=== PATIENT | female | born 1970 | race Caucasian/White ===

== ENCOUNTER 2022-10-09 23:36 | Emergency (ER) | payer MEDICAID, SELFPAY ==
[2022-10-09 23:41] VITALS: BP 144/91; PULSE 77; RESP 20; TEMP 36.8; O2SAT 98; BMI 47.9
--- NOTE | 2022-10-10 00:38 | ED_ITS ---
HPI - Back Pain/Injury General Chief Complaint: Back Pain/Injury Stated Complaint: FLANK PAIN- RIGHT SIDE, COLD Time Seen by Provider: 10/10/22 00:21 Source: patient Source comment: patient Mode of arrival: Wheelchair Limitations: no limitations History of Present Illness HPI Narrative: patient with chronic back pain - sees Dr Cox in [place]. She presents with pain in the mid right back - spasms that have been present for over a week. She had an injection procedure with Dr Cox on 10/03/22 and has been taking Tylenol and Gabapentin for the pain. She said it is not any better. No urinary symptoms, fever or vomiting. Pain localized to the right mid and lower back. no bowel or bladder dysfunction. No weakness, paralysis or sensory changes in the Lower Extremities. Related Data Allergies Allergy/AdvReac Type Severity Reaction Status Date / Time aspirin Allergy Uncoded 10/09/22 23:45 [facility] Social History Smoking status: Never smoker Exam Narrative Exam Narrative: General: Alert, no acute distress, patient resting comfortably Skin: warm, intact, no pallor noted Head: Normocephalic, atraumatic Eye: Normal conjunctiva Respiratory: No acute distress Back: inspection of the back shows no obvious deformity, no swelling, no ecchymosis, contusion, abrasion, swelling, erythema, fluctuance or induration. Tenderness noted to right paralumbar soft tissue. Straight leg raise on left is positive. Straight leg raise on right is positive. No CVA tenderness noted bilaterally. Musculoskeletal: No deformity noted to bilateral lower extremities. no cyanosis or mottling noted. normal pulses at DP and PT 2+ bilaterally and symmetrically. Normal 5/5 strength at ankles with dorsiflexion and plantar flexion. Patient is able to ambulate. Normal sensation noted to both lower extremities. Neurological: AAOx4, normal sensory and motor observed. L5-S1 reflexes intact symmetrically. DTR 2+ at patellar bilaterally. Psychiatric: Cooperative and interactive. Constitutional Vital Signs - 24 hr 10/09/22 23:41 Temperature 98.3 F Pulse Rate [Monitor] 77 Respiratory Rate 20 Blood Pressure [Right Arm] 144/91 H Pulse Oximetry 98 Oxygen Delivery Method Room Air Course Vital Signs Vital signs: Vital Signs Temperature 98.3 F 10/09/22 23:41 Pulse Rate 77 10/09/22 23:41 Respiratory Rate 20 10/09/22 23:41 Blood Pressure 144/91 H 10/09/22 23:41 Pulse Oximetry 98 10/09/22 23:41 Oxygen Delivery Method Room Air 10/09/22 23:41 Temperature 98.3 F 10/09/22 23:41 Pulse Rate 77 10/09/22 23:41 Respiratory Rate 20 10/09/22 23:41 Blood Pressure 144/91 H 10/09/22 23:41 Pulse Oximetry 98 10/09/22 23:41 Oxygen Delivery Method Room Air 10/09/22 23:41 MDM - Back Pain/Injury MDM Narrative Medical decision making narrative: no trauma, new neurological symptoms or exam findings consistent with acute cauda equina syndrome, spinal abscess or other acute neurosurgical emergency that requires radiographic testing or emergent intervention. 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 Discharge Plan Discharge Chief Complaint: Back Pain/Injury Clinical Impression: Acute exacerbation of chronic low back pain Patient Disposition: Home, Self-Care Time of Disposition Decision: 00:37 Instructions: Back Pain (ED) Stand Alone Forms: Portal Instructions Referrals: ARIANNE COX [Physician] - 1 week Follow Up [place]
[2022-10-10] MEDS: METHYLPREDNISOLONE SOD SUCC PF 125 MG/2 ML VIAL IM (01:02)
[2022-10-10] MEDS: KETOROLAC TROMETHAMINE 60 MG/2 ML VIAL IM (01:02)
== END 2022-10-10 01:10 | disposition home or self-care (01) ==
PROVIDERS: Emergency Provider Emergency Medicine
DX: M54.50 Low back pain, unspecified (principal); G89.29 Other chronic pain
CPT/HCPCS: 96372; 99284; J2930

== ENCOUNTER 2023-01-01 09:07 | Outpatient (OUT) | payer MEDICAID, SELFPAY ==
[2023-01-01 09:26] LABS: Basophils Percent Auto 0.5 % (0.2-2.0); Eosinophils Absolute Auto 0.1 10^3/uL (0.0-0.7); Eosinophils Percent Auto 2.3 % (0.9-7.0); Hematocrit 44.3 % (36.0-48.0); Immature Granulocytes Abs Auto 0.01 10^3/uL (0.00-0.03); Immature Granulocytes Pct Auto 0.2 % (0.0-0.5); Lymphocytes Absolute Auto 1.4 10^3/uL (1.2-3.8); Lymphocytes Percent Auto 24.1 % (20.5-60.0); Mean Corpuscular HGB Conc 33.9 g/dL (29.9-35.2); Mean Corpuscular Volume 88.6 fL (81.0-99.0); Mean Platelet Volume 10.1 fL (9.5-13.5); Monocytes Absolute Auto 0.4 10^3/uL (0.3-0.8); Monocytes Percent Auto 6.9 % (1.7-12.0); Neutrophils Absolute Auto 3.7 10^3/uL (1.4-6.5); Platelet Count 277 10^3/uL (150-450); Red Cell Distribution Width 13.2 % (11.0-15.0); White Blood Count 5.7 10^3/uL (4.0-11.0)
[2023-01-01 10:48] LABS: Alanine Aminotransferase 39 U/L (14-59); Albumin Globulin Ratio 0.7; Albumin Level 3.4 g/dL (3.4-5.0); Alkaline Phosphatase 102 U/L (46-116); Anion Gap 13.4; Aspartate Amino Transferase 23 U/L (15-37); BUN Creatinine Ratio 14.8; Bilirubin Total 0.6 mg/dL (0.2-1.0); Calcium 9.6 mg/dL (8.5-10.1); Carbon Dioxide 25.4 mmol/L (21.0-32.0); Chloride 102 mmol/L (98-107); Chol HDL Ratio 3.5; Cholesterol 151 mg/dL (<=200); Estimated GFR (African America >60 (>=60); Estimated GFR (Non-African Ame >60 (>=60); Free T3 3.11 pg/mL (2.18-3.98); Globulin 4.9 g/dL; Glucose 111 mg/dL (74-106); HDL Cholesterol 43 mg/dL (40-60); LDL Cholesterol Calculated 81.4 mg/dL; Potassium 3.8 mmol/L (3.5-5.1); Sodium 137 mmol/L (136-145); Total Protein 8.3 g/dL (6.4-8.2); Triglycerides 133 mg/dL (<=150); VLDL CHOLESTEROL 26.6 mg/dL
[2023-01-01 11:16] LABS: Estimated Average Glucose 123 mg/dL; Glycohemoglobin A1C 5.9 % (4.5-6.2)
[2023-01-02 10:11] LABS: Insulin 34.9 uIU/mL (2.6-24.9)
== END 2023-01-01 09:08 | disposition home or self-care (01) ==
LOC: LAB 09:09
PROVIDERS: PCP Nurse Practitioner Family; Visit Provider Nurse Practitioner Family
DX: Z02.89 Encounter for other administrative examinations (principal); E78.70 Disorder of bile acid and cholesterol metabolism, unspecified; R53.83 Other fatigue; E16.1 Other hypoglycemia; E55.9 Vitamin D deficiency, unspecified
CPT/HCPCS: 36415; 80053; 80061; 82306; 83036; 83525; 83540; 84436; 84443; 84481; 85025

== ENCOUNTER 2023-03-31 16:17 | Outpatient (OUT) | payer MEDICAID, SELFPAY | END 2023-03-31 16:18 | disposition home or self-care (01) | LOC: SLEEP 16:17 | DX: G47.33 Obstructive sleep apnea (adult) (pediatric) (principal) | CPT/HCPCS: 95806 ==

== ENCOUNTER 2023-05-15 16:04 | Outpatient (OUT) | payer MEDICAID, SELFPAY ==
--- NOTE | 2023-05-15 16:09 | MR_ITS ---
The [address] [address] Patient Name: DOUG CARO MRN: [facility]:[id number] date: 1970 Sex: F Assigned Patient Location: MRI Current Patient Location: MRI Accession/Order Number: [id number] Exam Date: 05/15/2023 16:50 Report Date: 05/16/2023 11:17 At the request of: RATNA LOPEZ Procedure: MR head/brain wo/w con EXAM: MR head/brain wo/w con HISTORY: chronic migraine without aura G43.709 COMPARISON: MR brain 03/26/2021. TECHNIQUE: Multiplanar multisequence MR imaging of the brain was performed with and without intravenous contrast. FINDINGS: Calvarium/skull base: No focal marrow replacing lesion suggestive of neoplasm. Orbits: Grossly unremarkable. Paranasal sinuses: Diffuse mild to moderate mucosal thickening of the paranasal sinuses. No air-fluid level. Brain: No restricted diffusion. Similar mild T2 FLAIR signal hyperintensities are present involving supratentorial white matter. Parenchymal volume is grossly appropriate. No mass effect, hemorrhage, or hydrocephalus. Grossly normal flow-related signal in the major intracranial arteries and dural sinuses. Additional comments: Subtotal right mastoid effusion. MR/MR head/brain wo/w con IMPRESSION: 1. No acute intracranial process. 2. Scattered nonenhancing T2 hyperintense white matter lesions which are nonspecific, typically attributed to prior trauma/inflammation/demyelination, or chronic ischemia associated with migraine/atherosclerosis. 3. The nasal sinus disease. No air-fluid level. Electronically authenticated by: LAY MAXWELL Date: 05/16/2023 11:17
--- OUTSIDE RECORDS SUMMARY | 2023-05-15 16:09 | XMS_ITS | CCD ---
Author Name Unknown Address [address] [place] [address] Organization [facility] Care Team Providers Care Payroll Supervisor Name Role Phone ELTAHAWY, EHAB A Admitting Unavailable ELTAKAREEM, EHAB A Attending Unavailable ALYSSA ARREOLA Primary Care Unavailable ALYSSA ARREOLA Referring Unavailable ALYSSA ARREOLA Primary Care Physician [phone] Asif Cox Unavailable Destini Kilgore Unavailable Mellissa Strange Unavailable MATTHIAS Arreola Primary Care Provider MD Asif Cox Attending Provider [phone] ADONAY Arreola-Jess Shah Lesly Primary Care Provider MD Asif Cox Attending Provider ADONAY Arreola-Jess Grace Primary Care Provider MD Asif Cox Attending Provider ALYSSA ARREOLA Primary Care Unavailable ALYSSA ARREOLA Admitting Unavailable ALYSSA ARREOLA Attending Unavailable SOLITARIO ., DR KIDD Attending Unavailable SOLITARIO ., DR KIDD Consulting Unavailable ALYSSA ARREOLA Primary Care Unavailable SOLITARIO ., DR KIDD Admitting Unavailable SOLITARIO ., DR KIDD Attending Unavailable SOLITARIO ., DR KIDD Consulting Unavailable MAXWELL ALYSSA Primary Care Unavailable SOLITARIO ., DR KIDD Admitting Unavailable ZIEBER, DR AGUSTIN Yu Consulting Unavailable MAXWELL, ALYSSA Admitting Unavailable MAXWELL, ALYSSA Attending Unavailable ALYSSA ARREOLA Consulting Unavailable MAXWELL, ALYSSA Primary Care Unavailable MAXWELL, ALYSSA Admitting Unavailable MAXWELL, ALYSSA Attending Unavailable MAXWELL, ALYSSA Consulting Unavailable MAXWELL, ALYSSA Primary Care Unavailable DIAB ., FRANNIE Admitting Unavailable MELLISSA PRIEST Consulting Unavailable MAXWELL, ALYSSA Primary Care Unavailable DIAB ., FRANNIE Attending Unavailable DIAB ., FRANNIE Consulting Unavailable HAY ., DR DELACRUZ Admitting Unavailable HAY ., DR DELACRUZ Attending Unavailable HAY ., DR DELACRUZ Consulting Unavailable MAXWELL, ALYSSA Primary Care Unavailable CHELY KEITH Consulting Unavailable MAXWELL, ALYSSA Primary Care Unavailable BROOKE, ASIF Attending Unavailable BROOKE, ASIF Admitting Unavailable BROOKE, ASIF Admitting Unavailable MAXWELL, ALYSSA Primary Care Unavailable BROOKE, ASIF Attending Unavailable SOLITARIO ., DR KIDD Consulting Unavailable SOLITARIO ., DR KIDD Admitting Unavailable SOLITARIO ., DR KIDD Attending Unavailable MAXWELL, ALYSSA Primary Care Unavailable ZIEBER, DR AGUSTIN Yu Consulting Unavailable MAXWELL, ALYSSA Primary Care Unavailable MAXWELL, ALYSSA Admitting Unavailable MAXWELL, ALYSSA Attending Unavailable MAXWELL, ALYSSA Consulting Unavailable SUSIE ESTRADA Admitting Unavailable SEAN, SUSIE Attending Unavailable SPROUSUSIE Lal Consulting Unavailable MAXWELL, ALYSSA Primary Care Unavailable SOLITARIO ., DR KIDD Admitting Unavailable SOLITARIO ., DR KIDD Attending Unavailable SOLITARIO ., DR KIDD Consulting Unavailable MAXWELL, ALYSSA Primary Care Unavailable SOLITARIO ., DR KIDD Admitting Unavailable MAXWELL, ALYSSA Primary Care Unavailable SOLITARIO ., DR KIDD Attending Unavailable Maxwell, SANDWICH ARTIST[facility] Primary [facility] Provider Jame, ADONAY Destini Attending Provider WATSON CARDENAS Attending Unavailable Dioni Flores Attending Unavailable Brooke, Asif S Admitting Unavailable Brooke, Asif S Attending Unavailable Maxwell, Alysas Lesly Primary Care Unavailable Kilgore, Destini Admitting Unavailable Kilgore, Destini Attending Unavailable Maxwell, Alyssa Lesly Primary Care Unavailable Glynn, Alexey Admitting Unavailab le Glynn, Alexey Attending Unavailab le Maxwell, Alyssa Lesly Primary Care Unavailable Brooke, Asif S Admitting Unavailable Brooke, Asif S Attending Unavailable Maxwell, Alyssa Lesly Primary Care Unavailable Brooke, Asif S Admitting Unavailable Brooke, Asif S Attending Unavailable Maxwell, Alyssa Lesly Primary Care Unavailable Allergies Allergy Classification Reported Allergen(s) Allergy Type Date of Onset Reaction(s) Facility (20 sources) Aspirin; Translations: [aspirin] Drug Allergy 2 Tremor (finding) [place] Other (7 sources) Desonide; Translations: [desonide topical] Drug Allergy 3 Unknown [facility] (4 sources) Tape 1 Drug allergy Eruption of skin (disorder) [facility] Comment on above: adhesive (6 sources) Adhesive Tape; Translations: [adhesive tape] Allergy to substance 2 Rash [facility] (2 sources) Aspirin Drug Allergy 3 [facility] (1 source) Adhesive Tape; Translations: [Tape] Propensity to adverse reactions (disorder) [facility] Repository (1 source) Aspirin Drug Allergy 3 [facility] Repository Medications Current Medications Medication Drug Class(es) Dates Sig (Normalized) Sig (Original) Aimovig SureClick 70 mg/mL subcutaneous solution (2 sources) Start: 08-09-2021 Aimovig SureClick 70 mg/mL subcutaneous solution 70 mg Start Date: 08/09/21 Status: Ordered atorvastatin (20 sources) HMG-CoA Reductase Inhibitor Start: 04-23-2019 atorvastatin Oral, Daily, Refills(s) 0 Start Date: 04/23/19 Status: Ordered take 1 tablet by elyssa th every twenty-four hours Lipitor 40 MG 1 tablet Orally Once a day Not-Taking/PRN benztropine mesylate 0.5 mg oral tablet (20 sources) Anticholinergic, Antihistamine Start: 03-06-2021 take 0.5 mg by mouth twice daily Benztropine Active 0.5 MG PO Twice daily March 06, 2021 12:00am Start: 04-23-2019 benztropine Re fills(s) 0 Start Date: 04/23/19 Status: Ordered take 1 tablet by elyssa th every twenty-four hours Benztropine Mesylate 0.5 MG 1 tablet at bedtime Orally Once a day Active brexpiprazole 4 mg oral tablet (20 sources) Atypical Antipsychotic Start: 03-06-2021 take 1 tablet by mouth once daily in the evening Brexpiprazole (Rexulti) 4 mg tablet Active 4 MG PO Every evening March 06, 2021 12:00am cephalexin 500 mg oral capsule (2 sources) Cephalosporin Antibacterial Start: 10-09-2021 End: 10-16-2021 take 1 capsule by mouth every twelve hours Keflex 500 mg Cap 500 mg = 1 cap(s), Oral, q12hr, X 7 day(s), # 14 cap(s), Refills(s) 0, Pharmacy: [facility]/pharmacy #[id number], 173, cm, 08/09/21 11:09:00 EDT, Height/Length Dosing, 142, kg, 08/09/21 11:09:00 EDT, Weight Dosing Start Date: 10/09/21 Stop Date: 10/16/21 Status: Ordered cyclobenzaprine hydrochloride 5 mg oral tablet (19 sources) Muscle Relaxant Start: 08-29-2021 take 5 mg by mouth once daily at bedtime Cyclobenzaprine Active 5 MG PO Daily at bedtime August 28, 2021 11:00pm Daily Mohan (20 sources) take 1 tablet by mouth twice daily Daily Mohan 1 tablet Orally Twice a day Active Daily Mohan - (10 sources) take 1 tablet by mouth once daily Daily Mohan - 1 tablet Orally Once a day Active diclofenac sodium 75 mg delayed release oral tablet (15 sources) Nonsteroidal Anti-inflammatory Drug Start: take 1 tablet by mouth every twelve hours Diclofenac Sodium 75 MG 1 tablet as needed Orally Twice a day for 7 days Oct, Active Start: 04-23-2019 diclofenac Ora l, Refills(s) 0 Start Date: 04/23/19 Status: Ordered duloxetine (4 sources) Serotonin and Norepinephrine Reuptake Inhibitor Start: 04-23-2019 duloxetine Oral, Refills(s) 0 Start Date: 04/23/19 Status: Ordered 1 ml erenumab-aooe 70 mg/ml auto-injector (2 sources) Start: 08-09-2021 Aimovig SureCl ick 70 mg/mL subcutaneous solution 70 mg Start Date: 08/09/21 Status: Ordered famotidine 40 mg oral tablet (5 sources) Histamine-2 Receptor Antagonist Start: 03-06-2021 take 40 mg by mouth twice daily Famotidine Active 40 MG PO Twice daily March 06, 2021 12:00am fluticasone propionate 0.05 mg/actuat metered dose nasal spray (7 sources) Corticosteroid Start: 03-06-2021 Fluticasone Propionate Active 50 MCG INTRANASAL Daily March 06, 2021 12:00am Start: 05-03-2019 fluticasone 0. 05 mg/inh Nasal Ackley Nasal, Daily, Refill(s) 0 Start Date: 05/03/19 Status: Ordered fluticasone 0.05 mg/inh Nasal Ackley (2 sources) Start: 05-03-2019 fluticasone 0. 05 mg/inh Nasal Ackley Nasal, Daily, Refill(s) 0 Start Date: 05/03/19 Status: Ordered furosemide 40 mg oral tablet (5 sources) Loop Diuretic Start: 03-06-2021 take 40 mg by mouth twice daily Furosemide Active 40 MG PO Twice daily March 06, 2021 12:00am gabapentin 300 mg oral capsule (20 sources) Anti-epileptic Agent Start: 08-29-2021 take 300 mg by mouth three times daily Gabapentin Active 300 MG PO Three times daily August 28, 2021 11:00pm Start: 08-02-2021 Gabapentin 300 MG 1 capsule Orally once daily for 3-4 days gradually increasing by 1 cap until taking 1 capsule three times daily for 30 day(s) G89.29 Chronic pain Jul, Active Start: 04-23-2019 gabapentin Ora l, Refills(s) 0 Start Date: 04/23/19 Status: Ordered Gabapentin 400 M G 1 capsule Orally two to three times daily for 30 days G89.29 Chronic pain Active Gabapentin 500 m g Orally Twice a day Active lamoTRIgine 200 mg oral tablet (20 sources) Mood Stabilizer, Anti-epileptic Agent Start: 03-06-2021 take 100 mg by mouth once daily Lamotrigine Active 100 MG PO Daily March 06, 2021 12:00am Start: 03-06-2021 take 200 mg by mouth once colby y Lamotrigine Active 200 MG PO Daily March 06, 2021 12:00am take 1 tablet by elyssa every twenty-four hours lamoTRIgine 200 MG 1 tablet on the tongue and allow to dissolve Orally Once a day Active linaclotide 0.145 mg oral capsule (1 source) Guanylate Cyclase-C Agonist Start: 07-04-2021 take 1 capsule by mouth every twenty-four hours Linzess 145 MCG 1 CAPSULE Orally Once a day for 30 day(s) Jun, Active Meclizine (4 sources) Antiemetic Start: 04-23-2019 meclizine TID, Refills(s) 0 Start Date: 04/23/19 Status: Ordered meloxicam (4 sources) Nonsteroidal Anti-inflammatory Drug Start: 04-23-2019 meloxicam Oral, Daily, Refills(s) 0 Start Date: 04/23/19 Status: Ordered methocarbamol 750 mg oral tablet (9 sources) Muscle Relaxant take 1 tablet by mouth every four hours Methocarbamol 750 MG 1 tablet Orally every 4 hrs Active methylPREDNISolone 4 mg oral tablet (2 sources) Corticosteroid Start: 04-09-2023 Medrol (Sebastian) 4 MG as directed Orally for daily dose take half with breakfast half with dinner for 6 days Mar, Active naratriptan 2.5 mg oral tablet (10 sources) Serotonin-1b and Serotonin-1d Receptor Agonist take 1 tablet by mouth every twenty-four hours Naratriptan HCl 2.5 MG 1 tablet Orally Once a day Active omeprazole 40 mg delayed release oral capsule (10 sources) Proton Pump Inhibitor take 1 capsule by mouth once daily Omeprazole 40 MG 1 capsule 30 minutes before morning meal Orally Once a day Active oxyCODONE hydrochloride 5 mg oral capsule (4 sources) Opioid Agonist Start: 02-28-2020 take 1 mg by mouth every six hours oxyCODONE 5 mg Cap mg cap(s), Oral, q6hr, Refills(s) 0 Start Date: 02/28/20 Status: Ordered pantoprazole 40 mg delayed release oral tablet (9 sources) Proton Pump Inhibitor Start: 03-06-2021 take 40 mg by mouth twice daily Pantoprazole Active 40 MG PO Twice daily March 06, 2021 12:00am Start: 04-23-2019 pantoprazole D aily, Refills(s) 0 Start Date: 04/23/19 Status: Ordered rizatriptan 10 mg disintegrating oral tablet (20 sources) Serotonin-1b and Serotonin-1d Receptor Agonist Start: 08-29-2021 Rizatriptan Active 10 MG PO As Directed August 28, 2021 11:00pm take 1 tablet by elyssa th every twenty-four hours Maxalt 10 MG 1 tablet Orally Once a day Not-Taking/PRN simvastatin 40 mg oral tablet (10 sources) HMG-CoA Reductase Inhibitor take 1 tablet by mouth every twenty-four hours Simvastatin 40 MG 1 tablet in the evening Orally Once a day Active spironolactone 50 mg oral tablet (20 sources) Aldosterone Antagonist Start: 2020 take 50 mg by mouth once daily Spironolactone Active 50 MG PO Daily March 06, 2021 12:00am sucralfate 1000 mg oral tablet (5 sources) Aluminum Complex Start: 2020 take 1 g by mouth four times daily Sucralfate Active 1 GM PO Four times daily March 06, 2021 12:00am sulfamethoxazole 800 mg / trimethoprim 160 mg oral tablet (2 sources) Dihydrofolate Reductase Inhibitor Antibacterial, Sulfonamide Antimicrobial Start: 2021 End: 2021 Bactrim DS 800 mg-160 mg Tab 1 tab(s), Oral, BID for 7 day(s), 14 tab(s), Refill(s) 0, [facility]/pharmacy #[id number], 173, cm, 08/09/21 11:09:00 EDT, Height/Length Dosing, 142, kg, 08/09/21 11:09:00 EDT, Weight Dosing Start Date: 08/09/21 Stop Date: 08/16/21 Status: Ordered SZSTANDARD1-Topical Cream Baclofen 2%, Cyclobenzaprine HCL 2%, Diclofenac Na 3%, Gabapentin 6%, Lidocaine HCL 2% Cream (15 sources) Start: 2021 SZSTANDARD1-Topical Cream Baclofen 2%, Cyclobenzaprine HCL 2%, Diclofenac Na 3%, Gabapentin 6%, Lidocaine HCL 2% Cream 1-2 grams TOPICALLY APPLY 1-2 GRAMS FOR 2-3 MINUTES EVERY 6-8 HOURS for 30 days G89.29 Chronic pain Sep, Active TENS Unit (20 sources) Start: 2022 TENS Unit Use as directed. Apr, Active Start: 01-18-2022 TENS Unit Use as directed. Dec, Active tiZANidine 4 mg oral tablet (1 source) Central alpha-2 Adrenergic Agonist Start: 10-15-2021 tiZANidine HCl 4 MG 1/2 to 1 tablet as needed Orally once to twice daily as needed for 30 days G89.29 Chronic pain Sep, Active 24 hr tolterodine tartrate 4 mg extended release oral capsule (10 sources) Cholinergic Muscarinic Antagonist Start: 03-06-2021 take 4 mg by mouth once daily Tolterodine Active 4 MG PO Daily March 06, 2021 12:00am Start: 03-06-2021 End: 08-29-2021 Tolterodine Discontinued 2 M G PO As Directed March 06, 2021 12:00am August 29, 2021 9:31am 24 hr venlafaxine 75 mg extended release oral capsule (20 sources) Serotonin and Norepinephrine Reuptake Inhibitor Start: 03-06-2021 take 225 mg by mouth once daily Venlafaxine Active 225 MG PO Daily March 06, 2021 12:00am take 2 capsules by m outh every twenty-four hours Venlafaxine HCl ER 150 MG 2 capsule with food Orally Once a day Active take 1 capsule by mo uth every twenty-four hours Effexor XR 75 MG 1 capsule with food Orally Once a day Not-Taking take 1 capsule by mo uth every twenty-four hours Venlafaxine HCl ER 150 MG 1 capsule with food Orally Once a day Active take 1 tablet by elyssa th every twenty-four hours Venlafaxine HCl 75 MG 1 tablet with food Orally Once a day Active zonisamide 100 mg oral capsu le (17 sources) Anti-epileptic Agent take 1 capsule by m outh every twenty-four hours Completed/Discontinued Medications Medication Drug Class(es) Dates Sig (Normalized) Sig (Original) acetaminophen 325 mg / butalbital 50 mg oral tablet (20 sources) Barbiturate take 1 tablet by elyssa th every four hours Butalbital-Acetamin ophen 50-325 MG 1 tablet as needed Orally every 4 hrs Not-Taking/PRN take 1 tablet by mouth every fou r hours acetaminophen 325 mg / butalbital 50 mg / caffeine 40 mg oral tablet (5 sources) Barbiturate, Central Nervous System Stimulant, Methylxanthine Start: 03-06-2021 End: 05-04-2022 [id number]-Qkw f Discontinued 1 TAB PO As Directed March 06, 2021 12:00am August 29, 2021 9:35am amitriptyline hydrochloride 150 mg oral tablet (20 sources) Tricyclic Antidepressant take 1 tablet by mouth every twenty-fo ur hours Amitriptyline HCl 150 MG 1 tablet at bedtime Orally Once a day Not-Taking/PRN azithromycin 250 mg oral tablet (5 sources) Macrolide Antimicrobial Start: 03-06-2021 End: 08-15-2021 Azithromycin Discontinued MG TABLET March 06, 2021 12:00am August 15, 2021 8:58am docusate sodium 50 mg / sennosides, shelter 8.6 mg oral tablet (20 sources) Start: 07-09-2021 take 8.6-50 mg by mouth once daily at bedtime Senokot S 8.6-50 MG 2 tab(s) Orally qhs for 30 day(s) Jun, Not-Taking/PRN Emgality (15 sources) Emgality Not-Maicol ing/PRN Emgality Not-Maicol ing Emgality Active nitrofurantoin, macrocrystals 25 mg / nitrofurantoin, monohydrate 75 mg oral capsule (9 sources) Nitrofuran Antibacterial take 1 capsule by mouth every twenty-four hours Macrobid 100 MG 1 capsule with food Orally Once a day Not-Taking PARoxetine hydrochloride 20 mg oral tablet (20 sources) Serotonin Reuptake Inhibitor Start: End: Paroxetine Hcl Discontinued 20 MG PO As Directed March 06, 2021 12:00am August 29, 2021 9:35am Start: 04-23-2019 paroxetine Ora l, Refills(s) 0 Start Date: 04/23/19 Status: Ordered take 2 tablets by mo [facility] every twenty-four hours Paxil 30 MG 2 tablets Orally Once a day Not-Taking take 2 tablets by mo ut every twenty-four hours microencapsulated potassium chloride 20 meq extended release oral tablet (5 sources) Start: 03-06-2021 End: 08-29-2021 Potassium Chloride (Klor-Con M20) 20 mEq tablet,ER particles/crystals Discontinued 20 MEQ PO As Directed March 06, 2021 12:00am August 29, 2021 9:35am solifenacin succinate 5 mg oral tablet (9 sources) Cholinergic Muscarinic Antagonist take 1 tablet by mouth every twenty-fou r hours VESIcare 5 MG 1 tablet Orally Once a day Not-Taking SUMAtriptan 100 mg oral tablet (20 sources) Serotonin-1b and Serotonin-1d Receptor Agonist take 1 tablet by mouth every two hours as needed, then take 1 tablet by mouth twice daily as needed Imitrex 100 MG 1 tablet at least 2 hours between doses as needed Orally Twice a day Not-Taking/PRN topiramate 100 mg oral tablet (18 sources) Start: 03-06-2021 End: 08-29-2021 Topiramate Discontinued 100 MG PO As Directed March 06, 2021 12:00am August 29, 2021 9:35am Start: 04-23-2019 topiramate Ora l, Refills(s) 0 Start Date: 04/23/19 Status: Ordered triamcinolone acetonide 40 mg/ml injectable suspension (20 sources) Corticosteroid Start: 10-03-2022 Kenalog-40 Dec, 60 mg Start: 02-07-2022 Kenalog-40 Jan, 40 mg Start: 11-20-2020 Kenalog -40 mg Oct, 40 mg Problems Active Problems Problem Classification Problem Date Documented Da te Episodic/Chronic Abdominal pain (5 sources) Lower abdominal pain; Translations: [Lower abdominal pain, unspecified] 07-18-2021 Episodic Anxiety disorders (1 source) Anxiety disorder, unspecified; Translations: [ANXIETY DISORDER UNSPECIFIED] Onset: 2 Chronic Disorders of lipid metabolism (20 sources) Hyperlipidemia; Translations: [Dyslipidemia] Onset: 2 04-23-2019 Chronic Epilepsy; convulsions (4 sources) Seizure 04-23-2019 Episodic Esophageal disorders (20 sources) Gastroesophageal reflux disease; Translations: [Gastro-esophageal reflux disease without esophagitis] Onset: 2 Resolved: 2 04-23-2019 Chronic Essential hypertension (1 source) Essential (primary) hypertension; Translations: [ESSENTIAL PRIMARY HYPERTENSION] Onset: 2 Chronic Genitourinary symptoms and ill-defined conditions (20 sources) Urge incontinence; Translations: [Urge incontinence of urine] Onset: 2 Chronic Genitourinary symptoms and ill-defined conditions (20 sources) Retention of urine; Translations: [Retention of urine, unspecified] Onset: 2 Episodic Headache; including migraine (20 sources) Migraine; Translations: [Migraine, unspecified, not intractable, without status migrainosus] 04-23-2019 Chronic Immunizations and screening for infectious disease (1 source) Encounter for screening for human papillomavirus (HPV); Translations: [ENC SCREENING HUMAN PAPILLOMAVIRUS] Onset: 3 Episodic Mood disorders (20 sources) Depressive disorder; Translations: [Major depressive disorder, single episode, unspecified] Onset: 2 04-23-2019 Chronic Mood disorders (1 source) Mood disorders; Translations: [DEPRESSION UNSPECIFIED] Onset: 3 Osteoarthritis (20 sources) Arthritis; Translations: [Osteoarthritis of knee] Onset: 3 04-23-2019 Chronic Other aftercare (1 source) Other positive printer operator (current) drug therapy; Translations: [OTH TANK ERECTOR CURRENT DRUG THERAPY] Onset: 3 Episodic Other connective tissue disease (20 sources) Fibromyalgia; Translations: [Fibromyalgia] 04-23-2019 Episodic Other connective tissue disease (5 sources) Myalgia, other site Episodic Other connective tissue disease (4 sources) Fibromyalgia; Translations: [FIBROMYALGIA] Onset: 3 Episodic Other female genital disorders (1 source) Polyp of corpus uteri; Translations: [POLYP OF CORPUS UTERI] Onset: 3 Episodic Other gastrointestinal disorders (20 sources) Irritable bowel syndrome; Translations: [Irritable bowel syndrome without diarrhea] Chronic Other gastrointestinal disorders (20 sources) Irritable bowel syndrome characterized by constipation; Translations: [Irritable bowel syndrome with constipation] Chronic Other gastrointestinal disorders (1 source) Irritable bowel syndrome with constipation Onset: 2 Resolved: 2 Chronic Other gastrointestinal disorders (20 sources) Constipation; Translations: [Constipation, unspecified] 07-18-2021 Episodic Other nervous system disorders (4 sources) Neuropathy 04-23-2019 Chronic Other nervous system disorders (20 sources) Chronic pain; Translations: [Other chronic pain] Chronic Other nervous system disorders (20 sources) Other chronic pain Onset: 1 Resolved: 2 Chronic Other nervous system disorders (1 source) Other disorders of peripheral nervous system; Translations: [OTH DISORDERS PERIPHERAL NERV SYS] Onset: 3 Chronic Other nervous system disorders (1 source) Other chronic pain; Translations: [Other chronic pain] Onset: 3 Chronic Other non-traumatic joint disorders (4 sources) Shoulder joint pain; Translations: [Pain in right shoulder] Episodic Other non-traumatic joint disorders (8 sources) Pain in right shoulder; Translations: [Right shoulder pain] Episodic Other non-traumatic joint disorders (2 sources) Pain in right knee Episodic Other non-traumatic joint disorders (1 source) Pain in left hip Episodic Other nutritional; endocrine; and metabolic disorders (4 sources) Body mass index 40+ - severely obese 05-03-2019 Chronic Other nutritional; endocrine; and metabolic disorders (20 sources) Morbid obesity; Translations: [Morbid (severe) obesity due to excess calories] Chronic Other nutritional; endocrine; and metabolic disorders (1 source) Morbid (severe) obesity due to excess calories Onset: 2 Resolved: 2 Chronic Other nutritional; endocrine; and metabolic disorders (5 sources) 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, unspecified; Translations: [DISORDER BILE ACID CHOL METAB UNS] Onset: 2 Chronic Other screening for suspected conditions (not mental disorders or infectious disease) (13 sources) Encounter for screening for malignant neoplasm of cervix; Translations: [Encounter for screening mammogram for malignant neoplasm of breast] Onset: 2 Episodic Other upper respiratory infections (1 source) Acute laryngitis; Translations: [ACUTE LARYNGITIS] Onset: 3 Episodic Residual codes; unclassified (20 sources) Obstructive sleep apnea syndrome; Translations: [Obstructive sleep apnea (adult) (pediatric)] Chronic Residual codes; unclassified (1 source) Obstructive sleep apnea (adult) (pediatric); Translations: [OBSTRUCTIVE SLEEP APNEA] Onset: 3 Chronic Residual codes; unclassified (4 sources) Asymptomatic menopausal state; Translations: [ASYMPTOMATIC MENOPAUSAL STATE] Onset: 3 Episodic Screening and history of mental health and substance abuse codes (1 source) Personal history of nicotine dependence; Translations: [PERSONAL HISTORY OF NICOTINE DEPEND] Onset: 3 Episodic Spondylosis; intervertebral disc disorders; other back problems (20 sources) Lumbosacral spondylosis without myelopathy; Translations: [Spondylosis without myelopathy or radiculopathy, lumbosacral region] Onset: 1 Resolved: 2 Chronic Unclassified (2 sources) COUGH, UNSPECIFIED; Translations: [COUGH, UNSPECIFIED] Onset: 3 Unclassified (1 source) CONTACT W/AND (SUSP) EXPOS COVID-19; Translations: [CONTACT W/AND (SUSP) EXPOS COVID-19] Onset: 3 Unclassified (1 source) Pain in left hip; Translations: [Pain in left hip] Onset: 3 Unclassified (1 source) Pain in right shoulder; Translations: [Pain in right shoulder] Onset: 3 Urinary tract infections (5 sources) Urinary tract infectious disease; Translations: [Urinary tract infection, site not specified] Onset: 2 07-03-2020 Episodic Viral infection (1 source) Viral infection, unspecified; Translations: [VIRAL INFECTION UNSPECIFIED] Onset: 3 Episodic Past or Other Problems Problem Classification Problem Date Documented Da te Episodic/Chronic Conditions associated with dizziness or vertigo (1 source) Dizziness and giddiness; Translations: [DIZZINESS AND GIDDINESS] Onset: 10-24-2021 Episodic Deficiency and other anemia (1 source) Anemia, unspecified; Translations: [ANEMIA UNSPECIFIED] Onset: 09-06-2021 Episodic Diabetes mellitus without complication (1 source) Other abnormal glucose; Translations: [OTHER ABNORMAL GLUCOSE] Onset: 09-06-2021 Episodic Nonspecific chest pain (4 sources) Chest pain, unspecified; Translations: [Other chest pain] Onset: 10-23-2021 Episodic Other endocrine disorders (4 sources) Endocrine disorder, unspecified; Translations: [ENDOCRINE DISORDER UNSPECIFIED] Onset: 05-20-2022 Episodic Other inflammatory condition of skin (1 source) Other pruritus; Translations: [OTHER PRURITUS] Onset: 05-22-2022 Episodic Other non-traumatic joint disorders (2 sources) Pain in left knee Onset: 06-07-2021 Resolved: 07-09-2021 Episodic Spondylosis; intervertebral disc disorders; other back problems (20 sources) Cervicalgia; Translations: [Dorsalgia, unspecified] Onset: 02-26-2021 Resolved: 10-15-2021 Episodic Unclassified (1 source) COUGH, UNSPECIFIED; Translations: [COUGH, UNSPECIFIED] Onset: 07-14-2022 Results Test Name Value Interpretation Reference Range Facility XR hip LT min 2V(w/wo pelvis )*on 04-09-2023 XR hip LT min 2V(w/wo pelvis)* [address] [address] XRay Report Signed Patient: Shailesh Blake MR#: [id number] : 1970 Acct:[id number] Age/Sex: 52 / F ADM Date: 04/09/23 Loc: XD Room: Type: [facility] Attending Dr: Destini Kilgore SANDWICH ARTIST Copies to: Destini Kilgore NP Ordering Provider: Destini Kilgore NP Date of Service: 04/09/23 XR/XR hip LT min 2V(w/wo pelvis)*: Left hip pain Left hip 2 views. Reason for exam: Left hip pain radiates into the joint and down into the knee for 3 days. COMPARISON: None. FINDINGS: Mild degenerative changes of the left hip without acute bony process. XR/XR hip LT min 2V(w/wo pelvis)* IMPRESSION: Mild degenerative changes of the left hip without acute bony process. Impression dictated by: Memo Blanchard Jr., D.O.04/09/2023 3:57 PM Dictation Location: [place] [address] Transcribed By: [facility] 04/09/23 1557 Dictated By: Memo Blanchard Jr, DO 04/09/23 1557 Signed By: 04/09/23 1557 Normal [facility] XR hip LT min 2V(w/wo pelvis)* [facility] [employer] Other XR hip LT min 2V(w/wo pelvis)* [facility] [employer] Other XR hip LT min 2V(w/wo pelvis)* [address] [place] [address] [employer] Other XR hip LT min 2V(w/wo pelvis)* [place] [address] [facility] Other XR hip LT min 2V(w/wo pelvis)* XRay Report [facility] Other XR hip LT min 2V(w/wo pelvis)* Signed [facility] Other XR hip LT min 2V(w/wo pelvis)* Patient: Shailesh Blake MR#: [id number] [facility] Other XR hip LT min 2V(w/wo pelvis)* : 1970 Acct:[id number] [facility] Other XR hip LT min 2V(w/wo pelvis)* Age/Sex: 52 / F ADM Date: 04/09/23 [facility] Other XR hip LT min 2V(w/wo pelvis)* Loc: XD Room: Type: REG CLI [facility] Other XR hip LT min 2V(w/wo pelvis)* Attending Dr: Destini Kilgore NP [facility] Other XR hip LT min 2V(w/wo pelvis)* Copies to: Destini Kilgore NP [facility] Other XR hip LT min 2V(w/wo pelvis)* Ordering Provider: Destini Kilgore NP [facility] Other XR hip LT min 2V(w/wo pelvis)* Date of Service: 04/09/23 [facility] Other XR hip LT min 2V(w/wo pelvis)* XR/XR hip LT min 2V(w/wo pelvis)*: Left hip pain [facility] Other XR hip LT min 2V(w/wo pelvis)* Left hip 2 views. [facility] Other XR hip LT min 2V(w/wo pelvis)* Reason for exam: Left hip pain radiates into the joint and down into the knee for 3 days. [facility] Other XR hip LT min 2V(w/wo pelvis)* COMPARISON: None. [facility] Other XR hip LT min 2V(w/wo pelvis)* FINDINGS: Mild degenerative changes of the left hip without acute bony process. [facility] Other XR hip LT min 2V(w/wo pelvis)* XR/XR hip LT min 2V(w/wo pelvis)* [facility] Other XR hip LT min 2V(w/wo pelvis)* IMPRESSION: Mild degenerative changes of the left hip without acute bony process. [facility] Other XR hip LT min 2V(w/wo pelvis)* Impression dictated by: Memo Blanchard Jr., DPromiseOPromise04/09/2023 3:57 PM [facility] Other XR hip LT min 2V(w/wo pelvis)* Dictation Location: [place] [address] [facility] Other XR hip LT min 2V(w/wo pelvis)* Transcribed By: [facility] 04/09/23 [facility] Other XR hip LT min 2V(w/wo pelvis)* Dictated By: Memo Blanchard Jr, DO 04/09/23 [facility] Other XR hip LT min 2V(w/wo pelvis)* Signed By: [facility] Other XR hip LT min 2V(w/wo pelvis)* 04/09/23 [facility] Other XR thoracic spine 3V*on XR thoracic spine 3V* [facility] Main [place] [address] [place] [id number] XRay Report Signed Patient: Shailesh Blake MR#: [id number] : 1970 Acct:[id number] Age/Sex: 51 / F ADM Date: 10/31/22 Loc: XD Room: Type: [facility] Attending Dr: Asif Cox MD Copies to: Asif Cox MD Ordering Provider: Asif Cox MD Date of Service: 10/31/22 XR/XR thoracic spine 3V*: Mid back pain THORACIC SPINE - - 3 views CLINICAL HISTORY: Fall 3 days ago. Mid back pain. COMPARISON: Thoracic spine 10/15/2021 FINDINGS: Vertebral body heights appear maintained. Endplate degenerative changes. Pedicles appear intact. XR/XR thoracic spine 3V* IMPRESSION: DEGENERATIVE CHANGES WITHOUT ACUTE BONY PROCESS. Impression dictated by: Memo Blanchard Jr., D.O.10/31/2022 7:23 PM Dictation Location: [place] [address] Transcribed By: [facility] 10/31/221922 Dictated By: Memo Blanchard Jr, DO 10/31/221922 Signed By: 10/31/221922 Normal [facility] US PELVIS AND TRANSVAGon US PELVIS AND TRANSVAG EXAMINATION: US PELVIS AND TRANSVAG HISTORY: Polyp of corpus uteri ; uterine polyp COMPARISON: No relevant comparison available. TECHNIQUE: Transabdominal and transvaginal sonographic examination. FINDINGS: UTERUS: Within anterior uterine wall is a 1.5 x 1.4 x 1.3 cm hypoechoic slightly heterogeneous area suspected represent a leiomyoma. Uterus size: 8.0 x 3.8 x 4.3 cm ENDOMETRIUM: Normal homogeneous appearance. Endometrial thickness: 4 mm RIGHT OVARY: Normal size and appearance. Duplex Doppler demonstrates normal waveform and flow; resistive index 0.4. Ovary size: 2.8 x 2.0 x 2.8 cm LEFT OVARY: Not seen. No suspicious adnexal findings. CUL-DE-SAC: Unremarkable. No significant free fluid. BLADDER: Unremarkable. OTHER: None. IMPRESSION: 1. Anterior uterine wall myometrial leiomyoma. No prior studies for comparison. 2. No appreciable polyp within the endometrial cavity. Electronically authenticated by: AGUSTIN CANO Date: 2022-08-27 07:34 Normal [facility] XR DEXA BONE DENSITYon 08-26 XR DEXA BONE DENSITY EXAMINATION: XR DEXA BONE DENSITY, 08/26/2022 3:43 PM EDT HISTORY: Menopause present COMPARISON: DEXA bone densitometry 01/21/2020 TECHNIQUE: Dual-energy X-ray absorptiometry (DEXA) bone density study performed for the axial skeleton. FINDINGS: SPINE ANALYSIS: Average bone mineral density is 1.450 g/cm2. T-score (standard deviation relative to young adult mean): 2.1 . -3.0% change since prior study. HIP ANALYSIS: Lowest bone mineral density is within the right femoral neck, 1.110 g/cm2. T-score (standard deviation relative to young adult mean): 0.5 . -3.8% change since prior study. IMPRESSION: [employer] Classification: Normal - Low Fracture Risk Electronically authenticated by: AGUSTIN CANO Date: 2022-08-26 16:16 Normal [facility] PAP ACOG PANEL 2: 30 to 65on 08-10-2022 . . Normal [facility] Comment on above: Result Comment: Perf ormed at: WB Performed By: #### 4 [id number] #### [facility] [address] [place] [address] Dr. Beth Alanis Age Gdln ACOG Testing 30-65 Normal [facility] Comment on above: Performed By: #### 4 [id number] #### [facility] [address] [place] [address] [address] Beth Alanis DIAGNOSIS: Comment Normal [facility] Comment on above: Result Comment: NEGA TIVE FOR INTRAEPITHELIAL LESION OR MALIGNANCY. Performed at: WB Performed By: #### 4 [id number] #### [facility] [address] [place] [address] [address] Beth Alanis HPV Aptima Negative Normal Negative [facility] Comment on above: Result Comment: This nucleic acid amplification test detects fourteen high-risk HPV types (16,18,31,33,35,39,45,51,52,56,58,59,66,68) without differentiation. Performed at: =G Performed By: #### 4 [id number] #### [facility] [address] [place] [address] [address] Beth Alanis HPV Genotype Reflex Comment Normal [facility] Comment on above: Result Comment: Crit eria not met, HPV Genotype not performed. Performed at: WB Performed By: #### 4 [id number] #### [facility] [address] [place] [address] Dr. Beth Alanis Methodology: Comment Normal [facility] Comment on above: Result Comment: This liquid based ThinPrep(R) pap test was screened with the use of an image guided system. Performed at: WB Performed By: #### 4 [id number] #### [facility] [address] [place] [address] [address] Beth Alanis Note: Comment Normal [facility] Comment on above: Result Comment: The Pap smear is a screening test designed to aid in the detection of premalignant and malignant conditions of the uterine cervix. It is not a diagnostic procedure and should not be used as the sole means of detecting cervical cancer. Both false-positive and false-negative reports do occur. . Performed at: WB Performed By: #### 4 [id number] #### [facility] [address] [place] [address] Dr. Beth Alanis Performed by: Comment Normal [facility] Comment on above: Result Comment: Evelyn Ayala, Civil Designer (ASCP) Performed at: WB Performed By: #### 4 [id number] #### [facility] [address] [place] [address] Dr. Beth Alanis Specimen adequacy: Comment Normal [facility] Comment on above: Result Comment: Sati sfactory for evaluation. Endocervical and/or squamous metaplastic cells (endocervical component) are present. Performed at: WB Performed By: #### 4 [id number] #### [facility] [address] [place] [address] [address] Beth Alanis Covid-19 PCR ([facility])on 06-26 SARS-CoV-2 (COVID-19) RNA ANITA+probe Ql (Unsp spec) Not detected Normal NOT DETECTED [facility] Comment on above: Result Comment: This test is not yet approved or cleared by the [place] FDA. When there are no FDA-approved or cleared tests available, and other criteria are met, FDA can make tests available under an emergency access mechanism called an Emergency Use Authorization (EUA). The EUA for this test is supported by the Bankruptcy Judge of Health and Human Service's (HHS's) declaration that circumstances exist to justify the emergency use of in vitro diagnostics for the detection and/or diagnosis of the virus that causes COVID-19. This EUA will remain in effect (meaning this test can be used) for the duration of the COVID-19 declaration justifying emergency of IVDs, unless it is terminated or revoked by FDA (after which the test may no longer be used). When diagnostic testing is negative, the possibility of a false negative should be considered in the context of a patient's recent exposures and the presence of clinical signs and symptoms consistent with SARS-CoV-2. Performed By: #### B SANDWICH ARTIST, BMP, HSTROPN #### [facility] [address] [place] [address] Dr. Beth Alanis INFLUENZA A AND B AGon 07-14 [facility] SEE BELOW Normal [facility] Comment on above: Result Comment: Nega tive for Flu A protein angiten. Infection due to Flu A cannot be ruled out. Flu A angiten in the sample may be below the detection limit of the test. Performed By: #### I NFLUAB #### [facility] [address] [place] [address] Dr. [facility] Normal [facility] Comment on above: Result Comment: Nega tive for Flu B protein antigen. Infection due to Flu B cannot be ruled out. Flu B antigen in the sample may be below the detection limit of the test. Performed By: #### I NFLUAB #### [facility] [address] [place] [address] Dr. Beth Alanis INFLUENZA A AG Negative Normal NEGATIVE SEE COMMENT [facility] Comment on above: Performed By: #### I NFLUAB #### [facility] [address] [place] [address] Dr. Beth Alanis INFLUENZA B AG Negative Normal NEGATIVE SEE COMMENT [facility] Comment on above: Performed By: #### I NFLUAB #### [facility] [address] [place] [address] Dr. Beth Alanis SYMPTOMATIC COVID-19 ANTIGEN on 07-14-2022 EUA Statement SEE BELOW Normal [facility] Comment on above: Result Comment: This test has not been FDA cleared or approved, but has been authorized by the FDA under an Emergency Use Authorization (EUA) for use by authorized laboratories certified under CLIA that meet the requirements to perform moderate or high complexity testing. This test has been authorized only for the detection of proteins from SARS-CoV-2, not for any other viruses or pathogens. The emergency use of this test is authorized for the duration of the declaration that circumstances exist justifying the authorization of emergency use of in vitro diagnostic tests for detection and/or diagnosis of Covid-19 under section 564(b)(1) of the Act, 21 U.S.C. 360bbb-3(b)(1), unless the declaration is terminated or authorization is revoked sooner. Performed By: #### B SANDWICH ARTISTCHARI, HSTROPN #### [facility] [address] [place] [address] Dr. Beth Alanis SARS-CoV-2 (COVID-19) RNA AINTA+probe Ql (Unsp spec) Negative Normal NEGATIVE [facility] Comment on above: Performed By: #### B CHARI URIAS, HSTROPN #### [facility] [address] [place] [address] Dr. Beth Alanis XR CHEST 1 Von 07-14-2022 XR CHEST 1 V EXAM: Chest x-ray HISTORY: . COUGH . COMPARISON: 10/23/2021 TECHNIQUE: Single view of the chest. FINDINGS: Heart and vascularity are unremarkable. Lungs are free of focal infiltrates. Grossly no bony abnormality is appreciated. Impression: No acute heart or lung disease identified. Electronically authenticated by: MELLISSA PRIEST Date: 2022-07-14 11:13 Normal [facility] XR shoulder RT min 2V*on XR shoulder RT min 2V* [facility] Main [place] [id number] XRay Report Signed Patient: Shailesh Blake MR#: [id number] : 1970 Acct:[id number] Age/Sex: 51 / F ADM Date: 07/08/22 Loc: XD Room: Type: [facility] Attending Dr: Asif Cox MD Copies to: Asif Cox MD Ordering Provider: Asif Cox MD Date of Service: 07/08/22 XR/XR shoulder RT min 2V*: Right shoulder pain 3 views rightshoulder HISTORY:Right shoulder pain COMPARISON:None ACUTE FINDINGS:None DEGENERATIVE CHANGE:Minor degenerative changes. SOFT TISSUE FINDINGS:Unremarkable JOINT EFFUSION:None POSTOP CHANGES:None BONY MINERALIZATION:[place] te XR/XR shoulder RT min 2V* IMPRESSION:Minor degeneration. Impression dictated by: Benito Blake M.D.07/08/2022 1:10 PM Dictation Location: [place] [address] Transcribed By: [facility] 07/08/22 1310 Dictated By: Benito Blake DO 07/08/22 1307 Signed By: 07/08/22 1310 Normal [facility] VAGINITIS/VAGINOSIS DNA PROB Pablo 05-22-2022 Rosie species Negative Normal Negative [facility] Comment on above: Performed By: #### V AGINT #### [facility] [address] [place] [address] Dr. Beth Alanis Gardnerella vaginalis Negative Normal Negative [facility] Comment on above: Performed By: #### V AGINT #### [facility] [address] [place] [address] [address] Beth Alanis Trichomonas vaginalis Negative Normal Negative [facility] Comment on above: Performed By: #### V AGINT #### [facility] [address] [place] [address] [address] Beth Alanis LIPID PROFILEon 03-18-2022 CHOL-HDL RATIO NORM SEE BELOW Normal [facility] Comment on above: Result Comment: 3.3 - 4.4 LOW RISK 4.4 - 7.1 AVERAGE RISK 7.1 - 11.0 MODERATE RISK >11.0 HIGH RISK Performed By: #### 4 [id number] #### [facility] [address] [place] [address] [address] Beth Alanis Cholesterol [Mass/Vol] 183 mg/dL Normal <=200 [facility] Comment on above: Performed By: #### 4 [id number] #### [facility] [address] [place] [address] [address] Beth Alanis Cholesterol in HDL [Mass/Vol] 56 mg/dL Normal 40-60 [facility] Comment on above: Performed By: #### 4 [id number] #### [facility] [address] [place] [address] [address] Beth Alanis Cholesterol in LDL [Mass/Vol] 106.8 mg/dL Normal [facility] Comment on above: Performed By: #### 4 [id number] #### [facility] [address] [place] [address] [address] Beth Alanis Cholesterol.total/C holesterol in HDL [Mass ratio] 3.3 {ratio} Normal [facility] Comment on above: Performed By: #### 4 [id number] #### [facility] [address] [place] [address] [address] Beth Alanis HDL NORMAL > or = 60 mg/dl - LO W CARDIOVASCULAR RISK <40 mg/dl - HIGH CARDIOVASCULAR RISK Normal [facility] Comment on above: Performed By: #### 4 [id number] #### [facility] [address] [place] [address] [address] Beth Alanis LDL CALC NORMAL SEE BELOW Normal [facility] Comment on above: Result Comment: <100 mg/dl OPTIMAL 100 - 129 mg/dl NEAR OR ABOVE OPTIMAL 130 - 159 mg/dl BORDERLINE HIGH 160 - 189 mg/dl HIGH >190 mg/dl VERY HIGH Performed By: #### 4 [id number] #### [facility] [address] [place] [address] Dr. Beth Alanis Triglyceride [Mass/Vol] 101 mg/dL Normal <=150 [facility] Comment on above: Performed By: #### 4 [id number] #### [facility] [address] [place] [address] Dr. Beth Alanis VLDL CALC 20.2 mg/dL Normal [facility] Comment on above: Performed By: #### 4 [id number] #### [facility] [address] [place] [address] Dr. Beth Alanis PROF 14(COMP METB)on 022 Albumin [Mass/Vol] 3.8 g/dL Normal 3.4-5.0 [facility] Comment on above: Performed By: #### 4 [id number] #### [facility] [address] [place] [address] Dr. Beth Alanis Albumin/Globulin [Mass ratio] 0.8 {ratio} Normal [facility] Comment on above: Performed By: #### 4 [id number] #### [facility] [address] [place] [address] Dr. Beth Alanis ALP [Catalytic activity/Vol] 108 U/L Normal 46-116 [facility] Comment on above: Performed By: #### 4 [id number] #### [facility] [address] [place] [address] Dr. Beth Alanis ALT [Catalytic activity/Vol] 28 U/L Normal 14-59 [facility] Comment on above: Performed By: #### 4 [id number] #### [facility] [address] [place] [address] Dr. Beth Alanis Anion gap [Moles/Vol] 10.3 mmol/L Normal [facility] Comment on above: Performed By: #### 4 [id number] #### [facility] [address] [place] [address] Dr. Beth Alanis AST [Catalytic activity/Vol] 18 U/L Normal 15-37 [facility] Comment on above: Performed By: #### 4 [id number] #### [facility] [address] [place] [address] Dr. Beth Alanis Bilirubin [Mass/Vol] 0.7 mg/dL Normal 0.2-1.0 [facility] Comment on above: Performed By: #### 4 [id number] #### [facility] [address] [place] [address] Dr. Beth Alanis Calcium [Mass/Vol] 9.5 mg/dL Normal 8.5-10.1 [facility] Comment on above: Performed By: #### 4 [id number] #### [facility] [address] [place] [address] [address] Beth Alanis Chloride [Moles/Vol] 102 mmol/L Normal 98-107 [facility] Comment on above: Performed By: #### 4 [id number] #### [facility] [address] [place] [address] [address] Beth Alanis CO2 [Moles/Vol] 27.6 mmol/L Normal 21.0-32.0 [facility] Comment on above: Performed By: #### 4 [id number] #### [facility] [address] [place] [address] [address] Beth Alanis Creatinine [Mass/Vol] 0.93 mg/dL Normal 0.55-1.02 [facility] Comment on above: Performed By: #### 4 [id number] #### [facility] [address] [place] [address] Dr. Beth Alanis EGFR-AF BHUTANESE >60 Normal >=60 [facility] Comment on above: Performed By: #### 4 [id number] #### [facility] [address] [place] [address] [address] Beth Alanis EGFR-NON AF BHUTANESE >60 Normal >=60 [facility] Comment on above: Performed By: #### 4 [id number] #### [facility] [address] [place] [address] Dr. Beth Alanis Globulin (S) [Mass/Vol] 5.0 g/dL Normal [facility] Comment on above: Performed By: #### 4 [id number] #### [facility] [address] [place] [address] [address] Beth Alanis Glucose [Mass/Vol] 108 mg/dL Critically high 74-106 [facility] Comment on above: Performed By: #### 4 [id number] #### [facility] [address] [place] [address] [address] Beth Alanis Potassium [Moles/Vol] 3.9 mmol/L Normal 3.5-5.1 [facility] Comment on above: Performed By: #### 4 [id number] #### [facility] [address] [place] [address] [address] Beth Alanis Protein [Mass/Vol] 8.8 g/dL Critically high 6.4-8.2 [facility] Comment on above: Performed By: #### 4 [id number] #### [facility] [address] [place] [address] [address] Beth Alanis Sodium [Moles/Vol] 136 mmol/L Normal 136-145 [facility] Comment on above: Performed By: #### 4 [id number] #### [facility] [address] [place] [address] [address] Beth Alanis Urea nitrogen [Mass/Vol] 17.0 mg/dL Normal 7.0-18.0 [facility] Comment on above: Performed By: #### 4 [id number] #### [facility] [address] [place] [address] [address] Beth Alanis Urea nitrogen/Creatinine [Mass ratio] 18.3 mg/mg Normal [facility] Comment on above: Performed By: #### 4 [id number] #### [facility] [address] [address] [address] Beth Alanis MG MAMM SCREEN 3D LUCINDA CADon 11-22-2021 MG MAMM SCREEN 3D LUCINDA CAD Patient: HSAILESH BLAKE Exam Date: 11/22/2021 : 1970 Gender:F Ordering : DR MARTI JEREZ . Admission #: [id number] Family : Order #: [id number] CLICK HERE TO VIEW EXAM RADIOLOGY REPORT PROCEDURE: MAMMOGRAM SCREENING 3D BILATERAL CAD COMPARISON: MG MAMM SCREEN LUCINDA W CAD, 11/17/2019. MG MAMM LUCINDA SCRN W CAD DIG, 11/16/2012. INDICATIONS: Screening for malignant neoplasm of breast Calculator Name NCI Breast Cancer Risk Assessment Tool 5 Year Breast Cancer Risk 1.00% Lifetime Breast Cancer Risk 8.70% Personal Breast Cancer No Personal Ovarian Cancer No Treatments None Family Cancers None LOCATION: [facility] BREAST COMPOSITION: Heterogeneously dense,which may obscure small masses. FINDINGS: DIAGNOSTIC CATEGORY 1--NEGATIVE. RIGHT BREAST: No significant suspicious finding. No significant change has occurred. LEFT BREAST: No significant suspicious finding. No significant change has occurred. RECOMMENDATIONS: ROUTINE MAMMOGRAM AND CLINICAL EVALUATION IN 12 MONTHS. PLEASE NOTE: A NORMAL MAMMOGRAM DOES NOT EXCLUDE THE POSSIBILITY OF BREAST CANCER. A CLINICALLY SUSPICIOUS PALPABLE LUMP SHOULD BE BIOPSIED. Dictated by: Agustin Cano M.D. on 11/22/2021 at 15:45 Approved by: Agustin Cano M.D. on 11/22/2021 at 15:52 Normal [facility] GLUCOSE BLOODon 11-21-2021 Glucose [Mass/Vol] 110 mg/dL Critically high 74-106 [facility] Comment on above: Performed By: #### 4 [id number] #### [facility] [address] [place] [address] Dr. Beth Alanis LIPID PROFILEon 11-21-2021 CHOL-HDL RATIO NORM SEE BELOW Normal [facility] Comment on above: Result Comment: 3.3 - 4.4 LOW RISK 4.4 - 7.1 AVERAGE RISK 7.1 - 11.0 MODERATE RISK >11.0 HIGH RISK Performed By: #### 4 [id number] #### [facility] [address] [place] [address] Dr. Beth Alanis Cholesterol [Mass/Vol] 258 mg/dL Critically high <=200 [facility] Comment on above: Performed By: #### 4 [id number] #### [facility] [address] [place] [address] Dr. Beth Alanis Cholesterol in HDL [Mass/Vol] 34 mg/dL Critically low 40-60 [facility] Comment on above: Performed By: #### 4 [id number] #### [facility] [address] [address] [address] Beth Alanis Cholesterol in LDL [Mass/Vol] 161.4 mg/dL Normal [facility] Comment on above: Performed By: #### 4 [id number] #### [facility] [address] [address] [address] Beth Alanis Cholesterol.total/C holesterol in HDL [Mass ratio] 7.6 {ratio} Normal [facility] Comment on above: Performed By: #### 4 [id number] #### [facility] [address] [place] [address] Dr. Beth Alanis HDL NORMAL > or = 60 mg/dl - LO W CARDIOVASCULAR RISK <40 mg/dl - HIGH CARDIOVASCULAR RISK Normal [facility] Comment on above: Performed By: #### [id number] #### [facility] [address] [place] [address] Dr. Beth Alanis LDL CALC NORMAL SEE BELOW Normal [facility] Comment on above: Result Comment: <100 mg/dl OPTIMAL 100 - 129 mg/dl NEAR OR ABOVE OPTIMAL 130 - 159 mg/dl BORDERLINE HIGH 160 - 189 mg/dl HIGH >190 mg/dl VERY HIGH Performed By: #### [id number] #### [facility] [address] [place] [address] Dr. Beth Alanis Triglyceride [Mass/Vol] 313 mg/dL Critically high <=150 [facility] Comment on above: Performed By: #### [id number] #### [facility] [address] [place] [address] Dr. Beth Alanis VLDL CALC 62.6 mg/dL Normal [facility] Comment on above: Performed By: #### 4 [id number] #### [facility] [address] [place] [address] Dr. Beth Alanis BNPon 10-23-2021 Natriuretic peptide B (Bld) [Mass/Vol] 15.0 pg/mL Normal <=900.0 [facility] Comment on above: Performed By: #### B SANDWICH ARTIST, BMP, HSTROPN #### [facility] [address] [place] [address] Dr. Beth Alanis CBC AUTO DIFFon 10-23-2021 BASO # 0.1 103/ul Normal 0.0-0.1 [facility] Comment on above: Performed By: #### B SANDWICH ARTIST, BMP, HSTROPN #### [facility] [address] [place] [address] Dr. Beth Alanis Basophils/100 WBC (Bld) 0.6 % Normal 0.2-2.0 [facility] Comment on above: Performed By: #### B SANDWICH ARTIST, BMP, HSTROPN #### [facility] [address] [place] [address] Dr. Beth Alanis EO # 0.1 103/ul Normal 0.0-0.7 [facility] Comment on above: Performed By: #### B SANDWICH ARTIST, BMP, HSTROPN #### [facility] [address] [place] [address] Dr. Beth Alanis Eosinophils/100 WBC (Bld) 1.8 % Normal 0.9-7.0 [facility] Comment on above: Performed By: #### B SANDWICH ARTIST, BMP, HSTROPN #### [facility] [address] [place] [address] Dr. Beth Alanis Erythrocyte distribution width (RBC) [Ratio] 13.6 % Normal 11.0-15.0 [facility] Comment on above: Performed By: #### B SANDWICH ARTIST, BMP, HSTROPN #### [facility] [address] [place] [address] Dr. Beth Alanis Hematocrit (Bld) [Volume fraction] 46.6 % Normal 36.0-48.0 [facility] Comment on above: Performed By: #### B SANDWICH ARTIST, BMP, HSTROPN #### [facility] [address] [place] [address] Dr. Beth Alanis Hemoglobin (Bld) [Mass/Vol] 15.1 g/dL Normal 12.0-16.0 [facility] Comment on above: Performed By: #### B SANDWICH ARTIST, BMP, HSTROPN #### [facility] [address] [place] [address] Dr. Beth Alanis IG # 0.02 10e3/ul Normal 0.00-0.03 [facility] Comment on above: Performed By: #### B SANDWICH ARTIST, BMP, HSTROPN #### [facility] [address] [place] [address] Dr. Beth Alanis IG % 0.3 % Normal 0.0-0.5 [facility] Comment on above: Performed By: #### B SANDWICH ARTIST, BMP, HSTROPN #### [facility] [address] [place] [address] Dr. Beth Alanis LYMPH # 1.9 103/ul Normal 1.2-3.8 [facility] Comment on above: Performed By: #### B SANDWICH ARTIST, BMP, HSTROPN #### [facility] [address] [place] [address] Dr. Beth Alanis Lymphocytes/100 WBC (Bld) 23.9 % Normal 20.5-60.0 [facility] Comment on above: Performed By: #### B SANDWICH ARTIST, BMP, HSTROPN #### [facility] [address] [place] [address] Dr. Beth Alanis MANUAL DIFF REQ NO Normal [facility] Comment on above: Performed By: #### B SANDWICH ARTIST, BMP, HSTROPN #### [facility] [address] [place] [address] Dr. Beth Alanis MCH (RBC) [Entitic mass] 29.8 pg Normal 26.7-34.0 [facility] Comment on above: Performed By: #### B SANDWICH ARTIST, BMP, HSTROPN #### [facility] [address] [place] [address] Dr. Beth Alanis MCHC (RBC) [Mass/Vol] 32.4 g/dL Normal 29.9-35.2 [facility] Comment on above: Performed By: #### B SANDWICH ARTIST, BMP, HSTROPN #### [facility] [address] [place] [address] Dr. Beth Alanis MCV (RBC) [Entitic vol] 91.9 fL Normal 81.0-99.0 [facility] Comment on above: Performed By: #### B SANDWICH ARTIST, BMP, HSTROPN #### [facility] [address] [place] [address] Dr. Beth Alanis MONO # 0.6 103/ul Normal 0.3-0.8 [facility] Comment on above: Performed By: #### B SANDWICH ARTIST, BMP, HSTROPN #### [facility] [address] [place] [address] Dr. Beth Alanis Monocytes/100 WBC (Bld) 7.7 % Normal 1.7-12.0 [facility] Comment on above: Performed By: #### B SANDWICH ARTIST, BMP, HSTROPN #### [facility] [address] [place] [address] Dr. Beth Alanis NEUT # 5.1 103/ul Normal 1.4-6.5 [facility] Comment on above: Performed By: #### B SANDWICH ARTIST, BMP, HSTROPN #### [facility] [address] [place] [address] Dr. Beth Alanis Neutrophils/100 WBC (Bld) 65.7 % Normal 43.0-75.0 [facility] Comment on above: Performed By: #### B SANDWICH ARTIST, BMP, HSTROPN #### [facility] [address] [place] [address] Dr. Beth Alanis Platelet mean volume (Bld) [Entitic vol] 9.6 fL Normal 9.5-13.5 [facility] Comment on above: Performed By: #### B SANDWICH ARTIST, BMP, HSTROPN #### [facility] [address] [place] [address] Dr. Beth Alanis PLT 324 103/ul Normal 150-450 [facility] Comment on above: Performed By: #### B SANDWICH ARTIST, BMP, HSTROPN #### [facility] [address] [place] [address] Dr. Beth Alanis RBC 5.07 106/ul Normal 4.20-5.40 [facility] Comment on above: Performed By: #### B SANDWICH ARTIST, BMP, HSTROPN #### [facility] [address] [place] [address] Dr. Beth Alanis WBC 7.8 103/ul Normal 4.0-11.0 [facility] Comment on above: Performed By: #### B SANDWICH ARTIST, BMP, HSTROPN #### [facility] [address] [place] [address] Dr. Beth Alanis PROF CHEM 8 (BAS METB)on Anion gap [Moles/Vol] 6.7 mmol/L Normal [facility] Comment on above: Performed By: #### B SANDWICH ARTIST, BMP, HSTROPN #### [facility] [address] [address] [address] Beth Alanis Calcium [Mass/Vol] 9.3 mg/dL Normal 8.5-10.1 [facility] Comment on above: Performed By: #### B SANDWICH ARTIST, BMP, HSTROPN #### [facility] [address] [address] [address] Beth Alanis Chloride [Moles/Vol] 104 mmol/L Normal 98-107 [facility] Comment on above: Performed By: #### B SANDWICH ARTIST, BMP, HSTROPN #### [facility] [address] [address] [address] Beth Alanis CO2 [Moles/Vol] 31.3 mmol/L Normal 21.0-32.0 [facility] Comment on above: Performed By: #### B SANDWICH ARTIST, BMP, HSTROPN #### [facility] [address] [place] [address] Dr. Beth Alanis Creatinine [Mass/Vol] 0.98 mg/dL Normal 0.55-1.02 [facility] Comment on above: Performed By: #### B SANDWICH ARTIST, BMP, HSTROPN #### [facility] [address] [address] [address] Beth Alanis EGFR-AF BHUTANESE >60 Normal >=60 [facility] Comment on above: Performed By: #### B SANDWICH ARTIST, BMP, HSTROPN #### [facility] [address] [place] [address] Dr. Beth Alanis EGFR-NON AF BHUTANESE =60 Normal >=60 [facility] Comment on above: Performed By: #### B SANDWICH ARTIST, BMP, HSTROPN #### [facility] [address] [address] [address] Beth Alanis Glucose [Mass/Vol] 104 mg/dL Normal 74-106 [facility] Comment on above: Performed By: #### B SANDWICH ARTIST, BMP, HSTROPN #### [facility] [address] [address] [address] Beth Alanis Potassium [Moles/Vol] 4.0 mmol/L Normal 3.5-5.1 [facility] Comment on above: Performed By: #### B SANDWICH ARTIST, BMP, HSTROPN #### [facility] [address] [address] [address] Beth Alanis Sodium [Moles/Vol] 138 mmol/L Normal 136-145 [facility] Comment on above: Performed By: #### B SANDWICH ARTIST, BMP, HSTROPN #### [facility] [address] [address] [address] Beth Alanis Urea nitrogen [Mass/Vol] 12.0 mg/dL Normal 7.0-18.0 [facility] Comment on above: Performed By: #### B SANDWICH ARTIST, BMP, HSTROPN #### [facility] [address] [place] [address] Dr. Beth Alanis Urea nitrogen/Creatinine [Mass ratio] 12.2 mg/mg Normal [facility] Comment on above: Performed By: #### B SANDWICH ARTIST, BMP, HSTROPN #### [facility] [address] [place] [address] Dr. Beth Alanis TROPONIN, HIGH SENSITIVITYon 10-23-2021 HSTROP 5.6 pg/mL Normal 4.0-51.3 [facility] Comment on above: Result Comment: CUT- OFF POINTS HAVE BEEN ESTABLISHED BASED ON THE FOURTH UNIVERSAL DEFINITIONS OF MYOCARDIAL INFARCTION. THE UPPER REFERENCE LIMIT (URL) OF TROPONIN, DEFINED THE 99TH PERCENTILE OF cTnI DISTRIBUTION IN A REFERENCE POPULATION, HAS BEEN CONFIRMED THE DECISION THRESHOLD FOR SD DIAGNOSIS. Performed By: #### B SANDWICH ARTIST, BMP, HSTROPN #### [facility] [address] [place] [address] Dr. Beth Alanis XR CHEST 1 Von 10-23-2021 XR CHEST 1 V EXAMINATION:XR CHEST 1 V INDICATION:CHEST PAIN, UNSPECIFIED COMPARISON:07/02/2019 TECHNIQUE:A single frontal view of the chest is submitted. FINDINGS: The cardiomediastinal silhouette is not enlarged. The pulmonary vascularity is within normal limits. The lungs are clear based on chest radiography. There is no costophrenic angle blunting. IMPRESSION: Unremarkable plain film examination of the chest. Electronically authenticated by: CHELY KEITH Date: 2021-10-23 16:45 Normal [facility] INSULINon 09-05-2021 Insulin 26.0 uIU/mL Critically high 2.6-24.9 [facility] Comment on above: Performed By: #### 4 [id number] #### [facility] [address] [place] [address] Dr. Beth Alanis OCC BLD IMMUNO SCREENon 08-26 OCCULT BLOOD Negative Normal NEGATIVE [facility] Comment on above: Performed By: #### O BSCRN #### [facility] [address] [place] [address] Dr. Beth Alanis CBC AUTO DIFFon 09-04-2021 BASO # 0.0 103/ul Normal 0.0-0.1 [facility] Comment on above: Performed By: #### C BC #### [facility] [address] [place] [address] Dr. Beth Alanis Basophils/100 WBC (Bld) 0.4 % Normal 0.2-2.0 [facility] Comment on above: Performed By: #### C BC #### [facility] [address] [place] [address] Dr. Beth Alanis EO # 0.1 103/ul Normal 0.0-0.7 [facility] Comment on above: Performed By: #### C BC #### [facility] [address] [place] [address] Dr. Beth Alanis Eosinophils/100 WBC (Bld) 1.2 % Normal 0.9-7.0 [facility] Comment on above: Performed By: #### C BC #### [facility] [address] [place] [address] Dr. Beth Alanis Erythrocyte distribution width (RBC) [Ratio] 14.1 % Normal 11.0-15.0 [facility] Comment on above: Performed By: #### C BC #### [facility] [address] [place] [address] Dr. Beth Alanis Hematocrit (Bld) [Volume fraction] 44.1 % Normal 36.0-48.0 [facility] Comment on above: Performed By: #### C BC #### [facility] [address] [place] [address] Dr. Beth Alanis Hemoglobin (Bld) [Mass/Vol] 14.6 g/dL Normal 12.0-16.0 [facility] Comment on above: Performed By: #### C BC #### [facility] [address] [place] [address] Dr. Beth Alanis IG # 0.03 10e3/ul Normal 0.00-0.03 [facility] Comment on above: Performed By: #### C BC #### [facility] [address] [place] [address] Dr. Beth Alanis IG % 0.3 % Normal 0.0-0.5 [facility] Comment on above: Performed By: #### C BC #### [facility] [address] [place] [address] Dr. Beth Alanis LYMPH # 1.9 103/ul Normal 1.2-3.8 [facility] Comment on above: Performed By: #### C BC #### [facility] [address] [place] [address] Dr. Beth Alanis Lymphocytes/100 WBC (Bld) 17.8 % Critically low 20.5-60.0 [facility] Comment on above: Performed By: #### C BC #### [facility] [address] [place] [address] Dr. Beth Alanis MANUAL DIFF REQ NO Normal [facility] Comment on above: Performed By: #### C BC #### [facility] [address] [place] [address] Dr. Beth Alanis MCH (RBC) [Entitic mass] 30.3 pg Normal 26.7-34.0 [facility] Comment on above: Performed By: #### C BC #### [facility] [address] [place] [address] Dr. Beth Alanis MCHC (RBC) [Mass/Vol] 33.1 g/dL Normal 29.9-35.2 [facility] Comment on above: Performed By: #### C BC #### [facility] [address] [id number] [address] Beth Alanis MCV (RBC) [Entitic vol] 91.5 fL Normal 81.0-99.0 [facility] Comment on above: Performed By: #### C BC #### [facility] [address] [address] [address] Beth Alanis MONO # 0.9 103/ul Critically high 0.3-0.8 [facility] Comment on above: Performed By: #### C BC #### [facility] [address] [address] [address] Beth Alanis Monocytes/100 WBC (Bld) 8.9 % Normal 1.7-12.0 [facility] Comment on above: Performed By: #### C BC #### [facility] [address] [place] [address] Dr. Beth Alanis NEUT # 7.6 103/ul Critically high 1.4-6.5 [facility] Comment on above: Performed By: #### C BC #### [facility] [address] [place] [address] Dr. Beth Alanis Neutrophils/100 WBC (Bld) 71.4 % Normal 43.0-75.0 [facility] Comment on above: Performed By: #### C BC #### [facility] [address] [place] [address] Dr. Beth Alanis Platelet mean volume (Bld) [Entitic vol] 9.7 fL Normal 9.5-13.5 [facility] Comment on above: Performed By: #### C BC #### [facility] [address] [place] [address] Dr. Beth Alanis PLT 377 103/ul Normal 150-450 [facility] Comment on above: Performed By: #### C BC #### [facility] [address] [place] [address] Dr. Beth Alanis RBC 4.82 106/ul Normal 4.20-5.40 [facility] Comment on above: Performed By: #### C BC #### [facility] [address] [place] [address] Dr. Beth Alanis WBC 10.6 103/ul Normal 4.0-11.0 [facility] Comment on above: Performed By: #### C BC #### [facility] [address] [address] [address] Beth Alanis FREE THYROXINE INDEX T7on FTI 3.20 Normal 1.30-4.50 [facility] Comment on above: Performed By: #### C MP, T7, LIPID, TSH #### [facility] [address] [place] [address] Dr. Beth Alanis T3U 33.0 % Normal 30.0-39.0 [facility] Comment on above: Performed By: #### C MP, T7, LIPID, TSH #### [facility] [address] [place] [address] Dr. Beth Alanis T4 [Mass/Vol] 9.70 ug/dL Normal 4.80-13.90 [facility] Comment on above: Performed By: #### C MP, T7, LIPID, TSH #### [facility] [address] [place] [address] Dr. Beth Alanis GLYCOHEMOGLOBIN A1Con 2021 ADA RECOMMENDATION SEE BELOW Normal [facility] Comment on above: Result Comment: ADA RECOMMENDED LIMIT 4.0 - 6.0 ADA THERAPEUTIC TARGET < 7.0 ACTION SUGGESTED > 7.0 Performed By: #### [id number] #### [facility] [address] [place] [address] Dr. Beth Alanis Glucose [Mass/Vol] 114 mg/dL Normal [facility] Comment on above: Performed By: #### 4 [id number] #### [facility] [address] [place] [address] Dr. Beth Alanis HbA1c (Bld) [Mass fraction] 5.6 % Normal 4.5-6.2 [facility] Comment on above: Performed By: #### 4 [id number] #### [facility] [address] [place] [address] Dr. Beth Alanis IRONon 09-04-2021 Iron [Mass/Vol] 73.0 ug/dL Normal 50.0-170.0 [facility] Comment on above: Performed By: #### 4 [id number] #### [facility] [address] [address] [address] Beth Alanis LIPID PROFILEon 09-04-2021 CHOL-HDL RATIO NORM SEE BELOW Normal [facility] Comment on above: Result Comment: 3.3 - 4.4 LOW RISK 4.4 - 7.1 AVERAGE RISK 7.1 - 11.0 MODERATE RISK >11.0 HIGH RISK Performed By: #### 4 [id number] #### [facility] [address] [address] [address] Beth Alanis Cholesterol [Mass/Vol] 229 mg/dL Critically high <=200 [facility] Comment on above: Performed By: #### 4 [id number] #### [facility] [address] [address] [address] Beth Alanis Cholesterol in HDL [Mass/Vol] 49 mg/dL Normal 40-60 [facility] Comment on above: Performed By: #### 4 [id number] #### [facility] [address] [address] [address] Beth Alanis Cholesterol in LDL [Mass/Vol] 160.2 mg/dL Normal [facility] Comment on above: Performed By: #### 4 [id number] #### [facility] [address] [address] [address] Beth Alanis Cholesterol.total/C holesterol in HDL [Mass ratio] 4.7 {ratio} Normal [facility] Comment on above: Performed By: #### 4 [id number] #### [facility] [address] [address] [address] Beth Alanis HDL NORMAL > or = 60 mg/dl - LO W CARDIOVASCULAR RISK <40 mg/dl - HIGH CARDIOVASCULAR RISK Normal [facility] Comment on above: Performed By: #### 4 [id number] #### [facility] [address] [address] [address] Beth Alanis LDL CALC NORMAL SEE BELOW Normal [facility] Comment on above: Result Comment: <100 mg/dl OPTIMAL 100 - 129 mg/dl NEAR OR ABOVE OPTIMAL 130 - 159 mg/dl BORDERLINE HIGH 160 - 189 mg/dl HIGH >190 mg/dl VERY HIGH Performed By: #### 4 [id number] #### [facility] [address] [place] [address] Dr. Beth Alanis Triglyceride [Mass/Vol] 99 mg/dL Normal <=150 [facility] Comment on above: Performed By: #### 4 [id number] #### [facility] [address] [place] [address] Dr. Beth Alanis VLDL CALC 19.8 mg/dL Normal [facility] Comment on above: Performed By: #### 4 [id number] #### [facility] [address] [place] [address] Dr. Beth Alanis PROF 14(COMP METB)on 022 Albumin [Mass/Vol] 3.6 g/dL Normal 3.4-5.0 [facility] Comment on above: Performed By: #### 4 [id number] #### [facility] [address] [place] [address] Dr. Beth Alanis Albumin/Globulin [Mass ratio] 0.8 {ratio} Normal [facility] Comment on above: Performed By: #### 4 [id number] #### [facility] [address] [place] [address] Dr. Beth Alanis ALP [Catalytic activity/Vol] 107 U/L Normal 46-116 [facility] Comment on above: Performed By: #### 4 [id number] #### [facility] [address] [place] [address] Dr. Beth Alanis ALT [Catalytic activity/Vol] 31 U/L Normal 14-59 [facility] Comment on above: Performed By: #### 4 [id number] #### [facility] [address] [place] [address] Dr. Beth Alanis Anion gap [Moles/Vol] 14.4 mmol/L Normal [facility] Comment on above: Performed By: #### 4 [id number] #### [facility] [address] [place] [address] Dr. Beth Alanis AST [Catalytic activity/Vol] 11 U/L Critically low 15-37 [facility] Comment on above: Performed By: #### 4 [id number] #### [facility] [address] [place] [address] Dr. Beth Alanis Bilirubin [Mass/Vol] 0.4 mg/dL Normal 0.2-1.0 [facility] Comment on above: Performed By: #### 4 [id number] #### [facility] [address] [place] [address] Dr. Beth Alanis Calcium [Mass/Vol] 9.0 mg/dL Normal 8.5-10.1 [facility] Comment on above: Performed By: #### 4 [id number] #### [facility] [address] [place] [address] Dr. Beth Alanis Chloride [Moles/Vol] 103 mmol/L Normal 98-107 [facility] Comment on above: Performed By: #### 4 [id number] #### [facility] [address] [place] [address] Dr. Beth Alanis CO2 [Moles/Vol] 24.7 mmol/L Normal 21.0-32.0 [facility] Comment on above: Performed By: #### 4 [id number] #### [facility] [address] [place] [address] Dr. Beth Alanis Creatinine [Mass/Vol] 0.92 mg/dL Normal 0.55-1.02 [facility] Comment on above: Performed By: #### 4 [id number] #### [facility] [address] [place] [address] Dr. Beth Alanis EGFR-AF BHUTANESE >60 Normal >=60 [facility] Comment on above: Performed By: #### 4 [id number] #### [facility] [address] [place] [address] Dr. Beth Alanis EGFR-NON AF BHUTANESE >60 Normal >=60 [facility] Comment on above: Performed By: #### 4 [id number] #### [facility] [address] [place] [address] Dr. Beth Alanis Globulin (S) [Mass/Vol] 4.5 g/dL Normal [facility] Comment on above: Performed By: #### 4 [id number] #### [facility] [address] [place] [address] Dr. Beth Alanis Glucose [Mass/Vol] 100 mg/dL Normal 74-106 [facility] Comment on above: Performed By: #### 4 [id number] #### [facility] [address] [place] [address] Dr. Beth Alanis Potassium [Moles/Vol] 4.1 mmol/L Normal 3.5-5.1 [facility] Comment on above: Performed By: #### 4 [id number] #### [facility] [address] [place] [address] Dr. Beth Alanis Protein [Mass/Vol] 8.1 g/dL Normal 6.4-8.2 [facility] Comment on above: Performed By: #### 4 [id number] #### [facility] [address] [place] [address] Dr. Beth Alanis Sodium [Moles/Vol] 138 mmol/L Normal 136-145 [facility] Comment on above: Performed By: #### 4 [id number] #### [facility] [address] [place] [address] Dr. Beth Alanis Urea nitrogen [Mass/Vol] 27.0 mg/dL Critically high 7.0-18.0 [facility] Comment on above: Performed By: #### 4 [id number] #### [facility] [address] [place] [address] Dr. Beth Alanis Urea nitrogen/Creatinine [Mass ratio] 29.3 mg/mg Normal [facility] Comment on above: Performed By: #### 4 [id number] #### [facility] [address] [place] [address] Dr. Beth Alanis TSHon 09-04-2021 TSH 3.758 uIU/mL Critically high 0.358-3.740 [facility] Comment on above: Performed By: #### C MP, T7, LIPID, TSH #### [facility] [address] [place] [address] Dr. Beth Alanis TSH RANGE SEE BELOW Normal [facility] Comment on above: Result Comment: <0.3 4 UIU/ml HYPERTHYROID 0.34-5.60 UIU/ml EUTHYROID >5.60 UIU/ml HYPOTHYROID Performed By: #### C MP, T7, LIPID, TSH #### [facility] [address] [address] [address] Beth Alanis CTA HEART-CORONARY/ ARTERY B YPASS GRAFT WITH 3DPPon 04-26-2021 CTA HEART-CORONARY/ ARTERY BYPASS GRAFT WITH 3DPP [facility] Department of Radiology [address] [place] [address] Patient Name: SHAILESH BLAKE : 1970 Sex: F Age: Race: White Pt. Location: [facility] Patient Status: D Ordered Date: 03/19/2021 8:55:00 AM Completed Date: 04/26/2021 11:45 AM Requesting Provider: MELANIA ABARCA Attending Provider: MELANIA ABARCA Report Copy To: Signs & Symptoms: R94.39 Abnormal result of other cardiovascular function study History: Order in [facility] [phone] Is patient on meds for HTN or DM? no npo 4 hrs prior no caffeine 6 hrs prior Comments: Exam: CTA HEART-CORONARY/ ARTERY BYPASS GRAFT WITH 3DPP CTA HEART-CORONARY/ ARTERY BYPASS GRAFT WITH 3DPP 04/26/2021 11:45 AM SIGN AND SYMPTOMS: R94.39 Abnormal result of other cardiovascular function study TECHNOLOGIST COMMENTS: pt c/o shortness of breath and failed stress test QUESTIONS PER RADIOLOGIST: PROTOCOL: Axial CT angiography images were obtained with IV contrast. CONTRAST: Contrast: OMNIPAQUE 350 (LOCM), 100 milliliter, Intravenous TECHNIQUE: Multidetector CT angiogram was obtained using prospective ECG gating. Imaging was performed from the level of the clavicles to the level of the hemidiaphragms. In order to provide better evaluation of the anatomy and disease process, advanced off-line 3-D post-processing techniques, including ejection fraction calculation and curvilinear analysis of the coronary arteries were performed. Medication administered in preparation for the examination located in nursing documentation. COMPARISON: None. CORONARY ARTERY ANGIOGRAM FINDINGS: Stenoses are reported as maximum percentage diameter stenosis. Stenosis grading is reported using the following scheme: Normal: no stenosis Mild: 1-49% stenosis Moderate: 50-70% stenosis Severe: >70% stenosis Occluded Dominance of the coronary artery system: right with normal origins and course. Left Main: The left main is a normal caliber vessel which gives rise to the LAD and circumflex arteries The left main with no significant plaque. No evidence of stenosis Left Anterior Descending Artery: The proximal left anterior descending artery and first diagonal branch with no significant plaque. The mid-distal LAD, D2 and D3 branches with no significant plaque. There is no evidence of myocardial bridge. No significant stenosis. Left Circumflex Artery: The left circumflex artery and its obtuse marginal branches with no significant plaque. Right Coronary Artery: The right coronary artery and acute marginal branches with no significant plaque. No significant stenosis Cardiac Morphology: The right atrium is normal. The right ventricle is normal. The left atrium is normal. The left ventricle is normal. The pericardium is normal and there is no pericardial effusion. Cardiac Function: {reported only if retrospective ECG gating has been used} The calculated left ventricular ejection fraction is 62%, the left ventricular end-diastolic volume is 117 ml, and the left ventricular end-systolic volume is 44 ml. Stroke volume is 73 mL There is normal motion of the left ventricle. Cardiac Devices and Indwelling Central Venous Lines: No devices or lines are seen EXTRACARDIAC FINDINGS: Other lung findings: No focal consolidation or parenchymal abnormalities. Airway: Normal. Pleura: No pleural effusion, thickening, or pneumothorax. Thoracic aorta and great vessels: Normal in diameter. Pulmonary arteries: Normal. Heart and pericardium: Normal. Lymph nodes: No enlarged thoracic lymph nodes. Thoracic spine: Bony spurring suggesting mild thoracic spondylosis Chest wall: Normal. Visualized upper abdomen: Normal. IMPRESSION: 1. Normal coronary CTA without evidence for coronary artery stenosis.. 2. Normal global and regional wall motion and function of the LV. Normal ejection fraction of 62% 3. Mild thoracic spondylosis All CT scans at this facility use dose modulation, iterative reconstruction, and/or weight based dosing when appropriate to reduce radiation dose to as low as reasonably achievable Electronically signed: Corazon Carter. Transcribed by: [id number], User Resident: Electronically Signed by: CORAZON CARTER @ 04/30/2021 09:22 AM Normal [facility] Vital Signs Date Time Vital Sign Value Performing Clinician Facility 04-09-2023 10:30-0500 Body height 168.91 cm Destini Kilgore Other [facility] Other 04-09-2023 10:30-0500 Body mass index (BMI) [Ratio] 54.3 kg/m2 Destini Kilgore Other [facility] Other 04-09-2023 10:30-0500 Body weight 154.95 kg Destini Kilgore Other [facility] Other 04-09-2023 10:30-0500 Diastolic blood pressure 87 mm[Hg] Destini Kilgore Other [facility] Other 04-09-2023 10:30-0500 SaO2% (BldA) [Mass fraction] 97 % Destini Kilgore Other [facility] Other 04-09-2023 10:30-0500 Systolic blood pressure 123 mm[Hg] Destini Kilgore Other [facility] Other 01-23-2023 16:00-0400 Body height 168.91 cm Asif Cox Other [facility] Other 01-23-2023 16:00-0400 Body mass index (BMI) [Ratio] 53.25 kg/m2 Asif Cox Other [facility] Other 01-23-2023 16:00-0400 Body weight 151.96 kg Asif Cox Other [facility] Other 01-23-2023 16:00-0400 Diastolic blood pressure 90 mm[Hg] Asif Cox Other [facility] Other 01-23-2023 16:00-0400 SaO2% (BldA) [Mass fraction] 97 % Asif Cox Other [facility] Other 01-23-2023 16:00-0400 Systolic blood pressure 140 mm[Hg] Asif Cox Other [facility] Other 01-09-2023 10:30-0400 Body height 168.91 cm Destini Kilgore Other [facility] Other 01-09-2023 10:30-0400 Body mass index (BMI) [Ratio] 53.25 kg/m2 Destini Kilgore Other [facility] Other 01-09-2023 10:30-0400 Body weight 151.96 kg Destini Kilgore Other [facility] Other 01-09-2023 10:30-0400 Diastolic blood pressure 86 mm[Hg] Destini Kilgore Other [facility] Other 01-09-2023 10:30-0400 Systolic blood pressure 124 mm[Hg] Destini Kilgore Other [facility] Other 11-07-2022 13:15-0400 Body height 168.91 cm Asif Cox Other [facility] Other 11-07-2022 13:15-0400 Body mass index (BMI) [Ratio] 55.32 kg/m2 Asif Cox Other [facility] Other 11-07-2022 13:15-0400 Body weight 157.85 kg Asif Cox Other [facility] Other 11-07-2022 13:15-0400 SaO2% (BldA) [Mass fraction] 95 % Asif Cox Other [facility] Other 10-31-2022 16:00-0400 Body height 168.91 cm Asif Cox Other [facility] Other 10-31-2022 16:00-0400 Body mass index (BMI) [Ratio] 54.62 kg/m2 Asif Cox Other [facility] Other 10-31-2022 16:00-0400 Body weight 155.86 kg Asif Cox Other [facility] Other 10-31-2022 16:00-0400 Diastolic blood pressure 84 mm[Hg] Asif Cox Other [facility] Other 10-31-2022 16:00-0400 SaO2% (BldA) [Mass fraction] 97 % Asif Cox Other [facility] Other 10-31-2022 16:00-0400 Systolic blood pressure 126 mm[Hg] Asif Cox Other [facility] Other 08-07-2022 17:30-0400 Body height 168.91 cm Asif Cox Other [facility] Other 08-07-2022 17:30-0400 Body mass index (BMI) [Ratio] 54.53 kg/m2 Asif Cox Other [facility] Other 08-07-2022 17:30-0400 Body weight 155.58 kg Asif Cxo Other [facility] Other 08-07-2022 17:30-0400 Diastolic blood pressure 96 mm[Hg] Asif Cox Other [facility] Other 08-07-2022 17:30-0400 SaO2% (BldA) [Mass fraction] 99 % Asif Cox Other [facility] Other 08-07-2022 17:30-0400 Systolic blood pressure 142 mm[Hg] Asif Cox Other [facility] Other 07-24-2022 10:04-0400 Diastolic blood pressure 76 mm[Hg] SANDWICH ARTIST-C Alyssa Maxwell Work Phone: [facility] 07-24-2022 10:04-0400 Heart rate 74 /min SANDWICH ARTIST-C Alyssa Maxwell Work Phone: [facility] 07-24-2022 10:04-0400 Respiratory rate 18 /min SANDWICH ARTIST-C Alyssa Maxwell Work Phone: [facility] 07-24-2022 10:04-0400 SaO2% (BldA) [Mass fraction] 96 % SANDWICH ARTIST-C Alyssa Arreola Work Phone: [facility] 07-24-2022 10:04-0400 Systolic blood pressure 117 mm[Hg] SANDWICH ARTIST-C Alyssa Arreola Work Phone: [facility] 07-24-2022 09:23-0400 Inhaled oxygen flow rate 3 L/min SANDWICH ARTIST-C Alyssa Arreola Work Phone: [facility] 07-24-2022 08:46-0400 Body height 172.72 cm SANDWICH ARTIST-C Alyssa Arreola Work Phone: [facility] 07-24-2022 08:46-0400 Body weight 136.07 kg SANDWICH ARTIST-C Alyssa Arreola Work Phone: [facility] 07-08-2022 15:45-0400 Body height 168.91 cm Asif Cox Other [facility] Other 07-08-2022 15:45-0400 Body mass index (BMI) [Ratio] 56.59 kg/m2 Asif Cox Other [facility] Other 07-08-2022 15:45-0400 Body weight 161.48 kg Asif Cox Other [facility] Other 07-08-2022 15:45-0400 Diastolic blood pressure 80 mm[Hg] Asif Cox Other [facility] Other 07-08-2022 15:45-0400 SaO2% (BldA) [Mass fraction] 97 % Asif Cox Other [facility] Other 07-08-2022 15:45-0400 Systolic blood pressure 120 mm[Hg] Asif Cox Other [facility] Other 05-17-2022 10:15-0500 Body height 168.91 cm Asif Cox Other [facility] Other 05-17-2022 10:15-0500 Body mass index (BMI) [Ratio] 55.93 kg/m2 Asif Cox Other [facility] Other 05-17-2022 10:15-0500 Body weight 159.58 kg Asif Cox Other [facility] Other 05-17-2022 10:15-0500 Diastolic blood pressure 86 mm[Hg] Asif Cox Other [facility] Other 05-17-2022 10:15-0500 SaO2% (BldA) [Mass fraction] 96 % Asif Cox Other [facility] Other 05-17-2022 10:15-0500 Systolic blood pressure 132 mm[Hg] Asif Cox Other [facility] Other 04-05-2022 13:15-0500 Body height 168.91 cm Asif Cox Other [facility] Other 04-05-2022 13:15-0500 Body mass index (BMI) [Ratio] 55.64 kg/m2 Asif Cox Other [facility] Other 04-05-2022 13:15-0500 Body weight 158.76 kg Asif Cox Other [facility] Other 04-05-2022 13:15-0500 Diastolic blood pressure 80 mm[Hg] Asif Cox Other [facility] Other 04-05-2022 13:15-0500 SaO2% (BldA) [Mass fraction] 98 % Asif Cox Other [facility] Other 04-05-2022 13:15-0500 Systolic blood pressure 124 mm[Hg] Asif Brooke Other [facility] Other 02-07-2022 14:45-0400 Body height 168.91 cm Asif Cox Other [facility] Other 02-07-2022 14:45-0400 Body mass index (BMI) [Ratio] 55.48 kg/m2 Asif Cox Other [facility] Other 02-07-2022 14:45-0400 Body weight 158.31 kg Asif Cox Other [facility] Other 02-07-2022 14:45-0400 Diastolic blood pressure 80 mm[Hg] Asif Brooke Other [facility] Other 02-07-2022 14:45-0400 SaO2% (BldA) [Mass fraction] 94 % Asif Cox Other [facility] Other 02-07-2022 14:45-0400 Systolic blood pressure 126 mm[Hg] Asif Brooke Other [facility] Other 01-18-2022 13:15-0400 Body height 168.91 cm Asif Cox Other [facility] Other 01-18-2022 13:15-0400 Body mass index (BMI) [Ratio] 54.84 kg/m2 Asif Brooke Other [facility] Other 01-18-2022 13:15-0400 Body weight 156.49 kg Asif Cox Other [facility] Other 01-18-2022 13:15-0400 Diastolic blood pressure 98 mm[Hg] Asif Cox Other [facility] Other 01-18-2022 13:15-0400 SaO2% (BldA) [Mass fraction] 97 % Asif Cox Other [facility] Other 01-18-2022 13:15-0400 Systolic blood pressure 132 mm[Hg] Asif Cox Other [facility] Other 12-17-2021 11:45-0400 Body height 168.91 cm Asif Cox Other [facility] Other 12-17-2021 11:45-0400 Body mass index (BMI) [Ratio] 54.84 kg/m2 Asif Cox Other [facility] Other 12-17-2021 11:45-0400 Body weight 156.49 kg Asif Cox Other [facility] Other 12-17-2021 11:45-0400 Diastolic blood pressure 80 mm[Hg] Asif Cox Other [facility] Other 12-17-2021 11:45-0400 SaO2% (BldA) [Mass fraction] 97 % Asif Cox Other [facility] Other 12-17-2021 11:45-0400 Systolic blood pressure 110 mm[Hg] Asif Cox Other [facility] Other 10-15-2021 10:30-0400 Body height 168.91 cm Asif Cox Other [facility] Other 10-15-2021 10:30-0400 Body mass index (BMI) [Ratio] 54.3 kg/m2 Asif Cox Other [facility] Other 10-15-2021 10:30-0400 Body weight 154.95 kg Asif Cox Other [facility] Other 10-15-2021 10:30-0400 Diastolic blood pressure 70 mm[Hg] Asif Cox Other [facility] Other 10-15-2021 10:30-0400 SaO2% (BldA) [Mass fraction] 98 % Asif Cox Other [facility] Other 10-15-2021 10:30-0400 Systolic blood pressure 110 mm[Hg] Asif Cox Other [facility] Other 09-13-2021 10:45-0400 Body height 168.91 cm Destini Kilgore Other [facility] Other 09-13-2021 10:45-0400 Body mass index (BMI) [Ratio] 54.21 kg/m2 Destini Kilgore Other [facility] Other 09-13-2021 10:45-0400 Body weight 154.68 kg Destini Kilgore Other [facility] Other 09-13-2021 10:45-0400 Diastolic blood pressure 74 mm[Hg] Destini Kilgore Other [facility] Other 09-13-2021 10:45-0400 Systolic blood pressure 124 mm[Hg] Destini Kilgore Other [facility] Other 08-02-2021 15:30-0400 Body height 168.91 cm Asif Cox Other [facility] Other 08-02-2021 15:30-0400 Body mass index (BMI) [Ratio] 52.71 kg/m2 Asif Garciaky Other [facility] Other 08-02-2021 15:30-0400 Body weight 150.41 kg Asif Brooke Other [facility] Other 08-02-2021 15:30-0400 Diastolic blood pressure 82 mm[Hg] Asif Brooke Other [facility] Other 08-02-2021 15:30-0400 SaO2% (BldA) [Mass fraction] 97 % Asif Garciaky Other [facility] Other 08-02-2021 15:30-0400 Systolic blood pressure 134 mm[Hg] Asif Brooke Other [facility] Other 07-09-2021 16:00-0400 Body height 168.91 cm Asifjohn Cox Other [facility] Other 07-09-2021 16:00-0400 Diastolic blood pressure 80 mm[Hg] Asifjohn Cox Other [facility] Other 07-09-2021 16:00-0400 SaO2% (BldA) [Mass fraction] 99 % Asif Cox Other [facility] Other 07-09-2021 16:00-0400 Systolic blood pressure 130 mm[Hg] Asif Cox Other [facility] Other 07-04-2021 15:30-0500 Body height 168.91 cm Mellissa Strange Other [facility] Other 07-04-2021 15:30-0500 Body mass index (BMI) [Ratio] 52.78 kg/m2 Mellissa Strange Other [facility] Other 07-04-2021 15:30-0500 Body weight 150.6 kg Mellissa Strange Other [facility] Other 07-04-2021 15:30-0500 Diastolic blood pressure 96 mm[Hg] Mellissa Strange Other [facility] Other 07-04-2021 15:30-0500 Systolic blood pressure 137 mm[Hg] Mellissa Strange Other [facility] Other 06-07-2021 11:15-0500 Body height 168.91 cm Destini Kilgore Other [facility] Other 06-07-2021 11:15-0500 Body mass index (BMI) [Ratio] 52.48 kg/m2 Destini Kilgore Other [facility] Other 06-07-2021 11:15-0500 Body weight 149.73 kg Destini Kilgore Other [facility] Other 06-07-2021 11:15-0500 Respiratory rate 18 /min Destini Kilgore Other [facility] Other 04-30-2021 15:00-0500 Body height 168.91 cm Asif Cox Other [facility] Other 04-30-2021 15:00-0500 Body mass index (BMI) [Ratio] 51.98 kg/m2 Asif Brooke Other [facility] Other 04-30-2021 15:00-0500 Body weight 148.33 kg Asif Cox Other [facility] Other 04-30-2021 15:00-0500 Diastolic blood pressure 74 mm[Hg] Asif Brooke Other [facility] Other 04-30-2021 15:00-0500 Systolic blood pressure 116 mm[Hg] Asif Brooke Other [facility] Other 04-05-2021 17:00-0500 Body height 168.91 cm Asif Cox Other [facility] Other 04-05-2021 17:00-0500 Body mass index (BMI) [Ratio] 50.93 kg/m2 Asif Brooke Other [facility] Other 04-05-2021 17:00-0500 Body weight 145.33 kg Asif Brooke Other [facility] Other 03-19-2021 12:15-0500 Body height 168.91 cm Asif Cox Other [facility] Other 03-19-2021 12:15-0500 Body mass index (BMI) [Ratio] 49.92 kg/m2 Asif Cox Other [facility] Other 03-19-2021 12:15-0500 Body weight 142.43 kg Asif Cox Other [facility] Other 03-19-2021 12:15-0500 Diastolic blood pressure 80 mm[Hg] Asif Cox Other [facility] Other 03-19-2021 12:15-0500 Systolic blood pressure 120 mm[Hg] Asif Cox Other [facility] Other 02-26-2021 14:30-0400 Body height 168.91 cm Asif Cox Other [facility] Other 02-26-2021 14:30-0400 Body mass index (BMI) [Ratio] 50.84 kg/m2 Asif Cox Other [facility] Other 02-26-2021 14:30-0400 Body weight 145.06 kg Asif Cox Other [facility] Other 02-26-2021 14:30-0400 Diastolic blood pressure 70 mm[Hg] Asif Cox Other [facility] Other 02-26-2021 14:30-0400 SaO2% (BldA) [Mass fraction] 98 % Asif Cox Other [facility] Other 02-26-2021 14:30-0400 Systolic blood pressure 118 mm[Hg] Asif Cox Other [facility] Other Encounters Encounter Date Encounter Type Care Provider Facility Start: 05-28-2023 ambulatory WATSON Wilson ty:[facility] Start: 04-16-2023 End: 04-16-2023 ambulatory Asif Cox Other [facility] Other Start: 04-16-2023 Telephone encounter Asif Brooke [facility] Start: 04-09-2023 Office outpatient visit 25 minutes Destini Kilgore [facility] Start: 04-09-2023 End: 04-09-2023 ambulatory SANDWICH ARTIST-C Alyssa Arreola Work Phone: [facility] Work Phone: Start: 04-09-2023 End: 04-09-2023 Patient encounter procedure SANDWICH ARTIST-C Alyssa Arreola Work Phone: [facility] Work Phone: Start: 02-25-2023 ambulatory Alexey Butts acility:[facility] Start: 01-23-2023 End: 01-23-2023 ambulatory Asif Cox Other [facility] Other Start: 01-23-2023 Patient encounter procedure Asif Brooke [facility] Start: 01-09-2023 End: 01-09-2023 ambulatory Destini Kilgore Other [facility] Other Start: 01-09-2023 Office outpatient visit 25 minutes Destini Kilgore [facility] Start: 12-17-2022 End: 12-18-2022 ambulatory Dioni Flores Facility:[facility] [place] [facility] Start: 11-07-2022 End: 11-07-2022 ambulatory Asif Cox Other [facility] Other Start: 11-07-2022 Office outpatient visit 25 minutes Asif Brooke [facility] Start: 10-31-2022 End: 10-31-2022 ambulatory Asif Cox [facility] Other Start: 10-31-2022 Office outpatient visit 25 minutes Asif Cox [facility] Start: 10-08-2022 ambulatory WATSON CARDENAS Facility :[facility] Rahul Start: 08-26-2022 End: 08-27-[address] MARTI JEREZ . Facility:[facility] Start: 08-07-2022 End: 08-07-2022 ambulatory Asif Cox Other [facility] [employer] Other Start: 08-07-2022 Office outpatient visit 15 minutes Asif Cox [facility] Start: 08-05-2022 End: 08-05-[address] MARTI JEREZ . Facility:[facility] Start: 07-24-2022 (PROC) PROCEDURE Asif Cox [facility] Start: 07-24-2022 End: 07-24-2022 Admission to same day surgery center SANDWICH ARTIST-C Alyssa Arreola Work Phone: [facility] Work Phone: Start: 07-24-2022 End: 07-24-2022 ambulatory SANDWICH ARTIST-C Alyssa Arreola Work Phone: [facility] Work Phone: Start: 07-14-2022 End: 07-14-2022 ambulatory FRANNIE DIAB . Facility:[facility] Start: 07-08-2022 Office outpatient visit 25 minutes Asif Cox [facility] Start: 07-08-2022 End: 07-08-2022 ambulatory Asif Cox Facility:[facility] Start: 07-08-2022 End: 07-08-2022 ambulatory SANDWICH ARTIST-C Alyssa Lesly Maxwell Work Phone: [facility] Work Phone: Start: 07-08-2022 End: 07-08-2022 Patient encounter procedure SANDWICH ARTIST-C Alyssa Arreola Work Phone: [facility] Work Phone: Start: 05-20-2022 End: 05-20-[address] MARTI JEREZ . Facility:[facility] Start: 05-17-2022 End: 05-17-2022 ambulatory Asif Cox Other [facility] Other Start: 05-17-2022 Office outpatient visit 25 minutes Asif Brooke [facility] Start: 05-01-2022 End: 05-25-2022 ambulatory ASIF COX Facility:[facility] Start: 04-05-2022 Office outpatient visit 25 minutes Asif Brooke [facility] Start: 04-05-2022 End: 04-05-2022 ambulatory SANDWICH ARTIST-C Alyssa Arreola Work Phone: [facility] Other Start: 04-05-2022 End: 04-05-2022 Patient encounter procedure SANDWICH ARTIST-C Alyssa Arreola Work Phone: [facility] Start: 03-18-2022 End: 03-19-2022 ambulatory ALYSSA ARREOLA Facility:[facility] Start: 02-07-2022 End: 02-07-2022 ambulatory Asifjohn Cox Other [facility] Other Start: 02-07-2022 Patient encounter procedure Asifjohn Cox [facility] Start: 01-18-2022 End: 01-18-2022 ambulatory Asifjohn Cox Other [facility] Other Start: 01-18-2022 Office outpatient visit 25 minutes Asif Brooke [facility] [place] Start: 12-24-2021 End: 12-24-2021 Patient encounter procedure SANDWICH ARTIST-C Alyssa Arreola Work Phone: [facility] Start: 12-17-2021 End: 12-17-2021 ambulatory Asifjohn Cox Other [facility] Other Start: 12-17-2021 Office outpatient visit 25 minutes Asif Brooke [facility] Start: 11-26-2021 ambulatory ALYSSA ARREOLA Facility: [facility] Start: 11-22-2021 End: 11-23-[address] MARTI JEREZ . Facility:[facility] Start: 11-21-2021 End: 11-22-2021 ambulatory SUSIE ESTRADA Facility:[facility] Start: 10-23-2021 End: 10-23-[address] NUBIA WHYTE . Facility:[facility] Start: 10-16-2021 End: 11-23-2021 ambulatory ALYSSA ARREOLA Facility:[facility] Start: 10-15-2021 End: 10-15-2021 ambulatory Asif Brooke Other [facility] Other Start: 10-15-2021 Office outpatient visit 25 minutes Asif Garciaky [facility] Start: 10-15-2021 End: 10-15-2021 Patient encounter procedure SANDWICH ARTIST-C Alyssa Arreola Work Phone: [facility] Start: 10-12-[address] MARTI JEREZ . Facili ty:[facility] Start: 10-09-2021 End: 10-09-2021 Lab Drop off Virgilio Rhoades [facility] Start: 10-09-2021 End: 10-09-2021 Patient encounter procedure Cipriano Romero Jr. [facility] Rahul Start: 09-19-2021 End: 09-19-2021 ambulatory Destini Kilgore Other [facility] Other Start: 09-19-2021 Telephone encounter Destini Kilgore [facility] Start: 09-13-2021 End: 09-13-2021 ambulatory Destini Kilgore Other [facility] Other Start: 09-13-2021 Office outpatient visit 15 minutes Destini Kilgore [facility] Start: 09-06-2021 End: 09-06-2021 ambulatory ALYSSA ARREOLA Facility:[facility] Start: 09-04-2021 End: 09-05-2021 ambulatory ALYSSA ARREOLA Facility:[facility] Start: 08-15-2021 (Procedure) Short Asif Cox [facility] Start: 08-15-2021 End: 08-15-2021 ambulatory Asif Cox Other [facility] Other Start: 08-09-2021 End: 08-09-2021 Lab Drop off WATSON CARDENAS [facility] Start: 08-09-2021 End: 08-09-2021 Patient encounter procedure WATSON E THERESA [facility] Sue Start: 08-02-2021 End: 08-02-2021 ambulatory Asif Cox Other [facility] Other Start: 08-02-2021 Office outpatient visit 25 minutes Asif Cox [facility] Start: 07-09-2021 End: 07-09-2021 ambulatory Mellissa Strange Other [facility] Other Start: 07-09-2021 Office outpatient visit 25 minutes Asif Cox [facility] Start: 07-09-2021 Telephone encounter Mellissa Strange [facility] Start: 07-04-2021 End: 07-04-2021 ambulatory Mellissa Hykes Other [facility] Other Start: 07-04-2021 Office outpatient new 30 minutes Mellissa Hykes [facility] Start: 06-07-2021 End: 06-07-2021 ambulatory Destini Kilgore Other [facility] Other Start: 06-07-2021 Office outpatient visit 25 minutes Destini Kilgore [facility] Start: 05-08-2021 (Procedure) Short Asif Cox [facility] Start: 05-08-2021 End: 05-08-2021 ambulatory Asifjohn Cox Other [facility] Other Start: 04-30-2021 End: 04-30-2021 ambulatory Asifjohn Cox Other [facility] Other Start: 04-30-2021 Office outpatient visit 25 minutes Asif Brooke [facility] Start: 04-26-2021 End: 04-27-2021 ambulatory [facility] Facility:[facility] Start: 04-19-2021 (Procedure) Enzo Cox [facility] Start: 04-19-2021 End: 04-19-2021 ambulatory Asif Cox Other [facility] Other Start: 04-05-2021 End: 04-05-2021 ambulatory Asif Brooke Other [facility] Other Start: 04-05-2021 Office outpatient visit 25 minutes Asif Brooke [facility] Start: 03-29-2021 (Procedure) Short Asif Cox [facility] Start: 03-29-2021 End: 03-29-2021 ambulatory Asif Cox Other [facility] Other Start: 03-19-2021 End: 03-19-2021 ambulatory Asif Brooke Other [facility] Other Start: 03-19-2021 Office outpatient visit 25 minutes Asif Brooke [facility] Start: 03-07-2021 (Procedure) Short Asif Cox [facility] Start: 03-07-2021 End: 03-07-2021 ambulatory Asif Brooke Other [facility] Other Start: 02-26-2021 End: 02-26-2021 ambulatory Asif Cox Other [facility] Other Start: 02-26-2021 Office outpatient visit 25 minutes Asif Cox [facility] Procedures Date Procedure Procedure Detail Performing Clinician Start: 04-09-2023 Plain X-ray of left hip SANDWICH ARTIST-C Alyssapollo Arreola Work Phone: Start: 07-24-2022 DH Nerve Radio Frequ ency (Bilateral) SANDWICH ARTIST-C Alyssapollo Mortensenmer Work Phone: Start: 07-08-2022 Plain X-ray of right shoulder SANDWICH ARTIST-C Alyssapollo Arreola Work Phone: Start: 04-05-2022 X-ray of cervical spine SANDWICH ARTIST-C Alyssa Arreola Work Phone: Start: 12-24-2021 MR thoracic spine wo con SANDWICH ARTIST-C Alyssa Arreola Work Phone: Start: 10-15-2021 Radiography of thora cic spine SANDWICH ARTIST-C Alyssapollo Mortensenmer Work Phone: Start: 02-20-2021 Cystoscopy WATSON Mims AILYN Start: 01-04-2020 Cystoscopy WATSON Mims ERRY Start: 06-02-2018 cysto/ botox WATSON Mims ERRY Start: 01-28-2017 cystoscopy WATSON Mims ERRY back surgery WATSON CARDENAS carpel tunnel release SAGE CARDENAS cesearian section WATSON Mims ERRY Cholecystectomy WATSON CALDERON D&C WATSON CARDENAS H/O: tubal ligation WATSON CARDENAS Plan of Treatment Date Care Activity Detail Author Start: 07-24-2022 [facility] Patient Education Brooke Non Diagnostic Blo ck [facility] Work Phone: Patient referral [facility] Work Phone: Immunizations Immunization Date Immunization Notes Care Provider Fa cility 2020 SARS-CoV-2 (COVID-19 ) mRNA BNT-162b2 vax WATSON CARDENAS [facility] 12-02-2020 SARS-CoV-2 (COVID-19 ) mRNA BNT-162b2 vax WATSON CARDENAS [facility] NEGATED: Highlighted row has not occurred!07-31-2020 influenza virus vaccine, unspecified formulation WATSON CARDENAS [facility] Hospital Payers Date Payer Category Payer Self-pay [id number] 2022 Medicaid [id number] [id number] 2022 Self-pay [id number] 1969 Unknown [id number] 2.16.8 40.1.517037.3.579.2.647 1969 Unknown [id number] 2.16.84 0.1.044667.3.579.2.593 1969 Unknown [id number] 2.16.84 0.1.503803.3.579.2.593 1969 Unknown [id number] 2.16.84 0.1.550159.3.579.2.593 1969 Unknown [id number] 2.16.84 0.1.280494.3.579.2.593 1969 Unknown [id number] 2.16.84 0.1.386802.3.579.2.593 1969 Unknown [id number] 2.16.84 0.1.086556.3.579.2.593 1969 Unknown [id number] 2.16.84 0.1.557111.3.579.2.593 1969 Unknown [id number] 2.16.84 0.1.280922.3.579.2.593 1969 Unknown [id number] 2.16.84 0.1.572872.3.579.2.593 1969 Unknown [id number] 2.16.84 0.1.474578.3.579.2.593 1969 Unknown [id number] 2.16.84 0.1.561530.3.579.2.593 1969 Unknown [id number] 2.16.84 0.1.559152.3.579.2.593 1969 Unknown [id number] 2.16.84 0.1.622368.3.579.2.593 1969 Unknown [id number] 2.16.84 0.1.212666.3.579.2.593 1969 Unknown [id number] 2.16.8 40.1.967892.3.579.2.727 1969 Unknown [id number] 2.16.8 40.1.914793.3.579.2.727 1959 Unknown [id number] Unknown [id number] 2.1 6.840.1.524220.19 Unknown [id number] 2.16.8 40.1.269009.3.579.2.531 Unknown [id number] 2.16.8 40.1.510581.3.579.2.531 Unknown [id number] 2.16.8 40.1.319508.3.579.2.531 Unknown [id number] 2.16.8 40.1.967869.3.579.2.531 Unknown [id number] 2.16.8 40.1.162700.3.579.2.531 Social History Date Type Detail Facility Start: 12-29-2020 Tobacco smoking status Never s moked tobacco (finding) [facility] [employer] Other Sex Assigned At Female [facility] [employer] Other Start: 08-29-2021 End: 07-24-2022 Tobacco smoking status MEIS Ex-smoker (finding) [facility] Start: 1970 Sex Assigned At Female F [facility] Goals Date Patient Goal Desired Activity /State Clinical Notes 03-19-2021 to 04-09-2023 Note Date & Type Note Facility 04-09-2023 Evaluation note Encounter Date Diagnosis Assessment Notes Mar, Myofascial muscle pain (ICD-10 - M79.18) Stable. Mar, Left hip pain (ICD-10 - M25.552) 52 year old female here for follow up and medication refill for chronic pain. She voices continued complaints of left hip pain with radiation to the groin and down the anterior aspect of the thigh to the knee. She notes losing her balance often but denies falls. She presents today with a cane. She is requesting a refill of Gabapentin. Different treatment options were discussed in detail with patient in regards to patients condition. We will prescribe a medrol sebastian to help with the acute exaccerbation of symptoms she is experiencing after deep cleaning her daughter's home x 3 days ago. I encouraged the patient to continue taking medications as prescribed and I will refill her Gabapentin as she feels this continues to provide an element of relief. I will also order a hip XR for further evaluation of her left hip pain. Mar, Fibromyalgia (ICD-10 - M79.7) Continue taking medications as prescribed. She notes some days when pain is more tolerable, she forgets to take 1-2 doses of her Gabapentin. She is encouraged to take this as prescribed. 13 Dec, 2023 Chronic pain (ICD-10 - G89.29) Patient has continued need for Gabapentin. [place] report processed and reviewed and shows no violations. Gabapentin was refilled today, pill count was done. Patient is compliant with opioid medication. The patient denies any medication related side effects. UDS performed through [email or web address] today, will await confirmatory results. [facility] Other 09-28-2023 Evaluation note* Encounter Date Diagnosis Assessment Notes Treatment Notes Treatment Clinical Notes Dec, Mid back pain (ICD-10 - M54.9) 52 year old female here for follow up to discuss chronic pain. She voices complaints of mid to low back pain. She also complains of bilateral knee pain. Different treatment options were discussed in detail with the patient, and I recommend we proceed with a trigger point injection to the bilateral lower thoracic paraspinal muscles under ultrasound guidance today in the office as scheduled. Risks and benefits of procedure explained to patient; patient verbalizes understanding. Dec, Myofascial muscle pain (ICD-10 - M79.18) Trigger injection to the bilateral lower thoracic muscles done today Dec, Fibromyalgia (ICD-10 - M79.7) Continue with medication management Dec, Chronic pain (ICD-10 - G89.29) Continue taking medications [facility] Other 09-14-2023 Evaluation note* Encounter Date Diagnosis Assessment Notes Treatment Notes Treatment Clinical Notes Dec, Mid back pain (ICD-10 - M54.9) 52 year old female here for follow up and medication refill for chronic pain. She voices complaints of mid to low back and right knee pain. She continues taking Gabapentin, however she feels this is not providing significant relief. I discussed different treatment options in detail with the patient. She feels medication is managing her pain and does not wish to proceed with injections at this time. She is encouraged to continue taking Gabapentin to help with pain. I will increase her Gabapentin to 400 mg 2-3 times daily. Dec, Myofascial muscle pain (ICD-10 - M79.18) We can consider trigger point injections to the thoracic paraspinal muscles under ultrasound guidance. Dec, Right knee pain (ICD-10 - M25.561) Continue Meloxicam as prescribed Dec, Chronic pain (ICD-10 - G89.29) Continue taking medications Dec, Fibromyalgia (ICD-10 - M79.7) Continue taking Gabapentin as prescribed. Gabapentin increased today to 400 mg, two to three times daily [facility] Other 07-13-2023 Evaluation note* Encounter Date Diagnosis Assessment Notes Treatment Notes Treatment Clinical Notes Oct, Mid back pain (ICD-10 - M54.9) 51 year old female here for follow up to discuss chronic pain. She voices continued complaints of mid back pain today. She also voices complaints of right knee pain. I independently reviewed recent imaging of the thoracic spine which shows no acute bony process. She is encouraged to continue using the TENS unit and Meloxicam and Gabapentin to help with pain. Oct, Myofascial muscle pain (ICD-10 - M79.18) If her pain persists, we can consider trigger point injections to the thoracic paraspinal muscles under ultrasound guidance. Oct, Right knee pain (ICD-10 - M25.561) Continue Meloxicam as prescribed Oct, Chronic pain (ICD-10 - G89.29) Patient is encouraged to call the office when she is close to needing a refill of Gabapentin [facility] Other 07-06-2023 Evaluation note* Encounter Date Diagnosis Assessment Notes Treatment Notes Treatment Clinical Notes Oct, Chronic pain (ICD-10 - G89.29) Stable, follow up in 1 week. Oct, Mid back pain (ICD-10 - M54.9) 51 year old female here for follow up to discuss chronic pain. She voices complaints of mid to low back pain with intermittent radiation down the anterior aspect of the right thigh to the knee. She also voices complaints of right knee pain secondary to a recent fall on Friday. She denies seeking medical attention after the fall. I will order updated imaging of the thoracic spine to rule out any acute injury. In the meantime I will refill her topical compound cream as needed. She is encouraged to use the TENS unit. I will add a short term supply of Diclofenac Sodium as needed. She is encouraged to follow up next week. Oct, Lumbosacral spondylosis without myelopathy (ICD-10 - M47.817) Stable. Oct, Sacroiliitis (ICD-10 - M46.1) Stable. [facility] Other 04-12-2023 Evaluation note* Encounter Date Diagnosis Assessment Notes Treatment Notes Treatment Clinical Notes Jul, Lumbosacral spondylosis without myelopathy (ICD-10 - M47.817) 51 year old female here for follow up status post lumbar facet medial branch radiofrequency ablation bilaterally at L2, L3, L4 as well as L5 for denervation of L3-4, L4-5, L5-S1 facet joints under fluoroscopic guidance. Patient reports 70-80% pain relief as well as improved walking, standing and daily functions following procedure. She voices complaints of residual mid to low back pain. I recommend she give the radiofrequency ablation more time to take its full effect. In the meantime she can continue her activities as tolerated. She is encouraged to follow up in 4 weeks. Jul, Chronic pain (ICD-10 - G89.29) Stable. Jul, Sacroiliitis (ICD-10 - M46.1) Follow up in 4 weeks [facility] Encounter Date Diagnosis Assessment Notes Treatment Notes Treatment Clinical Notes Jun, Cervical spondylosis (ICD-10 - M47.812) Pertinent imaging of the cervical spine was reviewed and discussed in detail with the patient which showed mild degenerative changes. She is encouraged to continue physical therapy exercises Jun, Lumbosacral spondylosis without myelopathy (ICD-10 - M47.817) 51 y/o female here for follow up. She voices complaints of neck and right shoulder pain. She states she completed all but 3 sessions of physical therapy and discontinued it because her neck was felling better. She also complains of low back pain. Anatomy of spine as well as different treatment options were discussed in detail with patient in regards to patients condition. I recommend we repeat the lumbar facet Jun, Chronic pain (ICD-10 - G89.29) Patient is encouraged to continue taking Gabapentin as prescribed. She states she has an extra bottle of Gabapentin at home, and is unsure of how much she has left at this time, she will check her medication bottles and call back to schedule her next appointment to refill this. Jun, Right shoulder pain (ICD-10 - M25.511) Proceed with updated imaging of the shoulder. [facility] Other 01-20-2023 Evaluation note* Encounter Date Diagnosis Assessment Notes Treatment Notes Treatment Clinical Notes Apr, Thoracic spondylosis (ICD-10 - M47.814) Stable. Apr, Cervical spondylosis (ICD-10 - M47.812) 51 year old female here for follow up to discuss chronic pain. She voices complaints of mid back and right shoulder pain today. She also complains of tightness of the neck. I independently reviewed her recent neck x-ray which shows facet arthropathy. I recommend she continue with physical therapy, if she fails to improve after physical therapy we can consider interventional treatment options. In the meantime I will order a right shoulder x-ray. She can continue using the topical compound cream as needed. She can also continue Gabapentin TID. I will add a TENS unit as needed to painful areas. Apr, Chronic pain (ICD-10 - G89.29) Patient is encouraged to continue taking Gabapentin as prescribed. She states she has an extra bottle of Gabapentin at home, and is unsure of how much she has left at this time, she will check her medication bottles and call back to schedule her next appointment to refill this. Apr, Right shoulder pain (ICD-10 - M25.511) Proceed with updated imaging of the shoulder. [facility] Other 12-09-2022 Evaluation note* Encounter Date Diagnosis Assessment Notes Treatment Notes Treatment Clinical Notes Mar, Thoracic spondylosis (ICD-10 - M47.814) 51 y/o female here for follow up. She voices complaints of mid to low back pain and right knee pain. She states her right knee is giving out. She also complains of increased migraine headaches. She feels pain can negatively impact her daily activities and sleeping pattern. She continues taking Gabapentin with relief and is requesting a refill of this today. In the future if the pain persists, we can consider thoracic facet MBB followed by RFA. She is encouraged to continue taking medications as prescribed and continue with conservative treatment options. I will refill her Gabapentin today as she feels this provides an element of relief. Mar, Cervical spondylosis (ICD-10 - M47.812) Proceed with updated imaging. In the future if the pain persists, we can consider cervical facet MBB followed by RFA, if applicable. Mar, Neck pain (ICD-10 - M54.2) I will order updated imaging of the cervical spine to further evaluate her pain. In the meantime, she is encouraged to start physical therapy for exercises and stretches to achieve the maximum ability to perform daily activities and movements while managing her pain. Mar, Chronic pain (ICD-10 - G89.29) Patient is encouraged to continue taking Gabapentin as prescribed. She states she has an extra bottle of Gabapentin at home, and is unsure of how much she has left at this time, she will check her medication bottles and call back to schedule her next appointment to refill this. [facility] Other 10-13-2022 Evaluation note* Encounter Date Diagnosis Assessment Notes Treatment Notes Treatment Clinical Notes Jan, Myofascial pain (ICD-10 - M79.18) 51 year old female here for follow up to discuss chronic pain. She continues to complain of mid back pain. She feels pain can negatively impact her daily activities. Different treatment options were discussed in detail with the patient. We will proceed with steroid injections to bilateral lower thoracic paraspinal muscles under ultrasound guidance in the office today as discussed. Risks and benefits of procedure explained to patient; patient verbalizes understanding. Jan, Mid back pain (ICD-10 - M54.9) Proceed with trigger point injection to bilateral thoracic paraspinal muscles, as previously discussed Jan, Chronic pain (ICD-10 - G89.29) Patient is encouraged to continue taking Gabapentin as prescribed. She states she has an extra bottle of Gabapentin at home, and is unsure of how much she has left at this time, she will check her medication bottles and call back to schedule her next appointment to refill this. Jan, Lumbosacral spondylosis without myelopathy (ICD-10 - M47.817) Stable. Continue with current treatment plan. [facility] Other 09-23-2022 Evaluation note* Encounter Date Diagnosis Assessment Notes Treatment Notes Treatment Clinical Notes Dec, Thoracic spondylosis (ICD-10 - M47.814) 51 year old female here for follow up and medication refill for chronic pain. She voices continued complaints of mid back pain. She also voices complaints of daily headaches. I independently reviewed her recent thoracic spine MRI which shows evidence of some facet arthropathy. Discussed with patient different treatment options, I recommend starting with a trigger point injection to the thoracic area. In the meantime I will order a TENS unit as needed to painful areas. Dec, Lumbosacral spondylosis without myelopathy (ICD-10 - M47.817) Stable. Continue with current treatment plan. Dec, Chronic pain (ICD-10 - G89.29) Continue taking Gabapentin as prescribed. [facility] Other 08-22-2022 Evaluation note* Encounter Date Diagnosis Assessment Notes Treatment Notes Treatment Clinical Notes Nov, Thoracic spondylosis (ICD-10 - M47.814) 50 year old female here for follow up for chronic pain. She voices complaints of mid back pain. She states she has completed physical therapy and reports minimal relief. She feels pain can negatively impact her daily activities and sleeping pattern. I independently reviewed x-ray of the thoracic spine and agree with radiology interpretation. Anatomy of spine as well as different treatment options were discussed in detail with patient in regards to patients condition. I recommend she proceed with an MRI of the thoracic spine for further evaluation of her pain. In the meantime, she can continue taking Gabapentin as prescribed. Nov, Lumbosacral spondylosis without myelopathy (ICD-10 - M47.817) Stable. Continue with current treatment plan. Nov, Chronic pain (ICD-10 - G89.29) Continue taking Gabapentin as prescribed. [facility] Other 06-20-2022 Evaluation note* Encounter Date Diagnosis Assessment Notes Treatment Notes Treatment Clinical Notes Sep, Arthritis of sacroiliac joint (ICD-10 - M47.818) 50 year old female here for follow up status post bilateral sacral lateral branch radiofrequency ablation at S1, S2, S3 using bipolar radiofrequency ablation under fluroroscopic guidance. Patient reports 80-90% pain relief in the area treated, as well as improved walking, standing and daily functions following procedure. She voices complaints of residual low back pain. She feels her pain is worse at night. She continues taking Gabapentin with relief and is requesting a refill of this today. Patient's low back pain appears to have significantly improved. She is encouraged to continue daily activities as tolerated. She is also encouraged to continue taking medications as prescribed and I will refill her Gabapentin as she feels this provides some element of relief. I will also prescribe a muscle relaxer to take for pain relief. Sep, Lumbosacral spondylosis without myelopathy (ICD-10 - M47.817) Stable. She feels lumbar pain is tolerable at this time. Sep, Chronic pain (ICD-10 - G89.29) Continue taking medications as prescribed. Sep, Mid back pain (ICD-10 - M54.9) Regarding her complaints of mid back pain, I encouraged the patient to start physical therapy for muscle strengthening and ROM exercises. In the meantime, I will order updated imaging of the thoracic spine. I will also order a topical compound cream to use as tolerated for pain relief. [facility] Other 06-14-2022 Evaluation + Plan note Diagnostic Tests Pending * Urine Culture 10/09/21 [facility]05-19-2022 Evaluation note* Encounter Date Diagnosis Assessment Notes Treatment Notes Treatment Clinical Notes August, Arthritis of sacroiliac joint (ICD-10 - M47.818) 50 year old female here for follow up status post right sacral lateral branch radiofrequency ablation at S1, S2, S3 using bipolar radiofrequency ablation under fluroroscopic guidance. Patient reports 50% pain relief as well as improved walking, standing and daily functions following procedure. She voices complaints of residual low back pain today. She continues taking Gabapentin with relief and is requesting a refill of this today. I discussed different treatment options with the patient and I recommend that she give the procedure more time as it can take up to 6 weeks for maximum relief. In the meantime, she is encouraged to use ice/heat or topical creams as tolerated for pain. I will also refill her Gabapentin as she feels this provides an element of relief. August, Sacroiliitis (ICD-10 - M46.1) Proceed with current treatment plan August, Lumbosacral spondylosis without myelopathy (ICD-10 - M47.817) Stable. She feels lumbar pain is tolerable at this time. August, Chronic pain (ICD-10 - G89.29) [facility] Other [id number] Evaluation + Plan note Diagnostic Tests Pending * Urine Culture 08/09/21 [facility]04-14-2022 Hospital Discharge instructions Patient Education 08/09/2021 11:27:41 Overactive Bladder, Adult Overactive Bladder, Adult Overactive bladder refers to a condition in which a person has a sudden need to pass urine. The person may leak urine if he or she cannot get to the bathroom fast enough (urinary incontinence). A person with this condition may also wake up several times in the night to go to the bathroom. Overactive bladder is associated with poor nerve signals between your bladder and your brain. Your bladder may get the signal to empty before it is full. You may also have very sensitive muscles thatmake your bladder squeeze too soon. These symptoms might interfere with daily work or social activities. What are the causes? This condition may be associated with or caused by: Urinary tract infection. Infection of nearby tissues, such as the prostate. Prostate enlargement. Surgery on the uterus or urethra. Bladder stones, inflammation, or tumors. Drinking too much caffeine or alcohol. Certain medicines, especially medicines that get rid of extra fluid in the body (diuretics). Muscle or nerve weakness, especially from: ?A spinal cord injury. ?Stroke. ?Multiple sclerosis. ?Parkinson's disease. Diabetes. Constipation. What increases the risk? You may be at greater risk for overactive bladder if you: Are an older adult. Smoke. Are going through menopause. Have prostate problems. Have a neurological disease, such as stroke, dementia, Parkinson's disease, or multiple sclerosis (MS). Eat or drink things that irritate the bladder. These include alcohol, spicy food, and caffeine. Are overweight or obese. What are the signs or symptoms? Symptoms of this condition include: Sudden, strong urge to urinate. Leaking urine. Urinating 8 or more times a day. Waking up to urinate 2 or more times a night. How is this diagnosed? Your health care provider may suspect overactive bladder based on your symptoms. He or she will diagnose this condition by: A physical exam and medical history. Blood or urine tests. You might need bladder or urine tests to help determine what is causing your overactive bladder. You might also need to see a health care provider who specializes in urinary tract problems (urologist). How is this treated? Treatment for overactive bladder depends on the cause of your condition and whether it is mild or severe. You can also make lifestyle changes at home. Options include: Bladder training. This may include: ?Learning to control the urge to urinate by following a schedule that directs you to urinate at regular intervals (timed voiding). ?Doing Kegel exercises to strengthen your pelvic floor muscles, which support your bladder. Toning these muscles can help you control urination, even if your bladder muscles are overactive. Special devices. This may include: ?Biofeedback, which uses sensors to help you become aware of your body's signals. ?Electrical stimulation, which uses electrodes placed inside the body (implanted) or outside the body. These electrodes send gentle pulses of electricity to strengthen the nerves or muscles that control the bladder. ?Women may use a plastic device that fits into the vagina and supports the bladder (pessary). Medicines. ?Antibiotics to treat bladder infection. ?Antispasmodics to stop the bladder from releasing urine at the wrong time. ?Tricyclic antidepressants to relax bladder muscles. ?Injections of botulinum toxin type A directly into the bladder tissue to relax bladder muscles. Lifestyle changes. This may include: ?Weight loss. Talk to your health care provider about weight loss methods that would work best for you. ?Diet changes. This may include reducing how much alcohol and caffeine you consume, or drinking fluids at different times of the day. ?Not smoking. Do not use any products that contain nicotine or tobacco, such as cigarettes and e-cigarettes. If you need help quitting, ask your health care provider. Surgery. ?A device may be implanted to help manage the nerve signals that control urination. ?An electrode may be implanted to stimulate electrical signals in the bladder. ?A procedure may be done to change the shape of the bladder. This is done only in very severe cases. Follow these instructions at home: Lifestyle Make any diet or lifestyle changes that are recommended by your health care provider. These may include: ?Drinking less fluid or drinking fluids at different times of the day. ?Cutting down on caffeine or alcohol. ?Doing Kegel exercises. ?Losing weight if needed. ?Eating a healthy and balanced diet to prevent constipation. This may include: ?Eating foods that are high in fiber, such as fresh fruits and vegetables, whole grains, and beans. ?Limiting foods that are high in fat and processed sugars, such as fried and sweet foods. General instructions Take [id number] and prescription medicines only as told by your health care provider. If you were prescribed an antibiotic medicine, take it as told by your health care provider. Do notstop taking the antibiotic even if you start to feel better. Use any implants or pessary as told by your health care provider. If needed, wear pads to absorb urine leakage. Keep a journal or log to track how much and when you drink and when you feel the need to urinate. This will help your health care provider monitor your condition. Keep all follow-up visits as told by your health care provider. This is important. Contact a health care provider if: You have a fever. Your symptoms do not get better with treatment. Your pain and discomfort get worse. You have more frequent urges to urinate. Get help right away if: You are not able to control your bladder. Summary Overactive bladder refers to a condition in which a person has a sudden need to pass urine. Several conditions may lead to an overactive bladder. Treatment for overactive bladder depends on the cause and severity of your condition. Follow your health care provider's instructions about lifestyle changes, doing Kegel exercises, keeping a journal, and taking medicines. This information is not intended to replace advice given to you by your health care provider. Make sure you discuss any questions you have with your health care provider. Document Released: 02/08/2010 Document Revised: 08/05/2019 Document Reviewed: 04/30/2018 [employer] Patient Education 2020 [employer] Follow Up Care 07/11/2021 12:59:04 With:WATSON CARDENAS PA-C, URL Address: [address] [place] [address] [phone] When: Unknown [facility] 04-07-2022 Evaluation note* Encounter Date Diagnosis Assessment Notes Treatment Notes Treatment Clinical Notes Jul, Arthritis of sacroiliac joint (ICD-10 - M47.818) 50 year old female here for follow up status post bilateral sacral lateral branch nerve block at S1, S2 and S3 as well as L5 dorsal ramus under fluoroscopic guidance. Patient reports 80% pain relief as well as improved walking, standing and daily functions for 6 hours following procedure. She voices continued complaints of low back pain with radiation down the outer aspect of bilateral thighs to the knee. She also voices complaints of mid back and neck pain. Anatomy of spine discussed in detail with patient in regards to patients condition. Patient is a candidate for a right followed by left sacral lateral RFA under fluoroscopic guidance. Risks and benefits of procedure explained to patient; patient verbalizes understanding. In the meantime, I will prescribe Gabapentin 300mg TID to help with the pain Jul, Sacroiliitis (ICD-10 - M46.1) Proceed with current treatment plan Jul, Lumbosacral spondylosis without myelopathy (ICD-10 - M47.817) Stable. Patient reports 70% pain relief following procedure. She feels lumbar pain is tolerable at this time. Jul, Chronic pain (ICD-10 - G89.29) [facility] Other 03-14-2022 Evaluation note* Encounter Date Diagnosis Assessment Notes Treatment Notes Treatment Clinical Notes Jun, Left knee pain (ICD-10 - M25.562) 50 year old female here for follow up for chronic pain. She voices continued complaints of left knee pain. She also complains of low back pain. She feels pain is negatively impacting her daily activities and sleeping pattern. Different treatment options were discussed with the patient in detail. I recommend that we proceed with a left knee steroid injection under ultrasound guidance in the office today, as previously discussed. Jun, Arthritis of sacroiliac joint (ICD-10 - M47.818) In regards to her complaints of low back pain, I recommend we proceed with a bilateral sacral lateral branch nerve block under fluoroscopic guidance. Risks and benefits of procedure explained to patient; patient verbalizes understanding. Jun, Sacroiliitis (ICD-10 - M46.1) Proceed with sacral lateral branch nerve block. Jun, Lumbosacral spondylosis without myelopathy (ICD-10 - M47.817) Continue with current treatment plan. Jun, Chronic pain (ICD-10 - G89.29) Continue medications as prescribed [facility] Other 03-09-2022 Evaluation note* Encounter Date Diagnosis Assessment Notes Treatment Notes Treatment Clinical Notes Jun, GERD (gastroesophageal reflux disease) (ICD-10 - K21.9) Jun, Irritable bowel syndrome with constipation (ICD-10 - K58.1) Jun, Morbid obesity (ICD-10 - E66.01) [facility] Other 02-10-2022 Evaluation note* Encounter Date Diagnosis Assessment Notes Treatment Notes Treatment Clinical Notes May, Lumbosacral spondylosis without myelopathy (ICD-10 - M47.817) 50 year old female here for follow up status post lumbar facet medial branch radiofrequecncy ablation bilaterally at L2, L3, L4 as well as L5 dorsal ramus for denervation of L3-4, L4-5, L5-S1 facet joints under fluoroscopic guidance. Patient reports 50% pain relief and improved walking, standing and daily functions following procedure. She voices complaints of residual low back pain, denying radicular symptoms. She feels she over does it at times taking care of her mother. She denies any procedure related complications. She also voices complaints of left knee pain. She is fearful of taking OTC NSAIDS as Aspirin causes tremors. She notes some relief of her pain while sitting down. I discussed different treatment options with the patient and I recommend that she give the procedure more time as it can take up to 6 weeks for maximum relief. In the meantime, she is encouraged to use ice/heat or topical creams as tolerated for pain. May, Left knee pain (ICD-10 - M25.562) If her pain persists or worsens, we can consider repeating the left knee steroid injection in the future, as she feels this provided her with 70% pain relief in the past. In the meantime, she is encouraged to use RICE therapy and OTC Voltaren topical gel for pain relief as needed. Patient has used Diclofenac topical with good relief in the past and no AEs. May, Sacroiliitis (ICD-10 - M46.1) Stable. Continue with current treatment plan. May, Chronic pain (ICD-10 - G89.29) Continue medications as prescribed [facility] Other 12-09-2021 Evaluation note* Encounter Date Diagnosis Assessment Notes Treatment Notes Treatment Clinical Notes Mar, Lumbosacral spondylosis without myelopathy (ICD-10 - M47.817) 50 year old female here for follow up status post lumbar facet medial branch nerve block bilaterally at the L2, L3 and L4 levels, as well as the L5 dorsal ramus under fluoroscopic guidance. Patient reports 70-80% pain relief and increased function for 5-6 hours following procedure. She voices contined complaints of low back pain, denying radicular symptoms. Anatomy of spine discussed in detail with patient in regards to patients condition. Patient is a candidate to proceed with a second bilateral lumbar facet medial branch nerve block under fluoroscopic guidance. Risks and benefits of procedure explained to patient; patient verbalizes understanding. Mar, Sacroiliitis (ICD-10 - M46.1) Stable. Continue with current treatment plan. Mar, Chronic pain (ICD-10 - G89.29) Continue medications as prescribed [facility] Other 11-22-2021 Evaluation note* Encounter Date Diagnosis Assessment Notes Treatment Notes Treatment Clinical Notes Feb, Lumbosacral spondylosis without myelopathy (ICD-10 - M47.817) 50 year old female here for follow up status post bilateral sacroiliac joint injection under fluoroscopic guidance. Patient reports 50% pain relief and increased function following procedure. She voices continued complaints of low back pain, slightly higher than previous injection site. Anatomy of spine discussed in detail with patient in regards to patients condition. Patient is a candidate for a bilateral lumbar facet medial branch nerve block under fluoroscopic guidance. Risks and benefits of procedure explained to patient; patient verbalizes understanding. Feb, Sacroiliitis (ICD-10 - M46.1) Stable. Patient reports 50% pain relief and increased function following procedure Feb, Neck pain (ICD-10 - M54.2) Patient is encouraged to continue physical therapy as scheduled. She is also encouraged to proceed with Xray of the cervical spine as previously ordered Feb, Chronic pain (ICD-10 - G89.29) Continue medications as prescribed [facility] Other Evaluation + Plan note No data available for this section [facility] [place] Evaluation noteNort [place] Other Evaluation noteNo InformationNort [place]n Other Evaluation noteNort [place] Other Evaluation noteNo assessment information available [facility] Work Phone: [facility] Narrative - [facility] Other [facility] general Narrative - Reported* Type Description Date Medical History MORBID OBESITY Medical History MIGRAINE HEADACHES Medical History DEPRESSION Medical History OBSTRUCTIVE SLEEP APNEA Medical History 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 Medical History STRESS INCONTINENCE Medical History DYSLIPIDEMIA Medical History FIBROMYALGIA Surgical History CHOLECYSTECTOMY Surgical History RIGHT SHOULDER ARTHROSCOPY Surgical History RIGHT CARPAL TUNNEL RELEASE Surgical History X2 Surgical History D&C OF UTERUS Surgical History ENDOMETRIAL ABLATION Surgical History WISDOM TEETH [facility] Other [facility] general Narrative - [email or web address] Other Hiswtke general Narrative - [email or web address] Other [facility] general Narrative - Reported* Type Description Date Medical History MORBID OBESITY Medical History MIGRAINE HEADACHES Medical History DEPRESSION Medical History OBSTRUCTIVE SLEEP APNEA Medical History 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 Medical History STRESS INCONTINENCE Medical History DYSLIPIDEMIA Medical History FIBROMYALGIA Surgical History CHOLECYSTECTOMY Surgical History RIGHT SHOULDER ARTHROSCOPY Surgical History RIGHT CARPAL TUNNEL RELEASE Surgical History X2 Surgical History D&C OF UTERUS Surgical History ENDOMETRIAL ABLATION Surgical History WISDOM TEETH Hospitalization History see above [facility] Other Hospital Discharge instructions No data available for this section [facility] No data available for this section [facility] Summary Purpose Family History No Family History Records Found Relationship Condition Age at Onset Recorded Date/T susan father Malignant neoplasm of prostate Unknown brother Schizophrenia Unknown Not Specified Dementia Unknown Advance Directives No Advanced Directives Records Found Advance Directive Response Recorded Date/ Time Advance Directives No November 06 2:31pm Advance Directive Response Recorded Date/ Time Advance Directives No November 06 1:31pm Chief Complaint and Reason for Visit Chief Complaint M54.9 M47.814 Chief Complaint M54.2 Chief Complaint m25.511 Chief Complaint m25.511 Back Pain Chief Complaint m25.552 Additional Source Comments INFORMATION SOURCE (unrecogn ized section and content) DATE CREATED AUTHOR 05/03/2021 [facility] DATE CREATED AUTHOR AUTHOR'S ORGANIZ ATION 08/30/2022 [facility] DATE CREATED AUTHOR AUTHOR'S ORGANIZ ATION 04/24/2023 [facility] DATE CREATED AUTHOR AUTHOR'S ORGANIZ ATION 05/07/2023 [facility] Care Team (unrecognized sect ion and content) Team Status: Active Member Role Status Dates Alyssa Arreola NP-C Primary Care Provider Active Team Status: Inactive Member Role Status Dates Alyssa Arreola NP-Jess Primary Care Provider Active Asif Cox MD Attending Provider Active Team Status: Inactive Member Role Status Dates Alyssa Arreola NP-Jess Primary Care Provider Active Destini Kilgore NP Attending Provider Active REASON FOR VISIT (unrecogniz ed section and content) BILATERAL SACROILIAC JOIN T INJECTIONF/U AFTER LUCINDA SILUCINDA LUMBAR FACET MEDIAL BRANCH NERVE BLOCK L2-3, L3-4, L4-5/ELFOLLOW UP AFTER LUCINDA LUMBAR MBBRIGHT L2- 3, L3-4, L4-5 LUMBAR FACET RFA2 WEEK F/U AFTER LUCINDA LUMBAR FACET RFAmedicationPATIENT HERE AT THE REQUEST OF ALYSSA ARREOLA FOR ABDOMINAL PAINSTEROID INJECTION L KNEE /MED REFILL FOR PAIN CONTROLFOLLOW UP AFTER BILAT SACRAL LATERAL MBBRIGHT SACRAL LATERAL RFA/ELFOLLOW UP AFTER SACRAL LATERAL RFANo Information6 week follow upF/U AFTER PT, REVIEW IMAGINGF/U TO REVIEW MRI, REFILL MEDICATIONTRIGGER POINT INJ TO LUCINDA THORACIC AREAmed refill for chronic painf/u to review imagingreview shoulder x- ray and PT for neckBILATERAL L2-3, L3-4, L4-5 LUMBAR FACET RFA2 WEEK F/U AFTER LUCINDA LUMBAR RFAINCREASE SPASMSreview thoracic x-raymed refillTRIGGER POINT INJSMED REFILL FOR PAIN CONTROLNo Information Goals (unrecognized section and content) Goals may be documented in a n alternate section FOR RECORDS PERTAINING TO PATIENTS WHO ARE OR HAVE BEEN ENROLLED IN A CHEMICAL DEPENDENCY/SUBSTANCEABUSE PROGRAM, SOME INFORMATION MAY BE OMITTED. This clinical summary was aggregated from multiple sources. Caution should be exercised in using it in the provision of clinical care. This summary normalizes information from multiple sources, and as a consequence, information in this document may materially change the coding, format and clinical context of patient data. In addition, data may be omitted in some cases. CLINICAL DECISIONS SHOULD BE BASED ON THE PRIMARY CLINICAL RECORDS. [employer] provides no warranty or guarantee of the accuracy or completeness of information in this document.
== END 2023-05-15 16:05 | disposition home or self-care (01) ==
LOC: MRI 16:04
PROVIDERS: PCP Nurse Practitioner Family; Visit Provider Nurse Practitioner Family
DX: G43.709 Chronic migraine without aura, not intractable, without status migrainosus (principal); G47.33 Obstructive sleep apnea (adult) (pediatric)
CPT/HCPCS: 70553; A9575

== ENCOUNTER 2023-05-20 15:25 | Outpatient (OUT) | payer MEDICAID, SELFPAY ==
--- NOTE | 2023-05-20 15:27 | MM_ITS ---
Patient Name: DOUG CARO MR#: [id number] : 1970 Exam Date: 05/20/2023 Ordering Doctor: KIRK ARREOLA CNP RADIOLOGY REPORT PROCEDURE: MM TOMOSYNTHESIS SCREENING BI COMPARISON: MG MAMM SCREEN LUCINDA W CAD, 11/17/2019. MG MAMM SCREEN 3D LUCINDA CAD, 11/22/2021. INDICATIONS: screening Calculator Name NCI Breast Cancer Risk Assessment Tool 5 Year Breast Cancer Risk 1.10% Lifetime Breast Cancer Risk 8.40% Personal Breast Cancer No Personal Ovarian Cancer No Treatments None Family Cancers None LOCATION: [facility] BREAST COMPOSITION: Heterogeneously dense,which may obscure small masses. FINDINGS: DIAGNOSTIC CATEGORY 1--NEGATIVE. NO CHANGE FROM COMPARISON ASSESSMENT. Suboptimal visualization of the axillary tail secondary to difficulty positioning the patient. Scattered benign-appearing nodules are present. Scattered benign-appearing calcifications are present. RIGHT BREAST: No significant suspicious finding. LEFT BREAST: No significant suspicious finding. RECOMMENDATIONS: ROUTINE MAMMOGRAM AND CLINICAL EVALUATION IN 12 MONTHS. PLEASE NOTE: A NORMAL MAMMOGRAM DOES NOT EXCLUDE THE POSSIBILITY OF BREAST CANCER. A CLINICALLY SUSPICIOUS PALPABLE LUMP SHOULD BE BIOPSIED. Dictated by: Shahbaz Munoz MD on 05/21/2023 at 08:24 Approved by: Shahbaz Munoz MD on 05/21/2023 at 08:26
--- OUTSIDE RECORDS SUMMARY | 2023-05-20 15:38 | XMS_ITS | CCD ---
Author Name Unknown Address [address] [facility] [address] [place] [address] Organization [facility] Care Team Providers Care Human Geography Faculty Member Name Role Phone ELTAHAWY, EHAB A Admitting Unavailable ELTAKAREEM, EHAB A Attending Unavailable ALYSSA ARREOLA Primary Care Unavailable ALYSSA ARREOLA Referring Unavailable ALYSSA ARREOLA Primary Care Physician Asif Cox Unavailable Destini Kilgore Unavailable Mellissa Strange Unavailable MATTHIAS Arreola Primary Care Provider [phone] MD Asif Cox Attending Provider [phone] ADONAY Arreola-Jess Shah Lesly Primary Care Provider [...] Consulting Unavailable MAXWELL, ALYSSA Primary Care Unavailable STRAWCHELY GAINES Consulting Unavailable MAXWELL, ALYSSA Primary Care Unavailable [...] SOLITARIO ., DR KIDD Attending Unavailable Maxwell, EXCHANGE ADMINISTRATOR-C Alyssa Lesly Primary Care Provider [phone] Jame, EXCHANGE ADMINISTRATOR Destini Attending Provider [phone] WATSON CARDENAS Attending Unavailable Dioni Flores Attending Unavailable Maxwell, EXCHANGE ADMINISTRATOR-C Alyssa Lesly Primary Care Provider MD Alexey Maki Attending Provider MD Asif Cox Attending Provider Alexey Maki Admitting Unavailab Alexey Bay Attending Unavailab le Maxwell, Alyssa Lesly Primary Care Unavailable Brooke, Asif S Attending Unavailable Maxwell, Alyssa Lesly Primary Care Unavailable Brooke, Asif S Admitting Unavailable Kilgore, Destini Admitting Unavailable Kilgore, Destini Attending Unavailable Maxwell, Alyssa Lesly Primary Care Unavailable Brooke, Asif S Admitting Unavailable Brooke, Asif S Attending Unavailable Alyssa Arreola Primary Care Unavailable Brooke, Asif S Attending Unavailable Alyssa Arreola Lesly Primary Care Unavailable Brooke, Asif S Admitting Unavailable Brooke, Asif S Attending Unavailable Brooke, Asif S Admitting Unavailable Alyssa Arreola Lesly Primary Care Unavailable Allergies Allergy Classification Reported Allergen(s) Allergy Type Date of Onset Reaction(s) Facility (20 sources) Aspirin; Translations: [aspirin] Drug Allergy 2 Tremor (finding) Nor1 Other (7 sources) Desonide; Translations: [desonide topical] Drug Allergy 3 Unknown [facility] (4 sources) Tape 1 Drug allergy Eruption of skin (disorder) [facility] Comment on above: adhesive (7 sources) Adhesive Tape; Translations: [adhesive tape] Allergy to substance 2 Rash [facility] (2 sources) Aspirin Drug Allergy 3 [facility] Repository (1 source) Adhesive Tape; Translations: [Tape] Propensity to adverse reactions (disorder) [facility] Repository (1 source) Aspirin Drug Allergy 3 [facility] Repository Medications Current Medications Medication Drug Class(es) [...] day(s), # 14 cap(s), Refills(s) 0, Pharmacy: [facility]/pharmacy #[id number], 173, cm, 08/09/21 11:09:00 EDT, Height/Length Dosing, 142, kg, 08/09/21 11:09:00 EDT, Weight Dosing Start Date: 10/09/21 Stop Date: 10/16/21 Status: Ordered cyclobenzaprine hydrochloride 5 mg oral tablet (20 sources) Muscle Relaxant Start: 08-29-2021 take 5 mg by mouth once daily at bedtime Cyclobenzaprine Active 5 MG PO Daily at bedtime August 28, 2021 11:00pm Daily Mohan (20 sources) take 1 tablet by mouth twice daily Daily Mohan 1 tablet Orally Twice a day Active Daily Mohan - (11 sources) take 1 tablet by mouth once daily Daily Mohan - 1 tablet Orally Once a day Active diclofenac sodium 75 mg delayed release oral tablet (17 sources) Nonsteroidal Anti-inflammatory Drug Start: take 1 [...] 70 mg/ml auto-injector (2 sources) Start: 08-09-2021 Aimbrenda SureCl ick 70 mg/mL subcutaneous solution 70 mg Start Date: 08/09/21 Status: Ordered famotidine 40 mg oral tablet (6 sources) Histamine-2 Receptor Antagonist Start: 03-06-2021 take 40 mg by mouth twice daily Famotidine Active 40 MG PO Twice daily March 06, 2021 12:00am fluticasone propionate 0.05 mg/actuat metered dose nasal spray (8 sources) Corticosteroid Start: 03-06-2021 Fluticasone Propionate Active 50 MCG INTRANASAL Daily March 06, 2021 12:00am Start: 05-03-2019 fluticasone 0. 05 mg/inh Nasal [place] Nasal, Daily, Refill(s) 0 Start Date: 05/03/19 Status: Ordered fluticasone 0.05 mg/inh Nasal [place] (2 sources) Start: 05-03-2019 fluticasone 0. 05 mg/inh Nasal [place] Nasal, Daily, Refill(s) 0 Start Date: 05/03/19 Status: Ordered furosemide 40 mg oral tablet (6 sources) Loop Diuretic Start: 03-06-2021 take 40 [...] 2021 12:00am take 1 tablet by elyssa th every twenty-four hours lamoTRIgine 200 MG 1 [...] hrs Active methylPREDNISolone 4 mg oral tablet (3 sources) Corticosteroid Start: 04-09-2023 Medrol (Sebastian) 4 MG as directed Orally for daily dose take half with breakfast half with dinner for 6 days Mar, Active naratriptan 2.5 mg oral tablet (11 sources) Serotonin-1b and Serotonin-1d Receptor Agonist take 1 tablet by mouth every twenty-four hours Naratriptan HCl 2.5 MG 1 tablet Orally Once a day Active omeprazole 40 mg delayed release oral capsule (11 sources) Proton Pump Inhibitor take 1 capsule [...] pantoprazole 40 mg delayed release oral tablet (10 sources) Proton Pump Inhibitor Start: 03-06-2021 take [...] tablet by elyssa th every twenty-four hours Rizatriptan Benzoate 10 MG 1 tablet Oral ly Once a day Not-Taking/PRN simvastatin 40 mg oral tablet (11 sources) HMG-CoA Reductase Inhibitor take 1 tablet by mouth every twenty-four hours Simvastatin 40 MG 1 tablet in the evening Orally Once a day Active spironolactone 50 mg oral tablet (20 sources) Aldosterone Antagonist Start: 2020 take 50 mg by mouth once daily Spironolactone Active 50 MG PO Daily March 06, 2021 12:00am sucralfate 1000 mg oral tablet (6 sources) Aluminum Complex Start: 2020 take 1 g by mouth four times daily Sucralfate Active 1 GM PO Four times daily March 06, 2021 12:00am sulfamethoxazole 800 mg / trimethoprim 160 mg oral tablet (2 sources) Dihydrofolate Reductase Inhibitor Antibacterial, Sulfonamide Antimicrobial Start: 2021 End: 2021 Bactrim DS 800 mg-160 mg Tab 1 tab(s), Oral, BID for 7 day(s), 14 tab(s), Refill(s) 0, [facility]/pharmacy #[id number], 173, cm, 08/09/21 11:09:00 EDT, Height/Length Dosing, 142, kg, 08/09/21 11:09:00 EDT, Weight Dosing Start Date: 08/09/21 Stop Date: 08/16/21 Status: Ordered SZSTANDARD1-Topical Cream Baclofen 2%, Cyclobenzaprine HCL 2%, Diclofenac Na 3%, Gabapentin 6%, Lidocaine HCL 2% Cream (16 sources) Start: 2021 SZSTANDARD1-Topical Cream Baclofen 2%, [...] tartrate 4 mg extended release oral capsule (12 sources) Cholinergic Muscarinic Antagonist Start: 03-06-2021 take [...] mg / caffeine 40 mg oral tablet (6 sources) Barbiturate, Central Nervous System Stimulant, Methylxanthine Start: 03-06-2021 End: 08-29-2021 Esluchcfnq-Hcuphfjlfwpvk-Sqv f Discontinued 1 TAB PO As Directed March 06, 2021 12:00am August 29, 2021 9:35am amitriptyline hydrochloride 150 mg oral tablet (20 sources) Tricyclic Antidepressant take 1 tablet by mouth every twenty-fo ur hours Amitriptyline HCl 150 MG 1 tablet at bedtime Orally Once a day Not-Taking/PRN azithromycin 250 mg oral tablet (6 sources) Macrolide Antimicrobial Start: 03-06-2021 End: 08-15-2021 Azithromycin Discontinued MG TABLET March 06, 2021 12:00am August 15, 2021 8:58am docusate sodium 50 mg / sennosides, alf 8.6 mg oral tablet (20 sources) Start: 07-09-2021 take 8.6-50 mg by mouth once daily at bedtime Senokot S 8.6-50 MG 2 tab(s) Orally qhs for 30 day(s) Jun, Not-Taking/PRN Emgality (16 sources) Emgality Not-Maicol ing/PRN Emgality Not-Maicol ing Emgality Active nitrofurantoin, macrocrystals 25 mg / nitrofurantoin, monohydrate 75 mg oral capsule (9 sources) Nitrofuran Antibacterial take 1 capsule by mouth every twenty-four hours Macrobid 100 MG 1 capsule with food Orally Once a day Not-Taking PARoxetine hydrochloride 20 mg oral tablet (20 sources) Serotonin Reuptake Inhibitor Start: 021 End: Paroxetine Hcl Discontinued 20 MG PO As Directed March 06, 2021 12:00am August 29, 2021 9:35am Start: 04-23-2019 paroxetine Ora l, Refills(s) 0 Start Date: 04/23/19 Status: Ordered take 2 tablets by mo uth every twenty-four hours Paxil 30 MG 2 tablets Orally Once a day Not-Taking take 2 tablets by mo uth every twenty-four hours microencapsulated potassium chloride 20 meq extended release oral tablet (6 sources) Start: 03-06-2021 End: 08-29-2021 Potassium Chloride [...] day Not-Taking/PRN topiramate 100 mg oral tablet (19 sources) Start: 03-06-2021 End: 08-29-2021 Topiramate Discontinued [...] Date Documented Da te Episodic/Chronic Abdominal pain (6 sources) Lower abdominal pain; Translations: [Lower abdominal [...] 04-23-2019 Chronic Other aftercare (1 source) 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; Translations: [OTH RETIREMENT CURRENT DRUG THERAPY] Onset: 3 Episodic Other connective tissue disease (20 sources) Fibromyalgia; Translations: [Fibromyalgia] 04-23-2019 Episodic Other connective tissue disease (5 sources) Myalgia, other site Episodic Other connective tissue disease (5 sources) Fibromyalgia; Translations: [FIBROMYALGIA] Onset: 3 Episodic [...] right shoulder] Episodic Other non-traumatic joint disorders (9 sources) Pain in right shoulder; Translations: [Right [...] Name Value Interpretation Reference Range Facility XR lumbar spine AP/LAT/FLX/E XTon 05-19-2023 XR lumbar spine AP/LAT/FLX/EXT [facility] [place] [address] [place] [address] XRay Report Signed Patient: Shailesh Blake MR#: [id number] : 1970 Acct:[id number] Age/Sex: 52 / F ADM Date: 05/19/23 Loc: XD Room: Type: [facility] Attending Dr: Asif Cox MD Copies to: Asif Cox MD Ordering Provider: Asif Cox MD Date of Service: 05/19/23 XR/XR lumbar spine AP/LAT/FLX/EXT: Lumbosacral spondylosis without myelopathy XR lumbar spine AP/LAT/FLX/EXT 05/19/2023 4:02 PM SIGNS AND SYMPTOMS: Low back pain with numbness and tingling in lower extremities PROTOCOLS: Frontal, lateral, and flexion-extension views of the lumbar spine COMPARISON: None FINDINGS: The alignment, development and bony structures are normal. There is no fracture or destructive lesion. There is no pathologic movement on flexion or extension. There is mild intervertebral disc height loss at L3-4, L4-5, and L5-S1. Facet degenerative changes are present throughout the lower lumbar spine. The sacrum and sacroiliac joints are normal. There is evidence of prior cholecystectomy. XR/XR lumbar spine AP/LAT/FLX/EXT IMPRESSION: No fracture or subluxation. There is no pathologic movement on flexion or extension. There is mild intervertebral disc height loss at L3-4, L4-5, and L5-S1. Facet degenerative changes are present throughout the lower lumbar spine. Impression dictated by: Ronan Henry M.D.05/19/2023 6:03 PM Dictation Location: RADIO-PC-13 Transcribed By: MADAN 05/19/231802 Dictated By: Ronan Henry II, MD 05/19/23 1800 Signed By: 05/19/231802 [facility] XR hip LT min 2V(w/wo pelvis )*on 04-09-2023 XR hip LT min 2V(w/wo pelvis)* [place] [address] XRay Report Signed Patient: Shailesh Blake MR#: [id number] : 1970 Acct:[id number] Age/Sex: 52 / F ADM Date: 04/09/23 Loc: XD Room: Type: [facility] Attending Dr: Destini Kilgore EXCHANGE ADMINISTRATOR Copies to: Destini Kilgore NP Ordering Provider: [...] process. Impression dictated by: Memo Blanchard Jr., D.OPromise04/09/2023 3:57 PM Dictation Location: RADIO--08 Transcribed By: MADAN 04/09/23 155 Dictated By: Memo Blanchard Jr, DO 04/09/23 155 Signed By: 04/09/231556 [facility] XR hip LT min 2V(w/wo pelvis)* [facility] Other XR hip LT min 2V(w/wo pelvis)* [facility] [place] Nor1 Other XR hip LT min 2V(w/wo pelvis)* [facility] Nor1 Other XR hip LT min 2V(w/wo pelvis)* [place] [address] Nor1 Other XR hip LT min 2V(w/wo pelvis)* XRay Report Nor1 Other XR hip LT min 2V(w/wo pelvis)* Signed Nor1 Other XR hip LT min 2V(w/wo pelvis)* Patient: Shailesh Blake MR#: [id number] Nor1 Other XR hip LT min 2V(w/wo pelvis)* : 1970 Acct:[id number] Nor1 Other XR hip LT min 2V(w/wo pelvis)* Age/Sex: 52 / F ADM Date: 04/09/23 Nor1 Other XR hip LT min 2V(w/wo pelvis)* Loc: XD Room: Type: REG I Nor1 Other XR hip LT min 2V(w/wo pelvis)* Attending Dr: Destini Kilgore NP Nor1 Other XR hip LT min 2V(w/wo pelvis)* Copies to: Destini Kilgore NP Nor1 Other XR hip LT min 2V(w/wo pelvis)* Ordering Provider: Destini Kilgore NP Nor1 Other XR hip LT min 2V(w/wo pelvis)* Date of Service: 04/09/23 Nor1 Other XR hip LT min 2V(w/wo pelvis)* XR/XR hip LT min 2V(w/wo pelvis)*: Left hip pain Nor1 Other XR hip LT min 2V(w/wo pelvis)* Left hip 2 views. Nor1 Other XR hip LT min 2V(w/wo pelvis)* Reason for exam: Left hip pain radiates into the joint and down into the knee for 3 days. Nor1 Other XR hip LT min 2V(w/wo pelvis)* COMPARISON: None. Nor1 Other XR hip LT min 2V(w/wo pelvis)* FINDINGS: Mild degenerative changes of the left hip without acute bony process. Nor1 Other XR hip LT min 2V(w/wo pelvis)* XR/XR hip LT min 2V(w/wo pelvis)* Nor1 Other XR hip LT min 2V(w/wo pelvis)* IMPRESSION: Mild degenerative changes of the left hip without acute bony process. Nor1 Other XR hip LT min 2V(w/wo pelvis)* Impression dictated by: Memo Blanchard Jr., DPromiseOPromise04/09/2023 3:57 PM Nor1 Other XR hip LT min 2V(w/wo pelvis)* Dictation Location: [place] [address] Nor1 Other XR hip LT min 2V(w/wo pelvis)* Transcribed By: [facility] 04/09/23 [facility] Nor1 Other XR hip LT min 2V(w/wo pelvis)* Dictated By: Memo Blacnhard Jr, DO 04/09/23 [facility] Nor1 Other XR hip LT min 2V(w/wo pelvis)* Signed By: Nor1 Other XR hip LT min 2V(w/wo pelvis)* 04/09/23 [facility] Nor1 Other XR thoracic spine 3V*on XR thoracic spine 3V* [facility] [place] [address] [place] [address] XRay Report Signed Patient: Shailesh Blake MR#: [id number] : 1970 Acct:[id number] Age/Sex: 51 / F ADM Date: 10/31/22 Loc: XD Room: Type: [facility] Attending Dr: Asif Cox MD Copies to: [...] PROCESS. Impression dictated by: Memo Blanchard Jr., D.OPromise10/31/2022 7:23 PM Dictation Location: [place] [address] Transcribed By: [facility] 10/31/221922 Dictated By: Memo Blanchard Jr, DO 10/31/221922 Signed By: 10/31/221922 [facility] US PELVIS AND TRANSVAGon US PELVIS [...] by: AGUSTIN CANO Date: 2022-08-27 07:34 Normal [facility] XR DEXA BONE DENSITYon 08-26 XR DEXA [...] by: AGUSTIN CANO Date: 2022-08-26 16:16 Normal [facility] PAP ACOG PANEL 2: 30 to 65on 08-10-2022 . . Normal [facility] Comment on above: Result Comment: Perf ormed at: WB Performed By: #### [id number] #### [facility] [address] [place] [address] Dr. Beth Alanis Age Gdln ACOG Testing 30-65 [facility] Comment on above: Performed By: #### [id number] #### [facility] [address] [place] [address] [address] Beth Alanis DIAGNOSIS: Comment Normal [facility] Comment on above: Result Comment: NEGA TIVE FOR INTRAEPITHELIAL LESION OR MALIGNANCY. Performed at: WB Performed By: #### [id number] #### [facility] [address] [place] [address] [address] Beth Alanis HPV Aptima Negative Normal Negative [facility] Comment on above: Result Comment: This nucleic acid amplification test detects fourteen high-risk HPV types (16,18,31,33,35,39,45,51,52,56,58,59,66,68) without differentiation. Performed at: =G Performed By: #### 4 [id number] #### [facility] [address] [place] [address] Dr. Beth Alanis HPV Genotype Reflex Comment Normal [facility] Comment on above: Result Comment: Crit eria not met, HPV Genotype not performed. Performed at: WB Performed By: #### [id number] #### [facility] [address] [place] [address] Dr. Beth Alanis Methodology: Comment Normal [facility] Comment on above: Result Comment: This liquid based ThinPrep(R) pap test was screened with the use of an image guided system. Performed at: WB Performed By: #### 4 [id number] #### [facility] [address] [place] [address] Dr. Beth Alanis Note: Comment Normal [facility] Comment on above: Result Comment: The Pap smear is a screening test designed to aid in the detection of premalignant and malignant conditions of the uterine cervix. It is not a diagnostic procedure and should not be used as the sole means of detecting cervical cancer. Both false-positive and false-negative reports do occur. . Performed at: WB Performed By: #### [id number] #### [facility] [address] [place] [address] Dr. Beth Alanis Performed by: Comment Normal [facility] Comment on above: Result Comment: Evelyn Ayala, Credit Risk Manager (ASCP) Performed at: WB Performed By: #### 4 [id number] #### [facility] [address] [place] [address] Dr. Beth Alanis Specimen adequacy: Comment Normal [facility] Comment on above: Result Comment: Sati sfactory for evaluation. Endocervical and/or squamous metaplastic cells (endocervical component) are present. Performed at: WB Performed By: #### 4 [id number] #### [facility] [address] [place] [address] Dr. Beth Alanis [facility]on 03-1 9-2023 SARS-CoV-2 (COVID-19) RNA ANITA+probe Ql (Unsp spec) Not detected Normal NOT DETECTED [facility] Comment on above: Result Comment: This test is not yet approved or cleared by the [place] FDA. When there are no FDA-approved or cleared tests available, and other criteria are met, FDA can make tests available under an emergency access mechanism called an Emergency Use Authorization (EUA). The EUA for this test is supported by the [place] of Health and Human Service's (HHS's) declaration [...] consistent with SARS-CoV-2. Performed By: #### B EXCHANGE ADMINISTRATOR, BMP, HSTROPN #### [facility] [address] [place] [address] Dr. Beth Alanis INFLUENZA A [facility] B [facility]on [facility] Normal [facility] Comment on above: Result Comment: Nega tive for Flu A protein angiten. Infection due to Flu A cannot be ruled out. Flu A angiten in the sample may be below the detection limit of the test. Performed By: #### I NFLUAB #### [facility] [address] [place] [address] Dr. Beth Alanis INFLUBNEG SEE BELOW Normal [facility] Comment on above: Result Comment: Nega tive for Flu B protein antigen. Infection due to Flu B cannot be ruled out. Flu B antigen in the sample may be below the detection limit of the test. Performed By: #### I NFLUAB #### [facility] [address] [place] [address] Dr. Beth Alanis INFLUENZA A AG Negative Normal NEGATIVE SEE COMMENT [facility] Comment on above: Performed By: #### I NFLUAB #### [facility] [address] [place] [address] [id number] [address] Beth Alanis INFLUENZA B AG Negative Normal NEGATIVE SEE COMMENT [facility] Comment on above: Performed By: #### I NFLUAB #### [facility] [address] [place] [address] Dr. Beth Alanis SYMPTOMATIC COVID-19 ANTIGEN on 07-14-2022 EUA Statement SEE BELOW Normal [facility] Comment on above: Result Comment: This test [...] is revoked sooner. Performed By: #### B EXCHANGE ADMINISTRATORCHARI, HSTROPN #### [facility] [address] [place] [address] Dr. Beth Alanis SARS-CoV-2 (COVID-19) RNA ANITA+probe Ql (Unsp spec) Negative Normal NEGATIVE [facility] Comment on above: Performed By: #### B EXCHANGE ADMINISTRATOR BMP, HSTROPN #### [facility] [address] [place], [place] [id number] Dr. Beth Alanis XR CHEST 1 Von 07-14-2022 XR CHEST 1 V EXAM: Chest x-ray HISTORY: . COUGH . COMPARISON: 10/23/2021 TECHNIQUE: Single view of the chest. FINDINGS: Heart and vascularity are unremarkable. Lungs are free of focal infiltrates. Grossly no bony abnormality is appreciated. Impression: No acute heart or lung disease identified. Electronically authenticated by: MELLISSA PRIEST Date: 2022-07-14 11:13 Normal [facility] XR shoulder RT min 2V*on XR shoulder RT min 2V* [facility] [place] [address] [place] [address] XRay Report Signed Patient: Shailesh Blake MR#: [id number] : 1970 Acct:[id number] Age/Sex: 51 / F ADM Date: 07/08/22 Loc: X Room: Type: [facility] Attending Dr: Asif Cox MD Copies to: Asif Cxo MD Ordering Provider: Asif Cox MD Date of Service: 07/08/22 XR/XR shoulder RT min 2V*: Right shoulder pain 3 views rightshoulder HISTORY:Right shoulder pain COMPARISON:None ACUTE FINDINGS:None DEGENERATIVE CHANGE:Minor degenerative changes. SOFT TISSUE FINDINGS:Unremarkable JOINT EFFUSION:None POSTOP CHANGES:None BONY MINERALIZATION:[place] te XR/XR shoulder RT min 2V* IMPRESSION:Minor degeneration. Impression dictated by: Benito Blake M.D.07/08/2022 1:10 PM Dictation Location: [place] [address] Transcribed By: [facility] 07/08/22 1310 Dictated By: Benito Blake DO 07/08/22 1307 Signed By: 07/08/22 1310 Normal [facility] VAGINITIS/VAGINOSIS DNA PROB Pablo 05-22-2022 Rosie species Negative Normal Negative [facility] Comment on above: Performed By: #### V AGINT #### [facility] [address] [place] [address] Dr. Beth Alanis Gardnerella vaginalis Negative Normal Negative [facility] Comment on above: Performed By: #### V AGINT #### [facility] [address] [address] [address] Beth Alanis Trichomonas vaginalis Negative Normal Negative [facility] Comment on above: Performed By: #### V AGINT #### [facility] [address] [place] [address] Dr. Beth Alanis LIPID PROFILEon 03-18-2022 CHOL-HDL RATIO NORM SEE BELOW Normal [facility] Comment on above: Result Comment: 3.3 - 4.4 LOW RISK 4.4 - 7.1 AVERAGE RISK 7.1 - 11.0 MODERATE RISK >11.0 HIGH RISK Performed By: #### 4 [id number] #### [facility] [address] [place] [address] Dr. Beth Alanis Cholesterol [Mass/Vol] 183 mg/dL Normal <=200 [facility] Comment on above: Performed By: #### 4 [id number] #### [facility] [address] [place] [address] Dr. Beth Alanis Cholesterol in HDL [Mass/Vol] 56 mg/dL Normal 40-60 [facility] Comment on above: Performed By: #### [id number] #### [facility] [address] [place] [address] Dr. eBth Alanis Cholesterol in LDL [Mass/Vol] 106.8 mg/dL Normal [facility] Comment on above: Performed By: #### 4 [id number] #### [facility] [address] [place] [address] Dr. Beth Alanis Cholesterol.total/C holesterol in HDL [Mass ratio] 3.3 {ratio} Normal [facility] Comment on above: Performed By: #### 4 [id number] #### [facility] [address] [place] [address] Dr. Beth Alanis HDL NORMAL > or = 60 mg/dl - LO W CARDIOVASCULAR RISK <40 mg/dl - HIGH CARDIOVASCULAR RISK Normal [facility] Comment on above: Performed By: #### 4 [id number] #### [facility] [address] [place] [address] Dr. Beth Alanis LDL CALC NORMAL SEE BELOW Normal [facility] Comment on above: Result Comment: <100 mg/dl OPTIMAL 100 - 129 mg/dl NEAR OR ABOVE OPTIMAL 130 - 159 mg/dl BORDERLINE HIGH 160 - 189 mg/dl HIGH >190 mg/dl VERY HIGH Performed By: #### 4 [id number] #### [facility] [address] [place] [address] Dr. Beth Alanis Triglyceride [Mass/Vol] 101 mg/dL Normal <=150 [facility] Comment on above: Performed By: #### 4 [id number] #### [facility] [address] [place] [address] Dr. Beth Alanis VLDL CALC 20.2 mg/dL Normal [facility] Comment on above: Performed By: #### 4 [id number] #### [facility] Laboratory [address] [place] [address] Dr. Beth Alanis PROF 14(COMP METB)on 022 Albumin [Mass/Vol] 3.8 g/dL Normal 3.4-5.0 [facility] Comment on above: Performed By: #### 4 [id number] #### [facility] [address] [place] [address] Dr. Beth Alanis Albumin/Globulin [Mass ratio] 0.8 {ratio} Normal [facility] Comment on above: Performed By: #### 4 [id number] #### [facility] [address] [place] [address] Dr. Beth Alanis ALP [Catalytic activity/Vol] 108 U/L Normal 46-116 [facility] Comment on above: Performed By: #### 4 [id number] #### [facility] [address] [place] [address] Dr. Beth Alanis ALT [Catalytic activity/Vol] 28 U/L Normal 14-59 [facility] Comment on above: Performed By: #### 4 [id number] #### [facility] [address] [place] [address] Dr. Beth Alanis Anion gap [Moles/Vol] 10.3 mmol/L Normal [facility] Comment on above: Performed By: #### 4 [id number] #### [facility] [address] [place] [address] Dr. Beth Alanis AST [Catalytic activity/Vol] 18 U/L Normal 15-37 [facility] Comment on above: Performed By: #### 4 [id number] #### [facility] [address] [place] [address] Dr. Beth Alanis Bilirubin [Mass/Vol] 0.7 mg/dL Normal 0.2-1.0 [facility] Comment on above: Performed By: #### 4 [id number] #### [facility] [address] [address] [address] Beth Alanis Calcium [Mass/Vol] 9.5 mg/dL Normal 8.5-10.1 [facility] Comment on above: Performed By: #### 4 [id number] #### [facility] [address] [address] [address] Beth Alnais Chloride [Moles/Vol] 102 mmol/L Normal 98-107 [facility] Comment on above: Performed By: #### 4 [id number] #### [facility] [address] [place] [address] Dr. Beth Alanis CO2 [Moles/Vol] 27.6 mmol/L Normal 21.0-32.[address] [facility] Comment on above: Performed By: #### 4 [id number] #### [facility] [address] [place] [address] Dr. Beth Alanis Creatinine [Mass/Vol] 0.93 mg/dL Normal 0.55-1.02 [facility] Comment on above: Performed By: #### 4 [id number] #### [facility] [address] [place] [address] Dr. eBth Alanis EGFR-AF MOROCCAN >60 Normal >=[address] [facility] Comment on above: Performed By: #### 4 [id number] #### [facility] [address] [place] [address] Dr. Beth Alanis EGFR-NON AF MOROCCAN >60 Normal >=60 [facility] Comment on above: Performed By: #### 4 [id number] #### [facility] [address] [place] [address] Dr. Beth Alanis Globulin (S) [Mass/Vol] 5.0 g/dL Normal [facility] Comment on above: Performed By: #### 4 [id number] #### [facility] [address] [place] [address] Dr. Beth Alanis Glucose [Mass/Vol] 108 mg/dL Critically high 74-106 [facility] Comment on above: Performed By: #### 4 [id number] #### [facility] [address] [place], [place] [id number] Dr. Beth Alanis Potassium [Moles/Vol] 3.9 mmol/L Normal 3.5-5.1 [facility] Comment on above: Performed By: #### 4 [id number] #### [facility] [address] [place] [address] Dr. Beth Alanis Protein [Mass/Vol] 8.8 g/dL Critically high 6.4-8.2 [facility] Comment on above: Performed By: #### 4 [id number] #### [facility] [address] [address] [address] Beth Alanis Sodium [Moles/Vol] 136 mmol/L Normal 136-145 [facility] Comment on above: Performed By: #### 4 [id number] #### [facility] [address] [place] [address] Dr. Beth Alanis Urea nitrogen [Mass/Vol] 17.0 mg/dL Normal 7.0-18.0 [facility] Comment on above: Performed By: #### 4 [id number] #### [facility] [address] [place] [address] Dr. Beth Alanis Urea nitrogen/Creatinine [Mass ratio] 18.3 mg/mg Normal [facility] Comment on above: Performed By: #### 4 [id number] #### [facility] [address] [place] [address] Dr. Beth Alanis MG MAMM SCREEN 3D LUCINDA CADon 11-22-2021 MG MAMM SCREEN 3D ULCINDA CAD Patient: SHAILESH BLAKE Exam Date: 11/22/2021 : 1970 Gender:F Ordering : DR MARTI JEREZ . Admission #: [id number] Family : Order #: [id number] CLICK HERE TO VIEW EXAM RADIOLOGY REPORT [...] No Treatments None Family Cancers None LOCATION: [facility] BREAST COMPOSITION: Heterogeneously dense,which may obscure [...] Cano M.D. on 11/22/2021 at 15:52 Normal [facility] GLUCOSE BLOODon 11-21-2021 Glucose [Mass/Vol] 110 mg/dL Critically high 74-106 [facility] Comment on above: Performed By: #### 4 [id number] #### [facility] [address] [place] [address] Dr. Beth Alanis LIPID PROFILEon 11-21-2021 CHOL-HDL RATIO NORM SEE BELOW Normal [facility] Comment on above: Result Comment: 3.3 - 4.4 LOW RISK 4.4 - 7.1 AVERAGE RISK 7.1 - 11.0 MODERATE RISK >11.0 HIGH RISK Performed By: #### 4 [id number] #### [facility] [address] [place] [address] Dr. Beth Alanis Cholesterol [Mass/Vol] 258 mg/dL Critically high <=200 [facility] Comment on above: Performed By: #### 4 [id number] #### [facility] [address] [place] [address] Dr. Beth Alanis Cholesterol in HDL [Mass/Vol] 34 mg/dL Critically low 40-60 [facility] Comment on above: Performed By: #### 4 [id number] #### [facility] [address] [place] [address] Dr. Beth Alanis Cholesterol in LDL [Mass/Vol] 161.4 mg/dL Normal [facility] Comment on above: Performed By: #### 4 [id number] #### [facility] [address] [place] [address] Dr. Beth Alanis Cholesterol.total/C holesterol in HDL [Mass ratio] 7.6 {ratio} Normal [facility] Comment on above: Performed By: #### 4 [id number] #### [facility] [address] [address] [address] Beth Alanis HDL NORMAL > or = 60 mg/dl - LO W CARDIOVASCULAR RISK <40 mg/dl - HIGH CARDIOVASCULAR RISK Normal [facility] Comment on above: Performed By: #### 4 [id number] #### [facility] [address] [place] [address] Dr. Beth Alanis LDL CALC NORMAL SEE BELOW Normal [facility] Comment on above: Result Comment: <100 mg/dl OPTIMAL 100 - 129 mg/dl NEAR OR ABOVE OPTIMAL 130 - 159 mg/dl BORDERLINE HIGH 160 - 189 mg/dl HIGH >190 mg/dl VERY HIGH Performed By: #### 4 [id number] #### [facility] [address] [place] [address] Dr. Beth Alanis Triglyceride [Mass/Vol] 313 mg/dL Critically high <=150 [facility] Comment on above: Performed By: #### 4 [id number] #### [facility] [address] [place] [address] Dr. Beth Alanis VLDL CALC 62.6 mg/dL Normal [facility] Comment on above: Performed By: #### 4 [id number] #### [facility] [address] [place] [address] Dr. Beth Alanis BNPon 10-23-2021 Natriuretic peptide B (Bld) [Mass/Vol] 15.0 pg/mL Normal <=900.0 [facility] Comment on above: Performed By: #### B EXCHANGE ADMINISTRATOR, BMP, HSTROPN #### [facility] [address] [place] [address] Dr. Beth Alanis CBC AUTO DIFFon 10-23-2021 BASO # 0.1 103/ul Normal 0.0-0.1 [facility] Comment on above: Performed By: #### B EXCHANGE ADMINISTRATOR, BMP, HSTROPN #### [facility] [address] [place] [address] Dr. Beth Alanis Basophils/100 WBC (Bld) 0.6 % Normal 0.2-2.0 [facility] Comment on above: Performed By: #### B EXCHANGE ADMINISTRATOR, BMP, HSTROPN #### [facility] [address] [place] [address] Dr. Beth Alanis EO # 0.1 103/ul Normal 0.0-0.7 [facility] Comment on above: Performed By: #### B EXCHANGE ADMINISTRATOR, BMP, HSTROPN #### [facility] [address] [place] [address] Dr. Beth Alanis Eosinophils/100 WBC (Bld) 1.8 % Normal 0.9-7.0 [facility] Comment on above: Performed By: #### B EXCHANGE ADMINISTRATOR, BMP, HSTROPN #### [facility] [address] [place] [address] Dr. Beth Alanis Erythrocyte distribution width (RBC) [Ratio] 13.6 % Normal 11.0-15.0 [facility] Comment on above: Performed By: #### B EXCHANGE ADMINISTRATOR, BMP, HSTROPN #### [facility] [address] [place] [address] Dr. Beth Alanis Hematocrit (Bld) [Volume fraction] 46.6 % Normal 36.0-48.0 [facility] Comment on above: Performed By: #### B EXCHANGE ADMINISTRATOR, BMP, HSTROPN #### [facility] [address] [place] [address] Dr. Beth Alanis Hemoglobin (Bld) [Mass/Vol] 15.1 g/dL Normal 12.0-16.0 [facility] Comment on above: Performed By: #### B EXCHANGE ADMINISTRATOR, BMP, HSTROPN #### [facility] [address] [place] [address] Dr. Beth Alanis IG # 0.02 10e3/ul Normal 0.00-0.03 [facility] Comment on above: Performed By: #### B EXCHANGE ADMINISTRATOR, BMP, HSTROPN #### [facility] [address] [place] [address] Dr. Beth Alanis IG % 0.3 % Normal 0.0-0.5 [facility] Comment on above: Performed By: #### B EXCHANGE ADMINISTRATOR, BMP, HSTROPN #### [facility] [address] [place] [address] Dr. Beth Alanis LYMPH # 1.9 103/ul Normal 1.2-3.8 [facility] Comment on above: Performed By: #### B EXCHANGE ADMINISTRATOR, BMP, HSTROPN #### [facility] [address] [place] [address] Dr. Beth Alanis Lymphocytes/100 WBC (Bld) 23.9 % Normal 20.5-60.0 [facility] Comment on above: Performed By: #### B EXCHANGE ADMINISTRATOR, BMP, HSTROPN #### [facility] [address] [place] [address] Dr. Beth Alanis MANUAL DIFF REQ NO Normal [facility] Comment on above: Performed By: #### B EXCHANGE ADMINISTRATOR, BMP, HSTROPN #### [facility] [address] [place] [address] Dr. Beth Alanis MCH (RBC) [Entitic mass] 29.8 pg Normal 26.7-34.0 [facility] Comment on above: Performed By: #### B EXCHANGE ADMINISTRATOR, BMP, HSTROPN #### [facility] [address] [place] [address] Dr. Beth Alanis MCHC (RBC) [Mass/Vol] 32.4 g/dL Normal 29.9-35.2 [facility] Comment on above: Performed By: #### B EXCHANGE ADMINISTRATOR, BMP, HSTROPN #### [facility] [address] [place] [address] Dr. Beth Alanis MCV (RBC) [Entitic vol] 91.9 fL Normal 81.0-99.0 [facility] Comment on above: Performed By: #### B EXCHANGE ADMINISTRATOR, BMP, HSTROPN #### [facility] [address] [place] [address] Dr. Beth Alanis MONO # 0.6 103/ul Normal 0.3-0.8 [facility] Comment on above: Performed By: #### B EXCHANGE ADMINISTRATOR, BMP, HSTROPN #### [facility] [address] [place] [address] Dr. Beth Alanis Monocytes/100 WBC (Bld) 7.7 % Normal 1.7-12.0 [facility] Comment on above: Performed By: #### B EXCHANGE ADMINISTRATOR, BMP, HSTROPN #### [facility] [address] [place] [address] Dr. Beth Alanis NEUT # 5.1 103/ul Normal 1.4-6.5 [facility] Comment on above: Performed By: #### B EXCHANGE ADMINISTRATOR, BMP, HSTROPN #### [facility] [address] [place] [address] Dr. Beth Alanis Neutrophils/100 WBC (Bld) 65.7 % Normal 43.0-75.0 [facility] Comment on above: Performed By: #### B EXCHANGE ADMINISTRATOR, BMP, HSTROPN #### [facility] [address] [place] [address] Dr. Beth Alanis Platelet mean volume (Bld) [Entitic vol] 9.6 fL Normal 9.5-13.5 [facility] Comment on above: Performed By: #### B EXCHANGE ADMINISTRATOR, BMP, HSTROPN #### [facility] [address] [place] [address] Dr. Beth Alanis PLT 324 103/ul Normal 150-450 [facility] Comment on above: Performed By: #### B EXCHANGE ADMINISTRATOR, BMP, HSTROPN #### [facility] [address] [place] [address] Dr. Beth Alanis RBC 5.07 106/ul Normal 4.20-5.40 [facility] Comment on above: Performed By: #### B EXCHANGE ADMINISTRATOR, BMP, HSTROPN #### [facility] [address] [place] [address] Dr. Beth Alanis WBC 7.8 103/ul Normal 4.0-11.0 [facility] Comment on above: Performed By: #### B EXCHANGE ADMINISTRATOR, BMP, HSTROPN #### [facility] [address] [place] [address] Dr. Beth Alanis PROF CHEM 8 (BAS METB)on Anion gap [Moles/Vol] 6.7 mmol/L Normal [facility] Comment on above: Performed By: #### B EXCHANGE ADMINISTRATOR, BMP, HSTROPN #### [facility] [address] [place] [address] Dr. Beth Alanis Calcium [Mass/Vol] 9.3 mg/dL Normal 8.5-10.1 [facility] Comment on above: Performed By: #### B EXCHANGE ADMINISTRATOR, BMP, HSTROPN #### [facility] [address] [address] [address] Beth Alanis Chloride [Moles/Vol] 104 mmol/L Normal 98-107 [facility] Comment on above: Performed By: #### B EXCHANGE ADMINISTRATOR, BMP, HSTROPN #### [facility] [address] [place] [address] Dr. Beth Alanis CO2 [Moles/Vol] 31.3 mmol/L Normal 21.0-32.0 [facility] Comment on above: Performed By: #### B EXCHANGE ADMINISTRATOR, BMP, HSTROPN #### [facility] [address] [address] [address] Beth Alanis Creatinine [Mass/Vol] 0.98 mg/dL Normal 0.55-1.02 [facility] Comment on above: Performed By: #### B EXCHANGE ADMINISTRATOR, BMP, HSTROPN #### [facility] [address] [place] [address] Dr. Beth Alanis EGFR-AF MOROCCAN >60 Normal >=60 [facility] Comment on above: Performed By: #### B EXCHANGE ADMINISTRATOR, BMP, HSTROPN #### [facility] [address] [place] [address] Dr. Beth Alanis EGFR-NON AF MOROCCAN =60 Normal >=60 [facility] Comment on above: Performed By: #### B EXCHANGE ADMINISTRATOR, BMP, HSTROPN #### [facility] [address] [place] [address] Dr. Beth Alanis Glucose [Mass/Vol] 104 mg/dL Normal 74-106 [facility] Comment on above: Performed By: #### B EXCHANGE ADMINISTRATOR, BMP, HSTROPN #### [facility] [address] [address] [address] Beth Alanis Potassium [Moles/Vol] 4.0 mmol/L Normal 3.5-5.1 [facility] Comment on above: Performed By: #### B EXCHANGE ADMINISTRATOR, BMP, HSTROPN #### [facility] [address] [address] [address] Beth Alanis Sodium [Moles/Vol] 138 mmol/L Normal 136-145 [facility] Comment on above: Performed By: #### B EXCHANGE ADMINISTRATOR, BMP, HSTROPN #### [facility] [address] [place] [address] Dr. Beth Alanis Urea nitrogen [Mass/Vol] 12.0 mg/dL Normal 7.0-18.0 [facility] Comment on above: Performed By: #### B EXCHANGE ADMINISTRATOR, BMP, HSTROPN #### [facility] [address] [address] [address] Beth Alanis Urea nitrogen/Creatinine [Mass ratio] 12.2 mg/mg Normal [facility] Comment on above: Performed By: #### B EXCHANGE ADMINISTRATOR, BMP, HSTROPN #### [facility] [address] [place] [address] Dr. Beth Alanis TROPONIN, HIGH SENSITIVITYon 10-23-2021 HSTROP 5.6 pg/mL Normal 4.0-51.3 [facility] Comment on above: Result Comment: CUT- OFF POINTS HAVE BEEN ESTABLISHED BASED ON THE FOURTH UNIVERSAL DEFINITIONS OF MYOCARDIAL INFARCTION. THE UPPER REFERENCE LIMIT (URL) OF TROPONIN, DEFINED THE 99TH PERCENTILE OF cTnI DISTRIBUTION IN A REFERENCE POPULATION, HAS BEEN CONFIRMED THE DECISION THRESHOLD FOR NC DIAGNOSIS. Performed By: #### B EXCHANGE ADMINISTRATOR, BMP, HSTROPN #### [facility] [address] [place] [address] Dr. Beth Alanis XR CHEST 1 Von [...] CHELY KEITH Date: 2021-10-23 16:45 Normal [facility] INSULINon 09-05-2021 Insulin 26.0 uIU/mL Critically high 2.6-24.9 [facility] Comment on above: Performed By: #### 4 [id number] #### [facility] [address] [place] [address] Dr. Beth Alanis OCC BLD IMMUNO SCREENon 08-26 OCCULT BLOOD Negative Normal NEGATIVE [facility] Comment on above: Performed By: #### O BSCRN #### [facility] [address] [place] [address] Dr. Beth Alanis CBC AUTO DIFFon 09-04-2021 BASO # 0.0 103/ul Normal 0.0-0.1 [facility] Comment on above: Performed By: #### C BC #### [facility] [address] [place] [address] Dr. Beth Alanis Basophils/100 WBC (Bld) 0.4 % Normal 0.2-2.0 [facility] Comment on above: Performed By: #### C BC #### [facility] [address] [place] [address] Dr. Beth Alanis EO # 0.1 103/ul Normal 0.0-0.7 [facility] Comment on above: Performed By: #### C BC #### [facility] [address] [place] [address] Dr. Beth Alanis Eosinophils/100 WBC (Bld) 1.2 % Normal 0.9-7.0 [facility] Comment on above: Performed By: #### C BC #### [facility] [address] [place] [address] Dr. Beth Alanis Erythrocyte distribution width (RBC) [Ratio] 14.1 % Normal 11.0-15.0 [facility] Comment on above: Performed By: #### C BC #### [facility] [address] [place] [address] Dr. Beth Alanis Hematocrit (Bld) [Volume fraction] 44.1 % Normal 36.0-48.0 [facility] Comment on above: Performed By: #### C BC #### [facility] [address] [place] [address] Dr. Beth Alanis Hemoglobin (Bld) [Mass/Vol] 14.6 g/dL Normal 12.0-16.0 [facility] Comment on above: Performed By: #### C BC #### [facility] [address] [place] [address] Dr. Beth Alanis IG # 0.03 10e3/ul Normal 0.00-0.03 [facility] Comment on above: Performed By: #### C BC #### [facility] [address] [place] [address] Dr. Beth Alanis IG % 0.3 % Normal 0.0-0.5 [facility] Comment on above: Performed By: #### C BC #### [facility] [address] [place] [address] Dr. Beth Alanis LYMPH # 1.9 103/ul Normal 1.2-3.8 [facility] Comment on above: Performed By: #### C BC #### [facility] [address] [place] [address] Dr. Beth Alanis Lymphocytes/100 WBC (Bld) 17.8 % Critically low 20.5-60.0 [facility] Comment on above: Performed By: #### C BC #### [facility] [address] [place] [address] Dr. Beth Alanis MANUAL DIFF REQ NO Normal [facility] Comment on above: Performed By: #### C BC #### [facility] [address] [place] [address] Dr. Beth Alanis MCH (RBC) [Entitic mass] 30.3 pg Normal 26.7-34.0 [facility] Comment on above: Performed By: #### C BC #### [facility] [address] [address] [address] Beth Alanis MCHC (RBC) [Mass/Vol] 33.1 g/dL Normal 29.9-35.2 [facility] Comment on above: Performed By: #### C BC #### [facility] [address] [place], [place] [id number] Dr. Beth Alanis MCV (RBC) [Entitic vol] 91.5 fL Normal 81.0-99.0 [facility] Comment on above: Performed By: #### C BC #### [facility] [address] [place] [address] Dr. Beth Alanis MONO # 0.9 103/ul Critically high 0.3-0.[address] [facility] Comment on above: Performed By: #### C BC #### [facility] [address] [place] [address] Dr. Beth Alanis Monocytes/100 WBC (Bld) 8.9 % Normal 1.7-12.0 [facility] Comment on above: Performed By: #### C BC #### [facility] [address] [place] [address] Dr. Beth Alanis NEUT # 7.6 103/ul Critically high 1.4-6.[address] [facility] Comment on above: Performed By: #### C BC #### [facility] [address] [place], [place] [id number] Dr. Beth Alanis Neutrophils/100 WBC (Bld) 71.4 % Normal 43.0-75.0 [facility] Comment on above: Performed By: #### C BC #### [facility] [address] [place], [place] [id number] Dr. Beth Alanis Platelet mean volume (Bld) [Entitic vol] 9.7 fL Normal 9.5-13.5 [facility] Comment on above: Performed By: #### C BC #### [facility] [address] [place] [address] Dr. Beth Alanis PLT 377 103/ul Normal 150-450 [facility] Comment on above: Performed By: #### C BC #### [facility] [address] [place], [place] [id number] Dr. Beth Alanis RBC 4.82 106/ul Normal 4.20-5.40 [facility] Comment on above: Performed By: #### C BC #### [facility] [address] [place] [address] Dr. Beth Alanis WBC 10.6 103/ul Normal 4.0-11.0 [facility] Comment on above: Performed By: #### C BC #### [facility] [address] [place] [address] Dr. Beth Alanis FREE THYROXINE INDEX T7on FTI 3.20 Normal 1.30-4.50 [facility] Comment on above: Performed By: #### C MP, T7, LIPID, TSH #### [facility] [address] [place] [address] Dr. Beth Alanis T3U 33.0 % Normal 30.0-39.0 [facility] Comment on above: Performed By: #### C MP, T7, LIPID, TSH #### [facility] [address] [place] [address] Dr. Beth Alanis T4 [Mass/Vol] 9.70 ug/dL Normal 4.80-13.90 [facility] Comment on above: Performed By: #### C MP, T7, LIPID, TSH #### [facility] [address] [place] [address] Dr. Beth Alanis GLYCOHEMOGLOBIN A1Con 2021 ADA RECOMMENDATION SEE BELOW Normal [facility] Comment on above: Result Comment: ADA RECOMMENDED LIMIT 4.0 - 6.0 ADA THERAPEUTIC TARGET < 7.0 ACTION SUGGESTED > 7.0 Performed By: #### 4 [id number] #### [facility] [address] [place] [address] Dr. Beth Alanis Glucose [Mass/Vol] 114 mg/dL Normal [facility] Comment on above: Performed By: #### 4 [id number] #### [facility] [address] [place] [address] Dr. Beth Alanis HbA1c (Bld) [Mass fraction] 5.6 % Normal 4.5-6.2 [facility] Comment on above: Performed By: #### 4 [id number] #### [facility] [address] [address] [address] Beth Alanis IRONon 09-04-2021 Iron [Mass/Vol] 73.0 ug/dL Normal 50.0-170.0 [facility] Comment on above: Performed By: #### 4 [id number] #### [facility] [address] [address] [address] Beth Alanis LIPID PROFILEon 09-04-2021 CHOL-HDL RATIO NORM SEE BELOW Normal [facility] Comment on above: Result Comment: 3.3 - 4.4 LOW RISK 4.4 - 7.1 AVERAGE RISK 7.1 - 11.0 MODERATE RISK >11.0 HIGH RISK Performed By: #### 4 [id number] #### [facility] [address] [place] [address] Dr. Beth Alanis Cholesterol [Mass/Vol] 229 mg/dL Critically high <=200 [facility] Comment on above: Performed By: #### 4 [id number] #### [facility] [address] [address] [address] Beth Alanis Cholesterol in HDL [Mass/Vol] 49 mg/dL Normal 40-60 [facility] Comment on above: Performed By: #### 4 [id number] #### [facility] [address] [address] [address] Beth Alanis Cholesterol in LDL [Mass/Vol] 160.2 mg/dL Normal [facility] Comment on above: Performed By: #### 4 [id number] #### [facility] [address] [address] [address] Beth Alanis Cholesterol.total/C holesterol in HDL [Mass ratio] 4.7 {ratio} Normal [facility] Comment on above: Performed By: #### 4 [id number] #### [facility] [address] [address] [address] Beth Alanis HDL NORMAL > or = 60 mg/dl - LO W CARDIOVASCULAR RISK <40 mg/dl - HIGH CARDIOVASCULAR RISK Normal [facility] Comment on above: Performed By: #### 4 [id number] #### [facility] [address] [place] [address] Dr. Beth Alanis LDL CALC NORMAL SEE BELOW Normal [facility] Comment on above: Result Comment: <100 mg/dl OPTIMAL 100 - 129 mg/dl NEAR OR ABOVE OPTIMAL 130 - 159 mg/dl BORDERLINE HIGH 160 - 189 mg/dl HIGH >190 mg/dl VERY HIGH Performed By: #### 4 [id number] #### [facility] [address] [place] [address] Dr. Beth Alanis Triglyceride [Mass/Vol] 99 mg/dL Normal <=150 [facility] Comment on above: Performed By: #### 4 [id number] #### [facility] [address] [place] [address] Dr. Beth Alanis VLDL CALC 19.8 mg/dL Normal [facility] Comment on above: Performed By: #### 4 [id number] #### [facility] [address] [place] [address] Dr. Beth Alanis PROF 14(COMP METB)on 022 Albumin [Mass/Vol] 3.6 g/dL Normal 3.4-5.0 [facility] Comment on above: Performed By: #### 4 [id number] #### [facility] [address] [place] [address] Dr. Beth Alanis Albumin/Globulin [Mass ratio] 0.8 {ratio} Normal [facility] Comment on above: Performed By: #### 4 [id number] #### [facility] [address] [place] [address] Dr. Beth Alanis ALP [Catalytic activity/Vol] 107 U/L Normal 46-116 [facility] Comment on above: Performed By: #### 4 [id number] #### [facility] [address] [place] [address] Dr. Beth Alansi ALT [Catalytic activity/Vol] 31 U/L Normal 14-59 [facility] Comment on above: Performed By: #### 4 [id number] #### [facility] [address] [place] [address] Dr. Beth Alanis Anion gap [Moles/Vol] 14.4 mmol/L Normal [facility] Comment on above: Performed By: #### 4 [id number] #### [facility] [address] [address] [address] Beth Alanis AST [Catalytic activity/Vol] 11 U/L Critically low 15-37 [facility] Comment on above: Performed By: #### 4 [id number] #### [facility] [address] [address] [address] Beth Alanis Bilirubin [Mass/Vol] 0.4 mg/dL Normal 0.2-1.0 [facility] Comment on above: Performed By: #### 4 [id number] #### [facility] [address] [place] [address] Dr. Beth Alanis Calcium [Mass/Vol] 9.0 mg/dL Normal 8.5-10.1 [facility] Comment on above: Performed By: #### 4 [id number] #### [facility] [address] [place] [address] Dr. Beth Alanis Chloride [Moles/Vol] 103 mmol/L Normal 98-107 [facility] Comment on above: Performed By: #### 4 [id number] #### [facility] [address] [place] [address] Dr. Beth Alanis CO2 [Moles/Vol] 24.7 mmol/L Normal 21.0-32.0 [facility] Comment on above: Performed By: #### 4 [id number] #### [facility] [address] [place] [address] Dr. Beth Alanis Creatinine [Mass/Vol] 0.92 mg/dL Normal 0.55-1.02 [facility] Comment on above: Performed By: #### 4 [id number] #### [facility] [address] [place] [address] Dr. Beth Alanis EGFR-AF MOROCCAN >60 Normal >=60 [facility] Comment on above: Performed By: #### 4 [id number] #### [facility] [address] [place] [address] Dr. Beth Alanis EGFR-NON AF MOROCCAN >60 Normal >=60 [facility] Comment on above: Performed By: #### 4 [id number] #### [facility] [address] [place] [address] Dr. Beth Alanis Globulin (S) [Mass/Vol] 4.5 g/dL Normal [facility] Comment on above: Performed By: #### 4 [id number] #### [facility] [address] [place] [address] Dr. Beth Alanis Glucose [Mass/Vol] 100 mg/dL Normal 74-106 [facility] Comment on above: Performed By: #### 4 [id number] #### [facility] [address] [place] [address] Dr. Beth Alanis Potassium [Moles/Vol] 4.1 mmol/L Normal 3.5-5.1 [facility] Comment on above: Performed By: #### 4 [id number] #### [facility] [address] [place] [address] Dr. Beth Alanis Protein [Mass/Vol] 8.1 g/dL Normal 6.4-8.2 [facility] Comment on above: Performed By: #### 4 [id number] #### [facility] [address] [place] [address] Dr. Beth Alanis Sodium [Moles/Vol] 138 mmol/L Normal 136-145 [facility] Comment on above: Performed By: #### 4 [id number] #### [facility] [address] [place] [address] Dr. Beth Alanis Urea nitrogen [Mass/Vol] 27.0 mg/dL Critically high 7.0-18.0 [facility] Comment on above: Performed By: #### 4 [id number] #### [facility] [address] [place] [address] Dr. Beth Alanis Urea nitrogen/Creatinine [Mass ratio] 29.3 mg/mg Normal [facility] Comment on above: Performed By: #### 4 [id number] #### [facility] [address] [place] [address] Dr. Beth Alanis TSHon 09-04-2021 TSH 3.758 uIU/mL Critically high 0.358-3.740 [facility] Comment on above: Performed By: #### C MP, T7, LIPID, TSH #### [facility] [address] [place], [place] [address] Dr. Beth Alanis TSH RANGE SEE BELOW Normal [facility] Comment on above: Result Comment: <0.3 4 UIU/ml HYPERTHYROID 0.34-5.60 UIU/ml EUTHYROID >5.60 UIU/ml HYPOTHYROID Performed By: #### C MP, T7, LIPID, TSH #### [facility] [address] [place], [place] [address] Dr. Beth Alanis CTA HEART-CORONARY/ ARTERY B YPASS GRAFT WITH 3DPPon 04-26-2021 CTA HEART-CORONARY/ ARTERY BYPASS GRAFT WITH 3DPP [facility] Department of Radiology [address] [place] [id number] Patient Name: SHAILESH BLAKE : 1970 Sex: F Age: Race: White Pt. Location: [facility] Patient Status: D Ordered Date: 03/19/2021 8:55:00 AM Completed Date: 04/26/2021 11:45 AM Requesting Provider: MELANIA ABARCA Attending Provider: MELANIA ABARCA Report Copy To: Signs & Symptoms: R94.39 Abnormal result of other cardiovascular function study History: Order in [facility] [phone] Is patient on meds for HTN or [...] achievable Electronically signed: Corazon Carter. Transcribed by: [email or web address], User Resident: Electronically Signed by: CORAZON CARTER @ 04/30/2021 09:22 AM Normal [facility] Vital Signs Date Time Vital Sign Value Performing Clinician Facility 05-19-2023 15:45-0500 Body height 168.91 cm Asif Cox Other [facility] Other 05-19-2023 15:45-0500 Body mass index (BMI) [Ratio] 54.69 kg/m2 Asif Cox Other [facility] Other 05-19-2023 15:45-0500 Body weight 156.04 kg Asif Cox Other [facility] Other 05-19-2023 15:45-0500 SaO2% (BldA) [Mass fraction] 97 % Asif Cox Other [facility] Other 04-09-2023 10:30-0500 Body height 168.91 cm Destini Kilgore Other [facility] Other 04-09-2023 10:30-0500 Body mass index (BMI) [Ratio] 54.3 kg/m2 Destini Kilgore Other [facility] Other 04-09-2023 10:30-0500 Body weight 154.95 kg Destini Kilgore Other [facility] Other 04-09-2023 10:30-0500 Diastolic blood pressure 87 mm[Hg] Destini Kilgore Other [facility] Other 04-09-2023 10:30-0500 SaO2% (BldA) [Mass fraction] 97 % Destini Kilgore Other [facility] Other 04-09-2023 10:30-0500 Systolic blood pressure 123 mm[Hg] Destini Kilgore Other [facility] Other 01-23-2023 16:00-0400 Body height 168.91 cm Asifjohn Cox Other [facility] Other 01-23-2023 16:00-0400 Body mass index (BMI) [Ratio] 53.25 kg/m2 Asif Cox Other [facility] Other 01-23-2023 16:00-0400 Body weight 151.96 kg Asif Cox Other [facility] Other 01-23-2023 16:00-0400 Diastolic blood pressure 90 mm[Hg] Asif Cox Other [facility] Other 01-23-2023 16:00-0400 SaO2% (BldA) [Mass fraction] 97 % Asifjohn Cox Other [facility] Other 01-23-2023 16:00-0400 Systolic blood pressure 140 mm[Hg] Asif Cox Other [facility] Other 01-09-2023 10:30-0400 Body height 168.91 cm Destini Kilgore Other [facility] Other 01-09-2023 10:30-0400 Body mass index (BMI) [Ratio] 53.25 kg/m2 Destini Kilgore Other [facility] Other 01-09-2023 10:30-0400 Body weight 151.96 kg Destini Kilgore Other [facility] Other 01-09-2023 10:30-0400 Diastolic blood pressure 86 mm[Hg] Destini Kilgore Other [facility] Other 01-09-2023 10:30-0400 Systolic blood pressure 124 mm[Hg] Destini Kilgore Other [facility] Other 11-07-2022 13:15-0400 Body height 168.91 cm Asif Brooke Other [facility] Other 11-07-2022 13:15-0400 Body mass index (BMI) [Ratio] 55.32 kg/m2 Asifjohn Cox Other [facility] Other 11-07-2022 13:15-0400 Body weight 157.85 kg Asifjohn Cox Other [facility] Other 11-07-2022 13:15-0400 SaO2% (BldA) [Mass fraction] 95 % Asifjohn Cox Other [facility] Other 10-31-2022 16:00-0400 Body height 168.91 cm Asif Cox Other [facility] Other 10-31-2022 16:00-0400 Body mass index (BMI) [Ratio] 54.62 kg/m2 Asifjohn Cox Other [facility] Other 10-31-2022 16:00-0400 Body weight 155.86 kg Asif Cox Other [facility] Other 10-31-2022 16:00-0400 Diastolic blood pressure 84 mm[Hg] Asif Cox Other [facility] Other 10-31-2022 16:00-0400 SaO2% (BldA) [Mass fraction] 97 % Asif Cox Other [facility] Other 10-31-2022 16:00-0400 Systolic blood pressure 126 mm[Hg] Asif Brooke Other [facility] Other 08-07-2022 17:30-0400 Body height 168.91 cm Asif Cox Other [facility] Other 08-07-2022 17:30-0400 Body mass index (BMI) [Ratio] 54.53 kg/m2 Asif Cox Other [facility] Other 08-07-2022 17:30-0400 Body weight 155.58 kg Asif Cox Other [facility] Other 08-07-2022 17:30-0400 Diastolic blood pressure 96 mm[Hg] Asif Cox Other [facility] [employer] Other 08-07-2022 17:30-0400 SaO2% (BldA) [Mass fraction] 99 % Asif Cox Other [facility] Other 08-07-2022 17:30-0400 Systolic blood pressure 142 mm[Hg] Asif Cox Other [facility] Other 07-24-2022 10:04-0400 Diastolic blood pressure 76 mm[Hg] EXCHANGE ADMINISTRATOR-C Alyssapollo Mortensenmer Work Phone: [facility] 07-24-2022 10:04-0400 Heart rate 74 /min EXCHANGE ADMINISTRATOR-C Alyssa Maxwell Work Phone: [facility] 07-24-2022 10:04-0400 Respiratory rate 18 /min EXCHANGE ADMINISTRATOR-C Alyssa Maxwell Work Phone: [facility] 07-24-2022 10:04-0400 SaO2% (BldA) [Mass fraction] 96 % EXCHANGE ADMINISTRATOR-C Alyssa Maxwell Work Phone: [facility] 07-24-2022 10:04-0400 Systolic blood pressure 117 mm[Hg] EXCHANGE ADMINISTRATOR-C Alyssa Maxwell Work Phone: [facility] 07-24-2022 09:23-0400 Inhaled oxygen flow rate 3 L/min EXCHANGE ADMINISTRATOR-C Alyssa Maxwell Work Phone: [facility] 07-24-2022 08:46-0400 Body height 172.72 cm EXCHANGE ADMINISTRATOR-C Alyssa Maxwell Work Phone: [facility] 07-24-2022 08:46-0400 Body weight 136.07 kg EXCHANGE ADMINISTRATOR-C Alyssa Maxwell Work Phone: [facility] 07-08-2022 15:45-0400 Body height 168.91 cm Asif Garciaky Other [facility] Other 07-08-2022 15:45-0400 Body mass index (BMI) [Ratio] 56.59 kg/m2 Asif Cox Other [facility] Other 07-08-2022 15:45-0400 Body weight 161.48 kg Asif Cox Other [facility] Other 07-08-2022 15:45-0400 Diastolic blood pressure 80 mm[Hg] Asif Brooke Other [facility] Other 07-08-2022 15:45-0400 SaO2% (BldA) [Mass fraction] 97 % Asif Brooke Other [facility] Other 07-08-2022 15:45-0400 Systolic blood pressure 120 mm[Hg] Asif Brooke Other [facility] Other 05-17-2022 10:15-0500 Body height 168.91 cm Asif Cox Other [facility] Other 05-17-2022 10:15-0500 Body mass index (BMI) [Ratio] 55.93 kg/m2 Asif Cox Other [facility] Other 05-17-2022 10:15-0500 Body weight 159.58 kg Asif Brooke Other [facility] Other 05-17-2022 10:15-0500 Diastolic blood pressure 86 mm[Hg] Asif Brooke Other [facility] Other 05-17-2022 10:15-0500 SaO2% (BldA) [Mass fraction] 96 % Asif Brooke Other [facility] Other 05-17-2022 10:15-0500 Systolic blood pressure 132 mm[Hg] Asif Brooke Other [facility] Other 04-05-2022 13:15-0500 Body height 168.91 cm Asif Cox Other [facility] Other 04-05-2022 13:15-0500 Body mass index (BMI) [Ratio] 55.64 kg/m2 Asif Cox Other [facility] Other 04-05-2022 13:15-0500 Body weight 158.76 kg Asif Cox Other [facility] Other 04-05-2022 13:15-0500 Diastolic blood pressure 80 mm[Hg] Asif Cox Other [facility] Other 04-05-2022 13:15-0500 SaO2% (BldA) [Mass fraction] 98 % Asif Cox Other [facility] Other 04-05-2022 13:15-0500 Systolic blood pressure 124 mm[Hg] Asif Cox Other [facility] Other 02-07-2022 14:45-0400 Body height 168.91 cm Asif Cox Other [facility] Other 02-07-2022 14:45-0400 Body mass index (BMI) [Ratio] 55.48 kg/m2 Asif Cox Other [facility] Other 02-07-2022 14:45-0400 Body weight 158.31 kg Asif Cox Other [facility] Other 02-07-2022 14:45-0400 Diastolic blood pressure 80 mm[Hg] Asif Cox Other [facility] Other 02-07-2022 14:45-0400 SaO2% (BldA) [Mass fraction] 94 % Asif Cox Other [facility] Other 02-07-2022 14:45-0400 Systolic blood pressure 126 mm[Hg] Asif Cox Other [facility] Other 01-18-2022 13:15-0400 Body height 168.91 cm Asif Cox Other [facility] Other 01-18-2022 13:15-0400 Body mass index (BMI) [Ratio] 54.84 kg/m2 Asif Cox Other [facility] Other 01-18-2022 13:15-0400 Body weight 156.49 kg Asif Cox Other [facility] Other 01-18-2022 13:15-0400 Diastolic blood pressure 98 mm[Hg] Asif Cox Other [facility] Other 01-18-2022 13:15-0400 SaO2% (BldA) [Mass fraction] 97 % Asif Cox Other [facility] Other 01-18-2022 13:15-0400 Systolic blood pressure 132 mm[Hg] Asif Cox Other [facility] Other 12-17-2021 11:45-0400 Body height 168.91 cm Asif Cox Other [facility] Other 12-17-2021 11:45-0400 Body mass index (BMI) [Ratio] 54.84 kg/m2 Asif Cox Other [facility] Other 12-17-2021 11:45-0400 Body weight 156.49 kg Asif Cox Other [facility] Other 12-17-2021 11:45-0400 Diastolic blood pressure 80 mm[Hg] Asif Cox Other [facility] Other 12-17-2021 11:45-0400 SaO2% (BldA) [Mass fraction] 97 % Asif Cox Other [facility] Other 12-17-2021 11:45-0400 Systolic blood pressure 110 mm[Hg] Asif Cox Other [facility] Other 10-15-2021 10:30-0400 Body height 168.91 cm Asif Cox Other [facility] Other 10-15-2021 10:30-0400 Body mass index (BMI) [Ratio] 54.3 kg/m2 Asif Cox Other [facility] Other 10-15-2021 10:30-0400 Body weight 154.95 kg Asif Cox Other [facility] Other 10-15-2021 10:30-0400 Diastolic blood pressure 70 mm[Hg] Asif Brooke Other [facility] Other 10-15-2021 10:30-0400 SaO2% (BldA) [Mass fraction] 98 % Asif Cox Other [facility] Other 10-15-2021 10:30-0400 Systolic blood pressure 110 mm[Hg] Asifjohn Cox Other [facility] Other 09-13-2021 10:45-0400 Body height 168.91 cm Destini Kilgore Other [facility] Other 09-13-2021 10:45-0400 Body mass index (BMI) [Ratio] 54.21 kg/m2 Destini Kilgore Other [facility] Other 09-13-2021 10:45-0400 Body weight 154.68 kg Destini Kilgore Other [facility] Other 09-13-2021 10:45-0400 Diastolic blood pressure 74 mm[Hg] Destini Kilgore Other [facility] Other 09-13-2021 10:45-0400 Systolic blood pressure 124 mm[Hg] Destini Kilgore Other [facility] Other 08-02-2021 15:30-0400 Body height 168.91 cm Asif Brooke Other [facility] Other 08-02-2021 15:30-0400 Body mass index (BMI) [Ratio] 52.71 kg/m2 Asifjohn Cox Other [facility] Other 08-02-2021 15:30-0400 Body weight 150.41 kg Asif Cox Other [facility] Other 08-02-2021 15:30-0400 Diastolic blood pressure 82 mm[Hg] Asif Brooke Other [facility] Other 08-02-2021 15:30-0400 SaO2% (BldA) [Mass fraction] 97 % Asif Cox Other [facility] Other 08-02-2021 15:30-0400 Systolic blood pressure 134 mm[Hg] Asif Brooke Other [facility] Other 07-09-2021 16:00-0400 Body height 168.91 cm Asif Cox Other [facility] Other 07-09-2021 16:00-0400 Diastolic blood pressure 80 mm[Hg] Asif Brooke Other [facility] Other 07-09-2021 16:00-0400 SaO2% (BldA) [Mass fraction] 99 % Asif Cox Other [facility] Other 07-09-2021 16:00-0400 Systolic blood pressure 130 mm[Hg] Asif Cox Other [facility] Other 07-04-2021 15:30-0500 Body height 168.91 cm Mellissa Strange Other [facility] Other 07-04-2021 15:30-0500 Body mass index (BMI) [Ratio] 52.78 kg/m2 Mellissa Strange Other [facility] Other 07-04-2021 15:30-0500 Body weight 150.6 kg Mellissa Strange Other [facility] Other 07-04-2021 15:30-0500 Diastolic blood pressure 96 mm[Hg] Mellissa Strange Other [facility] Other 07-04-2021 15:30-0500 Systolic blood pressure 137 mm[Hg] Mellissa Strange Other [facility] Other 06-07-2021 11:15-0500 Body height 168.91 cm Destini Kilgore Other [facility] Other 06-07-2021 11:15-0500 Body mass index (BMI) [Ratio] 52.48 kg/m2 Destini Kilgore Other [facility] Other 06-07-2021 11:15-0500 Body weight 149.73 kg Destini Kilgore Other [facility] Other 06-07-2021 11:15-0500 Respiratory rate 18 /min Destini Kilgore Other [facility] Other 04-30-2021 15:00-0500 Body height 168.91 cm Asif Cox Other [facility] Other 04-30-2021 15:00-0500 Body mass index (BMI) [Ratio] 51.98 kg/m2 Asif Cox Other [facility] Other 04-30-2021 15:00-0500 Body weight 148.33 kg Asif oCx Other [facility] Other 04-30-2021 15:00-0500 Diastolic blood pressure 74 mm[Hg] Asif Cox Other [facility] Other 04-30-2021 15:00-0500 Systolic blood pressure 116 mm[Hg] Asfi Brooke Other [facility] Other 04-05-2021 17:00-0500 Body height 168.91 cm Asif Brooke Other [facility] Other 04-05-2021 17:00-0500 Body mass index (BMI) [Ratio] 50.93 kg/m2 Asif Brooke Other [facility] Other 04-05-2021 17:00-0500 Body weight 145.33 kg Asif Cox Other [facility] Other 03-19-2021 12:15-0500 Body height 168.91 cm Asif Cox Other [facility] Other 03-19-2021 12:15-0500 Body mass index (BMI) [Ratio] 49.92 kg/m2 Asif Cox Other [facility] Other 03-19-2021 12:15-0500 Body weight 142.43 kg Asif Cox Other [facility] Other 03-19-2021 12:15-0500 Diastolic blood pressure 80 mm[Hg] Asif Brooke Other [facility] Other 03-19-2021 12:15-0500 Systolic blood pressure 120 mm[Hg] Asif Brooke Other [facility] Other 02-26-2021 14:30-0400 Body height 168.91 cm Asif Cox Other [facility] Other 02-26-2021 14:30-0400 Body mass index (BMI) [Ratio] 50.84 kg/m2 Asif Cox Other [facility] Other 02-26-2021 14:30-0400 Body weight 145.06 kg Asif Cox Other [facility] Other 02-26-2021 14:30-0400 Diastolic blood pressure 70 mm[Hg] Asif Cox Other [facility] Other 02-26-2021 14:30-0400 SaO2% (BldA) [Mass fraction] 98 % Asif Cox Other [facility] Other 02-26-2021 14:30-0400 Systolic blood pressure 118 mm[Hg] Asif Cox Other [facility] Other Encounters Encounter Date Encounter Type Care Provider Facility Start: 05-28-2023 ambulatory WATSON Wilson ty:LINDA Rogers Start: 05-19-2023 End: 05-19-2023 ambulatory Asif Cox Facility:[facility] Start: 05-19-2023 End: 05-19-2023 Patient encounter procedure EXCHANGE ADMINISTRATOR-C Alyssa Arreola Work Phone: [facility] Work Phone: Start: 05-19-2023 End: 05-19-2023 ambulatory EXCHANGE ADMINISTRATOR-C Alyssa Arreola Work Phone: [facility] Work Phone: Start: 05-19-2023 Office outpatient visit 25 minutes Asif Cox [facility] Start: 04-16-2023 End: 04-16-2023 ambulatory Asif Cox Other [facility] Other Start: 04-16-2023 Telephone encounter Asif Cox [facility] Start: 04-09-2023 Office outpatient visit 25 minutes Destini Kilgore [facility] Start: 04-09-2023 End: 04-09-2023 ambulatory EXCHANGE ADMINISTRATOR-C Alyssapollo Mortensenmer Work Phone: [facility] Work Phone: Start: 04-09-2023 End: 04-09-2023 Patient encounter procedure EXCHANGE ADMINISTRATOR-C Alyssapollo Mortensenmer Work Phone: [facility] Work Phone: Start: 04-09-2023 End: 04-09-2023 Patient encounter procedure EXCHANGE ADMINISTRATOR-C Alyssapollo Mortensenmer Work Phone: [facility] Work Phone: Start: 02-25-2023 ambulatory Alexey Butts acility:[facility] Start: 02-25-2023 Registered Recurring EXCHANGE ADMINISTRATOR-C Alanis Naylormer Work Phone: [facility] Start: 01-23-2023 End: 01-23-2023 ambulatory Asif Cox Other [facility] Other Start: 01-23-2023 Patient encounter procedure Asif Cox [facility] Start: 01-09-2023 End: 01-09-2023 ambulatory Destini Kilgore Other [facility] Other Start: 01-09-2023 Office outpatient visit 25 minutes Destini Kilgore [facility] Start: 12-17-2022 End: 12-18-2022 ambulatory Dioni Flores Facility:[facility] Zayra batres Start: 11-07-2022 End: 11-07-2022 ambulatory Asif Cox Other [facility] Other Start: 11-07-2022 Office outpatient visit 25 minutes Asif Cox [facility] Start: 10-31-2022 End: 10-31-[address] [facility] [employer] Other Start: 10-31-2022 Office outpatient visit 25 minutes Asif Cox [facility] Start: 10-08-2022 ambulatory WATSON CARDENAS Facility : [facility] Start: 08-26-2022 End: 08-27-[address] MARTI JEREZ . Facility:[facility] Start: 08-07-2022 End: 08-07-2022 ambulatory Asif Cox Other [facility] [employer] Other Start: 08-07-2022 Office outpatient visit 15 minutes Asif Cox [facility] Start: 08-05-2022 End: 08-05-[address] MARTI JEREZ . Facility:[facility] Start: 07-24-2022 (PROC) PROCEDURE Asif [facility] Start: 07-24-2022 End: 07-24-2022 Admission to same day surgery center EXCHANGE ADMINISTRATOR-C Alyssa Arreola Work Phone: [facility] Work Phone: Start: 07-24-2022 End: 07-24-2022 ambulatory EXCHANGE ADMINISTRATOR-C Alyssa Arreola Work Phone: [facility] Work Phone: Start: 07-14-2022 End: 07-14-2022 ambulatory FRANNIE DIAB . Facility:[facility] Start: 07-08-2022 Office outpatient visit 25 minutes Asif Cox [facility] Start: 07-08-2022 End: 07-08-2022 ambulatory Asif Cox Facility:[facility] Start: 07-08-2022 End: 07-08-2022 ambulatory EXCHANGE ADMINISTRATOR-C Alyssa Lesly Maxwell Work Phone: [facility] Work Phone: Start: 07-08-2022 End: 07-08-2022 Patient encounter procedure EXCHANGE ADMINISTRATOR-C Alyssa Arreola [facility]: [facility] Work Phone: Start: 05-20-2022 End: 05-20-[address] MARTI JEREZ . Facility:[facility] Start: 05-17-2022 End: 05-17-2022 ambulatory Asif Brooke Other [facility] Other Start: 05-17-2022 Office outpatient visit 25 minutes Asif Brooke [facility] Start: 05-01-2022 End: 05-25-2022 ambulatory ASIF BROOKE Facility:[facility] Start: 04-05-2022 Office outpatient visit 25 minutes Asif Brooke [facility] Start: 04-05-2022 End: 04-05-2022 ambulatory EXCHANGE ADMINISTRATOR-C Alyssa Arreola Work Phone: [facility] Other Start: 04-05-2022 End: 04-05-2022 Patient encounter procedure EXCHANGE ADMINISTRATOR-C Alyssa Arreola [facility]: [facility] Start: 03-18-2022 End: 03-19-2022 ambulatory ALYSSA ARREOLA Facility:[facility] Start: 02-07-2022 End: 02-07-2022 ambulatory Asif Brooke Other [facility] Other Start: 02-07-2022 Patient encounter procedure Asif Brooke [facility] Start: 01-18-2022 End: 01-18-2022 ambulatory Asif Brooke Other [facility] Other Start: 01-18-2022 Office outpatient visit 25 minutes Asif Brooke [facility] Start: 12-24-2021 End: 12-24-2021 Patient encounter procedure EXCHANGE ADMINISTRATOR-C Alyssa [facility]ola [facility] Start: 12-17-2021 End: 12-17-2021 ambulatory Asif Brooke Other [facility] Other Start: 12-17-2021 Office outpatient visit 25 minutes Asif Garciaky [facility] Start: 11-26-2021 ambulatory ALYSSA ARREOLA Facility: [facility] Start: 11-22-2021 End: 11-23-[address] MARTI JEREZ . Facility:[facility] Start: 11-21-2021 End: 11-22-2021 ambulatory SUSIE ESTRADA Facility:[facility] Start: 10-23-2021 End: 10-23-[address] NUBIA WHYTE . Facility:[facility] Start: 10-16-2021 End: 11-23-2021 ambulatory ALYSSA ARREOLA Facility:[facility] Start: 10-15-2021 End: 10-15-2021 ambulatory Asif Garciaky Other [facility] Other Start: 10-15-2021 Office outpatient visit 25 minutes Asif Garciaky [facility] Start: 10-15-2021 End: 10-15-2021 Patient encounter procedure EXCHANGE ADMINISTRATOR-C Alyssa Arreola Work Phone: [facility] Start: 10-12-[address] MARTI JEREZ . Facili ty:[facility] Start: 10-09-2021 End: 10-09-2021 Lab Drop off Virgilio Rhoades [facility] Start: 10-09-2021 End: 10-09-2021 Patient encounter procedure Cipriano Romero Jr. [facility] Start: 09-19-2021 End: 09-19-2021 ambulatory Destini Kilgore Other [facility] Other Start: 09-19-2021 Telephone encounter Destini Kilgore [facility] Start: 09-13-2021 End: 09-13-2021 ambulatory Destini Kilgore Other [facility] Other Start: 09-13-2021 Office outpatient visit 15 minutes Destini Kilgore [facility] Start: 09-06-2021 End: 09-06-2021 ambulatory ALYSSA ARREOLA Facility:[facility] Start: 09-04-2021 End: 09-05-2021 ambulatory ALYSSA ARREOLA Facility:[facility] Start: 08-15-2021 (Procedure) Short Asif [facility] Start: 08-15-2021 End: 08-15-2021 ambulatory Asif Cox Other [facility] Other Start: 08-09-2021 End: 08-09-2021 Lab Drop off WATSON CARDENAS [facility] Start: 08-09-2021 End: 08-09-2021 Patient encounter procedure WATSON CARDENAS [facility] [place] Start: 08-02-2021 End: 08-02-2021 ambulatory Asif Cox Other [facility] Other Start: 08-02-2021 Office outpatient visit 25 minutes Asif Brooke [facility] Start: 07-09-2021 End: 07-09-2021 ambulatory Mellissa Strange Other [facility] Other Start: 07-09-2021 Office outpatient visit 25 minutes Asif Brooke [facility] Start: 07-09-2021 Telephone encounter Mellissa Strange [facility] Start: 07-04-2021 End: 07-04-2021 ambulatory Mellissa Hykes Other [facility] Other Start: 07-04-2021 Office outpatient new 30 minutes Mellissa Hykes [facility] Start: 06-07-2021 End: 06-07-2021 ambulatory Destini Kilgore Other [facility] Other Start: 06-07-2021 Office outpatient visit 25 minutes Destini Kilgore [facility] Start: 05-08-2021 (Procedure) Short Asif Cox [facility] Start: 05-08-2021 End: 05-08-2021 ambulatory Asifjohn Cox Other [facility] Other Start: 04-30-2021 End: 04-30-2021 ambulatory Asifjohn Cox Other [facility] Other Start: 04-30-2021 Office outpatient visit 25 minutes Asif Brooke [facility] Start: 04-26-2021 End: 04-27-2021 ambulatory EHAB A [facility] Facility:[facility] Start: 04-19-2021 (Procedure) Short Asif Cox [facility] Start: 04-19-2021 End: 04-19-2021 ambulatory Asifjohn Cox Other [facility] Other Start: 04-05-2021 End: 04-05-2021 ambulatory Asifjohn Cox Other [facility] Other Start: 04-05-2021 Office outpatient visit 25 minutes Asif Brooke [facility] Start: 03-29-2021 (Procedure) Enzo Cox [facility] Start: 03-29-2021 End: 03-29-2021 ambulatory Asif Brooke Other [facility] Other Start: 03-19-2021 End: 03-19-2021 ambulatory Asif Brooke Other [facility] Other Start: 03-19-2021 Office outpatient visit 25 minutes Asif Brooke [facility] Start: 03-07-2021 (Procedure) Short Asif Cox [facility] Start: 03-07-2021 End: 03-07-2021 ambulatory Asif Cox Other [facility] Other Start: 02-26-2021 End: 02-26-2021 ambulatory Asif Cox Other [facility] Other Start: 02-26-2021 Office outpatient visit 25 minutes Asif Cox [facility] Procedures Date Procedure Procedure Detail Performing Clinician Start: 05-19-2023 X-ray of lumbar spin e, four views EXCHANGE ADMINISTRATOR-C Alyssa Maxwell Work Phone: Start: 04-09-2023 Plain X-ray of left hip EXCHANGE ADMINISTRATOR-C Alyssa Maxwell Work Phone: Start: 07-24-2022 [employer] F[employer] ency (Bilateral) EXCHANGE ADMINISTRATOR-C Alyssa Maxwell Work Phone: Start: 07-08-2022 Plain X-ray of right shoulder EXCHANGE ADMINISTRATOR-C Alyssa Maxwell Work Phone: Start: 04-05-2022 X-ray of cervical spine EXCHANGE ADMINISTRATOR-C Alyssa Maxwell Work Phone: Start: 12-24-2021 MR thoracic spine wo con EXCHANGE ADMINISTRATOR-C Alyssa Maxwell Work Phone: Start: 10-15-2021 Radiography of thora cic spine EXCHANGE ADMINISTRATOR-C Alyssa Maxwell Work Phone: Start: 02-20-2021 Cystoscopy WATSON ROBERTSON Start: 01-04-2020 Cystoscopy WATSON ROBERTSON Start: 06-02-2018 cysto/ botox WATSON ROBERTSON Start: 01-28-2017 cystoscopy WATSON ROBERTSON back surgery WATSON CARDENAS carpel tunnel release SAGE CARDENAS cesearian section WATSON ROBERTSON Cholecystectomy WATSON CALDERON D&C WATSON CARDENAS H/O: tubal ligation WATSON CARDENAS Plan of Treatment Date Care Activity Detail Author Start: 07-24-2022 [facility] Patient Education Brooke Non Diagnostic Blo ck [facility] Work Phone: Patient referral [facility] Work Phone: Immunizations Immunization Date Immunization Notes Care Provider Fa cility 2020 SARS-CoV-2 (COVID-19 ) mRNA BNT-162b2 vax WATSON CARDENAS [facility] 12-02-2020 SARS-CoV-2 (COVID-19 ) mRNA BNT-162b2 vax WATSON CARDENAS [facility] NEGATED: Highlighted row has not occurred!07-31-2020 influenza virus vaccine, unspecified formulation WATSON CARDENAS [facility] Payers Date Payer Category Payer Self-pay [id number] 2022 Medicaid [id number] 2022 Self-pay [id number] 1969 Unknown [id number] 2.16.8 40.1.707642.3.579.2.647 1969 Unknown [id number] 2.16.84 0.1.319777.3.579.2.593 1969 Unknown [id number] 2.16.84 0.1.232814.3.579.2.593 1969 Unknown [id number] 2.16.84 0.1.598172.3.579.2.593 1969 Unknown [id number] 2.16.84 0.1.314455.3.579.2.593 1969 Unknown [id number] 2.16.84 0.1.490825.3.579.2.593 1969 Unknown [id number] 2.16.84 0.1.661285.3.579.2.593 1969 Unknown [id number] 2.16.84 0.1.729376.3.579.2.593 1969 Unknown [id number] 2.16.84 0.1.959209.3.579.2.593 1969 Unknown [id number] 2.16.84 0.1.124810.3.579.2.593 1969 Unknown [id number] 2.16.84 0.1.380874.3.579.2.593 1969 Unknown [id number] 2.16.84 0.1.229111.3.579.2.593 1969 Unknown [id number] 2.16.84 0.1.472755.3.579.2.593 1969 Unknown [id number] 2.16.84 0.1.040890.3.579.2.593 1969 Unknown [id number] 2.16.84 0.1.725698.3.579.2.593 1969 Unknown [id number] 2.16.8 40.1.657293.3.579.2.727 1969 Unknown [id number] 2.16.8 40.1.062954.3.579.2.727 1959 Unknown [id number] Unknown [id number] 2.1 6.840.1.659815.19 Unknown [facility]/BS [id number] [place] [employer]/BS [id number] Unknown [id number] 2.16.8 40.1.700731.3.579.2.531 Unknown [id number] 2.16.8 40.1.656137.3.579.2.531 Unknown [id number] 2.16.8 40.1.909145.3.579.2.531 Unknown [id number] 2.16.8 40.1.219757.3.579.2.531 Unknown [id number] 2.16.8 40.1.779483.3.579.2.531 Unknown [id number] 2.16.8 40.1.555724.3.579.2.531 Social History Date Type Detail Facility Start: 12-29-2020 Tobacco smoking status Never s moked tobacco (finding) [facility] Other Sex Assigned At Female [facility] Other Start: 08-29-2021 End: 07-24-2022 Tobacco smoking status OKIS Ex-smoker (finding) [facility] Start: 1970 Sex Assigned At Female [facility] Goals Date Patient Goal Desired Activity /State Clinical Notes 03-19-2021 to 05-19-2023 Note Date & Type Note Facility 05-19-2023 Evaluation note Encounter Date Diagnosis Assessment Notes Apr, Lumbosacral spondylosis without myelopathy (ICD-10 - M47.817) 52 year old female here for follow up to discuss chronic pain. She voices complaints of low back and left hip pain with intermittent radiation down the anterior aspect of the left thigh to the knee. She feels pain is negatively impacting her daily activities and sleeping pattern. Anatomy of spine discussed in detail with patient in regards to patients condition. Patient is a candidate for a bilateral lumbar facet RFA under fluorscopic guidance. Risks and benefits of procedure explained to patient; patient verbalizes understanding. In the meantime, I will order an updated dynamic Xray of the lumbar spine to further evaluate her pain Apr, Chronic pain (ICD-10 - G89.29) Follow up after procedure Apr, Sacroiliitis (ICD-10 - M46.1) Stable. Patient feels sacral pain is tolerable at this time. Apr, Fibromyalgia (ICD-10 - M79.7) Continue medications as prescribed [facility] Other 12-13-2023 Evaluation note* Encounter Date Diagnosis Assessment Notes Treatment Notes Treatment Clinical Notes Mar, Myofascial muscle pain (ICD-10 - [...] is encouraged to take this as prescribed. Mar, Chronic pain (ICD-10 - G89.29) Patient has continued need for Gabapentin. OARRS report processed and reviewed and shows no violations. Gabapentin was refilled today, pill count was done. Patient is compliant with opioid medication. The patient denies any medication related side effects. UDS performed through [employer] today, will await confirmatory results. [facility] Other 09-28-2023 Evaluation note* Encounter Date Diagnosis [...] pain (ICD-10 - G89.29) Continue taking medications [facility] Other 09-14-2023 Evaluation note* Encounter Date Diagnosis [...] 400 mg, two to three times daily [facility] Other 07-13-2023 Evaluation note* Encounter Date Diagnosis [...] close to needing a refill of Gabapentin [facility] Other 07-06-2023 Evaluation note* Encounter Date Diagnosis [...] Stable. Oct, Sacroiliitis (ICD-10 - M46.1) Stable. [facility] Other 04-12-2023 Evaluation note* Encounter Date Diagnosis [...] - M46.1) Follow up in 4 weeks [facility] Other [facility]* Encounter Date Diagnosis Assessment Notes [...] Proceed with updated imaging of the shoulder. [facility] Other 01-20-2023 Evaluation note* Encounter Date Diagnosis [...] Proceed with updated imaging of the shoulder. [facility] Other 12-09-2022 Evaluation note* Encounter Date Diagnosis [...] schedule her next appointment to refill this. [facility] Other 10-13-2022 Evaluation note* Encounter Date Diagnosis [...] M47.817) Stable. Continue with current treatment plan. [facility] Other 09-23-2022 Evaluation note* Encounter Date Diagnosis [...] - G89.29) Continue taking Gabapentin as prescribed. [facility] Other 08-22-2022 Evaluation note* Encounter Date Diagnosis [...] - G89.29) Continue taking Gabapentin as prescribed. [facility] Other 06-20-2022 Evaluation note* Encounter Date Diagnosis [...] to use as tolerated for pain relief. [facility] Other 06-14-2022 Evaluation + Plan note Diagnostic Tests Pending * Urine Culture 10/09/21 [facility]05-19-20[facility] Evaluation note* Encounter Date Diagnosis Assessment Notes [...] time. August, Chronic pain (ICD-10 - G89.29) [facility] Other 04-14-2022 Evaluation + Plan note Diagnostic Tests Pending * Urine Culture 08/09/21 [facility]04-14-2022 Hospital Discharge instructions Patient Education 08/09/2021 11:27:41 [...] fried and sweet foods. General instructions Take doup-jpw-uvhbycr and prescription medicines only as told by [...] 02/08/2010 Document Revised: 08/05/2019 Document Reviewed: 04/30/2018 [employer] Patient Education 2020 [email or web address] Follow Up Care 07/11/2021 12:59:04 With:WATSON CARDENAS PA-C, URL Address: [address] [place] [address] [facility] [place] [address] [phone] When: Unknown [facility] Sue 04-07-2022 Evaluation note* Encounter Date Diagnosis [...] time. Jul, Chronic pain (ICD-10 - G89.29) [facility] Other 03-14-2022 Evaluation note* Encounter Date Diagnosis [...] (ICD-10 - G89.29) Continue medications as prescribed [facility] Other 03-09-2022 Evaluation note* Encounter Date Diagnosis Assessment Notes Treatment Notes Treatment Clinical Notes Jun, GERD (gastroesophageal reflux disease) (ICD-10 - K21.9) Jun, Irritable bowel syndrome with constipation (ICD-10 - K58.1) Jun, Morbid obesity (ICD-10 - E66.01) [facility] Other 02-10-2022 Evaluation note* Encounter Date Diagnosis [...] (ICD-10 - G89.29) Continue medications as prescribed [facility] Other 12-09-2021 Evaluation note* Encounter Date Diagnosis [...] (ICD-10 - G89.29) Continue medications as prescribed [facility] Other 11-22-2021 Evaluation note* Encounter Date Diagnosis [...] (ICD-10 - G89.29) Continue medications as prescribed [facility] Other Evaluation + Plan note No data available for this section [facility] Sue Evaluation noteNort [employer] Other Evaluation noteNo InformationN[facility] Other Evaluation noteNoput[facility] [employer] Other Evaluation noteNo assessment information available [facility] Work Phone: Hiswtla general Narrative - ReportedNoputnam [facility] hospital [employer] Other Hiscidn general Narrative - Reported* Type Description Date [...] History ENDOMETRIAL ABLATION Surgical History WISDOM TEETH [facility] Other [facility]qjei general Narrative - ReportedNoputnam [facility] hospital [employer] Other Hislbsl general Narrative - ReportedNoKeyCAPTCHA [employer] Other Hisyuqo general Narrative - Reported* Type Description Date [...] History WISDOM TEETH Hospitalization History see above [facility] Other Hospital Discharge instructions No data available for this section [facility] No data available for this section [facility] Rahul Summary Purpose Family History Relationship Condition Age at Onset Recorded Date/T susan father Malignant neoplasm of prostate Unknown brother Schizophrenia Unknown Not Specified Dementia Unknown Advance Directives Advance Directive Response Recorded Date/ Time Advance Directives No November 06 2:31pm Advance Directive Response Recorded Date/ Time Advance Directives No November 06 1:31pm Chief Complaint and Reason for Visit Chief Complaint M54.9 M47.814 Chief Complaint M54.2 Chief Complaint m25.511 Chief Complaint m25.511 Back Pain Chief Complaint m25.552 Chief Complaint BH Med Refill For Pain Control m25.552 m47.817 Additional Source Comments INFORMATION SOURCE (unrecogn ized section and content) DATE CREATED AUTHOR 05/03/2021 [facility] DATE CREATED AUTHOR AUTHOR'S ORGANIZ ATION [facility]20[facility] DATE CREATED AUTHOR AUTHOR'S ORGANIZ ATION [facility]20[facility] DATE CREATED AUTHOR AUTHOR'S ORGANIZ ATION 05/20/[address] [facility] Care Team (unrecognized sect ion and content) Team Status: Active Member Role Status Dates Alyssa Arreola NP-Jess Primary Care Provider Active Team Status: Active Member Role Status Dates Alyssa Arreola NP-Jess Primary Care Provider Active Start: February 25, 2023 Alexey Maki MD Attending Provider Active Start: February 25, 2023 Team Status: Inactive Member Role Status Dates Destini Kilgore NP Attending Provider Active Start: April 09, 2023 End: April 09, 2023 Team Status: Inactive Member Role Status Dates MATTHIAS Altamirano Primary Care Provider Active Start: April 09, 2023 End: April 09, 2023 Destini Kilgore NP Attending Provider Active Start: April 09, 2023 End: April 09, 2023 Team Status: Inactive Member Role Status Dates MATTHIAS Altamirano Primary Care Provider Active Start: May 19, 2023 End: May 19, 2023 Asif Cox MD Attending Provider Active Sta rt: May 19, 2023 End: May 19, 2023 Team Status: Inactive Member Role Status Dates MATTHIAS Altamirano Primary Care Provider Active Asif Cox MD [...] refillTRIGGER POINT INJSMED REFILL FOR PAIN CONTROLNo Informationincrease buttock radiating to leg pain Goals (unrecognized section and content) Goals may [...] BE BASED ON THE PRIMARY CLINICAL RECORDS. [employer] provides no warranty or guarantee of the accuracy or completeness of information in this document.
== END 2023-05-20 15:26 | disposition home or self-care (01) ==
LOC: MAMMO 15:25
PROVIDERS: PCP Nurse Practitioner Family; Visit Provider Nurse Practitioner Family
DX: Z12.31 Encounter for screening mammogram for malignant neoplasm of breast (principal)
CPT/HCPCS: 77063; 77067

== ENCOUNTER 2023-06-30 15:08 | Outpatient (OUT) | payer MEDICAID, SELFPAY ==
[2023-06-30 17:45] LABS: Bilirubin Urine NEGATIVE (NEGATIVE); Blood Urine NEGATIVE (NEGATIVE); Clarity Urine CLEAR (CLEAR); Color Urine YELLOW (YELLOW); Glucose Urine UA NEGATIVE (NEGATIVE); Ketones Urine NEGATIVE (NEGATIVE); Leukocyte Esterase Urine TRACE (NEGATIVE); Nitrite Urine NEGATIVE (NEGATIVE); Protein Urine TRACE mg/dL (NEG/TRACE); Specific Gravity Urine >=1.030 (1.005-1.025); Urobilinogen Urine 0.2 EU/dL (0.2-1.0); pH Urine 5.5 (5.0-9.0)
[2023-06-30 18:41] LABS: Bacteria Urine SMALL #/HPF (NONE SEEN); Cast Seen? NONE SEEN #/LPF (NONE SEEN); Crystals Seen? None Seen #/HPF (None Seen); Mucus Urine SMALL (NONE SEEN); Squamous Epithelial Cell Urine MODERATE #/LPF (NONE/RARE); Urine Culture Indicated ALREADY ORDERED
== END 2023-06-30 15:09 | disposition home or self-care (01) ==
LOC: LAB 15:09
PROVIDERS: PCP Nurse Practitioner Family; Visit Provider Nurse Practitioner Family
DX: R10.9 Unspecified abdominal pain (principal)
CPT/HCPCS: 81001; 87086; 87150; 87186

== ENCOUNTER 2023-07-16 01:15 | Emergency (ER) | payer MEDICAID, SELFPAY ==
[2023-07-16 01:20] VITALS: BP 151/99; PULSE 112; RESP 22; TEMP 36.6; O2SAT 96; BMI 48.7
--- OUTSIDE RECORDS SUMMARY | 2023-07-16 01:23 | XMS_ITS | CCD ---
Author Organization [facility] Care Team Providers Care Shank Sander Name Role Phone ELTAHAWY, EHAB A Admitting Unavailable ELTAHAWY, EHAB A Attending Unavailable MAXWELL, ALYSSA Primary Care Unavailable MAXWELL, ALYSSA Referring Unavailable ALYSSA ARREOLA Primary Care Physician Asif Cox Unavailable Destini Kilgore Unavailable Mellissa Strange Unavailable MATTHIAS Arreola Alyssa Lesly Primary Care Provider MD Asif Cox Attending Provider ADONAY Arreola-Jess Alyssa Lesly Primary Care Provider MD Asif Cox Attending Provider ADONAY Arreola-Jess Alyssa Lesly Primary Care Provider MD Asif Cox Attending Provider MAXWELL, ALYSSA Primary Care Unavailable MAXWELL, ALYSSA Admitting Unavailable MAXWELL, ALYSSA Attending Unavailable SOLITARIO ., DR KIDD Attending Unavailable SOLITARIO ., DR KIDD Consulting Unavailable MAXWELL, ALYSSA Primary Care Unavailable SOLITARIO ., DR KIDD Admitting Unavailable SOLITARIO ., DR KIDD Attending Unavailable SOLITARIO ., DR KIDD Consulting Unavailable MAXWELL, ALYSSA Primary Care Unavailable SOLITARIO ., DR KIDD Admitting Unavailable ZIEBER, DR JACINTA Yu Consulting Unavailable MAXWELL, ALYSSA Admitting Unavailable [...] Consulting Unavailable MAXWELL, ALYSSA Primary Care Unavailable STRAWEDER, CHELY Consulting Unavailable MAXWELL, ALYSSA Primary Care Unavailable JACKIE, ASIF Attending Unavailable JACKIE, ASIF Admitting Unavailable JACKIE, ASIF Admitting Unavailable MAXWELL, ALYSSA Primary Care Unavailable JACKIE, ASIF Attending Unavailable SOLITARIO ., DR KIDD Consulting Unavailable SOLITARIO ., DR KIDD Admitting Unavailable SOLITARIO ., DR KIDD Attending Unavailable MAXWELL, ALYSSA Primary Care Unavailable ZIEBER, DR JACINTA Yu Consulting Unavailable MAXWELL, ALYSSA Primary Care Unavailable MAXWELL, ALYSSA Admitting Unavailable MAXWELL, ALYSSA Attending Unavailable MAXWELL, ALYSSA Consulting Unavailable SPROUT, SUSIE Admitting Unavailable SPROUT, SUSIE Attending Unavailable SPROUT, SUSIE Consulting Unavailable MAXWELL, ALYSSA Primary Care Unavailable SOLITARIO ., DR KIDD Admitting Unavailable SOLITARIO ., DR KIDD Attending Unavailable SOLITARIO ., DR KIDD Consulting Unavailable MAXWELL, ALYSSA Primary Care Unavailable SOLITARIO ., DR KIDD Admitting Unavailable MAXWELL, ALYSSA Primary Care Unavailable SOLITARIO ., DR KIDD Attending Unavailable Maxwell, ADONAY-Jess Alyssa Lesly Primary Care Provider ADONAY Kilgore Attending Provider MATTHIAS Arreola Alyssa Lesly Primary Care Provider MD Alexey Maki Attending Provider [phone] MD Asif Cox Attending Provider [phone] Dioni Flores Primary Care Physician [phone] MATTHIAS Arreola Alyssa Lesly Primary Care Provider MD Alexey Maki Attending Provider [phone] Asif Cox Admitting Unavailable Maxwell, Alyssa Lesly Primary Care Unavailable Jackie, Asif S Attending Unavailable Alexey Maki Admitting Unavailab le Alexey Maki Attending Unavailab le Maxwell, Alyssa Lesly Primary Care Unavailable Maxwell, Alyssa Lesly Primary Care Unavailable Jackie, Asif S Admitting Unavailable Jackie, Asif S Attending Unavailable Jackie, Asif S Admitting Unavailable Maxwell, Alyssa Lesly Primary Care Unavailable Jackie, Asif S Attending Unavailable Kilgore, Destini Admitting Unavailable Kilgore, Destini Attending Unavailable Maxwell, Alyssa Lesly Primary Care Unavailable Jackie, Asif S Attending Unavailable Maxwell, Alyssa Lesly Primary Care Unavailable Jackie, Asif S Admitting Unavailable Jackie, Asif S Admitting Unavailable Maxwell, Alyssa Lesly Primary Care Unavailable Jackie, Asif S Attending Unavailable CORDOBA, Hermilo R Attending Unavailable CORDOBA, Hermilo Yu Attending Unavailable Hermilo CORDOBA Referring Unavailable Hermilo CORDOBA Admitting Unavailable THERESAKAYY CALDERON Admitting Unavailable THERESA, KAYY Buenrostro Attending Unavailable Dioni Flores Attending Unavailable THERESAKAYY CALDERON Attending Unavailable THERESA, KAYY Buenrostro Attending Unavailable THERESAKAYY Attending Unavailable Allergies Allergy Classification Reported Allergen(s) Allergy Type Date of Onset Reaction(s) Facility (20 sources) Aspirin; Translations: [aspirin] Drug Allergy 2 Tremor (finding) [facility] Other (10 sources) Desonide; Translations: [desonide topical] Drug Allergy 3 Unknown [facility] (7 sources) Tape 1 Drug allergy Eruption of skin (disorder) [facility] Comment on above: adhesive (8 sources) Adhesive Tape; Translations: [adhesive tape] Allergy to substance 2 Rash [facility] (2 sources) Aspirin Drug Allergy 3 [facility] (1 source) Aspirin Drug Allergy 4 [facility] (1 source) Adhesive Tape; Translations: [Tape] Propensity to adverse reactions (disorder) [facility] Repository Medications Current Medications Medication Drug Class(es) Dates Sig (Normalized) Sig (Original) Aimovig SureClick 70 mg/mL subcutaneous solution (2 sources) Start: 08-09-2021 Aimnoahg SureClick 70 mg/mL subcutaneous solution 70 mg Start Date: 08/09/21 Status: Ordered Albuterol (3 sources) beta2-Adrenergic Agonist Start: 05-28-2023 Albuterol (Eqv-ProAir HFA) Inhalation, q6hr Start Date: 05/28/23 Status: Ordered atorvastatin (20 sources) HMG-CoA Reductase Inhibitor Start: 04-23-2019 atorvastatin Oral, Daily, Refills(s) 0 Start Date: 04/23/19 Status: Ordered take 1 tablet by elyssa th every twenty-four hours Lipitor 40 MG 1 tablet Orally Once a day Not-Taking/PRN benztropine mesylate 0.5 mg oral tablet (20 sources) Anticholinergic, Antihistamine Start: 05-28-2023 take 2 tablets by mouth once daily at bedtime benztropine 0.5 mg oral tablet mg tab(s), Oral, Once a day (at bedtime) Start Date: 05/28/23 Status: Ordered Start: 03-06-2021 take 0.5 mg by mouth [...] sources) Atypical Antipsychotic Start: 03-06-2021 take 1 mg by mouth once daily Rexulti 4 mg oral tablet mg tab(s), Oral, Daily Start Date: 05/28/23 Status: Ordered busPIRone hydrochloride 10 mg oral tablet (3 sources) Start: 05-28-2023 take 1 mg by mouth twice daily busPIRone 10 mg Tab mg tab(s), Oral, BID Start Date: 05/28/23 Status: Ordered cephalexin 500 mg oral capsule (2 sources) Cephalosporin Antibacterial Start: 10-09-2021 End: 10-16-2021 take 1 capsule by mouth every twelve hours Keflex 500 mg Cap 500 mg = 1 cap(s), Oral, q12hr, X 7 day(s), # 14 cap(s), Refills(s) 0, Pharmacy: [facility]/pharmacy #[id number], 173, cm, 08/09/21 11:09:00 EDT, Height/Length [...] Twice a day Active Daily Mohan - (13 sources) take 1 tablet by mouth once daily Daily Mohan - 1 tablet Orally Once a day Active diclofenac sodium 75 mg delayed release oral tablet (20 sources) Nonsteroidal Anti-inflammatory Drug Start: take 1 [...] Ordered 1 ml erenumab-aooe 70 mg/ml auto-injector (5 sources) Start: 08-09-2021 Aimovig SureCl ick 70 mg/mL subcutaneous solution 70 mg Start Date: 08/09/21 Status: Ordered famotidine 40 mg oral tablet (7 sources) Histamine-2 Receptor Antagonist Start: 03-06-2021 take 40 mg by mouth twice daily Famotidine Active 40 MG PO Twice daily March 06, 2021 12:00am fluticasone propionate 0.05 mg/actuat metered dose nasal spray (9 sources) Corticosteroid Start: 03-06-2021 Fluticasone Propionate Active 50 MCG INTRANASAL Daily March 06, 2021 12:00am Start: 05-03-2019 fluticasone 0. 05 mg/inh Nasal [place] Nasal, Daily, Refill(s) 0 Start Date: 05/03/19 Status: Ordered fluticasone 0.05 mg/inh Nasal [place] (5 sources) Start: 05-03-2019 fluticasone 0. 05 mg/inh Nasal [place] Nasal, Daily, Refill(s) 0 Start Date: 05/03/19 Status: Ordered gabapentin 400 mg oral capsule (20 sources) Anti-epileptic Agent Start: 05-28-2023 take 1 mg by mouth three times daily gabapentin 400 mg Cap mg cap(s), Oral, TID Start Date: 05/28/23 Status: Ordered Start: 08-29-2021 take 300 mg by mouth [...] g Orally Twice a day Active lamoTRIgine 100 mg oral tablet (20 sources) Mood Stabilizer, Anti-epileptic Agent Start: 05-28-2023 take 1 mg by mouth twice daily lamotrigine 100 mg Tab mg tab(s), Oral, BID Start Date: 05/28/23 Status: Ordered Start: 05-28-2023 take 1 mg by mouth twice daily lamotrigine 200 mg Tab mg tab(s), Oral, BID Start Date: 05/28/23 Status: Ordered Start: 03-06-2021 take 100 mg by mouth once colby y Lamotrigine Active 100 MG PO Daily March [...] a day for 30 day(s) Jun, Active meclizine hydrochloride 25 mg oral tablet (7 sources) Antiemetic Start: 05-28-2023 take 1 mg by mouth three times daily meclizine 25 mg Tab mg tab(s), Oral, TID Start Date: 05/28/23 Status: Ordered Start: 04-23-2019 meclizine TID, Refills(s) 0 Start Date: 04/23/19 Status: Ordered meloxicam (4 sources) Nonsteroidal Anti-inflammatory Drug Start: 04-23-2019 meloxicam Oral, Daily, Refills(s) 0 Start Date: 04/23/19 Status: Ordered methocarbamol 750 mg oral tablet (9 sources) Muscle Relaxant take 1 tablet by mouth every four hours Methocarbamol 750 MG 1 tablet Orally every 4 hrs Active methylPREDNISolone 4 mg oral tablet (5 sources) Corticosteroid Start: 04-09-2023 Medrol (Sebastian) 4 MG as directed Orally for daily dose take half with breakfast half with dinner for 6 days Mar, Active naratriptan 2.5 mg oral tablet (13 sources) Serotonin-1b and Serotonin-1d Receptor Agonist take 1 tablet by mouth every twenty-fou r hours Naratriptan HCl 2.5 MG 1 tablet Orally Once a day Active omeprazole 40 mg delayed release oral capsule (16 sources) Proton Pump Inhibitor Start: 05-28-2023 take 1 mg by mouth once daily omeprazole 40 mg Cap-DR mg cap(s), Oral, Daily Start Date: 05/28/23 Status: Ordered oxyCODONE hydrochloride 5 mg oral capsule (4 sources) Opioid Agonist Start: 02-28-2020 take 1 mg by mouth every six hours oxyCODONE 5 mg Cap mg cap(s), Oral, q6hr, Refills(s) 0 Start Date: 02/28/20 Status: Ordered pantoprazole 40 mg delayed release oral tablet (11 sources) Proton Pump Inhibitor Start: 03-06-2021 take 40 mg by mouth twice daily Pantoprazole Active 40 MG PO Twice daily March 06, 2021 12:00am Start: 04-23-2019 pantoprazole D tamyy, Refills(s) 0 Start Date: 04/23/19 Status: Ordered rizatriptan 10 mg disintegrating oral tablet (20 sources) Serotonin-1b and Serotonin-1d Receptor Agonist Start: 08-29-2021 Rizatriptan Active 10 MG PO As Directed August 28, 2021 11:00pm take 1 tablet by elyssa th every twenty-four hours Maxalt 10 MG 1 tablet Orally Once a day Not-Taking/PRN simvastatin 40 mg oral tablet (16 sources) HMG-CoA Reductase Inhibitor Start: 05-28-2023 take 1 mg by mouth once daily in the evening simvastatin 40 mg Tab mg tab(s), Oral, qPM Start Date: 05/28/23 Status: Ordered spironolactone 50 mg oral tablet (20 sources) Aldosterone Antagonist Start: 05-28-2023 take 1 mg by mouth twice daily spironolactone 50 mg Tab mg tab(s), Oral, BID Start Date: 05/28/23 Status: Ordered Start: 03-06-2021 take 50 mg by mouth once daily Spironolactone Active 50 MG PO Daily March 06, 2021 12:00am sucralfate 1000 mg oral tablet (7 sources) Aluminum Complex Start: 03-06-2021 take 1 g by mouth four times daily Sucralfate Active 1 GM PO Four times daily March 06, 2021 12:00am sulfamethoxazole 800 mg / trimethoprim 160 mg oral tablet (2 sources) Dihydrofolate Reductase Inhibitor Antibacterial, Sulfonamide Antimicrobial Start: 08-09-2021 End: 08-16-2021 Bactrim DS 800 mg-160 mg Tab 1 tab(s), Oral, BID for 7 day(s), 14 tab(s), Refill(s) 0, [facility]/pharmacy #[id number], 173, cm, 08/09/21 11:09:00 EDT, Height/Length Dosing, 142, kg, 08/09/21 11:09:00 EDT, Weight Dosing Start Date: 08/09/21 Stop Date: 08/16/21 Status: Ordered SZSTANDARD1-Topical Cream Baclofen 2%, Cyclobenzaprine HCL 2%, Diclofenac Na 3%, Gabapentin 6%, Lidocaine HCL 2% Cream (18 sources) Start: 10-15-2021 SZSTANDARD1-Topical Cream Baclofen 2%, Cyclobenzaprine HCL 2%, Diclofenac Na 3%, Gabapentin 6%, Lidocaine HCL 2% Cream 1-2 grams TOPICALLY APPLY 1-2 GRAMS FOR 2-3 MINUTES EVERY 6-8 HOURS for 30 days G89.29 Chronic pain Sep, Active TENS Unit (20 sources) Start: 05-17-2022 TENS Unit Use as directed. Apr, Active [...] tartrate 4 mg extended release oral capsule (17 sources) Cholinergic Muscarinic Antagonist Start: 03-06-2021 End: 05-22-2024 take 1 capsule by mouth once daily tolterodine 4 mg Cap-ER 4 mg = 1 cap(s), Oral, Daily, X 30 day(s), # 30 cap(s), Refills(s) 11, Pharmacy: [facility]/pharmacy #[id number], 173, cm, 05/28/23 16:07:00 EST, Height/Length Dosing, 142, kg, 05/28/23 16:07:00 EST, Weight Dosing Start Date: 05/28/23 Stop Date: 05/22/24 Status: Ordered Start: 03-06-2021 End: 08-29-2021 Tolterodine Discontinued 2 M G PO As Directed March 06, 2021 12:00am August 29, 2021 9:31am 24 hr venlafaxine 150 mg extended release oral capsule (20 sources) Serotonin and Norepinephrine Reuptake Inhibitor Start: 05-28-2023 take 1 mg by mouth once daily venlafaxine 150 mg Cap-ER mg cap(s), Oral, Daily Start Date: 05/28/23 Status: Ordered Start: 03-06-2021 take 225 mg by mouth once colby y Venlafaxine Active 225 MG PO Daily March [...] mg / caffeine 40 mg oral tablet (7 sources) Barbiturate, Central Nervous System Stimulant, Methylxanthine Start: 03-06-2021 End: 08-29-2021 Eehpdugmlt-Ylliuzqoalehl-Maq f Discontinued 1 TAB PO As Directed March 06, 2021 12:00am August 29, 2021 9:35am amitriptyline hydrochloride 150 mg oral tablet (20 sources) Tricyclic Antidepressant take 1 tablet by mouth every twenty-fo ur hours Amitriptyline HCl 150 MG 1 tablet at bedtime Orally Once a day Not-Taking/PRN azithromycin 250 mg oral tablet (7 sources) Macrolide Antimicrobial Start: 03-06-2021 End: 08-15-2021 Azithromycin Discontinued MG TABLET March 06, 2021 12:00am August 15, 2021 8:58am docusate sodium 50 mg / sennosides, [facility] 8.6 mg oral tablet (20 sources) Start: 07-09-2021 take 8.6-50 mg by mouth once daily at bedtime Senokot S 8.6-50 MG 2 tab(s) Orally qhs for 30 day(s) Jun, Not-Taking/PRN Emgality (18 sources) Emgality Not-Maicol ing/PRN Emgality Not-Maicol ing Emgality Active furosemide 40 mg oral tablet (7 sources) Loop Diuretic Start: 03-06-2021 End: 06-04-2023 take 40 mg by mouth twice daily Furosemide Discontinued 40 MG PO Twice daily March 06, 2021 12:00am June 04, 2023 9:57am nitrofurantoin, macrocrystals 25 mg / nitrofurantoin, monohydrate 75 mg oral capsule (9 sources) Nitrofuran Antibacterial take 1 capsule by mouth every twenty-four hours Macrobid 100 MG 1 capsule with food Orally Once a day Not-Taking PARoxetine hydrochloride 20 mg oral tablet (20 sources) Serotonin Reuptake Inhibitor Start: 03-06-2021 End: 08-29-2021 Paroxetine Hcl Discontinued 20 MG PO As Directed March 06, 2021 12:00am August 29, 2021 9:35am Start: 04-23-2019 paroxetine Ora l, Refills(s) 0 Start Date: 04/23/19 Status: Ordered take 2 tablets by mo ut every twenty-four hours Paxil 30 MG 2 tablets Orally Once a day Not-Taking take 2 tablets by mo uth every twenty-four hours microencapsulated potassium chloride 20 meq extended release oral tablet (7 sources) Start: 03-06-2021 End: 08-29-2021 Potassium Chloride [...] day Not-Taking/PRN topiramate 100 mg oral tablet (20 sources) Start: 03-06-2021 End: 08-29-2021 Topiramate Discontinued [...] Date Documented Da te Episodic/Chronic Abdominal pain (7 sources) Lower abdominal pain; Translations: [Lower abdominal pain, unspecified] 07-18-2021 Episodic Anxiety disorders (1 source) Anxiety disorder, unspecified; Translations: [ANXIETY DISORDER UNSPECIFIED] Onset: 2 Chronic Disorders of lipid metabolism (20 sources) Hyperlipidemia; Translations: [Dyslipidemia] Onset: 2 04-23-2019 Chronic Epilepsy; convulsions (7 sources) Seizure 04-23-2019 Episodic Esophageal disorders (20 [...] 04-23-2019 Chronic Other aftercare (1 source) Other inter[employer] customer service (current) drug therapy; Translations: [OTH CUSTODIAL CURRENT DRUG THERAPY] Onset: 3 Episodic Other connective tissue disease (20 sources) Fibromyalgia; Translations: [Fibromyalgia] 04-23-2019 Episodic Other connective tissue disease (5 sources) Myalgia, other site Episodic Other connective tissue disease (6 sources) Fibromyalgia; Translations: [FIBROMYALGIA] Onset: 3 Episodic Other diseases of bladder and urethra (1 source) Detrusor overactivity; Translations: [Overactive bladder] Onset: 4 Chronic Other diseases of bladder and urethra (3 sources) Overactive bladder 05-28-2023 Chronic Other female genital disorders (1 source) Polyp [...] unspecified] 07-18-2021 Episodic Other nervous system disorders (7 sources) Neuropathy 04-23-2019 Chronic Other nervous system [...] chronic pain; Translations: [Other chronic pain] Onset: 4 Chronic Other non-traumatic joint disorders (4 sources) Shoulder joint pain; Translations: [Pain in right shoulder] Episodic Other non-traumatic joint disorders (11 sources) Pain in right shoulder; Translations: [Right shoulder pain] Episodic Other non-traumatic joint disorders (2 sources) Pain in right knee Episodic Other non-traumatic joint disorders (1 source) Pain in left hip Episodic Other nutritional; endocrine; and metabolic disorders (7 sources) Body mass index 40+ - severely [...] right shoulder] Onset: 3 Urinary tract infections (9 sources) Urinary tract infectious disease; Translations: [Urinary [...] Test Name Value Interpretation Reference Range Facility Consent for Procedure/Surger yon 07-15-2023 Consent for Procedure/Surgery [id number]# 1.00TIFF [facility] Consent for Treatmenton 06-26 Consent for Treatment [id number] .00TIFF [facility] IntraOperative Documentson 0 07-15-2023 IntraOperative Documents [id number]# 1.00TIFF Y[facility] Main OR Intraoperative Recor don 07-15-2023 Main OR Intraoperative Record IntraOp Document Type FTURO Summary Primary Physician: Hermilo CORDOBA MD Finalized Date/Time: 07/15/23 08:54:30 Pt. Name: SHAILESH BLAKE /Sex: 1970 Female Med Rec #: [id number] Physician: Hermilo CORDOBA MD Financial #: [id number] Pt. Type: O Room/Bed: / Admit/Disch: 07/15/23 07:29:47 - Institution: Case Times FTURO Entry 1 Patient Times In Room 07/15/23 08:40:00 Out Room 07/15/23 08:56:00 Procedure Times Start 07/15/23 08:42:00 Stop 07/15/23 08:51:00 Anesthesia Times Last Modified By: Sushma MASON, TRAVONOR, Mary Beth 07/15/23 08:53:50 Case Attendance FTURO Entry 1 Entry 2 Entry 3 Case Attendee Hermilo CORDOBA MD RN, CNOR, Dakota HERNANDEZ, Lissa Clinton Role Performed Surgeon - Primary Scrub - Primary Scrub - Primary Time In 07/15/23 08:40:00 07/15/23 08:40:00 07/15/23 08:40:00 Time Out 07/15/23 08:56:00 07/15/23 08:56:00 07/15/23 08:56:00 Procedure CYSTOSCOPY LOCAL WITH CYSTOSCOPY LOCAL WITH CYSTOSCOPY LOCAL WITH URETHRAL DILATION(.) URETHRAL DILATION(.) URETHRAL DILATION(.) Comments Last Modified By: Susham RN, CNOR, Sushma RN, TRAVONOR, Sushma RN, TRAVONOR, Mary Beth 07/15/23 Mary Beth 07/15/23 Mary Beth 07/15/23 08:53:51 08:53:51 08:53:51 Surgical Procedures FTURO Entry 1 Procedure Description Procedure CYSTOSCOPY LOCAL WITH Modifiers . URETHRAL DILATION Surgeon Description CYSTO 100 UNITS BOTOX Primary Procedure Yes Primary Surgeon Hermilo CORDOBA MD Start 07/15/23 08:42:00 Stop 07/15/23 08:51:00 Anesthesia Type Local Surgical Service Urology Wound Class 2 - Clean-Contaminated Last Modified By: ASHKAN Ordaz RN, Ruthann 07/15/23 08:53:52 General Comments: botox 100 units [id number] lot [id number] General Case Data FTURO Pre-Care Text: Classifies surgical wound, implements aseptic technique, initiates traffic control Entry 1 Case Information OR URO 1 FT Case Level None Wound Class 2 - Clean-Contaminated Specialty Urology Preop Diagnosis MIXED INCONTINENCE, Postop Same As Preop No OVERACTIVE BLADDER Postop Diagnosis MIXED INCONTINENCE, Outcomes Met? Yes OVERACTIVE BLADDER, Last Modified By: ASHKAN Ordaz RN, Ruthann 07/15/23 08:50:26 Post-Care Text: The patient is free from signs and symptoms of infection EU IntraOp - FTURO Pre-Care Text: Implements protective measures prior to operative or invasive procedure, confirms identity before the operative or invasive procedure, verifies operative procedure, surgical site, and laterality Entry 1 EU Perioperative Protocols Procedure(s) CYSTOSCOPY LOCAL WITH Patient Identity Birthday, ID Band URETHRAL DILATION(.) Verified (select at Check, Patient least 2): Participation Consents / H and P HandP, Surgery/Procedure Operative Site N/A Verified Consent Marking Verified Surgical Site Yes Laterality Verified n/a Verified Procedure Verified Yes Correct Patient Yes Position Verified Availability Equipment, Medication Time Out Hermilo CORDOBA MD, Verified (If Participants Sushma MASON, TRAVONOR, Applicable) Dakota Clinton CST, Kimberly A Time Out Complete 07/15/23 08:41:00 Allergies Reviewed? Yes Allergies Reviewed Self/Patient With Body Position Low Lithotomy Prep Area perineal area Prep Agents Betadine Solution Skin. Condition Unable to Visualize Additional None Specimens Collected Vitals - EU Blood Pressure Pulse Respirations SPO2 EBL 0 IandO - EU Total Intake 0 mL Total Output 0 mL Outcomes Met? Yes Last Modified By: ASHKAN Ordaz RN, Ruthann 07/15/23 08:54:19 Post-Care Text: The patient is free from signs and symptoms of injury caused by extraneous objects Sign Out FTURO Entry 1 Before Patient Leaves OR Nurse verbally Yes Nurse verbally n/a confirms with the confirms with the team the name of team that the procedure(s) instrument, sponge, recorded and needle counts are correct (or N/A) Nurse verbally n/a Nurse verbally n/a confirms with the confirms with the team how the team whether there specimen is labeled are any equipment (including patient problems to be name), if applicable addressed Sign Out Complete 07/15/23 08:54:00 Last Modified By: ASHKAN Ordaz RN, Ruthann 07/15/23 08:54:29 Case Comments Finalized By: ASHKAN Ordaz RN, Ruthann Document Signatures Signed By: ASHKAN Ordaz RN, Ruthann 07/15/23 08:54 Normal [facility] Main OR Preoperative Recordo n 07-15-2023 Main OR Preoperative Record Holding Area Document Type FTURO Summary Primary Physician: Hermilo CORDOBA MD Finalized Date/Time: 07/15/23 07:47:45 Pt. Name: BLAKESHAILESH /Sex: 1970 Female Med Rec #: [id number] Physician: Hermilo CORDOBA MD Financial #: [id number] Pt. Type: O Room/Bed: / Admit/Disch: 07/15/23 07:29:47 - Institution: Case Times Holding FTURO Pre-Care Text: Verifies consent for planned procedure, identifies individual values and wishes concerning care, includes family members in perioperative teaching Secures patient's records' belongings, and valuables, maintains patient's dignity and privacy, and maintains patient confidentiality Entry 1 In Holding 07/15/23 07:43:00 Outcomes Met? Yes Last Modified By: Lissa Quezada RN 07/15/23 07:43:52 Post-Care Text: The patient participates in decisions affecting his or her perioperative plan of care The patient's right to privacy is maintained Surgery Checklist FTURO Entry 1 Patient Birthday, ID Band Procedure History and Physical, Identification: Check, Patient Verification: Surgical Consent, With Participation Patient NPO after Midnight: n/a Personal Items: Glasses Personal Items GLASSES Limitations: UP AD REGAN Comment: Complaints of Pain: No Pain Comment: 0/10 Skin Integrity Dry, Warm Vitals - EU Blood Pressure 148/82 Pulse 89 bpm Respirations 16 br/min SPO2 97 % Additional Other (See Comment) Specimens Comment URINE DIPSTICK Specimens Collected RN Reviewed Yes Last Modified By: Lissa Quezada RN 07/15/23 07:47:40 Finalized By: Lissa Quezada RN Document Signatures Signed By: Lissa Quezada RN 07/15/23 07:47 Normal [facility] Operative Reporton Operative Report Patient: SHAILESH BLAKE Age: 52 years Sex: Female : 1970 Associated Diagnoses: None Author: Hermilo CORDOBA MD Procedure Operative Information Details: Date/ Time: 07/15/2023 08:52:00. Pre-Op Dx: Incont/Urge - N39.41. Post-Op Dx: Same. Anesthesia Type: Local. Procedure: Local Cystoscopy with botox injection. Complications: None. Risks/Benefits/Inform ed Consent: Surgical risks, benefits, details of the procedure have been explained to the patient, Full informed consent has been obtained. Intraoperative Information Prepped: Patient is brought back to the endoscopy suite, Male Prep, Female Prep (Patient is placed in modified dorso/lithotomy position, 5 cc 2% Xylocaine Jelly is placed per Urethra, Straight cath inserted to obtain urine specimen, 60 cc 2% Xylocaine liquid inserted into bladder, 5 additional cc 2% Xylocaine Jelly is placed per Urethra, Patient in sitting position for 20 min dwell), Urine Specimen Results Negative for infection, Patient prepped in the usual fashion with Betadine solution, After waiting several minutes the Cystoscope is introduced. Procedure: The trigone was identified and evaluated, 20 template injection sites were identified, The bladder was instilled with enough saline to achieve adequate visualization for the injections, The needle was inserted approximately 2 mm into the detrusor spaced approximately 1 cm apart, A total of 20 injections with a 0.5 ml volume was delivered at each site for a total of 100 units of Botox. The Urethra is: Normal. The Bladder is: Trabeculated Mild (1), No bladder tumors. The ureteral orifices: Show efflux of clear urine. Devices Implanted: None. Removal: Cystoscope is removed, The patient tolerated it well. Postoperative Information Discharge: Patient is discharged home with antibiotic coverage, Follow up arranged. Normal [facility] Comment on above: Result Comment: Elec tronically Signed By: Hermilo CORDOBA MD R\.br\Date and Time Signed: 07/15/23 08:53 EDT Outpatient Surgery Discharge Instructionon 07-15-2023 Outpatient Surgery Discharge Instruction [id number]# 1.00TIFF [facility] Pre-Certification Formon Pre-Certification Form [id number]#1 .00TIFF [facility] C Urineon 07-10-2023 Bacteria identified Cx Nom (U) Microbiology PROCEDURE: Urine Culture [R1] SOURCE: U CleanCatch BODY SITE: COLLECTED DATE/TIME: 07/08/2023 14:30 EDT RECEIVED DATE/TIME: 07/08/2023 18:08 EDT START DATE/TIME: 07/08/2023 18:08 EDT FREE TEXT SOURCE: KAYY CARDENAS PA-C, PA-C, KAYY Buenrostro FINAL REPORTS Final Report [] Verified Date/Time: 07/10/2023 08:44 EDT 1,000 cfu/ml Mixed skin contaminants Performing Locations R1: This test was performed at: [facility], [address] [place] [address], [facility] , , [facility] Comment on above: Performed By: #### [id number] ####[place] [address] Pre-Certification Formon Pre-Certification Form [id number] .00TIFF [facility] Pre-Certification Formon Pre-Certification Form [id number]#1 .00TIFF [facility] Pre-Certification Form [id number]#1 .00TIFF [facility] Ambulatory Visit Summaryon 0 07-08-2023 Ambulatory Visit Summary SHAILESH BLAKE :1970 Visit Date:07/08/2023 Ambulatory Visit Instructions Your Diagnosis UTI (urinary tract infection) Your Care Team Attending Physician - ALEK JARAMILLO, Hermilo Yu Primary Care Physician - ALYSSA ARREOLA CNP This Is Your Medications List albuterol (Albuterol (Eqv-ProAir HFA)) benztropine (benztropine 0.5 mg oral tablet) brexpiprazole (Rexulti 4 mg oral tablet) busPIRone (busPIRone 10 mg Tab) erenumab (Aimovig SureClick 70 mg/mL subcutaneous solution) fluticasone nasal (fluticasone 0.05 mg/inh Nasal [place]) gabapentin (gabapentin 400 mg Cap) lamotrigine (lamotrigine 100 mg Tab) lamotrigine (lamotrigine 200 mg Tab) meclizine (meclizine 25 mg Tab) omeprazole (omeprazole 40 mg Cap-DR) simvastatin (simvastatin 40 mg Tab) spironolactone (spironolactone 50 mg Tab) tolterodine (tolterodine 4 mg Cap-ER) venlafaxine (venlafaxine 150 mg Cap-ER) Procedures Performed Cystoscopy (02/20/2021), Cystoscopy (01/04/2020), cysto/ botox (06/02/2018), cystoscopy (01/28/2017), back surgery, carpel tunnel release, cesearian section, Cholecystectomy, D&C, History of tubal ligation. What to do next Scheduled Follow-Up Appointments Friday 10:30 AM EDT With: Where: [facility] Friday 8:30 AM EDT With: Where: [facility] Friday 2:40 PM EDT With: KAYY CARDENAS PA-C Where: [facility] Pre-Certification Formon Pre-Certification Form [id number] .[facility] Formon Pre-Certification Form [id number]# 1.00TIFF Normal [facility] Pre-Certification Form [id number]#1 .00TIFF Normal [facility] Pre-Certification Formon Pre-Certification Form [id number] .00TIFF Normal [facility] Pre-Certification Formon Pre-Certification Form [id number]#1 .00TIFF [facility] Urology Office/Clinic Noteon 05-30-2023 Urology Office/Clinic Note Chief Complaint OV due to stress incontinence HPI Staff Shailesh is a 52 y.o. female here for stress incontinence. Previous Dx: incomplete bladder emptying, microscopic hematuria, nocturia, urge incontinence, UTI. S/P cystoscopy done on 02/20/21. PVR today 0ml. Dysuria: denies pain and burning Incomplete bladder emptying: denies Hematuria: denies visible blood Frequency: yes Urgency: yes Nocturia: 2x a night Stream: denies hesitancy Leaking: yes Post void dripping: sometimes Wearing pads/ Depends: denies Urge incontinence: yes Stress incontinence: yes Incontinence without Sensory Awareness: denies Abdominal pain: denies Flank pain: unsure Sexual complaints: _ History of Present Illness staff HPI reviewed and agree. Review of Systems PHQ Score Initial Depression Screen Score: 0 SCORE no fever, chills, malaise, myalgia. no rash/lesions. no chest pain, palpitations, or SOB. no abdominal pain, nausea, vomiting. no unilateral calf swelling, redness, pain Physical Exam Vitals & Measurements HT: 68 in HT: 173 cm WT: 142 kg WT: 312.4 lb BMI: 47.45 General: nontoxic, NAD Mouth: moist mucosa Lungs: normal respiratory effort Cardio: regular rate, good distal perfusion Abdomen: nondistended, no suprapubic distention or tenderness, no CVA tenderness Neurologic: Grossly normal Skin: No rashes or suspicious lesions Assessment/Plan Dr. Cordoba pt 1. Mixed incontinence (N39.46: Mixed incontinence) S/p Botox 100u 06/02/18, 01/04/20, and 07/18/20. S/p Botox 200u 02/20/21. Took Tolterodine 4mg in the past. PVR (cc): 04/02/21 - 39 08/09/21 - 47 05/28/23 - 0 UA today only shows trace leuks. States she had only one UTI in the past year. Denies gross hematuria. C/o frequency, urgency, UUI. Reports she feels Botox improved her sxs more but also feels medication and Botox seemed to work best. Advised pt we can restart her on Tolterodine. Also will proceed with Botox treatment as long as cystoscopy is not required prior. -Begin Tolterodine ER 4mg. Rx sent to [facility]. Monitor for SEs. -Will discuss case with Dr. Cordoba to determine if cysto is required prior to scheduled Botox -Will schedule Botox. The procedural risks, benefits, details, and treatment alternatives have been discussed with the patient. These include bleeding, infection, continued problems with overactive bladder, inability to empty the bladder which could require an indwelling catheter or need for in/out catheterization to empty the bladder, and need for repeat procedures over time (usually lasts up to six months), as well as fatigue and insomnia, among others. There is a minimal risk of Botox entering the blood stream and causing neurological problems, which is quite rare. Full informed consent has been obtained. Will order Local anesthesia. Ordered: E&M of Est. Patient Moderate 30-39 Min 71675 2. OAB (overactive bladder) (N32.81: Overactive bladder) see #1 Orders: tolterodine, 4 mg = 1 cap(s), Oral, Daily, X 30 day(s), # 30 cap(s), Refills(s) 11, Pharmacy: [facility]/pharmacy #[id number], 173, cm, 05/28/23 16:07:00 EST, Height/Length Dosing, 142, kg, 05/28/23 16:07:00 EST, Weight Dosing 00096 Measure Post Void residual urine and/or bladder capacity by US- non-imaging Urnls Dip Stick Auto w/o Microscopy POC [id number] Follow-up With When Contact Information KAYY CARDENAS PA-C, URL [address] [place] [address] [phone] Additional Instructions: sched cysto or Botox Patient Education Botulinum Toxin Bladder Injection Urinary Incontinence I, Lani Hendrickson, personally scribed for Kayy Cardenas PA-C on 05/28/2023 16:20:14. . Problem List/Past Medical History Ongoing Arthritis BMI 50.0-59.9, adult Depression Fibromyalgia Gastroesophageal reflux Hyperlipidemia Incomplete bladder emptying Microscopic hematuria Migraine Mixed incontinence Neuropathy Nocturia Seizure Urge incontinence Urinary urgency UTI (urinary tract infection) UTI symptoms Historical No qualifying data Procedure/Surgical History Cystoscopy (02/20/2021), Cystoscopy (01/04/2020), cysto/ botox (06/02/2018), cystoscopy (01/28/2017), back surgery, carpel tunnel release, cesearian section, Cholecystectomy, D&C, History of tubal ligation. Medications Aimovig SureClick 70 mg/mL subcutaneous solution, 70 mg Albuterol (Eqv-ProAir HFA), Inhalation, q6hr benztropine 0.5 mg oral tablet, Oral, Once a day (at bedtime) busPIRone 10 mg Tab, Oral, BID fluticasone 0.05 mg/inh Nasal [place], Nasal, Daily gabapentin 400 mg Cap, Oral, TID lamotrigine 100 mg Tab, Oral, BID lamotrigine 200 mg Tab, Oral, BID meclizine 25 mg Tab, Oral, TID omeprazole 40 mg Cap-DR, Oral, Daily Rexulti 4 mg oral tablet, Oral, Daily simvastatin 40 mg Tab, Oral, qPM spironolactone 50 mg Tab, Oral, BID venlafaxine 150 mg Cap-ER, Oral, Daily Allergies Tape (Rash) aspir (more content not included)... Normal [facility] Comment on above: Result Comment: Elec tronically Signed By: KAYY CARDENAS PA-C\.br\Date and Time Signed: 05/30/23 09:21 EST\.br\Electronically Co-Signed By: Lani Hendrickson\.br\Date and Time Co-Signed: 05/28/23 16:20 EST Ambulatory Visit Summaryon 0 05-28-2023 Ambulatory Visit Summary SHAILESH BLAKE :1970 Visit Date:05/28/2023 Ambulatory Visit Instructions Your Diagnosis Mixed incontinence Your Care Team Attending Physician - KAYY CARDENAS PA-C Primary Care Physician - Dioni Flores MD. This Is Your Medications List albuterol (Albuterol (Eqv-ProAir HFA)) benztropine (benztropine 0.5 mg oral tablet) brexpiprazole (Rexulti 4 mg oral tablet) busPIRone (busPIRone 10 mg Tab) erenumab (Aimovig SureClick 70 mg/mL subcutaneous solution) fluticasone nasal (fluticasone 0.05 mg/inh Nasal [place]) gabapentin (gabapentin 400 mg Cap) lamotrigine (lamotrigine 100 mg Tab) lamotrigine (lamotrigine 200 mg Tab) meclizine (meclizine 25 mg Tab) omeprazole (omeprazole 40 mg Cap-DR) simvastatin (simvastatin 40 mg Tab) spironolactone (spironolactone 50 mg Tab) venlafaxine (venlafaxine 150 mg Cap-ER) Procedures Performed Cystoscopy (02/20/2021), Cystoscopy (01/04/2020), cysto/ botox (06/02/2018), cystoscopy (01/28/2017), back surgery, carpel tunnel release, cesearian section, Cholecystectomy, D&C, History of tubal ligation. Discharge Vitals Height 173 cm Height 68 in Weight 142 kg Weight 312.4 lb BMI 47.45 What to do next You Need to Schedule the Following Appointments Follow Up with KAYY CARDENAS PA-C, [place] When: Where: [address] [place] [address] [phone] Medications What How Much When Instructions Unchanged albuterol (Albuterol (Eqv-ProAir HFA)) Inhalation Every 6 hours Unchanged benztropine (benztropine 0.5 mg oral tablet) By Mouth Once a day (at bedtime) Unchanged brexpiprazole (Rexulti 4 mg oral tablet) By Mouth Every day Unchanged busPIRone (busPIRone 10 mg Tab) By Mouth 2 times a day Unchanged erenumab (Aimovig SureClick 70 mg/ mL subcutaneous solution) 70 Milligram Unchanged fluticasone nasal (fluticasone 0.05 mg/ inh Nasal [place]) Nasal Inhalation Every day Unchanged gabapentin (gabapentin 400 mg Cap) By Mouth 3 times a day Unchanged lamotrigine (lamotrigine 100 mg Tab) By Mouth 2 times a day Unchanged lamotrigine (lamotrigine 200 mg Tab) By Mouth 2 times a day Unchanged meclizine (meclizine 25 mg Tab) By Mouth 3 times a day Unchanged omeprazole (omeprazole 40 mg Cap-DR) By Mouth Every day Unchanged simvastatin (simvastatin 40 mg Tab) By Mouth Once a day (in the evening) Unchanged spironolactone (spironolactone 50 mg Tab) By Mouth 2 times a day Unchanged venlafaxine (venlafaxine 150 mg Cap-ER) By Mouth Every day Allergies Tape (Rash) aspirin (Shakes) desonide topical (Unknown) Problems Ongoing - Any problem that you are currently receiving treatment for. Arthritis BMI 50.0-59.9, adult Depression Fibromyalgia Gastroesophageal reflux Hyperlipidemia Incomplete bladder emptying Microscopic hematuria Migraine Mixed incontinence Neuropathy Nocturia Seizure Urge incontinence Urinary urgency UTI (urinary tract infection) UTI symptoms Patient Survey You may receive a survey via text or e-mail asking about your office visit. Please share your experience with us by completing your survey. We appreciate your feedback and thank you for choosing us for your care. Education Materials Botulinum Toxin Bladder Injection A botulinum toxin bladder injection is a procedure to treat an overactive bladder. During the procedure, a drug called botulinum toxin is injected into the bladder through a long, thin needle. This drug relaxes the bladder muscles and reduces overactivity. You may need this procedure if your medicines are not working or you cannot take them. The procedure may be repeated as needed. The treatment is done once and it usually lasts for 6 months. Your health care provider will monitor you to see how well you respond. Tell a health care provider about: ? Any allergies you have. ? All medicines you are taking, including vitamins, herbs, eye drops, creams, and sheb-cvw-hpjcamv medicines. ? Any problems you or family members have had with anesthetic medicines. ? Any bleeding problems you have. ? Any surgeries you have had. ? Any medical conditions you have. ? Any previous reactions to a botulinum toxin injection. ? Any symptoms of urinary tract infection. These include chills, fever, a burning feeling when passing urine, and needing to pass urine often. ? Whether you are or may be . What are the risks? Generally this is a safe procedure. However, problems may occur, including: ? Not being able to pass urine. If this happens, you may need to have your bladder emptied with a thin tube (urinary catheter). ? Bleeding. ? Urinary tract infection. ? Allergic reaction to the botulinum toxin. ? Pain or burning when passing urine. ? Damage to nearby structures or organs. What happens before the procedure? When to stop eating and drinking Follow instructions from your health (more content not included)... Normal [facility] Patient Educationon 05-28-19 24 Patient Education Urology Botulinum Toxin Bladder Injection A botulinum toxin bladder injection is a procedure to treat an overactive bladder. During the procedure, a drug called botulinum toxin is injected into the bladder through a long, thin needle. This drug relaxes the bladder muscles and reduces overactivity. You may need this procedure if your medicines are not working or you cannot take them. The procedure may be repeated as needed. The treatment is done once and it usually lasts for 6 months. Your health care provider will monitor you to see how well you respond. Tell a health care provider about: ? Any allergies you have. ? All medicines you are taking, including vitamins, herbs, eye drops, creams, and uwea-nqw-gwvzwqu medicines. ? Any problems you or family members have had with anesthetic medicines. ? Any bleeding problems you have. ? Any surgeries you have had. ? Any medical conditions you have. ? Any previous reactions to a botulinum toxin injection. ? Any symptoms of urinary tract infection. These include chills, fever, a burning feeling when passing urine, and needing to pass urine often. ? Whether you are or may be . What are the risks? Generally this is a safe procedure. However, problems may occur, including: ? Not being able to pass urine. If this happens, you may need to have your bladder emptied with a thin tube (urinary catheter). ? Bleeding. ? Urinary tract infection. ? Allergic reaction to the botulinum toxin. ? Pain or burning when passing urine. ? Damage to nearby structures or organs. What happens before the procedure? When to stop eating and drinking Follow instructions from your health care provider about what you may eat and drink before your procedure. These may include: ? 8 hours before the procedure ? Stop eating most foods. Do not eat meat, fried foods, or fatty foods. ? Eat only light foods, such as toast or crackers. ? All liquids are okay except energy drinks and alcohol. ? 6 hours before the procedure ? Stop eating. ? Drink only clear liquids, such as water, clear fruit juice, black coffee, plain tea, and sports drinks. ? Do not drink energy drinks or alcohol. ? 2 hours before the procedure ? Stop drinking all liquids. ? You may be allowed to take medicines with small sips of water. If you do not follow your health care provider's instructions, your procedure may be delayed or canceled. Medicines Ask your health care provider about: ? Changing or stopping your regular medicines. This is especially important if you are taking diabetes medicines or blood thinners. ? Taking medicines such as aspirin and ibuprofen. These medicines can thin your blood. Do not take these medicines unless your health care provider tells you to take them. ? Taking wetj-vxj-jcizsrj medicines, vitamins, herbs, and supplements. General instructions ? Ask your health care provider what steps will be taken to help prevent infection. These steps may include: ? Removing hair at the procedure site. ? Washing skin with a germ-killing soap. ? Taking antibiotic medicine. ? If you will be going home right after the procedure, plan to have a responsible adult: ? Take you home from the hospital or clinic. You will not be allowed to drive. ? Care for you for the time you are told. What happens during the procedure? ? You will be asked to empty your bladder. ? An IV will be inserted into one of your veins. ? You will be given one or more of the following: ? A medicine to help you relax (sedative). ? A medicine to numb the area (local anesthetic). ? A medicine to make you fall asleep (general anesthetic). ? A long, thin scope called a cystoscope will be passed into your bladder through the part of the body that carries urine from your bladder (urethra). ? The cystoscope will be used to fill your bladder with water. ? A long needle will be passed through the cystoscope and into the bladder. ? The botulinum toxin will be injected into your bladder. It may be injected into multiple areas of your bladder. ? The cystoscope will be removed and your bladder will be emptied with a urinary catheter. The procedure may vary among health care providers and hospitals. What can I expect after the procedure? After your procedure, it is common to have: ? Blood-tinged urine. ? Burning or soreness when you pass urine. Follow these instructions at home: Medicines ? Take rupx-nbl-sgbbrih and prescription medicines only as told by your health care provider. ? If you were prescribed an antibiotic medicine, take it as told by your health care provider. Do not stop using the antibiotic even if you start to feel better. General instructions ? If you were given a sedative during the procedure, it can affect you for several hours. Do not drive or operate machinery until your health ca (more content not included)... Normal [facility] XR lumbar spine AP/LAT/FLX/E XTon 05-19-2023 XR lumbar spine AP/LAT/FLX/EXT [facility] [place] [address] [place] [address] XRay Report Signed Patient: Shailesh Blake MR#: [id number] : 1970 Acct:[id number] Age/Sex: 52 / F ADM Date: 05/19/23 Loc: Room: Type: [facility] Attending Dr: Asif Cox MD Copies to: [...] 6:03 PM Dictation Location: RADIO-PC-13 Transcribed By: [facility] 05/19/23 180 Dictated By: Ronan Henry II, MD 05/19/23 1800 Signed By: 05/19/23 180 Normal [facility] XR hip LT min 2V(w/wo pelvis )*on 04-09-2023 XR hip LT min 2V(w/wo pelvis)* [facility] [place] [address] XRay Report Signed Patient: Shailesh Blake MR#: [id number] : 1970 Acct:[id number] Age/Sex: 52 / F ADM Date: 04/09/23 Loc: XD Room: Type: [facility] Attending Dr: Destini Kilgore NP Copies to: Destini Kilgore NP Ordering Provider: [...] Blanchard Jr., D.OPromise04/09/2023 3:57 PM Dictation Location: RADIO-PC-08 Transcribed By: MADAN 04/09/23 1557 Dictated By: Memo Blanchard Jr DO 04/09/23 1557 Signed By: 04/09/23 1557 Normal [facility] XR hip LT min 2V(w/wo pelvis)* [facility] [place] Other XR hip LT min 2V(w/wo pelvis)* [facility] [place] Other XR hip LT min 2V(w/wo pelvis)* [address] [place] [address] [place] Other XR hip LT min 2V(w/wo pelvis)* [place] [address] [facility] Other XR hip LT min 2V(w/wo pelvis)* XRay Report [facility] Other XR hip LT min 2V(w/wo pelvis)* Signed [facility] Other XR hip LT min 2V(w/wo pelvis)* Patient: Shailesh Blake MR#: [id number] [facility] Other XR hip LT min 2V(w/wo pelvis)* : 1970 Acct:[id number] [place] Other XR hip LT min 2V(w/wo pelvis)* Age/Sex: 52 / F ADM Date: 04/09/23 [place] Other XR hip LT min 2V(w/wo pelvis)* Loc: XD Room: Type: [facility] [place] Other XR hip LT min 2V(w/wo pelvis)* Attending Dr: Destini Kilgore NP [place] Other XR hip LT min 2V(w/wo pelvis)* Copies to: Destini Kilgore NP [facility] Other XR hip LT min 2V(w/wo pelvis)* Ordering Provider: Destini Kilgore NP [facility] Other XR hip LT min 2V(w/wo pelvis)* Date of Service: 04/09/23 [place] Other XR hip LT min 2V(w/wo pelvis)* XR/XR hip LT min 2V(w/wo pelvis)*: Left hip pain [place] Other XR hip LT min 2V(w/wo pelvis)* Left hip 2 views. [place] Other XR hip LT min 2V(w/wo pelvis)* Reason for exam: Left hip pain radiates into the joint and down into the knee for 3 days. [facility] Other XR hip LT min 2V(w/wo pelvis)* COMPARISON: None. [facility] Other XR hip LT min 2V(w/wo pelvis)* FINDINGS: Mild degenerative changes of the left hip without acute bony process. [place] Other XR hip LT min 2V(w/wo pelvis)* XR/XR hip LT min 2V(w/wo pelvis)* [facility] Other XR hip LT min 2V(w/wo pelvis)* IMPRESSION: Mild degenerative changes of the left hip without acute bony process. [place] Other XR hip LT min 2V(w/wo pelvis)* Impression dictated by: Memo Blanchard Jr., D.OPromise04/09/2023 3:57 PM [place] Other XR hip LT min 2V(w/wo pelvis)* Dictation Location: [place] [address] [place] Other XR hip LT min 2V(w/wo pelvis)* Transcribed By: MADAN 04/09/23 [facility] [place] Other XR hip LT min 2V(w/wo pelvis)* Dictated By: Memo Blanchard Jr, DO 04/09/23 [facility] [place] Other XR hip LT min 2V(w/wo pelvis)* Signed By: [facility] Other XR hip LT min 2V(w/wo pelvis)* 04/09/23 1552 [place] Other XR thoracic spine 3V*on XR thoracic spine 3V* [facility] [place] [address] [place] [address] XRay Report Signed Patient: Shailesh Blake MR#: [id number] : 1970 Acct:[id number] Age/Sex: 51 / F ADM Date: 10/31/22 Loc: XD Room: Type: [facility] Attending Dr: Asif Cox MD Copies to: [...] Blanchard Jr., D.OPromise10/31/2022 7:23 PM Dictation Location: [place] [address] Transcribed By: [facility] 10/31/221922 Dictated By: Memo Blanchard Jr, DO 10/31/221922 Signed By: 10/31/221922 Normal [facility] US PELVIS AND TRANSVAGon US PELVIS [...] within the endometrial cavity. Electronically authenticated by: JACINTA CANO Date: 2022-08-27 07:34 Normal [facility] XR DEXA BONE DENSITYon 08-26 XR [...] - Low Fracture Risk Electronically authenticated by: JACINTA CANO Date: 2022-08-26 16:16 Normal [facility] PAP ACOG PANEL 2: 30 to 65on 08-10-2022 . . Normal [facility] Comment on above: Result Comment: Perf ormed at: WB Performed By: #### [id number] #### [facility] [address] [address] [address] Beth Alanis Age Gdln ACOG Testing 30-65 [facility] Comment on above: Performed By: #### 4 [id number] #### [facility] [address] [address] [address] Beth Alanis DIAGNOSIS: Comment [facility] Comment on above: Result Comment: NEGA TIVE FOR INTRAEPITHELIAL LESION OR MALIGNANCY. Performed at: WB Performed By: #### 4 [id number] #### [facility] [address] [place] [address] Dr. Beth Alanis HPV Aptima Negative Normal Negative [facility] Comment on above: Result Comment: This nucleic acid amplification test detects fourteen high-risk HPV types (16,18,31,33,35,39,45,51,52,56,58,59,66,68) without differentiation. Performed at: =G Performed By: #### 4 [id number] #### [facility] [address] [place] [address] Dr. Beth Alanis HPV Genotype Reflex Comment Normal [facility] Comment on above: Result Comment: Crit eria not met, HPV Genotype not performed. Performed at: WB Performed By: #### 4 [id number] #### [facility] [address] [place] [address] Dr. Beth Alanis Methodology: Comment Normal [facility] Comment on above: Result Comment: This liquid based ThinPrep(R) pap test was screened with the use of an image guided system. Performed at: WB Performed By: #### 4 [id number] #### [facility] [address] [place] [address] Dr. Beth Alanis Note: Comment Normal [facility] Comment on above: Result Comment: The Pap smear is a screening test designed to aid in the detection of premalignant and malignant conditions of the uterine cervix. It is not a diagnostic procedure and should not be used as the sole means of detecting cervical cancer. Both false-positive and false-negative reports do occur. . Performed at: WB Performed By: #### 4 [id number] #### [facility] [address] [place] [address] Dr. Beth Alanis Performed by: Comment Normal [facility] Comment on above: Result Comment: Evelyn Ayala, Caterer Helper (ASCP) Performed at: WB Performed By: #### 4 [id number] #### [facility] [address] [place] [address] Dr. Bteh Alanis Specimen adequacy: Comment Normal [facility] Comment on above: Result Comment: Sati sfactory for evaluation. Endocervical and/or squamous metaplastic cells (endocervical component) are present. Performed at: WB Performed By: #### 4 [id number] #### [facility] [address] [place] [address] Dr. Beth Alanis Covid-19 PCR ([facility])on 06-26 SARS-CoV-2 (COVID-19) RNA ANITA+probe Ql (Unsp spec) Not detected Normal NOT DETECTED [facility] Comment on above: Result Comment: This test is not yet approved or cleared by the [place] FDA. When there are no FDA-approved or cleared tests available, and other criteria are met, FDA can make tests available under an emergency access mechanism called an Emergency Use Authorization (EUA). The EUA for this test is supported by the [employer] Developer of Health and Human Service's (HHS's) declaration [...] consistent with SARS-CoV-2. Performed By: #### B MARINE DRAFTER, BMP, HSTROPN #### [facility] [address] [place] [address] Dr. Beth Alanis INFLUENZA A AND B AGon 07-14 [facility] Normal [facility] Comment on above: Result Comment: Nega tive for Flu A protein angiten. Infection due to Flu A cannot be ruled out. Flu A angiten in the sample may be below the detection limit of the test. Performed By: #### I NFLUAB #### [facility] [address] [place] [address] Dr. Beth Alanis INFLUBNEG SEE BELOW Normal [facility] Comment on above: Result Comment: Nega tive for Flu B protein antigen. Infection due to Flu B cannot be ruled out. Flu B antigen in the sample may be below the detection limit of the test. Performed By: #### I NFLUAB #### [facility] [address] [place] [address] Dr. Beth Alanis INFLUENZA A AG Negative Normal NEGATIVE SEE COMMENT [facility] Comment on above: Performed By: #### I NFLUAB #### [facility] [address] [place] [address] Dr. Beth Alanis INFLUENZA B AG Negative Normal NEGATIVE SEE COMMENT [facility] Comment on above: Performed By: #### I NFLUAB #### [facility] [address] [place] [address] Dr. Beth Alanis SYMPTOMATIC COVID-19 ANTIGEN on 07-14-2022 EUA Statement SEE BELOW Normal [facility] Comment on above: Result Comment: [...] is revoked sooner. Performed By: #### B MARINE DRAFTER, BMP, HSTROPN #### [facility] [address] [place] [address] Dr. Beth Alanis SARS-CoV-2 (COVID-19) RNA ANITA+probe Ql (Unsp spec) Negative Normal NEGATIVE [facility] Comment on above: Performed By: #### B MARINE DRAFTER, BMP, HSTROPN #### [facility] [address] [place] [address] Dr. Beth Alanis XR CHEST 1 Von 07-14-2022 XR CHEST 1 V EXAM: Chest x-ray HISTORY: . COUGH . COMPARISON: 10/23/2021 TECHNIQUE: Single view of the chest. FINDINGS: Heart and vascularity are unremarkable. Lungs are free of focal infiltrates. Grossly no bony abnormality is appreciated. Impression: No acute heart or lung disease identified. Electronically authenticated by: MELLISSA PRIEST Date: 2022-07-14 11:13 Normal [facility] XR shoulder RT min 2V*on XR shoulder RT min 2V* [facility] [place] [address] [place] [address] XRay Report Signed Patient: Shailesh Blake MR#: [id number] : 1970 Acct:[id number] Age/Sex: 51 / F ADM Date: 07/08/22 Loc: XD Room: Type: [facility] Attending Dr: Asif Cox MD Copies to: [...] Benito Blake M.D.07/08/2022 1:10 PM Dictation Location: [place] [address] Transcribed By: [facility] 07/08/22 1310 Dictated By: Benito Blake DO 07/08/22 1307 Signed By: 07/08/22 1310 Normal [facility] VAGINITIS/VAGINOSIS DNA PROB Pablo 05-22-2022 Rosie species Negative Normal Negative [facility] Comment on above: Performed By: #### V AGINT #### [facility] [address] [address] [address] Beth Alanis Gardnerella vaginalis Negative Normal Negative [facility] Comment on above: Performed By: #### V AGINT #### [facility] [address] [address] [address] Beth Alanis Trichomonas vaginalis Negative Normal Negative [facility] Comment on above: Performed By: #### V AGINT #### [facility] [address] [address] [address] Beth Alanis LIPID PROFILEon 03-18-2022 CHOL-HDL RATIO NORM SEE BELOW Normal [facility] Comment on above: Result Comment: 3.3 - 4.4 LOW RISK 4.4 - 7.1 AVERAGE RISK 7.1 - 11.0 MODERATE RISK >11.0 HIGH RISK Performed By: #### 4 [id number] #### [facility] [address] [address] [address] Beth Alanis Cholesterol [Mass/Vol] 183 mg/dL Normal <=200 [facility] Comment on above: Performed By: #### 4 [id number] #### [facility] [address] [address] [address] Beth Alanis Cholesterol in HDL [Mass/Vol] 56 mg/dL Normal 40-60 [facility] Comment on above: Performed By: #### 4 [id number] #### [facility] [address] [address] [address] Beth Alanis Cholesterol in LDL [Mass/Vol] 106.8 mg/dL Normal [facility] Comment on above: Performed By: #### 4 [id number] #### [facility] [address] [address] [address] Beth Alanis Cholesterol.total/C holesterol in HDL [Mass ratio] 3.3 {ratio} Normal [facility] Comment on above: Performed By: #### 4 [id number] #### [facility] [address] [address] [address] Beth Alanis HDL NORMAL > or = 60 mg/dl - LO W CARDIOVASCULAR RISK <40 mg/dl - HIGH CARDIOVASCULAR RISK Normal [facility] Comment on above: Performed By: #### 4 [id number] #### [facility] [address] [address] [address] Beth Alnais LDL CALC NORMAL SEE BELOW Normal [facility] Comment on above: Result Comment: <100 mg/dl OPTIMAL 100 - 129 mg/dl NEAR OR ABOVE OPTIMAL 130 - 159 mg/dl BORDERLINE HIGH 160 - 189 mg/dl HIGH >190 mg/dl VERY HIGH Performed By: #### 4 [id number] #### [facility] [address] [place] [address] Dr. Beth Alanis Triglyceride [Mass/Vol] 101 mg/dL Normal <=150 [facility] Comment on above: Performed By: #### 4 [id number] #### [facility] [address] [place] [address] Dr. Beth Alanis VLDL CALC 20.2 mg/dL Normal [facility] Comment on above: Performed By: #### 4 [id number] #### [facility] [address] [place] [address] Dr. Beth Alanis PROF 14(COMP METB)on 022 Albumin [Mass/Vol] 3.8 g/dL Normal 3.4-5.0 [facility] Comment on above: Performed By: #### 4 [id number] #### [facility] [address] [place] [address] Dr. Beth Alanis Albumin/Globulin [Mass ratio] 0.8 {ratio} Normal [facility] Comment on above: Performed By: #### 4 [id number] #### [facility] [address] [place] [address] Dr. Beth Alanis ALP [Catalytic activity/Vol] 108 U/L Normal 46-116 [facility] Comment on above: Performed By: #### 4 [id number] #### [facility] [address] [place] [address] Dr. Beth Alanis ALT [Catalytic activity/Vol] 28 U/L Normal 14-59 [facility] Comment on above: Performed By: #### 4 [id number] #### [facility] [address] [place] [address] Dr. Beth Alanis Anion gap [Moles/Vol] 10.3 mmol/L Normal [facility] Comment on above: Performed By: #### 4 [id number] #### [facility] [address] [place] [address] Dr. Beth Alanis AST [Catalytic activity/Vol] 18 U/L Normal 15-37 [facility] Comment on above: Performed By: #### 4 [id number] #### [facility] [address] [address] [address] Beth Alanis Bilirubin [Mass/Vol] 0.7 mg/dL Normal 0.2-1.0 [facility] Comment on above: Performed By: #### 4 [id number] #### [facility] [address] [place] [address] Dr. Beth Alanis Calcium [Mass/Vol] 9.5 mg/dL Normal 8.5-10.1 [facility] Comment on above: Performed By: #### 4 [id number] #### [facility] [address] [place] [address] Dr. Beth Alanis Chloride [Moles/Vol] 102 mmol/L Normal 98-107 [facility] Comment on above: Performed By: #### 4 [id number] #### [facility] [address] [place] [address] Dr. Beth Alanis CO2 [Moles/Vol] 27.6 mmol/L Normal 21.0-32.0 [facility] Comment on above: Performed By: #### 4 [id number] #### [facility] [address] [place] [address] Dr. Beth Alanis Creatinine [Mass/Vol] 0.93 mg/dL Normal 0.55-1.02 [facility] Comment on above: Performed By: #### 4 [id number] #### [facility] [address] [place] [address] Dr. Beth Alanis EGFR-AF LAO >60 Normal >=60 [facility] Comment on above: Performed By: #### 4 [id number] #### [facility] [address] [place] [address] Dr. Beth Alanis EGFR-NON AF LAO >60 Normal >=60 [facility] Comment on above: Performed By: #### 4 [id number] #### [facility] [address] [place] [address] Dr. Beth Alanis Globulin (S) [Mass/Vol] 5.0 g/dL Normal [facility] Comment on above: Performed By: #### 4 [id number] #### [facility] [address] [address] [address] Beth Alanis Glucose [Mass/Vol] 108 mg/dL Critically high 74-106 [facility] Comment on above: Performed By: #### 4 [id number] #### [facility] [address] [address] [address] Beth Alanis Potassium [Moles/Vol] 3.9 mmol/L Normal 3.5-5.1 [facility] Comment on above: Performed By: #### 4 [id number] #### [facility] [address] [address] [address] Beth Alanis Protein [Mass/Vol] 8.8 g/dL Critically high 6.4-8.2 [facility] Comment on above: Performed By: #### 4 [id number] #### [facility] [address] [place] [address] Dr. Beth Alanis Sodium [Moles/Vol] 136 mmol/L Normal 136-145 [facility] Comment on above: Performed By: #### 4 [id number] #### [facility] [address] [address] [address] Beth Alanis Urea nitrogen [Mass/Vol] 17.0 mg/dL Normal 7.0-18.0 [facility] Comment on above: Performed By: #### 4 [id number] #### [facility] [address] [place] [address] Dr. Beth Alanis Urea nitrogen/Creatinine [Mass ratio] 18.3 mg/mg Normal [facility] Comment on above: Performed By: #### 4 [id number] #### [facility] [address] [place] [address] Dr. Beth Alanis MG MAMM SCREEN 3D LUCINDA CADon 11-22-2021 MG MAMM SCREEN 3D LUCINDA CAD Patient: SHAILESH BLAKE Exam Date: 11/22/2021 : 1970 Gender:F Ordering : DR MARTI JEREZ . Admission #: [id number] Family : Order #: [id number] CLICK HERE TO VIEW EXAM RADIOLOGY REPORT [...] Treatments None Family Cancers None LOCATION: [facility] BREAST COMPOSITION: Heterogeneously dense,which may obscure [...] PALPABLE LUMP SHOULD BE BIOPSIED. Dictated by: Jacinta Cano M.D. on 11/22/2021 at 15:45 Approved by: Jacinta Cano M.D. on 11/22/2021 at 15:52 Normal [facility] GLUCOSE BLOODon 11-21-2021 Glucose [Mass/Vol] 110 mg/dL Critically high 74-106 [facility] Comment on above: Performed By: #### 4 [id number] #### [facility] [address] [address] [address] Beth Alanis LIPID PROFILEon 11-21-2021 CHOL-HDL RATIO NORM SEE BELOW Normal [facility] Comment on above: Result Comment: 3.3 - 4.4 LOW RISK 4.4 - 7.1 AVERAGE RISK 7.1 - 11.0 MODERATE RISK >11.0 HIGH RISK Performed By: #### 4 [id number] #### [facility] [address] [address] [address] Beth Alanis Cholesterol [Mass/Vol] 258 mg/dL Critically high <=200 [facility] Comment on above: Performed By: #### 4 [id number] #### [facility] [address] [address] [address] Beth Alanis Cholesterol in HDL [Mass/Vol] 34 mg/dL Critically low 40-60 [facility] Comment on above: Performed By: #### 4 [id number] #### [facility] [address] [address] [address] Beth Alanis Cholesterol in LDL [Mass/Vol] 161.4 mg/dL Normal [facility] Comment on above: Performed By: #### 4 [id number] #### [facility] [address] [place] [address] Dr. Beth Alanis Cholesterol.total/C holesterol in HDL [Mass ratio] 7.6 {ratio} Normal [facility] Comment on above: Performed By: #### 4 [id number] #### [facility] [address] [address] [address] Beth Alanis HDL NORMAL > or = 60 mg/dl - LO W CARDIOVASCULAR RISK <40 mg/dl - HIGH CARDIOVASCULAR RISK Normal [facility] Comment on above: Performed By: #### 4 [id number] #### [facility] [address] [place] [address] Dr. Beth Alanis LDL CALC NORMAL SEE BELOW Normal [facility] Comment on above: Result Comment: <100 mg/dl OPTIMAL 100 - 129 mg/dl NEAR OR ABOVE OPTIMAL 130 - 159 mg/dl BORDERLINE HIGH 160 - 189 mg/dl HIGH >190 mg/dl VERY HIGH Performed By: #### 4 [id number] #### [facility] [address] [place] [address] Dr. Beth Alanis Triglyceride [Mass/Vol] 313 mg/dL Critically high <=150 [facility] Comment on above: Performed By: #### 4 [id number] #### [facility] [address] [place] [address] Dr. Beth Alanis VLDL CALC 62.6 mg/dL Normal [facility] Comment on above: Performed By: #### 4 [id number] #### [facility] [address] [place] [address] Dr. Beth Alanis BNPon 10-23-2021 Natriuretic peptide B (Bld) [Mass/Vol] 15.0 pg/mL Normal <=900.0 [facility] Comment on above: Performed By: #### B MARINE DRAFTER, BMP, HSTROPN #### [facility] [address] [place] [address] Dr. Beth Aalnis CBC AUTO DIFFon 10-23-2021 BASO # 0.1 103/ul Normal 0.0-0.1 [facility] Comment on above: Performed By: #### B MARINE DRAFTER, BMP, HSTROPN #### [facility] [address] [place] [address] Dr. Beth Alanis Basophils/100 WBC (Bld) 0.6 % Normal 0.2-2.0 [facility] Comment on above: Performed By: #### B MARINE DRAFTER, BMP, HSTROPN #### [facility] [address] [place] [address] Dr. Beth Alanis EO # 0.1 103/ul Normal 0.0-0.7 [facility] Comment on above: Performed By: #### B MARINE DRAFTER, BMP, HSTROPN #### [facility] [address] [place] [address] Dr. Beth Alanis Eosinophils/100 WBC (Bld) 1.8 % Normal 0.9-7.0 [facility] Comment on above: Performed By: #### B MARINE DRAFTER, BMP, HSTROPN #### [facility] [address] [place] [address] Dr. Beth Alanis Erythrocyte distribution width (RBC) [Ratio] 13.6 % Normal 11.0-15.0 [facility] Comment on above: Performed By: #### B MARINE DRAFTER, BMP, HSTROPN #### [facility] [address] [place] [address] Dr. Beth Alanis Hematocrit (Bld) [Volume fraction] 46.6 % Normal 36.0-48.0 [facility] Comment on above: Performed By: #### B MARINE DRAFTER, BMP, HSTROPN #### [facility] [address] [place] [address] Dr. Beth Alanis Hemoglobin (Bld) [Mass/Vol] 15.1 g/dL Normal 12.0-16.0 [facility] Comment on above: Performed By: #### B MARINE DRAFTER, BMP, HSTROPN #### [facility] [address] [place] [address] Dr. Beth Alanis IG # 0.02 10e3/ul Normal 0.00-0.03 [facility] Comment on above: Performed By: #### B MARINE DRAFTER, BMP, HSTROPN #### [facility] [address] [place] [address] Dr. Beth Alanis IG % 0.3 % Normal 0.0-0.5 [facility] Comment on above: Performed By: #### B MARINE DRAFTER, BMP, HSTROPN #### [facility] [address] [place] [address] Dr. Beth Alanis LYMPH # 1.9 103/ul Normal 1.2-3.8 [facility] Comment on above: Performed By: #### B MARINE DRAFTER, BMP, HSTROPN #### [facility] [address] [place] [address] Dr. Beth Alanis Lymphocytes/100 WBC (Bld) 23.9 % Normal 20.5-60.0 [facility] Comment on above: Performed By: #### B MARINE DRAFTER, BMP, HSTROPN #### [facility] [address] [place] [address] Dr. Beth Alanis MANUAL DIFF REQ NO Normal [facility] Comment on above: Performed By: #### B MARINE DRAFTER, BMP, HSTROPN #### [facility] [address] [place] [address] Dr. Beth Alanis MCH (RBC) [Entitic mass] 29.8 pg Normal 26.7-34.0 [facility] Comment on above: Performed By: #### B MARINE DRAFTER, BMP, HSTROPN #### [facility] [address] [place] [address] Dr. Beth Alanis MCHC (RBC) [Mass/Vol] 32.4 g/dL Normal 29.9-35.2 [facility] Comment on above: Performed By: #### B MARINE DRAFTER, BMP, HSTROPN #### [facility] [address] [place] [address] Dr. Beth Alanis MCV (RBC) [Entitic vol] 91.9 fL Normal 81.0-99.0 [facility] Comment on above: Performed By: #### B MARINE DRAFTER, BMP, HSTROPN #### [facility] [address] [place] [address] Dr. Beth Alanis MONO # 0.6 103/ul Normal 0.3-0.8 [facility] Comment on above: Performed By: #### B MARINE DRAFTER, BMP, HSTROPN #### [facility] [address] [place] [address] Dr. Beth Alanis Monocytes/100 WBC (Bld) 7.7 % Normal 1.7-12.0 [facility] Comment on above: Performed By: #### B MARINE DRAFTER, BMP, HSTROPN #### [facility] [address] [place] [address] Dr. Beth Alanis NEUT # 5.1 103/ul Normal 1.4-6.5 [facility] Comment on above: Performed By: #### B MARINE DRAFTER, BMP, HSTROPN #### [facility] [address] [place] [address] Dr. Beth Alanis Neutrophils/100 WBC (Bld) 65.7 % Normal 43.0-75.0 [facility] Comment on above: Performed By: #### B MARINE DRAFTER, BMP, HSTROPN #### [facility] [address] [place] [address] Dr. Beth Alanis Platelet mean volume (Bld) [Entitic vol] 9.6 fL Normal 9.5-13.5 [facility] Comment on above: Performed By: #### B MARINE DRAFTER, BMP, HSTROPN #### [facility] [address] [place] [address] Dr. Beth Alanis PLT 324 103/ul Normal 150-450 [facility] Comment on above: Performed By: #### B MARINE DRAFTER, BMP, HSTROPN #### [facility] [address] [place] [address] Dr. Beth Alanis RBC 5.07 106/ul Normal 4.20-5.40 [facility] Comment on above: Performed By: #### B MARINE DRAFTER, BMP, HSTROPN #### [facility] [address] [place] [address] Dr. Beth Alanis WBC 7.8 103/ul Normal 4.0-11.0 [facility] Comment on above: Performed By: #### B MARINE DRAFTER, BMP, HSTROPN #### [facility] [address] [place] [address] Dr. Beth Alanis PROF CHEM 8 (BAS METB)on Anion gap [Moles/Vol] 6.7 mmol/L Normal [facility] Comment on above: Performed By: #### B MARINE DRAFTER, BMP, HSTROPN #### [facility] [address] [place] [address] Dr. Beth Alanis Calcium [Mass/Vol] 9.3 mg/dL Normal 8.5-10.1 [facility] Comment on above: Performed By: #### B MARINE DRAFTER, BMP, HSTROPN #### [facility] [address] [place] [address] Dr. Beth Alanis Chloride [Moles/Vol] 104 mmol/L Normal 98-107 [facility] Comment on above: Performed By: #### B MARINE DRAFTER, BMP, HSTROPN #### [facility] [address] [place] [address] Dr. Beth Alanis CO2 [Moles/Vol] 31.3 mmol/L Normal 21.0-32.0 [facility] Comment on above: Performed By: #### B MARINE DRAFTER, BMP, HSTROPN #### [facility] [address] [place] [address] Dr. Beth Alanis Creatinine [Mass/Vol] 0.98 mg/dL Normal 0.55-1.02 [facility] Comment on above: Performed By: #### B MARINE DRAFTER, BMP, HSTROPN #### [facility] [address] [place] [address] Dr. Beth Alanis EGFR-AF LAO >60 Normal >=60 [facility] Comment on above: Performed By: #### B MARINE DRAFTER, BMP, HSTROPN #### [facility] [address] [place] [address] Dr. Beth Alanis EGFR-NON AF LAO =60 Normal >=60 [facility] Comment on above: Performed By: #### B MARINE DRAFTER, BMP, HSTROPN #### [facility] [address] [place] [address] Dr. Beth Alanis Glucose [Mass/Vol] 104 mg/dL Normal 74-106 [facility] Comment on above: Performed By: #### B MARINE DRAFTER, BMP, HSTROPN #### [facility] [address] [address] [address] Beth Alanis Potassium [Moles/Vol] 4.0 mmol/L Normal 3.5-5.1 [facility] Comment on above: Performed By: #### B MARINE DRAFTER, BMP, HSTROPN #### [facility] [address] [place] [address] Dr. eBth Alanis Sodium [Moles/Vol] 138 mmol/L Normal 136-145 [facility] [facility] Comment on above: Performed By: #### B MARINE DRAFTER, BMP, HSTROPN #### [facility] [address] [place] [address] Dr. Beth Alanis Urea nitrogen [Mass/Vol] 12.0 mg/dL Normal 7.0-18.0 [facility] Comment on above: Performed By: #### B MARINE DRAFTER, BMP, HSTROPN #### [facility] [address] [place] [address] Dr. Beth Alanis Urea nitrogen/Creatinine [Mass ratio] 12.2 mg/mg Normal [facility] Comment on above: Performed By: #### B MARINE DRAFTER, BMP, HSTROPN #### [facility] [address] [place] [address] Dr. Beth Alanis TROPONIN, HIGH SENSITIVITYon 10-23-2021 HSTROP 5.6 pg/mL Normal 4.0-51.3 [facility] Comment on above: Result Comment: CUT- OFF POINTS HAVE BEEN ESTABLISHED BASED ON THE FOURTH UNIVERSAL DEFINITIONS OF MYOCARDIAL INFARCTION. THE UPPER REFERENCE LIMIT (URL) OF TROPONIN, DEFINED THE 99TH PERCENTILE OF cTnI DISTRIBUTION IN A REFERENCE POPULATION, HAS BEEN CONFIRMED THE DECISION THRESHOLD FOR SC DIAGNOSIS. Performed By: #### B MARINE DRAFTER, BMP, HSTROPN #### [facility] [address] [address] [address] Beth Alanis XR CHEST 1 Von [...] of the chest. Electronically authenticated by: CHELY KIETH Date: 2021-10-23 16:45 Normal [facility] INSULINon 09-05-2021 Insulin 26.0 uIU/mL Critically high 2.6-24.9 [facility] Comment on above: Performed By: #### [id number] #### [facility] [address] [place] [address] Dr. Beth Alanis OCC BLD IMMUNO SCREENon 08-26 OCCULT BLOOD Negative Normal NEGATIVE [facility] Comment on above: Performed By: #### O BSCRN #### [facility] [address] [place] [address] Dr. Beth Alanis CBC AUTO DIFFon 09-04-2021 BASO # 0.0 103/ul Normal 0.0-0.1 [facility] Comment on above: Performed By: #### C BC #### [facility] [address] [place] [address] Dr. Beth Alanis Basophils/100 WBC (Bld) 0.4 % Normal 0.2-2.0 [facility] Comment on above: Performed By: #### C BC #### [facility] [address] [place] [address] Dr. Beth Alanis EO # 0.1 103/ul Normal 0.0-0.7 [facility] Comment on above: Performed By: #### C BC #### [facility] [address] [place] [address] Dr. Beth Alanis Eosinophils/100 WBC (Bld) 1.2 % Normal 0.9-7.0 [facility] Comment on above: Performed By: #### C BC #### [facility] [address] [place] [address] Dr. Beth Alanis Erythrocyte distribution width (RBC) [Ratio] 14.1 % Normal 11.0-15.0 [facility] Comment on above: Performed By: #### C BC #### [facility] [address] [place] [address] Dr. Beth Alanis Hematocrit (Bld) [Volume fraction] 44.1 % Normal 36.0-48.0 [facility] Comment on above: Performed By: #### C BC #### [facility] [address] [place] [address] Dr. Beth Alanis Hemoglobin (Bld) [Mass/Vol] 14.6 g/dL Normal 12.0-16.0 [facility] Comment on above: Performed By: #### C BC #### [facility] [address] [place] [address] Dr. Beth Alanis IG # 0.03 10e3/ul Normal 0.00-0.03 [facility] Comment on above: Performed By: #### C BC #### [facility] [address] [place] [address] Dr. Beth Alanis IG % 0.3 % Normal 0.0-0.5 [facility] Comment on above: Performed By: #### C BC #### [facility] [address] [place] [address] Dr. Beth Alanis LYMPH # 1.9 103/ul Normal 1.2-3.8 [facility] Comment on above: Performed By: #### C BC #### [facility] [address] [place] [address] Dr. Beth Alanis Lymphocytes/100 WBC (Bld) 17.8 % Critically low 20.5-60.0 [facility] Comment on above: Performed By: #### C BC #### [facility] [address] [place] [address] Dr. Beth Alanis MANUAL DIFF REQ NO Normal [facility] Comment on above: Performed By: #### C BC #### [facility] [address] [address] [address] Beth Alanis MCH (RBC) [Entitic mass] 30.3 pg Normal 26.7-34.0 [facility] Comment on above: Performed By: #### C BC #### [facility] [address] [place] [address] Dr. Beth Alanis MCHC (RBC) [Mass/Vol] 33.1 g/dL Normal 29.9-35.2 [facility] Comment on above: Performed By: #### C BC #### [facility] [address] [place] [address] Dr. Beth Alanis MCV (RBC) [Entitic vol] 91.5 fL Normal 81.0-99.0 [facility] Comment on above: Performed By: #### C BC #### [facility] [address] [place] [address] Dr. Beth Alanis MONO # 0.9 103/ul Critically high 0.3-0.8 [facility] Comment on above: Performed By: #### C BC #### [facility] [address] [place] [address] Dr. Beth Alnais Monocytes/100 WBC (Bld) 8.9 % Normal 1.7-12.0 [facility] Comment on above: Performed By: #### C BC #### [facility] [address] [place] [address] Dr. Beth Alanis NEUT # 7.6 103/ul Critically high 1.4-6.5 [facility] Comment on above: Performed By: #### C BC #### [facility] [address] [place] [address] Dr. Beth Alanis Neutrophils/100 WBC (Bld) 71.4 % Normal 43.0-75.0 [facility] Comment on above: Performed By: #### C BC #### [facility] [address] [place] [address] Dr. Beth Alanis Platelet mean volume (Bld) [Entitic vol] 9.7 fL Normal 9.5-13.5 [facility] Comment on above: Performed By: #### C BC #### [facility] [address] [place] [address] Dr. Beth Alanis PLT 377 103/ul Normal 150-450 [facility] Comment on above: Performed By: #### C BC #### [facility] [address] [address] [address] Beth Alanis RBC 4.82 106/ul Normal 4.20-5.40 [facility] Comment on above: Performed By: #### C BC #### [facility] [address] [place] [address] Dr. Beth Alanis WBC 10.6 103/ul Normal 4.0-11.0 [facility] Comment on above: Performed By: #### C BC #### [facility] [address] [place] [address] Dr. Beth Alanis FREE THYROXINE INDEX T7on FTI 3.20 Normal 1.30-4.50 [facility] Comment on above: Performed By: #### C MP, T7, LIPID, TSH #### [facility] [address] [place] [address] Dr. Beth Alansi T3U 33.0 % Normal 30.0-39.0 [facility] Comment on above: Performed By: #### C MP, T7, LIPID, TSH #### [facility] [address] [place] [address] Dr. Beth Alanis T4 [Mass/Vol] 9.70 ug/dL Normal 4.80-13.90 [facility] Comment on above: Performed By: #### C MP, T7, LIPID, TSH #### [facility] [address] [place] [address] Dr. Beth Alanis GLYCOHEMOGLOBIN A1Con 2021 ADA RECOMMENDATION SEE BELOW Normal [facility] Comment on above: Result Comment: ADA RECOMMENDED LIMIT 4.0 - 6.0 ADA THERAPEUTIC TARGET < 7.0 ACTION SUGGESTED > 7.0 Performed By: #### [id number] #### [facility] [address] [place] [address] Dr. Beth Alanis Glucose [Mass/Vol] 114 mg/dL Normal [facility] Comment on above: Performed By: #### 4 [id number] #### [facility] [address] [address] [address] Beth Alanis HbA1c (Bld) [Mass fraction] 5.6 % Normal 4.5-6.2 [facility] Comment on above: Performed By: #### 4 [id number] #### [facility] [address] [address] [address] Beth Alanis IRONon 09-04-2021 Iron [Mass/Vol] 73.0 ug/dL Normal 50.0-170.0 [facility] Comment on above: Performed By: #### 4 [id number] #### [facility] [address] [place] [address] Dr. Beth Alanis LIPID PROFILEon 09-04-2021 CHOL-HDL RATIO NORM SEE BELOW Normal [facility] Comment on above: Result Comment: 3.3 - 4.4 LOW RISK 4.4 - 7.1 AVERAGE RISK 7.1 - 11.0 MODERATE RISK >11.0 HIGH RISK Performed By: #### 4 [id number] #### [facility] [address] [place] [address] Dr. Beth Alanis Cholesterol [Mass/Vol] 229 mg/dL Critically high <=200 [facility] Comment on above: Performed By: #### 4 [id number] #### [facility] [address] [address] [address] Beth Alanis Cholesterol in HDL [Mass/Vol] 49 mg/dL Normal 40-60 [facility] Comment on above: Performed By: #### 4 [id number] #### [facility] [address] [address] [address] Bteh Alanis Cholesterol in LDL [Mass/Vol] 160.2 mg/dL Normal [facility] Comment on above: Performed By: #### 4 [id number] #### [facility] [address] [place] [address] Dr. Beth Alanis Cholesterol.total/C holesterol in HDL [Mass ratio] 4.7 {ratio} Normal [facility] Comment on above: Performed By: #### 4 [id number] #### [facility] [address] [address] [address] Beth Alanis HDL NORMAL > or = 60 mg/dl - LO W CARDIOVASCULAR RISK <40 mg/dl - HIGH CARDIOVASCULAR RISK Normal [facility] Comment on above: Performed By: #### 4 [id number] #### [facility] [address] [address] [address] Beth Alanis LDL CALC NORMAL SEE BELOW Normal [facility] Comment on above: Result Comment: <100 mg/dl OPTIMAL 100 - 129 mg/dl NEAR OR ABOVE OPTIMAL 130 - 159 mg/dl BORDERLINE HIGH 160 - 189 mg/dl HIGH >190 mg/dl VERY HIGH Performed By: #### 4 [id number] #### [facility] [address] [place] [address] Dr. Beth Alanis Triglyceride [Mass/Vol] 99 mg/dL Normal <=150 [facility] Comment on above: Performed By: #### 4 [id number] #### [facility] [address] [address] [address] Beth Alanis VLDL CALC 19.8 mg/dL Normal [facility] Comment on above: Performed By: #### 4 [id number] #### [facility] [address] [address] [address] Beth Alanis PROF 14(COMP METB)on 022 Albumin [Mass/Vol] 3.6 g/dL Normal 3.4-5.0 [facility] Comment on above: Performed By: #### 4 [id number] #### [facility] [address] [place] [address] Dr. Beth Alanis Albumin/Globulin [Mass ratio] 0.8 {ratio} Normal [facility] Comment on above: Performed By: #### 4 [id number] #### [facility] [address] [place] [address] Dr. Beth Alanis ALP [Catalytic activity/Vol] 107 U/L Normal 46-116 [facility] Comment on above: Performed By: #### 4 [id number] #### [facility] [address] [address] [address] Beth Alanis ALT [Catalytic activity/Vol] 31 U/L Normal 14-59 [facility] Comment on above: Performed By: #### 4 [id number] #### [facility] [address] [address] [address] Beth Alanis Anion gap [Moles/Vol] 14.4 mmol/L Normal [facility] Comment on above: Performed By: #### 4 [id number] #### [facility] [address] [address] [address] Beth Alanis AST [Catalytic activity/Vol] 11 U/L Critically low 15-37 [facility] Comment on above: Performed By: #### 4 [id number] #### [facility] [address] [place] [address] Dr. Beth Alanis Bilirubin [Mass/Vol] 0.4 mg/dL Normal 0.2-1.0 [facility] Comment on above: Performed By: #### 4 [id number] #### [facility] [address] [place] [address] Dr. Beth Alanis Calcium [Mass/Vol] 9.0 mg/dL Normal 8.5-10.1 [facility] Comment on above: Performed By: #### 4 [id number] #### [facility] [address] [place] [address] Dr. Beth Alanis Chloride [Moles/Vol] 103 mmol/L Normal 98-107 [facility] Comment on above: Performed By: #### 4 [id number] #### [facility] [address] [place] [address] Dr. Beth Alanis CO2 [Moles/Vol] 24.7 mmol/L Normal 21.0-32.0 [facility] Comment on above: Performed By: #### 4 [id number] #### [facility] [address] [place] [address] Dr. Beth Alanis Creatinine [Mass/Vol] 0.92 mg/dL Normal 0.55-1.02 [facility] Comment on above: Performed By: #### 4 [id number] #### [facility] [address] [address] [address] Beth Alanis EGFR-AF LAO >60 Normal >=60 [facility] Comment on above: Performed By: #### 4 [id number] #### [facility] [address] [address] [address] Beth Alanis EGFR-NON AF LAO >60 Normal >=60 [facility] Comment on above: Performed By: #### 4 [id number] #### [facility] [address] [address] [address] Beth Alanis Globulin (S) [Mass/Vol] 4.5 g/dL Normal [facility] Comment on above: Performed By: #### 4 [id number] #### [facility] [address] [address] [address] Beth Alanis Glucose [Mass/Vol] 100 mg/dL Normal 74-106 [facility] Comment on above: Performed By: #### 4 [id number] #### [facility] [address] [address] [address] Beth Alanis Potassium [Moles/Vol] 4.1 mmol/L Normal 3.5-5.1 [facility] Comment on above: Performed By: #### 4 [id number] #### [facility] [address] [place] [address] Dr. Beth Alanis Protein [Mass/Vol] 8.1 g/dL Normal 6.4-8.2 [facility] Comment on above: Performed By: #### 4 [id number] #### [facility] [address] [place] [address] Dr. Beth Alanis Sodium [Moles/Vol] 138 mmol/L Normal 136-145 [facility] Comment on above: Performed By: #### 4 [id number] #### [facility] [address] [address] [address] Beth Alanis Urea nitrogen [Mass/Vol] 27.0 mg/dL Critically high 7.0-18.0 [facility] Comment on above: Performed By: #### 4 [id number] #### [facility] [address] [place] [address] Dr. Beth Alanis Urea nitrogen/Creatinine [Mass ratio] 29.3 mg/mg Normal [facility] Comment on above: Performed By: #### 4 [id number] #### [facility] [address] [place] [address] Dr. Beth Alanis TSHon 09-04-2021 TSH 3.758 uIU/mL Critically high 0.358-3.740 [facility] Comment on above: Performed By: #### C MP, T7, LIPID, TSH #### [facility] [address] [place] [address] Dr. Beth Alanis TSH RANGE SEE BELOW Normal [facility] Comment on above: Result Comment: <0.3 4 UIU/ml HYPERTHYROID 0.34-5.60 UIU/ml EUTHYROID >5.60 UIU/ml HYPOTHYROID Performed By: #### C MP, T7, LIPID, TSH #### [facility] [address] [place] [address] Dr. Beth Aalnis CTA HEART-CORONARY/ ARTERY B YPASS GRAFT WITH 3DPPon 04-26-2021 CTA HEART-CORONARY/ ARTERY BYPASS GRAFT WITH 3DPP [facility] Department of Radiology [address] [place] [id number] Patient Name: SHAILESH BLAKE : 1970 Sex: F Age: Race: White Pt. Location: [facility] Patient Status: D Ordered Date: 03/19/2021 8:55:00 AM Completed Date: 04/26/2021 11:45 AM Requesting Provider: MELANIA ABARCA Attending Provider: MELANIA ABARCA Report Copy To: Signs & Symptoms: R94.39 Abnormal result of other cardiovascular function study History: Order in RIS [phone] Is patient on meds for HTN or [...] achievable Electronically signed: Corazon Carter. Transcribed by: [email or web address], User Resident: Electronically Signed by: CORAZON CARTER @ 04/30/2021 09:22 AM Normal [facility] Vital Signs Date Time Vital Sign Value Performing Clinician Facility 06-04-2023 11:48-0500 Diastolic blood pressure 71 mm[Hg] MARINE DRAFTER-C Alyssa Arreola Work Phone: [facility] 06-04-2023 11:48-0500 Heart rate 76 /min MARINE [employer]RAF[facility]C Alyssa Arreola Work Phone: [facility] 06-04-2023 11:48-0500 Respiratory rate 16 /min MARINE DRAFTER-Jess Arreola Work Phone: [facility] 06-04-2023 11:48-0500 SaO2% (BldA) [Mass fraction] 95 % [employer]C Alyssa Arreola Work Phone: [facility] 06-04-2023 11:48-0500 Systolic blood pressure 126 mm[Hg] MARINE DRAFTER-C Alyssa Arreola Work Phone: [facility] 06-04-2023 09:51-0500 Body height 172.72 cm MARINE DRAFTER-C Alyssa Arreola Work Phone: [facility] 06-04-2023 09:51-0500 Body weight 146.51 kg MARINE DRAFTER-C Alyssa Arreola Work Phone: [facility] 05-19-2023 15:45-0500 Body height 168.91 cm Asif Cox Other [facility] Other 05-19-2023 15:45-0500 Body mass index (BMI) [Ratio] 54.69 kg/m2 Asif Cox Other [facility] Other 05-19-2023 15:45-0500 Body weight 156.04 kg Asif Cox Other [facility] Other 05-19-2023 15:45-0500 SaO2% (BldA) [Mass fraction] 97 % Asif Cox Other [facility] Other 04-09-2023 10:30-0500 Body height 168.91 cm Destini Kilgore Other [facility] Other 04-09-2023 10:30-0500 Body mass index (BMI) [Ratio] 54.3 kg/m2 Destini Kilgore Other [facility] Other 04-09-2023 10:30-0500 Body weight 154.95 kg Destini Kilgore Other [facility] Other 04-09-2023 10:30-0500 Diastolic blood pressure 87 mm[Hg] Destini Kilgore Other [facility] Other 04-09-2023 10:30-0500 SaO2% (BldA) [Mass fraction] 97 % Destini Kilgore Other [facility] Other 04-09-2023 10:30-0500 Systolic blood pressure 123 mm[Hg] Destini Kilgore Other [facility] Other 01-23-2023 16:00-0400 Body height 168.91 cm Asif Cox Other [facility] Other 01-23-2023 16:00-0400 Body mass index (BMI) [Ratio] 53.25 kg/m2 Asif Cox Other [facility] Other 01-23-2023 16:00-0400 Body weight 151.96 kg Asif Cox Other [facility] Other 01-23-2023 16:00-0400 Diastolic blood pressure 90 mm[Hg] Asif Cox Other [facility] Other 01-23-2023 16:00-0400 SaO2% (BldA) [Mass fraction] 97 % Asif Cox Other [facility] Other 01-23-2023 16:00-0400 Systolic blood pressure 140 mm[Hg] Asif Cox Other [facility] Other 01-09-2023 10:30-0400 Body height 168.91 cm Destini Kilgore Other [facility] Other 01-09-2023 10:30-0400 Body mass index (BMI) [Ratio] 53.25 kg/m2 Destini Kilgore Other [facility] Other 01-09-2023 10:30-0400 Body weight 151.96 kg Destini Kilgore Other [facility] Other 01-09-2023 10:30-0400 Diastolic blood pressure 86 mm[Hg] Destini Kilgore Other [facility] Other 01-09-2023 10:30-0400 Systolic blood pressure 124 mm[Hg] Destini Kilgore Other [facility] Other 11-07-2022 13:15-0400 Body height 168.91 cm Asif Garciaky Other [facility] Other 11-07-2022 13:15-0400 Body mass index (BMI) [Ratio] 55.32 kg/m2 Asif Garciaky Other [facility] Other 11-07-2022 13:15-0400 Body weight 157.85 kg Asif Cox Other [facility] Other 11-07-2022 13:15-0400 SaO2% (BldA) [Mass fraction] 95 % Asif Jackie Other [facility] Other 10-31-2022 16:00-0400 Body height 168.91 cm Asifjohn Cox Other [facility] Other 10-31-2022 16:00-0400 Body mass index (BMI) [Ratio] 54.62 kg/m2 Asif Garciaky Other [facility] Other 10-31-2022 16:00-0400 Body weight 155.86 kg Asif Cox Other [facility] Other 10-31-2022 16:00-0400 Diastolic blood pressure 84 mm[Hg] Asif Cox Other [facility] Other 10-31-2022 16:00-0400 SaO2% (BldA) [Mass fraction] 97 % Asif Cox Other [facility] Other 10-31-2022 16:00-0400 Systolic blood pressure 126 mm[Hg] Asif Cox Other [facility] Other 08-07-2022 17:30-0400 Body height 168.91 cm Asif Cox Other [facility] Other 08-07-2022 17:30-0400 Body mass index (BMI) [Ratio] 54.53 kg/m2 Asif Cox Other [facility] Other 08-07-2022 17:30-0400 Body weight 155.58 kg Asif Cox Other [facility] Other 08-07-2022 17:30-0400 Diastolic blood pressure 96 mm[Hg] Asif Cox Other [facility] Other 08-07-2022 17:30-0400 SaO2% (BldA) [Mass fraction] 99 % Asif Cox Other [facility] Other 08-07-2022 17:30-0400 Systolic blood pressure 142 mm[Hg] Asif Cox Other [facility] Other 07-24-2022 10:04-0400 Diastolic blood pressure 76 mm[Hg] MAR[facility] [employer]-C Alyssa Arreola Work Phone: [facility] 07-24-2022 10:04-0400 Heart rate 74 /min [facility] Alyssa Mortensenmer Work Phone: [facility] 07-24-2022 10:04-0400 Respiratory rate 18 /min [facility] Alyssa Arreola Work Phone: [facility] 07-24-2022 10:04-0400 SaO2% (BldA) [Mass fraction] 96 % [facility]C Alyssa Arreola Work Phone: [facility] 07-24-2022 10:04-0400 Systolic blood pressure 117 mm[Hg] MARINE DRAFTER-C Alyssa Mortensenmer Work Phone: [facility] 07-24-2022 09:23-0400 Inhaled oxygen flow rate 3 L/min [facility] [employer]C Alyssa Arreola Work Phone: [facility] 07-24-2022 08:46-0400 Body height 172.72 cm MARINE DRAFTER-C Alyssa Arreola Work Phone: [facility] 07-24-2022 08:46-0400 Body weight 136.07 kg MARINE DRAFTER-C Alyssa Arreola Work Phone: [facility] 07-08-2022 15:45-0400 Body height 168.91 cm Asif Cox Other [facility] [employer] Other 07-08-2022 15:45-0400 Body mass index (BMI) [Ratio] 56.59 kg/m2 Asifjohn Cox Other [facility] Other 07-08-2022 15:45-0400 Body weight 161.48 kg Asif Cox Other [facility] Other 07-08-2022 15:45-0400 Diastolic blood pressure 80 mm[Hg] Asif Cox Other [facility] Other 07-08-2022 15:45-0400 SaO2% (BldA) [Mass fraction] 97 % Asif Cox Other [facility] Other 07-08-2022 15:45-0400 Systolic blood pressure 120 mm[Hg] Asif Cox Other [facility] Other 05-17-2022 10:15-0500 Body height 168.91 cm Asif Cox Other [facility] Other 05-17-2022 10:15-0500 Body mass index (BMI) [Ratio] 55.93 kg/m2 Asif Cox Other [facility] Other 05-17-2022 10:15-0500 Body weight 159.58 kg Asif Cox Other [facility] Other 05-17-2022 10:15-0500 Diastolic blood pressure 86 mm[Hg] Asif Cox Other [facility] Other 05-17-2022 10:15-0500 SaO2% (BldA) [Mass fraction] 96 % Asif Cox Other [facility] Other 05-17-2022 10:15-0500 Systolic blood pressure 132 mm[Hg] Asif Cox Other [facility] Other 04-05-2022 13:15-0500 Body height 168.91 cm Asif Cox Other [facility] Other 04-05-2022 13:15-0500 Body mass index (BMI) [Ratio] 55.64 kg/m2 Asif Cox Other [facility] Other 04-05-2022 13:15-0500 Body weight 158.76 kg Asif Cox Other [facility] Other 04-05-2022 13:15-0500 Diastolic blood pressure 80 mm[Hg] Asif Jackie Other [facility] Other 04-05-2022 13:15-0500 SaO2% (BldA) [Mass fraction] 98 % Asif Jackie Other [facility] Other 04-05-2022 13:15-0500 Systolic blood pressure 124 mm[Hg] Asif Jackie Other [facility] Other 02-07-2022 14:45-0400 Body height 168.91 cm Asif Cox Other [facility] Other 02-07-2022 14:45-0400 Body mass index (BMI) [Ratio] 55.48 kg/m2 Asif Cox Other [facility] Other 02-07-2022 14:45-0400 Body weight 158.31 kg Asif Cox Other [facility] Other 02-07-2022 14:45-0400 Diastolic blood pressure 80 mm[Hg] Asif Jackie Other [facility] Other 02-07-2022 14:45-0400 SaO2% (BldA) [Mass fraction] 94 % Asif Cox Other [facility] Other 02-07-2022 14:45-0400 Systolic blood pressure 126 mm[Hg] Asif Cox Other [facility] Other 01-18-2022 13:15-0400 Body height 168.91 cm Asif Cox Other [facility] Other 01-18-2022 13:15-0400 Body mass index (BMI) [Ratio] 54.84 kg/m2 Asif Cox Other [facility] Other 01-18-2022 13:15-0400 Body weight 156.49 kg Asif Cox Other [facility] Other 01-18-2022 13:15-0400 Diastolic blood pressure 98 mm[Hg] Asif Cox Other [facility] Other 01-18-2022 13:15-0400 SaO2% (BldA) [Mass fraction] 97 % Asif Cox Other [facility] Other 01-18-2022 13:15-0400 Systolic blood pressure 132 mm[Hg] Aisf Cox Other [facility] Other 12-17-2021 11:45-0400 Body height 168.91 cm Asif Cox Other [facility] Other 12-17-2021 11:45-0400 Body mass index (BMI) [Ratio] 54.84 kg/m2 Asif Cox Other [facility] Other 12-17-2021 11:45-0400 Body weight 156.49 kg Asif Cox Other [facility] Other 12-17-2021 11:45-0400 Diastolic blood pressure 80 mm[Hg] Asif Cox Other [facility] Other 12-17-2021 11:45-0400 SaO2% (BldA) [Mass fraction] 97 % Asif Cox Other [facility] Other 12-17-2021 11:45-0400 Systolic blood pressure 110 mm[Hg] Asif Cox Other [facility] Other 10-15-2021 10:30-0400 Body height 168.91 cm Asif Cox Other [facility] Other 10-15-2021 10:30-0400 Body mass index (BMI) [Ratio] 54.3 kg/m2 Asif Cox Other [facility] Other 10-15-2021 10:30-0400 Body weight 154.95 kg Asif Cox Other [facility] Other 10-15-2021 10:30-0400 Diastolic blood pressure 70 mm[Hg] Asif Cox Other [facility] Other 10-15-2021 10:30-0400 SaO2% (BldA) [Mass fraction] 98 % Asif Cox Other [facility] Other 10-15-2021 10:30-0400 Systolic blood pressure 110 mm[Hg] Aisf Cox Other [facility] Other 09-13-2021 10:45-0400 Body height 168.91 cm Destini Kilgore Other [facility] Other 09-13-2021 10:45-0400 Body mass index (BMI) [Ratio] 54.21 kg/m2 Destini Kilgore Other [facility] Other 09-13-2021 10:45-0400 Body weight 154.68 kg Destini Kilgore Other [facility] Other 09-13-2021 10:45-0400 Diastolic blood pressure 74 mm[Hg] Destini Kilgore Other [facility] Other 09-13-2021 10:45-0400 Systolic blood pressure 124 mm[Hg] Destini Kilgore Other [facility] Other 08-02-2021 15:30-0400 Body height 168.91 cm Asif Cox Other [facility] Other 08-02-2021 15:30-0400 Body mass index (BMI) [Ratio] 52.71 kg/m2 Asif Cox Other [facility] Other 08-02-2021 15:30-0400 Body weight 150.41 kg Asif Jackie Other [facility] Other 08-02-2021 15:30-0400 Diastolic blood pressure 82 mm[Hg] Asifjohn Cox Other [facility] Other 08-02-2021 15:30-0400 SaO2% (BldA) [Mass fraction] 97 % Asif Jackie Other [facility] Other 08-02-2021 15:30-0400 Systolic blood pressure 134 mm[Hg] Asif Cox Other [facility] Other 07-09-2021 16:00-0400 Body height 168.91 cm Asif Cox Other [facility] Other 07-09-2021 16:00-0400 Diastolic blood pressure 80 mm[Hg] Asif Cox Other [facility] Other 07-09-2021 16:00-0400 SaO2% (BldA) [Mass fraction] 99 % Asif Cox Other [facility] Other 07-09-2021 16:00-0400 Systolic blood pressure 130 mm[Hg] Asif Cox Other [facility] Other 07-04-2021 15:30-0500 Body height 168.91 cm Mellissa Strange Other [facility] Other 07-04-2021 15:30-0500 Body mass index (BMI) [Ratio] 52.78 kg/m2 Mellissa Strange Other [facility] Other 07-04-2021 15:30-0500 Body weight 150.6 kg Mellissa Strange Other [facility] Other 07-04-2021 15:30-0500 Diastolic blood pressure 96 mm[Hg] Mellissa Strange Other [facility] Other 07-04-2021 15:30-0500 Systolic blood pressure 137 mm[Hg] Mellissa Strange Other [facility] Other 06-07-2021 11:15-0500 Body height 168.91 cm Destini Kilgore Other [facility] Other 06-07-2021 11:15-0500 Body mass index (BMI) [Ratio] 52.48 kg/m2 Destini Kilgore Other [facility] Other 06-07-2021 11:15-0500 Body weight 149.73 kg Destini Kilgore Other [facility] Other 06-07-2021 11:15-0500 Respiratory rate 18 /min Destini Kilgore Other [facility] Other 04-30-2021 15:00-0500 Body height 168.91 cm Asif Cox Other [facility] Other 04-30-2021 15:00-0500 Body mass index (BMI) [Ratio] 51.98 kg/m2 Asif Garciaky Other [facility] Other 04-30-2021 15:00-0500 Body weight 148.33 kg Asif Garciaky Other [facility] Other 04-30-2021 15:00-0500 Diastolic blood pressure 74 mm[Hg] Asif Jackie Other [facility] Other 04-30-2021 15:00-0500 Systolic blood pressure 116 mm[Hg] Asif Jackie Other [facility] Other 04-05-2021 17:00-0500 Body height 168.91 cm Asifjohn Cox Other [facility] Other 04-05-2021 17:00-0500 Body mass index (BMI) [Ratio] 50.93 kg/m2 Asif Jackie Other [facility] Other 04-05-2021 17:00-0500 Body weight 145.33 kg Asif Jackie Other [facility] Other 03-19-2021 12:15-0500 Body height 168.91 cm Asif Jackie Other [facility] Other 03-19-2021 12:15-0500 Body mass index (BMI) [Ratio] 49.92 kg/m2 Asif Jackie Other [facility] Other 03-19-2021 12:15-0500 Body weight 142.43 kg Asif Jackie Other [facility] Other 03-19-2021 12:15-0500 Diastolic blood pressure 80 mm[Hg] Asif Jackie Other [facility] Other 03-19-2021 12:15-0500 Systolic blood pressure 120 mm[Hg] Asif Jackie Other [facility] Other 02-26-2021 14:30-0400 Body height 168.91 cm Asif Jackie Other [facility] Other 02-26-2021 14:30-0400 Body mass index (BMI) [Ratio] 50.84 kg/m2 Asif Jackie Other [facility] Other 02-26-2021 14:30-0400 Body weight 145.06 kg Asif Jackie Other [facility] Other 02-26-2021 14:30-0400 Diastolic blood pressure 70 mm[Hg] Asifjohn Cox Other [facility] Other 02-26-2021 14:30-0400 SaO2% (BldA) [Mass fraction] 98 % Asif Jackie Other [facility] Other 02-26-2021 14:30-0400 Systolic blood pressure 118 mm[Hg] Asifjohn Cox Other [facility] Other Encounters Encounter Date Encounter Type Care Provider Facility Start: 07-15-2023 End: 07-16-2023 ambulatory Hermilo CORDOBA Facility[facility] Start: 07-08-2023 End: 07-09-2023 ambulatory KAYY CARDENAS Facility:[facility] Start: 07-08-2023 End: 07-08-2023 Lab Drop off KAYY CARDENAS [facility] Start: 07-08-2023 End: 07-09-2023 ambulatory Hermilo CORDOBA Facility:[facility] Start: 07-08-2023 End: 07-08-2023 Patient encounter procedure Hermilonelson CORDOBA [facility] Start: 06-24-2023 ambulatory KAYY CARDENAS Facili ty:[facility] Start: 06-05-2023 End: 06-05-2023 ambulatory Asif Cox Other [facility] [employer] Other Start: 06-05-2023 Telephone encounter Asif Cox [facility] Start: 06-04-2023 (PROC) [facility] Start: 06-04-2023 End: 06-04-2023 ambulatory Alyssa Arreola Facility:[facility] Start: 06-04-2023 End: 06-04-2023 Admission to same day surgery center MARINE DRAFTER-C Alyssapollo Mortensenmer Work Phone: [facility] Work Phone: Start: 06-04-2023 End: 06-04-2023 ambulatory MARINE DRAFTER-C Alyssa Lesly Maxwell Work Phone: [facility] Work Phone: Start: 05-28-2023 End: 05-29-2023 ambulatory KAYY CARDENAS Facility:[facility] Start: 05-28-2023 End: 05-28-2023 Patient encounter procedure KAYY CARDENAS [facility] Start: 05-19-2023 End: 05-19-2023 ambulatory Asif Cox Facility:[facility] Start: 05-19-2023 End: 05-19-2023 Patient encounter procedure MARINE DRAFTER-C Alyssapollo Mortensenmer Work Phone: [facility] Work Phone: Start: 05-19-2023 End: 05-19-2023 ambulatory MARINE DRAFTER-C Alyssa Lesly Maxwell Work Phone: [facility] Work Phone: Start: 05-19-2023 Office outpatient visit 25 minutes Asif Jackie [facility] Start: 05-19-2023 End: 05-19-2023 Patient encounter procedure MARINE DRAFTER-C Alyssa Maxwell Work Phone: [facility]- Start: 04-16-2023 End: 04-16-2023 ambulatory Asif Jackie Other [facility] Other Start: 04-16-2023 Telephone encounter Asif Jackie [facility] Start: 04-09-2023 Office outpatient visit 25 minutes Destini Kilgore [facility] Start: 04-09-2023 End: 04-09-2023 ambulatory MARINE DRAFTER-C Alyssa Lesly Maxwell Work Phone: [facility] Work Phone: Start: 04-09-2023 End: 04-09-2023 Patient encounter procedure MARINE DRAFTER-C Alyssa Arreola Work Phone: [facility] [place] Work Phone: Start: 04-09-2023 End: 04-09-2023 Patient encounter procedure MARINE DRAFTER-C Alyssa Arreola Work Phone: [facility] Work Phone: Start: 04-08-2023 ambulatory Alexey Butts acility:[facility] Start: 03-06-2023 Registered Recurring MARINE DRAFTER-C Alanis Azar Work Phone: [facility] Start: 02-25-2023 Registered Recurring MARINE DRAFTER-C Alanis Azar Work Phone: [facility] Start: 01-23-2023 End: 01-23-2023 ambulatory Asif Cox Other [facility] Other Start: 01-23-2023 Patient encounter procedure Asif Jackie [facility] Start: 01-09-2023 End: 01-09-2023 ambulatory Destini Kilgore Other [facility] Other Start: 01-09-2023 Office outpatient visit 25 minutes Destini Kilgore [facility] Start: 12-17-2022 End: 12-18-2022 ambulatory Dioni Flores Facility:[facility] Zayra batres Start: 11-07-2022 End: 11-07-2022 ambulatory Asif Jackie Other [facility] Other Start: 11-07-2022 Office outpatient visit 25 minutes Asif Jackie [facility] Start: 10-31-2022 End: 10-31-2022 ambulatory Asif S Jackie [facility] [employer] Other Start: 10-31-2022 Office outpatient visit 25 minutes Asif Cox [facility] Start: 10-08-2022 ambulatory Hermilo CORDOBA Facility : [facility] Start: 08-26-2022 End: 08-27-[address] MARTI JEREZ . Facility:[facility] Start: 08-07-2022 End: 08-07-2022 ambulatory Asif Cox Other [facility] [employer] Other Start: 08-07-2022 Office outpatient visit 15 minutes Asif Cox [facility] Start: 08-05-2022 End: 08-05-[address] MARTI JEREZ . Facility:[facility] Start: 07-24-2022 (PROC) PROCEDURE Asif Cox [facility] Start: 07-24-2022 End: 07-24-2022 Admission to same day surgery center MARINE DRAFTER-C Alyssa Arreola Work Phone: [facility] Work Phone: Start: 07-24-2022 End: 07-24-2022 ambulatory MARINE DRAFTER-C Alyssa Arreola Work Phone: [facility] Work Phone: Start: 07-14-2022 End: 07-14-2022 ambulatory FRANNIE DIAB . Facility:[facility] Start: 07-08-2022 Office outpatient visit 25 minutes Asif Cox [facility] Start: 07-08-2022 End: 07-08-2022 ambulatory Asif Cox Facility:[facility] Start: 07-08-2022 End: 07-08-2022 ambulatory MARINE DRAFTER-C Alyssa Arreola Work Phone: [facility] Work Phone: Start: 07-08-2022 End: 07-08-2022 Patient encounter procedure MARINE DRAFTER-C Alyssa Arreola Work Phone: [facility] [place] Work Phone: Start: 05-20-2022 End: 05-20-[address] MARTI JEREZ . Facility:[facility] Start: 05-17-2022 End: 05-17-2022 ambulatory Asif Jackie Other [facility] Other Start: 05-17-2022 Office outpatient visit 25 minutes Asif Jackie [facility] Start: 05-01-2022 End: 05-25-2022 ambulatory ASIF JACKIE Facility:[facility] Start: 04-05-2022 Office outpatient visit 25 minutes Asif Jackie [facility] Start: 04-05-2022 End: 04-05-2022 ambulatory MARINE DRAFTER-C Alyssa Arreola Work Phone: [facility] Other Start: 04-05-2022 End: 04-05-2022 Patient encounter procedure MARINE DRAFTER-C Alyssa Arreola Work Phone: [facility] Start: 03-18-2022 End: 03-19-2022 ambulatory ALYSSA ARREOLA Facility:[facility] Start: 02-07-2022 End: 02-07-2022 ambulatory Asif Jackie Other [facility] Other Start: 02-07-2022 Patient encounter procedure Asif Jackie [facility] Start: 01-18-2022 End: 01-18-2022 ambulatory Asif Jackie Other [facility] Other Start: 01-18-2022 Office outpatient visit 25 minutes Asif Jackie [facility] [place] Start: 12-24-2021 End: 12-24-2021 Patient encounter procedure MARINE DRAFTER-C Alyssa Arreola Work Phone: [facility] Start: 12-17-2021 End: 12-17-2021 ambulatory Asif Jackie Other [facility] Other Start: 12-17-2021 Office outpatient visit 25 minutes Asif Jackie [facility] Start: 11-26-2021 ambulatory ALYSSA ARREOLA Facility: [facility] Start: 11-22-2021 End: 11-23-[address] MARTI JEREZ . Facility:[facility] Start: 11-21-2021 End: 11-22-2021 ambulatory SUSIE ESTRADA Facility:[facility] Start: 10-23-2021 End: 10-23-[address] NUBIA WHYTE . Facility:[facility] Start: 10-16-2021 End: 11-23-2021 ambulatory ALYSSA ARREOLA Facility:[facility] Start: 10-15-2021 End: 10-15-2021 ambulatory Asif Cox Other [facility] Other Start: 10-15-2021 Office outpatient visit 25 minutes Asif Cox [facility] Start: 10-15-2021 End: 10-15-2021 Patient encounter procedure MARINE DRAFTER-C Alyssa Arreola Work Phone: [facility] Start: 10-12-[address] MARTI JEREZ . Facili ty:[facility] Start: 10-09-2021 End: 10-09-2021 Lab Drop off Virgilio Rhoades [facility] Start: 10-09-2021 End: 10-09-2021 Patient encounter procedure Cipriano Romero Jr. [facility]ul Start: 09-19-2021 End: 09-19-2021 ambulatory Destini Kilgore Other [facility] Other Start: 09-19-2021 Telephone encounter Destini Kilgore [facility] Start: 09-13-2021 End: 09-13-2021 ambulatory Destini Kilgore Other [facility] Other Start: 09-13-2021 Office outpatient visit 15 minutes Destini Kilgore [facility] Start: 09-06-2021 End: 05-12-2022 ambulatory ALYSSA ARREOLA Facility:[facility] Start: 09-04-2021 End: 09-05-2021 ambulatory ALYSSA ARREOLA Facility:[facility] Start: 08-15-2021 (Procedure) Short Asif Cox [facility] Start: 08-15-2021 End: 08-15-2021 ambulatory Asif Cox Other [facility] Other Start: 08-09-2021 End: 08-09-2021 Lab Drop off KAYY Chitra CROWERY [facility] Start: 08-09-2021 End: 08-09-2021 Patient encounter procedure KAYY Chitra CROWERY [facility] [place] Start: 08-02-2021 End: 08-02-2021 ambulatory Asfi Cox Other [facility] Other Start: 08-02-2021 Office outpatient visit 25 minutes Asif Jackie [facility] Start: 07-09-2021 End: 07-09-2021 ambulatory Mellissa Perezmary Other [facility] Other Start: 07-09-2021 Office outpatient visit 25 minutes Asif Jackie [facility] Start: 07-09-2021 Telephone encounter Mellissa Strange [facility] Start: 07-04-2021 End: 07-04-2021 ambulatory Mellissa Strange Other [facility] Other Start: 07-04-2021 Office outpatient new 30 minutes Mellissa Strange [facility] Start: 06-07-2021 End: 06-07-2021 ambulatory Destini Kilgore Other [facility] Other Start: 06-07-2021 Office outpatient visit 25 minutes Destini Kilgore [facility] Start: 05-08-2021 (Procedure) Short Asif Cox [facility] Start: 05-08-2021 End: 05-08-2021 ambulatory Asif Cox Other [facility] Other Start: 04-30-2021 End: 04-30-2021 ambulatory Asif Cox Other [facility] Other Start: 04-30-2021 Office outpatient visit 25 minutes Asif Cox [facility] Start: 04-26-2021 End: 04-27-2021 ambulatory EHAB A [facility] Facility:[facility] Start: 04-19-2021 (Procedure) Enzo Cox [facility] Start: 04-19-2021 End: 04-19-2021 ambulatory Asif Cox Other [facility] Other Start: 04-05-2021 End: 04-05-2021 ambulatory Asif Cox Other [facility] Other Start: 04-05-2021 Office outpatient visit 25 minutes Asif Cox [facility] Start: 03-29-2021 (Procedure) Enzo Cox [facility] Start: 03-29-2021 End: 03-29-2021 ambulatory Asif Cox Other [facility] Other Start: 03-19-2021 End: 03-19-2021 ambulatory Asif Cox Other [facility] Other Start: 03-19-2021 Office outpatient visit 25 minutes Asif Cox [facility] Start: 03-07-2021 (Procedure) Enzo Cox [facility] Start: 03-07-2021 End: 03-07-2021 ambulatory Asif Cox Other [facility] Other Start: 02-26-2021 End: 02-26-2021 ambulatory Asif Cox Other [employer] Other Start: 02-26-2021 Office outpatient visit 25 minutes Asif Cox [facility] Procedures Date Procedure Procedure Detail Performing Clinician Start: 06-04-2023 DH Nerve Radio Frequ ency (Bilateral) MARINE DRAFTER-C Alyssa Maxwell Work Phone: Start: 05-19-2023 X-ray of lumbar spin e, four views MARINE DRAFTER-C Alyssa Maxwell Work Phone: Start: 04-09-2023 Plain X-ray of left hip MARINE DRAFTER-C Alyssa Maxwell Work Phone: Start: 07-24-2022 DH Nerve Radio Frequ ency (Bilateral) MARINE DRAFTER-C Alyssa Maxwell Work Phone: Start: 07-08-2022 Plain X-ray of right shoulder MARINE DRAFTER-C Alyssa Maxwell Work Phone: Start: 04-05-2022 X-ray of cervical spine MARINE DRAFTER-C Alyssa Maxwell Work Phone: Start: 12-24-2021 MR thoracic spine wo con MARINE DRAFTER-C Alyssa Maxwell Work Phone: Start: 10-15-2021 Radiography of thora cic spine MARINE DRAFTER-C Alyssa Maxwell Work Phone: Start: 02-20-2021 Cystoscopy KAYY ROBERTSON Start: 01-04-2020 Cystoscopy KAYY ROBERTSON Start: 06-02-2018 cysto/ botox KAYY CASTELLONY Start: 01-28-2017 cystoscopy KAYY ROBERTSON back surgery KAYY CARDENAS carpel tunnel release SAGE CARDENAS cesearian section KAYY ROBERTSON Cholecystectomy KAYY CALDERON D&C KAYY CARDENAS H/O: tubal ligation KAYY CARDENAS Plan of Treatment Date Care Activity Detail Author Start: 07-29-2023 ambulatory Ambulatory Facility:[facility] Start: 06-04-2023 [facility] Start: 07-24-2022 [facility] Patient Education Jackie Non Diagnostic Blo ck [facility] Work Phone: Patient referral [facility] Work Phone: Immunizations Immunization Date Immunization Notes Care Provider Fa pito 10-07-2021 SARS-CoV-2 mRNA (aeskwlsrxjl-cify-xvzy ose) vaccine KAYY CARDENAS [facility] 10-07-2021 zoster vaccine recombinant KAYY CARDENAS [facility] 2020 SARS-CoV-2 (COVID-19 ) mRNA BNT-162b2 vax KAYY CARDENAS [facility] 12-02-2020 SARS-CoV-2 (COVID-19 ) mRNA BNT-162b2 vax KAYY CARDENAS [facility] 01-09-2015 influenza virus vaccine, unspecified formulation KAYY CARDENAS [facility] NEGATED: Highlighted row has not occurred!07-31-2020 influenza virus vaccine, unspecified formulation KAYY CARDENAS [facility] Payers Date Payer Category Payer Self-pay [id number] 2022 Medicaid [id number] 2022 Self-pay [id number] 1970 Unknown [id number] 2.16.8 40.1.639054.3.579.2.647 1969 Unknown [id number] 2.16.84 0.1.443315.3.579.2.593 1969 Unknown [id number] .16.84 0.1.453248.3.579.2.593 1969 Unknown [id number] 2.16.84 0.1.512439.3.579.2.593 1969 Unknown [id number] 2.16.84 0.1.119338.3.579.2.593 1969 Unknown [id number] 2.16.84 0.1.048952.3.579.2.593 1969 Unknown [id number] .16.84 0.1.380380.3.579.2.593 1969 Unknown [id number] 2.16.84 0.1.685420.3.579.2.593 1969 Unknown [id number] .16.84 0.1.936781.3.579.2.593 1969 Unknown [id number] 2.16.84 0.1.197431.3.579.2.593 1969 Unknown [id number] 2.16.84 0.1.326419.3.579.2.593 1969 Unknown [id number] 2.16.84 0.1.078694.3.579.2.593 1969 Unknown [id number] 2.16.84 0.1.959962.3.579.2.593 1969 Unknown [id number] 2.16.84 0.1.077116.3.579.2.593 1969 Unknown [id number] 2.16.84 0.1.273194.3.579.2.593 1969 Unknown [id number] 2.16.8 40.1.257198.3.579.2.727 1969 Unknown [id number] 2.16.8 40.1.462637.3.579.2.727 1969 Unknown [id number] 2.16.8 40.1.608952.3.579.2.727 1969 Unknown [id number] 2.16.8 40.1.547367.3.579.2.727 1969 Unknown [id number] 2.16.8 40.1.168659.3.579.2.727 1969 Unknown [id number] 2.16.8 40.1.134404.3.579.2.727 1969 Unknown [id number] 2.16.8 40.1.349683.3.579.2.727 1959 Unknown [id number] Unknown [id number] 2.1 6.840.1.405527.19 Unknown [place] [employer] [id number] Unknown [place] [employer] [id number] Unknown [id number] 2.16.8 40.1.133039.3.579.2.531 Unknown [id number] 2.16.8 40.1.215325.3.579.2.531 Unknown [id number] 2.16.8 40.1.172342.3.579.2.531 Unknown [id number] 2.16.8 40.1.668895.3.579.2.531 Unknown [id number] 2.16.8 40.1.289589.3.579.2.531 Unknown [id number] 2.16.8 40.1.009022.3.579.2.531 Unknown [id number] 2.16.8 40.1.766832.3.579.2.531 Social History Date Type Detail Facility Start: 12-29-2020 End: 05-28-2023 Tobacco smoking status Never smoked tobacco (finding) [facility] [employer] Other Sex Assigned At Female [facility] Other Start: 08-29-2021 End: 07-24-2022 Tobacco smoking status OHIS Ex-smoker (finding) [facility] Start: 1970 Sex Assigned At Female [facility] Tobacco smoking status Never [facility] Goals Date Patient Goal Desired Activity /State Functional Status Date Assessment Result Facility 05-28-2023 Functional Status N/A [facility] Clinical Notes 03-19-2021 to 07-15-2023 Note Date & Type Note Facility 07-15-2023 Note [id number] [facility] 07-15-2023 Note Custom Cystoscopy with Botox injection ? Voiding after the procedure: there may be some pain, burning, urgency, frequency and blood tinged urine following the procedure. These symptoms usually resolve within 2-5 days. Drink the amount of fluid it takes to keep the urine pink to yellow or clear in color. Drinking enough water and fluids will help to ease any discomfort after your procedure. ? It may take a few days to a week to notice a gradual improvement in the overactive bladder symptoms. ? If you are having problems that seem out of the ordinary, please call. ? If unable to contact your physician and you feel it is an emergency, go to the nearest emergency room or call 911 ? Do not lift more than fifteen pounds for 1-2 days. If you see a lot of blood, you probably did too much. ? Diet ? you may resume your normal diet. ? Pain control ? You may take extra strength Tylenol or Motrin for discomfort. ? Call if you have a fever over 100 degrees. [facility] 06-05-2023 Evaluation note Encounter Date Diagnosis Assessment Notes May, Fibromyalgia (ICD-10 - M79.7) [facility] Other [facility] Dis[facility] instructions Patient Education 05/28/2023 16:17:13 Botulinum Toxin Bladder Injection Botulinum Toxin Bladder Injection A botulinum toxin bladder injection is a procedure to treat an overactive bladder. During the procedure, a drug called botulinum toxin is injected into the bladder through a long, thin needle. This drug relaxes the bladder muscles and reduces overactivity. You may need this procedure if your medicines are not working or you cannot take them. The procedure may be repeated as needed. The treatment is done once and it usually lasts for 6 months. Your health care provider will monitor you to see how well you respond. Tell a health care provider about: Any allergies you have. All medicines you are taking, including vitamins, herbs, eye drops, creams, and qgne-jbc-jmitpiv medicines. Any problems you or family members have had with anesthetic medicines. Any bleeding problems you have. Any surgeries you have had. Any medical conditions you have. Any previous reactions to a botulinum toxin injection. Any symptoms of urinary tract infection. These include chills, fever, a burning feeling when passing urine, and needing to pass urine often. Whether you are or may be . What are the risks? Generally this is a safe procedure. However, problems may occur, including: Not being able to pass urine. If this happens, you may need to have your bladder emptied with a thin tube (urinary catheter). Bleeding. Urinary tract infection. Allergic reaction to the botulinum toxin. Pain or burning when passing urine. Damage to nearby structures or organs. What happens before the procedure? When to stop eating and drinking Follow instructions from your health care provider about what you may eat and drink before your procedure. These may include: 8 hours before the procedure ?Stop eating most foods. Do not eat meat, fried foods, or fatty foods. ?Eat only light foods, such as toast or crackers. ?All liquids are okay except energy drinks and alcohol. 6 hours before the procedure ?Stop eating. ?Drink only clear liquids, such as water, clear fruit juice, black coffee, plain tea, and sports drinks. ?Do not drink energy drinks or alcohol. 2 hours before the procedure ?Stop drinking all liquids. ?You may be allowed to take medicines with small sips of water. If you do not follow your health care provider's instructions, your procedure may be delayed or canceled. Medicines Ask your health care provider about: Changing or stopping your regular medicines. This is especially important if you are taking diabetes medicines or blood thinners. Taking medicines such as aspirin and ibuprofen. These medicines can thin your blood. Do not take these medicines unless your health care provider tells you to take them. Taking izgq-tna-lxujvwh medicines, vitamins, herbs, and supplements. General instructions Ask your health care provider what steps will be taken to help prevent infection. These steps may include: ?Removing hair at the procedure site. ?Washing skin with a germ-killing soap. ?Taking antibiotic medicine. If you will be going home right after the procedure, plan to have a responsible adult: ?Take you home from the hospital or clinic. You will not be allowed to drive. ?Care for you for the time you are told. What happens during the procedure? You will be asked to empty your bladder. An IV will be inserted into one of your veins. You will be given one or more of the following: ?A medicine to help you relax (sedative). ?A medicine to numb the area (local anesthetic). ?A medicine to make you fall asleep (general anesthetic). A long, thin scope called a cystoscope will be passed into your bladder through the part of the body that carries urine from your bladder (urethra). The cystoscope will be used to fill your bladder with water. A long needle will be passed through the cystoscope and into the bladder. The botulinum toxin will be injected into your bladder. It may be injected into multiple areas of your bladder. The cystoscope will be removed and your bladder will be emptied with a urinary catheter. The procedure may vary among health care providers and hospitals. What can I expect after the procedure? After your procedure, it is common to have: Blood-tinged urine. Burning or soreness when you pass urine. Follow these instructions at home: Medicines Take xxjs-udu-kuqrrfh and prescription medicines only as told by your health care provider. If you were prescribed an antibiotic medicine, take it as told by your health care provider. Do notstop using the antibiotic even if you start to feel better. General instructions If you were given a sedative during the procedure, it can affect you for several hours. Do not drive or operate machinery until your health care provider says that it is safe. Drink enough fluid to keep your urine pale yellow. Return to your normal activities as told by your health care provider. Ask your health care provider what activities are safe for you. Keep all follow-up visits. Contact a health care provider if you have: A fever or chills. Blood-tinged urine for more than one day after your procedure. Worsening pain or burning when you pass urine. Pain or burning when passing urine for more than two days after your procedure. Trouble emptying your bladder. Get help right away if you: Have bright red blood in your urine. Are unable to pass urine. Summary A botulinum toxin bladder injection is a procedure to treat an overactive bladder. This is generally a safe procedure. However, problems may occur, including not being able to pass urine, bleeding, infection, pain, and an allergic reaction to the botulinum toxin. You will be told when to stop eating and drinking, and what medicines to change or stop. Follow instructions carefully. After the procedure, it is common to have blood in your urine and to have soreness or burning when passing urine. Contact a health care provider if you have a fever, blood in your urine for more than a few days, or trouble passing urine. Get help right away if you have bright red blood in your urine, or if you are unable to pass urine. This information is not intended to replace advice given to you by your health care provider. Make sure you discuss any questions you have with your health care provider. Document Revised: 10/19/2021 Document Reviewed: 10/19/2021 [employer] Patient Education 2022 [email or web address]. 05/28/2023 16:17:08 Urinary Incontinence Urinary Incontinence Urinary incontinence refers to a condition in which a person is unable to control where and when topass urine. A person with this condition will urinate involuntarily. This means that the person urinates when he or she does not mean to. What are the causes? This condition may be caused by: Medicines. Infections. Constipation. Overactive bladder muscles. Weak bladder muscles. Weak pelvic floor muscles. These muscles provide support for the bladder, intestine, and, in women,the uterus. Enlarged prostate in men. The prostate is a gland near the bladder. When it gets too big, it can pinch the urethra. With the urethra blocked, the bladder can weaken and lose the ability to empty properly. Surgery. Emotional factors, such as anxiety, stress, or post-traumatic stress disorder (PTSD). Spinal cord injury, nerve injury, or other neurological conditions. Pelvic organ prolapse. This happens in women when organs move out of place and into the vagina. This movement can prevent the bladder and urethra from working properly. What increases the risk? The following factors may make you more likely to develop this condition: Age. The older you are, the higher the risk. Obesity. Being physically inactive. and childbirth. Menopause. Diseases that affect the nerves or spinal cord. Long-term, or chronic, coughing. This can increase pressure on the bladder and pelvic floor muscles. What are the signs or symptoms? Symptoms may vary depending on the type of urinary incontinence you have. They include: A sudden urge to urinate, and passing urine involuntarily before you can get to a bathroom (urge incontinence). Suddenly passing urine when doing activities that force urine to pass, such as coughing, laughing, exercising, or sneezing (stress incontinence). Needing to urinate often but urinating only a small amount, or constantly dribbling urine (overflowincontinence). Urinating because you cannot get to the bathroom in time due to a physical disability, such as arthritis or injury, or due to a communication or thinking problem, such as Alzheimer's disease (functional incontinence). How is this diagnosed? This condition may be diagnosed based on: Your medical history. A physical exam. Tests, such as: ?Urine tests. ?X-rays of your kidney and bladder. ?Ultrasound. ?CT scan. ?Cystoscopy. In this procedure, a health care provider inserts a tube with a light and camera (cystoscope) through the urethra and into the bladder to check for problems. ?Urodynamic testing. These tests assess how well the bladder, urethra, and sphincter can store and release urine. There are different types of urodynamic tests, and they vary depending on what the test is measuring. To help diagnose your condition, your health care provider may recommend that you keep a log of when you urinate and how much you urinate. How is this treated? Treatment for this condition depends on the type of incontinence that you have and its cause. Treatment may include: Lifestyle changes, such as: ?Quitting smoking. ?Maintaining a healthy weight. ?Staying active. Try to get 150 minutes of moderate-intensity exercise every week. Ask your health care provider which activities are safe for you. ?Eating a healthy diet. ?Avoid high-fat foods, like fried foods. ?Avoid refined carbohydrates like white bread and white rice. ?Limit how much alcohol and caffeine you drink. ?Increase your fiber intake. Healthy sources of fiber include beans, whole grains, and fresh fruitsand vegetables. Behavioral changes, such as: ?Pelvic floor muscle exercises. ?Bladder training, such as lengthening the amount of time between bathroom breaks, or using the bathroom at regular intervals. ?Using techniques to suppress bladder urges. This can include distraction techniques or controlled breathing exercises. Medicines, such as: ?Medicines to relax the bladder muscles and prevent bladder spasms. ?Medicines to help slow or prevent the growth of a man's prostate. ?Botox injections. These can help relax the bladder muscles. Treatments, such as: ?Using pulses of electricity to help change bladder reflexes (electrical nerve stimulation). ?For women, using a caregivers non medical to prevent urine leaks. This is a small, tampon-like, disposabledevice that is inserted into the urethra. ?Injecting collagen or carbon beads (bulking agents) into the urinary sphincter. These can help thicken tissue and close the bladder opening. ?Surgery. Follow these instructions at home: Lifestyle Limit alcohol and caffeine. These can fill your bladder quickly and irritate it. Keep yourself clean to help prevent odors and skin damage. Ask your health care provider about special skin creams and cleansers that can protect the skin from urine. Consider wearing pads or adult diapers. Make sure to change them regularly, and always change them right after experiencing incontinence. General instructions Take eknk-tgl-mcsusrx and prescription medicines only as told by your health care provider. Use the bathroom about every 3 4 hours, even if you do not feel the need to urinate. Try to empty your bladder completely every time. After urinating, wait a minute. Then try to urinate again. Make sure you are in a relaxed position while urinating. If your incontinence is caused by nerve problems, keep a log of the medicines you take and the times you go to the bathroom. Keep all follow-up visits. This is important. Where to find more information National [place] of Diabetes and Digestive and Kidney Diseases: www.niddk.nih.gov [employer] [place] [employer] Association: www.urologyhealth.org Contact a health care provider if: You have pain that gets worse. Your incontinence gets worse. Get help right away if: You have a fever or chills. You are unable to urinate. You have redness in your groin area or down your legs. Summary Urinary incontinence refers to a condition in which a person is unable to control where and when topass urine. This condition may be caused by medicines, infection, weak bladder muscles, weak pelvic floor muscles, enlargement of the prostate (in men), or surgery. Factors such as older age, obesity, and childbirth, menopause, neurological diseases, andchronic coughing may increase your risk for developing this condition. Types of urinary incontinence include urge incontinence, stress incontinence, overflow incontinence, and functional incontinence. This condition is usually treated first with lifestyle and behavioral changes, such as quitting smoking, eating a healthier diet, and doing regular pelvic floor exercises. Other treatment options include medicines, bulking agents, medical devices, electrical nerve stimulation, or surgery. This information is not intended to replace advice given to you by your health care provider. Make sure you discuss any questions you have with your health care provider. Document Revised: 11/17/2020 Document Reviewed: 11/17/2020 [employer] Patient Education 2022 [email or web address]. Follow Up Care 04/22/2023 13:23:48 With:KAYY CARDENAS PA-C, URL Address: [address] [place] [address] [phone] When: Unknown Comments:sched cysto or Botox [facility] 01-22-2024 Evaluation note* Encounter Date Diagnosis Assessment Notes Treatment Notes Treatment Clinical Notes Apr, Lumbosacral spondylosis without myelopathy (ICD-10 [...] (ICD-10 - M79.7) Continue medications as prescribed [facility] Other 12-13-2023 Evaluation note* Encounter Date Diagnosis [...] medication related side effects. UDS performed through [facility] today, will await confirmatory results. [facility] Other 09-28-2023 Evaluation note* Encounter Date Diagnosis [...] pain (ICD-10 - G89.29) Continue taking medications [facility] Other 09-14-2023 Evaluation note* Encounter Date Diagnosis [...] 400 mg, two to three times daily [facility] Other 07-13-2023 Evaluation note* Encounter Date Diagnosis [...] close to needing a refill of Gabapentin [facility] Other 07-06-2023 Evaluation note* Encounter Date Diagnosis [...] Stable. Oct, Sacroiliitis (ICD-10 - M46.1) Stable. [facility] Other 04-12-2023 Evaluation note* Encounter Date Diagnosis [...] - M46.1) Follow up in 4 weeks [facility] Encounter Date Diagnosis Assessment [...] Proceed with updated imaging of the shoulder. [facility] Other 01-20-2023 Evaluation note* Encounter Date Diagnosis [...] Proceed with updated imaging of the shoulder. [facility] Other 12-09-2022 Evaluation note* Encounter Date Diagnosis [...] schedule her next appointment to refill this. [facility] Other 10-13-2022 Evaluation note* Encounter Date Diagnosis [...] M47.817) Stable. Continue with current treatment plan. [facility] Other 09-23-2022 Evaluation note* Encounter Date Diagnosis [...] - G89.29) Continue taking Gabapentin as prescribed. [facility] Other 08-22-2022 Evaluation note* Encounter Date Diagnosis [...] - G89.29) Continue taking Gabapentin as prescribed. [facility] Other 06-20-2022 Evaluation note* Encounter Date Diagnosis [...] to use as tolerated for pain relief. [facility] Other 06-14-2022 Evaluation + Plan note Diagnostic Tests Pending * Urine Culture 10/09/21 [facility]05-19-2022 Evaluation note* Encounter Date Diagnosis Assessment Notes [...] time. August, Chronic pain (ICD-10 - G89.29) [facility] Other [id number] Evaluation + Plan note Diagnostic Tests Pending * Urine Culture 08/09/21 [facility]04-14-2022 Hospital Discharge instructions Patient Education 08/09/2021 11:27:41 [...] fried and sweet foods. General instructions Take uymu-fwe-wjtwape and prescription medicines only as told by [...] 02/08/2010 Document Revised: 08/05/2019 Document Reviewed: 04/30/2018 [employer] Patient Education 2020 [email or web address]. Follow Up Care 07/11/2021 12:59:04 With:THERESA MOCTEZUMA, KAYY Buenrostro, URL Address: [address] [place] [address] [phone] When: Unknown [facility] 04-07-2022 Evaluation note* Encounter Date [...] time. Jul, Chronic pain (ICD-10 - G89.29) [facility] Other 03-14-2022 Evaluation note* Encounter Date Diagnosis [...] (ICD-10 - G89.29) Continue medications as prescribed [facility] Other 03-09-2022 Evaluation note* Encounter Date Diagnosis Assessment Notes Treatment Notes Treatment Clinical Notes Jun, GERD (gastroesophageal reflux disease) (ICD-10 - K21.9) Jun, Irritable bowel syndrome with constipation (ICD-10 - K58.1) Jun, Morbid obesity (ICD-10 - E66.01) [facility] Other 02-10-2022 Evaluation note* Encounter Date Diagnosis [...] (ICD-10 - G89.29) Continue medications as prescribed [facility] Other 12-09-2021 Evaluation note* Encounter Date Diagnosis [...] (ICD-10 - G89.29) Continue medications as prescribed [facility] Other 11-22-2021 Evaluation note* Encounter Date Diagnosis [...] (ICD-10 - G89.29) Continue medications as prescribed [facility] Other Evaluation + Plan note No data available for this section [facility] Evaluation + Plan note Future Appointments Appointment Date:07/15/2023 08:30:00 AM Scheduled Provider: Location:[facility] Appointment Type:Urology FT Appointment Date:07/29/2023 02:40:00 PM Scheduled Provider:KAYY CARDENAS PA-C Location:[facility] Appointment Type:URO Office Visit Diagnostic Tests Pending * [facility]ments Appointment Date:07/15/2023 08:30:00 AM Scheduled Provider: Location:[facility] Appointment Type:Urology FT Appointment Date:07/29/2023 02:40:00 PM Scheduled Provider:KAYY CARDENAS PA-C Location:[facility] Appointment Type:URO [facility] [employer] [employer] [facility] [employer] Other Evaluation noteNo assessment information available [facility] Work Phone: Hisl[facility] general N[facility]ative - [facility] [employer] Other History general Narrative - Reported* Type Description Date [...] History ENDOMETRIAL ABLATION Surgical History WISDOM TEETH [facility] Other History general Narrative - [employer] Other History general Narrative - [employer]orted[facility] [employer] Other History general Narrative - Reported* Type Description Date [...] History WISDOM TEETH Hospitalization History see above [place] [facility] Other Hospital Discharge instructions No data available for this section [facility] No data available for this section [facility] [place] Summary Purpose Family History No Family History [...] Med Refill For Pain Control m25.552 m47.817 Chief Complaint BH Med Refill For Pain Control m25.552 Increase Buttock Radiating To Leg Pain m47.817 pain Additional Source Comments INFORMATION SOURCE (unrecogn ized section and content) DATE CREATED AUTHOR 05/03/2021 [facility] DATE CREATED AUTHOR AUTHOR'S ORGANIZ ATION 08/30/2022 [facility] DATE CREATED AUTHOR AUTHOR'S ORGANIZ ATION 06/15/2023 [facility] DATE CREATED AUTHOR AUTHOR'S ORGANIZ ATION 07/15/2023 [facility] Care Team (unrecognized sect ion and content) Team Status: Active Member Role Status Dates MATTHIAS Altamirano Primary Care Provider Active Team Status: Active Member Role Status Dates MATTHIAS Altamirano Primary Care Provider Active Start: February 25, 2023 Alexey Maki MD Attending Provider Active Start: February 25, 2023 Team Status: Inactive Member Role Status Dates Destini Kilgore NP Attending Provider Active Start: April 09, 2023 End: April 09, 2023 Team Status: Inactive Member Role Status Dates Alyssa Arreola NP-C Primary Care Provider Active Start: April 09, 2023 End: April 09, 2023 Destini Kilgore NP Attending Provider Active Start: April 09, 2023 End: April 09, 2023 Team Status: Inactive Member Role Status Dates Alyssa Arreola NP-C Primary Care Provider Active Start: May 19, 2023 End: May 19, 2023 Asif Cox MD Attending Provider Active Sta rt: May 19, 2023 End: May 19, 2023 Team Status: Inactive Member Role Status Dates Alyssa Arreola NP-C Primary Care Provider Active Asif Cox MD Attending Provider Active Team Status: Inactive Member Role Status Dates Alyssa Arreola MARINE DRAFTER-C Primary Care Provider Active Destini Kilgore NP Attending Provider Active Team Status: Active Member Role Status Dates Alyssa Arreola MARINE DRAFTER-C Primary Care Provider Active Start: March 06, 2023 Alexey Maki MD Attending Provider Active Start: March 06, 2023 Team Status: Inactive Member Role Status Dates Asif Cox MD Attending Provider Active Sta rt: May 19, 2023 End: May 19, 2023 Team Status: Inactive Member Role Status Dates Alyssa Arreola NP-C Primary Care Provider Active Start: June 04, 2023 End: June 04, 2023 Asif Cox MD Attending Provider Active Sta rt: June 04, 2023 End: June 04, 2023 REASON FOR VISIT (unrecogniz ed section and content) BILATERAL SACROILIAC JOIN T INJECTIONF/U AFTER LUCINDA SILUCINDA LUMBAR FACET MEDIAL BRANCH NERVE BLOCK L2-3, L3-4, L4-5/ELFOLLOW UP AFTER LUCINDA LUMBAR MBBRIGHT L2- 3, L3-4, L4-5 LUMBAR FACET RFA2 WEEK F/U AFTER LUCINDA LUMBAR FACET RFAmedicationPATIENT HERE AT THE REQUEST OF ALYSSA MAXWELL FOR ABDOMINAL PAINSTEROID INJECTION L KNEE /MED [...] CONTROLNo Informationincrease buttock radiating to leg pain bilateral lumbar facet RFA L2,L3,L4,L5No Information Goals (unrecognized section and content) Goals [...] BE BASED ON THE PRIMARY CLINICAL RECORDS. [employer] provides no warranty or guarantee of the accuracy or completeness of information in this document.
--- NOTE | 2023-07-16 01:46 | ED_ITS ---
HPI - Nausea/Vomiting/Diarrhea General Chief complaint: Nausea/Vomiting/Diarrhea Stated complaint: VOMITING Time Seen by Provider: 07/16/23 01:34 Source: patient Mode of arrival: Wheelchair Limitations: no limitations History of Present Illness HPI Narrative: developed nausea, vomiting and diarrhea last night around 6pm - about 6 hours after a urological procedure at [facility] with Dr Cordoba. She recently fin ished a 10 days course of antibiotics for UTI that was due to E coli, according to the culture, which we have on file here at [facility]. She said that she had botox injected into her bladder on the morning of 07/15/23 because of uterine prolapse. She apparently was just placed on Keflex, which she was supposed to take pre- procedure, she told us, to prevent infection. She got it filled today and then took one - but no more since the N/V/D started. Related Data Home Medications ?Medication ?Instructions ?Recorded ?Confirmed albuterol sulfate 90 mcg/actuation 1 puff inhalation Q4H PRN 07/16/23 07/16/23 aerosol inhaler shortness of breath or wheezing benztropine 0.5 mg tablet 0.5 mg PO BID 07/16/23 07/16/23 brexpiprazole 4 mg tablet (Rexulti) 4 mg PO .qd 07/16/23 07/16/23 brexpiprazole 4 mg tablet (Rexulti) 4 mg PO QPM 07/16/23 07/16/23 buspirone 10 mg tablet 10 mg PO BID 07/16/23 07/16/23 cephalexin 500 mg capsule 500 mg PO BID 07/16/23 07/16/23 gabapentin 400 mg capsule 400 mg PO Q12H 07/16/23 07/16/23 lamotrigine 100 mg tablet 100 mg PO .qd 07/16/23 07/16/23 simvastatin 40 mg tablet 40 mg PO .qd 07/16/23 07/16/23 venlafaxine 150 mg 150 mg PO BID 07/16/23 07/16/23 capsule,extended release 24 hr Previous Rx's ?Medication ?Instructions ?Recorded ondansetron 4 mg disintegrating 4 mg PO Q6H PRN nausea and 07/16/23 tablet vomiting #14 tabs Allergies Allergy/AdvReac Type Severity Reaction Status Date / Time aspirin Allergy Uncoded 07/16/23 01:24 PFSH PFSH Social History Smoking status: Never smoker Exam Narrative Exam Narrative: Nurses notes and vital signs reviewed and patient is not hypoxic. Afebrile General: Well-appearing and in no apparent distress. Skin: Warm, dry, no pallor noted. No rash. Eye: Pupils are equal, round and EOMI. No scleral icterus. Ears, Nose, Mouth, and Throat: TM are clear, no posterior oropharynx erythema or nasal mucosal hypertrophy, uvula is mid-line Oral mucosa is moist Cardiovascular: Tachycardia. Respiratory: No accessory muscle use or respiratory distress. Lungs are clear to auscultation, no wheezing, rales or rhonchi Back: No midline thoracic or lumbar vertebral tenderness. No CVA tenderness GI: Abdomen is soft, non-distended. Normal bowel sounds. Left lower abdominal tenderness to palpation. No rebound, guarding, or rigidity noted. Neurological: A&O x4. No cranial nerve dysfunction observed. No truncal ataxia. Moves all extremities. Sensation intact. Psychiatric: Cooperative and interactive. Normal mood and affect. Constitutional Vital Signs, click to edit/add: Last Vital Signs Temp 97.9 F 07/16/23 01:20 Pulse 92 H 07/16/23 03:40 Resp 18 07/16/23 03:40 BP 124/84 07/16/23 03:40 Pulse Ox 97 07/16/23 03:43 O2 Del Method Room Air 07/16/23 03:43 Course Vital Signs Vital signs: Vital Signs Temperature 97.9 F 07/16/23 01:20 Pulse Rate 112 H 07/16/23 01:20 Respiratory Rate 22 07/16/23 01:20 Blood Pressure 151/99 H 07/16/23 01:20 Pulse Oximetry 96 07/16/23 01:20 Oxygen Delivery Method Room Air 07/16/23 01:20 Temperature 97.9 F 07/16/23 01:20 Pulse Rate 92 H 07/16/23 03:40 Respiratory Rate 18 07/16/23 03:40 Blood Pressure 124/84 07/16/23 03:40 Pulse Oximetry 97 07/16/23 03:43 Oxygen Delivery Method Room Air 07/16/23 03:43 MDM - Nausea/Vomiting/Diarrhea MDM Narrative Medical decision making narrative: Peripheral IV established blood drawn and sent for testing. She was ordered to receive normal saline IV fluid bolus, IV Toradol and IV Zofran WBC 12.8 w left shift. CMP revealed normal electrolytes, normal BUN, mildly elevated Cr, normal LFTs, normal Lipase. CT = gastroenteritis, per radiologist. Patient informed of results and diagnosis and treatment plan discussed. She felt better after ED treatment. Patient discharged home with prescription for zofran, recommendation for clear liquid diet. ED return if worse. Lab Data Attestation: I reviewed the patient's lab results. Labs: Lab Results 07/16/23 Range/Units 01:28 WBC 12.8 H (4.0-11.0) 10^3/uL RBC 5.75 H (4.20-5.40) 10^6/uL Hgb 17.0 H (12.0-16.0) g/dL Hct 51.8 H (36.0-48.0) % MCV 90.1 (81.0-99.0) fL MCH 29.6 (26.7-34.0) pg MCHC 32.8 (29.9-35.2) g/dL RDW 13.3 (11.0-15.0) % Plt Count 457 H (150-450) 10^3/uL MPV 10.0 (9.5-13.5) fL Neut % (Auto) 87.3 H (43.0-75.0) % Lymph % (Auto) 7.0 L (20.5-60.0) % Benzie % (Auto) 4.1 (1.7-12.0) % Eos % (Auto) 0.9 (0.9-7.0) % Baso % (Auto) 0.3 (0.2-2.0) % Neut # (Auto) 11.2 H (1.4-6.5) 10^3/uL Lymph # (Auto) 0.9 L (1.2-3.8) 10^3/uL Benzie # (Auto) 0.5 (0.3-0.8) 10^3/uL Eos # (Auto) 0.1 (0.0-0.7) 10^3/uL Baso # (Auto) 0.0 (0.0-0.1) 10^3/uL Abs Immat Gran (auto) 0.05 H (0.00-0.03) 10^3/uL Imm/Tot Granulo (auto) 0.4 (0.0-0.5) % Sodium 140 (136-145) mmol/L Potassium 3.7 (3.5-5.1) mmol/L Chloride 102 (98-107) mmol/L Carbon Dioxide 20.8 L (21.0-32.0) mmol/L Anion Gap 20.9 BUN 15.0 (7.0-18.0) mg/dL Creatinine 1.25 H (0.55-1.02) mg/dL Est GFR ( Amer) 54 L (>=60) Est GFR (Non-Af Amer) 45 L (>=60) BUN/Creatinine Ratio 12.0 Glucose 181 H (74-106) mg/dL Calcium 10.0 (8.5-10.1) mg/dL Total Bilirubin 0.8 (0.2-1.0) mg/dL AST 25 (15-37) U/L ALT 36 (14-59) U/L Alkaline Phosphatase 130 H (46-116) U/L Total Protein 9.4 H (6.4-8.2) g/dL Albumin 4.2 (3.4-5.0) g/dL Globulin 5.2 g/dL Albumin/Globulin Ratio 0.8 Lipase 30.0 (16.0-77.0) U/L Imaging Data CT scan - abdomen: Radiologist's impression: ITS Impressions Abdomen/Pelvis CT 07/16/23 01:54 IMPRESSION: Findings as described which in the right clinical setting can be associated with a gastroenteritis and diarrhea. The bowel gas pattern is nonobstructive. There is gas within the urinary bladder which is almost completely collapsed. Correlate with recent instrumentation of the urinary bladder to account for this. Electronically authenticated by: WILLIAM CARRANZA Date: 07/16/2023 04:28 Discharge Plan Discharge Stand Alone Forms: Portal Instructions Chief Complaint: Nausea/Vomiting/Diarrhea Clinical Impression: Gastroenteritis Patient Disposition: Home, Self-Care Time of Disposition Decision: 04:38 Prescriptions / Home Meds: New ondansetron 4 mg tablet,disintegrating 4 mg PO Q6H PRN (Reason: nausea and vomiting) Qty: 14 0RF No Action albuterol sulfate 90 mcg/actuation HFA aerosol inhaler 1 puff INHALATION Q4H PRN (Reason: shortness of breath or wheezing) Rexulti 4 mg tablet 4 mg PO QPM buspirone 10 mg tablet 10 mg PO BID cephalexin 500 mg capsule 500 mg PO BID benztropine 0.5 mg tablet 0.5 mg PO BID gabapentin 400 mg capsule 400 mg PO Q12H venlafaxine 150 mg capsule,extended release 24hr 150 mg PO BID simvastatin 40 mg tablet 40 mg PO .qd lamotrigine 100 mg tablet 100 mg PO .qd Rexulti 4 mg tablet 4 mg PO .qd Print Language: Citizen Of [place] Instructions: Clear Liquid Diet (ED), Gastroenteritis (ED) Referrals: KIRK ARREOLA [Primary Care Provider] - 1 week
--- NOTE | 2023-07-16 01:54 | CT_ITS ---
The [address] [address] Patient Name: DOUG CARO MRN: [id number] date: 1970 Sex: F Assigned Patient Location: ER Current Patient Location: ER Accession/Order Number: [id number] Exam Date: 07/16/2023 02:13 Report Date: 07/16/2023 04:28 At the request of: NUBIA WHYTE Procedure: CT abdomen pelvis w con EXAM: CT abdomen pelvis w con HISTORY: Left sided abd pain; N/V/D. COMPARISON: 07/08/2017. TECHNIQUE: Routine CT abdomen/pelvis with intravenous contrast. Dose reduction techniques were achieved by using automated exposure control and/or adjustment of MA and/or KV according to patient size and/or use of iterative reconstruction technique. FINDINGS: Lower chest: The lung bases are unremarkable. Solid organs: The liver is unremarkable. The patient is had a prior cholecystectomy. There is no significant biliary dilatation. The pancreas, spleen, bilateral adrenal glands and bilateral kidneys are unremarkable. Bowel: There is fluid stool throughout the colon. Colon is otherwise unremarkable without bowel wall thickening. The appendix is unremarkable. There is fluid within the distal esophagus consistent with gastroesophageal reflux. There is a moderate amount of fluid within the mildly dilated stomach. Fluid and a few air-fluid levels are seen within nondistended jejunal and ileal small bowel loops. Correlate with clinical findings of a gastroenteritis with associated diarrhea. The bowel gas pattern is nonobstructive. Vasculature: The abdominal aorta and IVC are unremarkable. Inflammation: There is no free air, free fluid or inflammatory reaction. Lymphadenopathy: There are no pathologically enlarged lymph nodes within the abdomen/pelvis. Pelvis: The uterus and adnexal regions are unremarkable. There is gas within the urinary bladder which is almost completely collapsed. Correlate with recent instrumentation of the urinary bladder to account for this. Osseous: There are syndesmophytes along the lower thoracic spine. CT/CT abdomen pelvis w con IMPRESSION: Findings as described which in the right clinical setting can be associated with a gastroenteritis and diarrhea. The bowel gas pattern is nonobstructive. There is gas within the urinary bladder which is almost completely collapsed. Correlate with recent instrumentation of the urinary bladder to account for this. Electronically authenticated by: WILLIAM CARRANZA Date: 07/16/2023 04:28
[2023-07-16] MEDS: 0.9 % SODIUM CHLORIDE 1,000 ML 999 ML IV (01:58)
[2023-07-16 01:59] LABS: Basophils Percent Auto 0.3 % (0.2-2.0); Eosinophils Absolute Auto 0.1 10^3/uL (0.0-0.7); Eosinophils Percent Auto 0.9 % (0.9-7.0); Hematocrit 51.8 % (36.0-48.0); Immature Granulocytes Abs Auto 0.05 10^3/uL (0.00-0.03); Immature Granulocytes Pct Auto 0.4 % (0.0-0.5); Lymphocytes Absolute Auto 0.9 10^3/uL (1.2-3.8); Mean Corpuscular HGB Conc 32.8 g/dL (29.9-35.2); Mean Corpuscular Hemoglobin 29.6 pg (26.7-34.0); Mean Corpuscular Volume 90.1 fL (81.0-99.0); Monocytes Absolute Auto 0.5 10^3/uL (0.3-0.8); Monocytes Percent Auto 4.1 % (1.7-12.0); Neutrophils Absolute Auto 11.2 10^3/uL (1.4-6.5); Neutrophils Percent Auto 87.3 % (43.0-75.0); Platelet Count 457 10^3/uL (150-450); Red Blood Count 5.75 10^6/uL (4.20-5.40); Red Cell Distribution Width 13.3 % (11.0-15.0); White Blood Count 12.8 10^3/uL (4.0-11.0)
[2023-07-16] MEDS: ONDANSETRON PF 4 MG/2 ML VIAL IV (01:59)
[2023-07-16 02:08] LABS: Alanine Aminotransferase 36 U/L (14-59); Albumin Globulin Ratio 0.8; Albumin Level 4.2 g/dL (3.4-5.0); Alkaline Phosphatase 130 U/L (46-116); Anion Gap 20.9; Aspartate Amino Transferase 25 U/L (15-37); Bilirubin Total 0.8 mg/dL (0.2-1.0); Carbon Dioxide 20.8 mmol/L (21.0-32.0); Chloride 102 mmol/L (98-107); Estimated GFR (African America 54 (>=60); Estimated GFR (Non-African Ame 45 (>=60); Globulin 5.2 g/dL; Glucose 181 mg/dL (74-106); Potassium 3.7 mmol/L (3.5-5.1); Sodium 140 mmol/L (136-145); Total Protein 9.4 g/dL (6.4-8.2)
[2023-07-16] MEDS: KETOROLAC TROMETHAMINE 30 MG/ML VIAL IVP (02:21)
[2023-07-16 03:40] VITALS: BP 124/84; PULSE 92; RESP 18; O2SAT 97
--- NOTE | 2023-07-16 03:42 | PC.NURSE ---
vomiting has resolved over the last 1.5 hrs, small amount of ice chips given
[2023-07-16 03:43] VITALS: O2SAT 97
== END 2023-07-16 04:49 | disposition home or self-care (01) ==
PROVIDERS: Emergency Provider Emergency Medicine; PCP Nurse Practitioner Family
DX: K52.9 Noninfective gastroenteritis and colitis, unspecified (principal); Z98.890 Other specified postprocedural states; Z87.440 Personal history of urinary (tract) infections
CPT/HCPCS: 36415; 74177; 80053; 83690; 85025; 96361; 96374; 96375; 99284; Q9967

== ENCOUNTER 2023-11-11 06:53 | Outpatient (RCR) | payer MEDICAID, SELFPAY | END 2023-11-27 11:51 | disposition home or self-care (01) | LOC: PT 06:53 | PROVIDERS: PCP Nurse Practitioner Family; Visit Provider Anesthesiology | DX: M54.50 Low back pain, unspecified (principal); M25.559 Pain in unspecified hip; R52 Pain, unspecified; R29.3 Abnormal posture | CPT/HCPCS: 97110; 97161 ==

== ENCOUNTER 2023-12-25 10:27 | Outpatient (OUT) | payer MEDICAID, SELFPAY ==
[2023-12-25 11:13] LABS: Basophils Percent Auto 0.6 % (0.2-2.0); Eosinophils Absolute Auto 0.2 10^3/uL (0.0-0.7); Eosinophils Percent Auto 2.8 % (0.9-7.0); Hematocrit 43.4 % (36.0-48.0); Hemoglobin 14.5 g/dL (12.0-16.0); Immature Granulocytes Abs Auto 0.01 10^3/uL (0.00-0.03); Immature Granulocytes Pct Auto 0.2 % (0.0-0.5); Lymphocytes Absolute Auto 1.4 10^3/uL (1.2-3.8); Lymphocytes Percent Auto 21.8 % (20.5-60.0); Mean Corpuscular HGB Conc 33.4 g/dL (29.9-35.2); Mean Corpuscular Hemoglobin 29.5 pg (26.7-34.0); Mean Corpuscular Volume 88.4 fL (81.0-99.0); Monocytes Absolute Auto 0.4 10^3/uL (0.3-0.8); Monocytes Percent Auto 6.5 % (1.7-12.0); Neutrophils Absolute Auto 4.3 10^3/uL (1.4-6.5); Neutrophils Percent Auto 68.1 % (43.0-75.0); Platelet Count 292 10^3/uL (150-450); Red Blood Count 4.91 10^6/uL (4.20-5.40); White Blood Count 6.3 10^3/uL (4.0-11.0)
[2023-12-25 11:19] LABS: Estimated Average Glucose 126 mg/dL
[2023-12-25 11:40] LABS: Alanine Aminotransferase 51 U/L (14-59); Albumin Globulin Ratio 0.8; Albumin Level 3.4 g/dL (3.4-5.0); Alkaline Phosphatase 137 U/L (46-116); Anion Gap 14.5; Aspartate Amino Transferase 31 U/L (15-37); BUN Creatinine Ratio 7.8; Bilirubin Total 0.4 mg/dL (0.2-1.0); Calcium 9.4 mg/dL (8.5-10.1); Carbon Dioxide 25.5 mmol/L (21.0-32.0); Chloride 104 mmol/L (98-107); Chol HDL Ratio 3.2; Cholesterol 133 mg/dL (<=200); Estimated GFR (African America >60 (>=60); Estimated GFR (Non-African Ame >60 (>=60); Free T3 3.12 pg/mL (2.18-3.98); Globulin 4.3 g/dL; Glucose 117 mg/dL (74-106); HDL Cholesterol 41 mg/dL (40-60); Sodium 140 mmol/L (136-145); Thyroid Stimulating Hormone 3.334 uIU/mL (0.358-3.740); Total Protein 7.7 g/dL (6.4-8.2); Triglycerides 155 mg/dL (<=150)
[2023-12-26 12:10] LABS: Insulin 49.5 uIU/mL (2.6-24.9)
== END 2023-12-25 10:28 | disposition home or self-care (01) ==
LOC: LAB 10:29
PROVIDERS: PCP Nurse Practitioner Family; Visit Provider Nurse Practitioner Family
DX: Z00.00 Encounter for general adult medical examination without abnormal findings (principal)
CPT/HCPCS: 36415; 80053; 80061; 82306; 83036; 83525; 84436; 84443; 84481; 85025

== ENCOUNTER 2024-05-26 08:32 | Outpatient (OUT) | payer MEDICAID, SELFPAY ==
--- NOTE | 2024-05-26 08:36 | MR_ITS ---
[address] [address] Patient Name: DOUG CARO MRN: [id number] date: 1970 Sex: F Assigned Patient Location: MRI Current Patient Location: MRI Accession/Order Number: [id number] Exam Date: 05/26/2024 08:42 Report Date: 05/26/2024 11:36 At the request of: KIMBER DOW Procedure: MR cervical spine wo con EXAM: MR cervical spine wo con CLINICAL INDICATION: Paresthesia, Upper Extremity Numbness COMPARISON: None TECHNIQUE/PROTOCOL: Standard noncontrast cervical spine protocol MR performed (Sagittal STIR, T1, T2, axial gradient, T2-weighted images). FINDINGS: Spinal Cord: Normal in caliber and signal. Epidural Hematoma: None. Alignment: Normal cervical spine alignment and craniocervical junction. Marrow Signal: Normal. Vertebral Body Heights: Maintained. Paraspinal Soft Tissues: Normal. Neck Soft Tissues: Normal. Spondylotic Changes: Mild multilevel spondylotic changes include varying degrees of disc desiccation, osteophytic ridging, and facet/uncovertebral joint hypertrophy. C2-C3: No disc bulge or herniation. No high-grade spinal canal or foraminal narrowing. C3-C4: No disc bulge or herniation. No high-grade spinal canal or foraminal narrowing. Minimal bilateral facet hypertrophy. C4-C5: No disc bulge or herniation. No high-grade spinal canal or foraminal narrowing. Minimal bilateral facet hypertrophy. C5-C6: Slight disc osteophyte complex indents the ventral thecal sac. Mild spinal canal narrowing. Mild bilateral foraminal narrowing is contributed to by uncovertebral and facet hypertrophy. C6-C7: No disc bulge or herniation. No high-grade spinal canal or foraminal narrowing. C7-T1: No disc bulge or herniation. No high-grade spinal canal or foraminal narrowing. MR/MR cervical spine wo con IMPRESSION: Mild multilevel spondylotic changes without high-grade spinal canal or foraminal narrowing at any cervical level. Electronically authenticated by: LISBETH HO Date: 05/26/2024 11:36
--- OUTSIDE RECORDS SUMMARY | 2024-05-26 08:46 | XMS_ITS | CCD ---
Author Organization [facility] Care Team Providers Care Office Machine Installer Name Role Phone ELTAHAWY, EHAB A Admitting Unavailable ELTAHAWY, EHAB A Attending Unavailable MAXWELL, ALYSSA Primary Care Unavailable MAXWELL, ALYSSA Referring Unavailable ALYSSA ARREOLA S Primary Care Physician [phone] Asif Mejia Unavailable Destini Kilgore Unavailable Mellissa Strange Unavailable MATTHIAS Arreola Alyssa Lesly Primary Care Provider MD Asif Mejia Attending Provider [phone] MATTHIAS Arreola Alyssa Lesly Primary Care Provider MD Asif Mejia Attending Provider MATTHIAS Arreola Alyssa Lesly Primary Care Provider MD Asif Mejia Attending Provider [phone] MAXWELL, ALYSSA Primary Care Unavailable MAXWELL, ALYSSA [...] DIAB ., FRANNIE Admitting Unavailable MELLISSA PRIEST Unavailable MAXWELL, ALYSSA Primary Care Unavailable DIAB [...] ALYSSA Primary Care Unavailable SOLITARIO ., DR KDID Admitting Unavailable SOLITARIO ., DR KIDD Attending Unavailable SOLITARIO ., DR KIDD Consulting Unavailable MAXWELL, ALYSSA Primary Care Unavailable SOLITARIO ., DR KIDD Admitting Unavailable MAXWELL, ALYSSA Primary Care Unavailable SOLITARIO ., DR KIDD Attending Unavailable ADONAY Arreola-Jess Alyssa Lesly Primary Care Provider ADONAY Kilgore Attending Provider [phone] MATTHIAS Arreola Alyssa Lesly Primary Care Provider [phone] MD Alexey Maki Attending Provider [phone] MD Asif Mejia Attending Provider [phone] Dioni Flores Primary Care Physician MATTHIAS Arreola Alyssa Lesly Primary Care Provider [phone] MD Alexey Maki Attending Provider [phone] MATTHIAS Arreola Alyssa Lesly Primary Care Provider MD Asif Mejia Attending Provider MATTHIAS Arreola Alyssa Lesly Primary Care Provider MD Alexey Maki Attending Provider [phone] MATTHIAS Arreola Primary Care Provider [phone] MD Alexey Maki Attending Provider ADONAY Kilgore Attending Provider MATTHIAS Arreola Primary Care Provider MD Alexey Maki Attending Provider MD Alexey Maki Attending Provider Maxwell JARAMILLO, Alyssa Unavailable JOSE ELIAS MIRAMONTES Attending Unavailab le KULWINDER, JOSE ELIAS Buenrostro Admitting Unavailab le KULWINDER, JOSE ELIAS Buenrostro Admitting Unavailab le KULWINDER, JOSE ELIAS Buenrostro Attending Unavailab le KULWINDER, JOSE ELIAS Buenrostro Attending Unavailab le KULWINDER, JOSE ELIAS Buenrostro Attending Unavailab le GASTONHermilo Attending Unavailable KULWINDER, JOSE ELIAS Buenrostro Attending Unavailab le KULWINDER, JOSE ELIAS Buenrostro Attending Unavailab le GASTONHermilo Admitting Unavailable GASTON, Hermilo Yu Attending Unavailable Hermilo GASTON Referring Unavailable MD Alexey Maki Attending Provider MD Asif Mejia Attending Provider Joel Jerez DO Unavailable Unallocated , [place] Provider Primary Care Provi kallie Asif Mejia Admitting Unavailable Asif Mejia Attending Unavailable Alyssa Arreola Primary Care Unavailable Destini Kilgore Attending Unavailable Destini Kilgore Admitting Unavailable Alyssa Arreola Primary Care Unavailable Alexey Maki Admitting Unavailab Alyssa hCavez Primary Care Unavailable Alexey Maki Attending Unavailab Asif Ortega Admitting Unavailable Asif Mejia Attending Unavailable Alyssa Arreola Primary Care Unavailable Asif Mejia Admitting Unavailable Asif Mejia Attending Unavailable Alyssa Arreola Primary Care Unavailable CHEYANNE SCHILLING Attending Unavailable CHEYANNE SCHILLING Attending Unavailable JOEL JEREZ Attending Unavailable CHEYANNE SCHILLING Attending Unavailable TANK LANCASTER Attending Unavailable CHEYANNE SCHILLING Attending Unavailable Allergies Allergy Classification Reported Allergen(s) Allergy Type Date of Onset Reaction(s) Facility (20 sources) Aspirin; Translations: [aspirin] Drug Allergy 2 Tremor (finding) [facility] Other (14 sources) Desonide; Translations: [desonide topical] Drug Allergy 3 Unknown [facility] Sue (11 sources) Tape 1 Drug allergy Eruption of skin (disorder) [facility] [place] Comment on above: adhesive (15 sources) Adhesive Tape; Translations: [adhesive tape] Allergy to substance 2 [facility] (2 sources) Aspirin Drug Allergy 3 [facility] Rep[facility] (15 sources) Aluminum aspirin Drug Allergy 4 [facility] (15 sources) Wound Dressing Adhesive Propensity to adverse reactions 4 [facility] (1 source) Adhesive Tape; Translations: [Tape] Propensity to adverse reactions (disorder) [facility] Repository (1 source) Aspirin Drug Allergy 4 [facility] Medications Current Medications Medication Drug Class(es) Dates Sig (Normalized) Sig (Original) acetaminophen 250 mg / aspirin 250 mg / caffeine 65 mg oral tablet (15 sources) Platelet Aggregation Inhibitor, Nonsteroidal Anti-inflammatory Drug, Central Nervous System Stimulant, Methylxanthine take 2 tablets by mouth every eight hours as needed aspirin-acetaminop hen-caffeine (Excedrin Migraine) 250-250-65 MG tablet Take 2 tablets by mouth every 8 (eight) hours if needed Active acetaZOLAMIDE 250 mg oral tablet (15 sources) Carbonic Anhydrase Inhibitor take 1 tablet by mouth once daily acetaZOLAMIDE (Diamox) 250 MG tablet Take 250 mg by mouth Daily Active Aimovig SureClick 70 mg/mL subcutaneous solution (2 sources) Start: 08-09-2021 Aimovig SureClick 70 mg/mL subcutaneous solution 70 mg Start Date: 08/09/21 Status: Ordered Albuterol (20 sources) beta2-Adrenergic Agonist Start: 05-28-2023 Albuterol (Eqv-ProAir HFA) Inhalation, q6hr Start Date: 05/28/23 Status: Ordered take 1 puff(s) by in halation every four hours albuterol HFA 90 mcg/act inhaler 1 puff every 4 (four) hours if needed Active atorvastatin (20 sources) HMG-CoA Reductase Inhibitor Start: 04-23-2019 atorvastatin Oral, D aily, Refills(s) 0 Start Date: 04/23/19 Status: Ordered End: 03-10-2024 take 1 tablet by mouth once daily atorvastatin (Lipitor) 40 MG tablet Take 40 mg by mouth Daily 03/10/2024 Discontinued (Med list cleanup) benztropine mesylate 0.5 mg oral tablet (20 sources) Anticholinergic, Antihistamine Start: 05-28-2023 take 2 tablets by mouth once daily at bedtime benztropine 0.5 mg oral tablet mg tab(s), Oral, Once a day (at bedtime) Start Date: 05/28/23 Status: Ordered Start: 03-06-2021 End: 03-10-2024 take 1 tablet by mouth in the morning benztropine (Cogentin) 0.5 MG tablet Take 0.5 mg by mouth in the morning and 0.5 mg before bedtime. 05/28/2023 03/10/2024 Discontinued (Med list cleanup) Start: 04-23-2019 benztropine Re fills(s) 0 Start Date: 04/23/19 Status: Ordered take 1 tablet by elyssa th every twenty-four hours Benztropine Mesylate 0.5 MG 1 tablet at bedtime Orally Once a day Active brexpiprazole 4 mg oral tablet (20 sources) Atypical Antipsychotic Start: 03-06-2021 take 1 tablet by mouth once daily Rexulti 4 MG tablet Take 4 mg by mouth Daily 05/28/2023 Active busPIRone hydrochloride 10 mg oral tablet (20 sources) Start: 05-28-2023 take 1 mg by mouth twice daily busPIRone 10 mg Tab mg tab(s), Oral, BID Start Date: 05/28/23 Status: Ordered cephalexin 500 mg oral capsule (3 sources) Cephalosporin Antibacterial Start: 07-15-2023 take 1 capsule by mouth twice daily Keflex 500 mg Cap 500 mg = 1 cap(s), Oral, BID, Start the day prior to procedure, # 14 cap(s), Refills(s) 0, Pharmacy: [facility]/pharmacy #[id number], 173, cm, 07/15/23 7:46:00 EDT, Height/Length Dosing, 142, kg, 05/28/23 16:07:00 EST, Weight Dosing Start Date: 07/15/23 Status: Ordered Start: 10-09-2021 End: 10-16-2021 take 1 capsule by mouth every twelve hours Keflex 500 mg Cap 500 mg = 1 cap(s), Oral, q12hr, X 7 day(s), # 14 cap(s), Refills(s) 0, Pharmacy: [facility]/pharmacy #[id number], 173, cm, 08/09/21 11:09:00 EDT, Height/Length Dosing, 142, kg, 08/09/21 11:09:00 EDT, Weight Dosing Start Date: 10/09/21 Stop Date: 10/16/21 Status: Ordered cetirizine hydrochloride 10 mg oral tablet (15 sources) Histamine-1 Receptor Antagonist take 1 tablet by mouth once daily cetirizine (ZyrTEC ALLERGY) 10 MG tablet Take 10 mg by mouth Daily Active cyclobenzaprine hydrochloride 5 mg oral tablet (20 sources) Muscle Relaxant Start: 022 take 5 mg by mouth once daily at bedtime Cyclobenzaprine Active 5 MG PO Daily at bedtime August 29, 2021 12:00am Daily Mohan (20 sources) take 1 tablet by mouth twice daily Daily Mohan 1 tablet Orally Twice a day Active Daily Mohan - (13 sources) take 1 tablet by mouth once daily Daily Mohan - 1 tablet Orally Once a day Active diclofenac sodium 0.01 mg/mg topical gel (20 sources) Nonsteroidal Anti-inflammatory Drug Start: 4 End: 4 Diclofenac Sodium (Voltaren Arthritis Pain) 1 % gel Active 2 GM TOPICAL Four times daily December 11, 2023 10:59am apply to single elbow, wrist or hand; for hand includes palm/fingers/back of hand Start: 03-06-2021 End: 09-04-2023 take 75 mg by mouth twice daily Diclofenac Sodium Discontinued 75 MG PO Twice daily March 06, 2021 1:00am September 04, 2023 9:51am Start: 04-23-2019 diclofenac Ora l, Refills(s) 0 Start Date: 04/23/19 Status: Ordered diclofenac sodiu m 1 % gel Apply 2 g topically in the morning and 2 g at noon and 2 g in the evening and 2 g before bedtime. Active dicyclomine hydrochloride 20 mg oral tablet (15 sources) Anticholinergic take 1 tablet by mouth four times daily as needed dicyclomine (Bentyl) 20 MG tablet Take 20 mg by mouth 4 (four) times a day as needed Active duloxetine (4 sources) Serotonin and Norepinephrine Reuptake Inhibitor Start: 04-23-20 duloxetine Oral, Refills(s) 0 Start Date: 04/23/19 Status: Ordered Elastic Bandages & Supports (Wrist Splint/Cock-Up/Left L) misc (15 sources) Start: 09-25-19 Elastic Bandages & Supports (Wrist Splint/Cock-Up/Left L) misc Indications: Carpal tunnel syndrome of left wrist Wear left cock-up wrist splint at bedtime 1 each 09/25/2023 Active 1 ml erenumab-aooe 70 mg/ml auto-injector (9 sources) Start: 08-10-19 Aimovig SureClick 70 mg/mL subcutaneous solution 70 mg Start Date: 08/09/21 Status: Ordered fluticasone 0.05 mg/inh Nasal [place] (9 sources) Start: 05-03-19 20 fluticasone 0.05 mg/inh Nasal [place] Nasal, Daily, Refill(s) 0 Start Date: 05/03/19 Status: Ordered 1 ml galcanezumab-gnlm 120 mg/ml auto-injector (15 sources) Start: 09-25-19 End: 09-25-19 galcanezumab (Emgality) 120 MG/ML auto-injector Indications: Migraine without aura and without status migrainosus, not intractable (CMS/HCC) , Chronic migraine without aura without status migrainosus, not intractable (CMS/HCC) Inject 1 Syringe (120 mg) under the skin every 30 (thirty) days 1.12 mL 11 09/25/2023 09/24/2024 Active lamoTRIgine 100 mg oral tablet (20 sources) Mood Stabilizer, Anti-epileptic Agent Start: 05-28-19 take 1 mg by mouth twice daily lamotrigine 100 mg Tab mg tab(s), Oral, BID Start Date: 05/28/23 Status: Ordered Start: 05-28-2023 take 1 mg by mouth twice daily lamotrigine 200 mg Tab mg tab(s), Oral, BID Start Date: 05/28/23 Status: Ordered Start: 03-06-2021 take 100 mg by mouth once [place] Lamotrigine Active 100 MG PO Daily March 06, 2021 1:00am Start: 03-06-2021 take 200 mg by mouth once [place] Lamotrigine Active 200 MG PO Daily March 06, 2021 1:00am take 1 tablet by elyssa th every [...] Active meclizine hydrochloride 25 mg oral tablet (20 sources) Antiemetic Start: 05-09-2023 take 1 tablet by mouth three times daily as needed for dizziness meclizine (Antivert) 25 MG tablet Take 25 mg by mouth 3 (three) times a day as needed for dizziness 05/09/2023 Active Start: 04-23-2019 meclizine TID, Refills(s) 0 Start Date: 04/23/19 Status: Ordered meloxicam (4 sources) Nonsteroidal Anti-inflammatory Drug Start: 04-23-2019 meloxicam Oral, Daily, Refills(s) 0 Start Date: 04/23/19 Status: Ordered metFORMIN hydrochloride 500 mg oral tablet (19 sources) Biguanide Start: 01-02-2024 take 500 mg by mouth once daily Metformin Active 500 MG PO Daily January 02, 2024 12:00am Multivitamin (Daily Multi-Vitamin) tablet (7 sources) Start: 06-19-2023 take 1 tablet by mouth once daily Multivitamin (Daily Multi-Vitamin) tablet Active 1 TAB PO Daily June 19, 2023 1:00am naratriptan 2.5 mg oral tablet (20 sources) Serotonin-1b and Serotonin-1d Receptor Agonist Start: 06-19-2023 Naratriptan Active 2.5 MG PO Every 4 hours June 19, 2023 1:00am do not exceed 2 doses per 24 hrs Start: 02-05-2023 End: 02-11-2024 take 1 tablet by mouth once naratriptan (Amerge) 2.5 M G tablet Take 2.5 mg by mouth 1 (one) time if needed for migraine 02/05/2023 02/11/2024 Discontinued (Therapy completed) 24 hr oxybutynin chloride 5 mg extended release oral tablet (15 sources) Cholinergic Muscarinic Antagonist take 1 tablet by mouth once daily oxybutynin XL (Ditropan-XL) 5 MG 24 hr tablet Take 5 mg by mouth Daily Active oxyCODONE hydrochloride 5 mg oral capsule (4 sources) Opioid Agonist Start: 02-28-20 take 1 mg by mouth every six hours oxyCODONE 5 mg Cap mg cap(s), Oral, q6hr, Refills(s) 0 Start Date: 02/28/20 Status: Ordered pantoprazole 40 mg delayed release oral tablet (20 sources) Proton Pump Inhibitor Start: 03-06-20 End: 03-10-20 24 take 40 mg by mouth twice daily Pantoprazole Active 40 MG PO Twice daily March 06, 2021 1:00am Start: 04-23-2019 pantoprazole D aily, Refills(s) 0 Start Date: 04/23/19 Status: Ordered PARoxetine hydrochloride 20 mg oral tablet (20 sources) Serotonin Reuptake Inhibitor Start: 06-19-2023 take 1 tablet by mouth once daily in the morning Paroxetine Hcl Active 20 MG PO Daily June 19, 2023 1:00am FreeTextSi tablet in the morning Orally Once a day; Note: Source Status: Not-Taking\PRN; Provider: Jackie Gold ( ) Start: 03-06-2021 End: 08-29-2021 Paroxetine Hcl Discontinued 20 MG PO As Directed March 06, 2021 1:00am August 29, 2021 10:35am Start: 04-23-2019 paroxetine Ora l, Refills(s) 0 Start Date: 04/23/19 Status: Ordered End: 03-10-2024 take 1 tablet by mouth in the morning PARoxetine (Paxil) 30 MG tablet Take 30 mg by mouth in the morning. 03/10/2024 Discontinued (Med list cleanup) take 2 tablets by mo [facility] every twenty-four hours Paxil 30 MG 2 tablets Orally Once a day Not-Taking promethazine hydrochloride 25 mg oral tablet (15 sources) Phenothiazine take 1 tablet by mouth every twelve hours promethazine (Phenergan) 25 MG tablet Take 25 mg by mouth every 12 (twelve) hours Active rimegepant 75 mg disintegrating oral tablet (18 sources) Start: End: Rimegepant Sulfate (Nurtec) 75 MG tablet dispersible Indications: Migraine without aura and without status migrainosus, not intractable (CMS/HCC) Take 1 tablet by mouth as needed at the onset of migraine. Place on tongue and allow to dissolve. Take no more than 1 dose in 48 hours. 8 tablet 11 02/11/2024 Active simvastatin 40 mg oral tablet (20 sources) HMG-CoA Reductase Inhibitor Start: take 1 tablet by mouth once daily in the evening Simvastatin Active 1 TAB PO Daily June 19, 2023 1:00am FreeTextSi tablet in the evening Orally Once a day; Note: Source Status: Taking; Provider: Jackie Gold ( ) spironolactone 50 mg oral tablet (20 sources) Aldosterone Antagonist Start: take 1 mg by mouth twice daily spironolactone 50 mg Tab mg tab(s), Oral, BID Start Date: 05/28/23 Status: Ordered Start: 03-06-2021 take 1 tablet by [facility] once daily spironolactone (Aldactone) 50 MG tablet Take 50 mg by mouth Daily 05/28/2023 Active sulfamethoxazole 800 mg / trimethoprim 160 mg oral tablet (4 sources) Dihydrofolate Reductase Inhibitor Antibacterial, Sulfonamide Antimicrobial Start: 02-12-2024 End: 02-19-2024 Bactrim D.S. 800 mg-160 mg Tab 1 tab(s), Oral, BID for 7 day(s), 14 tab(s), Refill(s) 0, [id number], 173, cm, 02/12/24 9:11:00 EDT, Height/Length Dosing, 146.2, kg, 02/12/24 9:11:00 EDT, Weight Dosing Start Date: 02/12/24 Stop Date: 02/19/24 Status: Ordered Start: 08-09-2021 End: 08-16-2021 Bactrim DS 800 mg-160 mg Tab 1 tab(s), Oral, BID for 7 day(s), 14 tab(s), Refill(s) 0, [id number], 173, cm, 08/09/21 11:09:00 EDT, Height/Length Dosing, 142, kg, 08/09/21 11:09:00 EDT, Weight Dosing Start Date: 08/09/21 Stop Date: 08/16/21 Status: Ordered SZSTANDARD1-Topical Cream Baclofen 2%, Cyclobenzaprine HCL 2%, Diclofenac Na 3%, Gabapentin 6%, Lidocaine HCL 2% Cream (18 sources) Start: 10-15-2021 SZSTANDARD1-To pical Cream Baclofen 2%, Cyclobenzaprine HCL 2%, Diclofenac [...] G89.29 Chronic pain Sep, Active 24 hr venlafaxine 75 mg extended release oral capsule (20 sources) Serotonin and Norepinephrine Reuptake Inhibitor Start: 06-19-2023 take 150 mg by mouth once daily Venlafaxine Active 150 MG PO Daily June 19, 2023 10:13am Start: 05-28-2023 take 1 mg by mouth once daily venlafaxine 150 mg Cap-ER mg cap(s), Oral, Daily Start Date: 05/28/23 Status: Ordered Start: 03-06-2021 End: 06-19-2023 take 225 mg by mouth once daily Venlafaxine Discontinu ed 225 MG PO Daily March 06, 2021 1:00am June 19, 2023 10:14am End: 03-10-2024 take 1 capsule by mouth once daily venlafaxine XR (Effexor XR) 150 MG 24 hr capsule Take 300 mg by mouth Daily 03/10/2024 Discontinued (Med list cleanup) take 2 capsules by m outh every [...] with food Orally Once a day Active vitamin b12 1 mg oral tablet (15 sources) Vitamin B12 take 1 tablet by mouth once daily cyanocobalamin (Vitamin B-12) 1000 MCG tablet Take 1,000 mcg by mouth Daily Active zonisamide 100 mg oral capsule (17 sources) Anti-epileptic Agent take 1 capsule by mouth every twenty-four hours Completed/Discontinued Medications Medication Drug [...] mg / caffeine 40 mg oral tablet (14 sources) Barbiturate, Central Nervous System Stimulant, Methylxanthine Start: 03-06-2021 End: 08-29-2021 Wbsyoaxjjj-Hqfoqkishnmxz-Aht f Discontinued 1 TAB PO As Directed March 06, 2021 1:00am August 29, 2021 10:35am amitriptyline hydrochloride 150 mg oral tablet (20 sources) Tricyclic Antidepressant End: 03-10-2024 take 1 tablet by mouth once daily amitriptyline (Elavil) 150 MG tablet Take 150 mg by mouth 1 (one) time each day at the same time 03/10/2024 Discontinued (Med list cleanup) azithromycin 250 mg oral tablet (14 sources) Macrolide Antimicrobial Start: 03-06-2021 End: 08-15-2021 Azithromycin Discontinued MG TABLET March 06, 2021 1:00am August 15, 2021 9:58am carisoprodol 350 mg oral tablet (12 sources) Muscle Relaxant End: 03-10-2024 take 1 tablet by mouth four times daily as needed carisoprodol (Soma) 350 MG tablet Take 350 mg by mouth 4 (four) times a day as needed 03/10/2024 Discontinued (Med list cleanup) docusate sodium 50 mg / sennosides, prison 8.6 mg oral tablet (20 sources) Start: 07-09-2021 take 8.6-50 mg by mouth once daily at bedtime Senokot S 8.6-50 MG 2 tab(s) Orally qhs for 30 day(s) Jun, Not-Taking/PRN Emgality (18 sources) Emgality Not-Maicol ing/PRN Emgality Not-Maicol ing Emgality Active famotidine 40 mg oral tablet (20 sources) Histamine-2 Receptor Antagonist Start: 03-06-2021 End: 06-19-2023 take 40 mg by mouth twice daily Famotidine Discontinued 40 MG PO Twice daily March 06, 2021 1:00am June 19, 2023 10:04am End: 03-10-2024 take 1 tablet by mouth once daily famotidine (Pepcid) 40 MG tablet Take 40 mg by mouth Daily 03/10/2024 Discontinued (Med list cleanup) fluticasone propionate 0.05 mg/actuat metered dose nasal spray (20 sources) Corticosteroid Start: 03-06-2021 End: 06-19-2023 Fluticasone Propionate Discontinued 50 MCG INTRANASAL Daily March 06, 2021 1:00am June 19, 2023 10:11am Start: 05-03-2019 fluticasone 0. 05 mg/inh Nasal [place] Nasal, Daily, Refill(s) 0 Start Date: 05/03/19 Status: Ordered take 1 spray(s) nasa l route once daily fluticasone (Flonase) 50 MCG/ACT nasal spray Administer 1 spray into each nostril Daily Active furosemide 40 mg oral tablet (20 sources) Loop Diuretic Start: 03-06-2021 End: 06-04-2023 take 40 mg by mouth twice daily Furosemide Discontinued 40 MG PO Twice daily March 06, 2021 1:00am June 04, 2023 10:57am End: 03-10-2024 take 1 tablet by mouth once daily furosemide (Lasix) 40 MG tablet Take 40 mg by mouth Daily 03/10/2024 Discontinued (Med list cleanup) gabapentin 400 mg oral capsule (20 sources) Anti-epileptic Agent Start: 06-19-2023 End: 07-16-2023 take 400 mg by mouth three times daily Gabapentin Discontinued 400 MG PO Three times daily June 19, 2023 9:47am July 16, 2023 11:04am Start: 05-28-2023 End: 01-15-2024 take 400 mg by mouth three times daily Gabapentin Discontinued 400 MG PO Three times daily December 11, 2023 10:57am January 15, 2024 3:59pm Start: 08-29-2021 End: 06-19-2023 take 300 mg by mouth three times daily Gabapentin Discontinued 300 MG PO Three times daily August 29, 2021 12:00am June 19, 2023 10:07am Start: 08-02-2021 Gabapentin 300 MG 1 capsule [...] m g Orally Twice a day Active methocarbamol 750 mg oral tablet (20 sources) Muscle Relaxant End: 03-10-2024 methocarbamol (Robaxin) 750 MG tablet every 4 (four) hours 03/10/2024 Discontinued (Med list cleanup) methylPREDNISolone 4 mg oral tablet (12 sources) Corticosteroid Start: 06-19-2023 End: 01-02-2024 take 1 tablet by mouth once daily, then take 0.5 tablet by mouth at breakfast, then take 0.5 tablet by mouth at dinner Methylprednisolone (Medrol (Sebastian)) 4 mg tablets,dose pack Discontinued 4 MG PO June 19, 2023 1:00am January 02, 2024 10:34am FreeTextSig: as directed Orally for daily dose take half with breakfast half with dinner; Note: Source Status: Taking; Refills: 0; Provider: Jame Machado Start: 04-09-2023 Medrol (Sebastian) 4 MG as directed Orally for daily dose take half with breakfast half with dinner for 6 days Mar, Active Multiple Vitamin (Multi Vitamin) tablet (12 sources) End: 03-10-2024 Multiple Vitamin (Multi Sybil min) tablet 1 (one) time each day at the same time 03/10/2024 Discontinued (Med list cleanup) Multiple Vitamin (Multi Vitamin) tablet 1 (one) time each day at the same time Active nitrofurantoin, macrocrystals 25 mg / nitrofurantoin, monohydrate 75 mg oral capsule (9 sources) Nitrofuran Antibacterial take 1 capsule by mouth every twenty-four hours Macrobid 100 MG 1 capsule with food Orally Once a day Not-Taking omeprazole 40 mg delayed release oral capsule (20 sources) Proton Pump Inhibitor Start: 2023 End: 2023 take 1 capsule by mouth in the morning omeprazole (PriLOSEC) [address] capsule Take 40 mg by mouth in the morning and 40 mg in the evening. Take before meals. 05/28/2023 03/10/2024 Discontinued (Med list cleanup) ondansetron 4 mg disintegrating oral tablet (12 sources) Serotonin-3 Receptor Antagonist End: 2023 take 1 tablet by mouth every eight hours as needed ondansetron ODT (Zofran-ODT) 4 MG disintegrating tablet Take 4 mg by mouth every 8 (eight) hours if needed 03/10/2024 Discontinued (Med list cleanup) microencapsulated potassium chloride 20 meq extended release oral tablet (20 sources) Start: 2020 End: 2021 Potassium Chloride (Klor-Con M20) 20 mEq tablet,ER particles/crystals Discontinued 20 MEQ PO As Directed March 06, 2021 1:00am August 29, 2021 10:35am risperiDONE 2 mg oral tablet (12 sources) Atypical Antipsychotic End: 2023 take 1 tablet by mouth once daily risperiDONE (RisperDAL) 2 MG tablet Take 2 mg by mouth Daily 03/10/2024 Discontinued (Med list cleanup) rizatriptan 10 mg disintegrating oral tablet (20 sources) Serotonin-1b and Serotonin-1d Receptor Agonist Start: 2021 End: 2023 Rizatriptan Discontinued 10 MG PO As Directed August 29, 2021 12:00am June 19, 2023 10:11am take 1 tablet by elyssa th every twenty-four hours Maxalt 10 MG 1 tablet Orally Once a day Not-Taking/PRN solifenacin succinate 5 mg oral tablet (9 sources) Cholinergic Muscarinic Antagonist take 1 tablet by mouth every twenty-four hours VESIcare 5 MG 1 tablet Orally Once a day Not-Taking sucralfate 1000 mg oral tablet (14 sources) Aluminum Complex Start: 03-06-20 End: 06-19-19 take 1 g by mouth four times daily Sucralfate Discontinued 1 GM PO Four times daily March 06, 2021 1:00am June 19, 2023 10:14am SUMAtriptan 100 mg oral tablet (20 sources) Serotonin-1b and Serotonin-1d Receptor Agonist take 1 tablet by mouth every two hours as needed, then take 1 tablet by mouth twice daily as needed Imitrex 100 MG 1 tablet at least 2 hours between doses as needed Orally Twice a day Not-Taking/PRN 24 hr tolterodine tartrate 4 mg extended release oral capsule (20 sources) Cholinergic Muscarinic Antagonist Start: 03-06-20 End: 03-10-20 Tolterodine Discontinued 2 MG PO As Directed March 06, 2021 1:00am August 29, 2021 10:31am Start: 03-06-2021 End: 05-22-2024 take 4 mg by mouth once daily Tolterodine Discontinued 4 MG PO Daily March 06, 2021 1:00am June 19, 2023 10:14am topiramate 100 mg oral table t (20 sources) Start: 03-06-2021 End: 03-10-2024 Topiramate Discontinued 100 MG PO As Directed March 06, 2021 1:00am August 29, 2021 10:35am Start: 04-23-2019 topiramate Ora l, Refills(s) 0 Start Date: 04/23/19 Status: Ordered triamcinolone acetonide 40 mg/ml injectable suspension (20 sources) Corticosteroid Start: 10-03-2022 Kenalog-40 Dec, 60 mg Start: 02-07-2022 Kenalog-40 Jan, 40 mg Start: 11-20-2020 Kenalog -40 mg Oct, 40 mg Problems Active Problems Problem Classification Problem Date Documented Da te Episodic/Chronic Abdominal pain (14 sources) Lower abdominal pain; Translations: [Lower abdominal pain, unspecified] 07-18-2021 Episodic Anxiety disorders (1 source) Anxiety disorder, unspecified; Translations: [ANXIETY DISORDER UNSPECIFIED] Onset: 2 Chronic Disorders of lipid metabolism (20 sources) Hyperlipidemia; Translations: [Dyslipidemia] Onset: 2 04-23-2019 Chronic Epilepsy; convulsions (17 sources) Seizure; Translations: [Unspecified convulsions] 04-23-2019 Episodic Esophageal disorders (20 sources) Gastroesophageal [...] [Migraine, unspecified, not intractable, without status migrainosus] Onset: 4 04-23-2019 Chronic Immunizations and screening for infectious [...] 04-23-2019 Chronic Other aftercare (1 source) Other continuous churn buttermaker (current) drug therapy; Translations: [OTH [facility] CURRENT DRUG THERAPY] Onset: 3 Episodic Other aftercare (6 sources) Polypharmacy ; Translations: [Other continuous churn buttermaker (current) drug therapy] 02-11-2024 Episodic Other connective tissue disease (5 sources) Myalgia, other site Episodic Other connective tissue disease (14 sources) Fibromyalgia; Translations: [Myalgia and myositis, unspecified] Onset: 3 Episodic Other diseases of bladder and urethra (3 sources) Detrusor overactivity; Translations: [Overactive bladder] Onset: 4 Chronic Other diseases of bladder and urethra (7 sources) Overactive bladder 05-28-2023 Chronic Other female [...] Constipation; Translations: [Constipation, unspecified] 07-18-2021 Episodic Other lower respiratory disease (2 sources) Hypoxia; Translations: [Hypoxemia] 03-10-2024 Episodic Other lower respiratory disease (2 sources) Snoring; Translations: [Snoring] 03-10-2024 Episodic Other nervous system disorders (11 sources) Neuropathy 04-23-2019 Chronic Other nervous system disorders (20 sources) Chronic pain; Translations: [Other chronic pain] 07-16-2023 Chronic Other nervous system disorders (20 sources) Other chronic pain; Translations: [Other chronic pain] Onset: 1 Resolved: 2 Chronic Other nervous system disorders (1 source) Other disorders of peripheral nervous system; Translations: [OTH DISORDERS PERIPHERAL NERV SYS] Onset: 3 Chronic Other nervous system disorders (15 sources) Carpal tunnel syndrome of left wrist; Translations: [Carpal tunnel syndrome, left upper limb] Onset: 4 09-24-2023 Chronic Other nervous system disorders (2 sources) Bilateral carpal tunnel syndrome; Translations: [Carpal tunnel syndrome, bilateral upper limbs] 02-11-2024 Chronic Other nervous system disorders (1 source) Other chronic pain; Translations: [Other chronic pain] Onset: 4 Chronic Other nervous system disorders (20 sources) Paresthesia; Translations: [Paresthesia of skin] Onset: 4 09-24-2023 Episodic Other non-traumatic joint disorders (4 sources) Shoulder joint pain; Translations: [Pain in right shoulder] Episodic Other non-traumatic joint disorders (18 sources) Pain in right shoulder; Translations: [Right shoulder pain] Episodic Other non-traumatic joint disorders (2 sources) Pain in right knee Episodic Other non-traumatic joint disorders (1 source) Pain in left hip Episodic Other nutritional; endocrine; and metabolic disorders (11 sources) Body mass index 40+ - severely [...] CHOL METAB UNS] Onset: 2 Chronic Other nutritional; endocrine; and metabolic disorders (2 sources) Obesity caused by energy imbalance; Translations: [Other obesity due to excess calories] 03-10-2024 Chronic Other screening for suspected conditions (not [...] syndrome; Translations: [Obstructive sleep apnea (adult) (pediatric)] Onset: 4 06-16-2023 Chronic Residual codes; unclassified (1 source) Obstructive sleep apnea (adult) (pediatric); Translations: [OBSTRUCTIVE SLEEP APNEA] Onset: 3 Chronic Residual codes; unclassified (2 sources) Hypersomnia; Translations: [Hypersomnia, unspecified] 03-10-2024 Chronic Residual codes; unclassified (4 sources) Asymptomatic [...] lumbosacral region] Onset: 1 Resolved: 2 Chronic Spondylosis; intervertebral disc disorders; other back problems (20 sources) Cervicalgia; Translations: [Dorsalgia, unspecified] Onset: 1 Resolved: 2 Episodic Unclassified (2 sources) COUGH, UNSPECIFIED; Translations: [COUGH, UNSPECIFIED] Onset: 3 Unclassified (1 source) CONTACT W/AND (SUSP) EXPOS COVID-19; Translations: [CONTACT W/AND (SUSP) EXPOS COVID-19] Onset: 3 Urinary tract infections (13 sources) Urinary tract infectious disease; Translations: [Urinary [...] [Other chest pain] Onset: 10-23-2021 Episodic Other connective tissue disease (20 sources) Fibromyalgia; Translations: [Fibromyalgia] Onset: 09-24-2023 04-23-2019 Episodic Other endocrine disorders (4 sources) Endocrine disorder, unspecified; Translations: [ENDOCRINE DISORDER UNSPECIFIED] Onset: 05-20-2022 Episodic Other inflammatory condition of skin (1 source) Other pruritus; Translations: [OTHER PRURITUS] Onset: 05-22-2022 Episodic Other non-traumatic joint disorders (2 sources) Pain in left knee Onset: 06-07-2021 Resolved: 07-09-2021 Episodic Unclassified (1 source) COUGH, UNSPECIFIED; Translations: [COUGH, UNSPECIFIED] Onset: 07-14-2022 Results Test Name Value Interpretation Reference Range Facility MR lumbar spine [facility] MR lumbar spine [place] [facility] [place] [address] MRI Report Signed Patient: Shailesh Blake MR#: [id number] : 1970 Acct:[id number] Age/Sex: 53 / F ADM Date: 02/25/24 Loc: Room: Type: [facility] Attending Dr: Asif Mejia MD Copies to: Asif Mejia MD Ordering Provider: Asif Mejia MD Date of Service: 02/25/24 MR/MR lumbar spine wo con: M54.16 - Radiculopathy, lumbar region MRI Lumbar Spine withoutcontrast TECHNIQUE: Multiplanar T1 and T2-weighted imaging of lumbar spine obtained without contrast. HISTORY: Low back pain, chronic COMPARISON: 02/14/21 The last fully segmented vertebral pair is operationally defined as L5/S1. POST SURGERY CHANGES: None BONE MARROW INFILTRATION: None BONE MARROW EDEMA: None BONY ALIGNMENT: Adequate bony alignment identified. SPINAL CANAL: No significant central canal narrowing. LUMBAR FRACTURE: None BONY LESIONS: None KIDNEYS: No hydronephrosis is identified. AORTA: No aortic aneurysm is seen. CONUS MEDULLARIS : The distal spinal cord is in adequate position without abnormality. Additional findings CONJOINED NERVE ROOT: None Lower thoracic level: Unremarkable L1-2 :Mild disc bulge. Patent central canal and neural foramen. L2-3: Mild disc bulge. Patent central canal and neural foramen. Mild posterior element hypertrophy. L3-4: Mild spondylosis. Posterior disc bulge. LEFT foraminal disc protrusion. Mild central canal stenosis. Mild bilateral neural foraminal narrowing. Posterior element hypertrophy. L4-5: Mild spondylosis. Mild anterolisthesis. Mild diffuse disc bulge. Posterior element hypertrophy. Patent neural foramen. L5-S1: No disc protrusion. Posterior element hypertrophy. Patent central canal and neural foramen. MR/MR lumbar spine wo con IMPRESSION: Multilevel discovertebral degenerative changes similar prior examination. Similar levels of mild central canal stenosis and neural foraminal narrowing. No new findings. Pre-MRI plain film assessment: None Impression dictated by: Benito Blake M.D.02/25/2024 3:32 PM Dictation Location: [place] [address] Transcribed By: [facility] 02/25/24 153 Dictated By: Benito Blake DO 02/25/24 1527 Signed By: 02/25/24 1532 Normal [facility] EMG 2 Extremitieson 02-19-20 [facility] NVC 9-10 Nerveson 02-19-2024 [facility] C Urineon 02-14-2024 Bacteria identified Cx Nom (U) Microbiology PROCEDURE: Urine Culture [R1] SOURCE: U CleanCatch BODY SITE: COLLECTED DATE/TIME: 02/12/2024 09:25 EDT RECEIVED DATE/TIME: 02/12/2024 17:43 EDT START DATE/TIME: 02/12/2024 17:43 EDT FREE TEXT SOURCE: KULWINDER MOCTEZUMA, KAYY MIRAMONTES PA-C, KAYY Buenrostro FINAL REPORTS Final Report [] Verified Date/Time: 02/14/2024 10:55 EDT >100,000 cfu/ml Escherichia coli SUSCEPTIBILITY RESULTS LEGEND: S=Susceptible, N/R=Not Reported, Blank=Data not available, or drug not advisable or tested, I=Intermediate, ESBL=Extended spectrum beta-lactamase, R=Resistant, TFG=Thymidine-depende nt strain, NITIN=Beta-lactamase positive, LUIZ=mcg/m;(mg/L), S*=Predicted susceptible interp, R*=Predicted resistant interp EC Antibiotic LUIZ Dilutn LUIZ Interp Ampicillin <=8 S Ampicillin/ <=8/4 S Sulbactam Aztreonam <=4 S Cefazolin <=2 S Cefepime <=2 S Ceftazidime <=1 S Ceftazidime/ <=8 S Avibactam Ceftriaxone <=1 S Cefuroxime <=4 S Ciprofloxacin <=0.25 S Ertapenem <=0.5 S Gentamicin <=2 S Levofloxacin <=0.5 S Meropenem <=1 S Nitrofurantoin <=32 S Piperacillin/ <=8 S Tazobactam Tetracycline <=4 S Tobramycin <=2 S Trimethoprim/ <=2/38 S Sulfa Performing Locations R1: This test was performed at: [facility], [address] [place] [address], [phone] [phone] , Normal [facility] Comment on above: Performed By: #### [id number] #### [facility] [address] [place] [address] Ambulatory Visit Summaryon 1 Ambulatory Visit Summary Ambulatory Visit Summary SHAILESH BLAKE :1970 Visit Date:02/12/2024 Ambulatory Visit Instructions Your Diagnosis OAB (overactive bladder) Your Care Team Attending Physician - KAYY MIRAMONTES PA-C Primary Care Physician - ALYSSA ARREOLA CNP This Is Your Medications List albuterol (Albuterol (Eqv-ProAir HFA)) benztropine (benztropine 0.5 mg oral tablet) brexpiprazole (Rexulti 4 mg oral tablet) busPIRone (busPIRone 10 mg Tab) erenumab (Aimovig SureClick 70 mg/mL subcutaneous solution) fluticasone nasal (fluticasone 0.05 mg/inh Nasal [place]) gabapentin (gabapentin 400 mg Cap) lamotrigine (lamotrigine 100 mg Tab) lamotrigine (lamotrigine 200 mg Tab) meclizine (meclizine 25 mg Tab) metformin (metformin 500 mg Tab) omeprazole (omeprazole 40 mg Cap-DR) rimegepant (Nurtec ODT 75 mg oral tablet, disintegrating) simvastatin (simvastatin 40 mg Tab) spironolactone (spironolactone 50 mg Tab) venlafaxine (venlafaxine 150 mg Cap-ER) Procedures Performed Injection of botulinum toxin type A into detrusor muscle of urinary bladder (07/15/2023), Cystoscopy (02/20/2021), Cystoscopy (01/04/2020), cysto/ botox (06/02/2018), cystoscopy (01/28/2017), back surgery, carpel tunnel release, cesearian section, Cholecystectomy, D&C, History of tubal ligation. Discharge Vitals Temperature (Temporal Artery) 37 ?C Heart Rate (Peripheral) 75 Respiratory Rate 16 Blood Pressure 133/89 Height 173 cm Height 68 in Weight 146.2 kg Weight 321.64 lb BMI 48.85 Medications What How Much When Instructions Unchanged [...] fluticasone nasal (fluticasone 0.05 mg/ inh Nasal [place]) Nasal Inhalation Every day Unchanged gabapentin (gabapentin 400 mg Cap) By Mouth 3 times a day Unchanged lamotrigine (lamotrigine 100 mg Tab) By Mouth 2 times a day Unchanged lamotrigine (lamotrigine 200 mg Tab) By Mouth 2 times a day Unchanged meclizine (meclizine 25 mg Tab) By Mouth 3 times a day Unchanged metformin (metformin 500 mg Tab) 1 Tablets Unchanged omeprazole (omeprazole 40 mg Cap-DR) By Mouth Every day Unchanged rimegepant (Nurtec ODT 75 mg oral tablet, disintegrating) Unchanged simvastatin (simvastatin 40 mg Tab) By [...] 50.0-59.9, adult Depression Fibromyalgia Gastroesophageal reflux Hyperlipidemia Microscopic hematuria Migraine Mixed incontinence Neuropathy OAB (overactive bladder) Seizure Patient Survey You may receive a survey via text or e-mail asking about your office visit. Please share your experience with us by completing your survey. We appreciate your feedback and thank you for choosing us for your care. Normal [facility] Urology Office/Clinic Noteon 02-12-2024 Urology Office/Clinic Note Urology Office/Clinic Note Chief Complaint 6 month f/u to Botox HPI Staff 53 yr old female here today for 6 mth f/u S/P Botox 100u 07/15/23 Dx: Mixed incontinence, OAB PVR today is 21ml. Dysuria: denies Incomplete bladder emptying: PVR is 21 today Hematuria: denies Frequency: every 1-2 hours Urgency: yes Nocturia: 3x Stream: strong but has intermittency no straining Leaking: rare Post void dripping: denies Wearing pads/ Depends: sometimes wears a pad if she is leaving the house Urge incontinence: yes at times Stress incontinence: with sneezing Incontinence without Sensory Awareness: denies Abdominal pain: denies Flank pain: sometimes has pain in both sides after she has went to the bathroom Sexual complaints: denies Review of Systems PHQ Score Initial Depression Screen Score: 0 SCORE no fever, chills, malaise, myalgia. no rash/lesions. no chest pain, palpitations, or SOB. no abdominal pain, nausea, vomiting. no unilateral calf swelling, redness, pain Physical Exam Vitals & Measurements T: 37 ?C(Temporal Artery) HR: 75(Peripheral) RR: 16 BP: 133/89 HT: 68 in HT: 173 cm WT: 146.2 kg WT: 321.64 lb BMI: 48.85 General: nontoxic, NAD Mouth: moist mucosa Lungs: normal respiratory effort Cardio: regular rate, good distal perfusion Abdomen: nondistended, no suprapubic distention or tenderness, no CVA tenderness Neurologic: Grossly normal Skin: No rashes or suspicious lesions Assessment/Plan 1. UTI (urinary tract infection) (N39.0: Urinary tract infection, site not specified) +UA Does have cloudy/dark/odorous urine. No burning or SP pain. +increase frequency/urgency - thought the Botox was wearing off. No signs of pyelo/sepsis. Nontoxic. Tolerating po. Afebrile. -Bactrim DS x 7d. -C&S Ordered: sulfamethoxazole-trim ethoprim, 1 tab(s), Oral, BID for 7 day(s), 14 tab(s), Refill(s) 0, [id number], 173, cm, 02/12/24 9:11:00 EDT, Height/Length Dosing, 146.2, kg, 02/12/24 9:11:00 EDT, Weight Dosing E&M of Est. Patient Moderate 30-39 Min 38717 2. OAB (overactive bladder) (N32.81: Overactive bladder) S/p Botox 100u 06/02/18, 01/04/20, 07/18/20 & 07/15/23. S/p Botox 200u 02/20/21. Took Tolterodine 4mg in the past. PVR (cc): 04/02/21 - 39 08/09/21 - 47 05/28/23 - 0 07/29/23- 113 TODAY - 21ml Has noticed worsening frequency/urgency/UUI in the past month or so. Thought the Botox was wearing off. However it appears she's infected. Therefore we will treat current infection and see where sx go. -If sx improve after UTI tx, can continue to monitor and contact us once sx worsen again. If sx do not improve despite abx, will need to make sure infection cleared and then if so, schedule repeat Botox. Ordered: sulfamethoxazole-trim ethoprim, 1 tab(s), Oral, BID for 7 day(s), 14 tab(s), Refill(s) 0, [id number], 173, cm, 02/12/24 9:11:00 EDT, Height/Length Dosing, 146.2, kg, 02/12/24 9:11:00 EDT, Weight Dosing 65519 Measure Post Void residual urine and/or bladder capacity by US- non-imaging E&M of Est. Patient Moderate 30-39 Min 50383 Urine Culture Urnls Dip Stick Auto w/o Microscopy POC 54220 3. Mixed incontinence (N39.46: Mixed incontinence) Marked improvement in OAB/UUI after Botox 07/15/23. See #1 and #2. Knows Botox won't help w SYLVIE. Encouraged home PFPT. Ordered: sulfamethoxazole-trim ethoprim, 1 tab(s), Oral, BID for 7 day(s), 14 tab(s), Refill(s) 0, [id number], 173, cm, 02/12/24 9:11:00 EDT, Height/Length Dosing, 146.2, kg, 02/12/24 9:11:00 EDT, Weight Dosing E&M of Est. Patient Moderate 30-39 Min 71137 Follow-up With When Contact Information KULWINDER MOCTEZUMA, KAYY Buenrostro, URL [address] [place] [address] Business (1) Additional Instructions: pending results of imaging/testing, will call with next steps Patient Education Overactive Bladder, Adult Problem List/Past Medical History Ongoing Arthritis BMI 50.0-59.9, adult Depression Fibromyalgia Gastroesophageal reflux Hyperlipidemia Microscopic hematuria Migraine Mixed incontinence Neuropathy OAB (overactive bladder) Seizure UTI (urinary tract infection) Historical No qualifying data Procedure/Surgical History Injection of botulinum toxin type A into detrusor muscle of urinary bladder (07/15/2023), Cystoscopy (02/20/2021), Cystoscopy (01/04/2020), cysto/ botox (06/02/2018), cystoscopy (01/28/2017), back surgery, carpel tunnel release, cesearian section, Cholecystectomy, D&C, History of tubal ligation. Medications Aimovig SureClick 70 mg/mL subcutaneous solution, 70 mg Albuterol (Eqv-ProAir HFA), Inhalation, q6hr Bactrim D.S. 800 mg-160 mg Tab, 1 tab(s), Oral, BID benztropine 0.5 mg oral tablet, Oral, Once a day (at bedtime) busPIRone 10 mg Tab, Oral, BID fluticasone 0.05 mg/inh Nasal [place], Nasal, Daily gabapentin 400 mg Cap, Oral, TID lamotrigine 100 mg Tab, Oral, BID lamotrigine 200 mg Tab, Oral, BID meclizine 25 mg (more content not included)... Normal [facility] Comment on above: Result Comment: Elec tronically Signed By: KAYY MIRAMONTES PA-C\.br\Date and Time Signed: 02/12/24 09:45 EDT Provider Letteron 12-22-2023 Provider Letter Provider Letter December 22, 2023 SHAILESH BLAKE [address] [place] [address] : 1970 Dear Shailesh , We have been trying to reach you with no success, this is our second letter trying to reach you. You have an appointment with Kayy Miramontes PA-C on February 03, 2024 which will need to be rescheduled since she will be out of the office that day. Please contact the office at the number listed below to get this appointment rescheduled at your earliest convenience. Thank you for your prompt attention to this matter. Sincerely, [facility] [address], [place] [address] Normal [facility] XR knee BI 4Von 12-11-2023 XR knee BI 4V [facility] [place] [address] [place] [address] XRay Report Signed Patient: Shailesh Blake MR#: [id number] : 1970 Acct:[id number] Age/Sex: 52 / F ADM Date: 12/11/23 Loc: XD Room: Type: [facility] Attending Dr: Destini Kilgore [employer] SAL[employer] REPRESENTATIVE Copies to: Destini Kilgore NP Ordering Provider: Destini Kilgore NP Date of Service: 12/11/23 XR/XR knee BI 4V: M17.0 - Bilateral primary osteoarthritis of knee 4 views both knee plain film COMPARISON: None HISTORY: Bilateral primary osteoarthritis of the knees. Bilateral knee pain ACUTE FINDINGS: No acute findings DEGENERATIVE CHANGE: Mild bilateral medial joint space narrowing. Marginal spurring. Bilateral superior patellar enthesophytes SOFT TISSUE FINDINGS: Unremarkable JOINT EFFUSION: None POSTOP CHANGES: None BONE MINERALIZATION: Adequate XR/XR knee BI 4V IMPRESSION: Mild bilateral knee degeneration Impression dictated by: Benito Blake M.D.12/11/2023 3:58 PM Dictation Location: [place] [address] Transcribed By: [facility] 12/11/23 1558 Dictated By: Benito Blake DO 12/11/23 1557 Signed By: 12/11/23 1558 Normal [facility] Provider Letteron 11-19-2023 Provider Letter Provider Letter November 19, 2023 SHAILESH BLAKE [address] [place] [id number] : 1970 Dear Shailesh, We have been trying to reach you with no success. You have an appointment with Kayy Miramontes PA-C on 02/03/2024 which will need to be rescheduled since she will be out of the office at that time. Please contact the office at the number listed below to get this appointment rescheduled at your earliest convenience. If you would update your contact information at that time we would appreciate it. Thank you for your prompt attention to this matter. Sincerely, [facility] [address], [place] [address] [facility] Ambulatory Visit Summaryon 0 07-29-2023 Ambulatory Visit Summary SHAILESH BLAKE :1970 Visit Date:07/29/2023 Ambulatory Visit Instructions Your Diagnosis Mixed incontinence OAB (overactive bladder) Your Care Team Attending Physician - KAYY MIRAMONTES PA-C Primary Care Physician - ALYSSA ARREOLA CNP This Is Your Medications List Contact prescribing physician if questions or concerns albuterol (Albuterol (Eqv-ProAir HFA)) benztropine (benztropine 0.5 mg oral tablet) brexpiprazole (Rexulti 4 mg oral tablet) busPIRone (busPIRone 10 mg Tab) erenumab (Aimovig SureClick 70 mg/mL subcutaneous solution) fluticasone nasal (fluticasone 0.05 mg/inh Nasal [place]) gabapentin (gabapentin 400 mg Cap) lamotrigine (lamotrigine 100 mg Tab) lamotrigine (lamotrigine 200 mg Tab) meclizine (meclizine 25 mg Tab) omeprazole (omeprazole 40 mg Cap-DR) simvastatin (simvastatin 40 mg Tab) spironolactone (spironolactone 50 mg Tab) venlafaxine (venlafaxine 150 mg Cap-ER) [Image Removed: STOP]Stop taking these medications tolterodine (tolterodine 4 mg Cap-ER) Procedures Performed Injection of botulinum toxin type A into detrusor muscle of urinary bladder (07/15/2023), Cystoscopy (02/20/2021), Cystoscopy (01/04/2020), cysto/ botox (06/02/2018), cystoscopy (01/28/2017), back surgery, carpel tunnel release, cesearian section, Cholecystectomy, D&C, History of tubal ligation. Discharge Vitals Temperature (Temporal Artery) 36.9 ?C Heart Rate (Peripheral) 71 Respiratory Rate 16 Blood Pressure 138/88 Height 173 cm Height 68 in Weight 147.5 kg Weight 324.5 lb BMI 49.28 What to do next You Need to Schedule the Following Appointments Follow Up with KAYY MIRAMONTES PA-C, URL When: In 6 months Comments: Pt to call and cancel if asymptomatic. Where: [address] [place] [address] [place] [address] Medications What How Much When Instructions Unchanged albuterol (Albuterol (Eqv-ProAir HFA)) Inhalation Every 6 hours Contact prescribing physician if questions or concerns Unchanged benztropine (benztropine 0.5 mg oral tablet) By Mouth Once a day (at bedtime) Contact prescribing physician if questions or concerns Unchanged brexpiprazole (Rexulti 4 mg oral tablet) By Mouth Every day Contact prescribing physician if questions or concerns Unchanged busPIRone (busPIRone 10 mg Tab) By Mouth 2 times a day Contact prescribing physician if questions or concerns Unchanged erenumab (Aimovig SureClick 70 mg/ mL subcutaneous solution) 70 Milligram Contact prescribing physician if questions or concerns Unchanged fluticasone nasal (fluticasone 0.05 mg/ inh Nasal [place]) Nasal Inhalation Every day Contact prescribing physician if questions or concerns Unchanged gabapentin (gabapentin 400 mg Cap) By Mouth 3 times a day Contact prescribing physician if questions or concerns Unchanged lamotrigine (lamotrigine 100 mg Tab) By Mouth 2 times a day Contact prescribing physician if questions or concerns Unchanged lamotrigine (lamotrigine 200 mg Tab) By Mouth 2 times a day Contact prescribing physician if questions or concerns Unchanged meclizine (meclizine 25 mg Tab) By Mouth 3 times a day Contact prescribing physician if questions or concerns Unchanged omeprazole (omeprazole 40 mg Cap-DR) By Mouth Every day Contact prescribing physician if questions or concerns Unchanged simvastatin (simvastatin 40 mg Tab) By Mouth Once a day (in the evening) Contact prescribing physician if questions or concerns Unchanged spironolactone (spironolactone 50 mg Tab) By Mouth 2 times a day Contact prescribing physician if questions or concerns Unchanged venlafaxine (venlafaxine 150 mg Cap-ER) By Mouth Every day Contact prescribing physician if questions or concerns What How Much When Comments Stop Taking tolterodine (tolterodine 4 mg Cap-ER) 1 Capsules By Mouth Every day Duration: 30 Days Allergies Tape (Rash) aspirin (Shakes) desonide topical (Unknown) Problems Ongoing - Any problem that you are currently receiving treatment for. Arthritis BMI 50.0-59.9, adult Depression Fibromyalgia Gastroesophageal reflux Hyperlipidemia Microscopic hematuria Migraine Mixed incontinence Neuropathy OAB (overactive bladder) Seizure Patient Survey You may receive a survey via text or e-mail asking about your office visit. Please share your experience with us by completing your survey. We appreciate your feedback and thank you for choosing us for your care. Education Materials Overactive Bladder, Adult Overactive bladder is a condition in which a person has a sudden and frequent need to urinate. A person might also leak urine if he or she cannot get to the bathroom fast enough (urinary incontinence). Sometimes, symptoms can interfere with work or social activities. What are the causes? Overactive bladder is associated with poor nerve signals between your bladder and your brain. Your bladder may get the signal to empty b (more content not included)... Normal [facility] Patient Educationon 07-29-19 24 Patient Education Obstetrics and Gynecology Overactive Bladder, Adult Overactive bladder is a condition in which a person has a sudden and frequent need to urinate. A person might also leak urine if he or she cannot get to the bathroom fast enough (urinary incontinence). Sometimes, symptoms can interfere with work or social activities. What are the causes? Overactive bladder is associated with poor nerve signals between your bladder and your brain. Your bladder may get the signal to empty before it is full. You may also have very sensitive muscles that make your bladder squeeze too soon. This condition may also be caused by other factors, such as: ? Medical conditions: ? Urinary tract infection. ? Infection of nearby tissues. ? Prostate enlargement. ? Bladder stones, inflammation, or tumors. ? Diabetes. ? Muscle or nerve weakness, especially from these conditions: ? A spinal cord injury. ? Stroke. ? Multiple sclerosis. ? Parkinson's disease. ? Other causes: ? Surgery on the uterus or urethra. ? Drinking too much caffeine or alcohol. ? Certain medicines, especially those that eliminate extra fluid in the body (diuretics). ? Constipation. What increases the risk? You may be at greater risk for overactive bladder if you: ? Are an older adult. ? Smoke. ? Are going through menopause. ? Have prostate problems. ? Have a neurological disease, such as stroke, dementia, Parkinson's disease, or multiple sclerosis (MS). ? Eat or drink alcohol, spicy food, caffeine, and other things that irritate the bladder. ? Are overweight or obese. What are the signs or symptoms? Symptoms of this condition include a sudden, strong urge to urinate. Other symptoms include: ? Leaking urine. ? Urinating 8 or more times a day. ? Waking up to urinate 2 or more times overnight. How is this diagnosed? This condition may be diagnosed based on: ? Your symptoms and medical history. ? A physical exam. ? Blood or urine tests to check for possible causes, such as infection. You may also need to see a health care provider who specializes in urinary tract problems. This is called a urologist. How is this treated? Treatment for overactive bladder depends on the cause of your condition and whether it is mild or severe. Treatment may include: ? Bladder training, such as: ? Learning to control the urge to urinate by following a schedule to urinate at regular intervals. ? Doing Kegel exercises to strengthen the pelvic floor muscles that support your bladder. ? Special devices, such as: ? Biofeedback. This uses sensors to help you become aware of your body's signals. ? Electrical stimulation. This uses electrodes placed inside the body (implanted) or outside the body. These electrodes send gentle pulses of electricity to strengthen the nerves or muscles that control the bladder. ? Women may use a plastic device, called a pessary, that fits into the vagina and supports the bladder. ? Medicines, such as: ? Antibiotics to treat bladder infection. ? Antispasmodics to stop the bladder from releasing urine at the wrong time. ? Tricyclic antidepressants to relax bladder muscles. ? Injections of botulinum toxin type A directly into the bladder tissue to relax bladder muscles. ? Surgery, such as: ? A device may be implanted to help manage the nerve signals that control urination. ? An electrode may be implanted to stimulate electrical signals in the bladder. ? A procedure may be done to change the shape of the bladder. This is done only in very severe cases. Follow these instructions at home: Eating and drinking ? Make diet or lifestyle changes recommended by your health care provider. These may include: ? Drinking fluids throughout the day and not only with meals. ? Cutting down on caffeine or alcohol. ? Eating a healthy and balanced diet to prevent constipation. This may include: ? Choosing foods that are high in fiber, such as beans, whole grains, and fresh fruits and vegetables. ? Limiting foods that are high in fat and processed sugars, such as fried and sweet foods. Lifestyle ? Lose weight if needed. ? Do not use any products that contain nicotine or tobacco. These include cigarettes, chewing tobacco, and vaping devices, such as e-cigarettes. If you need help quitting, ask your health care provider. General instructions ? Take visv-wma-malztcs and prescription medicines only as told by your health care provider. ? If you were prescribed an antibiotic medicine, take it as told by your health care provider. Do not stop taking the antibiotic even if you start to feel better. ? Use any implants or pessary as told by your health care provider. ? If needed, wear pads to absorb urine leakage. ? Keep a log to track how much and when you drink, and when you need to urinate. This will help your health care provider monitor yo (more content not included)... Normal [facility] Urology Office/Clinic Noteon 07-29-2023 Urology Office/Clinic Note Chief Complaint PRW pt. f/u to Botox and PVR scan HPI Staff PRW patient S/P Botox 100u 07/15/23 Dx: Mixed incontinence, OAB *Started on Tolteridine ER 4mg. QD at last encounter w/KELLY 05/28/23 PVR today 113ml Dysuria: denies Incomplete bladder emptying: occasionally Hematuria: denies Frequency: denies Urgency: denies Nocturia: 1x a night Stream: strong and staedy Leaking: denies Post void dripping: denies Wearing pads/ Depends: denies Urge incontinence: denies Stress incontinence: yes Incontinence without Sensory Awareness: deneis Abdominal pain: denies Flank pain: denies Sexual complaints: _ History of Present Illness Tests Reviewed: Reviewed UA & Op Note I have reviewed the previous health record information and history for this patient from Kayy STOKES I have reviewed and verified the staff HPI to be accurate for this encounter. There have been no associated fever, chills, flank pain, or blood in the urine. Denies any urinary infections since last encounter. Review of Systems PHQ Score Initial Depression Screen Score: 0 SCORE no fever, chills, malaise, myalgia. no rash/lesions. no chest pain, palpitations, or SOB. no abdominal pain, nausea, vomiting. no unilateral calf swelling, redness, pain Physical Exam Vitals & Measurements T: 36.9 ?C(Temporal Artery) HR: 71(Peripheral) RR: 16 BP: 138/88 HT: 68 in HT: 173 cm WT: 147.5 kg WT: 324.5 lb BMI: 49.28 General: nontoxic, NAD Mouth: moist mucosa Lungs: normal respiratory effort Cardio: regular rate, good distal perfusion Abdomen: nondistended, no suprapubic distention or tenderness, no CVA tenderness Neurologic: Grossly normal Skin: No rashes or suspicious lesions Assessment/Plan PRW pt States she had only one UTI in the past year. Denies gross hematuria. 1. Mixed incontinence (N39.46: Mixed incontinence) S/p Botox 100u 06/02/18, 01/04/20, 07/18/20 & 07/15/23. S/p Botox 200u 02/20/21. Took Tolterodine 4mg in the past. we tried to restart this at last ov prior to getting Botox scheduled but insurance denied so pt never started it. PVR (cc): 04/02/21 - 39 08/09/21 - 47 05/28/23 - 0 07/29/23- 113 UA today shows only trace leuks. on no oral bladder meds at this time very pleased w improvement from Botox. offered PRN f/u once Botox wears off vs scheduled. pt prefers the latter in 6 mos. will call though if sx still well-controlled and push back appt. 2. OAB (overactive bladder) (N32.81: Overactive bladder) see #1 Follow-up With When Contact Information KULWINDER MOCTEZUMA, KAYY Buenrostro, URL In [address] [place] [address] Additional Instructions: Pt to call and cancel if asymptomatic. Patient Education Overactive Bladder, Adult I, Caren Shaw, personally scribed for Kayy Miramontes PA-C on 07/29/2023 15:22:02. . Documentation recorded by the jesika Shaw accurately reflects the services(s) I performed and decisions made by me. Authenticated by Kayy Miramontes PA-C on 07/29/2023 15:33:20. Problem List/Past Medical History Ongoing Arthritis BMI 50.0-59.9, adult Depression Fibromyalgia Gastroesophageal reflux Hyperlipidemia Microscopic hematuria Migraine Mixed incontinence Neuropathy OAB (overactive bladder) Seizure Historical No qualifying data Procedure/Surgical History Injection of botulinum toxin type A into detrusor muscle of urinary bladder (07/15/2023), Cystoscopy (02/20/2021), Cystoscopy (01/04/2020), cysto/ botox (06/02/2018), cystoscopy (01/28/2017), back surgery, carpel tunnel release, cesearian section, Cholecystectomy, D&C, History of tubal ligation. Medications Aimovig SureClick 70 mg/mL subcutaneous solution, 70 mg Albuterol (Eqv-ProAir HFA), Inhalation, q6hr benztropine 0.5 mg oral tablet, Oral, Once a day (at bedtime) busPIRone 10 mg Tab, Oral, BID fluticasone 0.05 mg/inh Nasal [place], Nasal, Daily gabapentin 400 mg Cap, Oral, TID lamotrigine 100 mg Tab, Oral, BID lamotrigine 200 mg Tab, Oral, BID meclizine 25 mg Tab, Oral, TID omeprazole 40 mg Cap-DR, Oral, Daily Rexulti 4 mg oral tablet, Oral, Daily simvastatin 40 mg Tab, Oral, qPM spironolactone 50 mg Tab, Oral, BID venlafaxine 150 mg Cap-ER, Oral, Daily Allergies Tape (Rash) aspirin (Shakes) desonide topical (Unknown) Social History Alcohol - Denies Alcohol Use, 05/03/2019 Tobacco Never (less than 100 in lifetime) Tobacco Use:. Never Smokeless Tobacco Use:., 07/29/2023 Family History Heart disease: Mother. Hypertension: Mother. Immunizations Vaccine Date Status Comments zoster vaccine, inactivated 10/07/2021 Recorded SARSCoV2 mRNA(ckctyboxg-pzji-l ucros) vac 10/07/2021 Recorded SARS-CoV-2 (COVID-19) mRNA BNT-162b2 vax 2020 Recorded SARS-CoV-2 (COVID-19) mRNA BNT-162b2 vax 12/02/2020 Recorded influenza virus vaccine, inactivated - Not Given Postpone (more content not included)... [facility] Comment on above: Result Comment: Elec tronically Signed By: KAYY MIRAMONTES PA-C\.br\Date and Time Signed: 07/29/23 15:33 EDT\.br\Electronically Co-Signed By: Carne Shaw MA\.br\Date and Time Co-Signed: 07/29/23 15:22 EDT Consent for Procedure/Surger yon 07-15-2023 Consent for Procedure/Surgery [id number]# 1.00TIFF [facility] Consent for Treatmenton - Consent for Treatment [id number]#1 .00TIFF [facility] IntraOperative Documentson 0 07-15-2023 IntraOperative Documents [id number]# 1.00TIFF [facility] Main OR Intraoperative Recor don 07-15-2023 Main OR Intraoperative Record IntraOp Document Type FTURO Summary Primary Physician: Hermilo GASTON MD Finalized Date/Time: 07/15/23 08:54:30 Pt. Name: SHAILESH BLAKE/Sex: 1970 Female Med Rec #: [id number] Physician: Hermilo GASTON MD Financial #: [id number] Pt. Type: O Room/Bed: / Admit/Disch: 07/15/23 07:29:47 - Institution: Case Times FTURO Entry 1 Patient Times In Room 07/15/23 08:40:00 Out Room 07/15/23 08:56:00 Procedure Times Start 07/15/23 08:42:00 Stop 07/15/23 08:51:00 Anesthesia Times Last Modified By: Sushma MASON, TRAVONOR, Mary Beth 07/15/23 08:53:50 Case Attendance FTURO Entry 1 Entry 2 Entry 3 Case Attendee ALEK JARAMILLO, Hermilo Ordaz RN, CNOR, Dakota HERNANDEZ, Lissa Clinton Role Performed Surgeon - Primary Scrub - Primary Scrub - Primary Time In 07/15/23 08:40:00 07/15/23 08:40:00 07/15/23 08:40:00 Time Out 07/15/23 08:56:00 07/15/23 08:56:00 07/15/23 08:56:00 Procedure CYSTOSCOPY LOCAL WITH CYSTOSCOPY LOCAL WITH CYSTOSCOPY LOCAL WITH URETHRAL DILATION(.) URETHRAL DILATION(.) URETHRAL DILATION(.) Comments Last Modified By: Sushma MASON, TRAVONOR, Sushma MASON, ASHKAN, Sushma MASON, TRAVONOR, Mary Beth 07/15/23 Mary Beth 07/15/23 Mary Beth 07/15/23 08:53:51 08:53:51 08:53:51 Surgical Procedures FTURO Entry 1 Procedure Description Procedure CYSTOSCOPY LOCAL WITH Modifiers . URETHRAL DILATION Surgeon Description CYSTO 100 UNITS BOTOX Primary Procedure Yes Primary Surgeon ALEK JARAMILLO, Hermilo Yu Start 07/15/23 08:42:00 Stop 07/15/23 08:51:00 Anesthesia Type Local Surgical Service Urology Wound Class 2 - Clean-Contaminated Last Modified By: ASHKAN Ordaz RN, Ruthann 07/15/23 08:53:52 General Comments: botox 100 units lot [id number] General Case Data FTURO Pre-Care Text: Classifies surgical wound, implements aseptic technique, initiates traffic control Entry 1 Case Information OR URO 1 FT Case Level None Wound Class 2 - Clean-Contaminated Specialty Urology Preop Diagnosis MIXED INCONTINENCE, Postop Same As Preop No OVERACTIVE BLADDER Postop Diagnosis MIXED INCONTINENCE, Outcomes Met? Yes OVERACTIVE BLADDER, Last Modified By: ASHKAN Ordaz RN, Mary Beth 07/15/23 08:50:26 Post-Care Text: The patient is [...] Verified Availability Equipment, Medication Time Out Hermilo GASTON MD, Verified (If Participants Sushma MASON, TRAVONOR, [...] ASHKAN Ordaz RN, Ruthann 07/15/23 08:54 Normal [facility] Main OR Preoperative Recordo n 07-15-2023 Main OR Preoperative Record Holding Area Document Type FTURO Summary Primary Physician: Hermilo GASTON MD Finalized Date/Time: 07/15/23 07:47:45 Pt. Name: SHAILESH BLAKE Roma Abrams/Sex: 1970 Female Med Rec #: [id number] Physician: Hermilo GASTON MD Financial #: [id number] Pt. Type: O Room/Bed: / Admit/Disch: 07/15/23 [...] By: Lissa Quezada RN 07/15/23 07:47 Normal [facility] Operative Reporton Operative Report Patient: SHAILESH BLAKE Age: 52 years Sex: Female : 1970 Associated Diagnoses: None Author: Hermilo GASTON MD Procedure Operative Information Details: Date/ Time: [...] with antibiotic coverage, Follow up arranged. Normal [facility] Comment on above: Result Comment: Elec tronically Signed By: ALEK JARAMILLO, Hermilo Azul.br\Date and Time Signed: 07/15/23 08:53 EDT Outpatient Surgery Discharge Instructionon 07-15-2023 Outpatient Surgery Discharge Instruction [id number]# 1.00TIFF [facility] Pre-Certification Formon Pre-Certification Form [id number]#1 .00TIFF [facility] C Urineon 07-10-2023 Bacteria identified Cx Nom (U) Microbiology PROCEDURE: Urine Culture [R1] SOURCE: U CleanCatch BODY SITE: COLLECTED DATE/TIME: 07/08/2023 14:30 EDT RECEIVED DATE/TIME: 07/08/2023 18:08 EDT START DATE/TIME: 07/08/2023 18:08 EDT FREE TEXT SOURCE: KAYY MIRAMONTES PA-C, PA-C, KAYY Buenrostro FINAL REPORTS Final Report [] Verified Date/Time: 07/10/2023 08:44 EDT 1,000 cfu/ml Mixed skin contaminants Performing Locations R1: This test was performed at: [facility], [address] [place] [address], [address] , [place], [facility] Comment on above: Performed By: #### 2 [id number] ####[facility] [address] [place] [address] Pre-Certification Formon Pre-Certification Form [id number] .00TIFF [facility] Pre-Certification Formon Pre-Certification Form [id number]#1 .00TIFF [facility] Pre-Certification Form [id number] .00TIFF [facility] Ambulatory Visit Summaryon 0 07-08-2023 Ambulatory [...] solution) fluticasone nasal (fluticasone 0.05 mg/inh Nasal [place]) gabapentin (gabapentin 400 mg Cap) lamotrigine (lamotrigine [...] Appointments Friday 10:30 AM EDT With: Where: [facility] Friday 8:30 AM EDT With: Where: [facility] Friday 2:40 PM EDT With: KAYY MIRAMONTES PA-C Where: [facility] Pre-Certification Formon Pre-Certification Form [id number] .00TIFF [facility] Pre-Certification Formon Pre-Certification Form [id number]# 1.00TIFF [facility] Pre-Certification Form [id number]#1 .00TIFF [facility] Pre-Certification Formon Pre-Certification Form [id number] .00TIFF [facility] Pre-Certification Formon Pre-Certification Form [id number] .00TIFF [facility] Urology Office/Clinic Noteon 05-30-2023 Urology Office/Clinic [...] No rashes or suspicious lesions Assessment/Plan Dr. Gaston pt 1. Mixed incontinence (N39.46: Mixed incontinence) [...] -Begin Tolterodine ER 4mg. Rx sent to [facility]. Monitor for SEs. -Will discuss case with Dr. Gaston to determine if cysto is required prior [...] E&M of Est. Patient Moderate 30-39 Min 24186 2. OAB (overactive bladder) (N32.81: Overactive bladder) see #1 Orders: tolterodine, 4 mg = 1 cap(s), Oral, Daily, X 30 day(s), # 30 cap(s), Refills(s) 11, Pharmacy: [facility]/pharmacy #[id number], 173, cm, 05/28/23 16:07:00 EST, Height/Length Dosing, 142, kg, 05/28/23 16:07:00 EST, Weight Dosing 87111 Measure Post Void residual urine and/or bladder capacity by US- non-imaging Urnls Dip Stick Auto w/o Microscopy POC 52228 Follow-up With When Contact Information KULWINDER MOCTEZUMA, KAYY Buenrostro, URL [address] [facility] [address] [phone] Additional Instructions: sched cysto or Botox Patient Education Botulinum Toxin Bladder Injection Urinary Incontinence ILani, personally scribed for Kayy Miramontes PA-C on 05/28/2023 16:20:14. . Problem List/Past [...] Tab, Oral, BID fluticasone 0.05 mg/inh Nasal [place], Nasal, Daily gabapentin 400 mg Cap, Oral, [...] (Rash) aspir (more content not included)... Normal [facility] Comment on above: Result Comment: Elec tronically Signed By: KAYY MIRAMONTES PA-C\.br\Date and Time Signed: 05/30/23 09:21 EST\.br\Electronically Co-Signed By: Lani Hendrickson\.br\Date and Time Co-Signed: 05/28/23 16:20 EST Ambulatory Visit Summaryon 0 05-28-2023 Ambulatory Visit Summary SHAILESH BLAKE :1970 Visit Date:05/28/2023 Ambulatory Visit Instructions Your Diagnosis Mixed incontinence Your Care Team Attending Physician - KAYY MIRAMONTES PA-C Primary Care Physician - Dioni Flores MD. This Is Your Medications List albuterol (Albuterol (Eqv-ProAir HFA)) benztropine (benztropine 0.5 mg oral tablet) brexpiprazole (Rexulti 4 mg oral tablet) busPIRone (busPIRone 10 mg Tab) erenumab (Aimovig SureClick 70 mg/mL subcutaneous solution) fluticasone nasal (fluticasone 0.05 mg/inh Nasal [place]) gabapentin (gabapentin 400 mg Cap) lamotrigine (lamotrigine [...] Schedule the Following Appointments Follow Up with KULWINDER MOCTEZUMA, ALMA NAVARRETE When: Where: [address] [place] [address] [phone] Medications What How Much When Instructions Unchanged [...] fluticasone nasal (fluticasone 0.05 mg/ inh Nasal [place]) Nasal Inhalation Every day Unchanged gabapentin (gabapentin [...] including vitamins, herbs, eye drops, creams, and pixt-wly-niduzkb medicines. ? Any problems you or family [...] your health (more content not included)... Normal [facility] Patient Educationon 05-28-19 24 Patient Education [...] including vitamins, herbs, eye drops, creams, and fdpx-axn-unonszl medicines. ? Any problems you or family [...] tells you to take them. ? Taking cxlt-crq-idjjtep medicines, vitamins, herbs, and supplements. General instructions [...] these instructions at home: Medicines ? Take smpj-ool-tltybtp and prescription medicines only as told by [...] health ca (more content not included)... Normal [facility] XR lumbar spine AP/LAT/FLX/E XTon 05-19-2023 XR lumbar spine AP/LAT/FLX/EXT [facility] [place] [address] [place] [address] XRay Report Signed Patient: Shailesh Blake MR#: [id number] : 1970 Acct:[id number] Age/Sex: 52 / F ADM Date: 05/19/23 Loc: XD Room: Type: [facility] Attending Dr: Asif Mejia MD Copies to: Asif Mejia MD Ordering Provider: Asif Mejia MD Date of Service: 05/19/23 XR/XR lumbar [...] Ronan Henry M.D.05/19/2023 6:03 PM Dictation Location: [place] [address] Transcribed By: [facility] 05/19/231802 Dictated By: Ronan Henry II, MD 05/19/23 1800 Signed By: 05/19/231802 Normal [facility] XR hip LT min 2V(w/wo pelvis )*on 04-09-2023 XR hip LT min 2V(w/wo pelvis)* [facility] [employer] Other XR hip LT min 2V(w/wo pelvis)* [facility] [address] [place] [employer] Other XR hip LT min 2V(w/wo pelvis)* [address] [facility] [employer] Other XR hip LT min 2V(w/wo pelvis)* [place] [address] [employer] Other XR hip LT min 2V(w/wo pelvis)* XRay Report [employer] Other XR hip LT min 2V(w/wo pelvis)* Signed [employer] Other XR hip LT min 2V(w/wo pelvis)* Patient: Shailesh Blake MR#: [id number] [employer] Other XR hip LT min 2V(w/wo pelvis)* : 1970 Acct:[id number] [employer] Other XR hip LT min 2V(w/wo pelvis)* Age/Sex: 52 / F ADM Date: 04/09/23 [employer] Other XR hip LT min 2V(w/wo pelvis)* Loc: XD Room: Type: [facility] [employer] Other XR hip LT min 2V(w/wo pelvis)* Attending Dr: Destini Kilgore NP [employer] Other XR hip LT min 2V(w/wo pelvis)* Copies to: Destini Kilgore NP [employer] Other XR hip LT min 2V(w/wo pelvis)* Ordering Provider: Destini Kilgore NP [employer] Other XR hip LT min 2V(w/wo pelvis)* Date of Service: 04/09/23 [employer] Other XR hip LT min 2V(w/wo pelvis)* XR/XR hip LT min 2V(w/wo pelvis)*: Left hip pain [employer] Other XR hip LT min 2V(w/wo pelvis)* Left hip 2 views. [employer] Other XR hip LT min 2V(w/wo pelvis)* Reason for exam: Left hip pain radiates into the joint and down into the knee for 3 days. [employer] Other XR hip LT min 2V(w/wo pelvis)* COMPARISON: None. [employer] Other XR hip LT min 2V(w/wo pelvis)* FINDINGS: Mild degenerative changes of the left hip without acute bony process. [employer] Other XR hip LT min 2V(w/wo pelvis)* XR/XR hip LT min 2V(w/wo pelvis)* [employer] Other XR hip LT min 2V(w/wo pelvis)* IMPRESSION: Mild degenerative changes of the left hip without acute bony process. [employer] Other XR hip LT min 2V(w/wo pelvis)* Impression dictated by: Memo Blanchard Jr., DPromiseOPromise04/09/2023 3:57 PM [employer] Other XR hip LT min 2V(w/wo pelvis)* Dictation Location: [place] [address] [employer] Other XR hip LT min 2V(w/wo pelvis)* Transcribed By: [facility] 04/09/23 [facility] [employer] Other XR hip LT min 2V(w/wo pelvis)* Dictated By: Memo Blanchard Jr DO 04/09/23 [facility] [employer] Other XR hip LT min 2V(w/wo pelvis)* Signed By: [employer] Other XR hip LT min 2V(w/wo pelvis)* 04/09/23 4239 [employer] Other US PELVIS AND TRANSVAGon US PELVIS AND [...] the endometrial cavity. Electronically authenticated by: JACINTA GUTIERREZ Date: 2022-08-27 07:34 Normal [facility] XR DEXA BONE DENSITYon 08-26 XR DEXA [...] Low Fracture Risk Electronically authenticated by: JACINTA GUTIERREZ Date: 2022-08-26 16:16 [facility] [facility] ACOG PANEL 2: 29 to 64on 08-10-2022 . . Normal [facility] Comment on above: Result Comment: Perf ormed at: WB Performed By: #### [id number] #### [facility] [address] [place] [address] Dr. Beth Alanis Age Gdln ACOG Testing 30-65 Normal [facility] Comment on above: Performed By: #### 4 [id number] #### [facility] [address] [address] [address] Beth Alanis DIAGNOSIS: Comment Normal [facility] Comment on above: Result Comment: NEGA TIVE FOR INTRAEPITHELIAL LESION OR MALIGNANCY. Performed at: WB Performed By: #### [id number] #### [facility] [address] [place] [address] Dr. Beth Alanis HPV Aptima Negative Normal Negative [facility] Comment on above: Result Comment: This nucleic acid amplification test detects fourteen high-risk HPV types (16,18,31,33,35,39,45,51,52,56,58,59,66,68) without differentiation. Performed at: =G Performed By: #### [id number] #### [facility] [address] [place] [address] Dr. Beth Alanis HPV Genotype Reflex Comment Normal [facility] Comment on above: Result Comment: Crit eria not met, HPV Genotype not performed. Performed at: WB Performed By: #### [id number] #### [facility] [address] [place] [address] Dr. Beth Alanis Methodology: Comment Normal [facility] Comment on above: Result Comment: This liquid based ThinPrep(R) pap test was screened with the use of an image guided system. Performed at: WB Performed By: #### [id number] #### [facility] [address] [place] [address] Dr. Beth Alanis Note: Comment Normal [facility] Comment on above: Result Comment: The Pap smear is a screening test designed to aid in the detection of premalignant and malignant conditions of the uterine cervix. It is not a diagnostic procedure and should not be used as the sole means of detecting cervical cancer. Both false-positive and false-negative reports do occur. . Performed at: WB Performed By: #### [id number] #### [facility] [address] [address] [address] Beth Alanis Performed by: Comment Normal [facility] Comment on above: Result Comment: Evelyn Ayala, Director Career (ASCP) Performed at: WB Performed By: #### 4 [id number] #### [facility] [address] [address] [address] Beth Alanis Specimen adequacy: Comment Normal [facility] Comment on above: Result Comment: Sati sfactory for evaluation. Endocervical and/or squamous metaplastic cells (endocervical component) are present. Performed at: WB Performed By: #### 4 [id number] #### [facility] [address] [place] [address] Dr. Beth Alanis Covid-19 PCR ([facility])on 06-26 SARS-CoV-2 (COVID-19) RNA ANITA+probe Ql (Unsp spec) Not detected Normal NOT DETECTED [facility] Comment on above: Result Comment: This test is not yet approved or cleared by the [place] FDA. When there are no FDA-approved or cleared tests available, and other criteria are met, FDA can make tests available under an emergency access mechanism called an Emergency Use Authorization (EUA). The EUA for this test is supported by the [place] of Health and Human Service's (HHS's) declaration [...] consistent with SARS-CoV-2. Performed By: #### B INTERNET SALES REPRESENTATIVE, BMP, HSTROPN #### [facility] [address] [place] [address] Dr. Beth Alanis INFLUENZA A AND B AGon 06-26 INFLUANEGH SEE BELOW Normal [facility] Comment on above: Result Comment: Nega tive for Flu A protein angiten. Infection due to Flu A cannot be ruled out. Flu A angiten in the sample may be below the detection limit of the test. Performed By: #### I NFLUAB #### [facility] [address] [place] [address] Dr. Beth Alanis INFLUBNEGH SEE BELOW Normal [facility] Comment on above: Result Comment: Nega tive for Flu B protein antigen. Infection due to Flu B cannot be ruled out. Flu B antigen in the sample may be below the detection limit of the test. Performed By: #### I NFLUAB #### [facility] [address] [place] [address] Dr. Beth Alanis INFLUENZA A AG Negative Normal NEGATIVE SEE COMMENT [facility] Comment on above: Performed By: #### I NFLUAB #### [facility] [address] [place] [address] Dr. Beth Alanis INFLUENZA B AG Negative Normal NEGATIVE SEE COMMENT [facility] Comment on above: Performed By: #### I NFLUAB #### [facility] [address] [place] [address] Dr. Beth Alanis SYMPTOMATIC COVID-19 ANTIGEN on 07-14-2022 EUA Statement SEE BELOW Normal [facility] Comment on above: Result Comment: This [...] is revoked sooner. Performed By: #### B INTERNET SALES REPRESENTATIVE, BMP, HSTROPN #### [facility] [address] [place] [address] Dr. Beth Alanis SARS-CoV-2 (COVID-19) RNA ANITA+probe Ql (Unsp spec) Negative Normal NEGATIVE [facility] Comment on above: Performed By: #### B INTERNET SALES REPRESENTATIVE, BMP, HSTROPN #### [facility] [address] [address] [address] Beth Alanis XR CHEST 1 Von 07-14-2022 XR CHEST 1 V EXAM: Chest x-ray HISTORY: . COUGH . COMPARISON: 10/23/2021 TECHNIQUE: Single view of the chest. FINDINGS: Heart and vascularity are unremarkable. Lungs are free of focal infiltrates. Grossly no bony abnormality is appreciated. Impression: No acute heart or lung disease identified. Electronically authenticated by: MELLISSA PRIEST Date: 2022-07-14 11:13 Normal [facility] VAGINITIS/VAGINOSIS DNA PROB Pablo 05-22-2022 Rosie species Negative Normal Negative [facility] Comment on above: Performed By: #### V AGINT #### [facility] [address] [place] [address] Dr. Beth Alanis Gardnerella vaginalis Negative Normal Negative [facility] Comment on above: Performed By: #### V AGINT #### [facility] [address] [place] [address] Dr. Beth Alanis Trichomonas vaginalis Negative Normal Negative [facility] Comment on above: Performed By: #### V AGINT #### [facility] [address] [place] [address] Dr. Beth Alanis LIPID PROFILEon 03-18-2022 CHOL-HDL RATIO NORM SEE BELOW Normal [facility] Comment on above: Result Comment: 3.3 - 4.4 LOW RISK 4.4 - 7.1 AVERAGE RISK 7.1 - 11.0 MODERATE RISK >11.0 HIGH RISK Performed By: #### 4 [id number] #### [facility] [address] [place] [address] Dr. Beth Alanis Cholesterol [Mass/Vol] 183 mg/dL Normal <=200 [facility] Comment on above: Performed By: #### 4 [id number] #### [facility] [address] [address] [address] Beth Alanis Cholesterol in HDL [Mass/Vol] 56 mg/dL Normal 40-60 [facility] Comment on above: Performed By: #### 4 [id number] #### [facility] [address] [address] [address] Beth Alanis Cholesterol in LDL [Mass/Vol] 106.8 mg/dL Normal [facility] Comment on above: Performed By: #### 4 [id number] #### [facility] [address] [address] [address] Beth Alanis Cholesterol.total/C holesterol in HDL [Mass ratio] 3.3 {ratio} Normal [facility] Comment on above: Performed By: #### 4 [id number] #### [facility] [address] [place] [address] Dr. Beth Alanis HDL NORMAL > or = 60 mg/dl - LO W CARDIOVASCULAR RISK <40 mg/dl - HIGH CARDIOVASCULAR RISK Normal [facility] Comment on above: Performed By: #### 4 [id number] #### [facility] [address] [address] [address] Beth Alanis LDL CALC NORMAL SEE BELOW Normal [facility] Comment on above: Result Comment: <100 mg/dl OPTIMAL 100 - 129 mg/dl NEAR OR ABOVE OPTIMAL 130 - 159 mg/dl BORDERLINE HIGH 160 - 189 mg/dl HIGH >190 mg/dl VERY HIGH Performed By: #### 4 [id number] #### [facility] [address] [address] [address] Beth Alanis Triglyceride [Mass/Vol] 101 mg/dL Normal <=150 [facility] Comment on above: Performed By: #### 4 [id number] #### [facility] [address] [place] [address] Dr. Beth Alanis VLDL CALC 20.2 mg/dL Normal [facility] Comment on above: Performed By: #### 4 [id number] #### [facility] [address] [address] [address] Beth Alanis PROF 14(COMP METB)on 022 Albumin [Mass/Vol] 3.8 g/dL Normal 3.4-5.0 [facility] Comment on above: Performed By: #### 4 [id number] #### [facility] [address] [place] [address] Dr. Beth Alanis Albumin/Globulin [Mass ratio] 0.8 {ratio} Normal [facility] Comment on above: Performed By: #### 4 [id number] #### [facility] [address] [place] [address] Dr. Beth Alanis ALP [Catalytic activity/Vol] 108 U/L Normal 46-116 [facility] Comment on above: Performed By: #### 4 [id number] #### [facility] [address] [place] [address] Dr. Beth Alanis ALT [Catalytic activity/Vol] 28 U/L Normal 14-59 [facility] Comment on above: Performed By: #### 4 [id number] #### [facility] [address] [place] [address] Dr. Beth Alanis Anion gap [Moles/Vol] 10.3 mmol/L Normal [facility] Comment on above: Performed By: #### 4 [id number] #### [facility] [address] [place] [address] Dr. Beth Alanis AST [Catalytic activity/Vol] 18 U/L Normal 15-37 [facility] Comment on above: Performed By: #### 4 [id number] #### [facility] [address] [place] [address] Dr. Beth Alanis Bilirubin [Mass/Vol] 0.7 mg/dL Normal 0.2-1.0 [facility] Comment on above: Performed By: #### 4 [id number] #### [facility] [address] [place] [address] Dr. Beth Alanis Calcium [Mass/Vol] 9.5 mg/dL Normal 8.5-10.1 [facility] Comment on above: Performed By: #### 4 [id number] #### [facility] [address] [place] [address] Dr. Beth Alanis Chloride [Moles/Vol] 102 mmol/L Normal 98-107 [facility] Comment on above: Performed By: #### 4 [id number] #### [facility] [address] [address] [address] Beth Alanis CO2 [Moles/Vol] 27.6 mmol/L Normal 21.0-32.0 [facility] Comment on above: Performed By: #### 4 [id number] #### [facility] [address] [address] [address] Beth Alanis Creatinine [Mass/Vol] 0.93 mg/dL Normal 0.55-1.02 [facility] Comment on above: Performed By: #### 4 [id number] #### [facility] [address] [place] [address] Dr. Beth Alanis EGFR-AF HONDURAN >60 Normal >=60 [facility] Comment on above: Performed By: #### 4 [id number] #### [facility] [address] [place] [address] Dr. Beth Alanis EGFR-NON AF HONDURAN >60 Normal >=60 [facility] Comment on above: Performed By: #### 4 [id number] #### [facility] [address] [place] [address] Dr. Beth Alanis Globulin (S) [Mass/Vol] 5.0 g/dL Normal [facility] Comment on above: Performed By: #### 4 [id number] #### [facility] [address] [place] [address] Dr. Beth Alanis Glucose [Mass/Vol] 108 mg/dL Critically high 74-106 [facility] Comment on above: Performed By: #### 4 [id number] #### [facility] [address] [address] [address] Beth Alanis Potassium [Moles/Vol] 3.9 mmol/L Normal 3.5-5.1 [facility] Comment on above: Performed By: #### 4 [id number] #### [facility] [address] [place] [address] Dr. Beth Alanis Protein [Mass/Vol] 8.8 g/dL Critically high 6.4-8.2 [facility] Comment on above: Performed By: #### 4 [id number] #### [facility] [address] [address] [address] Beth Alanis Sodium [Moles/Vol] 136 mmol/L Normal 136-145 [facility] Comment on above: Performed By: #### 4 [id number] #### [facility] [address] [address] [address] Beth Alanis Urea nitrogen [Mass/Vol] 17.0 mg/dL Normal 7.0-18.0 [facility] Comment on above: Performed By: #### 4 [id number] #### [facility] [address] [address] [address] Beth Alanis Urea nitrogen/Creatinine [Mass ratio] 18.3 mg/mg Normal [facility] Comment on above: Performed By: #### 4 [id number] #### [facility] [address] [place] [address] Dr. Beth Alanis MG MAMM SCREEN 3D LUCIDNA CADon 11-22-2021 MG MAMM SCREEN 3D LUCINDA CAD Patient: SHAILESH BLKAE Exam Date: 11/22/2021 : 1970 Gender:F Ordering : DR MARTI JEREZ . Admission #: [id number] Family : Order #: [id number] CLICK HERE TO VIEW EXAM RADIOLOGY REPORT [...] Treatments None Family Cancers None LOCATION: [facility] BREAST COMPOSITION: Heterogeneously dense,which may obscure small [...] LUMP SHOULD BE BIOPSIED. Dictated by: Jacinta Gutierrez M.D. on 11/22/2021 at 15:45 Approved by: Jacinta Gutierrez M.D. on 11/22/2021 at 15:52 Normal [facility] GLUCOSE BLOODon 11-21-2021 Glucose [Mass/Vol] 110 mg/dL Critically high 74-106 [facility] Comment on above: Performed By: #### [id number] #### [facility] [address] [address] [address] Beth Alanis LIPID PROFILEon 11-21-2021 CHOL-HDL RATIO NORM SEE BELOW Normal [facility] Comment on above: Result Comment: 3.3 - 4.4 LOW RISK 4.4 - 7.1 AVERAGE RISK 7.1 - 11.0 MODERATE RISK >11.0 HIGH RISK Performed By: #### [id number] #### [facility] [address] [address] [address] Beth Alanis Cholesterol [Mass/Vol] 258 mg/dL Critically high <=200 [facility] Comment on above: Performed By: #### 4 [id number] #### [facility] [address] [address] [address] Beth Alanis Cholesterol in HDL [Mass/Vol] 34 mg/dL Critically low 40-60 [facility] Comment on above: Performed By: #### 4 [id number] #### [facility] [address] [address] [address] Beth Alanis Cholesterol in LDL [Mass/Vol] 161.4 mg/dL Normal [facility] Comment on above: Performed By: #### 4 [id number] #### [facility] [address] [address] [address] Beth Alanis Cholesterol.total/C holesterol in HDL [Mass ratio] 7.6 {ratio} Normal [facility] Comment on above: Performed By: #### 4 [id number] #### [facility] [address] [address] [address] Beth Alanis HDL NORMAL > or = 60 mg/dl - LO W CARDIOVASCULAR RISK <40 mg/dl - HIGH CARDIOVASCULAR RISK Normal [facility] Comment on above: Performed By: #### 4 [id number] #### [facility] [address] [place] [address] Dr. Beth Alanis LDL CALC NORMAL SEE BELOW Normal [facility] Comment on above: Result Comment: <100 mg/dl OPTIMAL 100 - 129 mg/dl NEAR OR ABOVE OPTIMAL 130 - 159 mg/dl BORDERLINE HIGH 160 - 189 mg/dl HIGH >190 mg/dl VERY HIGH Performed By: #### 4 [id number] #### [facility] [address] [place] [address] Dr. Beth Alanis Triglyceride [Mass/Vol] 313 mg/dL Critically high <=150 [facility] Comment on above: Performed By: #### 4 [id number] #### [facility] [address] [place] [address] Dr. Beth Alanis VLDL CALC 62.6 mg/dL Normal [facility] Comment on above: Performed By: #### [id number] #### [facility] [address] [place] [address] Dr. Beth Alanis BNPon 10-23-2021 Natriuretic peptide B (Bld) [Mass/Vol] 15.0 pg/mL Normal <=900.0 [facility] Comment on above: Performed By: #### B INTERNET SALES REPRESENTATIVE, BMP, HSTROPN #### [facility] [address] [place] [address] Dr. Beth Alanis CBC AUTO DIFFon 10-23-2021 BASO # 0.1 103/ul Normal 0.0-0.1 [facility] Comment on above: Performed By: #### B INTERNET SALES REPRESENTATIVE, BMP, HSTROPN #### [facility] [address] [place] [address] Dr. Beth Alanis Basophils/100 WBC (Bld) 0.6 % Normal 0.2-2.0 [facility] Comment on above: Performed By: #### B INTERNET SALES REPRESENTATIVE, BMP, HSTROPN #### [facility] [address] [place] [address] Dr. Beth Alanis EO # 0.1 103/ul Normal 0.0-0.7 [facility] Comment on above: Performed By: #### B INTERNET SALES REPRESENTATIVE, BMP, HSTROPN #### [facility] [address] [place] [address] Dr. Beth Alanis Eosinophils/100 WBC (Bld) 1.8 % Normal 0.9-7.0 [facility] Comment on above: Performed By: #### B INTERNET SALES REPRESENTATIVE, BMP, HSTROPN #### [facility] [address] [place] [address] Dr. Beth Alanis Erythrocyte distribution width (RBC) [Ratio] 13.6 % Normal 11.0-15.0 [facility] Comment on above: Performed By: #### B INTERNET SALES REPRESENTATIVE, BMP, HSTROPN #### [facility] [address] [place] [address] Dr. Beth Alanis Hematocrit (Bld) [Volume fraction] 46.6 % Normal 36.0-48.0 [facility] Comment on above: Performed By: #### B INTERNET SALES REPRESENTATIVE, BMP, HSTROPN #### [facility] [address] [place] [address] Dr. Beth Alanis Hemoglobin (Bld) [Mass/Vol] 15.1 g/dL Normal 12.0-16.0 [facility] Comment on above: Performed By: #### B INTERNET SALES REPRESENTATIVE, BMP, HSTROPN #### [facility] [address] [place] [address] Dr. Bteh Alanis IG # 0.02 10e3/ul Normal 0.00-0.03 [facility] Comment on above: Performed By: #### B INTERNET SALES REPRESENTATIVE, BMP, HSTROPN #### [facility] [address] [place] [address] Dr. Beth Alanis IG % 0.3 % Normal 0.0-0.5 [facility] Comment on above: Performed By: #### B INTERNET SALES REPRESENTATIVE, BMP, HSTROPN #### [facility] [address] [place] [address] Dr. Beth Alanis LYMPH # 1.9 103/ul Normal 1.2-3.8 [facility] Comment on above: Performed By: #### B INTERNET SALES REPRESENTATIVE, BMP, HSTROPN #### [facility] [address] [place] [address] Dr. Beth Alanis Lymphocytes/100 WBC (Bld) 23.9 % Normal 20.5-60.0 [facility] Comment on above: Performed By: #### B INTERNET SALES REPRESENTATIVE, BMP, HSTROPN #### [facility] [address] [place] [address] Dr. Beth Alanis MANUAL DIFF REQ NO Normal [facility] Comment on above: Performed By: #### B INTERNET SALES REPRESENTATIVE, BMP, HSTROPN #### [facility] [address] [place] [address] Dr. Beth Alanis MCH (RBC) [Entitic mass] 29.8 pg Normal 26.7-34.0 [facility] Comment on above: Performed By: #### B INTERNET SALES REPRESENTATIVE, BMP, HSTROPN #### [facility] [address] [place] [address] Dr. Beth Alanis MCHC (RBC) [Mass/Vol] 32.4 g/dL Normal 29.9-35.2 [facility] Comment on above: Performed By: #### B INTERNET SALES REPRESENTATIVE, BMP, HSTROPN #### [facility] [address] [place] [address] Dr. Beth Alanis MCV (RBC) [Entitic vol] 91.9 fL Normal 81.0-99.0 [facility] Comment on above: Performed By: #### B INTERNET SALES REPRESENTATIVE, BMP, HSTROPN #### [facility] [address] [place] [address] Dr. Beth Alanis MONO # 0.6 103/ul Normal 0.3-0.8 [facility] Comment on above: Performed By: #### B INTERNET SALES REPRESENTATIVE, BMP, HSTROPN #### [facility] [address] [place] [address] Dr. Beth Alanis Monocytes/100 WBC (Bld) 7.7 % Normal 1.7-12.0 [facility] Comment on above: Performed By: #### B INTERNET SALES REPRESENTATIVE, BMP, HSTROPN #### [facility] [address] [place] [address] Dr. Beth Alanis NEUT # 5.1 103/ul Normal 1.4-6.5 [facility] Comment on above: Performed By: #### B INTERNET SALES REPRESENTATIVE, BMP, HSTROPN #### [facility] [address] [place] [address] Dr. Beth Alanis Neutrophils/100 WBC (Bld) 65.7 % Normal 43.0-75.0 [facility] Comment on above: Performed By: #### B INTERNET SALES REPRESENTATIVE, BMP, HSTROPN #### [facility] [address] [place] [address] Dr. Beth Alanis Platelet mean volume (Bld) [Entitic vol] 9.6 fL Normal 9.5-13.5 [facility] Comment on above: Performed By: #### B INTERNET SALES REPRESENTATIVE, BMP, HSTROPN #### [facility] [address] [place] [address] Dr. Beth Alanis PLT 324 103/ul Normal 150-450 [facility] Comment on above: Performed By: #### B INTERNET SALES REPRESENTATIVE, BMP, HSTROPN #### [facility] [address] [place] [address] Dr. Beth Alanis RBC 5.07 106/ul Normal 4.20-5.40 [facility] Comment on above: Performed By: #### B INTERNET SALES REPRESENTATIVE, BMP, HSTROPN #### [facility] [address] [place] [address] Dr. Beth Alanis WBC 7.8 103/ul Normal 4.0-11.0 [facility] Comment on above: Performed By: #### B INTERNET SALES REPRESENTATIVE, BMP, HSTROPN #### [facility] [address] [place] [address] Dr. Beth Alanis PROF CHEM 8 (BAS METB)on Anion gap [Moles/Vol] 6.7 mmol/L Normal [facility] Comment on above: Performed By: #### B INTERNET SALES REPRESENTATIVE, BMP, HSTROPN #### [facility] [address] [place] [address] Dr. Beth Alanis Calcium [Mass/Vol] 9.3 mg/dL Normal 8.5-10.1 [facility] Comment on above: Performed By: #### B INTERNET SALES REPRESENTATIVE, BMP, HSTROPN #### [facility] [address] [address] [address] Beth Alanis Chloride [Moles/Vol] 104 mmol/L Normal 98-107 [facility] Comment on above: Performed By: #### B INTERNET SALES REPRESENTATIVE, BMP, HSTROPN #### [facility] [address] [address] [address] Beth Alanis CO2 [Moles/Vol] 31.3 mmol/L Normal 21.0-32.[address] [facility] Comment on above: Performed By: #### B INTERNET SALES REPRESENTATIVE, BMP, HSTROPN #### [facility] [address] [place] [address] Dr. Beth Alanis Creatinine [Mass/Vol] 0.98 mg/dL Normal 0.55-1.02 [facility] Comment on above: Performed By: #### B INTERNET SALES REPRESENTATIVE, BMP, HSTROPN #### [facility] [address] [place] [address] Dr. Beth Alanis EGFR-AF HONDURAN >60 Normal >=[address] [facility] Comment on above: Performed By: #### B INTERNET SALES REPRESENTATIVE, BMP, HSTROPN #### [facility] [address] [place] [address] Dr. Beth Alanis EGFR-NON AF HONDURAN =60 Normal >=60 [facility] Comment on above: Performed By: #### B INTERNET SALES REPRESENTATIVE, BMP, HSTROPN #### [facility] [address] [place] [address] Dr. Beth Alanis Glucose [Mass/Vol] 104 mg/dL Normal 74-106 [facility] Comment on above: Performed By: #### B INTERNET SALES REPRESENTATIVE, BMP, HSTROPN #### [facility] [address] [place] [address] Dr. Beth Alanis Potassium [Moles/Vol] 4.0 mmol/L Normal 3.5-5.1 [facility] Comment on above: Performed By: #### B INTERNET SALES REPRESENTATIVE, BMP, HSTROPN #### [facility] [address] [address] [address] Beth Alanis Sodium [Moles/Vol] 138 mmol/L Normal 136-145 [facility] Comment on above: Performed By: #### B INTERNET SALES REPRESENTATIVE, BMP, HSTROPN #### [facility] [address] [address] [address] Beth Alanis Urea nitrogen [Mass/Vol] 12.0 mg/dL Normal 7.0-18.0 [facility] Comment on above: Performed By: #### B INTERNET SALES REPRESENTATIVE, BMP, HSTROPN #### [facility] [address] [address] [address] Beth Alanis Urea nitrogen/Creatinine [Mass ratio] 12.2 mg/mg Normal [facility] Comment on above: Performed By: #### B INTERNET SALES REPRESENTATIVE, BMP, HSTROPN #### [facility] [address] [address] [address] Beth Alanis TROPONIN, HIGH SENSITIVITYon 10-23-2021 HSTROP 5.6 pg/mL Normal 4.0-51.3 [facility] Comment on above: Result Comment: CUT- OFF POINTS HAVE BEEN ESTABLISHED BASED ON THE FOURTH UNIVERSAL DEFINITIONS OF MYOCARDIAL INFARCTION. THE UPPER REFERENCE LIMIT (URL) OF TROPONIN, DEFINED THE 99TH PERCENTILE OF cTnI DISTRIBUTION IN A REFERENCE POPULATION, HAS BEEN CONFIRMED THE DECISION THRESHOLD FOR MA DIAGNOSIS. Performed By: #### B INTERNET SALES REPRESENTATIVE, BMP, HSTROPN #### [facility] [address] [place] [address] Dr. Beth Alanis XR CHEST 1 Von [...] by: CHELY KEITH Date: 2021-10-23 16:45 Normal [facility] INSULINon 09-05-2021 Insulin 26.0 uIU/mL Critically high 2.6-24.[address] [facility] Comment on above: Performed By: #### [id number] #### [facility] [address] [place] [address] Dr. Beth Alanis OCC BLD IMMUNO SCREENon 08-26 OCCULT BLOOD Negative Normal NEGATIVE [facility] Comment on above: Performed By: #### O BSCRN #### [facility] [address] [place] [address] Dr. Beth Alanis CBC AUTO DIFFon 09-04-2021 BASO # 0.0 103/ul Normal 0.0-0.1 [facility] Comment on above: Performed By: #### C BC #### [facility] [address] [place] [address] Dr. Beth Alanis Basophils/100 WBC (Bld) 0.4 % Normal 0.2-2.0 [facility] Comment on above: Performed By: #### C BC #### [facility] [address] [place] [address] Dr. Beth Alanis EO # 0.1 103/ul Normal 0.0-0.7 [facility] Comment on above: Performed By: #### C BC #### [facility] [address] [place] [address] Dr. Beth Alanis Eosinophils/100 WBC (Bld) 1.2 % Normal 0.9-7.0 [facility] Comment on above: Performed By: #### C BC #### [facility] [address] [place] [address] Dr. Beth Alanis Erythrocyte distribution width (RBC) [Ratio] 14.1 % Normal 11.0-15.0 [facility] Comment on above: Performed By: #### C BC #### [facility] [address] [place] [address] Dr. Beth Alanis Hematocrit (Bld) [Volume fraction] 44.1 % Normal 36.0-48.0 [facility] Comment on above: Performed By: #### C BC #### [facility] [address] [place] [address] Dr. Beth Alanis Hemoglobin (Bld) [Mass/Vol] 14.6 g/dL Normal 12.0-16.0 [facility] Comment on above: Performed By: #### C BC #### [facility] [address] [place] [address] Dr. Beth Alanis IG # 0.03 10e3/ul Normal 0.00-0.03 [facility] Comment on above: Performed By: #### C BC #### [facility] [address] [place] [address] Dr. Beth Alanis IG % 0.3 % Normal 0.0-0.5 [facility] Comment on above: Performed By: #### C BC #### [facility] [address] [place] [address] Dr. Beth Alanis LYMPH # 1.9 103/ul Normal 1.2-3.8 [facility] Comment on above: Performed By: #### C BC #### [facility] [address] [place] [address] Dr. Beth Alanis Lymphocytes/100 WBC (Bld) 17.8 % Critically low 20.5-60.0 [facility] Comment on above: Performed By: #### C BC #### [facility] [address] [place] [address] Dr. Beth Alanis MANUAL DIFF REQ NO Normal [facility] Comment on above: Performed By: #### C BC #### [facility] [address] [place] [address] Dr. Beth Alanis MCH (RBC) [Entitic mass] 30.3 pg Normal 26.7-34.0 [facility] Comment on above: Performed By: #### C BC #### [facility] [address] [place] [address] Dr. Beth Alanis MCHC (RBC) [Mass/Vol] 33.1 g/dL Normal 29.9-35.2 [facility] Comment on above: Performed By: #### C BC #### [facility] [address] [place] [address] Dr. Beth Alanis MCV (RBC) [Entitic vol] 91.5 fL Normal 81.0-99.0 [facility] Comment on above: Performed By: #### C BC #### [facility] [address] [place] [address] Dr. Beth Alanis MONO # 0.9 103/ul Critically high 0.3-0.8 [facility] Comment on above: Performed By: #### C BC #### [facility] [address] [place] [address] Dr. Beth Alanis Monocytes/100 WBC (Bld) 8.9 % Normal 1.7-12.0 [facility] Comment on above: Performed By: #### C BC #### [facility] [address] [place] [address] Dr. Beth Alanis NEUT # 7.6 103/ul Critically high 1.4-6.5 [facility] Comment on above: Performed By: #### C BC #### [facility] [address] [place] [address] Dr. Beth Alanis Neutrophils/100 WBC (Bld) 71.4 % Normal 43.0-75.0 [facility] Comment on above: Performed By: #### C BC #### [facility] [address] [place] [address] Dr. Beth Alanis Platelet mean volume (Bld) [Entitic vol] 9.7 fL Normal 9.5-13.5 [facility] Comment on above: Performed By: #### C BC #### [facility] [address] [place] [address] Dr. Beth Alanis PLT 377 103/ul Normal 150-450 [facility] Comment on above: Performed By: #### C BC #### [facility] [address] [place] [address] Dr. Beth Alanis RBC 4.82 106/ul Normal 4.20-5.40 [facility] Comment on above: Performed By: #### C BC #### [facility] [address] [place] [address] Dr. Beth Alanis WBC 10.6 103/ul Normal 4.0-11.0 [facility] Comment on above: Performed By: #### C BC #### [facility] [address] [address] [address] Beth Alanis FREE THYROXINE INDEX T7on FTI 3.20 Normal 1.30-4.50 [facility] Comment on above: Performed By: #### C MP, T7, LIPID, TSH #### [facility] [address] [place] [address] Dr. Beth Alanis T3U 33.0 % Normal 30.0-39.0 [facility] Comment on above: Performed By: #### C MP, T7, LIPID, TSH #### [facility] [address] [place] [address] Dr. Beth Alanis T4 [Mass/Vol] 9.70 ug/dL Normal 4.80-13.90 [facility] Comment on above: Performed By: #### C MP, T7, LIPID, TSH #### [facility] [address] [address] [address] Beth Alanis GLYCOHEMOGLOBIN A1Con 2021 ADA RECOMMENDATION SEE BELOW Normal [facility] Comment on above: Result Comment: ADA RECOMMENDED LIMIT 4.0 - 6.0 ADA THERAPEUTIC TARGET < 7.0 ACTION SUGGESTED > 7.0 Performed By: #### 4 [id number] #### [facility] [address] [place] [address] Dr. Beth Alanis Glucose [Mass/Vol] 114 mg/dL Normal [facility] Comment on above: Performed By: #### 4 [id number] #### [facility] [address] [place] [address] Dr. Beth Alanis HbA1c (Bld) [Mass fraction] 5.6 % Normal 4.5-6.2 [facility] Comment on above: Performed By: #### 4 [id number] #### [facility] [address] [place] [address] Dr. Beth Alanis IRONon 09-04-2021 Iron [Mass/Vol] 73.0 ug/dL Normal 50.0-170.0 [facility] Comment on above: Performed By: #### 4 [id number] #### [facility] [address] [address] [address] Beth Alanis LIPID PROFILEon 09-04-2021 CHOL-HDL RATIO NORM SEE BELOW Normal [facility] Comment on above: Result Comment: 3.3 - 4.4 LOW RISK 4.4 - 7.1 AVERAGE RISK 7.1 - 11.0 MODERATE RISK >11.0 HIGH RISK Performed By: #### 4 [id number] #### [facility] [address] [address] [address] Beth Alanis Cholesterol [Mass/Vol] 229 mg/dL Critically high <=200 [facility] Comment on above: Performed By: #### 4 [id number] #### [facility] [address] [address] [address] Beth Alanis Cholesterol in HDL [Mass/Vol] 49 mg/dL Normal 40-60 [facility] Comment on above: Performed By: #### 4 [id number] #### [facility] [address] [address] [address] Beth Alanis Cholesterol in LDL [Mass/Vol] 160.2 mg/dL Normal [facility] Comment on above: Performed By: #### 4 [id number] #### [facility] [address] [address] [address] Beth Alanis Cholesterol.total/C holesterol in HDL [Mass ratio] 4.7 {ratio} Normal [facility] Comment on above: Performed By: #### 4 [id number] #### [facility] [address] [address] [address] Beth Alanis HDL NORMAL > or = 60 mg/dl - LO W CARDIOVASCULAR RISK <40 mg/dl - HIGH CARDIOVASCULAR RISK Normal [facility] Comment on above: Performed By: #### 4 [id number] #### [facility] [address] [address] [address] Beth Alanis LDL CALC NORMAL SEE BELOW Normal [facility] Comment on above: Result Comment: <100 mg/dl OPTIMAL 100 - 129 mg/dl NEAR OR ABOVE OPTIMAL 130 - 159 mg/dl BORDERLINE HIGH 160 - 189 mg/dl HIGH >190 mg/dl VERY HIGH Performed By: #### 4 [id number] #### [facility] [address] [address] [address] Beth Alanis Triglyceride [Mass/Vol] 99 mg/dL Normal <=150 [facility] Comment on above: Performed By: #### 4 [id number] #### [facility] [address] [place] [address] Dr. Beth Alanis VLDL CALC 19.8 mg/dL Normal [facility] Comment on above: Performed By: #### 4 [id number] #### [facility] [address] [place] [address] Dr. Beth Alanis PROF 14(COMP METB)on 022 Albumin [Mass/Vol] 3.6 g/dL Normal 3.4-5.0 [facility] Comment on above: Performed By: #### 4 [id number] #### [facility] [address] [place] [address] Dr. Beth Alanis Albumin/Globulin [Mass ratio] 0.8 {ratio} Normal [facility] Comment on above: Performed By: #### 4 [id number] #### [facility] [address] [place] [address] Dr. Beth Alanis ALP [Catalytic activity/Vol] 107 U/L Normal 46-116 [facility] Comment on above: Performed By: #### 4 [id number] #### [facility] [address] [place] [address] Dr. Beth Alanis ALT [Catalytic activity/Vol] 31 U/L Normal 14-59 [facility] Comment on above: Performed By: #### 4 [id number] #### [facility] [address] [address] [address] Beth Alanis Anion gap [Moles/Vol] 14.4 mmol/L Normal [facility] Comment on above: Performed By: #### 4 [id number] #### [facility] [address] [place] [address] Dr. Beth Alanis AST [Catalytic activity/Vol] 11 U/L Critically low 15-37 [facility] Comment on above: Performed By: #### 4 [id number] #### [facility] [address] [address] [address] Beth Alanis Bilirubin [Mass/Vol] 0.4 mg/dL Normal 0.2-1.0 [facility] Comment on above: Performed By: #### 4 [id number] #### [facility] [address] [place] [address] Dr. Beth Alanis Calcium [Mass/Vol] 9.0 mg/dL Normal 8.5-10.1 [facility] Comment on above: Performed By: #### 4 [id number] #### [facility] [address] [address] [address] Beth Alanis Chloride [Moles/Vol] 103 mmol/L Normal 98-107 [facility] Comment on above: Performed By: #### 4 [id number] #### [facility] [address] [place] [address] Dr. Beth Alanis CO2 [Moles/Vol] 24.7 mmol/L Normal 21.0-32.0 [facility] Comment on above: Performed By: #### 4 [id number] #### [facility] [address] [place] [address] Dr. Beth Alanis Creatinine [Mass/Vol] 0.92 mg/dL Normal 0.55-1.02 [facility] Comment on above: Performed By: #### 4 [id number] #### [facility] [address] [place] [address] Dr. Beth Alanis EGFR-AF HONDURAN >60 Normal >=[address] [facility] Comment on above: Performed By: #### 4 [id number] #### [facility] [address] [address] [address] Beth Alanis EGFR-NON AF HONDURAN >60 Normal >=60 [facility] Comment on above: Performed By: #### 4 [id number] #### [facility] [address] [place] [address] Dr. Beth Alanis Globulin (S) [Mass/Vol] 4.5 g/dL Normal [facility] Comment on above: Performed By: #### 4 [id number] #### [facility] [address] [address] [address] Beth Alanis Glucose [Mass/Vol] 100 mg/dL Normal 74-106 [facility] Comment on above: Performed By: #### 4 [id number] #### [facility] [address] [address] [address] Beth Alanis Potassium [Moles/Vol] 4.1 mmol/L Normal 3.5-5.1 [facility] Comment on above: Performed By: #### 4 [id number] #### [facility] [address] [address] [address] Beth Alanis Protein [Mass/Vol] 8.1 g/dL Normal 6.4-8.2 [facility] Comment on above: Performed By: #### 4 [id number] #### [facility] [address] [place] [address] Dr. Beth Alanis Sodium [Moles/Vol] 138 mmol/L Normal 136-145 [facility] Comment on above: Performed By: #### 4 [id number] #### [facility] [address] [address] [address] Beth Alanis Urea nitrogen [Mass/Vol] 27.0 mg/dL Critically high 7.0-18.0 [facility] Comment on above: Performed By: #### 4 [id number] #### [facility] [address] [address] [address] Beth Alanis Urea nitrogen/Creatinine [Mass ratio] 29.3 mg/mg Normal [facility] Comment on above: Performed By: #### 4 [id number] #### [facility] [address] [place] [address] Dr. Beth Alanis TSHon 09-04-2021 TSH 3.758 uIU/mL Critically high 0.358-3.740 [facility] Comment on above: Performed By: #### C MP, T7, LIPID, TSH #### [facility] [address] [address] [address] Beth Alanis TSH RANGE SEE BELOW Normal [facility] Comment on above: Result Comment: <0.3 4 UIU/ml HYPERTHYROID 0.34-5.60 UIU/ml EUTHYROID >5.60 UIU/ml HYPOTHYROID Performed By: #### C MP, T7, LIPID, TSH #### [facility] [address] [address] [address] Beth Alanis CTA HEART-CORONARY/ ARTERY B YPASS GRAFT WITH 3DPPon 04-26-2021 CTA HEART-CORONARY/ ARTERY BYPASS GRAFT WITH 3DPP [facility] Department of Radiology [address] [place] [id number] Patient Name: SHAILESH BLAKE : 1970 Sex: F Age: Race: White Pt. Location: [facility] Patient Status: D Ordered Date: 03/19/2021 8:55:00 AM Completed Date: 04/26/2021 11:45 AM Requesting Provider: MELANIA ABARCA Attending Provider: MELANIA ABRACA Report Copy To: Signs & Symptoms: R94.39 Abnormal result of other cardiovascular function study History: Order in [facility] [phone] Is patient on meds for HTN or [...] achievable Electronically signed: Corazon Carter. Transcribed by: [email or web address], User Resident: Electronically Signed by: CORAZON CARTER @ 04/30/2021 09:22 AM Normal [facility] Vital Signs Date Time Vital Sign Value Performing Clinician Facility 05-05-2024 11:09-0500 Body height 172.7 cm Cheyanne Schilling INTERNET SALES REPRESENTATIVE Work Phone: [facility] 05-05-2024 11:09-0500 Body mass index (BMI) [Ratio] 53.52 kg/m2 Cheyanne Schilling INTERNET SALES REPRESENTATIVE Work Phone: [facility] 05-05-2024 11:09-0500 Body weight 159.67 kg Cheyanne Schilling INTERNET SALES REPRESENTATIVE Work Phone: [facility] 05-05-2024 11:09-0500 Diastolic blood pressure 88 mm[Hg] Cheyanne Schilling INTERNET SALES REPRESENTATIVE Work Phone: [facility] 05-05-2024 11:09-0500 Heart rate 104 /min Cheyanne Schilling INTERNET SALES REPRESENTATIVE Work Phone: [facility] 05-05-2024 11:09-0500 SaO2% (BldA) [Mass fraction] 96 % Cheyanne Schilling INTERNET SALES REPRESENTATIVE Work Phone: [facility] 05-05-2024 11:09-0500 Systolic blood pressure 144 mm[Hg] Cheyanne Schilling INTERNET SALES REPRESENTATIVE Work Phone: [facility] 03-10-2024 12:51-0500 Body height 172.7 cm Tank Lancaster DO Work Phone: [facility] 03-10-2024 12:51-0500 Body mass index (BMI) [Ratio] 53.76 kg/m2 Tank Doner DO Work Phone: [facility] 03-10-2024 12:51-0500 Body weight 160.39 kg Tank Anisha DO Work Phone: [facility] 03-10-2024 12:51-0500 Diastolic blood pressure 88 mm[Hg] Tank Anisha DO Work Phone: [facility] 03-10-2024 12:51-0500 Heart rate 81 /min Tank Anisha DO Work Phone: [facility] 03-10-2024 12:51-0500 SaO2% (BldA) [Mass fraction] 96 % Tank Anisha DO Work Phone: [facility] 03-10-2024 12:51-0500 Systolic blood pressure 132 mm[Hg] Tank Anisha DO Work Phone: [facility] 03-04-2024 15:08-0500 Body height 172.7 cm Cheyanne Schilling INTERNET SALES REPRESENTATIVE Work Phone: [facility] 03-04-2024 15:08-0500 Body mass index (BMI) [Ratio] 53.98 kg/m2 Cheyanne Schilling INTERNET SALES REPRESENTATIVE Work Phone: [facility] [facility] 03-04-2024 15:08-0500 Body weight 161.03 kg Cheyanne Schilling INTERNET SALES REPRESENTATIVE Work Phone: [facility] 03-04-2024 15:08-0500 Diastolic blood pressure 86 mm[Hg] Cheyanne Schilling INTERNET SALES REPRESENTATIVE Work Phone: [facility] 03-04-2024 15:08-0500 Heart rate 103 /min Cheyanne Schilling INTERNET SALES REPRESENTATIVE Work Phone: [facility] 03-04-2024 15:08-0500 SaO2% (BldA) [Mass fraction] 98 % Cheyanne Schilling INTERNET SALES REPRESENTATIVE Work Phone: [facility] 03-04-2024 15:08-0500 Systolic blood pressure 132 mm[Hg] Cheyanne Schilling INTERNET SALES REPRESENTATIVE Work Phone: [facility] 02-12-2024 08:56-0400 Blood Pressure Location KAYY MIRAMONTES [facility] 02-12-2024 08:56-0400 Body temperature 98.6 [degF] KAYY MIRAMONTES [facility] 02-12-2024 08:56-0400 Diastolic blood pressure 89 mm[Hg] KAYY MIRAMONTES [facility] 02-12-2024 08:56-0400 Heart rate 75 /min KAYY MIRAMONTES [facility] 02-12-2024 08:56-0400 Respiratory rate 16 /min KAYY MIRAMONTES [facility] 02-12-2024 08:56-0400 Systolic blood pressure 133 mm[Hg] KAYY MIRAMONTES [facility] 02-11-2024 10:34-0400 Body height 172.7 cm Cheyanne Schilling INTERNET SALES REPRESENTATIVE Work Phone: [facility] 02-11-2024 10:34-0400 Body mass index (BMI) [Ratio] 53.28 kg/m2 Cheyanne Schilling INTERNET SALES REPRESENTATIVE Work Phone: [facility] 02-11-2024 10:34-0400 Body weight 158.94 kg Cheyanne Schilling INTERNET SALES REPRESENTATIVE Work Phone: [facility] 02-11-2024 10:34-0400 Diastolic blood pressure 80 mm[Hg] Cheyanne Schilling INTERNET SALES REPRESENTATIVE Work Phone: [facility] 02-11-2024 10:34-0400 Heart rate 76 /min Cheyanne Schilling INTERNET SALES REPRESENTATIVE Work Phone: [facility] 02-11-2024 10:34-0400 SaO2% (BldA) [Mass fraction] 98 % Cheyanne Schilling INTERNET SALES REPRESENTATIVE Work Phone: [facility] 02-11-2024 10:34-0400 Systolic blood pressure 138 mm[Hg] Cheyanne Schilling INTERNET SALES REPRESENTATIVE Work Phone: [facility] 01-15-2024 15:47-0400 Diastolic blood pressure 60 mm[Hg] INTERNET SALES REPRESENTATIVE-C Alyssa Maxwell Work Phone: [facility] 01-15-2024 15:47-0400 Heart rate 82 /min INTERNET SALES REPRESENTATIVE-C Alyssa Maxwell Work Phone: [facility] 01-15-2024 15:47-0400 SaO2% (BldA) [Mass fraction] 98 % INTERNET SALES REPRESENTATIVE-C Alyssa Maxwell Work Phone: [facility] 01-15-2024 15:47-0400 Systolic blood pressure 102 mm[Hg] INTERNET SALES REPRESENTATIVE-C Alyssa Maxwell Work Phone: [facility] 01-02-2024 10:32-0400 Body weight 159.21 kg INTERNET SALES REPRESENTATIVE-C Alyssa Maxwell Work Phone: [facility] 01-02-2024 10:32-0400 Diastolic blood pressure 80 mm[Hg] INTERNET SALES REPRESENTATIVE-C Alyssa Maxwell Work Phone: [facility] 01-02-2024 10:32-0400 Heart rate 81 /min INTERNET SALES REPRESENTATIVE-C Alyssa Maxwell Work Phone: [facility] 01-02-2024 10:32-0400 SaO2% (BldA) [Mass fraction] 98 % INTERNET SALES REPRESENTATIVE-C Alyssa Maxwell Work Phone: [facility] 01-02-2024 10:32-0400 Systolic blood pressure 130 mm[Hg] INTERNET SALES REPRESENTATIVE-C Alyssa Maxwell Work Phone: [facility] 12-11-2023 10:35-0400 Body weight 161.93 kg INTERNET SALES REPRESENTATIVE-C Alyssa Maxwell Work Phone: [facility] 12-11-2023 10:35-0400 Diastolic blood pressure 60 mm[Hg] INTERNET SALES REPRESENTATIVE-C Alyssa Maxwell Work Phone: [facility] 12-11-2023 10:35-0400 Heart rate 72 /min INTERNET SALES REPRESENTATIVE-C Alyssa Maxwell Work Phone: [facility] 12-11-2023 10:35-0400 SaO2% (BldA) [Mass fraction] 97 % INTERNET SALES REPRESENTATIVE-C Alyssa Maxwell Work Phone: [facility] 12-11-2023 10:35-0400 Systolic blood pressure 102 mm[Hg] INTERNET SALES REPRESENTATIVE-C Alyssa Maxwell Work Phone: [facility] 09-04-2023 09:23-0400 Body weight 157.16 kg INTERNET SALES REPRESENTATIVE-C Alyssa Maxwell Work Phone: [facility] 09-04-2023 09:23-0400 Diastolic blood pressure 70 mm[Hg] INTERNET SALES REPRESENTATIVE-C Alyssa Maxwell Work Phone: [facility] 09-04-2023 09:23-0400 Heart rate 74 /min INTERNET SALES REPRESENTATIVE-C Alyssa Maxwell Work Phone: [facility] 09-04-2023 09:23-0400 SaO2% (BldA) [Mass fraction] 98 % INTERNET SALES REPRESENTATIVE-C Alyssa Maxwell Work Phone: [facility] 09-04-2023 09:23-0400 Systolic blood pressure 102 mm[Hg] INTERNET SALES REPRESENTATIVE-C Alyssa Maxwell Work Phone: [facility] 07-29-2023 15:08-0400 Body temperature 98.42 [degF] KAYY KULWINDER [facility] 07-29-2023 15:08-0400 Diastolic blood pressure 88 mm[Hg] KAYY KULWINDER [facility] 07-29-2023 15:08-0400 Heart rate 71 /min KAYY KULWINDER [facility] 07-29-2023 15:08-0400 Respiratory rate 16 /min KAYY MIRAMONTES [facility] 07-29-2023 15:08-0400 Systolic blood pressure 138 mm[Hg] KAYY MIRAMONTES [facility] 06-04-2023 11:48-0500 Diastolic blood pressure 71 mm[Hg] INTERNET SALES REPRESENTATIVE-C Alyssa Mortensenmer Work Phone: [facility] 06-04-2023 11:48-0500 Heart rate 76 /min INTERNET SALES REPRESENTATIVE-C Alyssapollo Mortensenmer Work Phone: [facility] 06-04-2023 11:48-0500 Respiratory rate 16 /min INTERNET SALES REPRESENTATIVE-C Alyssa Mortensenmer Work Phone: [facility] 06-04-2023 11:48-0500 SaO2% (BldA) [Mass fraction] 95 % INTERNET SALES REPRESENTATIVE-C Alyssa Mortensenmer Work Phone: [facility] 06-04-2023 11:48-0500 Systolic blood pressure 126 mm[Hg] INTERNET SALES REPRESENTATIVE-C Alyssa Mortensenmer Work Phone: [facility] 06-04-2023 09:51-0500 Body height 172.72 cm INTERNET SALES REPRESENTATIVE-C Alyssa Mortensenmer Work Phone: [facility] 06-04-2023 09:51-0500 Body weight 146.51 kg INTERNET SALES REPRESENTATIVE-C Alyssa Mortensenmer Work Phone: [facility] 05-19-2023 15:45-0500 Body height 168.91 cm Asif Mejia Other [facility] 05-19-2023 15:45-0500 Body mass index (BMI) [Ratio] 54.69 kg/m2 Asif Mejia Other [employer] [facility] [employer] Other 05-19-2023 15:45-0500 Body weight 156.04 kg Asif Mejia Other [employer] Other 05-19-2023 15:45-0500 Body weight 156.03 kg MATTHIAS Princepollo Mortensenmer Work Phone: [facility] 05-19-2023 15:45-0500 SaO2% (BldA) [Mass fraction] 97 % Asif Mejia Other [employer] Other 04-09-2023 10:30-0500 Body height 168.91 cm Destini Kilgoer Other [employer] Other 04-09-2023 10:30-0500 Body mass index (BMI) [Ratio] 54.3 kg/m2 Destini Kilgore Other [employer] Other 04-09-2023 10:30-0500 Body weight 154.95 kg Destini Kilgore Other [employer] Other 04-09-2023 10:30-0500 Diastolic blood pressure 87 mm[Hg] Destini Kilgore Other [employer] Other 04-09-2023 10:30-0500 SaO2% (BldA) [Mass fraction] 97 % Destini Kilgore Other [employer] Other 04-09-2023 10:30-0500 Systolic blood pressure 123 mm[Hg] Destini Kilgore Other [employer] Other 01-23-2023 16:00-0400 Body height 168.91 cm Asif Mejia Other [employer] Other 01-23-2023 16:00-0400 Body mass index (BMI) [Ratio] 53.25 kg/m2 Asif Mejia Other [employer] Other 01-23-2023 16:00-0400 Body weight 151.96 kg Asif Mejia Other [employer] Other 01-23-2023 16:00-0400 Diastolic blood pressure 90 mm[Hg] Asif Mejia Other [employer] Other 01-23-2023 16:00-0400 SaO2% (BldA) [Mass fraction] 97 % Asif Mejia Other [employer] Other 01-23-2023 16:00-0400 Systolic blood pressure 140 mm[Hg] Asif Mejia Other [employer] Other 01-09-2023 10:30-0400 Body height 168.91 cm Destini Kilgore Other [employer] Other 01-09-2023 10:30-0400 Body mass index (BMI) [Ratio] 53.25 kg/m2 Destini Kilgore Other [employer] Other 01-09-2023 10:30-0400 Body weight 151.96 kg Destini Kilgore Other [employer] Other 01-09-2023 10:30-0400 Diastolic blood pressure 86 mm[Hg] Destini Kilgore Other [employer] Other 01-09-2023 10:30-0400 Systolic blood pressure 124 mm[Hg] Destini Kilgore Other [employer] Other 11-07-2022 13:15-0400 Body height 168.91 cm Asif Mejia Other [employer] Other 11-07-2022 13:15-0400 Body mass index (BMI) [Ratio] 55.32 kg/m2 Asif Mejia Other [employer] Other 11-07-2022 13:15-0400 Body weight 157.85 kg Asif Mejia Other [employer] Other 11-07-2022 13:15-0400 SaO2% (BldA) [Mass fraction] 95 % Asif Mejia Other [employer] Other 10-31-2022 16:00-0400 Body height 168.91 cm Asif Mejia Other [employer] Other 10-31-2022 16:00-0400 Body mass index (BMI) [Ratio] 54.62 kg/m2 Asif Mejia Other [employer] Other 10-31-2022 16:00-0400 Body weight 155.86 kg Asif Mejia Other [employer] Other 10-31-2022 16:00-0400 Diastolic blood pressure 84 mm[Hg] Asif Mejia Other [employer] Other 10-31-2022 16:00-0400 SaO2% (BldA) [Mass fraction] 97 % Asif Mejia Other [employer] Other 10-31-2022 16:00-0400 Systolic blood pressure 126 mm[Hg] Asif Mejia Other [employer] Other 08-07-2022 17:30-0400 Body height 168.91 cm Asif Mejia Other [employer] Other 08-07-2022 17:30-0400 Body mass index (BMI) [Ratio] 54.53 kg/m2 Asif Mejia Other [employer] Other 08-07-2022 17:30-0400 Body weight 155.58 kg Asif Mejia Other [employer] Other 08-07-2022 17:30-0400 Diastolic blood pressure 96 mm[Hg] Asif Mejia Other [employer] Other 08-07-2022 17:30-0400 SaO2% (BldA) [Mass fraction] 99 % Asif Mejia Other [employer] Other 08-07-2022 17:30-0400 Systolic blood pressure 142 mm[Hg] Asif eMjia Other [employer] Other 07-24-2022 10:04-0400 Diastolic blood pressure 76 mm[Hg] INTERNET SALES REPRESENTATIVE-C Alyssa Maxwell Work Phone: [facility] 07-24-2022 10:04-0400 Heart rate 74 /min INTERNET SALES REPRESENTATIVE-C Alyssa Maxwell Work Phone: [facility] 07-24-2022 10:04-0400 Respiratory rate 18 /min INTERNET SALES REPRESENTATIVE-C Alyssa Maxwell Work Phone: [facility] 07-24-2022 10:04-0400 SaO2% (BldA) [Mass fraction] 96 % INTERNET SALES REPRESENTATIVE-C Alyssa Maxwell Work Phone: [facility] 07-24-2022 10:04-0400 Systolic blood pressure 117 mm[Hg] INTERNET SALES REPRESENTATIVE-C Alyssa Maxwell Work Phone: [facility] 07-24-2022 09:23-0400 Inhaled oxygen flow rate 3 L/min INTERNET SALES REPRESENTATIVE-C Alyssa Arreola Work Phone: [facility] 07-24-2022 08:46-0400 Body height 172.72 cm INTERNET SALES REPRESENTATIVE-C Alyssa Arreola Work Phone: [facility] 07-24-2022 08:46-0400 Body weight 136.07 kg INTERNET SALES REPRESENTATIVE-C Alyssa Arreola Work Phone: [facility] 07-08-2022 15:45-0400 Body height 168.91 cm Asif Mejia Other [employer] Other 07-08-2022 15:45-0400 Body mass index (BMI) [Ratio] 56.59 kg/m2 Asif Mejia Other [employer] Other 07-08-2022 15:45-0400 Body weight 161.48 kg Asif Mejia Other [employer] Other 07-08-2022 15:45-0400 Diastolic blood pressure 80 mm[Hg] Asif Mejia Other [employer] Other 07-08-2022 15:45-0400 SaO2% (BldA) [Mass fraction] 97 % Asif Mejia Other [employer] Other 07-08-2022 15:45-0400 Systolic blood pressure 120 mm[Hg] Asif Mejia Other [employer] Other 05-17-2022 10:15-0500 Body height 168.91 cm Asif Mejia Other [employer] Other 05-17-2022 10:15-0500 Body mass index (BMI) [Ratio] 55.93 kg/m2 Asif Mejia Other [employer] Other 05-17-2022 10:15-0500 Body weight 159.58 kg Asif Mejia Other [employer] Other 05-17-2022 10:15-0500 Diastolic blood pressure 86 mm[Hg] Asif Mejia Other [employer] Other 05-17-2022 10:15-0500 SaO2% (BldA) [Mass fraction] 96 % Asif Mejia Other [employer] Other 05-17-2022 10:15-0500 Systolic blood pressure 132 mm[Hg] Asif Mejia Other [employer] Other 04-05-2022 13:15-0500 Body height 168.91 cm Asif Mejia Other [employer] Other 04-05-2022 13:15-0500 Body mass index (BMI) [Ratio] 55.64 kg/m2 Asif Mejia Other [employer] Other 04-05-2022 13:15-0500 Body weight 158.76 kg Asif Mejia Other [employer] Other 04-05-2022 13:15-0500 Diastolic blood pressure 80 mm[Hg] Asif Mejia Other [employer] Other 04-05-2022 13:15-0500 SaO2% (BldA) [Mass fraction] 98 % Asif Mejia Other [employer] Other 04-05-2022 13:15-0500 Systolic blood pressure 124 mm[Hg] Asif Mejia Other [employer] Other 02-07-2022 14:45-0400 Body height 168.91 cm Asif Mejia Other [employer] Other 02-07-2022 14:45-0400 Body mass index (BMI) [Ratio] 55.48 kg/m2 Asif Mejia Other [employer] Other 02-07-2022 14:45-0400 Body weight 158.31 kg Asif Mejia Other [employer] Other 02-07-2022 14:45-0400 Diastolic blood pressure 80 mm[Hg] Asif Mejia Other [employer] Other 02-07-2022 14:45-0400 SaO2% (BldA) [Mass fraction] 94 % Asif Mejia Other [employer] Other 02-07-2022 14:45-0400 Systolic blood pressure 126 mm[Hg] Asif Mejia Other [employer] Other 01-18-2022 13:15-0400 Body height 168.91 cm Asif Mejia Other [employer] Other 01-18-2022 13:15-0400 Body mass index (BMI) [Ratio] 54.84 kg/m2 Asif Mejia Other [employer] Other 01-18-2022 13:15-0400 Body weight 156.49 kg Asif Mejia Other [employer] Other 01-18-2022 13:15-0400 Diastolic blood pressure 98 mm[Hg] Asif Jackie Other [employer] Other 01-18-2022 13:15-0400 SaO2% (BldA) [Mass fraction] 97 % Asif Mejia Other [employer] Other 01-18-2022 13:15-0400 Systolic blood pressure 132 mm[Hg] Asif Jackie Other [employer] Other 12-17-2021 11:45-0400 Body height 168.91 cm Asif Mejia Other [employer] Other 12-17-2021 11:45-0400 Body mass index (BMI) [Ratio] 54.84 kg/m2 Asif Mejia Other [employer] Other 12-17-2021 11:45-0400 Body weight 156.49 kg Asif Mejia Other [employer] Other 12-17-2021 11:45-0400 Diastolic blood pressure 80 mm[Hg] Asif Mejia Other [employer] Other 12-17-2021 11:45-0400 SaO2% (BldA) [Mass fraction] 97 % Asif Mejia Other [employer] Other 12-17-2021 11:45-0400 Systolic blood pressure 110 mm[Hg] Asif Jackie Other [employer] Other 10-15-2021 10:30-0400 Body height 168.91 cm Asif Jackie Other [employer] Other 10-15-2021 10:30-0400 Body mass index (BMI) [Ratio] 54.3 kg/m2 Asif Mejia Other [employer] Other 10-15-2021 10:30-0400 Body weight 154.95 kg Asif Mejia Other [employer] Other 10-15-2021 10:30-0400 Diastolic blood pressure 70 mm[Hg] Asif Mejia Other [employer] Other 10-15-2021 10:30-0400 SaO2% (BldA) [Mass fraction] 98 % Asif Mejia Other [employer] Other 10-15-2021 10:30-0400 Systolic blood pressure 110 mm[Hg] Asif Mejia Other [employer] Other 09-13-2021 10:45-0400 Body height 168.91 cm Destini Kilgore Other [employer] Other 09-13-2021 10:45-0400 Body mass index (BMI) [Ratio] 54.21 kg/m2 Destini Kilgore Other [employer] Other 09-13-2021 10:45-0400 Body weight 154.68 kg Destini Kilgore Other [employer] Other 09-13-2021 10:45-0400 Diastolic blood pressure 74 mm[Hg] Destini Kilgore Other [employer] Other 09-13-2021 10:45-0400 Systolic blood pressure 124 mm[Hg] Destini Kilgore Other [employer] Other 08-02-2021 15:30-0400 Body height 168.91 cm Asif Mejia Other [employer] Other 08-02-2021 15:30-0400 Body mass index (BMI) [Ratio] 52.71 kg/m2 Asif Mejia Other [employer] Other 08-02-2021 15:30-0400 Body weight 150.41 kg Asif Mejia Other [employer] Other 08-02-2021 15:30-0400 Diastolic blood pressure 82 mm[Hg] Asif Mejia Other [employer] Other 08-02-2021 15:30-0400 SaO2% (BldA) [Mass fraction] 97 % Asif Mejia Other [employer] Other 08-02-2021 15:30-0400 Systolic blood pressure 134 mm[Hg] Asif Mejia Other [employer] Other 07-09-2021 16:00-0400 Body height 168.91 cm Asif Mejia Other [employer] Other 07-09-2021 16:00-0400 Diastolic blood pressure 80 mm[Hg] Asif Mejia Other [employer] Other 07-09-2021 16:00-0400 SaO2% (BldA) [Mass fraction] 99 % Asif Mejia Other [employer] Other 07-09-2021 16:00-0400 Systolic blood pressure 130 mm[Hg] Asif Mejia Other [employer] Other 07-04-2021 15:30-0500 Body height 168.91 cm Mellissa Strange Other [employer] Other 07-04-2021 15:30-0500 Body mass index (BMI) [Ratio] 52.78 kg/m2 Mellissa Strange Other [employer] Other 07-04-2021 15:30-0500 Body weight 150.6 kg Mellissa Strange Other [employer] Other 07-04-2021 15:30-0500 Diastolic blood pressure 96 mm[Hg] Mellissa Strange Other [employer] Other 07-04-2021 15:30-0500 Systolic blood pressure 137 mm[Hg] Mellissa Strange Other [employer] Other 06-07-2021 11:15-0500 Body height 168.91 cm Destini Kilgore Other [employer] Other 06-07-2021 11:15-0500 Body mass index (BMI) [Ratio] 52.48 kg/m2 Destini Kilgore Other [employer] Other 06-07-2021 11:15-0500 Body weight 149.73 kg Destini Kilgore Other [employer] Other 06-07-2021 11:15-0500 Respiratory rate 18 /min Destini Kilgore Other [employer] Other 04-30-2021 15:00-0500 Body height 168.91 cm Asif Mejia Other [employer] Other 04-30-2021 15:00-0500 Body mass index (BMI) [Ratio] 51.98 kg/m2 Asif Jackie Other [employer] Other 04-30-2021 15:00-0500 Body weight 148.33 kg Asif Jackie Other [employer] Other 04-30-2021 15:00-0500 Diastolic blood pressure 74 mm[Hg] Asif Jackie Other [employer] Other 04-30-2021 15:00-0500 Systolic blood pressure 116 mm[Hg] Asif Jackie Other [employer] Other 04-05-2021 17:00-0500 Body height 168.91 cm Asif Mejia Other [employer] Other 04-05-2021 17:00-0500 Body mass index (BMI) [Ratio] 50.93 kg/m2 Asif Jackie Other [employer] Other 04-05-2021 17:00-0500 Body weight 145.33 kg Asif Mejia Other [employer] Other 03-19-2021 12:15-0500 Body height 168.91 cm Asif Mejia Other [employer] Other 03-19-2021 12:15-0500 Body mass index (BMI) [Ratio] 49.92 kg/m2 Aisf Jackie Other [employer] Other 03-19-2021 12:15-0500 Body weight 142.43 kg Asif Mejia Other [employer] Other 03-19-2021 12:15-0500 Diastolic blood pressure 80 mm[Hg] Asif Mejia Other [employer] Other 03-19-2021 12:15-0500 Systolic blood pressure 120 mm[Hg] Asif Mejia Other [employer] Other 02-26-2021 14:30-0400 Body height 168.91 cm Asif Mejia Other [employer] Other 02-26-2021 14:30-0400 Body mass index (BMI) [Ratio] 50.84 kg/m2 Asif Mejia Other [employer] Other 02-26-2021 14:30-0400 Body weight 145.06 kg Asif Mejia Other [employer] Other 02-26-2021 14:30-0400 Diastolic blood pressure 70 mm[Hg] Asif Mejia Other [employer] Other 02-26-2021 14:30-0400 SaO2% (BldA) [Mass fraction] 98 % Asif Mejia Other [employer] Other 02-26-2021 14:30-0400 Systolic blood pressure 118 mm[Hg] Asif Mejia Other [employer] Other Encounters Encounter Date Encounter Type Care Provider Facility Start: 05-05-2024 End: 05-05-2024 Otoniel Schilling NP Work Phone: [facility] Start: 05-05-2024 End: 05-05-2024 Bamboo flowsheet Cheyanne Shakir INTERNET SALES REPRESENTATIVE Work Phone: [facility] Start: 05-05-2024 End: 05-05-2024 Office outpatient visit 25 minutes Cheyanne Shakir INTERNET SALES REPRESENTATIVE Work Phone: [facility] Comment on above: Migraine without aur a and without status migrainosus, not intractable (CMS/HCC) (Primary Dx); CARLOS (obstructive sleep apnea); Lumbar radiculopathy; Degeneration of intervertebral disc of lumbar region, unspecified whether pain present; Paresthesias; Polypharmacy; Seizure (CMS/HCC) Start: 05-05-2024 End: 05-05-2024 ambulatory CHEYANNE SHAKIR Not Available Start: 04-27-2024 ambulatory Alexey Maki Facility:[facility] Start: 03-10-2024 End: 03-10-2024 Bamboo flowsheet Tank Anisha DO Work Phone: [facility] Start: 03-10-2024 End: 03-10-2024 Bamboo flowsheet Tank Anisha DO Work Phone: [facility] Start: 03-10-2024 End: 03-10-2024 Office outpatient visit 25 minutes Tank Anisha DO Work Phone: [facility] Comment on above: CARLOS (obstructive sle ep apnea) (Primary Dx); Hypoxia; Hypersomnia; Obesity due to excess calories, unspecified class, unspecified whether serious comorbidity present; Snoring Start: 03-10-2024 End: 03-10-2024 ambulatory TANK ANISHA Not Available Start: 03-04-2024 End: 03-04-2024 Office outpatient visit 15 minutes Cheyanne Schilling INTERNET SALES REPRESENTATIVE Work Phone: [facility] [address] Comment on above: Migraine without aur a and without status migrainosus, not intractable (CMS/HCC) (Primary Dx); CARLOS (obstructive sleep apnea); Lumbar radiculopathy; Paresthesias; Polypharmacy; Seizure (CMS/HCC) Start: 03-04-2024 End: 03-04-2024 ambulatory CHEYANNE SCHILLING Not Available Start: 03-04-2024 End: 03-04-2024 Bamboo flowsheet Cheyanne Schilling INTERNET SALES REPRESENTATIVE Work Phone: [facility] [address] Start: 03-04-2024 End: 03-04-2024 Bamboo flowsheet Cheyanne Schilling INTERNET SALES REPRESENTATIVE Work Phone: [facility] [address] Start: 02-25-2024 End: 02-25-2024 Patient encounter procedure INTERNET SALES REPRESENTATIVE-C Alyssa Arreola Work Phone: [facility] [place] Work Phone: Start: 02-25-2024 End: 02-25-2024 ambulatory INTERNET SALES REPRESENTATIVE-C Alyssa Arreola Work Phone: [facility] Work Phone: Start: 02-19-2024 End: 02-19-2024 Bamboo flowsheet Joel Jerez DO Work Phone: [facility] Start: 02-19-2024 End: 02-19-2024 Bamboo flowsheet Christophpaz Alarconett DO Work Phone: [facility] Start: 02-19-2024 End: 02-19-2024 Patient encounter procedure Joel Jerez DO Work Phone: [facility] Comment on above: Paresthesia (Primary Dx) Start: 02-19-2024 End: 02-19-2024 ambulatory JOEL JEREZ Not Available Start: 02-16-2024 Registered Recurring INTERNET SALES REPRESENTATIVE-C Alanis Azar Work Phone: [facility] Start: 02-12-2024 End: 02-12-2024 Lab Drop off KAYY MIRAMONTES [facility] Start: 02-12-2024 End: 02-12-2024 ambulatory PA-Jess MIRAMONTES Facility:[facility] Start: 02-12-2024 End: 02-12-2024 Patient encounter procedure KAYY MIRAMONTES [facility] Start: 02-11-2024 End: 02-11-2024 Bamboo flowsheet Cheyanne Schilling INTERNET SALES REPRESENTATIVE Work Phone: [facility] [address] Start: 02-11-2024 End: 02-11-2024 Bamboo flowsheet Cheyanne Schilling INTERNET SALES REPRESENTATIVE Work Phone: [facility] [address] Start: 02-11-2024 End: 02-17-2024 Telephone encounter Cheyanne Schilling INTERNET SALES REPRESENTATIVE Work Phone: [facility] [address] Start: 02-11-2024 End: 02-11-2024 Office outpatient visit 25 minutes Cheyanne Schilling INTERNET SALES REPRESENTATIVE Work Phone: [facility] Comment on above: Migraine without aur a and without status migrainosus, not intractable (CMS/HCC) (Primary Dx); CARLOS (obstructive sleep apnea); Carpal tunnel syndrome, bilateral; Polypharmacy; Seizure (CMS/HCC) Start: 02-11-2024 End: 02-11-2024 ambulatory CHEYANNE SCHILLING Not Available Start: 01-15-2024 End: 01-15-2024 ambulatory INTERNET SALES REPRESENTATIVE-C Alyssa Arreola Work Phone: [facility] Work Phone: Start: 01-15-2024 End: 01-15-2024 Patient encounter procedure INTERNET SALES REPRESENTATIVE-C Alyssa Arreola Work Phone: [facility] Work Phone: Start: 01-06-2024 Registered Recurring INTERNET SALES REPRESENTATIVE-C Alanis Azar Work Phone: [facility] Start: 01-02-2024 End: 01-02-2024 ambulatory INTERNET SALES REPRESENTATIVE-C Alyssa Arreola Work Phone: [facility] Work Phone: Start: 01-02-2024 End: 01-02-2024 Patient encounter procedure INTERNET SALES REPRESENTATIVE-C Alyssa Maxwell Work Phone: [facility] [place] Work Phone: Start: 12-16-2023 Registered Recurring INTERNET SALES REPRESENTATIVE-C Alanis la Maxwell Work Phone: [facility] [employer] Start: 12-11-2023 End: 12-11-2023 ambulatory INTERNET SALES REPRESENTATIVE-C Alyssa Lesly Maxwell Work Phone: [facility] Work Phone: Start: 12-11-2023 End: 12-11-2023 Patient encounter procedure INTERNET SALES REPRESENTATIVE-C Alyssa Maxwell Work Phone: [facility] Work Phone: Start: 10-15-2023 Registered Recurring INTERNET SALES REPRESENTATIVE-C Alanis la Maxwell Work Phone: [facility] [employer] Start: 09-24-2023 End: 09-24-2023 ambulatory CHEYANNE SCHILLING Not Available Start: 09-04-2023 End: 09-04-2023 ambulatory INTERNET SALES REPRESENTATIVE-C Alyssa Lesly Maxwell Work Phone: [facility] Work Phone: Start: 09-04-2023 End: 09-04-2023 Patient encounter procedure INTERNET SALES REPRESENTATIVE-C Alyssa Maxwell Work Phone: [facility] Work Phone: Start: 07-29-2023 End: 07-29-2023 ambulatory PA-C KAYY MIRAMONTES Facility:[facility] Start: 07-29-2023 End: 07-29-2023 Patient encounter procedure KAYY MIRAMONTES [facility] Start: 07-16-2023 End: 07-16-2023 ambulatory INTERNET SALES REPRESENTATIVE-C Alyssa Lesly Maxwell Work Phone: [facility] Work Phone: Start: 07-16-2023 End: 07-16-2023 Patient encounter procedure INTERNET SALES REPRESENTATIVE-C Alyssa Arreola Work Phone: [facility] Work Phone: Start: 07-15-2023 End: 07-15-2023 ambulatory Hermilonelson GASTON Facility[facility] Start: 07-15-2023 End: 07-15-2023 Patient encounter procedure Hermilo GASTON [facility] Start: 07-08-2023 End: 07-08-2023 ambulatory PA-C KAYY MIRAMONTES Facility[facility] Start: 07-08-2023 End: 07-08-2023 Lab Drop off KAYY MIRAMONTES [facility] Start: 07-08-2023 End: 07-08-2023 ambulatory Hermilonelson GASTON Facility:[facility] Start: 07-08-2023 End: 07-08-2023 Patient encounter procedure Hermilo GASTON [facility] Start: 06-24-2023 ambulatory PA-C KAYY MIRAMONTES Facility:[facility] Start: 06-24-2023 Registered Recurring INTERNET SALES REPRESENTATIVE-Jess Azar Work Phone: [facility] Start: 06-05-2023 End: 06-05-2023 ambulatory Asif Jackie Other [employer] Other Start: 06-05-2023 Telephone encounter Asif Meija [facility] Start: 06-04-2023 (PROC) PROCEDURE Asif Mejia [facility] Start: 06-04-2023 End: 06-04-2023 Admission to same day surgery center INTERNET SALES REPRESENTATIVE-C Alyssa Arreola Work Phone: [facility] Work Phone: Start: 06-04-2023 End: 06-04-2023 ambulatory INTERNET SALES REPRESENTATIVE-C Alyssa Lesly Maxwell Work Phone: [facility] Work Phone: Start: 05-28-2023 End: 05-28-2023 ambulatory PA-C KAYY MIRAMONTES Facility:[facility] Start: 05-28-2023 End: 05-28-2023 Patient encounter procedure KAYY MIRAMONTES [facility] Start: 05-19-2023 End: 05-19-2023 Patient encounter procedure INTERNET SALES REPRESENTATIVE-C Alyssa Arreola Work Phone: [facility] Work Phone: Start: 05-19-2023 End: 05-19-2023 ambulatory INTERNET SALES REPRESENTATIVE-C Alyssa Lesly Maxwell Work Phone: [facility] Work Phone: Start: 05-19-2023 Office outpatient vi sit 25 minutes Asif Jackie [facility] Start: 05-19-2023 End: 05-19-2023 Patient encounter procedure INTERNET SALES REPRESENTATIVE-C Alyssa Maxwell Work Phone: [facility]- Start: 04-16-2023 End: 04-16-2023 ambulatory Asif Jackie Other [facility] Other Start: 04-16-2023 Telephone encounter Asif Jackie [facility] Start: 04-09-2023 Office outpatient vi sit 25 minutes Destini Kilgore [facility] Start: 04-09-2023 End: 04-09-2023 ambulatory INTERNET SALES REPRESENTATIVE-C Alyssa Lesly Maxwell Work Phone: [facility] Work Phone: Start: 04-09-2023 End: 04-09-2023 Patient encounter procedure INTERNET SALES REPRESENTATIVE-C Alyssa Maxwell Work Phone: [facility] [place] Work Phone: Start: 04-09-2023 End: 04-09-2023 Patient encounter procedure INTERNET SALES REPRESENTATIVE-C Alyssapollo Arreola Work Phone: [facility] Work Phone: Start: 03-06-2023 Registered Recurring INTERNET SALES REPRESENTATIVE-C Alanisloretta Azar Work Phone: [facility] Start: 02-25-2023 Registered Recurring INTERNET SALES REPRESENTATIVE-C Alanis Azar Work Phone: [facility] Start: 01-23-2023 End: 01-23-2023 ambulatory Asif Mejia Other [employer] Other Start: 01-23-2023 Patient encounter procedure Asif Mejia [facility] Start: 01-09-2023 End: 01-09-2023 ambulatory Destini Kilgore Other [employer] Other Start: 01-09-2023 Office outpatient vi sit 25 minutes Destini Kilgore [facility] Start: 11-07-2022 End: 11-07-2022 ambulatory Asifjohn Mejia Other [employer] Other Start: 11-07-2022 Office outpatient vi sit 25 minutes Asif Jackie [facility] Start: 10-31-2022 End: 10-31-2022 ambulatory Asif Mejia Other [employer] Other Start: 10-31-2022 Office outpatient vi sit 25 minutes Asif Jackie [facility] Start: 08-26-2022 End: 08-27-[address] MARTI JEREZ . Facility: Start: 08-07-2022 End: 08-07-2022 ambulatory Asifjohn Mejia Other [employer] Other Start: 08-07-2022 Office outpatient vi sit 15 minutes Asif Jackie [facility] Start: 08-05-2022 End: 08-05-[address] MARTI JEREZ . Facility:[facility] Start: 07-24-2022 (PROC) PROCEDURE Asif Mejia [facility] Start: 07-24-2022 End: 07-24-2022 Admission to same day surgery center INTERNET SALES REPRESENTATIVE-C Alyssapollo Mortensenmer Work Phone: [facility] Work Phone: Start: 07-24-2022 End: 07-24-2022 ambulatory INTERNET SALES REPRESENTATIVE-C Alyssa Lesly Maxwell Work Phone: [facility] Work Phone: Start: 07-14-2022 End: 07-14-2022 ambulatory FRANNIE DIAB . Facility:[facility] Start: 07-08-2022 Office outpatient vi sit 25 minutes Asif Mejia [facility] Start: 07-08-2022 End: 07-08-2022 ambulatory INTERNET SALES REPRESENTATIVE-C Alyssa Elsly Maxwell Work Phone: [facility] Work Phone: Start: 07-08-2022 End: 07-08-2022 Patient encounter procedure INTERNET SALES REPRESENTATIVE-C Alyssapollo Mortensenmer Work Phone: [facility] [place] Work Phone: Start: 05-20-2022 End: 05-20-[address] MARTI JEREZ . Facility:[facility] Start: 05-17-2022 End: 05-17-2022 ambulatory Asif Mejia Other [employer] Other Start: 05-17-2022 Office outpatient vi sit 25 minutes Asifjohn Mejia [facility] Start: 05-01-2022 End: 05-25-2022 ambulatory ASIFJOHN MEJIA Facility:[facility] Start: 04-05-2022 Office outpatient vi sit 25 minutes Asifjohn Mejia [facility] Start: 04-05-2022 End: 04-05-2022 ambulatory INTERNET SALES REPRESENTATIVE-C Alyssa Lesly Maxwell Work Phone: [employer] Other Start: 04-05-2022 End: 04-05-2022 Patient encounter procedure INTERNET SALES REPRESENTATIVE-C Alyssa Arreola Work Phone: [facility] Start: 03-18-2022 End: 03-19-2022 ambulatory ALYSSA ARREOLA Facility:[facility] Start: 02-07-2022 End: 02-07-2022 ambulatory Asif Jackie Other [employer] Other Start: 02-07-2022 Patient encounter procedure Asif Jackie [facility] Start: 01-18-2022 End: 01-18-2022 ambulatory Asif Jackie Other [employer] Other Start: 01-18-2022 Office outpatient vi sit 25 minutes Asif Jackie [facility] [place] Start: 12-24-2021 End: 12-24-2021 Patient encounter procedure INTERNET SALES REPRESENTATIVE-C Alyssa Arreola Work Phone: [facility] Start: 12-17-2021 End: 12-17-2021 ambulatory Asif Jackie Other [employer] Other Start: 12-17-2021 Office outpatient vi sit 25 minutes Asif Jackie [facility] Start: 11-26-2021 ambulatory ALYSSA ARREOLA Facility: [facility] Start: 11-22-2021 End: 11-23-[address] MARTI JEREZ . Facility:[facility] Start: 11-21-2021 End: 11-22-2021 ambulatory SUSIE ESTRADA Facility:[facility] Start: 10-23-2021 End: 10-23-[address] NUBIA WHYTE . Facility:[facility] Start: 10-16-2021 End: 11-23-2021 ambulatory ALYSSA ARREOLA Facility:[facility] Start: 10-15-2021 End: 10-15-2021 ambulatory Asif Mejia Other [employer] Other Start: 10-15-2021 Office outpatient vi sit 25 minutes Asif Mejia [facility] Start: 10-15-2021 End: 10-15-2021 Patient encounter procedure INTERNET SALES REPRESENTATIVE-C Alyssa Maxwell Work Phone: [facility] Start: 10-12-[address] MARTI JEREZ . Facili ty:[facility] Start: 10-09-2021 End: 10-09-2021 Lab Drop off Virgilio Rhoades [facility] Start: 10-09-2021 End: 10-09-2021 Patient encounter procedure Cipriano Romero Jr. [facility] Start: 09-19-2021 End: 09-19-2021 ambulatory Destini Kilgore Other [employer] Other Start: 09-19-2021 Telephone encounter Destini Kilgore [facility] Start: 09-13-2021 End: 09-13-2021 ambulatory Destini Kilgore Other [employer] Other Start: 09-13-2021 Office outpatient vi sit 15 minutes Destini Kilgore [facility] Start: 09-06-2021 End: 09-06-2021 ambulatory ALYSSA ARREOLA Facility:[facility] Start: 09-04-2021 End: 09-05-2021 ambulatory ALYSSA ARREOLA Facility:[facility] Start: 08-15-2021 (Procedure) Short Asif Mejia [facility] Start: 08-15-2021 End: 08-15-2021 ambulatory Asif Mejia Other [employer] Other Start: 08-09-2021 End: 08-09-2021 Lab Drop off KAYY MIRAMONTES [facility] Start: 08-09-2021 End: 08-09-2021 Patient encounter procedure KAYY MIRAMONTES [facility] Start: 08-02-2021 End: 08-02-2021 ambulatory Asif Mejia Other [employer] Other Start: 08-02-2021 Office outpatient vi sit 25 minutes Asif Jackie [facility] Start: 07-09-2021 End: 07-09-2021 ambulatory Mellissa Strange Other [employer] Other Start: 07-09-2021 Office outpatient vi sit 25 minutes Asif Jackie [facility] Start: 07-09-2021 Telephone encounter Mellissa Strange [facility] Start: 07-04-2021 End: 07-04-2021 ambulatory Mellissa Strange Other [employer] Other Start: 07-04-2021 Office outpatient ne w 30 minutes Mellissa Strange [facility] Start: 06-07-2021 End: 06-07-2021 ambulatory Destini Kilgore Other [employer] Other Start: 06-07-2021 Office outpatient vi sit 25 minutes Destini Kilgore [facility] Start: 05-08-2021 (Procedure) Short Asif Mejia [facility] Start: 05-08-2021 End: 05-08-2021 ambulatory Asif Jackie Other [employer] Other Start: 04-30-2021 End: 04-30-2021 ambulatory Asifjohn Mejia Other [employer] Other Start: 04-30-2021 Office outpatient vi sit 25 minutes Asif Jackie [facility] Start: 04-26-2021 End: 04-27-2021 ambulatory EHAB A [facility] Facility:[facility] Start: 04-19-2021 (Procedure) Enzo Mejia [facility] Start: 04-19-2021 End: 04-19-2021 ambulatory Asif Mejia Other [employer] Other Start: 04-05-2021 End: 04-05-2021 ambulatory Asif Mejia Other [employer] Other Start: 04-05-2021 Office outpatient vi sit 25 minutes Asifjohn Mejia [facility] Start: 03-29-2021 (Procedure) Enzo Mejia [facility] Start: 03-29-2021 End: 03-29-2021 ambulatory Asif Mejia Other [employer] Other Start: 03-19-2021 End: 03-19-2021 ambulatory Asif Mejia Other [employer] Other Start: 03-19-2021 Office outpatient vi sit 25 minutes Asifjohn Mejia [facility] Start: 03-07-2021 (Procedure) Enzo Mejia [facility] Start: 03-07-2021 End: 03-07-2021 ambulatory Asif Mejia Other [employer] Other Start: 02-26-2021 End: 02-26-2021 ambulatory Asif Mejia Other [employer] Other Start: 02-26-2021 Office outpatient vi sit 25 minutes Asifjohn Mejia [facility] Procedures Date Procedure Procedure Detail Performing Clinician Start: 02-25-2024 MR lumbar spine wo con INTERNET SALES REPRESENTATIVE-C Alyssa Arreola Work Phone: Start: 02-19-2024 End: 02-19-2024 Needle emg ea extremty w/paraspinl area complete Cheyanne Schilling NP Work Phone: Start: 12-11-2023 X-ray of both knees INTERNET SALES REPRESENTATIVE- C Alyssa Arreola Work Phone: Start: 07-15-2023 Injection of botulin um toxin type A into detrusor muscle of urinary bladder KAYY KULWINDER Start: 06-04-2023 [employer] en[employer] (Bilateral) INTERNET SALES REPRESENTATIVE-C Alyssa Arreola Work Phone: Start: 05-19-2023 X-ray of lumbar spin e, four views INTERNET SALES REPRESENTATIVE-C Alyssa Arreola Work Phone: Start: 04-09-2023 Plain X-ray of left hip INTERNET SALES REPRESENTATIVE-C Alyssa Arreola Work Phone: Start: 08-05-2022 Microscopic observat ion [Identifier] in Cervix by Cyto stain Cheyanne Schilling INTERNET SALES REPRESENTATIVE Work Phone: Start: 07-24-2022 [employer] Frequ en[employer] (Bilateral) INTERNET SALES REPRESENTATIVE-C Alyssa Arreola Work Phone: Start: 07-08-2022 Plain X-ray of right shoulder INTERNET SALES REPRESENTATIVE-C Alyssa Arreola Work Phone: Start: 04-05-2022 X-ray of cervical spine INTERNET SALES REPRESENTATIVE-C Alyssa Arreola Work Phone: Start: 12-24-2021 MR thoracic spine wo con INTERNET SALES REPRESENTATIVE-Jess Arreola Work Phone: Start: 10-15-2021 Radiography of thora cic spine INTERNET SALES REPRESENTATIVE-C Alyssa Arreola Work Phone: Start: 02-20-2021 Cystoscopy KAYY ROBERTSON Start: 01-04-2020 Cystoscopy KAYY ROBERTSON Start: 06-02-2018 cysto/ botox KAYY ROBERTSON Start: 01-28-2017 cystoscopy KAYY ROBERTSON back surgery KAYY MIRAMONTES carpel tunnel release SAGE MIRAMONTES cesearian section KAYY ROBERTSON Cholecystectomy KAYY CALDERON D&C KAYY MIRAMONTES H/O: tubal ligation KAYY MIRAMONTES Plan of Treatment Date Care Activity Detail Author Start: 08-05-2025 Screening for malign ant neoplasm of cervix [facility] Start: 03-16-2025 End: 03-16-2025 Patient encounter procedure [facility] [place] [address] Start: 06-03-2024 End: 06-03-2024 Patient encounter procedure 06/03/2024 1:20 PM EST Office Visit [facility] [address] [place] [address] Cheyanne Schilling NP [address] [place] [address] [facility] [place] Start: 05-05-2024 End: 05-05-2025 MR Cervical spine WO contrast MR cervical spine wo contrast Imaging Routine Paresthesias Expected: 05/05/2024 (Approximate), Expires: 05/05/2025 [facility] Work Phone: Comment on above: Expected: 05/05/2024 (Approximate), Expires: 05/05/2025 Start: 05-05-2024 End: 05-05-2024 Patient encounter procedure [facility] [place] [address] Comment on above: Arrived Start: 03-10-2024 End: 03-10-2024 Patient encounter procedure [facility] [place] [address] Start: 03-04-2024 End: 03-04-2024 Patient encounter procedure 03/04/2024 3:40 PM EST Office Visit [facility] [address] [place] [address] Cheyanne Schilling NP [address] [place] [address] Arrived [facility] [place] [address] Comment on above: Arrived Start: 02-19-2024 End: 02-19-2024 Patient encounter procedure [facility] Comment on above: Arrived Start: 02-11-2024 End: 02-10-2025 EMG 2 Extremities EMG 2 Extremities Neurology Routine Carpal tunnel syndrome, bilateral Expected: 02/11/2024 (Approximate), Expires: 02/10/2025 [facility] Work Phone: Comment on above: Expected: 02/11/2024 (Approximate), Expires: 02/10/2025 Start: 02-11-2024 End: 02-11-2024 Patient encounter procedure 02/11/2024 10:40 AM EDT Office Visit [facility] [address] [place] [address] Cheyanne Schilling NP [address] [place] [address] Migraine without aura and without status migrainosus, not intractable (CMS/HCC) (Primary Dx); CARLOS (obstructive sleep apnea); Lumbar radiculopathy; Fibromyalgia; Polypharmacy [facility] [address] Comment on above: Migraine without aur a and without status migrainosus, not intractable (CMS/HCC) (Primary Dx); CARLOS (obstructive sleep apnea); Lumbar radiculopathy; Fibromyalgia; Polypharmacy Start: 12-28-2023 Influenza vaccination Influenza Vacc ine (#1) [facility] Start: 06-04-2023 [facility] Start: 07-24-2022 [facility] Start: 2009 Screening for malign ant neoplasm of breast Mammogram [facility] Start: 12-24-1999 Screening for malign ant neoplasm of cervix HPV/Cotest [facility] Start: 1969 Screening for malign ant neoplasm of colon [facility] MR Lumbar spine WO contrast [facility] Patient Education Jackie Non Diagn ostic Block [facility] Work Phone: Patient referral [facility] Work Phone: XR Knee - bilateral 4 Views [facility] Immunizations Immunization Date Immunization Notes Care Provider Yassine sheldon 10-07-2021 COVID-19 Comirnaty (Pfizer) Tri-Sucrose 12+ INTERNET SALES REPRESENTATIVE-C Alyssa Arreola Work Phone: [facility] 10-07-2021 SARS-CoV-2 mRNA (wsmjakwgbwm-vwkb-spvi ose) vaccine KAYY MIRAMONTES [facility] 10-07-2021 zoster vaccine recombinant KAYY MIRAMONTES [facility] 2020 SARS-CoV-2 (COVID-19 ) mRNA BNT-162b2 vax KAYY MIRAMONTES [facility] 12-02-2020 SARS-CoV-2 (COVID-19 ) mRNA BNT-162y1 vax KAYY MIRAMONTES [facility] 01-09-2015 influenza virus vaccine, unspecified formulation KAYY MIRAMONTES [facility] 01-09-2015 influenza, injectabl e, quadrivalent, preservative free INTERNET SALES REPRESENTATIVE-C Alyssa Arreola Work Phone: [facility] NEGATED: Highlighted row has not occurred!07-31-2020 influenza virus vaccine, unspecified formulation KAYY MIRAMONTES [facility] Payers Date Payer Category Payer Self-pay [id number] 2022 Medicaid [employer] [id number] 2022 Medicaid [id number] 1969 Unknown [id number] 2.16.840.1.021893.3.579.2.647 1969 Unknown [id number] 2.16.840.1.340370.3.579.2.593 1969 Unknown [id number] 2.16.840.1.388467.3.579.2.593 1969 Unknown [id number] 2.16.840.1.839194.3.579.2.593 1969 Unknown [id number] 2.16.840.1.939392.3.579.2.593 1969 Unknown [id number] 2.16.840.1.641817.3.579.2.593 1969 Unknown [id number] 2.16.840.1.518772.3.579.2.593 1969 Unknown [id number] 2.16.840.1.879917.3.579.2.593 1969 Unknown [id number] 2.16.840.1.723041.3.579.2.593 1969 Unknown [id number] 2.16.840.1.514254.3.579.2.593 1969 Unknown [id number] 2.16.840.1.995696.3.579.2.593 1969 Unknown [id number] 2.16.840.1.918749.3.579.2.593 1969 Unknown [id number] 2.16.840.1.666669.3.579.2.593 1969 Unknown [id number] 2.16.840.1.694312.3.579.2.593 1969 Unknown [id number] 2.16.840.1.919486.3.579.2.593 1969 Unknown [id number] 2.16.840.1.804610.3.579.2.727 1969 Unknown [id number] 2.16.840.1.433592.3.579.2.727 1969 Unknown [id number] 2.16.840.1.789312.3.579.2.727 1969 Unknown [id number] 2.16.840.1.754436.3.579.2.727 1969 Unknown [id number] 2.16.840.1.136462.3.579.2.727 1969 Unknown [id number] 2.16.840.1.137624.3.579.2.727 1969 Unknown [id number] 2.16.840.1.007044.3.579.2.727 1969 Unknown [id number] 2.16.840.1.856755.3.579.2.727 1969 Unknown [id number] 2.16.840.1.293532.3.579.2.1259 1969 Unknown [id number] 2.16.840.1.005906.3.579.2.1259 1969 Unknown [id number] 2.16.840.1.142076.3.579.2.1259 1969 Unknown [id number] 2.16.840.1.767580.3.579.2.1259 1969 Unknown [id number] 2.16.840.1.922741.3.579.2.1259 1969 Unknown [id number] 2.16.840.1.020171.3.579.2.1259 1959 Unknown [id number] Self-pay Self Pay Cosmetic/Pain Mgmt [id number] Unknown [id number] 2.16.840.1.210384.19 Unknown [place] [employer]/[place] [id number] Unknown [place] [employer]/[place] [id number] Unknown [id number] 2.16.840.1.572944.3.579.2.531 Unknown [id number] 2.16.840.1.063477.3.579.2.531 Unknown [id number] 2.16.840.1.936152.3.579.2.531 Unknown [id number] 2.16.840.1.805477.3.579.2.531 Unknown [id number] 2.16.840.1.960438.3.579.2.531 Social History Date Type Detail Facility Start: 12-29-2020 End: 09-24-2023 Tobacco smoking status Never smoked tobacco (finding) [employer] Other Start: 09-24-2023 End: 03-04-2024 Sex Assigned At Female [facility] Other Start: 08-29-2021 End: 07-24-2022 Tobacco smoking status MSIS Ex-smoker (finding) [facility] Start: 1970 Sex Assigned At Female [facility] Tobacco smoking status Never [facility] Start: 09-24-2023 Tobacco use and exposure Smokeless tobacco non-user [facility] Start: 09-24-2023 End: 03-04-2024 Alcoholic beverage intake Lifetime non-drinker (finding) [facility] Start: 09-24-2023 End: 03-04-2024 History of Social function [facility] Start: 1970 Sex assigned at Not on file [facility] Start: 05-05-2024 Alcoholic beverage intake Ex-drinker (finding) [facility] Goals Date Patient Goal Desired Activity /State Functional Status Date Assessment Result Facility 02-12-2024 Functional Status N/A [facility] 07-29-2023 Functional Status N/A [facility] 07-15-2023 Functional Status N/A [facility] 05-28-2023 Functional Status N/A [facility] Clinical Notes 03-19-2021 to 05-05-2024 Cheyanne Schilling NP - 05/05/2024 11:20 AM ESTPatient InstructionsTank [place] DO - 03/10/2024 1:15 PM Herb Schilling NP - 03/04/2024 3:40 PM ESTPatient InstructionsPatient Instructions Note Date & Type Note Facility 05-05-2024 History of Present illness Narrative Images from the original note were not included. Chief Complaint Patient presents with Migraine Tingling Subjective Shailesh Blake is a 53 y.o. female. History of Present Illness The patient presents today for follow up. She continues to take Emgality once a month. Her most recent injection was on 04/09/2024. She has had approximately 4 migraines per month recently. They are located in the temporal region unilaterally. Severity is moderate to severe. She describes them as throbbing and achy. They are accompanied by increased sensitivity to light and sounds. They are not accompanied by visual disturbance, nausea, or vomiting. They are aggravated by physical activity and relieved by rest. The patient states she does not feel like moving when she has a headache and will lay in bed. She took Nurtec for her recent breakthrough migraines and states this was only helpful for 1 out of 4. For the migraines that weren't relieved by Nurtec, she also took Aleve. This helped minimally, though she states her pain was still, unbearable. The migraines lasted all day. The patient also reports muscle tightness in the posterior neck at times. She continues to have intermittent tingling in the palms of the bilateral hands (left more significant than right). She states her arms are, falling asleep, intermittently, even when she does not place external pressure on them. She has not noticed any significant upper extremity weakness and does not drop objects. She is following with [facility] for her neck and low back and states they have been wonderful. They have her in physical therapy and have obtained braces to help with her pain. They are also performing trigger injections in the posterior neck and low back as needed. Her back pain has improved with these interventions. Still with bilateral knee weakness. She denies any further new concerns. The patient states she has a history of 1 isolated seizure which occurred in 2003. She denies any seizure-like activity or loss of conscious since the prior neurology appointment. Review of Systems Constitutional: Positive for fatigue. Negative for appetite change, chills, diaphoresis, fever and unexpected weight change. Negative for jaw claudication HENT: Negative for trouble swallowing and voice change. Eyes: Denies visual change, double vision, or loss of vision Respiratory: Negative for cough, shortness of breath and wheezing. Cardiovascular: Negative for chest pain and palpitations. Gastrointestinal: Negative for abdominal pain, blood in stool and vomiting. Musculoskeletal: Positive for arthralgias, back pain (low back) and neck pain. Negative for gait problem and myalgias. Positive for bilateral knee pain Neurological: Positive for weakness and headaches (accompanied by photophobia and phonophobia). Negative for dizziness, tremors, seizures, syncope, facial asymmetry, speech difficulty, light-headedness and numbness. Positive for paresthesias (bilateral upper extremities and feet) Negative for saddle anesthesia. Psychiatric/Behavioral: Negative for confusion, hallucinations and suicidal ideas. Positive for history of anxiety and depression Past Medical History: Diagnosis Date Anxiety Backache Benign intracranial hypertension Blurred vision Common migraine (CMS/HCC) Depression (CMS/HCC) Diplopia Disturbance of skin sensation Fibromyalgia Headache Intractable migraine without aura (CMS/HCC) Obesity Obstructive sleep apnea Pain in joint pelvic region and thigh Pain in limb Peripheral neuropathy Seizure disorder (CMS/HCC) Tension type headache Past Surgical History: Procedure Laterality Date BACK SURGERY CARPAL TUNNEL RELEASE ENDOMETRIAL ABLATION OTHER SURGICAL HISTORY Lumbar radiofrequency ablation TUBAL LIGATION Family History Problem Relation Name Age of Onset Depression Other Hyperlipidemia Other Migraines Other Social History Tobacco Use Smoking status: Never Smokeless tobacco: Never Substance Use Topics Alcohol use: Not Currently Allergies: Aspirin and Wound dressing adhesive Vitals: 05/05/24 1109 BP: 144/88 Pulse: 104 SpO2: 96% Body mass index is 53.52 kg/m . weight: 352 lb Neurologic exam: Mental status and general appearance: Awake and alert with unlabored respirations. Oriented to person, place, and time. Recent and remote memory are intact. Speech is clear and fluent without aphasia. Speech is non-dysarthric. Attention and concentration are normal. Fund of knowledge is appropriate for level of education. Wearing glasses. Obese. Pleasant. Cranial nerves: CN II: Visual acuity is normal. Visual osborne full to confrontation. CN III, IV, : Pupils are equal, round, and reactive to light. Extraocular movements intact. No ptosis present. CN V: Facial sensation is normal. CN VII: Full and symmetric facial movement. CN VIII: Hearing is normal to finger rub bilaterally. CN IX and X: Palate elevates symmetrically. CN XI: Shoulder shrug is normal bilaterally. CN XII: Tongue is midline without atrophy or fasciculation. Motor: RUE strength deltoid , biceps , triceps , wrist extensors , and wrist flexor strength 5/5. Project Portfolio Analyst strength 4+/5. LUE strength deltoid , biceps , triceps , wrist extensors , and wrist flexor strength 5/5. Project Portfolio Analyst strength 4+/5. RLE strength iliopsoas, quadriceps, tibialis anterior, and plantar flexion strength 5/5. LLE strength iliopsoas, quadriceps, tibialis anterior, and plantar flexion strength 5/5. Tone is normal. Sensory: Sensation is intact to light touch throughout all four extremities. Sensation is intact to temperature in all extremities. Reflexes: RUE biceps reflex 1+ , brachioradialis reflex 1+. LUE biceps reflex 1+ , brachioradialis reflex 1+. RLE knee reflex 0. LLE knee reflex 0. Coordination: Rnzmyh-hz-qtmu testing normal. Rapid alternating movements are normal. Gait: Normal. Steady. Review and summary of old records: EMG of the bilateral upper extremities at [facility] on 02/23/24: Normal. No evidence of a cervical motor radiculopathy, brachial plexopathy, or entrapment mononeuropathy. MRI of the lumbar spine w/o contrast on 02/25/24: Multilevel discovertebral degenerative changes similar prior examination on 02/14/21. The distal spinal cord is in adequate position without abnormality. Lower thoracic level: Unremarkable. L1-L2 and L2-L3: Mild disc bulge. Patent central canal and neural foramen. L3-L4: Mild spondylosis. Posterior disc bulge. LEFT foraminal disc protrusion. Mild central canal stenosis. Mild bilateral neural foraminal narrowing. Posterior element hypertrophy. L4-L5: Mild spondylosis. Mild anterolisthesis. Mild diffuse disc bulge. Posterior element hypertrophy. Patent neural foramen. L5-S1: No disc protrusion. Posterior element hypertrophy. Patent central canal and neural foramen. X-ray of the lumbar spine w/o contrast at [facility] on 05/19/23: No fractures or subluxation. No pathologic movement on flexion or extension. There is mild intervertebral disc height loss at L3-L4, L4-L5, and L5-S1. Facet degenerative changes are present throughout the lower lumbar spine. The sacrum and sacroiliac joints are normal. MRI of the brain w and w/o contrast at [facility] on 05/15/23: No acute intracranial process. Scattered nonenhancing T2 hyperintense white matter lesions which are nonspecific, typically attributed to prior trauma/inflammation/demyelinatio n, or chronic ischemia associated with migraine/atherosclerosis. Nasal sinus disease. MRI of the lumbar spine w/o contrast at [facility] on 02/14/21: See report for full details. At L3-L4, there is mild posterior annular bulging with moderately hypertrophic posterior elements resulting in the borderline spinal stenosis. There is mild neural foraminal encroachment bilaterally. At L4-L5, there is slight anterior spondylolisthesis at L4-L5 secondary to significant facet joint arthrosis. There is no spinal stenosis or neural foraminal encroachment at this level. At L5-S1, there is moderate facet joint arthrosis at the right L5-S1 without posterior disc osteophytosis. There is no neural foraminal encroachment bilaterally. Assessment/Plan Diagnoses and all orders for this visit: Migraine without aura and without status migrainosus, not intractable (CMS/HCC) 53-year-old female with chronic migraine. Onset was at 17 years of age. MRI of the brain on 05/15/23 was unremarkable for secondary headache cause. Ajovy, Aimovig, Depakote, venlafaxine, lamotrigine, and topiramate did not provide significant benefit for migraine prevention, and rizatriptan, naratriptan, and Ubrelvy were minimally effective in the past. Emgality has provided benefit. However, the patient states Nurtec only effectively reduced 1 of her 4 most recent migraines. I believe a trial of an alternative medication is indicated, as her breakthrough migraines are described as quite severe and negatively affect her quality of life and functional ability. PLAN: - Continue Emgality 120 mg subcutaneous once a month - May continue Nurtec 75 mg ODT as needed for acute migraine treatment - Samples have been set aside for Zavzpret 10 mg/act solution, and the patient plans to pick these up in our [place] office tomorrow. I educated the patient on proper use and possible adverse effects of Zavzpret. I advised the patient not to use Zavzpret concurrently with her Nurtec, as these medications work similarly. She verbalizes understanding and wishes to proceed. If well tolerated and effective, will plan to send in a formal prescription for Zavzpret at follow-up - Adequate hydration, sleep hygiene, and regular physical activity as tolerated - I recommended the patient keep a headache journal. If migraines seem to be triggered by neck tension, could consider a muscle relaxant in the future CARLOS (obstructive sleep apnea) The patient has a history of CARLOS. CPAP use has helped reduce the frequency of her morning headaches. PLAN: - Follow up with sleep medicine for management - I encouraged compliance with CPAP use while asleep Lumbar radiculopathy Degenerative disc disease (DDD), lumbar Suspected lumbar radiculopathy. The patient reports bilateral low back pain with radiation to the bilateral L4 dermatomal distribution and intermittent paresthesias in the feet. She denies lower extremity weakness aside from bilateral knee weakness which I believe is likely secondary to arthritis in that location. MRI of the lumbar spine on 02/25/24 identified DDD of the lumbar spine with mild central canal stenosis and neural foraminal narrowing at certain levels. MRI did not identify any significant spinal canal or neural foraminal stenosis. The patient previously followed with Dr. Mejia (pain management) but has since transitioned care to [facility] with positive response. PLAN: - Follow up with [facility] for management - She is taking gabapentin 400 mg by mouth three times a day (managed by outside provider) Paresthesias The patient reports intermittent paresthesias in the median nerve territory of the bilateral hands (right more significant than left) and numbness of the arms recently. She reports a history of bilateral carpal tunnel syndrome (CTS). She states she is status post carpal tunnel release on the right years ago with subsequent improvement in symptoms but denies history of left carpal tunnel release. However, [facility] EMG on 02/23/24 was normal and did not identify evidence of CTS. I have concern for possible cervical spinal stenosis and/or radiculopathy. The patient has dermatomal distribution of symptoms, weakness, and persistent symptoms despite conservative measures including physical therapy. This warrants imaging. PLAN: - MRI of the cervical spine to assess for a structural lesion including degenerative cervical spine disease which may be contributing to the patient's symptoms - Follow up with [facility] for management Polypharmacy PLAN: - Consider dose reduction or discontinuation of any unnecessary medications with outside providers [facility] ([facility]) The patient reportedly had one seizure in the past. This occurred in 2003, and details surrounding this are unclear to me. MRI of the brain on 05/15/23 was unremarkable for epileptogenic focus, and she has seemingly been seizure-free for 20 years at this point. PLAN: - The patient is taking lamotrigine (initially prescribed for purposes other than seizure prevention), however, this is also a quality antiepileptic medication - Consider further work up if there is any concern for breakthrough seizure in the future Diagnosis and treatment options discussed in detail. All questions answered. The patient verbalizes understanding and is agreeable to the plan. Discussion in layman's terms. Follow up in the office within 1 month; sooner if needed for new or worsening symptoms. DL Lemus [facility] documented in this encounter [facility] 05-05-2024 Instructions Cheyanne Schilling NP - 05/05/2024 11:20 AM EST - MRI of the cervical spine ([facility]) - Start Zavzpret as directed for acute migraine treatment. [facility] 03-10-2024 History of Present illness Narrative Images from the original note were not included. Chief Complaint Patient presents with Sleep Apnea Subjective Shailesh Blake, 53 y.o., female here for follow up HPI Sleep ND The patient states that she is wearing her machine nightly. She typically leaves it on for at least 4 hours. She denies any issues with her machine. She states that she is sleeping on average 9 hours a night. She gets up once to go to the bathroom. And forget to put it back on,. She is able to go back to sleep. She goes to bed at 8pm and gets up at 520am. She does not feel rested during the day and takes naps. She just got supplies but we received a renewal order. She will feel sleepy around noon. She will take a nap with the grandchild that she babysits. She states that she will go up and down the stairs. She was put on metformin for boardline DM and she has lost some weight. Past Medical History: Diagnosis Date Anxiety Backache Benign intracranial hypertension Blurred vision Common migraine (CMS/HCC) Depression (CMS/HCC) Diplopia Disturbance of skin sensation Fibromyalgia Headache Intractable migraine without aura (CMS/HCC) Obesity Obstructive sleep apnea Pain in joint pelvic region and thigh Pain in limb Peripheral neuropathy Seizure disorder (CMS/HCC) Tension type headache Past Surgical History: Procedure Laterality Date BACK SURGERY CARPAL TUNNEL RELEASE ENDOMETRIAL ABLATION OTHER SURGICAL HISTORY Lumbar radiofrequency ablation TUBAL LIGATION Family History Problem Relation Name Age of Onset Depression Other Hyperlipidemia Other Migraines Other Social History Tobacco Use Smoking status: Never Smokeless tobacco: Never Substance Use Topics Alcohol use: Never Allergies: Aspirin and Wound dressing adhesive General: No fever or chills HEENT: No nasal congestion or runny nose Pulmonary: No shortness of breath or cough Cardiovascular: No chest pain or palpitations GI: No nausea or vomiting : No dysuria or hematuria Musculoskeletal: No new aches or pains or muscle weakness Infectious: no recurrent fevers or infections Dermatologic: No rashes or skin lesions Neurologic: No new headaches or dizziness Vitals: 03/10/24 1251 BP: 132/88 Pulse: 81 SpO2: 96% Body mass index is 53.76 kg/m . weight: 353 lb 9.6 oz Neurologic exam: General: Normal body habitus, cooperative, pleasant Mental status: Awake, alert to person, place and time. Recent and remote memory are intact. Attention and concentration are normal. Fund of knowledge is appropriate for level of education. HEENT: NC/AT Cranial nerves: CN II: Visual osborne full to confrontation. No loss of vision CN III, IV, : pupils equal round and reactive to light. Extraocular movements intact. No ptosis present. CN V: Facial sensation is normal. CN VII: Full and symmetric facial movement. CN VIII: Hearing is normal CN IX and X: Palate elevates symmetrically. CN XI: Shoulder shrug is normal bilaterally. CN XII: Tongue is midline without atrophy or fasciculation. Speech: Clear and fluent no aphasia or dysarthria Pronator drift: Negative bilateral upper extremity Coordination: Intact, no signs of dysmetria Good finger to nose and rapid alternating movements Sensory: Pinprick intact in all four extremities. Motor: LUE 5/5 RUE 5/5 LLE 5/5 RLE 5/5 Tone: Physiologic, no tremor, bradykinesia or rigidity DTR: Bilateral Biceps 2/4 Bilateral BR 2/4 Bilateral Patellar 2/4 No spasticity Gait: Normal to casual gait Romberg's Negative Review and summary of old records: Assessment/Plan Diagnoses and all orders for this visit: CARLOS (obstructive sleep apnea) Hypoxia Hypersomnia Obesity due to excess calories, unspecified class, unspecified whether serious comorbidity present Snoring 53-year-old female with a moderate obstructive sleep apnea with an AHI of 17 and hypoxia down 78 percent. She reports compliance with her CPAP machine we did not get a download we are trying to get 1 from [facility]. She likely is taking off and not wearing it as long as she should through the night but states she is wearing at least 4 hours a night. She was counseled with her hypoxia down to 78 she needs to be wearing this whenever sleeping. She has lost a little bit of weight being put on metformin. She needs to be more aggressive with diet exercise weight loss to prevent her from going into full-blown diabetes and to help with her overall health. She was counseled on this and things that she can do. She still has some daytime hypersomnia and takes a nap. She would be best served by exercising during that nap time. Plan Trying to obtain a download from [employer] Her sleep study was once again reviewed with her with her oxygen going down to 78 percent Wear the CPAP machine whenever sleeping including naps The patient was counseled on the need for aggressive diet, exercise, and weight loss. The patient was counseled on the risks of stroke, MA, and sudden with CARLOS, along with the need for compliance with the CPAP/BiPAP treatment. The patient was counseled on proper sleep hygiene and adequate hours of sleep. The diagnosis was all discussed with the patient. All questions were answered and they agreed with the treatment plan. Patient will call if there are any new issues or questions. Pt has been fully educated on their diagnosis, treatment options, follow up plan, and return instructions Return to clinic: 1 year if her ocmpliance it good once we get it. documented in this encounter [facility] 03-04-2024 History of Present illness Narrative Images from the original note were not included. Cheyanne Schilling NP Chief Complaint Patient presents with Migraine Tingling Subjective Shailesh Blake is a 53 y.o. female. History of Present Illness Shailesh presents today for follow up. She had an EMG of the bilateral upper extremities completed for review. She had 7 to 8 migraine days in January 2024. Her migraines were located in the frontal region (left or right side). She describes them as sharp and throbbing. They were accompanied increased sensitivity to light and sound. She takes Nurtec as needed, and this provides benefit. The patient continues to have bilateral low back pain. This is intermittent. It is aggravated by standing, washing dishes, sweeping, and stairs. It can radiate to the anterior thighs intermittently. She denies numbness. She states she has a, tingling in my feet every now and then. She states her bilateral knees feel weak but otherwise denies lower extremity weakness. She states she has been told her bilateral knees are, bone on bone. She uses a cane and denies any recent falls. The patient reports intermittent tingling in the bilateral palms (left more prominent than right). She also states sometimes her fingers just hurt to move. She denies numbness or sensory disturbance in the proximal upper extremities. She reports mild hand weakness and reports difficulty opening a jar or bottle of pop at times. She has medial posterior neck pain. This can radiate to the shoulders intermittently. She states her neck pain feels like a, big old ball there. She states pain management referred her to the [facility] where they are doing injections and therapy. She denies any further concerns. The patient states she has a history of 1 isolated seizure which occurred in 2003. Details surrounding this are unclear. She denies any seizure-like activity or loss of conscious since the prior neurology appointment. Review of Systems Constitutional: Positive for fatigue. Negative for appetite change, chills, diaphoresis, fever and unexpected weight change. Negative for jaw claudication HENT: Negative for trouble swallowing and voice change. Eyes: Denies visual change, double vision, or loss of vision Respiratory: Negative for cough, shortness of breath and wheezing. Cardiovascular: Negative for chest pain and palpitations. Gastrointestinal: Negative for abdominal pain, blood in stool and vomiting. Musculoskeletal: Positive for arthralgias and back pain (low back). Negative for gait problem and myalgias. Positive for bilateral knee pain Neurological: Positive for weakness and headaches (accompanied by photophobia and phonophobia). Negative for dizziness, tremors, seizures, syncope, facial asymmetry, speech difficulty, light-headedness and numbness. Positive for paresthesias. Negative for saddle anesthesia. Psychiatric/Behavioral: Negative for confusion, hallucinations and suicidal ideas. Positive for history of anxiety and depression Past Medical History: Diagnosis Date Anxiety Backache Benign intracranial hypertension Blurred vision Common migraine (CMS/HCC) Depression (CMS/HCC) Diplopia Disturbance of skin sensation Fibromyalgia Headache Intractable migraine without aura (CMS/HCC) Obesity Obstructive sleep apnea Pain in joint pelvic region and thigh Pain in limb Peripheral neuropathy Seizure disorder (CMS/HCC) Tension type headache Past Surgical History: Procedure Laterality Date BACK SURGERY CARPAL TUNNEL RELEASE ENDOMETRIAL ABLATION OTHER SURGICAL HISTORY Lumbar radiofrequency ablation TUBAL LIGATION Family History Problem Relation Name Age of Onset Depression Other Hyperlipidemia Other Migraines Other Social History Tobacco Use Smoking status: Never Smokeless tobacco: Never Substance Use Topics Alcohol use: Never Allergies: Aspirin and Wound dressing adhesive Vitals: 03/04/24 1508 BP: 132/86 Pulse: 103 SpO2: 98% Body mass index is 53.98 kg/m . weight: 355 lb Neurologic exam: Mental status and general appearance: Awake and alert with unlabored respirations. Oriented to person, place, and time. Recent and remote memory are intact. Speech is clear and fluent without aphasia. Speech is non-dysarthric. Attention and concentration are normal. Fund of knowledge is appropriate for level of education. Obese. Pleasant. Cranial nerves: CN II: Visual acuity is normal. Visual osborne full to confrontation. CN III, IV, : Pupils are equal, round, and reactive to light. Extraocular movements intact. No ptosis present. CN V: Facial sensation is normal. CN VII: Full and symmetric facial movement. CN VIII: Hearing is normal to finger rub bilaterally. CN IX and X: Palate elevates symmetrically. CN XI: Shoulder shrug is normal bilaterally. CN XII: Tongue is midline without atrophy or fasciculation. Motor: RUE strength deltoid , biceps , triceps , wrist extensors , wrist flexor , and clinical pharmacologist strength 5/5. LUE strength deltoid , biceps , triceps , wrist extensors , wrist flexor , and clinical pharmacologist strength 5/5. RLE strength iliopsoas, quadriceps, tibialis anterior, plantar flexion, and dorsiflexion strength 5/5. LLE strength iliopsoas, quadriceps, tibialis anterior, plantar flexion, and dorsiflexion strength 5/5. Tone is normal. Sensory: Sensation is intact to light touch throughout all four extremities. Sensation is intact to temperature in all extremities. Reflexes: RUE biceps reflex 1+ , brachioradialis reflex 1+. LUE biceps reflex 1+ , brachioradialis reflex 1+. RLE Knee reflex 0. LLE Knee reflex 0. Coordination: Oeorvl-kz-abck testing normal. Rapid alternating movements are normal. Gait: Normal. Review and summary of old records: EMG of the bilateral upper extremities at [facility] on 02/23/24: Normal. No evidence of a cervical motor radiculopathy, brachial plexopathy, or entrapment mononeuropathy. MRI of the lumbar spine w/o contrast on 02/25/24: Multilevel discovertebral degenerative changes similar prior examination on 02/14/21. The distal spinal cord is in adequate position without abnormality. Lower thoracic level: Unremarkable. L1-L2 and L2-L3: Mild disc bulge. Patent central canal and neural foramen. L3-L4: Mild spondylosis. Posterior disc bulge. LEFT foraminal disc protrusion. Mild central canal stenosis. Mild bilateral neural foraminal narrowing. Posterior element hypertrophy. L4-L5: Mild spondylosis. Mild anterolisthesis. Mild diffuse disc bulge. Posterior element hypertrophy. Patent neural foramen. L5-S1: No disc protrusion. Posterior element hypertrophy. Patent central canal and neural foramen. X-ray of the lumbar spine w/o contrast at [facility] on 05/19/23: No fractures or subluxation. No pathologic movement on flexion or extension. There is mild intervertebral disc height loss at L3-L4, L4-L5, and L5-S1. Facet degenerative changes are present throughout the lower lumbar spine. The sacrum and sacroiliac joints are normal. MRI of the brain w and w/o contrast at [facility] on 05/15/23: No acute intracranial process. Scattered nonenhancing T2 hyperintense white matter lesions which are nonspecific, typically attributed to prior trauma/inflammation/demyelinatio n, or chronic ischemia associated with migraine/atherosclerosis. Nasal sinus disease. MRI of the lumbar spine w/o contrast at [facility] on 02/14/21: See report for full details. At L3-L4, there is mild posterior annular bulging with moderately hypertrophic posterior elements resulting in the borderline spinal stenosis. There is mild neural foraminal encroachment bilaterally. At L4-L5, there is slight anterior spondylolisthesis at L4-L5 secondary to significant facet joint arthrosis. There is no spinal stenosis or neural foraminal encroachment at this level. At L5-S1, there is moderate facet joint arthrosis at the right L5-S1 without posterior disc osteophytosis. There is no neural foraminal encroachment bilaterally. Assessment/Plan Diagnoses and all orders for this visit: Migraine without aura and without status migrainosus, not intractable (CMS/HCC) It is my impression that the patient has chronic migraine. Onset was at 17 years of age. MRI of the brain on 05/15/23 was unremarkable for secondary headache cause. Ajovy, Aimovig, Depakote, venlafaxine, lamotrigine, and topiramate did not provide significant benefit for migraine prevention. Rizatriptan and naratriptan were minimally effective. Emgality has been effective, and Nurtec has been more effective than Ubrelvy for abortive treatment. PLAN: - Continue Emgality 120 mg subcutaneous once a month for migraine prevention - Continue Nurtec 75 mg ODT as needed for acute migraine treatment - Adequate hydration, sleep hygiene, and regular physical activity as tolerated CARLOS (obstructive sleep apnea) The patient has a history of CARLOS. CPAP use has helped reduce the frequency of her morning headaches. PLAN: - Follow up with sleep medicine for management of CARLOS - I encouraged compliance with CPAP use while asleep Lumbar radiculopathy It is my impression that the patient likely has lumbar radiculopathy. She reports bilateral low back pain with radiation to the bilateral L4 dermatomal distribution. Also, with intermittent paresthesias in the feet. She denies lower extremity weakness aside from bilateral knee weakness which I believe is likely secondary to arthritis in that location. MRI on 02/25/24 identified degenerative disc disease of the lumbar spine with mild central canal stenosis and neural foraminal narrowing at certain levels. MRI did not identify any significant stenosis in the lumbar spine. Procedural interventions including RFAs via Dr. Mejia have provided benefit for the patient's symptoms in the past. PLAN: - Follow up with pain management and the [facility] - She is taking gabapentin 400 mg by mouth three times a day (managed by outside provider) and states this provides some benefit Paresthesias The patient reports a history of bilateral carpal tunnel syndrome (CTS). She states she is status post carpal tunnel release on the right years ago with subsequent improvement in symptoms but denies history of left carpal tunnel release. The patient reports intermittent paresthesias in the median nerve territory of the bilateral hands (right more significant than left) and mild hand weakness recently. Though, [facility] EMG on 02/23/24 was normal and did not identify a cause for her symptoms. EMG revealed no evidence of CTS. Symptoms do not significantly interfere with the patient's functionality or disrupt her sleep. PLAN: - I reviewed EMG results with the patient - I recommended the use of bilateral cock-up wrist splints at bedtime if helpful for symptom management - Continue physical therapy at the [facility] Polypharmacy PLAN: - Consider dose reduction or discontinuation of any unnecessary medications with outside providers Seizure (CMS/[facility]) The patient reportedly had one seizure in the past. This occurred in 2003, and details surrounding this are unclear to me. MRI of the brain on 05/15/23 was unremarkable for epileptogenic focus, and she has seemingly been seizure-free for 20 years at this point. PLAN: - The patient is taking lamotrigine (initially prescribed for purposes other than seizure prevention), however, this is also a quality antiepileptic medication - Consider further work up if there is any concern for breakthrough seizure in the future Diagnosis and treatment options discussed in detail. All questions answered. The patient verbalizes understanding and is agreeable to the plan. Discussion in layman's terms. Follow up in the office within 2 months; sooner if needed for new or worsening symptoms. [facility] Lemus [facility] Advanced Neurology documented in this encounter [facility] 03-04-2024 Instructions Cheyanne Schilling NP - 03/04/2024 3:00 PM EST - Continue physical therapy documented in this encounter [facility] 02-19-2024 History of Present illness Narrative Images from the original note were not included. Reason for Appointment: EMG Patient: Shailesh Blake : 1970 EMG Computer: [employer] Referring Physician: Dr. Joel Jerez EMG: TIMA dishwasher busser: Wenceslao Carballo RT(R) Office Location: [place] Reason for EMG: c/o pain in bilateral hands/forearms L>R, neck pain into bilateral shoulders. Hx of CTR on right. Pt states Borderline DM. Not on blood thinners. Comments: Procedure was explained to the patient who expressed understanding. Patient appeared to have tolerated the test well despite some discomfort due to the nature of the test. documented in this encounter [facility] 02-17-2024 Telephone encounter Note Patient picked this up on 02/10 and has refills on file with the pharmacy and they said she should be able to steel pickler it uo every 30 days. [facility] 02-17-2024 Miscellaneous Notes Patient picked this up on 02/10 and has refills on file with the pharmacy and they said she should be able to steel pickler it uo every 30 days. PA request was in [facility], I did this on [facility] but got this response: Electronic prior authorization not supported as a duplicate PA was found. If requesting a dose increase or requesting above quantity limits, please submit via other methods. I prescribed Nurtec at the patient's prior appointment. She states her pharmacy dispensed one 30-day prescription to her and then no further refills. Are you able to look into this please? I did reorder the medication today. Not sure if it just needs a prior authorization. documented in this encounter [facility] 02-12-2024 Evaluation + Plan note Diagnostic Tests PendingUrine Culture 02/12/24 [facility] 02-12-2024 Hospital Discharge instructions Patient Education 02/12/2024 09:43:47 Overactive Bladder, Adult Overactive Bladder, Adult Overactive bladder is a condition in which a person has a sudden and frequent need to urinate. A person might also leak urine if he or she cannot get to the bathroom fast enough (urinary incontinence). Sometimes, symptoms can interfere with work or social activities. What are the causes? Overactive bladder is associated with poor nerve signals between your bladder and your brain. Your bladder may get the signal to empty before it is full. You may also have very sensitive muscles that make your bladder squeeze too soon. This condition may also be caused by other factors, such as: Medical conditions: ?Urinary tract infection. ?Infection of nearby tissues. ?Prostate enlargement. ?Bladder stones, inflammation, or tumors. ?Diabetes. ?Muscle or nerve weakness, especially from these conditions: ?A spinal cord injury. ?Stroke. ?Multiple sclerosis. ?Parkinson's disease. Other causes: ?Surgery on the uterus or urethra. ?Drinking too much caffeine or alcohol. ?Certain medicines, especially those that eliminate extra fluid in the body (diuretics). ?Constipation. What increases the risk? You may be at greater risk for overactive bladder if you: Are an older adult. Smoke. Are going through menopause. Have prostate problems. Have a neurological disease, such as stroke, dementia, Parkinson's disease, or multiple sclerosis (MS). Eat or drink alcohol, spicy food, caffeine, and other things that irritate the bladder. Are overweight or obese. What are the signs or symptoms? Symptoms of this condition include a sudden, strong urge to urinate. Other symptoms include: Leaking urine. Urinating 8 or more times a day. Waking up to urinate 2 or more times overnight. How is this diagnosed? This condition may be diagnosed based on: Your symptoms and medical history. A physical exam. Blood or urine tests to check for possible causes, such as infection. You may also need to see a health care provider who specializes in urinary tract problems. This is called a urologist. How is this treated? Treatment for overactive bladder depends on the cause of your condition and whether it is mild or severe. Treatment may include: Bladder training, such as: ?Learning to control the urge to urinate by following a schedule to urinate at regular intervals. ?Doing Kegel exercises to strengthen the pelvic floor muscles that support your bladder. Special devices, such as: ?Biofeedback. This uses sensors to help you become aware of your body's signals. ?Electrical stimulation. This uses electrodes placed inside the body (implanted) or outside the body. These electrodes send gentle pulses of electricity to strengthen the nerves or muscles that control the bladder. ?Women may use a plastic device, called a pessary, that fits into the vagina and supports the bladder. Medicines, such as: ?Antibiotics to treat bladder infection. ?Antispasmodics to stop the bladder from releasing urine at the wrong time. ?Tricyclic antidepressants to relax bladder muscles. ?Injections of botulinum toxin type A directly into the bladder tissue to relax bladder muscles. Surgery, such as: ?A device may be implanted to help manage the nerve signals that control urination. ?An electrode may be implanted to stimulate electrical signals in the bladder. ?A procedure may be done to change the shape of the bladder. This is done only in very severe cases. Follow these instructions at home: Eating and drinking Make diet or lifestyle changes recommended by your health care provider. These may include: ?Drinking fluids throughout the day and not only with meals. ?Cutting down on caffeine or alcohol. ?Eating a healthy and balanced diet to prevent constipation. This may include: ?Choosing foods that are high in fiber, such as beans, whole grains, and fresh fruits and vegetables. ?Limiting foods that are high in fat and processed sugars, such as fried and sweet foods. Lifestyle Lose weight if needed. Do not use any products that contain nicotine or tobacco. These include cigarettes, chewing tobacco, and vaping devices, such as e-cigarettes. If you need help quitting, ask your health care provider. General instructions Take dqfw-osk-ejtjkqb and prescription medicines only as told by your health care provider. If you were prescribed an antibiotic medicine, take it as told by your health care provider. Do not stop taking the antibiotic even if you start to feel better. Use any implants or pessary as told by your health care provider. If needed, wear pads to absorb urine leakage. Keep a log to track how much and when you drink, and when you need to urinate. This will help your health care provider monitor your condition. Keep all follow-up visits. This is important. Contact a health care provider if: You have a fever or chills. Your symptoms do not get better with treatment. Your pain and discomfort get worse. You have more frequent urges to urinate. Get help right away if: You are not able to control your bladder. Summary Overactive bladder refers to a condition in which a person has a sudden and frequent need to urinate. Several conditions may lead to an overactive bladder. Treatment for overactive bladder depends on the cause and severity of your condition. Making lifestyle changes, doing Kegel exercises, keeping a log, and taking medicines can help with this condition. This information is not intended to replace advice given to you by your health care provider. Make sure you discuss any questions you have with your health care provider. Document Revised: 01/01/2021 Document Reviewed: 01/01/2021 [employer] Patient Education 2023 [employer] Follow Up Care 07/29/2023 15:25:11 With:KAYY MIRAMONTES PA-C, URL Address: [place] [address] Business (1) When: Unknown Comments:pending results of imaging/testing, will call with next steps [facility] 02-12-2024 Note Patient Education Obstetrics and Gynecology Overactive Bladder, Adult Overactive bladder is a condition in which a person has a sudden and frequent need to urinate. A person might also leak urine if he or she cannot get to the bathroom fast enough (urinary incontinence). Sometimes, symptoms can interfere with work or social activities. What are the causes? Overactive bladder is associated with poor nerve signals between your bladder and your brain. Your bladder may get the signal to empty before it is full. You may also have very sensitive muscles that make your bladder squeeze too soon. This condition may also be caused by other factors, such as: ? Medical conditions: ? Urinary tract infection. ? Infection of nearby tissues. ? Prostate enlargement. ? Bladder stones, inflammation, or tumors. ? Diabetes. ? Muscle or nerve weakness, especially from these conditions: ? A spinal cord injury. ? Stroke. ? Multiple sclerosis. ? Parkinson's disease. ? Other causes: ? Surgery on the uterus or urethra. ? Drinking too much caffeine or alcohol. ? Certain medicines, especially those that eliminate extra fluid in the body (diuretics). ? Constipation. What increases the risk? You may be at greater risk for overactive bladder if you: ? Are an older adult. ? Smoke. ? Are going through menopause. ? Have prostate problems. ? Have a neurological disease, such as stroke, dementia, Parkinson's disease, or multiple sclerosis (MS). ? Eat or drink alcohol, spicy food, caffeine, and other things that irritate the bladder. ? Are overweight or obese. What are the signs or symptoms? Symptoms of this condition include a sudden, strong urge to urinate. Other symptoms include: ? Leaking urine. ? Urinating 8 or more times a day. ? Waking up to urinate 2 or more times overnight. How is this diagnosed? This condition may be diagnosed based on: ? Your symptoms and medical history. ? A physical exam. ? Blood or urine tests to check for possible causes, such as infection. You may also need to see a health care provider who specializes in urinary tract problems. This is called a urologist. How is this treated? Treatment for overactive bladder depends on the cause of your condition and whether it is mild or severe. Treatment may include: ? Bladder training, such as: ? Learning to control the urge to urinate by following a schedule to urinate at regular intervals. ? Doing Kegel exercises to strengthen the pelvic floor muscles that support your bladder. ? Special devices, such as: ? Biofeedback. This uses sensors to help you become aware of your body's signals. ? Electrical stimulation. This uses electrodes placed inside the body (implanted) or outside the body. These electrodes send gentle pulses of electricity to strengthen the nerves or muscles that control the bladder. ? Women may use a plastic device, called a pessary, that fits into the vagina and supports the bladder. ? Medicines, such as: ? Antibiotics to treat bladder infection. ? Antispasmodics to stop the bladder from releasing urine at the wrong time. ? Tricyclic antidepressants to relax bladder muscles. ? Injections of botulinum toxin type A directly into the bladder tissue to relax bladder muscles. ? Surgery, such as: ? A device may be implanted to help manage the nerve signals that control urination. ? An electrode may be implanted to stimulate electrical signals in the bladder. ? A procedure may be done to change the shape of the bladder. This is done only in very severe cases. Follow these instructions at home: Eating and drinking ? Make diet or lifestyle changes recommended by your health care provider. These may include: ? Drinking fluids throughout the day and not only with meals. ? Cutting down on caffeine or alcohol. ? Eating a healthy and balanced diet to prevent constipation. This may include: ? Choosing foods that are high in fiber, such as beans, whole grains, and fresh fruits and vegetables. ? Limiting foods that are high in fat and processed sugars, such as fried and sweet foods. Lifestyle ? Lose weight if needed. ? Do not use any products that contain nicotine or tobacco. These include cigarettes, chewing tobacco, and vaping devices, such as e-cigarettes. If you need help quitting, ask your health care provider. General instructions ? Take tmoe-hln-bdohqnb and prescription medicines only as told by your health care provider. ? If you were prescribed an antibiotic medicine, take it as told by your health care provider. Do not stop taking the antibiotic even if you start to feel better. ? Use any implants or pessary as told by your health care provider. ? If needed, wear pads to absorb urine leakage. ? Keep a log to track how much and when you drink, and when you need to urinate. This will help your health care (more content not included)... [facility] 02-11-2024 Telephone encounter Note PA request was in [facility], I did this on [facility] but got this response: Electronic prior authorization not supported as a duplicate PA was found. If requesting a dose increase or requesting above quantity limits, please submit via other methods. [facility] 02-11-2024 Telephone encounter Note I prescribed Nurtec at the patient's prior appointment. She states her pharmacy dispensed one 30-day prescription to her and then no further refills. Are you able to look into this please? I did reorder the medication today. Not sure if it just needs a prior authorization. [facility] 02-11-2024 History of Present illness Narrative Images from the original note were not included. Cheyanne Schilling NP Chief Complaint Patient presents with Migraine Back Pain Subjective Shailesh Blake is a 53 y.o. female. HPI The patient presents today for follow up. At the prior appointment, Ubrelvy was discontinued, and Nurtec was prescribed. The patient states she received a 30-day supply of Nurtec from her pharmacy but then received no further refills. She states she was told by her primary care provider that she is a, borderline diabetic. The patient has had approximately 3 to 5 migraines per month recently. These can be located in the temporal region on either side. Severity varies. She describes them as pounding. They are accompanied by nausea and increased sensitivity to light and sound. They are not accompanied by vomiting, weakness, numbness, or paresthesias. They are aggravated by movement and physical activity. They last all day. The patient states she lays in bed and cries when she has a migraine. She does not take any piss-opd-qylphmj medications for her migraines because she is fearful to do so. She states Nurtec reduced her headache pain to a tolerable level when she took it. The patient continues to have low back pain. This is located in the medial back. It is intermittent. It is aggravated by certain movements and physical activity. It can radiate to the anterior thighs intermittently. She denies numbness but reports a tingling sensation in her toes at times. She states her bilateral knees feel weak otherwise denies lower extremity weakness. She denies saddle anesthesia new onset bowel/bladder dysfunction. She has noticed intermittent tingling in the palms of the bilateral hands recently (right more significant than left). She denies numbness or sensory disturbance in the proximal upper extremities. She denies hand weakness. No further concerns reported. The patient states she has a history of 1 isolated seizure which occurred in 2003. Details surrounding this are unclear. She denies any seizure-like activity or loss of conscious since the prior neurology appointment. Review of Systems Constitutional: Positive for fatigue. Negative for appetite change, chills, diaphoresis, fever and unexpected weight change. Negative for jaw claudication HENT: Negative for trouble swallowing and voice change. Eyes: Denies visual change, double vision, or loss of vision Respiratory: Negative for cough, shortness of breath and wheezing. Cardiovascular: Negative for chest pain and palpitations. Gastrointestinal: Negative for abdominal pain, blood in stool and vomiting. Musculoskeletal: Positive for arthralgias and back pain (low back). Negative for gait problem and myalgias. Positive for bilateral knee pain Neurological: Positive for weakness and headaches (accompanied by photophobia, phonophobia, and nausea). Negative for dizziness, tremors, seizures, syncope, facial asymmetry, speech difficulty, light-headedness and numbness. Positive for paresthesias Psychiatric/Behavioral: Negative for confusion, hallucinations and suicidal ideas. Positive for history of anxiety and depression Medication List albuterol HFA 90 mcg/act inhaler benztropine 0.5 MG tablet; Commonly known as: Cogentin busPIRone 10 MG tablet; Commonly known as: Buspar cetirizine 10 MG tablet; Commonly known as: Zyrtec Allergy cyanocobalamin 1000 MCG tablet; Commonly known as: Vitamin B-12 diclofenac sodium 1% gel Emgality 120 MG/ML auto-injector; Generic drug: galcanezumab; Inject 1 Syringe (120 mg) under the skin every 30 (thirty) days famotidine 50 MG tablet; Commonly known as: Pepcid fluticasone 50 MCG/ACT nasal spray; Commonly known as: Flonase gabapentin 400 MG capsule; Commonly known as: Neurontin lamoTRIgine 200 MG tablet; Commonly known as: LaMICtal lamoTRIgine 100 MG tablet; Commonly known as: LaMICtal metformin 500 MG tablet; Commonly known as: Glucophage Multi Vitamin tablet omeprazole [address] capsule; Commonly known as: PriLOSEC Rexulti 4 MG tablet; Generic drug: Brexpiprazole simvastatin 40 MG tablet; Commonly known as: Zocor spironolactone 50 MG tablet; Commonly known as: Aldactone venlafaxine XR 150 MG 24 hr capsule; Commonly known as: Effexor XR Past Medical History: Diagnosis Date Anxiety Backache Benign intracranial hypertension Blurred vision Common migraine (CMS/HCC) Depression (CMS/HCC) Diplopia Disturbance of skin sensation Fibromyalgia Headache Intractable migraine without aura (CMS/HCC) Obesity Obstructive sleep apnea Pain in joint pelvic region and thigh Pain in limb Peripheral neuropathy Seizure disorder (CMS/HCC) Tension type headache Past Surgical History: Procedure Laterality Date BACK SURGERY CARPAL TUNNEL RELEASE ENDOMETRIAL ABLATION OTHER SURGICAL HISTORY Lumbar radiofrequency ablation TUBAL LIGATION Family History Problem Relation Name Age of Onset Depression Other Hyperlipidemia Other Migraines Other Social History Tobacco Use Smoking status: Never Smokeless tobacco: Never Substance Use Topics Alcohol use: Never Allergies: Aspirin and Wound dressing adhesive Vitals: 02/11/24 1034 BP: 138/80 Pulse: 76 SpO2: 98% Body mass index is 53.28 kg/m . weight: 350 lb 6.4 oz Neurologic exam: Mental status and general appearance: Awake and alert with unlabored respirations. Oriented to person, place, and time. Recent and remote memory are intact. Speech is clear and fluent without aphasia. Attention and concentration are normal. Fund of knowledge is appropriate for level of education. Obese. Cranial nerves: CN II: Visual acuity is normal. Visual osborne full to confrontation. CN III, IV, : Pupils are equal, round, and reactive to light. Extraocular movements intact. No ptosis present. CN V: Facial sensation is normal. CN VII: Full and symmetric facial movement. CN VIII: Hearing is normal to finger rub bilaterally. CN IX and X: Palate elevates symmetrically. CN XI: Shoulder shrug is normal bilaterally. CN XII: Tongue is midline without atrophy or fasciculation. Motor: RUE strength deltoid , biceps , triceps , wrist extensors , wrist flexor , and clinical pharmacologist strength 5/5. LUE strength deltoid , biceps , triceps , wrist extensors , wrist flexor , and clinical pharmacologist strength 5/5. RLE strength iliopsoas, quadriceps, tibialis anterior, plantar flexion, and dorsiflexion strength 5/5. LLE strength iliopsoas, quadriceps, tibialis anterior, plantar flexion, and dorsiflexion strength 5/5. Tone is normal. Sensory: Sensation is intact to light touch throughout all four extremities. Sensation is intact to temperature in all extremities. Reflexes: RUE biceps reflex 1+ , brachioradialis reflex 1+. LUE biceps reflex 1+ , brachioradialis reflex 1+. RLE Knee reflex 0. LLE Knee reflex 0. Coordination: Aeijsl-yk-otmv testing normal. Rapid alternating movements are normal. Gait: Normal. Review and summary of old records: X-ray of the lumbar spine w/o contrast at [facility] on 05/19/23: No fractures or subluxation. No pathologic movement on flexion or extension. There is mild intervertebral disc height loss at L3-L4, L4-L5, and L5-S1. Facet degenerative changes are present throughout the lower lumbar spine. The sacrum and sacroiliac joints are normal. MRI of the brain w and w/o contrast at [facility] on 05/15/23: No acute intracranial process. Scattered nonenhancing T2 hyperintense white matter lesions which are nonspecific, typically attributed to prior trauma/inflammation/demyelinatio n, or chronic ischemia associated with migraine/atherosclerosis. Nasal sinus disease. MRI of the lumbar spine w/o contrast at [facility] on 10/20/21: See report for full details. At L3-L4, there is mild posterior annular bulging with moderately hypertrophic posterior elements resulting in the borderline spinal stenosis. There is mild neural foraminal encroachment bilaterally. At L4-L5, there is slight anterior spondylolisthesis at L4-L5 secondary to significant facet joint arthrosis. There is no spinal stenosis or neural foraminal encroachment at this level. At L5-S1, there is moderate facet joint arthrosis at the right L5-S1 without posterior disc osteophytosis. There is no neural foraminal encroachment bilaterally. Assessment/Plan Diagnoses and all orders for this visit: Migraine without aura and without status migrainosus, not intractable (CMS/HCC) It is my impression that the patient has chronic migraine with onset at 17 years of age. MRI of the brain on 05/15/23 was unremarkable for secondary headache cause. MRI did reveal nonspecific white matter changes which may be related to migraine or microvascular ischemic changes. Ajovy, Aimovig, Depakote, venlafaxine, lamotrigine, and topiramate did not provide significant benefit for migraine prevention. Rizatriptan and naratriptan were minimally effective. Emgality has been effective, and she states Nurtec is more effective than Ubrelvy for abortive treatment. PLAN: - Continue Emgality 120 mg subcutaneous once a month - Continue Nurtec 75 mg ODT as needed for acute migraine treatment. I will have staff look into this prescription, as the patient states she only received one 30-day fill from her pharmacy - Adequate hydration, sleep hygiene, and regular physical activity as tolerated CARLOS (obstructive sleep apnea) The patient has a history of CARLOS. CPAP use has helped reduce the frequency of her morning headaches. PLAN: - Follow up with sleep medicine for ongoing management - I encouraged compliance with CPAP machine while asleep Lumbar radiculopathy It is my impression that the patient has lumbar radiculopathy. She reports bilateral low back pain with radiation to the bilateral L4 dermatomal distribution. Also, with intermittent paresthesias in the toes. She denies any red flag symptoms including saddle anesthesia, bowel/bladder dysfunction, or lower extremity weakness. Procedural interventions including RFAs via Dr. Mejia provided benefit in the past. She states pain management told her to follow up as needed, but she continues to have back pain. PLAN: - I advised the patient to call and schedule an appointment with pain management to discuss ongoing treatment and consideration of further procedural interventions to manage her symptoms. She verbalizes understanding - She is taking gabapentin 400 mg by mouth three times a day (managed by outside provider) - Red flag symptoms of spinal cord compression/myelopathy were reviewed with the patient. The patient understands to seek emergent care in the emergency department if she develops any of these Carpal tunnel syndrome, bilateral The patient reports a history of bilateral carpal tunnel syndrome, though there is no EMG confirmation of this as far as I can tell. She states she is status post carpal tunnel release on the right years ago with subsequent improvement in symptoms. She states she declined to undergo left carpal tunnel release. The patient reports intermittent paresthesias in the median nerve territory of the bilateral hands recently (right more significant than left). She denies focal weakness, and symptoms do not significantly interfere with her functionality. PLAN: - EMG of the bilateral upper extremities - I recommended the use of bilateral cock-up wrist splints at bedtime. The patient has not tried wrist splints - Consider referral to orthopedic surgery in the future if symptoms persist or worsen with conservative measures Polypharmacy PLAN: - Consider dose reduction or discontinuation of any unnecessary medications with outside providers Seizure ([facility]) The patient reportedly had one seizure in the past (in 2003), though details surrounding this are unclear to me. MRI of the brain on 05/15/23 was unremarkable for epileptogenic focus, and she has seemingly been seizure-free for 20 years. PLAN: - The patient is taking lamotrigine (initially prescribed for purposes other than seizure prevention), however, this is also a quality antiepileptic medication Diagnosis and treatment options discussed in detail. All questions answered. The patient verbalizes understanding and is agreeable to the plan. Discussion in layman's terms. Follow up in the office within 1 months; sooner if needed for new or worsening symptoms. Cheyanne Schilling NP [facility] Advanced Neurology documented in this encounter [facility] 02-11-2024 Instructions Cheyanne Schilling NP - 02/11/2024 10:40 AM EDT - EMG of the bilateral upper extremities - Will prescribe bilateral cock-up wrist splints to wear at bedtime - Follow up with pain management for back pain documented in this encounter [facility] 07-29-2023 Hospital Discharge instructions Patient Education 07/29/2023 15:05:16 Overactive Bladder, Adult Overactive Bladder, Adult Overactive bladder is a condition in which a person has a sudden and frequent need to urinate. A person might also leak urine if he or she cannot get to the bathroom fast enough (urinary incontinence). Sometimes, symptoms can interfere with work or social activities. What are the causes? Overactive bladder is associated with poor nerve signals between your bladder and your brain. Your bladder may get the signal to empty before it is full. You may also have very sensitive muscles that make your bladder squeeze too soon. This condition may also be caused by other factors, such as: Medical conditions: ?Urinary tract infection. ?Infection of nearby tissues. ?Prostate enlargement. ?Bladder stones, inflammation, or tumors. ?Diabetes. ?Muscle or nerve weakness, especially from these conditions: ?A spinal cord injury. ?Stroke. ?Multiple sclerosis. ?Parkinson's disease. Other causes: ?Surgery on the uterus or urethra. ?Drinking too much caffeine or alcohol. ?Certain medicines, especially those that eliminate extra fluid in the body (diuretics). ?Constipation. What increases the risk? You may be at greater risk for overactive bladder if you: Are an older adult. Smoke. Are going through menopause. Have prostate problems. Have a neurological disease, such as stroke, dementia, Parkinson's disease, or multiple sclerosis (MS). Eat or drink alcohol, spicy food, caffeine, and other things that irritate the bladder. Are overweight or obese. What are the signs or symptoms? Symptoms of this condition include a sudden, strong urge to urinate. Other symptoms include: Leaking urine. Urinating 8 or more times a day. Waking up to urinate 2 or more times overnight. How is this diagnosed? This condition may be diagnosed based on: Your symptoms and medical history. A physical exam. Blood or urine tests to check for possible causes, such as infection. You may also need to see a health care provider who specializes in urinary tract problems. This is called a urologist. How is this treated? Treatment for overactive bladder depends on the cause of your condition and whether it is mild or severe. Treatment may include: Bladder training, such as: ?Learning to control the urge to urinate by following a schedule to urinate at regular intervals. ?Doing Kegel exercises to strengthen the pelvic floor muscles that support your bladder. Special devices, such as: ?Biofeedback. This uses sensors to help you become aware of your body's signals. ?Electrical stimulation. This uses electrodes placed inside the body (implanted) or outside the body. These electrodes send gentle pulses of electricity to strengthen the nerves or muscles that control the bladder. ?Women may use a plastic device, called a pessary, that fits into the vagina and supports the bladder. Medicines, such as: ?Antibiotics to treat bladder infection. ?Antispasmodics to stop the bladder from releasing urine at the wrong time. ?Tricyclic antidepressants to relax bladder muscles. ?Injections of botulinum toxin type A directly into the bladder tissue to relax bladder muscles. Surgery, such as: ?A device may be implanted to help manage the nerve signals that control urination. ?An electrode may be implanted to stimulate electrical signals in the bladder. ?A procedure may be done to change the shape of the bladder. This is done only in very severe cases. Follow these instructions at home: Eating and drinking Make diet or lifestyle changes recommended by your health care provider. These may include: ?Drinking fluids throughout the day and not only with meals. ?Cutting down on caffeine or alcohol. ?Eating a healthy and balanced diet to prevent constipation. This may include: ?Choosing foods that are high in fiber, such as beans, whole grains, and fresh fruits and vegetables. ?Limiting foods that are high in fat and processed sugars, such as fried and sweet foods. Lifestyle Lose weight if needed. Do not use any products that contain nicotine or tobacco. These include cigarettes, chewing tobacco, and vaping devices, such as e-cigarettes. If you need help quitting, ask your health care provider. General instructions Take mqzv-ixq-uecvdmh and prescription medicines only as told by your health care provider. If you were prescribed an antibiotic medicine, take it as told by your health care provider. Do not stop taking the antibiotic even if you start to feel better. Use any implants or pessary as told by your health care provider. If needed, wear pads to absorb urine leakage. Keep a log to track how much and when you drink, and when you need to urinate. This will help your health care provider monitor your condition. Keep all follow-up visits. This is important. Contact a health care provider if: You have a fever or chills. Your symptoms do not get better with treatment. Your pain and discomfort get worse. You have more frequent urges to urinate. Get help right away if: You are not able to control your bladder. Summary Overactive bladder refers to a condition in which a person has a sudden and frequent need to urinate. Several conditions may lead to an overactive bladder. Treatment for overactive bladder depends on the cause and severity of your condition. Making lifestyle changes, doing Kegel exercises, keeping a log, and taking medicines can help with this condition. This information is not intended to replace advice given to you by your health care provider. Make sure you discuss any questions you have with your health care provider. Document Revised: 01/01/2021 Document Reviewed: 01/01/2021 [employer] Patient Education 2022 [employer] Follow Up Care 06/06/2023 14:46:16 With:KAYY MIRAMONTES PA-C, URL Address: [address] [place] [phone] When:Within 6 Month(s) Comments:Pt to call and cancel if asymptomatic. [facility] 07-15-2023 Hospital Discharge instructions Patient Education 07/15/2023 08:51:38 EU - Cystoscopy with Botox Injection Discharge Instructions (CUSTOM) Cystoscopy with Botox injection Voiding after the procedure: there may be some pain, burning, urgency, frequency and blood tinged urine following the procedure. These symptoms usually resolve within 2-5 days. Drink the amount of fluid it takes to keep the urine pink to yellow or clear in color. Drinking enough water and fluids will help to ease any discomfort after your procedure. It may take a few days to a week to notice a gradual improvement in the overactive bladder symptoms. If you are having problems that seem out of the ordinary, please call. If unable to contact your physician and you feel it is an emergency, go to the nearest emergency room or call 911 Do not lift more than fifteen pounds for 1-2 days. If you see a lot of blood, you probably did too much. Diet you may resume your normal diet. Pain control You may take extra strength Tylenol or Motrin for discomfort. Call if you have a fever over 100 degrees. Follow Up Care 06/06/2023 14:37:52 With:Hermilo GASTON Address: [facility] [address] [place] [address]- Business (1) When:07/29/2023 08:51:07 Comments:With Whit Kulwinder and [facility] 07-15-2023 Note [id number] [facility] 07-15-2023 Note Custom Cystoscopy with Botox [...] you have a fever over 100 degrees. [facility] 06-05-2023 Evaluation note Encounter Date Diagnosis Assessment Notes May, Fibromyalgia (ICD-10 - M79.7) [facility] Other [id number] [facility] Discharge instructions Patient Education 05/28/2023 [...] including vitamins, herbs, eye drops, creams, and jzio-zrs-lnlyztm medicines. Any problems you or family members [...] provider tells you to take them. Taking eihg-uml-lvbewts medicines, vitamins, herbs, and supplements. General instructions [...] Follow these instructions at home: Medicines Take ybzp-fqq-zsrwkak and prescription medicines only as told by [...] provider. Document Revised: 10/19/2021 Document Reviewed: 10/19/2021 [employer] Patient Education 2022 [employer] 05/28/2023 16:17:08 Urinary Incontinence Urinary Incontinence Urinary [...] (electrical nerve stimulation). ?For women, using a medical equipment repair technician to prevent urine leaks. This is a [...] right after experiencing incontinence. General instructions Take jdem-iyg-youctfk and prescription medicines only as told by [...] important. Where to find more information [employer] [place] of [employer] and Digestive and Kidney Diseases: www.niddk.nih.gov [employer]: www.urologyhealth.org Contact a health care [...] provider. Document Revised: 11/17/2020 Document Reviewed: 11/17/2020 [employer] Patient Education 2022 [employer] Follow Up Care 04/22/2023 13:23:48 With:KULWINDER MOCTEZUMA, KAYY Buenrostro, URL Address: [address] [place], [place] [address]anali Kwok [facility] [place] [address] [phone] When: Unknown Comments:sched cysto or Botox [facility] Sue 01-22-2024 Evaluation note* Encounter Date Diagnosis [...] (ICD-10 - M79.7) Continue medications as prescribed [facility] Other 12-13-2023 Evaluation note* Encounter Date Diagnosis [...] medication related side effects. UDS performed through [facility] today, will await confirmatory results. [facility] Other 09-28-2023 Evaluation note* Encounter Date Diagnosis [...] pain (ICD-10 - G89.29) Continue taking medications [facility] Other 09-14-2023 Evaluation note* Encounter Date Diagnosis [...] 400 mg, two to three times daily [facility] Other 07-13-2023 Evaluation note* Encounter Date Diagnosis [...] close to needing a refill of Gabapentin [facility] Other 07-06-2023 Evaluation note* Encounter Date Diagnosis [...] Stable. Oct, Sacroiliitis (ICD-10 - M46.1) Stable. [facility] Other 04-12-2023 Evaluation note* Encounter Date Diagnosis [...] - M46.1) Follow up in 4 weeks [facility] Other 03-29-[facility]* Encounter Date Diagnosis Assessment [...] Proceed with updated imaging of the shoulder. [facility] Other 01-20-2023 Evaluation note* Encounter Date Diagnosis [...] Proceed with updated imaging of the shoulder. [facility] Other 12-09-2022 Evaluation note* Encounter Date Diagnosis [...] schedule her next appointment to refill this. [facility] Other 10-13-2022 Evaluation note* Encounter Date Diagnosis [...] M47.817) Stable. Continue with current treatment plan. [facility] Other 09-23-2022 Evaluation note* Encounter Date Diagnosis [...] - G89.29) Continue taking Gabapentin as prescribed. [facility] Other 08-22-2022 Evaluation note* Encounter Date Diagnosis [...] - G89.29) Continue taking Gabapentin as prescribed. [facility] Other 06-20-2022 Evaluation note* Encounter Date Diagnosis [...] to use as tolerated for pain relief. [facility] Other 06-14-2022 Evaluation + Plan note Diagnostic Tests Pending * Urine Culture 10/09/21 [facility]05-19-2022 Evaluation note* Encounter Date Diagnosis Assessment Notes [...] time. August, Chronic pain (ICD-10 - G89.29) [facility] Other 04-14-2022 Evaluation + Plan note Diagnostic Tests Pending * Urine Culture 08/09/21 [facility]04-14-2022 Hospital Discharge instructions Patient Education 08/09/2021 11:27:41 [...] fried and sweet foods. General instructions Take iwqd-qsy-spvtypd and prescription medicines only as told by [...] 02/08/2010 Document Revised: 08/05/2019 Document Reviewed: 04/30/2018 [employer] Patient Education 2019 [employer] Follow Up Care 07/11/2021 12:59:04 With:KULWINDER MOCTEZUMA, KAYY Buenrostro, URL Address: [address] [place] [address] [phone] When: Unknown [facility] Sue 04-07-2022 Evaluation note* [...] time. Jul, Chronic pain (ICD-10 - G89.29) [facility] Other 03-14-2022 Evaluation note* Encounter Date Diagnosis [...] (ICD-10 - G89.29) Continue medications as prescribed [facility] Other 03-09-2022 Evaluation note* Encounter Date Diagnosis Assessment Notes Treatment Notes Treatment Clinical Notes Jun, GERD (gastroesophageal reflux disease) (ICD-10 - K21.9) Jun, Irritable bowel syndrome with constipation (ICD-10 - K58.1) Jun, Morbid obesity (ICD-10 - E66.01) [facility] Other 02-10-2022 Evaluation note* Encounter Date Diagnosis [...] (ICD-10 - G89.29) Continue medications as prescribed [facility] Other 12-09-2021 Evaluation note* Encounter Date Diagnosis [...] (ICD-10 - G89.29) Continue medications as prescribed [facility] Other [id number] Evaluation note* Encounter Date Diagnosis Assessment Notes [...] (ICD-10 - G89.29) Continue medications as prescribed [facility] Other Evaluation + Plan note No data available for this section [facility] Sue Evaluation + Plan note Future Appointments Appointment Date:07/15/2023 08:30:00 AM Scheduled Provider: Location:[facility] Appointment Type:Urology FT Appointment Date:07/29/2023 02:40:00 PM Scheduled Provider:KAYY MIRAMONTES PA-C Location:[facility] Appointment Type:URO Office Visit Diagnostic Tests Pending * [facility] App[facility]ments Appointment Date:07/15/2023 08:30:00 AM Scheduled Provider: Location:[facility] Appointment Type:Urology FT Appointment Date:07/29/2023 02:40:00 PM Scheduled Provider:KAYY MIRAMONTES PA-C Location:[facility] Appointment Type:URO Office Visit [facility] evaluation + Plan note Future Appointments Appointment Date:07/29/2023 02:40:00 PM Scheduled Provider:KAYY MIRAMONTES PA-C Location:[facility]ments Appointment Date:02/03/2024 08:20:00 AM Scheduled Provider:KAYY MIRAMONTES PA-C Location:[facility] Appointment Type:URO Office Visit [facility] evaluation noteNorth [employer] Other evaluation noteNo InformationNo[employer] Other evaluation noteNortAd[employer] Other evaluation noteNo assessment information available [facility] Work Phone: evaluation note* Diagnosis Onset Date Resolution Status Chronic pain acute Fibromyalgia acute Lumbosacral spondylosis without myelopathy acute Sacroiliitis acute [facility] Work Phone: evaluation note* Diagnosis Onset Date Resolution Status Chronic pain acute Fibromyalgia acute Lumbosacral spondylosis without myelopathy acute Sacroiliitis acute Chronic pain acute Fibromyalgia acute Lumbosacral spondylosis without myelopathy acute Osteoarthritis of both knees acute Sacroiliitis acute Thoracic spondylosis acute [facility] Work Phone: evaluation note* Diagnosis Onset Date Resolution Status Chronic pain acute Fibromyalgia acute Lumbosacral spondylosis without myelopathy acute Osteoarthritis of both knees acute Sacroiliitis acute [facility] Work Phone: Evaluation note* Diagnosis Onset Date Resolution Status Chronic pain acute Fibromyalgia acute Lumbosacral spondylosis without myelopathy acute Osteoarthritis of both knees acute Sacroiliitis acute Chronic pain acute Lumbar radiculopathy acute Primary osteoarthritis of left knee acute Primary osteoarthritis of right knee acute [facility] Work Phone: Evaluation note* Diagnosis Onset Date Resolution Status Chronic pain acute Fibromyalgia acute Lumbosacral spondylosis without myelopathy acute Osteoarthritis of both knees acute Sacroiliitis acute Chronic pain acute Lumbar radiculopathy acute Primary osteoarthritis of left knee acute Primary osteoarthritis of right knee acute Chronic pain acute Primary osteoarthritis of left knee acute Primary osteoarthritis of right knee acute [facility] Work Phone: Evaluation note* Diagnosis Migraine without aura and without status migrainosus, not intractable ([facility])- Primary CARLOS (obstructive sleep apnea) Obstructive sleep apnea (adult) (pediatric) Carpal tunnel syndrome, bilateral Carpal tunnel syndrome Polypharmacy Issue of repeat prescriptions Seizure ([facility]) Other [facility] Diagnosis Paresthesia- Primary Disturbance of skin sensation [facility] Diagnosis Migraine without aura and without status migrainosus, not intractable ([facility])- Primary CARLOS (obstructive sleep apnea) Obstructive sleep apnea (adult) (pediatric) Lumbar radiculopathy Thoracic or lumbosacral neuritis or radiculitis, unspecified Paresthesias Disturbance of skin sensation Polypharmacy Issue of repeat prescriptions Seizure ([facility]) Other convulsions [facility] Diagnosis CARLOS (obstructive sleep apnea)- Primary Obstructive sleep apnea (adult) (pediatric) Hypoxia Hypoxemia Hypersomnia Hypersomnia, unspecified Obesity due to excess calories, unspecified class, unspecified whether serious comorbidity present Snoring Other dyspnea and respiratory abnormality documented in this encounter [facility]* Diagnosis Migraine without aura and without status migrainosus, not intractable ([facility]/HCC)- Primary CARLOS (obstructive sleep apnea) Obstructive sleep apnea (adult) (pediatric) Lumbar radiculopathy Thoracic or lumbosacral neuritis or radiculitis, unspecified Degeneration of intervertebral disc of lumbar region, unspecified whether pain present Paresthesias Disturbance of skin sensation Polypharmacy Issue of repeat prescriptions Seizure (CMS/HCC) Other convulsions documented in this encounter [facility] general Narrative - ReportedNoJuicyCanvas [employer] Other History general Narrative - Reported* Type [...] History ENDOMETRIAL ABLATION Surgical History WISDOM TEETH [employer] Other History general Narrative - ReportedNoJuicyCanvas [employer] Other History general Narrative - ReportedNoSylvan Source Other Hisjkpr general Narrative - Reported* Type Description Date [...] History WISDOM TEETH Hospitalization History see above [employer] Other Hospital Discharge instructions No data available for this section [facility] No data available for this section [facility] [employer] Summary Purpose Family History No Family History Records Found Relationship Condition Age at Onset Recorded Date/T susan father Malignant neoplasm of prostate Unknown brother Schizophrenia Unknown Not Specified Dementia Unknown Relationship Condition Age at Onset Recorded Date/T susan father Malignant neoplasm of prostate Unknown brother Schizophrenia Unknown Not Specified Dementia Unknown brother Hypertension Unknown Schizophrenia Unknown Family history of mental disorder Unknown Malignant neoplasm Unknown natural son Nephromegaly Unknown Relationship Condition Age at Onset Recorded Date/T susan father Malignant neoplasm of prostate Unknown brother Schizophrenia Unknown mother Dementia Unknown brother Hypertension Unknown Schizophrenia Unknown Family history of mental disorder Unknown Malignant neoplasm Unknown son Nephromegaly Unknown Advance Directives No Advanced Directives Records [...] Buttock Radiating To Leg Pain m47.817 pain Chief Complaint Increase Buttock Rad iating To Leg Pain m47.817 pain med refill Reason for Visit Chronic pain Fibromyalgia Lumbosacral spondylosis without myelopathy Sacroiliitis Chief Complaint BH med refill med refill Reason for Visit Chronic pain Fibromyalgia Lumbosacral spondylosis without myelopathy Sacroiliitis Chronic pain Fibromyalgia Lumbosacral spondylosis without myelopathy Osteoarthritis of both knees Sacroiliitis Thoracic spondylosis Chief Complaint BH med refill Reason for Visit Chronic pain Fibromyalgia Lumbosacral spondylosis without myelopathy Osteoarthritis of both knees Sacroiliitis Chief Complaint BH med refill m17.0 Reason for Visit Chronic pain Fibromyalgia Lumbosacral spondylosis without myelopathy Osteoarthritis of both knees Sacroiliitis Chief Complaint med refill m17.0 review imaging of the knees Reason for Visit Chronic pain Fibromyalgia Lumbosacral spondylosis without myelopathy Osteoarthritis of both knees Sacroiliitis Chronic pain Lumbar radiculopathy Primary osteoarthritis of left knee Primary osteoarthritis of right knee Chief Complaint med refill m17.0 review imaging of the knees R knee steroid injection Reason for Visit Chronic pain Fibromyalgia Lumbosacral spondylosis without myelopathy Osteoarthritis of both knees Sacroiliitis Chronic pain Lumbar radiculopathy Primary osteoarthritis of left knee Primary osteoarthritis of right knee Chronic pain Primary osteoarthritis of left knee Primary osteoarthritis of right knee Chief Complaint med refill m17.0 review imaging of the knees R knee steroid injection m54.16 Reason for Visit Chronic pain Fibromyalgia Lumbosacral spondylosis without myelopathy Osteoarthritis of both knees Sacroiliitis Chronic pain Lumbar radiculopathy Primary osteoarthritis of left knee Primary osteoarthritis of right knee Chronic pain Primary osteoarthritis of left knee Primary osteoarthritis of right knee Additional Source Comments INFORMATION SOURCE (unrecogn ized section and content) DATE CREATED AUTHOR 05/03/2021 [facility] DATE CREATED AUTHOR AUTHOR'S ORGANIZ ATION 08/30/2022 [facility] DATE CREATED AUTHOR AUTHOR'S ORGANIZ ATION 02/14/2024 [facility] DATE CREATED AUTHOR AUTHOR'S ORGANIZ ATION 02/16/2024 [facility] DATE CREATED AUTHOR AUTHOR'S ORGANIZ ATION 02/17/2024 [facility] DATE CREATED AUTHOR AUTHOR'S ORGANIZ ATION 05/09/2024 [facility] DATE CREATED AUTHOR AUTHOR'S ORGANIZ ATION 05/11/2024 [facility] Care Team (unrecognized sect ion and content) Team Status: Active Member Role Status Dates Alyssa Arreola NP-C Primary Care Provider Active Team Status: Inactive Member Role Status Dates Alyssa Arreola NP-C Primary Care Provider Active Start: December 11, 2023 End: December 11, 2023 Destini Kilgore NP Attending Provider Active Start: December 11, 2023 End: December 11, 2023 Team Status: Active Member Role Status Dates Alyssa Arreola NP-Jess Primary Care Provider Active Start: December 16, 2023 Alexey Maki MD Attending Provider Active Start: December 16, 2023 Team Status: Inactive Member Role Status Dates Alyssa Arreola NP-Jess Primary Care Provider Active Start: January 02, 2024 End: January 02, 2024 Asif Mejia MD Attending Provider Active Sta rt: January 02, 2024 End: January 02, 2024 Team Status: Active Member Role Status Dates Alyssa Arreola NP-C Primary Care Provider Active Start: June 24, 2023 Alexey Maki MD Attending Provider Active Start: June 24, 2023 Team Status: Inactive Member Role Status Dates Alyssa Arreola NP-Jess Primary Care Provider Active Start: July 16, 2023 End: July 16, 2023 Asif Mejia MD Active Start: [facility] 2023 End: July 16, 2023 Destini Kilgore NP Attending Provider Active Start: July 16, 2023 End: July 16, 2023 Team Status: Inactive Member Role Status Dates Alyssa Lesly Maxwell , INTERNET SALES REPRESENTATIVE-C Primary Care Provider Active Start: September 04, 2023 End: September 04, 2023 Destinihayden Kilgore , INTERNET SALES REPRESENTATIVE Attending Provider Active Start: September 04, 2023 End: September 04, 2023 Team Status: Inactive Member Role Status Dates Asif Mejia MD Attending Provider Active Sta rt: May 19, 2023 End: May 19, 2023 Team Status: Inactive Member Role Status Dates Alyssa Arreola INTERNET SALES REPRESENTATIVE-C Primary Care Provider Active Start: May 19, 2023 End: May 19, 2023 Asif Mejia MD Attending Provider Active Sta rt: May 19, 2023 End: May 19, 2023 Team Status: Inactive Member Role Status Dates Alyssa Arreola INTERNET SALES REPRESENTATIVE-C Primary Care Provider Active Start: June 04, 2023 End: June 04, 2023 Asif Mejia MD Attending Provider Active Sta rt: June 04, 2023 End: June 04, 2023 Team Status: Active Member Role Status Dates Alyssa Arreola INTERNET SALES REPRESENTATIVE-C Primary Care Provider Active Start: February 25, 2023 Alexey Maki MD Attending Provider Active Start: February 25, 2023 Team Status: Inactive Member Role Status Dates Destini Kilgore INTERNET SALES REPRESENTATIVE Attending Provider Active Start: April 09, 2023 End: April 09, 2023 Team Status: Inactive Member Role Status Dates Alyssa Arreola INTERNET SALES REPRESENTATIVE-C Primary Care Provider Active Start: April 09, 2023 End: April 09, 2023 Destini Kilgore , INTERNET SALES REPRESENTATIVE Attending Provider Active Start: April 09, 2023 End: April 09, 2023 Team Status: Inactive Member Role Status Dates Alyssa Arreola INTERNET SALES REPRESENTATIVE-C Primary Care Provider Active Asif Mejia MD Attending Provider Active Team Status: Inactive Member Role Status Dates Alyssa Arreola INTERNET SALES REPRESENTATIVE-C Primary Care Provider Active Destini Kilgore , INTERNET SALES REPRESENTATIVE Attending Provider Active Team Status: Active Member Role Status Dates Alyssa Arreola INTERNET SALES REPRESENTATIVE-C Primary Care Provider Active Start: March 06, 2023 Alexey Maki MD Attending Provider Active Start: March 06, 2023 Team Status: Active Member Role Status Dates Alyssa Arreola INTERNET SALES REPRESENTATIVE-C Primary Care Provider Active Start: October 15, 2023 Alexey Maki MD Attending Provider Active Start: October 15, 2023 Team Status: Active Member Role Status Dates MATTHIAS Altamirano Primary Care Provider Active Start: January 06, 2024 Alexey Maki MD Attending Provider Active Start: January 06, 2024 Team Status: Inactive Member Role Status Dates MATTHIAS Altamirano Primary Care Provider Active Start: January 15, 2024 End: January 15, 2024 Asif Mejia MD Attending Provider Active Sta rt: January 15, 2024 End: January 15, 2024 Office Machine Installer Relationship Specialty Start Date End Date Alyssa Arreola MD [address] [place] [id number] Referring Physician Family Medicine 09/24/23 Office Machine Installer Relationship Specialty Start Date End Date Alyssa Arreola MD [address] [place] [id number] Referring Physician Family Medicine 09/24/23 Office Machine Installer Relationship Specialty Start Date End Date Alyssa Arreola MD [address] [place] [id number] Referring Physician Family Medicine 09/24/23 Office Machine Installer Relationship Specialty Start Date End Date Alyssa Arreola MD [address] [place] [id number] Referring Physician Family Medicine 09/24/23 Team Status: Active Member Role Status Dates MATTHIAS Altamirano Primary Care Provider Active Start: February 16, 2024 Alexey Maki MD Attending Provider Active Start: February 16, 2024 Team Status: Inactive Member Role Status Dates MATTHIAS Altamirano Primary Care Provider Active Start: February 25, 2024 End: February 25, 2024 Asif Mejia MD Attending Provider Active Sta rt: February 25, 2024 End: February 25, 2024 Office Machine Installer Relationship Specialty Start Date End Date Alyssa Arreola MD [address] [place] [phone] Referring Physician Family Medicine 09/24/23 Joel Jerez DO [address] [address] Referring Physician Neurology 03/04/24 Office Machine Installer Relationship Specialty Start Date End Date Alyssa Arreola MD [address] [place] [phone] Referring Physician Family Medicine 09/24/23 Joel Jerez DO [address] [address] Referring Physician Neurology 03/04/24 Office Machine Installer Relationship Specialty Start Date End Date Alyssa Arreola MD [address] [place] [phone] Referring Physician Family Medicine 09/24/23 Joel Jerez DO [address] [place] [phone] Referring Physician Neurology 03/04/24 Office Machine Installer Relationship Specialty Start Date End Date Unallocated, Jeni Dahl MD [facility] [place] [address] PCP - General Family Medicine 05/05/24 Alyssa Arreola MD [address] [place] [phone] Referring Physician Family Medicine 09/24/23 Joel Jerez DO [address] [address] Referring Physician Neurology 03/04/24 Office Machine Installer Relationship Specialty Start Date End Date Unallocated, N[place] [address] PCP - General Family Medicine 05/05/24 Alyssa Arreola MD [facility] [place], [place] [id number] Referring Physician Family Medicine 09/24/23 Joel Jerez DO [address] [place] [phone] Referring Physician Neurology 03/04/24 REASON FOR VISIT (unrecogniz ed section and content) Reason Comments Migraine Back Pain Reason Comments Migraine Tingling Reason Comments Sleep Apnea Reason Comments Migraine Tingling Goals (unrecognized section and content) Goals may [...] BE BASED ON THE PRIMARY CLINICAL RECORDS. [employer] provides no warranty or guarantee of the accuracy or completeness of information in this document.
== END 2024-05-26 08:33 | disposition home or self-care (01) ==
LOC: MRI 08:32
PROVIDERS: PCP Nurse Practitioner Family; Visit Provider Nurse Practitioner Family
DX: R20.2 Paresthesia of skin (principal); M47.812 Spondylosis without myelopathy or radiculopathy, cervical region
CPT/HCPCS: 72141

== ENCOUNTER 2024-11-23 09:22 | Outpatient (OUT) | payer MEDICAID, SELFPAY ==
--- OUTSIDE RECORDS SUMMARY | 2024-07-21 06:00 | XMS_ITS ---
Author Organization [facility] in [place] Address [address] [place] [address] Care Team Providers Care Personal Lines Account Manager Name Role Phone Alyssa Juarez Primary Care Provider Allergies Allergen (clinical drug ingredient) Drug/Non Drug Allergy documented on EMR Reaction Allergy Type Onset Date Status Adhesive rash Allergy Active aspirin Aspirin shaky Drug Allergy Active REASON FOR VISIT Presents to office alone for 1 month follow up on Adipex, CSA updated Medications Medication SIG (Take, Route, Frequency, Duration) Notes Start Date End Date Status Venlafaxine HCl ER 150 MG 2 capsule with food Orally Once a day for 30 days Active Vitamin D3 50 MCG (1999) 1 capsule Or ally Once a day for 30 days 06/09/2024 Active Zavzpret 10 MG/ACT 1 application as nee ded Nasally every 24 hrs Active ZyrTEC Allergy 10 MG 1-2 tablet Orally Q HS Active Adipex-P 37.5 MG 1 tablet before carmelita kfast Orally Once a day for 30 days 07/21/2024 Active Rexulti 4 MG 1 tablet Orally Once a day for 30 day(s) Active Simvastatin 40 MG TAKE 1 TABLET BY TH EVERYDAY AT NIGHT for 30 Active Spironolactone 50 MG 1 tablet Orally Onc e a day Active Ubrelvy 50 MG 1 tablet may take se cond dose at least 2 hours after first dose as needed Orally Once a day Active Triamcinolone Acetonide 0.1 % 1 application do not rinse afterwards and avoid eating or drinking for 30 minutes Mouth/Throat Twice a day 07/21/2024 Active lamoTRIgine 100 MG 1 tablet Orally twic e daily for 30 days Active lamoTRIgine 200 MG 1 tablet Orally Once a day for 30 day(s) Active metFORMIN HCl 500 MG 1 tablet with a samson l Orally Once a day for 30 days Active Omeprazole 40 MG TAKE 1 CAPSULE BY MO [facility] TWICE A DAY for 30 Active Gabapentin 400 MG 1 capsule Orally 2-3 times daily for 30 days Active Benztropine Mesylate 0.5 MG 1 tablet Ora lly twice daily for 30 days Active Chlorthalidone 25 MG 1/2 tablet in the m orning with food Orally for 30 days 06/09/2024 Active Albuterol Sulfate HFA 108 (90 Base) MCG/ACT 1 puff as needed Inhalation every 4 hrs for 30 days Active Emgality 120 MG/ML as directed Subcutan eous once monthly for 30 days Active Fluticasone Propionate 50 MCG/ACT 1 spray in each nostril Nasally Once a day for 30 day(s) PRN Active Social History Tobacco Use: Social History Observation Description Date Details (start date - stop date) Never Smoker NA - NA Tobacco Use/Smoking Question Answer Notes Patient is a nonsmoker AUDIT-C (Standard) Question Answer Notes Did you have a drink containing alcohol in the p ast year? No Points 0 Interpretation Negative Problems Problem Type SNOMED Code ICD Code Onset Dates Problem Status W/U Status Risk Notes Problem Canker sore (K12.0) Active confirmed Vital Signs Weight 355.6 lbs 07/21/2024 Height 68 in 07/21/2024 Blood pressure systolic 154 mm Hg 07/22/19 25 Blood pressure diastolic 100 mm Hg 025 BMI 54.06 kg/m2 07/21/2024 Encounters Encounter Location Date Provider Diagnosis [facility] [address] [place] [address] 07/21/2024 Alyssa Juarez Class 3 obesity E66.01 and Canker sore K12.0 Assessments Encounter Date Diagnosis (ICD Code) Assessment Notes Treatment Notes Treatment Clinical Notes Section Notes 07/21/2024 Class 3 obesity (ICD-10 - E66.01) work on diet, increase activity fu 1m 07/21/2024 Canker sore (ICD-10 - K12.0) Plan Of Treatment Medication Medication Name Sig Start Date Stop Date Notes Adipex-P 37.5 MG 1 tablet before carmelita kfast Orally Once a day for 30 days 07/21/2024 Triamcinolone Acetonide 0.1 % 1 applicat ion do not rinse afterwards and avoid eating or drinking for 30 minutes Mouth/Throat Twice a day 07/21/2024 Treatment Notes Assessment Notes Class 3 obesity work on diet, increase activity fu 1m Next Appt Details Follow Up: prn,4 Weeks, Reas on: Provider Name:Alyssa vincent, 02/22/2025 10:30:00 AM, [address] [place], [address], Progress Notes * Shilo BLAKEiDOB:1970 ([age] yo F)Acc No.[id number]:07/21/2024 Progress Note Patient: Shailesh FUNEZ Provider: Felicita Juarez ([facility]), ELECTRIC SWITCH REPAIRER :1970 A ge:53 Y S ex:Female Date:07/21/2024 Address:[place] [address], [address] [facility] Check In:09:43 AM ESTCheck O ut:10:03 AM EST Subjective: * Chief Complaints: * 1 . Presents to office alone for 1 month follow up on Adipex. 2. CSA updated. * HPI: G eneral: taking adipex tolerating ok only lost few lbs feels appetite less wants to continue. * ROS: G eneral/Constitutional: Fever d enies. H eadache d enies. W eight loss?denies. O phthalmologic: Discharge d enies. E ye Pain d enies. I tching and redness d enies. E NT: Nasal discharge d enies. N janneth congestion d enies.?Sore throat d enies. C ardiovascular: Chest tightness/ heavy pressure d enies. R apid heart rate d enies. S welling of extremities d enies. C hest pain d enies. ? R espiratory: Productive cough d enies. C hest pain d enies. C ough d enies. S hortness of breath d enies. W heezing d enies. ? G astrointestinal: Abdominal pain d enies. C onstipation d enies. D ecreased appetite d enies. D iarrhea d enies. N ausea d enies. V omiting?denies. G enitourinary: Urinary incontinence d enies. P ainful urination d enies. M usculoskeletal: Back pain d enies. N paula pain d enies. M uscle aches d enies. S kin: Rash d enies. S kin lesion(s) d enies. ? * Active Problem List E66.3 Overweight Modified On:07/24/2022 Status:confirmed R06.83 Snoring Modified On:07/24/2022 Status:confirmed R06.02 SOB (shortness of br eath) Modified On:07/24/2022 Status:confirmed R63.5 Weight gain Modified On:07/24/2022 Status:confirmed R10.13 Epigastric discomfor t Modified On:07/24/2022 Status:confirmed K13.79 Sore mouth Modified On:07/24/2022 Status:confirmed R94.31 Abnormal electrocard iogram during exercise stress test Modified On:07/24/2022 Status:confirmed U07.1 COVID-19 Modified On:07/24/2022 Status:confirmed N95.1 Menopausal hot flush es Modified On:07/24/2022 Status:confirmed E16.1 Hyperinsulinemia Modified On:07/24/2022 Status:confirmed R40.0 Somnolence, daytime Modified On:07/24/2022 Status:confirmed G43.709 Chronic migraine Modified On:07/24/2022 Status:confirmed Z68.42 Body mass index (BMI ) 45.0-49.9, adult Modified On:07/24/2022 Status:confirmed E55.9 Vitamin D deficiency Modified On:07/24/2022 Status:confirmed K21.9 GERD (gastroesophage al reflux disease) Modified On:07/24/2022 Status:confirmed M19.90 Arthritis Modified On:03/29/2023W/U Status:confirmed F41.8 Depression with anxi ety Modified On:07/24/2022 Status:confirmed 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, unspecified Modified On:07/24/2022 Status:confirmed G43.909 Migraine Modified On:07/24/2022 Status:confirmed G47.33 Obstructive sleep ap erich (adult) (pediatric) Modified On:05/02/2023U Status:confirmed N39.0 UTI (urinary tract i nfection) Modified On:07/03/2023U Status:confirmed R73.03 Pre-diabetes Modified On:12/26/2023U Status:confirmed I10 HTN (hypertension) Modified On:06/09/2024 Status:confirmed E66.01 Class 3 obesity Modified On:06/09/2024 Status:confirmed M17.12 Osteoarthritis of le ft knee Modified On:06/22/2024U Status:confirmed K12.0 Canker sore Modified On:07/21/2024 Status:confirmed * Medical History: M enopausal hot flushes, Overweight, SOB (shortness of breath), Weight gain, Hyperinsulinemia, Sore mouth, Epigastric discomfort, Somnolence, daytime, Snoring, COVID-19, Abnormal electrocardiogram during exercise stress test, Chronic migraine, Body mass index (BMI) 45.0-49.9, adult, Vitamin D deficiency, GERD (gastroesophageal reflux disease), Arthritis, Depression with anxiety, 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 * Surgical History: g allbladder , rt shuolder , x2 , Epidural injections . * Hospitalization/Major Diagno stic Procedure: S ee above . * Family History: F ather: alive, diagnosed with Other malignant neoplasm of unspecified site. M other: , alzhemiers, diagnosed with Other malignant neoplasm of unspecified site, Diabetes mellitus without mention of complication, type II or unspecified type, not stated as uncontrolled. B rother(s): alive, schizophrenia, diagnosed with Unspecified essential hypertension. 1 brother(s) . 2 son(s) , 1 daughter(s) . . * Social History: T obacco Use: T obacco Use/Smoking P atient is a n onsmoker D rug/Alcohol: A JUAN-C (Standard) D id you have a drink containing alcohol in the past year? N o P oints 0 I nterpretation N egative * Medications: T aking Adipex-P(Phentermine HCl) 37.5 MG Tablet 1 tablet before breakfast Orally Once a day , Taking Albuterol Sulfate HFA 108 (90 Base) MCG/ACT Aerosol Solution 1 puff as needed Inhalation every 4 hrs , Taking Benztropine Mesylate 0.5 MG Tablet 1 tablet Orally twice daily , Taking Chlorthalidone 25 MG Tablet 1/2 tablet in the morning with food Orally , Taking Emgality(Galcanezumab-gnlm) 120 MG/ML Solution Auto-injector as directed Subcutaneous once monthly , Taking Fluticasone Propionate 50 MCG/ACT Suspension 1 spray in each nostril Nasally Once a day , Notes to Pharmacist: PRN, Taking Gabapentin 400 MG Capsule 1 capsule Orally 2-3 times daily , Taking lamoTRIgine 100 MG Tablet 1 tablet Orally twice daily , Taking lamoTRIgine 200 MG Tablet 1 tablet Orally Once a day , Taking metFORMIN HCl 500 MG Tablet 1 tablet with a meal Orally Once a day , Taking Omeprazole 40 MG Capsule Delayed Release TAKE 1 CAPSULE BY MOUTH TWICE A DAY , Taking Rexulti(Brexpiprazole) 4 MG Tablet 1 tablet Orally Once a day , Taking Simvastatin 40 MG Tablet TAKE 1 TABLET BY MOUTH EVERYDAY AT NIGHT , Taking Spironolactone 50 MG Tablet 1 tablet Orally Once a day , Taking Ubrelvy(Ubrogepant) 50 MG Tablet 1 tablet may take second dose at least 2 hours after first dose as needed Orally Once a day , Taking Venlafaxine HCl ER 150 MG Capsule Extended Release 24 Hour 2 capsule with food Orally Once a day , Taking Vitamin D3 50 MCG (2000 UT) Capsule 1 capsule Orally Once a day , Taking Zavzpret(Zavegepant HCl) 10 MG/ACT Solution 1 application as needed Nasally every 24 hrs , Taking ZyrTEC Allergy(Cetirizine HCl) 10 MG Tablet 1-2 tablet Orally Q HS , Medication List reviewed and reconciled with the patient * Allergies: A spirin: shaky, Adhesive: rash. Objective: * Vitals: W t:355.6lbs, Ht: 68 in, BP:154/100mm Hg, BMI:54.06Index, Ht-cm: 172.72 cm, Wt-k.3 kg. * Examination: G eneral Examinations: GENERAL APPEARANCE: a lert and oriented, i n no acute distress. EYES: c onjunctiva normal, sclera non-icteric. NOSE: n ormal external appearance. LUNGS: c lear to auscultation bilaterally. CARDIO: r egular rate and rhythm, S1, S2 normal. ABDOMEN: s oft, nontender. MUSCULOSKELETAL: G ait and station normal. SKIN: w arm and dry. Assessment: * Assessment: 1. C lass 3 obesity - E66.01 (Primary) 2 . C anker sore - K12.0 ? Plan: * Treatment: 2. C anker sore Start Triamcinolone Acetonide Paste, 0.1 %, 1 application do not rinse afterwards and avoid eating or drinking for 30 minutes, Mouth/Throat, Twice a day, 1, Refills 0. * Preventive Medicine: Screenings/Counseling: B AL ACTION PLAN Above Normal BMI Follow-up D ietary management education, guidance, and counseling See treatment section of progress note for complete details of management plan. * Follow Up: p rn,4 Weeks * * Electronically signed by Niki Juarez , ADONAY, TRAY SERVER.ELECTRIC SWITCH [id number] on 07/23/2024 at 12:56 PM EDT Sign off status: Completed Visit Status: C HK (Check Out) true * Provider: Felicita Juarez ([facility]), ELECTRIC SWITCH REPAIRER Date: 07/21/2024 Generated for Devin ghotra/Chinyere/eTnathanitting on: 0 11/23/2024 09:25 AM EDT History and Physical Notes * HPI (History of Present Illness) Category Sub-Category Detail Notes Category Not es General taking adipex tolerating ok only lost few lbs feels appetite less wants to continue Examination Category Sub-Category Detail Notes Category Not es General Examinations GENERAL APPEARANCE: alert a nd oriented, in no acute distress EYES: conjunctiva normal, sclera non-icteric EARS: NOSE: normal external appe arance THROAT: CARDIO: regular rate and rhy thm, S1, S2 normal LUNGS: clear to auscultatio n bilaterally ABDOMEN: soft, nontender SKIN: warm and dry BACK: MUSCULOSKELETAL: Gait and station nor mal LYMPH NODES:
--- OUTSIDE RECORDS SUMMARY | 2024-08-23 05:00 | XMS_ITS ---
Author Organization [facility] in [place] Address [address] [place] [address] Care Team Providers Care Hod Carrier Name Role Phone Alyssa Juarez Primary Care Provider Allergies Allergen (clinical drug ingredient) Drug/Non Drug Allergy documented on EMR Reaction Allergy Type Onset Date Status Adhesive rash Allergy Active aspirin Aspirin shaky Drug Allergy Active REASON FOR VISIT 1 month f/u- Adipex, Migraines have been horrible- using Emgality but makes it worse after getting the shot- does see Neurology Medications Medication SIG (Take, Route, Frequency, Duration) Notes Start Date End Date Status Spironolactone 50 MG 1 tablet Orally Onc e a day Active Simvastatin 40 MG TAKE 1 TABLET BY ALYSE TH EVERYDAY AT NIGHT for 30 Active Ubrelvy 50 MG 1 tablet may take se cond dose at least 2 hours after first dose as needed Orally Once a day Active Triamcinolone Acetonide 0.1 % 1 application do not rinse afterwards and avoid eating or drinking for 30 minutes Mouth/Throat Twice a day 07/21/2024 Active Omeprazole 40 MG TAKE 1 CAPSULE BY MO [facility] TWICE A DAY for 30 Active metFORMIN HCl 500 MG 1 tablet with a samson l Orally Once a day for 30 days Active lamoTRIgine 200 MG 1 tablet Orally Once a day for 30 day(s) Active lamoTRIgine 100 MG 1 tablet Orally twic e daily for 30 days Active Rexulti 4 MG 1 tablet Orally Once a day for 30 day(s) Active Gabapentin 400 MG 1 capsule Orally 2-3 times daily for 30 days Active Fluticasone Propionate 50 MCG/ACT 1 spray in each nostril Nasally Once a day for 30 day(s) PRN Active Benztropine Mesylate 0.5 MG 1 tablet Ora lly twice daily for 30 days Active Emgality 120 MG/ML as directed Subcutan eous once monthly for 30 days Active Chlorthalidone 25 MG 1/2 tablet in the m orning with food Orally for 30 days 06/09/2024 Active Vitamin D3 50 MCG (2000 UT) 1 capsule Or ally Once a day for 30 days 06/09/2024 Active Venlafaxine HCl ER 150 MG 2 capsule with food Orally Once a day for 30 days Active ZyrTEC Allergy 10 MG 1-2 tablet Orally Q HS Active Zavzpret 10 MG/ACT 1 application as nee ded Nasally every 24 hrs Active Albuterol Sulfate HFA 108 (90 Base) MCG/ACT INHALE 1 PUFF INTO THE LUNGS EVERY 4 HOURS NEEDED FOR 30 DAYS for 30 Active Social History Tobacco Use: Social History Observation Description Date Details (start date - stop date) Never Smoker NA - NA Tobacco Use/Smoking Question Answer Notes Patient is a nonsmoker Vital Signs Weight 355.0 lbs 08/23/2024 Height 68 in 08/23/2024 Blood pressure systolic 110 mm Hg 08/24/19 25 Blood pressure diastolic 78 mm Hg 025 BMI 53.97 kg/m2 08/23/2024 Encounters Encounter Location Date Provider Diagnosis [address] [address] 08/23/2024 Alyssa Juarez Class 3 obesity E66.01 Assessments Encounter Date Diagnosis (ICD Code) Assessment Notes Treatment Notes Treatment Clinical Notes Section Notes 08/23/2024 Class 3 obesity (ICD-10 - E66.01) try OTC Gen work on diet Plan Of Treatment Medication Medication Name Sig Start Date Stop Date Notes Adipex-P 37.5 MG 1 tablet before carmelita kfast Orally Once a day 07/21/2024 Treatment Notes Assessment Notes Class 3 obesity try OTC Gen work on diet Next Appt Details Follow Up: prn,3 Months, Ignacio son: Provider Name:Alyssa vincent, 02/22/2025 10:30:00 AM, [address] [place], [address], Progress Notes * Shilo BLAKEiDOB:1970 ([age] yo F)Acc No.[id number]:08/23/2024 Progress Note Patient: Shailesh FUNEZ Provider: Felicita Juarez ([facility]), FLIGHT ENGINEER :1970 A ge:53 Y S ex:Female Date:08/23/2024 Address:[place] [address], [address] [facility], [id number] Check In:08:42 AM ESTCheck O ut:09:15 AM EST Subjective: * Chief Complaints: * 1 . 1 month f/u- Adipex. 2. Migraines have been horrible- using Emgality but makes it worse after getting the shot- does see Neurology. * HPI: G eneral: did not lose on adipex states only drinking water eating less headaches have been bad, missed neurology fu will call to reschedule on rexulti, may be contributing to weight sees psych. * ROS: G eneral/Constitutional: Patient complaining of n ot able to lose weight. F ever?denies. H eadache a dmits. W eight loss d enies. O phthalmologic: Discharge d enies. E ye [...] M usculoskeletal: Back pain d enies. N puala pain d enies. 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, unspecified Modified On:07/24/2022 Status:confirmed G43.909 Migraine Modified On:07/24/2022 Status:confirmed G47.33 Obstructive sleep ap erich (adult) (pediatric) Modified On:05/02/2023/U Status:confirmed N39.0 UTI (urinary tract i nfection) Modified On:07/03/2023U Status:confirmed R73.03 Pre-diabetes Modified On:12/26/2023/U Status:confirmed I10 HTN (hypertension) Modified On:06/09/2024U Status:confirmed E66.01 Class 3 obesity Modified On:06/09/2024U Status:confirmed M17.12 Osteoarthritis of le ft knee Modified On:06/22/2024/U Status:confirmed K12.0 Canker sore Modified On:07/21/2024U Status:confirmed * Medical History: M enopausal hot [...] Use/Smoking P atient is a n onsmoker * Medications: T aking Adipex-P(Phentermine HCl) 37.5 MG Tablet 1 tablet before breakfast Orally Once a day , Taking Albuterol Sulfate HFA 108 (90 Base) MCG/ACT Aerosol Solution INHALE 1 PUFF INTO THE LUNGS EVERY 4 HOURS NEEDED FOR 30 DAYS , Taking Benztropine Mesylate 0.5 MG Tablet [...] tablet Orally Once a day , Taking Triamcinolone Acetonide 0.1 % Paste 1 application do not rinse afterwards and avoid eating or drinking for 30 minutes Mouth/Throat Twice a day , Taking Ubrelvy(Ubrogepant) 50 MG [...] shaky, Adhesive: rash. Objective: * Vitals: W t:355.0lbs, Ht: 68 in, BP:110/78mm Hg, BMI:53.97Index, Ht-cm: 172.72 cm, Wt-k.03 kg. * Examination: G eneral Examinations: GENERAL APPEARANCE: a lert and oriented, in no acute distress, obese. EYES: c onjunctiva normal, sclera non-icteric. LUNGS: c lear to auscultation bilaterally. CARDIO: r egular rate and rhythm, S1, S2 normal. MUSCULOSKELETAL: G ait and station normal. SKIN: w arm and dry. Assessment: * Assessment: 1. C lass 3 obesity - E66.01 (Primary) Plan: * Treatment: * Preventive Medicine: Screenings/Counseling: B SD ACTION PLAN Above Normal BMI Follow-up D ietary management education, guidance, and counseling * Follow Up: p rn,3 Months * * Electronically signed by Niki Juarez , ADONAY, PUMPING SUPERVISOR.FLIGHT [id number] on 08/24/2024 at 03:37 PM EDT Sign off status: Completed Visit Status: C HK (Check Out) true * Provider: Felicita Juarez ([facility]), FLIGHT ENGINEER Date: 08/23/2024 Generated for Devin ng/Chinyere/eTransmitting on: 0 11/23/2024 09:26 AM EDT History and Physical Notes * HPI (History of Present Illness) Category Sub-Category Detail Notes Category Not es General did not lose on adipex states only drinking water eating less headaches have been bad, missed neurology fu will call to reschedule on rexulti, may be contributing to weight sees psych Examination Category Sub-Category Detail Notes Category Not es General Examinations GENERAL APPEARANCE: alert a nd oriented, in no acute distress, obese EYES: conjunctiva normal, sclera non-icteric EARS: NOSE: THROAT: CARDIO: regular rate and rhy thm, S1, S2 normal LUNGS: clear to auscultatio n bilaterally ABDOMEN: SKIN: warm and dry BACK: MUSCULOSKELETAL: Gait and station nor mal LYMPH NODES:
--- OUTSIDE RECORDS SUMMARY | 2024-11-22 05:30 | XMS_ITS ---
Author Organization [facility] in [place] Address [address] [place] [address] Care Team Providers Care Cone Treater Name Role Phone Niki Juarezela Primary Care Provider [phone] Allergies Allergen (clinical drug ingredient) Drug/Non Drug Allergy documented on EMR Reaction Allergy Type Onset Date Status Adhesive rash Allergy Active aspirin Aspirin shaky Drug Allergy Active REASON FOR VISIT 3mon- said you can order labs now as well, Reviewed meds with patient- she brought them all in Medications Medication SIG (Take, Route, Frequency, Duration) Notes Start Date End Date Status Ingrezza 80 MG 1 capsule Orally Onc e a day 11/22/2024 Active busPIRone HCl 30 MG 1 tablet Orally Twic e a day 11/22/2024 Active Allergy Active Mupirocin 2 % 1 application Supervisor [facility] ally Twice a day for 5 days 11/22/2024 Active Hair Skin & Nails Ac tive Venlafaxine HCl ER 150 MG 2 capsule with food Orally Once a day for 30 days Active Simvastatin 40 MG TAKE 1 TABLET BY ALYSE TH EVERYDAY AT NIGHT for 30 Active Omeprazole 40 MG TAKE 1 CAPSULE BY MO UTH TWICE A DAY for 30 Active Rexulti 4 MG 1 tablet Orally Once a day for 30 day(s) Active metFORMIN HCl 500 MG 1 tablet with a samson l Orally Once a day for 30 days Active Gabapentin 400 MG 1 capsule Orally 2-3 times daily for 30 days Active Fluticasone Propionate 50 MCG/ACT 1 spray in each nostril Nasally Once a day for 30 day(s) PRN Active Chlorthalidone 25 MG 1/2 tablet in the morning with food Orally for 30 days 06/09/2024 Active Albuterol Sulfate HFA 108 (90 Base) MCG/ACT INHALE 1 PUFF INTO THE LUNGS EVERY 4 HOURS NEEDED FOR 30 DAYS for 30 Active Benztropine Mesylate 0.5 MG 1 tablet Ora lly twice daily for 30 days Active Cinnamon Active Cranberry Active Flaxseed Oil Active Gen Active Apple Cider Vinegar Active Turmeric Active Social History Tobacco Use: Social History Observation Description Date Details (start date - stop date) Never Smoker NA - NA Tobacco Use/Smoking Question Answer Notes Patient is a nonsmoker Problems Problem Type SNOMED Code ICD Code Onset Dates Problem Status W/U Status Risk Notes Problem Irritable bowel syndrome (83632368) IBS (irritable bowel syndrome) (K58.9) Active confirmed Vital Signs Weight 346.0 lbs 11/22/2024 Height 68 in 11/22/2024 Blood pressure systolic 122 mm Hg 11/23/19 25 Blood pressure diastolic 88 mm Hg 025 BMI 52.6 kg/m2 11/22/2024 Encounters Encounter Location Date Provider Diagnosis [facility] [address] [place] [address] 11/22/2024 Alyssa Juarez Wellness examination Z00.00 and IBS (irritable bowel syndrome) K58.9 Assessments Encounter Date Diagnosis (ICD Code) Assessment Notes Treatment Notes Treatment Clinical Notes Section Notes 11/22/2024 Wellness examination (ICD-10 - Z00.00) ROS done exam done recent mammogram due for pap, fu Chelo 11/22/2024 IBS (irritable bowel syndrome) (ICD-10 - K58.9) discussed diet decrease sweet tea handouts given on IBS Plan Of Treatment Medication Medication Name Sig Start Date Stop Date Notes Mupirocin 2 % 1 application Supervisor [facility] ally Twice a day for 5 days 11/22/2024 Treatment Notes Assessment Notes Wellness examination ROS done exam done recent mammogram due for pap, fu Chelo IBS (irritable bowel syndrome) discussed diet decrease sweet tea handouts given on IBS Pending Test Test Name Order Date HEMOGLOBIN A1C (GLYCO) 11/22/2024 IRON, TOTAL 11/22/2024 LIPID PANEL (CHOL/TRIG/HDL/LDL) 11/23/19 25 VITAMIN D, 25 LEVEL (TOTAL) 11/22/2024 Insulin Level 11/22/2024 THYROID PANEL (T4/TSH/FREE T3) 5 CMP (COMP MET STEIN) w/eGFR CKD-EPI 2024 CBC WITH DIFF 11/22/2024 Next Appt Details Follow Up: 3 Months,prn, [place] son: Provider Name:Alyssa Bell Kg vincent, 02/22/2025 10:30:00 AM, [address] [place], [address], Progress Notes * Shilo BLAKEiDOB:1970 ([age] yo F)Acc No.[id number]:11/22/2024 UNLOCKED PROGRESS NOTE Progress Note Patient: Shailesh FUNEZ Provider: Felicita Juarez ([facility]), CONFIDENTIAL INVESTIGATOR :1970 A ge:53 Y S ex:Female Date:11/22/2024 Address:[facility] [address] [facility] Check In:09:28 AM ESTCheck O ut:10:08 AM EST Subjective: * Chief Complaints: * 1 . 3mon- said you can order labs now as well. 2. Reviewed meds with patient- she brought them all in. * HPI: G eneral: BH labs pain managment psych cat scratches picks at scabs. * ROS: G eneral/Constitutional: Anxiety a dmits, sees psych. F ever d enies. H eadache d enies. O phthalmologic: Discharge d enies. [...] d enies. ? G astrointestinal: Abdominal pain c ramping relieved by BM. C onstipation?some. D ecreased appetite d enies. D iarrhea s ome. N ausea s ome. V omiting d enies. G enitourinary: Urinary incontinence d enies. P ainful urination d enies. M usculoskeletal: Back pain d enies. N paula pain d enies. M uscle aches d enies. S kin: Rash d enies. S kin lesion(s) c at scratches extremities. * Medical History: M enopausal hot flushes, [...] a n onsmoker * Medications: T aking Albuterol Sulfate HFA 108 (90 Base) MCG/ACT Aerosol Solution INHALE 1 PUFF INTO THE LUNGS EVERY 4 HOURS NEEDED FOR 30 DAYS , Taking Allergy , Taking Gen , Taking Apple Cider Vinegar , Taking Benztropine Mesylate 0.5 MG Tablet 1 tablet Orally twice daily , Taking busPIRone HCl 30 MG Tablet 1 tablet Orally Twice a day , Taking Chlorthalidone 25 MG Tablet 1/2 tablet in the morning with food Orally , Taking Cinnamon , Taking Cranberry , Taking Flaxseed Oil , Taking Fluticasone Propionate 50 MCG/ACT Suspension 1 spray in each nostril Nasally Once a day , Notes to Pharmacist: PRN, Taking Gabapentin 400 MG Capsule 1 capsule Orally 2-3 times daily , Taking Hair Skin & Nails , Taking Ingrezza(Valbenazine Tosylate) 80 MG Capsule 1 capsule Orally Once a day , Taking metFORMIN [...] BY MOUTH EVERYDAY AT NIGHT , Taking Turmeric , Taking Venlafaxine HCl ER 150 MG Capsule Extended Release 24 Hour 2 capsule with food Orally Once a day , Discontinued Emgality(Galcanezumab-gnlm) 120 MG/ML Solution Auto-injector as directed Subcutaneous once monthly , Discontinued lamoTRIgine 100 MG Tablet 1 tablet Orally twice daily , Discontinued lamoTRIgine 200 MG Tablet 1 tablet Orally Once a day , Discontinued Spironolactone 50 MG Tablet 1 tablet Orally Once a day , Discontinued Triamcinolone Acetonide 0.1 % Paste 1 application do not rinse afterwards and avoid eating or drinking for 30 minutes Mouth/Throat Twice a day , Discontinued Ubrelvy(Ubrogepant) 50 MG Tablet 1 tablet may take second dose at least 2 hours after first dose as needed Orally Once a day , Discontinued Vitamin D3 50 MCG (2000 UT) Capsule 1 capsule Orally Once a day , Discontinued Zavzpret(Zavegepant HCl) 10 MG/ACT Solution 1 application as needed Nasally every 24 hrs , Discontinued ZyrTEC Allergy(Cetirizine HCl) 10 MG Tablet 1-2 tablet Orally Q HS , Medication List reviewed and reconciled with the patient * Allergies: A spirin: shaky, Adhesive: rash. Objective: * Vitals: W t:346.0lbs, Ht: 68 in, BP:122/88mm Hg, BMI:52.6Index, Ht-cm: 172.72 cm, Wt-k.94 kg. * Examination: G eneral Examinations: GENERAL APPEARANCE: a lert and oriented, in no acute distress, obese. EYES: c onjunctiva normal, sclera non-icteric. NOSE: n ormal external appearance. LUNGS: c lear to auscultation bilaterally. CARDIO: r egular rate and rhythm, S1, S2 normal. MUSCULOSKELETAL: d ecreased ROM due to body habitus. SKIN: w arm and dry. Assessment: * Assessment: 1. I BS (irritable bowel syndrome) - K58.9 (Primary) 2 . W ellness examination - Z00.00 Plan: * Treatment: 2. W ellness examination Start Mupirocin Ointment, 2 %, 1 application, Externally, Twice a day, 5 days, 1, Refills 0. ? L AB: HEMOGLOBIN A1C (GLYCO) L AB: IRON, TOTAL L AB: LIPID PANEL (CHOL/TRIG/HDL/LDL) L AB: VITAMIN D, 25 LEVEL (TOTAL) L AB: Insulin Level L AB: THYROID PANEL (T4/TSH/FREE T3) L AB: CMP (COMP MET STEIN) w/eGFR CKD-EPI L AB: CBC WITH DIFF Notes: ROS done exam done recent mammogram due for pap, fu Chelo * Preventive Medicine: Screenings/Counseling: B PR ACTION PLAN Above Normal BMI Follow-up D ietary management education, guidance, and counseling * Follow Up: 3 Months,prn * * Electronic signature of Alanis Azar NP, COMMERCIAL DRIVER.CONFIDENTIAL INVESTIGATOR.[id number] on 11/23/2024 at 09:26 AM EDT Sign off status: Pending Visit Status: C HK (Check Out) * Provider: Felicita Juarez ([facility]), CONFIDENTIAL INVESTIGATOR Date: 11/22/2024 Generated for Edmundoi paradise/Chinyere/eTransmitting on: 11/23/2024 09:26 AM EDT History and Physical Notes * HPI (History of Present Illness) Category Sub-Category Detail Notes Category Not es General BH labs pain managment psych cat scratches picks at scabs Examination Category Sub-Category Detail Notes Category Not es General Examinations GENERAL APPEARANCE: alert a nd oriented, in no acute distress, obese EYES: conjunctiva normal, sclera non-icteric EARS: NOSE: normal external appe arance THROAT: CARDIO: regular rate and rhy thm, S1, S2 normal LUNGS: clear to auscultatio n bilaterally ABDOMEN: SKIN: warm and dry BACK: MUSCULOSKELETAL: decreased ROM due to body habitus LYMPH NODES:
--- OUTSIDE RECORDS SUMMARY | 2024-11-23 09:26 | XMS_ITS | Patient Health Record ---
Author Organization [facility] [place] Address [address] [place] [address] Care Team Providers Care Electronic Prepress Technician Name Role Phone Alyssa Juarez Primary Care Provider [phone] Allergies Allergen (clinical drug ingredient) Drug/Non Drug Allergy documented on EMR Reaction Allergy Type Onset Date Status Adhesive rash Allergy Active aspirin Aspirin shaky Drug Allergy Active Results Component Value Reference Range Notes COVID-19, Flu A+B IH (Not ye t reviewed by provider) Interpretation: Performing Lab: Notes/Report: COVID neg FLU A neg FLU B neg Control present CBC AUTO DIFF Reviewed date:12/26/2023 01:10:51 PM Interpretation: Performing Lab: Notes/Report: [facility] , White Blood Count 6.3 4.0-11.0 10 3/uL Red Blood Count 4.91 4.20-5.40 10 6/uL Hemoglobin 14.5 12.0-16.0 g/dL Hematocrit 43.4 36.0-48.0 % Mean Corpuscular Volume 88.4 81.0-99.0 fL Mean Corpuscular Hemoglobin 29.5 26.7-34.0 pg Mean Corpuscular HGB Conc 33.4 29.9-35.2 g/dL Red Cell Distribution Width 13.0 11.0-15.0 % Platelet Count 292 150-450 10 3/uL Mean Platelet Volume 10.0 9.5-13.5 fL Neutrophils Percent Auto 68.1 43.0-75.0 % Lymphocytes Percent Auto 21.8 20.5-60.0 % Monocytes Percent Auto 6.5 1.7-12.0 % Eosinophils Percent Auto 2.8 0.9-7.0 % Basophils Percent Auto 0.6 0.2-2.0 % Immature Granulocytes Pct Auto 0.2 0.0-0.5 % Neutrophils Absolute Auto 4.3 1.4-6.5 10 3/uL Lymphocytes Absolute Auto 1.4 1.2-3.8 10 3/uL Monocytes Absolute Auto 0.4 0.3-0.8 10 3/uL Eosinophils Absolute Auto 0.2 0.0-0.7 10 3/uL Basophils Absolute Auto 0.0 0.0-0.1 10 3/uL Immature Granulocytes Abs Auto 0.01 0.00-0.03 10 3/uL Performing Lab: see note ML - [facility] LB TSH Reviewed date:12/26/2023 01:10:51 PM Interpretation: Performing Lab: Notes/Report: [facility] , Thyroid Stimulating Hormone 3.334 0.358-3.740 uIU/mL Performing Lab: see note ML - [facility] LB T4 Reviewed date:12/26/2023 01:10:51 PM Interpretation: Performing Lab: Notes/Report: [facility] , T4 Thyroxine 9.30 4.80-13.90 ug/dL Performing Lab: see note ML - [facility] LB PROF 14(COMP METB) Reviewed date:12/26/2023 01:10:51 PM Interpretation: Performing Lab: Notes/Report: [facility] , Sodium 140 136-145 mmol/L Potassium 4.0 3.5-5.1 mmol/L Chloride 104 98-107 mmol/L Carbon Dioxide 25.5 21.0-32.0 mmol/L Anion Gap 14.5 Glucose 117 74-106 mg/dL Blood Urea Nitrogen 7.0 7.0-18.0 mg/dL Creatinine 0.90 0.55-1.02 mg/dL Estimated GFR ( Nimo >60 >=60 Estimated GFR (Non- Vivian >60 >=60 BUN Creatinine Ratio 7.8 Calcium 9.4 8.5-10.1 mg/dL Bilirubin Total 0.4 0.2-1.0 mg/dL Aspartate Amino Transferase 31 15-37 U/L Alanine Aminotransferase 51 14-59 U/L Alkaline Phosphatase 137 46-116 U/L Total Protein 7.7 6.4-8.2 g/dL Albumin Level 3.4 3.4-5.0 g/dL Globulin 4.3 Albumin Globulin Ratio 0.8 Performing Lab: see note ML - [facility] LB LIPID PROFILE Reviewed date:12/26/2023 01:10:51 PM Interpretation: Performing Lab: Notes/Report: [facility] , Triglycerides 155 <=150 mg/dL Cholesterol 133 <=200 mg/dL HDL Cholesterol 41 40-60 mg/dL > or =60 mg/dl - LOW CARDIOVASCULAR RISK <40 mg/dl - HIGH CARDIOVASCULAR RISK LDL Cholesterol Calculated 61.0 <100 mg/dl OPTIMAL 100-129 mg/dl NEAR OR ABOVE OPTIMAL 130-159 mg/dl BORDERLINE HIGH 160-189 mg/dl HIGH >190 mg/dl VERY HIGH VLDL CHOLESTEROL 31.0 Chol HDL Ratio 3.2 3.3 - 4.4 LOW RISK 4.4 - 7.1 AVERAGE RISK 7.1 - 11.0 MODERATE RISK >11.0 HIGH RISK Performing Lab: see note - [facility] GLYCOHEMOGLOBIN A1C Reviewed date:12/26/2023 01:10:51 PM Interpretation: Performing Lab: Notes/Report: [facility] , Glycohemoglobin A1C 6.0 4.5-6.2 % ADA RECOMMENDED LIMIT 4.0 - 6.0 ADA THERAPEUTIC TARGET < 7.0 ACTION SUGGESTED > 7.0 Estimated Average Glucose 126 Performing Lab: see note - [facility] FREE T3 Reviewed date:12/26/2023 01:10:51 PM Interpretation: Performing Lab: Notes/Report: [facility] , Free T3 3.12 2.18-3.98 pg/mL Performing Lab: see note - [facility] MR cervical spine wo con Reviewed date:05/26/2024 11:58:51 AM Interpretation: Performing Lab: Notes/Report: Source Facility: [facility]-[address] [place] [address] [place] [address] Magnetic Resonance Report Signed Patient: SHAILESH BLAKE MR#: [id number] : 1970 Acct:[id number] Age/Sex: 53 / F ADM Date: 05/26/24 Loc: MRI Attending Dr: Kimber Dow PERSONAL BANKING OFFICER Ordering Physician: Kimber Dow NP Date of Service: 05/26/24 Procedure(s): MR cervical spine wo con Accession Number(s): [id number] cc: ALYSSA JUAREZ ; Kimber Dow NP [place] [id number] Patient Name: SHAILESH BLAKE MRN: [id number] date: 1970 Sex: F Assigned Patient Location: MRI Current Patient Location: MRI Accession/Order Number: [id number] Exam Date: 05/26/2024 08:42 Report Date: 05/26/2024 11:36 At the request of: KIMBER DOW Procedure: MR cervical spine wo con EXAM: MR cervical spine wo con CLINICAL INDICATION: Paresthesia, Upper Extremity Numbness COMPARISON: None TECHNIQUE/PROTOCOL: Standard noncontrast cervical spine protocol MR performed (Sagittal STIR, T1, T2, axial gradient, T2-weighted images). FINDINGS: Spinal Cord: Normal in caliber and signal. Epidural Hematoma: None. Alignment: Normal cervical spine alignment and craniocervical junction. Marrow Signal: Normal. Vertebral Body Heights: Maintained. Paraspinal Soft Tissues: Normal. Neck Soft Tissues: Normal. Spondylotic Changes: Mild multilevel spondylotic changes include varying degrees of disc desiccation, osteophytic ridging, and facet/uncovertebral joint hypertrophy. C2-C3: No disc bulge or herniation. No high-grade spinal canal or foraminal narrowing. C3-C4: No disc bulge or herniation. No high-grade spinal canal or foraminal narrowing. Minimal bilateral facet hypertrophy. C4-C5: No disc bulge or herniation. No high-grade spinal canal or foraminal narrowing. Minimal bilateral facet hypertrophy. C5-C6: Slight disc osteophyte complex indents the ventral thecal sac. Mild spinal canal narrowing. Mild bilateral foraminal narrowing is contributed to by uncovertebral and facet hypertrophy. C6-C7: No disc bulge or herniation. No high-grade spinal canal or foraminal narrowing. C7-T1: No disc bulge or herniation. No high-grade spinal canal or foraminal narrowing. MR/MR cervical spine wo con IMPRESSION: Mild multilevel spondylotic changes without high-grade spinal canal or foraminal narrowing at any cervical level. Electronically authenticated by: LISBETH BROOKS Date: 05/26/2024 11:36 Dictated By: Lisbeth Brooks M.D. Signed By: 05/26/24 1139 DD/ 1136 TD/TT: Health Associate: [place] [address] Magnetic Resonance Report Signed Patient: SHAILESH BLAKE MR#: [id number] : 1970 Acct:[id number] Age/Sex: 53 / F ADM Date: 05/26/24 Loc: MRI Attending Dr: Kimber Dow PERSONAL BANKING OFFICER Ordering Physician: Kimber Dow NP Date of Service: 05/26/24 Procedure(s): MR cervical spine wo con Accession Number(s): [id number] cc: ALYSSA JUAREZ ; Kimber Dow NP [place] [address] Patient Name: SHAILESH BLAKE MRN: [id number] date: 1970 Sex: F Assigned Patient Location: MRI Current Patient Location: MRI Accession/Order Number: [id number] Exam Date: 05/26/2024 08:42 Report Date: 05/26/2024 11:36 At the request of: KIMBER DOW Procedure: MR cervic al spine wo con EXAM: MR cervical spine wo con CLINICAL INDICATION: Paresthesia, Upper Extremity Numbness COMPARISON: None TECHNIQUE/PROTOCOL: Standard noncontrast cervical spine protocol MR performed (Sagittal STIR, T1, T2, axial gradient, T2-weighted images). FINDINGS: Spinal Cord: Normal in caliber and signal. Epidural Hematoma: None. Alignment: Normal cervical spine alignment and craniocervical junction. Marrow Signal: Normal. Vertebral Body Heights: Maintained. Paraspinal Soft Tissues: Normal. Neck Soft Tissues: Normal. Spondylotic Changes: Mild multilevel spondylotic changes include varying degrees of disc desiccation, osteophytic ridging, and facet/uncovertebral joint hypertrophy. C2-C3: No disc bulge or herniation. No high-grade spinal canal or foraminal narrowing. C3-C4: No disc bulge or herniation. No high-grade spinal canal or foraminal narrowing. Minimal bilateral facet hypertrophy. C4-C5: No disc bulge or herniation. No high-grade spinal canal or foraminal narrowing. Minimal bilateral facet hypertrophy. C5-C6: Slight disc osteophyte complex indents the ventral thecal sac. Mild spinal canal narrowing. Mild bilateral foraminal narrowing is contributed to by uncovertebral and facet hypertrophy. C6-C7: No disc bulge or herniation. No high-grade spinal canal or foraminal narrowing. C7-T1: No disc bulge or herniation. No high-grade spinal canal or foraminal narrowing. MR/MR cervical spine wo con IMPRESSION: Mild multilevel spondylotic changes without high-grade spinal canal or foraminal narrowing at any cervical level. Electronically authenticated by: LISBETH BROOKS Date: 05/26/2024 11:36 Dictated By: Lisbeth Brooks M.D. Signed By: 05/26/24 1139 DD/ 1136 TD/TT: Health Associate: INSULIN Reviewed date:12/26/2023 01:10:51 PM Interpretation: Performing Lab: Notes/Report: [facility] , Insulin 49.5 2.6-24.9 uIU/mL Performed at: [facility] [address] [id number] Duplicating Machine Operator: Drew Katz PhD, Phone: [phone] Performing Lab: see note - [facility] LB Reason For Referral No Information Medications Medication SIG (Take, Route, Frequency, Duration) Notes Start Date End Date Status Ingrezza 80 MG 1 capsule Orally Onc e a day 11/22/2024 Active Chlorthalidone 25 MG 1/2 tablet in the morning with food Orally for 30 days 06/09/2024 Active busPIRone HCl 30 MG 1 tablet Orally Twic e a day 11/22/2024 Active Albuterol Sulfate HFA 108 (90 Base) MCG/ACT INHALE 1 PUFF INTO THE LUNGS EVERY 4 HOURS NEEDED FOR 30 DAYS for 30 Active Simvastatin 40 MG TAKE 1 TABLET BY ALYSE TH EVERYDAY AT NIGHT for 30 Active Allergy Active Benztropine Mesylate 0.5 MG 1 tablet Ora lly twice daily for 30 days Active Cranberry Active Omeprazole 40 MG TAKE 1 CAPSULE BY MO UTH TWICE A DAY for 30 Active Cinnamon Active Rexulti 4 MG 1 tablet Orally Once a day for 30 day(s) Active Flaxseed Oil Active Gen Active metFORMIN HCl 500 MG 1 tablet with a samson l Orally Once a day for 30 days Active Mupirocin 2 % 1 application Medical Office Receptionist ally Twice a day for 5 days 11/22/2024 Active Hair Skin & Nails Ac tive Fluticasone Propionate 50 MCG/ACT 1 spray in each nostril Nasally Once a day for 30 day(s) PRN Active Venlafaxine HCl ER 150 MG 2 capsule with food Orally Once a day for 30 days Active Turmeric Active Gabapentin 400 MG 1 capsule Orally 2-3 times daily for 30 days Active Apple Cider Vinegar Active Social History Tobacco Use: Social History Observation Description Date Details (start date - stop date) Never Smoker NA - NA Tobacco Use/Smoking Question Answer Notes Patient is a nonsmoker Alcohol Screen (Audit-C) Question Answer Notes Did you have a drink containing alcohol in the p ast year? No Points 0 Interpretation Negative AUDIT-C (Standard) Question Answer Notes Did you have a drink containing alcohol in the p ast year? 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 confirmed Problem Snoring (43850017) Snoring (R06.83) Active conf irmed Problem Body mass index 40+ - severely obese (126932310) Body mass index (BMI) 45.0-49.9, adult (Z68.42) Active confirmed Problem Gastroesophageal reflux disease (392726380) GERD (gastroesophageal reflux disease) (K21.9) Active confirmed Problem Dyspnea (888374387) SOB (shortne ss of breath) (R06.02) Active confirmed Problem Hypertension (22536324) HTN (hypertension) (I10) Active confirmed Problem Arthritis (2534701) Arthritis (M19.90) Active c onfirmed Problem Urinary tract infectious disease (89965604) UTI (urinary tract infection) (N39.0) Active confirmed Problem Vitamin D deficiency (15248524) Vitamin D deficiency (E55.9) Active confirmed Problem Migraine (06816196) Migraine (G43.909) Active c onfirmed Problem Irritable bowel syndrome (07615072) IBS (irritable bowel syndrome) (K58.9) Active confirmed Problem Weight gain (836664788) Weight gain (R63.5) Active confirmed Problem Mixed anxiety and depressive disorder (042223106) Depression with anxiety (F41.8) Active confirmed Problem Chronic migraine (093686068) Chronic migraine (G43.709) Active confirmed Problem Epigastric discomfort (251505293) Epigastric discomfort (R10.13) Active confirmed Problem Canker sore (390477044) Canker sore (K12.0) Active confirmed Problem Hyperinsulinemia (02313910) Hyperinsulinemia (E16.1) Active confirmed Problem Sore mouth (537520296) Sore mouth (K13.79) Active confirmed Problem 009057288 Menopausal hot flushes (N95.1) Active confirmed Problem Somnolence (23951350) Somnolence, daytime (R40.0) Active confirmed Problem Prediabetes (428700350) Pre-diabetes (R73.03) Active confirmed Problem Electrocardiogram abnormal (488068026) Abnormal electrocardiogram during exercise stress test (R94.31) Active confirmed Problem Osteoarthritis of knee (698452961) Osteoarthritis of left knee (M17.12) Active confirmed Problem COVID-19 (970049730) COVID-19 (U07.1) Active confirmed Problem Morbid obesity (116600929) Class 3 obesity (E66.01) Active confirmed Vital Signs Temperature 98.2 degrees Fahrenheit 06/09/2024 Blood pressure diastolic 88 mm Hg 11/22/2024 Height 68 in 11/22/2024 Blood pressure systolic 122 mm Hg 11/22/2024 Weight 346.0 lbs 11/22/2024 BMI 52.6 kg/m2 11/22/2024 Encounters Encounter Location Date Provider Diagnosis [address] [place] [address] 12/25/2023 Alyssa Juarez Wellness examination Z00.00 [facility] [address] [place] [address] 06/23/2024 Alyssa Juarez Class 3 obesity E66.[address] [place] [address] 06/09/2024 Alyssa Juarez HTN (hypertension) I10 ; Class 3 obesity E66.01 ; URI (upper respiratory infection) J06.9 and Vitamin D deficiency E55.9 [facility] [address] [place] [address] 07/21/2024 Alyssa Juarez Class 3 obesity E66.01 and Canker sore K12.0 [facility] [address] [place] [address] 08/23/2024 Alyssa Juarez Class 3 obesity E66.01 [place] [address] [place] [address] 11/22/2024 Alyssa Juarez Wellness examination Z00.00 and IBS (irritable bowel syndrome) K58.9 [address] [place] [address] 12/26/2023 Alyssa Juarez [address] [place] [address] 03/11/2024 Alyssa Juarez Assessments Encounter Date Diagnosis (ICD Code) Assessment Notes Treatment Notes Treatment Clinical Notes Section Notes 12/25/2023 Wellness examination (ICD-10 - Z00.00) ROS done exam done cologuard neg last year labs ordered states current with pap and mammogram 06/23/2024 Class 3 obesity (ICD-10 - E66.01) discussed SE, stop med if needed work on diet, discussed fu one month 06/09/2024 HTN (hypertension) (ICD-10 - I10) 06/09/2024 Class 3 obesity (ICD-10 - E66.01) handouts given work on BP start Adipex? fu 2 weeks 07/21/2024 Canker sore (ICD-10 - K12.0) 07/21/2024 Class 3 obesity (ICD-10 - E66.01) work on diet, increase activity fu 1m 08/23/2024 Class 3 obesity (ICD-10 - E66.01) try OTC Gen work on diet 11/22/2024 IBS (irritable bowel syndrome) (ICD-10 - K58.9) discussed diet decrease sweet tea handouts given on IBS 11/22/2024 Wellness examination (ICD-10 - Z00.00) ROS done exam done recent mammogram due for pap, ester Lordo 06/09/2024 URI (upper respiratory infection) (ICD-10 - J06.9) likely viral continue OTC meds 06/09/2024 Vitamin D deficiency (ICD-10 - E55.9) Plan Of Treatment Pending Test Test Name Order Date CMP (COMPLETE METABOLIC PANEL) 3 CMP (COMPLETE METABOLIC PANEL) 4 UA (URINALYSIS, COMPLETE) 06/30/2023 HEMOGLOBIN A1C (GLYCO) 12/25/2023 HEMOGLOBIN A1C (GLYCO) 12/10/2022 HEMOGLOBIN A1C (GLYCO) 11/22/2024 INSULIN, TOTAL 12/25/2023 IRON, TOTAL 12/10/2022 IRON, TOTAL 11/22/2024 LIPID PANEL (CHOL/TRIG/HDL/LDL) 11/23/19 25 LIPID PANEL (CHOL/TRIG/HDL/LDL) 12/11/19 23 LIPID PANEL (CHOL/TRIG/HDL/LDL) 12/25/19 24 CBC WITH DIFF 12/25/2023 CBC WITH DIFF 12/10/2022 VITAMIN D, 25 LEVEL (TOTAL) 12/10/2022 VITAMIN D, 25 LEVEL (TOTAL) 12/25/2023 VITAMIN D, 25 LEVEL (TOTAL) 11/22/2024 Urine Culture 07/03/2023 URINE CULTURE 06/30/2023 Insulin Level 12/10/2022 Insulin Level 11/22/2024 COVID-19, Flu A+B IH 06/09/2024 C. DIFF PCR 07/16/2023 SNR 04 URINALYSIS 07/03/2023 STOOL CULTURE 07/16/2023 THYROID PANEL (T4/TSH/FREE T3) 5 THYROID PANEL (T4/TSH/FREE T3) 4 THYROID PANEL (T4/TSH/FREE T3) 3 CMP (COMP MET STEIN) w/eGFR CKD-EPI 2024 CBC WITH DIFF 11/22/2024 Next Appt Details Provider Name:Alyssa vincent, 02/22/2025 10:30:00 AM, [address] [facility] [address], [place], [address], Insurance Providers Payer Name Payer Address Payer Phone Subscriber Number Group Number Insured Name Patient Relationship to Insured Coverage Start Date Coverage End Date [employer] [place] [employer] [address] [address] [place] [address] [id number] Shailesh Blake Self - patient is the insured 3 Medical (General) History Medical History History ICD Code Menopausal hot flushes N95.1 Overweight E66.3 SOB (shortness of breath) R06.02 Weight gain R63.5 Hyperinsulinemia E16.1 Sore mouth K13.79 Epigastric discomfort R10.13 Somnolence, daytime R40.0 Snoring R06.83 COVID-19 U07.1 Abnormal electrocardiogram during exerci se stress test R94.31 Chronic migraine G43.709 Body mass index (BMI) 45.0-49.9, adult Z 68.42 Vitamin D deficiency E55.9 GERD (gastroesophageal reflux disease) K 21.9 Arthritis M19.90 Depression with anxiety F41.8 Disorder of bile acid and cholesterol me tabolism, unspecified E78.70 Seizure R56.9 Bilateral edema of lower extremity R60.0 Migraine G43.909 Chest wall pain R07.89 Surgical History Surgery Date(Month/Year) gallbladder rt shuolder x2 Epidural injections Hospitalization History Reason Date(Month/Year) See above
--- OUTSIDE RECORDS SUMMARY | 2024-11-23 09:27 | XMS_ITS | Encounter Summary ---
Author Organization [facility] Address [address] [facility] [place] [address] Care Team Providers Care Carpenters Supervisor Name Role Phone Alyssa Juarez MD Unavailable [phone] Leon Jerez DO Unavailable [phone] Unallocated, Nomandre Provider Primary Care Provi kallie Encounter Details Date Type Department Care Team (Late st Contact Info) Description 02/12/2024 Orders Only [facility] [address] [place] [phone] Odessa Lancaster DO Social History Tobacco Use Types Packs/Day Years Used Date Smoking Tobacco: Never Smokeless Tobacco: Never Alcohol Use Standard Drinks/Week Comments Never 0 (1 standard drink = 0.6 oz pur e alcohol) Comments Unknown Sex and Gender Information Value Date Recorded Sex Assigned at Not on file Legal Sex Female 6:38 PM EDT Gender Identity Not on file Sexual Orientation Not on file documented as of this encounter Plan of Treatment Not on file documented as of this encounter Procedures Procedure Name Priority Date/Time Associated Diagnosis Comments EMG AND NERVE CONDUCTION STUDY Routine 06/21/2013 1:58 PM EST documented in this encounter Results * EMG AND NERVE CONDUCTION STUDY (06/21/2013 1:58 PM EST) Odessa Lancaster DO NEUROLOGY ORDERABLES Final Resu lt documented in this encounter Visit Diagnoses Not on filedocumented in this encounter Care Teams Carpenters Supervisor Relationship Specialty Start Date End Date Unallocated, Noms ProviderMD [address] [place] [address] PCP - General Family Medicine 05/05/24 Alyssa Juarez MD [address] [place], [place] [id number] Referring Physician Family Medicine 09/24/23 Leon Jerez DO [address] [address] Referring Physician Neurology 03/04/24 documented as of this encounter
--- OUTSIDE RECORDS SUMMARY | 2024-11-23 09:27 | XMS_ITS | Clinical Summary ---
Author Organization [facility] Address [id number] [address] [place] [address] Care Team Providers Care Superintendent Car Construction Name Role Phone Unavailable Primary Care Provider Unavailabl e Social History Tobacco Use Types Packs/Day Years Used Date Smoking Tobacco: Never Assessed Childcare Answer Date Recorded Childcare Unknown 10/07/2018 Employment Answer Date Recorded Employment Unknown 10/07/2018 Comments Unknown Sex and Gender Information Value Date Recorded Sex Assigned at Not on file Legal Sex Female 11:47 AM EDT Gender Identity Not on file Sexual Orientation Not on file Plan of Treatment Not on file Medical Devices Not on file
--- OUTSIDE RECORDS SUMMARY | 2024-11-23 09:27 | XMS_ITS | Clinical Summary ---
Author Organization [facility] Address [address] [place] [address] Care Team Providers Care Awning Craftsperson Name Role Phone Alyssa Juarez MD Unavailable [phone] Leon Jerez DO Unavailable [phone] Unallocated, [facility] Provider Primary Care Provi kallie Allergies Active Allergy Reactions Criticality Noted Date Comments Aspirin 09/24/2023 Wound Dressing Adhesive 09/24/2023 Medications cyanocobalamin (Vitamin B-12) 1000 MCG tablet Take 1,000 mcg by mouth Daily Active gabapentin (Neurontin) 400 MG capsule Take 400 mg by mouth in the morning and 400 mg in the evening and 400 mg before bedtime. Active spironolactone (Aldactone) 50 MG tablet Take 50 mg by mouth Daily 4 Active Rexulti 4 MG tablet Take 4 mg by mouth Daily 4 Active lamoTRIgine (LaMICtal) 200 MG tablet Take 1 tablet by mouth Daily Active busPIRone (Buspar) 10 MG tablet Take 10 mg by mouth in the morning and 10 mg before bedtime. Active simvastatin (Zocor) 40 MG tablet Take 40 mg by mouth at bedtime Active acetaZOLAMIDE (Diamox) 250 MG tablet Take 250 mg by mouth Daily Active albuterol HFA 90 mcg/act inhaler 1 puff every 4 (four) hours if needed Active aspirin-acetamin ophen-caffeine (Excedrin Migraine) 250-250-65 MG tablet Take 2 tablets by mouth every 8 (eight) hours if needed Active cetirizine (ZyrTEC ALLERGY) 10 MG tablet Take 10 mg by mouth Daily Active diclofenac sodium 1 % gel Apply 2 g topically in the morning and 2 g at noon and 2 g in the evening and 2 g before bedtime. Active dicyclomine (Bentyl) 20 MG tablet Take 20 mg by mouth 4 (four) times a day as needed Active fluticasone (Flonase) 50 MCG/ACT nasal spray Administer 1 spray into each nostril Daily Active meclizine (Antivert) 25 MG tablet Take 25 mg by mouth 3 (three) times a day as needed for dizziness 4 Active oxybutynin XL (Ditropan-XL) 5 MG 24 hr tablet Take 5 mg by mouth Daily Active potassium chloride CR (KLOR-CON) 20 MEQ ER tablet Take 20 mEq by mouth Daily Active promethazine (Phenergan) 25 MG tablet Take 25 mg by mouth every 12 (twelve) hours Active Elastic Bandages & Supports (Wrist Splint/Cock-Up/L eft L) miscIndications: Carpal tunnel syndrome of left wrist Wear left cock-up wrist splint at bedtime 1 each 4 Active metFORMIN (Glucophage) 500 MG tablet Take 500 mg by mouth Daily Active lamoTRIgine (LaMICtal) 100 MG tablet Take 1 tablet by mouth Daily Active omeprazole (PriLOSEC) [address] capsule Take 40 mg by mouth in the morning and 40 mg before bedtime. 5 Active Ingrezza 80 MG capsule Take 80 mg by mouth Daily 5 Active venlafaxine XR (Effexor XR) 150 MG 24 hr capsule Take 300 mg by mouth Daily 5 Active Zavegepant HCl (Zavzpret) 10 MG/ACT solutionIndicati ons:Migraine without aura and without status migrainosus, not intractable Administer 10 mg into affected nostril(s) Daily as needed (migraine) Take no more than 1 time in 24 hours. Take no more than six doses per month. 6 each 5 5 03/19/20 25 Active Active Problems Problem Noted Date Diagnosed Date Migraine without aura and wi thout status migrainosus, not intractable 09/24/2023 Overview (09/24/2023): Headaches currently daily to some extent, often she has some associated photophobia, feels like she does not want to move. Usually are right-sided. Overall most consistent with migraine. Would also give consideration to idiopathic intracranial hypertension. She responded very nicely to Ajovy but initially insurance wouldn't approve it. Aimovig wasn't effective. Emgality decreased severity but not frequency. - PLAN - We will try to get Ajovy approved; sample provided today - Continue venlafaxine 150 mg extended release daily (depression, migraine prophylaxis, fibromyalgia) - She is also on lamotrigine and gabapentin - Continue to use rizatriptan 10 mg as needed - Can use Fioricet very sparingly - Consider verapamil or botox? Fibromyalgia 09/24/2023 Overview (09/24/2023): Treated with gabapentin. Of note, the patient is also taking lamotrigine for bipolar disorder (she has reportedly had one seizure in the past, though details surrounding this are unclear to me, and MRI of the brain was unremarkable for epileptogenic focus). CARLOS (obstructive sleep apnea) 09/24/2023 Overview (09/24/2023): The patient has a history of CARLOS with CPAP use. CPAP has helped reduce the frequency of her morning headaches. PLAN: - Continue close follow up with sleep medicine - I encouraged compliance with CPAP Carpal tunnel syndrome of left wrist 09/24/2023 Overview (09/24/2023): The patient reports a history of bilateral CTS. She tells me she is status post carpal tunnel release on the right multiple years ago with symptom improvement. She states she declined to undergo left carpal tunnel release and reports some intermittent paresthesias in the left hand. PLAN: - May utilize cock-up wrist splint at bedtime to help with symptoms - I encouraged the patient to follow up with orthopedic surgery for management Paresthesia 09/24/2023 Overview (09/24/2023): Documented possible neuropathy in her feet? Reportedly, previous EMG was years ago. Records of this are unavailable to me, and the patient denies any recent paresthesias in her bilateral feet. She is on gabapentin which may be helping. Chronic migraine without aur a without status migrainosus, not intractable 09/24/2023 Overview (09/24/2023): It is my impression that the patient has chronic migraine with onset at 17 years of age. MRI of the brain on 05/15/23 was unremarkable for secondary cause. MRI did reveal nonspecific white matter changes which may be related to migraine or microvascular ischemic changes. Ajovy, Aimovig, Depakote, and topiramate did not provide significant benefit for migraine prevention in the past. Rizatriptan and naratriptan were minimally effective. The patient believes her migraines are well controlled on the current regimen. PLAN: - Continue Emgality 120 mg subcutaneous once a month for migraine prevention - Continue Ubrelvy 50 mg PO as needed for migraine (seemingly more effective than triptans) - The patient is taking lamotrigine and venlafaxine (prescribed for other purposes but don't seem to be beneficial from a migraine standpoint) - I recommended adequate hydration, sleep hygiene, and regular physical activity as tolerated Encounters Date Type Department Care Team Description 09/22/2024 Telephone [facility] [address] [phone] Wenceslao Carballo ARRT Needs migraine shot 09/20/2024 Telephone [facility] [address] [phone] Cheyanne Schilling NP Emgality 09/15/2024 9:40 AM EDT Office Visit [facility] [address] [phone] Cheyanne Schilling NP Migraine without aura and without status migrainosus, not intractable (Primary Dx); CARLOS (obstructive sleep apnea); Lumbar radiculopathy; Degeneration of intervertebral disc of lumbar region, unspecified whether pain present; Neck pain; Polypharmacy; Seizure (HCC) from Last 3 Months Family History Medical History Relation Name Comments Depression Other Hyperlipidemia Other Migraines Other Relation Name Status Comments Other Social History Tobacco Use Types Packs/Day Years Used Date Smoking Tobacco: Never Smokeless Tobacco: Never Tobacco Cessation:Counseling Given: Not Answered Alcohol Use Standard Drinks/Week Comments Not Currently 0 (1 standard drink = 0.6 oz pur e alcohol) Comments Unknown Sex and Gender Information Value Date Recorded Sex Assigned at Not on file Legal Sex Female 6:38 PM EDT Gender Identity Not on file Sexual Orientation Not on file Last Filed Vital Signs Vital Sign Reading Time Taken Comments Blood Pressure 141/95 09/15/2024 9:55 AM EDT Pulse 79 09/15/2024 9:55 AM EDT Temperature - - Respiratory Rate 18 09/25/2023 5:44 AM EDT Oxygen Saturation 99% 06/03/2024 1:19 PM EST Inhaled Oxygen Concentration - - Weight 160 kg (353 lb) 09/15/2024 9:55 AM EDT Height 172.7 cm (5' 8 ) 05/05/2024 11:09 AM EST Body Mass Index 53.67 05/05/2024 11:09 AM EST Plan of Treatment Health Maintenance Due Date Last Done Comments CT Colonography 1969 Colonoscopy 1969 Colorectal Cancer Screening 1969 FIT-DNA 1969 FIT 1969 FOBT 1969 Sigmoidoscopy 1969 HPV/Cotest 12/24/1999 Mammogram 2009 Influenza Vaccine (#1) 2024 01/09/2015 Cervical Cancer Screening 08/05/2025 Pap Smear 08/05/2025 08/05/2022 Procedures Procedure Name Priority Date/Time Associated Diagnosis Comments PAP SMEAR Routine 08/05/2022 12:00 AM EDT from Last 3 Months or Most Recently Relevant to Health Maintenance Results * Pap Smear (08/05/2022 12:00 AM EDT) Swab Cervical swab / Unknown [facility] Ob LAB CYTOLOGY ORDERABLES Final Result EXTERNAL LAB from Last 3 Months or Most Recently Relevant to Health [place] [address] [facility] MEDICAID [place] Care Teams Awning Craftsperson Relationship Specialty Start Date End Date Unallocated, [facility] Provider, [address] [place], [place] [id number] PCP - General Family Medicine 05/05/24 Alyssa Juarez MD [address] [place] [address] Referring Physician Family Medicine 09/24/23 Leon Jerez DO [address] [address] Referring Physician Neurology 03/04/24
--- OUTSIDE RECORDS SUMMARY | 2024-11-23 09:27 | XMS_ITS | Clinical Summary ---
Author Organization [facility] Address [address] [place] [address] Care Team Providers Care Director Of Channel Marketing Name Role Phone Unavailable Primary Care Provider Unavailabl e Social History Tobacco Use Types Packs/Day Years Used Date Smoking Tobacco: Never Assessed AR Safety & Environment Answer Date Rec orded Fear of Current or Ex-Partner Not on file Emotionally Abused Not on file 06/19/2023 Physically Abused Not on file 06/19/2023 Sexually Abused Not on file 06/19/2023 Physically or Sexually Abused Not on file Comments Unknown Sex and Gender Information Value Date Recorded Sex Assigned at Not on file Legal Sex Female 9:47 PM EDT Gender Identity Not on file Sexual Orientation Not on file Last Filed Vital Signs Vital Sign Reading Time Taken Comments Blood Pressure 135/94 01/22/2021 11:37 AM EDT Pulse - - Temperature - - Respiratory Rate - - Oxygen Saturation 95% 01/22/2021 11:31 AM EDT Inhaled Oxygen Concentration - - Weight 138 kg (305 lb) 01/22/2021 11:27 AM EDT Height 172.7 cm (5' 8 ) 01/22/2021 11:27 AM EDT Body Mass Index 46.37 01/22/2021 11:27 AM EDT Plan of Treatment Health Maintenance Due Date Last Done Comments CT Colonography 1969 Colonoscopy 1969 Colorectal Cancer Screening 1969 FIT-DNA 1969 FIT 1969 FOBT 1969 Sigmoidoscopy 1969 Depression Screening 1981 Hepatitis B Vaccines (1 of 3 - 19+ 3-dose series) 1988 Pap Smear 1990 Adult Tetanus 12/24/1991 Cervical Cancer Screening 12/24/1999 HPV/Cotest 12/24/1999 Mammogram 2009 Zoster Vaccines (1 of 2) 12/24/2019 Influenza Vaccine (#1) 2024 HIB Vaccines Aged Out No longer eligi ble based on patient's age to complete this topic HPV Vaccines Aged Out No longer eligi ble based on patient's age to complete this topic IPV Vaccines Aged Out No longer eligi ble based on patient's age to complete this topic Meningococcal B Vaccine Aged Out No l onger eligible based on patient's age to complete this topic Meningococcal Vaccine Aged Out No pat tala eligible based on patient's age to complete this topic Pneumococcal Vaccine: Pediat rics (0 to 5 Years) and At-Risk Patients (6 to 64 Years) Aged Out No longer eligible b ased on patient's age to complete this topic Rotavirus Vaccines Aged Out No longer eligible based on patient's age to complete this topic Insurance [employer]
--- OUTSIDE RECORDS SUMMARY | 2024-11-23 09:27 | XMS_ITS | Clinical Summary ---
Author Organization [facility] Address [address], [address] [place] [address] Care Team Providers Care Multimedia Engineer Name Role Phone Winston Cardona MD Primary Care Provider + Social History Tobacco Use Types Packs/Day Years Used Date Smoking Tobacco: Never Assessed Comments Unknown Sex and Gender Information Value Date Recorded Sex Assigned at Not on file Legal Sex Female 1:51 PM EST Gender Identity Not on file Sexual Orientation Not on file Plan of Treatment Not on file Care Teams Multimedia Engineer Relationship Specialty Start Date End Date Winston Cardona MD PCP - General 11/08/14
--- OUTSIDE RECORDS SUMMARY | 2024-11-23 09:27 | XMS_ITS | Encounter Summary ---
Author Organization [facility] Address [address] [facility] [place] [address] Care Team Providers Care Back Joiner Name Role Phone Alyssa Juarez MD Unavailable [phone] Leon Jerez DO Unavailable [phone] Unallocated, [facility] Provider Primary Care Provi kallie Encounter Details Date Type Department Care Team (Late st Contact Info) Description 12/10/2023 Orders Only [facility] [address] [place] [address] Chanelle Souza LPN [address] [place] [id number] Social History Tobacco Use Types Packs/Day Years [...] PAP SMEAR Routine 08/05/2022 12:00 AM EDT documented in this encounter Results * Pap Smear (08/05/2022 12:00 AM EDT) Swab Cervical swab / Unknown us [facility] Ob LAB CYTOLOGY ORDERABLES Final Result EXTERNAL LAB documented in this encounter Visit Diagnoses Not on filedocumented in this encounter Care Teams Back Joiner Relationship Specialty Start Date End Date Unallocated, [facility] Provider, [address] [place] [address] PCP - General Family Medicine 05/05/24 Alyssa Juarez MD [address] [place] [address] Referring Physician Family Medicine 09/24/23 Leon Jerez DO [address] [address] Referring Physician Neurology 03/04/24 documented as of this encounter
[2024-11-23 09:46] LABS: Hematocrit 45.6 % (36.0-48.0); Hemoglobin 15.6 g/dL (12.0-16.0); Immature Granulocytes Abs Auto 0.01 10^3/uL (0.00-0.03); Immature Granulocytes Pct Auto 0.2 % (0.0-0.5); Lymphocytes Absolute Auto 1.7 10^3/uL (1.2-3.8); Mean Corpuscular HGB Conc 34.2 g/dL (29.9-35.2); Mean Corpuscular Hemoglobin 30.1 pg (26.7-34.0); Mean Corpuscular Volume 87.9 fL (81.0-99.0); Platelet Count 307 10^3/uL (150-450); Red Blood Count 5.19 10^6/uL (4.20-5.40); White Blood Count 6.1 10^3/uL (4.0-11.0)
--- OUTSIDE RECORDS SUMMARY | 2024-11-23 09:46 | XMS_ITS | CCD ---
Author Organization [facility] Care Team Providers Care Cyanide Pot Tender Name Role Phone ELTAHAWY, EHAB A Admitting Unavailable ELTAHAWY, EHAB A Attending Unavailable ALYSSA ARREOLA Primary Care Unavailable ALYSSA ARREOLA Referring Unavailable ALYSSA ARREOLA Primary Care Physician Asif Cox Unavailable Destini Kilgore Unavailable Mellissa Strange Unavailable MATTHIAS Arreola Primary Care Provider [phone] MD Asif Cox Attending Provider MATTHIAS Arreola Primary Care Provider MD Asif Cox Attending Provider MATTHIAS Arreola Primary Care Provider MD Asif [...] Primary Care Unavailable MAXWELL, ALYSSA Admitting Unavailable ALYSSA ARREOLA Attending Unavailable MAXWELL, ALYSSA Consulting Unavailable MAXWELL, ALYSSA Primary Care Unavailable DIAB ., FRANNIE Admitting Unavailable MELLISSA PRIEST Consulting Unavailable MAXWELL, ALYSSA Primary Care Unavailable DIAB ., FRANNIE Attending Unavailable DIAB ., FRANNIE Consulting Unavailable HAY ., DR DELACRUZ Admitting Unavailable HAY ., DR DELACRUZ Attending Unavailable HAY ., DR DELACRUZ Consulting Unavailable MAXWELL, ALYSSA Primary Care Unavailable STRAWSER, CHELY Consulting Unavailable MAXWELL, ALYSSA Primary Care [...] ALYSSA Attending Unavailable MAXWELL, ALYSSA Consulting Unavailable ANTONELLAT, SUSIE Admitting Unavailable SEAN, SUSIE Attending Unavailable SPROUHali, SUSIE Consulting Unavailable MAXWELL, ALYSSA Primary Care Unavailable SOLITARIO ., DR KIDD Admitting Unavailable SOLITARIO ., DR KIDD Attending Unavailable SOLITARIO ., DR KIDD Consulting Unavailable MAXWELL, ALYSSA Primary Care Unavailable SOLITARIO ., DR KIDD Admitting Unavailable MAXWELL, ALYSSA Primary Care Unavailable SOLITARIO ., DR KIDD Attending Unavailable Maxwell, ADONAY-C Alyssa Lesly Primary Care Provider ADONAY Kilgore Attending Provider [phone] MATTHIAS Arreola Alyssa Lesly Primary Care Provider MD Alexey Maki Attending Provider [phone] MD Asif Cox Attending Provider [phone] Dioni Flores Primary Care Physician MATTHIAS Arreola Alyssa Lesly Primary Care Provider MD Alexey Maki Attending Provider [phone] MATTHIAS Arreola Alyssa Lesly Primary Care Provider MD Asif Cox Attending Provider Maxwell, SENIOR STOCK PLAN ADMINISTRATOR-C Alyssa Lesly Primary Care Provider MD Alexey Maki Attending Provider MTATHIAS Arreola Alyssa Lesly Primary Care Provider MD Alexey Maki Attending Provider ADONAY Kilgore Attending Provider MATTHIAS Arreola Alyssa Lesly Primary Care Provider MD Alexey Maki Attending Provider MD Alexey Maki Attending Provider Maxwell JARAMILLO, Alyssa Unavailable JOSE ELIAS MIRAMONTES Attending Unavailab le THERESA, JOSE ELIAS Buenrostro Admitting Unavailab le THERESA, JOSE ELIAS Buenrostro Admitting Unavailab le THERESA, JOSE ELIAS Buenrostro Attending Unavailab le THERESA, JOSE ELIAS Buenrostro Attending Unavailab le THERESA, JOSE ELIAS Buenrostro Attending Unavailab le GASTON, Hermilo Yu Attending Unavailable THERESA, JOSE ELIAS CHAUDHARI E Attending Unavailab le THERESA, JOSE ELIAS Buenrostro Attending Unavailab le GASTON, Hermilo R Admitting Unavailable GASTON, Hermilo R Attending Unavailable GASTON, Hermilo R Referring Unavailable MD Alexey Maki Attending Provider MD Asif Cox Attending Provider Joel Jerez DO Unavailable Unallocated , Noms Provider Primary Care Provi kallie Maxwell SENIOR STOCK PLAN ADMINISTRATORLgC, Alyssa Lesly Primary Care Provider [phone] Alexey Maki MD Attending Provider [phone] Maxwell SENIOR STOCK PLAN ADMINISTRATOR-C, Alyssa Lesly Primary Care Provider Alexey Maki MD Attending Provider CHEYANNE SCHILLING Attending Unavailable CHEYANNE SCHILLING Attending Unavailable SHAKIR, CHEYANNE Attending Unavailable SHAKIR, CHEYANNE Attending Unavailable JOEL JEREZ Attending Unavailable SCHILLING, CHEYANNE Attending Unavailable TANK LANCASTER Attending Unavailable SHAKIR, CHEYANNE Attending Unavailable JOSE ELIAS MIRAMONTES Attending Unavailab JOSE ELIAS Reina Attending Unavailab JOSE ELIAS Reina Admitting Unavailab robert GREENEC, Alyssa Grace Primary Care Provider Alexey Maki MD Attending Provider Alyssa Arreola Primary Care Unavailable Asif Cox S Admitting Unavailable Asif Cox Attending Unavailable Destini Kilgore Attending Unavailable Alyssa Arreola Lesly Primary Care Unavailable Destini Kilgore Admitting Unavailable Alyssa Arreola Lesly Primary Care Unavailable Alexey Maki Admitting Unavailab Alexey [place] Attending Unavailab robert Allergies Allergy Classification Reported Allergen(s) Allergy Type Date of Onset Reaction(s) Facility (20 sources) Aspirin; Translations: [aspirin] Drug Allergy 2 Tremor (finding) [facility] Other Comment on above: tremors (15 sources) Desonide; Translations: [desonide topical] Drug Allergy 3 Unknown [facility] (11 sources) Tape 1 Drug allergy Eruption of skin (disorder) [facility] Comment on above: adhesive (18 sources) Adhesive Tape; Translations: [adhesive tape] Allergy to substance 2 Rash [facility] (2 sources) Aspirin Drug Allergy 3 [facility] (20 sources) Aluminum aspirin Drug Allergy 4 [facility] (20 sources) Wound Dressing Adhesive Propensity to adverse reactions 4 [facility] (2 sources) Adhesive Tape; Translations: [Tape] Propensity to adverse reactions (disorder) [facility] (1 source) Aspirin Drug Allergy 5 [facility] Medications Current Medications Medication Drug Class(es) Dates Sig (Normalized) Sig (Original) acetaminophen 250 mg / aspirin 250 mg / caffeine 65 mg oral tablet (20 sources) Platelet Aggregation Inhibitor, Nonsteroidal Anti-inflammatory Drug, Central Nervous System Stimulant, Methylxanthine take 2 tablets by mouth every eight hours as needed aspirin-acetaminop hen-caffeine (Excedrin Migraine) 250-250-65 MG tablet Take 2 tablets by mouth every 8 (eight) hours if needed Active acetaZOLAMIDE 250 mg oral tablet (20 sources) Carbonic Anhydrase Inhibitor take 1 tablet by mouth once daily acetaZOLAMIDE (Diamox) 250 MG tablet Take 250 mg by mouth Daily Active Aimovig SureClick 70 mg/mL subcutaneous solution (2 sources) Start: 08-09-2021 Aimovig SureClick 70 mg/mL subcutaneous solution 70 mg Start Date: 08/09/21 Status: Ordered [id number] 200 actuat albuterol 0.09 mg/actuat metered dose inhaler (20 sources) beta2-Adrenergic Agonist Start: 07-08-2024 Albuterol Sulfate 90 mcg/actuation HFA aerosol inhaler Active 1 INH INHALATION Every 6 hours July 08, 2024 12:00am Start: 05-28-2023 Albuterol (Eqv -ProAir HFA) Inhalation, q6hr Start Date: 05/28/23 Status: [...] End: 03-10-2024 take 1 tablet by mouth twice daily Benztropine 0.5 mg tablet Active 0.5 MG PO Twice daily March 06, 2021 1:00am Start: 04-23-2019 benztropine Re fills(s) 0 Start [...] MG PO Every evening March 06, 2021 1:00am busPIRone hydrochloride 10 mg oral tablet (20 [...] procedure, # 14 cap(s), Refills(s) 0, Pharmacy: [facility]/pharmacy #[id number], quique Landry, 07/15/23 7:46:00 EDT, Height/Length Dosing, 142, kg, 05/28/23 16:07:00 EST, Weight Dosing Start Date: 07/15/23 Status: Ordered Start: 10-09-2021 End: 10-16-2021 take 1 capsule by mouth every twelve hours Keflex 500 mg Cap 500 mg = 1 cap(s), Oral, q12hr, X 7 day(s), # 14 cap(s), Refills(s) 0, Pharmacy: [facility]/pharmacy #[id number], quique Landry, 08/09/21 11:09:00 EDT, Height/Length Dosing, 142, kg, 08/09/21 11:09:00 EDT, Weight Dosing Start Date: 10/09/21 Stop Date: 10/16/21 Status: Ordered cetirizine hydrochloride 10 mg oral tablet (20 sources) Histamine-1 Receptor Antagonist take 1 tablet by mouth once daily cetirizine (ZyrTEC ALLERGY) 10 MG tablet Take 10 mg by mouth Daily Active Daily Mohan (20 sources) take 1 tablet by mouth twice daily Daily Mohan 1 tablet Orally Twice a day Active Daily Mohan - (13 sources) take 1 tablet by mouth once daily Daily Mohan - 1 tablet Orally Once a day Active dicyclomine hydrochloride 20 mg oral tablet (20 sources) Anticholinergic take 1 tablet by mouth four times daily as needed dicyclomine (Bentyl) 20 MG tablet Take 20 mg by mouth 4 (four) times a day as needed Active duloxetine (4 sources) Serotonin and Norepinephrine Reuptake Inhibitor Start: 019 duloxetine Oral, Refills(s) 0 Start Date: 04/23/19 Status: Ordered Elastic Bandages & Supports (Wrist Splint/Cock-Up/Left L) misc (20 sources) Start: 024 Elastic Bandages & Supports (Wrist Splint/Cock-Up/Lef t L) misc Indications: Carpal tunnel syndrome of left wrist Wear left cock-up wrist splint at bedtime 1 each 09/25/2023 Active 1 ml erenumab-aooe 70 mg/ml auto-injector (9 sources) Start: 022 Aimovig SureClick 70 mg/mL subcutaneous solution 70 mg Start Date: 08/09/21 Status: Ordered fluticasone 0.05 mg/inh Nasal [place] (9 sources) Start: 020 fluticasone 0.05 mg/inh Nasal [place] Nasal, Daily, Refill(s) 0 Start Date: 05/03/19 Status: Ordered 1 ml galcanezumab-gnlm 120 mg/ml auto-injector (20 sources) Start: 025 inject 120 mg by subcutaneous injection every month Galcanezumab-Gnlm (Emgality Pen) 120 mg/mL pen injector Active 120 MG SUBCUT every month July 08, 2024 12:00am Start: 09-25-2023 End: 09-24-2024 galcanezumab (Emgality) 120 MG/ML auto-injector Indications: Migraine [...] Ordered Start: 03-06-2021 take 1 tablet by elyssa th once daily Lamotrigine 100 mg tablet Active 100 MG PO Daily March 06, 2021 1:00am Start: 03-06-2021 take 1 tablet by elyssa th once daily Lamotrigine 200 mg tablet Active 200 MG PO Daily March 06, [...] Refills(s) 0 Start Date: 04/23/19 Status: Ordered mecobalamin 1 mg chewable tablet (2 sources) Start: 07-08-2024 take 1 tablet by mouth once daily Mecobalamin (Vitamin B12) 1,000 mcg tablet,chewable Active 1000 MCG PO Daily July 08, 2024 12:00am meloxicam (4 sources) Nonsteroidal Anti-inflammatory Drug Start: 04-23-2019 meloxicam Oral, Daily, Refills(s) 0 Start Date: 04/23/19 Status: Ordered metFORMIN hydrochloride 500 mg oral tablet (20 sources) Biguanide Start: 01-02-2024 take 1 tablet by mouth once daily Metformin 500 mg tablet Active 500 MG PO Daily January 02, 2024 12:00am Multivitamin (Daily Multi-Vitamin) tablet (10 sources) Start: 06-19-2023 take 1 tablet by mouth once daily Multivitamin (Daily Multi-Vitamin) tablet Active 1 TAB PO Daily June 19, 2023 12:00am Start: 06-19-2023 take 1 tablet by elyssa th once daily Multivitamin (Daily Multi-Vitamin) tablet Active 1 TAB PO Daily June 19, 2023 1:00am omeprazole 40 mg delayed release oral capsule (20 sources) Proton Pump Inhibitor Start: 05-23-2024 take 1 capsule by mouth once daily Omeprazole 40 mg capsule,delayed release(DR/EC) Active 40 MG PO Daily July 08, 2024 12:00am Start: 05-28-2023 End: 03-10-2024 take 1 capsule by mouth in the morning omeprazole (PriLOSEC) [address] capsule Take 40 mg by mouth in the morning and 40 mg in the evening. Take before meals. 05/28/2023 03/10/2024 Discontinued (Med list cleanup) 24 hr oxybutynin chloride 5 mg extended release oral tablet (20 sources) Cholinergic Muscarinic Antagonist take 1 tablet by mouth once daily oxybutynin XL (Ditropan-XL) 5 MG 24 hr tablet Take 5 mg by mouth Daily Active oxyCODONE hydrochloride 5 mg oral capsule (4 sources) Opioid Agonist Start: take 1 mg by mouth every six hours oxyCODONE 5 mg Cap mg cap(s), Oral, q6hr, Refills(s) 0 Start Date: 02/28/20 Status: Ordered promethazine hydrochloride 25 mg oral tablet (20 sources) Phenothiazine take 1 tablet by mouth every twelve hours promethazine (Phenergan) 25 MG tablet Take 25 mg by mouth every 12 (twelve) hours Active rimegepant 75 mg disintegrating oral tablet (20 sources) Start: 024 End: Rimegepant (Nurtec Odt) 75 mg tablet,disintegrating Active 75 MG PO Every 48 hours June 16, 2024 1:00am simvastatin 40 mg oral tablet (20 sources) HMG-CoA Reductase Inhibitor Start: take 1 tablet by mouth once daily in the evening Simvastatin 40 mg tablet Active 1 TAB PO Daily June 19, 2023 1:00am FreeTextSi tablet in the evening Orally Once a day; Note: Source Status: Taking; Provider: Jackie Gold ( ) spironolactone 50 mg oral tablet (20 sources) Aldosterone Antagonist Start: take 1 mg by mouth twice daily spironolactone 50 mg Tab mg tab(s), Oral, BID Start Date: 05/28/23 Status: Ordered Start: 03-06-2021 End: 06-16-2024 take 1 tablet by mouth once daily Spironolactone 50 mg tablet Discontinued 50 MG PO Daily March 06, 2021 1:00am June 16, 2024 10:27am sulfamethoxazole 800 mg / trimethoprim 160 mg oral tablet (4 sources) Dihydrofolate Reductase Inhibitor Antibacterial, Sulfonamide Antimicrobial Start: 02-12-2024 End: 02-19-2024 Bactrim D.S. 800 mg-160 mg Tab 1 tab(s), Oral, BID for 7 day(s), 14 tab(s), Refill(s) 0, [facility]/pharmacy #[id number], 173, cm, 02/12/24 9:11:00 EDT, Height/Length [...] 30 days G89.29 Chronic pain Sep, Active valbenazine 80 mg oral capsule (6 sources) Start: 05-26-2024 take 1 capsule by mouth once daily Valbenazine (Ingrezza) 80 mg capsule Active 80 MG PO Daily July 08, 2024 12:00am 24 hr venlafaxine 150 mg extended release oral capsule (20 sources) Serotonin and Norepinephrine Reuptake Inhibitor Start: 05-22-2024 take 1 capsule by mouth once daily venlafaxine XR (Effexor XR) 150 MG 24 hr capsule Take 300 mg by mouth Daily 05/22/2024 Active Start: 06-19-2023 take 150 mg by mouth once colby y Venlafaxine Active 150 MG PO Daily June 19, 2023 10:13am Start: 05-28-2023 take 1 mg by mouth once daily venlafaxine 150 mg Cap-ER mg cap(s), Oral, Daily Start Date: 05/28/23 Status: Ordered Start: 03-06-2021 End: 06-19-2023 take 1 capsule by mouth once daily Venlafaxine 75 mg capsule,extended release 24hr Active 150 MG PO Daily June 19, 2023 10:13am Start: 03-06-2021 End: 06-19-2023 take 225 mg [...] Active vitamin b12 1 mg oral tablet (20 sources) Vitamin B12 take 1 tablet by mouth once daily cyanocobalamin (Vitamin B-12) 1000 MCG tablet Take 1,000 mcg by mouth Daily Active Zavegepant HCl (Zavzpret) 10 MG/ACT solution (2 sources) Start: End: Zavegepant HCl (Zavzpret) 10 MG/ACT solution Indications: Migraine without aura and without status migrainosus, not intractable (CMS/HCC) Administer 10 mg into affected nostril(s) Daily as needed (migraine) Take no more than 1 time in 24 hours. Take no more than six doses per month. 6 each 5 09/20/2024 03/19/2025 Active zonisamide 100 mg oral capsule (17 [...] mg / caffeine 40 mg oral tablet (17 sources) Barbiturate, Central Nervous System Stimulant, Methylxanthine Start: 03-06-2021 End: 08-29-2021 Edctrbirqw-Rckvbhuvcfsjw-Zyz f 50-325-40 mg tablet Discontinued 1 TAB PO As Directed as needed for Migraine Headache March 06, 2021 1:00am August 29, 2021 10:35am amitriptyline hydrochloride 150 mg oral tablet (20 sources) Tricyclic Antidepressant End: 03-10-2024 take 1 tablet by mouth once daily amitriptyline (Elavil) 150 MG tablet Take 150 mg by mouth 1 (one) time each day at the same time 03/10/2024 Discontinued (Med list cleanup) azithromycin 250 mg oral tablet (17 sources) Macrolide Antimicrobial Start: 03-06-2021 End: 08-15-2021 Azithromycin 250 mg tablet Discontinued MG TABLET March 06, 2021 1:00am August 15, 2021 9:58am Start: 03-06-2021 End: 08-15-2021 Azithromycin Discontinued MG TABLET March 06, 2021 1:00am August 15, 2021 9:58am carisoprodol 350 mg oral tablet (12 sources) Muscle Relaxant End: 03-10-2024 take 1 tablet by mouth four times daily as needed carisoprodol (Soma) 350 MG tablet Take 350 mg by mouth 4 (four) times a day as needed 03/10/2024 Discontinued (Med list cleanup) cyclobenzaprine hydrochloride 5 mg oral tablet (20 sources) Muscle Relaxant Start: 08-29-2021 End: 06-16-2024 take 1 tablet by mouth once daily at bedtime Cyclobenzaprine 5 mg tablet Discontinued 5 MG PO Daily at bedtime August 29, 2021 12:00am June 16, 2024 10:23am diclofenac sodium 0.01 mg/mg topical gel (20 sources) Nonsteroidal Anti-inflammatory Drug Start: 09-04-2023 End: 07-08-2024 Diclofenac Sodium (Voltaren Arthritis Pain) 1 % gel Discontinued 2 GM TOPICAL Four times daily 100 December 11, 2023 10:59am July 08, 2024 3:00pm apply to single elbow, wrist or hand; for hand includes palm/fingers/back of hand Start: 03-06-2021 End: 09-04-2023 take 1 tablet by mouth twice daily Diclofenac Sodium 75 mg tablet,delayed release (DR/EC) Discontinued 75 MG PO Twice daily March 06, 2021 1:00am September 04, 2023 9:51am Start: 04-23-2019 diclofenac Ora l, Refills(s) 0 Start Date: 04/23/19 Status: Ordered diclofenac sodiu m 1 % gel Apply 2 g topically in the morning and 2 g at noon and 2 g in the evening and 2 g before bedtime. Active docusate sodium 50 mg / sennosides, residential 8.6 mg oral tablet (20 sources) Start: 07-09-2021 take 8.6-50 mg by mouth once daily at bedtime Senokot S 8.6-50 MG 2 tab(s) Orally qhs for 30 day(s) Jun, Not-Taking/PRN Emgality (18 sources) Emgality Not-Maicol ing/PRN Emgality Not-Maicol ing Emgality Active famotidine 40 mg oral tablet (20 sources) Histamine-2 Receptor Antagonist Start: 03-06-2021 End: 06-19-2023 take 1 tablet by mouth twice daily Famotidine 40 mg tablet Discontinued 40 MG PO Twice daily March 06, 2021 1:00am June 19, 2023 10:04am End: 03-10-2024 take 1 tablet by mouth once daily famotidine (Pepcid) 40 MG tablet Take 40 mg by mouth Daily 03/10/2024 Discontinued (Med list cleanup) fluticasone propionate 0.05 mg/actuat metered dose nasal spray (20 sources) Corticosteroid Start: 03-06-2021 End: 06-19-2023 Fluticasone Propionate 50 mcg/actuation spray,suspension Discontinued 50 MCG INTRANASAL Daily March 06, 2021 1:00am June 19, 2023 10:11am Start: 05-03-2019 fluticasone 0. 05 mg/inh Nasal [place] Nasal, Daily, Refill(s) 0 Start Date: 05/03/19 Status: Ordered take 1 spray(s) nasa l route once daily fluticasone (Flonase) 50 MCG/ACT nasal spray Administer 1 spray into each nostril Daily Active furosemide 40 mg oral tablet (20 sources) Loop Diuretic Start: 03-06-2021 End: 06-04-2023 take 1 tablet by mouth twice daily Furosemide 40 mg tablet Discontinued 40 MG PO Twice daily March 06, 2021 1:00am June 04, 2023 10:57am End: 03-10-2024 take 1 tablet by mouth once daily furosemide (Lasix) 40 MG tablet Take 40 mg by mouth Daily 03/10/2024 Discontinued (Med list cleanup) gabapentin 400 mg oral capsule (20 sources) Anti-epileptic Agent Start: 06-19-2023 End: 07-16-2023 Gabapentin 300 mg capsule Discontinued 400 MG PO Three times daily June 19, 2023 9:47am July 16, 2023 11:04am Start: 06-19-2023 End: 07-16-2023 take 400 mg by mouth three times daily Gabapentin Discontinued 400 MG PO Three times daily June 19, 2023 9:47am July 16, 2023 11:04am Start: 05-28-2023 End: 06-16-2024 take 1 capsule by mouth three times daily Gabapentin 400 mg capsule Discontinued 400 MG PO Three times daily January 15, 2024 3:58pm June 16, 2024 10:54am Start: 08-29-2021 End: 06-19-2023 take 1 capsule by mouth three times daily Gabapentin 300 mg capsule Discontinued 300 MG PO Three times daily [...] list cleanup) methylPREDNISolone 4 mg oral tablet (15 sources) Corticosteroid Start: 06-19-2023 End: 01-02-2024 take [...] each day at the same time Active naratriptan 2.5 mg oral tablet (20 sources) Serotonin-1b and Serotonin-1d Receptor Agonist Start: 06-19-2023 End: 06-16-2024 take 2 tablets by mouth every twenty-four hours as needed Naratriptan 2.5 mg tablet Discontinued 2.5 MG PO Every 4 hours as needed June 19, 2023 1:00am June 16, 2024 10:26am do not exceed 2 doses per 24 hrs Start: 02-05-2023 End: 02-11-2024 take 1 tablet by mouth once naratriptan (Amerge) 2.5 M G tablet Take 2.5 mg by mouth 1 (one) time if needed for migraine 02/05/2023 02/11/2024 Discontinued (Therapy completed) nitrofurantoin, macrocrystals 25 mg / nitrofurantoin, monohydrate 75 mg oral capsule (9 sources) Nitrofuran Antibacterial take 1 capsule by mouth every twenty-four hours Macrobid 100 MG 1 capsule with food Orally Once a day Not-Taking ondansetron 4 mg disintegrating oral tablet (12 sources) Serotonin-3 Receptor Antagonist End: 2023 take 1 tablet by mouth every eight hours as needed ondansetron ODT (Zofran-ODT) 4 MG disintegrating tablet Take 4 mg by mouth every 8 (eight) hours if needed 03/10/2024 Discontinued (Med list cleanup) pantoprazole 40 mg delayed release oral tablet (20 sources) Proton Pump Inhibitor Start: 2020 End: 2024 take 1 tablet by mouth twice daily Pantoprazole 40 mg tablet,delayed release (DR/EC) Discontinued 40 MG PO Twice daily March 06, 2021 1:00am July 08, 2024 3:00pm Start: 04-23-2019 pantoprazole D aily, Refills(s) 0 Start Date: 04/23/19 Status: Ordered PARoxetine hydrochloride 20 mg oral tablet (20 sources) Serotonin Reuptake Inhibitor Start: 06-19-2023 End: 06-16-2024 take 1 tablet by mouth once daily in the morning Paroxetine Hcl 20 mg tablet Discontinued 20 MG PO Daily June 19, 2023 1:00am June 16, 2024 10:27am FreeTextSi tablet in the morning Orally Once a day; Note: Source Status: Not-Takingundefine dPRN; Provider: Jackie Gold ( ) Start: 03-06-2021 End: 08-29-2021 Paroxetine Hcl 20 mg tablet Discontinued 20 MG PO As Directed March 06, 2021 1:00am August 29, 2021 10:35am Start: 04-23-2019 paroxetine Ora l, Refills(s) 0 Start Date: 04/23/19 Status: Ordered End: 03-10-2024 take 1 tablet by mouth in the morning PARoxetine (Paxil) 30 MG tablet Take 30 mg by mouth in the morning. 03/10/2024 Discontinued (Med list cleanup) take 2 tablets by [facility] every twenty-four hours Paxil 30 MG 2 tablets Orally Once a day Not-Taking microencapsulated potassium chloride 20 meq extended release oral tablet (20 sources) Start: 03-06-2021 End: 08-29-2021 Potassium Chloride (Klor-Con M20) 20 mEq tablet,ER particles/crystals Discontinued 20 MEQ PO As Directed March 06, 2021 1:00am August 29, 2021 10:35am risperiDONE 2 mg oral tablet (12 sources) Atypical Antipsychotic End: 03-10-2024 take 1 tablet by mouth once daily risperiDONE (RisperDAL) 2 MG tablet Take 2 mg by mouth Daily 03/10/2024 Discontinued (Med list cleanup) rizatriptan 10 mg disintegrating oral tablet (20 sources) Serotonin-1b and Serotonin-1d Receptor Agonist Start: 08-29-2021 End: 06-19-2023 Rizatriptan 10 mg tablet,disintegrating Discontinued 10 MG PO As Directed as needed for Migraine August 29, 2021 12:00am June 19, 2023 10:11am take 1 tablet by elyssa th every twenty-four hours Maxalt 10 MG 1 tablet Orally Once a day Not-Taking/PRN solifenacin succinate 5 mg oral tablet (9 sources) Cholinergic Muscarinic Antagonist take 1 tablet by mouth every twenty-four hours VESIcare 5 MG 1 tablet Orally Once a day Not-Taking sucralfate 1000 mg oral tablet (17 sources) Aluminum Complex Start: 03-06-20 End: 06-19-19 take 1 tablet by mouth four times daily Sucralfate 1 gram tablet Discontinued 1 GM PO Four times daily [...] sources) Cholinergic Muscarinic Antagonist Start: 03-06-20 End: 05-22-19 take 1 capsule by mouth once daily Tolterodine 4 mg capsule,extended release 24hr Discontinued 4 MG PO Daily March 06, 2021 1:00am June 19, 2023 10:14am Start: 03-06-2021 End: 03-10-2024 Tolterodine 2 mg tablet Disc ontinued 2 MG PO As Directed March 06, 2021 1:00am August 29, 2021 10:31am topiramate 100 mg oral table t (20 sources) Start: 03-06-2021 End: 03-10-2024 Topiramate 100 mg tablet Discontinued 100 MG PO As Directed March [...] Date Documented Da te Episodic/Chronic Abdominal pain (17 sources) Lower abdominal pain; Translations: [Lower abdominal pain, unspecified] 07-18-2021 Episodic Anxiety disorders (1 source) Anxiety disorder, unspecified; Translations: [ANXIETY DISORDER UNSPECIFIED] Onset: 2 Chronic Disorders of lipid metabolism (20 sources) Hyperlipidemia; Translations: [Dyslipidemia] Onset: 2 04-23-2019 Chronic Epilepsy; convulsions (20 sources) Seizure; Translations: [Unspecified convulsions] 04-23-2019 Episodic [...] 04-23-2019 Chronic Other aftercare (1 source) Other intermediate (current) drug therapy; Translations: [OTH EDGER RUNNER CURRENT DRUG THERAPY] Onset: 3 Episodic Other aftercare (10 sources) Polypharmacy ; Translations: [Other longitudinal float operator (current) drug therapy] 02-11-2024 Episodic Other connective tissue disease (20 sources) Fibromyalgia; Translations: [Fibromyalgia] Onset: 4 04-23-2019 Episodic Other connective tissue disease (5 [...] Onset: 3 Chronic Other nervous system disorders (20 sources) Carpal tunnel syndrome of left wrist; Translations: [Carpal tunnel syndrome, left upper limb] Onset: 4 09-24-2023 Chronic Other nervous system disorders (2 sources) Bilateral carpal tunnel syndrome; Translations: [Carpal tunnel syndrome, bilateral upper limbs] 02-11-2024 Chronic Other non-traumatic joint disorders (4 sources) Shoulder joint pain; Translations: [Pain in right shoulder] Episodic Other non-traumatic joint disorders (20 sources) Pain in right shoulder; Translations: [Right [...] Translations: [OTHER PRURITUS] Onset: 05-22-2022 Episodic Other nervous system disorders (20 sources) Paresthesia; Translations: [Paresthesia of skin] Onset: 09-24-2023 09-24-2023 Episodic Other non-traumatic joint disorders (2 sources) Pain in left knee Onset: 06-07-2021 Resolved: 07-09-2021 Episodic Spondylosis; intervertebral disc disorders; other back problems (20 sources) Cervicalgia; Translations: [Dorsalgia, unspecified] Onset: 02-26-2021 Resolved: 10-15-2021 Episodic Unclassified (1 source) COUGH, UNSPECIFIED; Translations: [COUGH, UNSPECIFIED] Onset: 07-14-2022 Results Test Name Value Interpretation Reference Range Facility C Urineon 09-19-2024 Bacteria identified Cx Nom (U) Microbiology PROCEDURE: Urine Culture [R1] SOURCE: U CleanCatch BODY SITE: COLLECTED DATE/TIME: 09/17/2024 12:54 EDT RECEIVED DATE/TIME: 09/17/2024 17:16 EDT START DATE/TIME: 09/17/2024 17:16 EDT FREE TEXT SOURCE: KAYY MIRAMONTES PA-C, PA-C, KAYY Buenrostro FINAL REPORTS Final Report [] Verified Date/Time: 09/19/2024 07:19 EDT 50,000 cfu/ml Klebsiella pneumoniae 50,000 cfu/ml Escherichia coli SUSCEPTIBILITY RESULTS LEGEND: S=Susceptible, N/R=Not Reported, Blank=Data not available, or drug not advisable or tested, I=Intermediate, ESBL=Extended spectrum beta-lactamase, R=Resistant, TFG=Thymidine-depende nt strain, NITIN=Beta-lactamase positive, LUIZ=mcg/m;(mg/L), S*=Predicted susceptible interp, R*=Predicted resistant interp Klepne EC Antibiotic LUIZ Dilutn LUIZ Interp LUIZ Dilutn LUIZ Interp Ampicillin <=8 R* >16 R Ampicillin/ <=8/4 S >16/8 R Sulbactam Aztreonam <=4 S <=4 S Cefazolin <=2 S 4 S Cefepime <=2 S <=2 S Ceftazidime <=1 S <=1 S Ceftazidime/ <=8 S <=8 S Avibactam Ceftriaxone <=1 S <=1 S Cefuroxime <=4 S <=4 S Ciprofloxacin <=0.25 S >2 R Ertapenem <=0.5 S <=0.5 S Gentamicin <=2 S <=2 S Levofloxacin <=0.5 S >4 R Meropenem <=1 S <=1 S Nitrofurantoin <=32 S <=32 S Piperacillin/ <=8 S <=8 S Tazobactam Tetracycline <=4 S <=4 S Tobramycin <=2 S <=2 S Trimethoprim/ <=2/38 S <=2/38 S Sulfa Performing Locations R1: This test was performed at: [facility], [address] [place] [address], [facility] , , [facility] Comment on above: Performed By: #### [id number] #### [facility] [address] [place] [address] Ambulatory Visit Summaryon 0 09-17-2024 Ambulatory Visit Summary Ambulatory Visit Summary SHAILESH BLAKE :1970 Visit Date:09/17/2024 Ambulatory Visit Instructions Your Care Team Attending Physician - KAYY MIRAMONTES PA-C Primary Care Physician - ALYSSA ARREOLA CNP This Is Your Medications List albuterol (Albuterol (Eqv-ProAir HFA)) benztropine (benztropine 0.5 mg oral tablet) brexpiprazole (Rexulti 4 mg oral tablet) busPIRone (busPIRone 10 mg Tab) erenumab (Aimovig SureClick 70 mg/mL subcutaneous solution) fluticasone nasal (fluticasone 0.05 mg/inh Nasal [place]) gabapentin (gabapentin 400 mg Cap) lamotrigine (lamotrigine [...] Cholecystectomy, D&C, History of tubal ligation. Medications What How Much When Instructions Unchanged [...] fluticasone nasal (fluticasone 0.05 mg/ inh Nasal [place]) Nasal Inhalation Every day Unchanged gabapentin (gabapentin [...] (overactive bladder) Seizure UTI (urinary tract infection) Patient Survey You may receive a survey via text or e-mail asking about your office visit. Please share your experience with us by completing your survey. We appreciate your feedback and thank you for choosing us for your care. Normal [facility] - Drug toxicology on 08-04-2024 Amphetamines Ql (U) Negative [facility] Benzodiazepines Ql (U) Negative [facility] Cocaine Ql (U) Negative [facility] Opiates Ql (U) Negative [facility] Phencyclidine Ql (U) Negative [facility] No Panel Informationon 08-04 Urine Barbiturates Screen Negative [facility] Urine Marijuana (THC) Screen Negative [facility] MR Cervical spine WO contras ton 05-26-2024 [facility] [address] [place] [address] Magnetic Resonance Report Signed Patient: SHAILESH BLAKE MR#: [id number] : 1970 Acct:[id number] Age/Sex: 53 / F ADM Date: 05/26/24 Loc: MRI Attending Dr: Cheyanne Schilling NP Ordering Physician: Cheyanne Schilling NP Date of Service: 05/26/24 Procedure(s): MR cervical spine wo con Accession Number(s): [id number] cc: ALYSSA ARREOLA ; Cheyanne Schilling NP [place] [id number] Patient Name: SHAILESH BLAKE MRN: [facility]:[id number] date: 1970 Sex: F Assigned Patient Location: MRI Current Patient Location: MRI Accession/Order Number: [id number] Exam Date: 05/26/2024 08:42 Report Date: 05/26/2024 11:36 At the request of: CHEYANNE SCHILLING Procedure: MR cervical spine wo con EXAM: [...] any cervical level. Electronically authenticated by: LISBETH HO Date: 05/26/2024 11:36 Dictated By: Lisbeth Ho M.D. Signed By: 05/26/24 1139 DD/ 1136 TD/TT: Lumber Yard Worker: [facility] Radiology, Radiologist, MD - 05/26/2024 The [place] [id number] Magnetic Resonance Report Signed Patient: SHAILESH BLAKE MR#: [id number] : 1970 Acct:[id number] Age/Sex: 53 / F ADM Date: 05/26/24 Loc: MRI Attending Dr: Cheyanne Schilling SENIOR STOCK PLAN ADMINISTRATOR Ordering Physician: Cheyanne Schilling NP Date of Service: 05/26/24 Procedure(s): MR cervical spine wo con Accession Number(s): [id number] cc: ALYSSA ARREOLA ; Cheyanne Schilling NP [place] [id number] Patient Name: SHAILESH BLAKE MRN: [facility]:[id number] date: 1970 Sex: F Assigned Patient Location: MRI Current Patient Location: MRI Accession/Order Number: [id number] Exam Date: 05/26/2024 08:42 Report Date: 05/26/2024 11:36 At the request of: CHEYANNE SCHILLING Procedure: MR cervical spine wo con EXAM: [...] any cervical level. Electronically authenticated by: LISBETH HO Date: 05/26/2024 11:36 Dictated By: Lisbeth Ho M.D. Signed By: 05/26/24 1139 DD/ 1136 TD/TT: Lumber Yard Worker: [facility] [employer] Radiology Study observation (narrative) [facility] [employer] MR Cervical spine WO contras tOrdered By: Radiologist Radiology on 05-26-2024 [facility]: MR lumbar spine wo conon MR lumbar spine wo con [facility] [place] [address] [place] [address] MRI Report Signed Patient: Shailesh Blake MR#: [id number] : 1970 Acct:[id number] Age/Sex: 53 / F ADM Date: 02/25/24 Loc: MR Room: Type: [facility] Attending Dr: Asif Cox MD Copies to: Asif Cox MD Ordering Provider: Asif Cox MD Date of Service: 02/25/24 MR/MR lumbar [...] Benito Blake M.D.02/25/2024 3:32 PM Dictation Location: [place] [address] Transcribed By: [facility] 02/25/24 1532 Dictated By: Benito Blake DO 02/25/24 1527 Signed By: 02/25/24 1532 Normal [facility] EMG 2 Extremitieson 02-19-20 Normal [facility] NVC 9-10 Nerveson 02-19-2024 Normal [facility] C Urineon 02-14-2024 Bacteria identified Cx Nom (U) Microbiology PROCEDURE: Urine Culture [R1] SOURCE: U CleanCatch BODY SITE: COLLECTED DATE/TIME: 02/12/2024 09:25 EDT RECEIVED DATE/TIME: 02/12/2024 17:43 EDT START DATE/TIME: 02/12/2024 17:43 EDT FREE TEXT SOURCE: KAYY MIRAMONTES PA-C, [...] Locations R1: This test was performed at: [facility], [address] [place] [address], [address] , , [facility] Comment on above: Performed By: #### 2 [id number] #### [facility] [address] [place] [address] Ambulatory Visit Summaryon 1 0-2024 Ambulatory Visit Summary Ambulatory Visit Summary SHAILESH BLAKE :1970 Visit Date:02/12/2024 Ambulatory Visit Instructions Your Diagnosis OAB (overactive bladder) Your Care Team Attending Physician - THERESA MOCTEZUMA, KAYY Buenrostro Primary Care Physician - ALYSSA ARREOLA CNP This Is Your Medications List albuterol (Albuterol (Eqv-ProAir HFA)) benztropine (benztropine 0.5 mg oral tablet) brexpiprazole (Rexulti 4 mg oral tablet) busPIRone (busPIRone 10 mg Tab) erenumab (Aimovig SureClick 70 mg/mL subcutaneous solution) fluticasone nasal (fluticasone 0.05 mg/inh Nasal [place]) gabapentin (gabapentin 400 mg Cap) lamotrigine (lamotrigine [...] fluticasone nasal (fluticasone 0.05 mg/ inh Nasal [place]) Nasal Inhalation Every day Unchanged gabapentin (gabapentin [...] for choosing us for your care. Normal [facility] Urology Office/Clinic Noteon 02-12-2024 Urology Office/Clinic [...] E&M of Est. Patient Moderate 30-39 Min 29812 2. OAB (overactive bladder) (N32.81: Overactive bladder) [...] 146.2, kg, 02/12/24 9:11:00 EDT, Weight Dosing 44373 Measure Post Void residual urine and/or bladder capacity by US- non-imaging E&M of Est. Patient Moderate 30-39 Min 06264 Urine Culture Urnls Dip Stick Auto w/o Microscopy POC 57026 3. Mixed incontinence (N39.46: Mixed incontinence) Marked improvement in OAB/UUI after Botox 07/15/23. See #1 and #2. Knows Botox won't help w SYLVIE. Encouraged home PFPT. Ordered: sulfamethoxazole-trim ethoprim, 1 tab(s), Oral, BID for 7 day(s), 14 tab(s), Refill(s) 0, [id number], 173, cm, 02/12/24 9:11:00 EDT, Height/Length Dosing, 146.2, kg, 02/12/24 9:11:00 EDT, Weight Dosing E&M of Est. Patient Moderate 30-39 Min 38925 Follow-up With When Contact Information THERESA MOCTEZUMA, KAYY Buenrostro, URL [address] [place] [address] Business (1) Additional Instructions: pending [...] Tab, Oral, BID fluticasone 0.05 mg/inh Nasal [place], Nasal, Daily gabapentin 400 mg Cap, Oral, TID lamotrigine 100 mg Tab, Oral, BID lamotrigine 200 mg Tab, Oral, BID meclizine 25 mg (more content not included)... Normal [facility] Comment on above: Result Comment: Elec tronically Signed By: KAYY MIRAMONTES PA-C\.br\Date and Time Signed: 02/12/24 09:45 EDT Provider Letteron 12-22-2023 Provider Letter Provider Letter December 22, 2023 SHAILESH BLAKE [address] [place] [phone] : 1970 Dear Shailesh , We have [...] [facility] [address], [address] [place] [address] Normal [facility] XR knee BI 4Von 12-11-2023 XR knee BI 4V [facility] [place] [address] [place] [address] XRay Report Signed Patient: Shailesh Blake MR#: [id number] : 1970 Acct:[id number] Age/Sex: 52 / F ADM Date: 12/11/23 Loc: XD Room: Type: [facility] Attending Dr: Destini Kilgore SENIOR STOCK PLAN ADMINISTRATOR Copies to: Destini Kilgore NP Ordering [...] Benito Blake M.D.12/11/2023 3:58 PM Dictation Location: [place] [address] Transcribed By: [facility] 12/11/23 1558 Dictated By: Benito Blake DO 12/11/23 1557 Signed By: 12/11/23 1558 Normal [facility] Provider Letteron 11-19-2023 Provider Letter Provider Letter November 19, 2023 SHAILESH BLAKE [address] [place] [phone] : 1970 Dear Shailesh, We have been [...] [facility] [address], [place] [address] [facility] Ambulatory Visit Summaryon 0 07-29-2023 Ambulatory Visit [...] solution) fluticasone nasal (fluticasone 0.05 mg/inh Nasal [place]) gabapentin (gabapentin 400 mg Cap) lamotrigine (lamotrigine [...] asymptomatic. Where: [address] [place] [address] Medications What How Much When Instructions Unchanged [...] fluticasone nasal (fluticasone 0.05 mg/ inh Nasal [place]) Nasal Inhalation Every day Contact prescribing physician [...] empty b (more content not included)... Normal [facility] Patient Educationon 07-29-19 24 Patient Education [...] health care provider. General instructions ? Take scgb-fsm-fsyffqi and prescription medicines only as told by [...] monitor yo (more content not included)... Normal [facility] Urology Office/Clinic Noteon 07-29-2023 Urology Office/Clinic [...] see #1 Follow-up With When Contact Information THERESA MOCTEZUMA, KAYY Buenrostro, URL In 6 months [address] [facility] [place] [address] Additional Instructions: Pt to call and cancel [...] Tab, Oral, BID fluticasone 0.05 mg/inh Nasal [place], Nasal, Daily gabapentin 400 mg Cap, Oral, [...] Comments zoster vaccine, inactivated 10/07/2021 Recorded SARSCoV2 mRNA(marco a dempsey) vac 10/07/2021 Recorded SARS-CoV-2 (COVID-19) mRNA BNT-162b2 vax 2020 Recorded SARS-CoV-2 (COVID-19) mRNA BNT-162b2 vax 12/02/2020 Recorded influenza virus vaccine, inactivated - Not Given Postpone (more content not included)... [facility] Comment on above: Result Comment: Elec tronically Signed By: KAYY MIRAMONTES PA-C\.br\Date and Time Signed: 07/29/23 15:33 EDT\.br\Electronically Co-Signed By: Caren Shaw MA\.br\Date and Time Co-Signed: 07/29/23 15:22 EDT Consent for Procedure/Surger yon 07-15-2023 Consent for Procedure/Surgery [id number]# 1.00TIFF [facility] Consent for Treatmenton 06-26 Consent for Treatment [id number]#1 .00TIFF [facility] IntraOperative Documentson 0 07-15-2023 IntraOperative Documents [id number]# 1.00TIFF [facility] Main OR Intraoperative Recor don 07-15-2023 Main OR Intraoperative Record IntraOp Document Type FTURO Summary Primary Physician: Hermilo GASTON MD Finalized Date/Time: 07/15/23 08:54:30 Pt. Name: SHAILESH BLAKE Roma Cerrato/Sex: 1970 Female Med Rec #: [id number] Physician: Hermilo GASTON MD Financial #: [id number] Pt. Type: O Room/Bed: / Admit/Disch: 07/15/23 07:29:47 - Institution: Case Times FTURO Entry 1 Patient Times In Room 07/15/23 08:40:00 Out Room 07/15/23 08:56:00 Procedure Times Start 07/15/23 08:42:00 Stop 07/15/23 08:51:00 Anesthesia Times Last Modified By: Sushma RN, Mary Beth LUTHER 07/15/23 08:53:50 Case Attendance FTURO Entry 1 Entry 2 Entry 3 Case Attendee ALEK JARAMILLO, Hermilo Ordaz RN, TRAVONOR, Dakota HERNANDEZ, Lissa Clinton Role Performed Surgeon - Primary Scrub - Primary Scrub - Primary Time In 07/15/23 08:40:00 07/15/23 08:40:00 07/15/23 08:40:00 Time Out 07/15/23 08:56:00 07/15/23 08:56:00 07/15/23 08:56:00 Procedure CYSTOSCOPY LOCAL WITH CYSTOSCOPY LOCAL WITH CYSTOSCOPY LOCAL WITH URETHRAL DILATION(.) URETHRAL DILATION(.) URETHRAL DILATION(.) Comments Last Modified By: Sushma MASON, CNOR, Sushma MASON, CNOR, Sushma MASON, CNOR, Mary Beth 07/15/23 Mary Beth 07/15/23 Mary Beth 07/15/23 08:53:51 08:53:51 08:53:51 Surgical Procedures FTURO Entry 1 Procedure Description Procedure CYSTOSCOPY LOCAL WITH Modifiers . URETHRAL DILATION Surgeon Description CYSTO 100 UNITS BOTOX Primary Procedure Yes Primary Surgeon Hermilo GASTON MD 07/15/23 08:42:00 Stop 07/15/23 08:51:00 Anesthesia Type Local Surgical Service Urology Wound Class 2 - Clean-Contaminated Last Modified By: Sushma MASON, TRAVONOR, Mary Beth 07/15/23 08:53:52 General Comments: botox 100 units lot [id number] General Case Data FTURO Pre-Care Text: Classifies surgical wound, implements aseptic technique, initiates traffic control Entry 1 Case Information OR URO 1 FT Case Level None Wound Class 2 - Clean-Contaminated Specialty Urology Preop Diagnosis MIXED INCONTINENCE, Postop Same As Preop No OVERACTIVE BLADDER Postop Diagnosis MIXED INCONTINENCE, Outcomes Met? Yes OVERACTIVE BLADDER, Last Modified By: Sushma MASON, TRAVONOR, Mary Beth 07/15/23 08:50:26 Post-Care Text: The [...] Out Hermilo GASTON MD, Verified (If Participants ASHKAN Ordaz RN, Applicable) Dakota Clinton CST, Kimberly A Time [...] RN, Ruthann 07/15/23 08:54 Normal [facility] Main OR Preoperative Recordo n 07-15-2023 Main OR Preoperative Record Holding Area Document Type FTURO Summary Primary Physician: Hermilo GASTON MD Finalized Date/Time: 07/15/23 07:47:45 Pt. Name: SHAILESH BLAKE/Sex: 1970 Female Med Rec #: [id number] Physician: Hermilo GASTON MD Financial #: [id number] Pt. Type: O Room/Bed: / Admit/Disch: 07/15/23 [...] Quezada RN 07/15/23 07:47 Normal [facility] Operative Reporton Operative Report Patient: SHAILESH [...] home with antibiotic coverage, Follow up arranged. [facility] Comment on above: Result Comment: Elec tronically Signed By: ALEK JARAMILLO, Hermilo Azul.mariana\Date and Time Signed: 07/15/23 08:53 EDT Outpatient Surgery Discharge Instructionon 07-15-2023 Outpatient Surgery Discharge Instruction [id number]# 1.00TIFF [facility] Pre-Certification Formon Pre-Certification Form [id number]#1 .00TIFF [facility] C Urineon 07-10-2023 Bacteria identified Cx Nom (U) Microbiology PROCEDURE: Urine Culture [R1] SOURCE: U CleanCatch BODY SITE: COLLECTED DATE/TIME: 07/08/2023 14:30 EDT RECEIVED DATE/TIME: 07/08/2023 18:08 EDT START DATE/TIME: 07/08/2023 18:08 EDT FREE TEXT SOURCE: KAYY MIRAMONTES PA-C, PA-C, JENNIFER E FINAL REPORTS Final Report [] Verified Date/Time: 07/10/2023 08:44 EDT 1,000 cfu/ml Mixed skin contaminants Performing Locations R1: This test was performed at: [facility], [address] [place] [address], [address]- , [place], [facility] Comment on above: Performed By: #### 2 [id number] ####[facility] [address] [place] [address] Pre-Certification Formon Pre-Certification Form [id number]#1 .00TIFF [facility] Pre-Certification Formon Pre-Certification Form [id number]#1 .00TIFF [facility] Pre-Certification Form [id number]#1 .00TIFF [facility] Ambulatory Visit Summaryon 0 07-08-2023 Ambulatory Visit Summary SHAILESH BLAKE :1970 Visit Date:07/08/2023 Ambulatory Visit Instructions Your Diagnosis UTI (urinary tract infection) Your Care Team Attending Physician - ALEK JARAMILLO, Hermilo Yu Primary Care Physician - MAXWELL BYRD, ALYSSA Bell This Is Your Medications List albuterol (Albuterol (Eqv-ProAir HFA)) benztropine (benztropine 0.5 mg oral tablet) brexpiprazole (Rexulti 4 mg oral tablet) busPIRone (busPIRone 10 mg Tab) erenumab (Aimovig SureClick 70 mg/mL subcutaneous solution) fluticasone nasal (fluticasone 0.05 mg/inh Nasal [place]) gabapentin (gabapentin 400 mg Cap) lamotrigine (lamotrigine [...] Appointments Friday 10:30 AM EDT With: Where: [facility] Friday 8:30 AM EDT With: Where: [facility] Friday 2:40 PM EDT With: THERESA MOCTEZUMA, KAYY Buenrostro Where: [facility] Pre-Certification Formon Pre-Certification Form [id number]#1 .00TIFF [facility] Pre-Certification Formon Pre-Certification Form [id number]# 1.00TIFF [facility] Pre-Certification Form [id number]#1 .00TIFF [facility] Pre-Certification Formon Pre-Certification Form [id number]#1 .00TIFF [facility] Pre-Certification Formon Pre-Certification Form [id number]#1 .00TIFF [facility] Urology Office/Clinic Noteon 05-30-2023 Urology Office/Clinic Note [...] -Begin Tolterodine ER 4mg. Rx sent to [facility]. Monitor for SEs. -Will discuss case with [...] E&M of Est. Patient Moderate 30-39 Min 07969 2. OAB (overactive bladder) (N32.81: Overactive bladder) see #1 Orders: tolterodine, 4 mg = 1 cap(s), Oral, Daily, X 30 day(s), # 30 cap(s), Refills(s) 11, Pharmacy: [id number], 173, cm, 05/28/23 16:07:00 EST, Height/Length Dosing, 142, kg, 05/28/23 16:07:00 EST, Weight Dosing 55569 Measure Post Void residual urine and/or bladder capacity by US- non-imaging Urnls Dip Stick Auto w/o Microscopy POC 92677 Follow-up With When Contact Information THERESA MOCTEZUMA, KAYY Buenrostro, URL [address] [facility] [place] [phone] Additional Instructions: sched cysto or Botox Patient Education Botulinum Toxin Bladder Injection Urinary Incontinence I, Lani Hendrickson, personally scribed for Kayy Miramontes PA-C on [...] Tab, Oral, BID fluticasone 0.05 mg/inh Nasal [place], Nasal, Daily gabapentin 400 mg Cap, Oral, [...] (more content not included)... Normal [facility] Comment on above: Result Comment: Elec [...] solution) fluticasone nasal (fluticasone 0.05 mg/inh Nasal [place]) gabapentin (gabapentin 400 mg Cap) lamotrigine (lamotrigine [...] Schedule the Following Appointments Follow Up with THERESA MOCTEZUMA, ALMA NAVARRETE When: Where: [address] [place] [address] [phone] Medications What How Much When Instructions Unchanged [...] fluticasone nasal (fluticasone 0.05 mg/ inh Nasal [place]) Nasal Inhalation Every day Unchanged gabapentin (gabapentin [...] including vitamins, herbs, eye drops, creams, and npoy-ubm-wsbsdyk medicines. ? Any problems you or family [...] (more content not included)... Normal [facility] Patient Educationon 05-28-19 Patient Education Urology Botulinum Toxin Bladder Injection [...] including vitamins, herbs, eye drops, creams, and lghu-kbd-xvzkred medicines. ? Any problems you or family [...] tells you to take them. ? Taking ockb-dag-lqkqpuw medicines, vitamins, herbs, and supplements. General instructions [...] these instructions at home: Medicines ? Take wbeb-vxj-ejqkhqe and prescription medicines only as told by [...] (more content not included)... Normal [facility] XR hip LT min 2V(w/wo pelvis )*on 04-09-2023 XR hip LT min 2V(w/wo pelvis)* [facility] [employer] Other XR hip LT min 2V(w/wo pelvis)* [facility] [place] [employer] Other XR hip LT min 2V(w/wo pelvis)* [address] [facility] [employer] Other XR hip LT min 2V(w/wo pelvis)* [place] [address] [employer] Other XR hip LT min 2V(w/wo pelvis)* XRay Report [employer] Other XR hip LT min 2V(w/wo pelvis)* Signed [employer] Other XR hip LT min 2V(w/wo pelvis)* Patient: Shailesh Blake MR#: [id number] [employer] Other XR hip LT min 2V(w/wo pelvis)* : 1970 Acct:[id number] [employer] Other XR hip LT min 2V(w/wo pelvis)* Age/Sex: 52 / F ADM Date: 04/09/23 [employer] Other XR hip LT min 2V(w/wo pelvis)* Loc: XD Room: Type: [facility] [employer] Other XR hip LT min 2V(w/wo pelvis)* Attending Dr: Destini Kilgore NP [employer] Other XR hip LT min 2V(w/wo pelvis)* Copies to: Destini Kilgore NP [employer] Other XR hip LT min 2V(w/wo pelvis)* Ordering Provider: Destini Kilgore NP [employer] Other XR hip LT min 2V(w/wo pelvis)* Date of Service: 04/09/23 [employer] Other XR hip LT min 2V(w/wo pelvis)* XR/XR hip LT min 2V(w/wo pelvis)*: Left hip pain [employer] Other XR hip LT min 2V(w/wo pelvis)* Left hip 2 views. [employer] Other XR hip LT min 2V(w/wo pelvis)* Reason for exam: Left hip pain radiates into the joint and down into the knee for 3 days. [employer] Other XR hip LT min 2V(w/wo pelvis)* COMPARISON: None. [employer] Other XR hip LT min 2V(w/wo pelvis)* FINDINGS: Mild degenerative changes of the left hip without acute bony process. [employer] Other XR hip LT min 2V(w/wo pelvis)* XR/XR hip LT min 2V(w/wo pelvis)* [employer] Other XR hip LT min 2V(w/wo pelvis)* IMPRESSION: Mild degenerative changes of the left hip without acute bony process. [employer] Other XR hip LT min 2V(w/wo pelvis)* Impression dictated by: Memo Blanchard Jr., D.OPromise04/09/2023 3:57 PM [employer] Other XR hip LT min 2V(w/wo pelvis)* Dictation Location: [place] [address] [employer] Other XR hip LT min 2V(w/wo pelvis)* Transcribed By: [facility] 04/09/23 [facility] [employer] Other XR hip LT min 2V(w/wo pelvis)* Dictated By: Memo Blanchard Jr, DO 04/09/23 [facility] [employer] Other XR hip LT min 2V(w/wo pelvis)* Signed By: [employer] Other XR hip LT min 2V(w/wo pelvis)* 04/09/23 [facility] [employer] Other US PELVIS AND TRANSVAGon US PELVIS [...] by: JACINTA GUTIERREZ Date: 2022-08-27 07:34 Normal [facility] XR DEXA BONE DENSITYon 08-26 XR [...] by: JACINTA GUTIERREZ Date: 2022-08-26 16:16 Normal [facility] PAP ACOG PANEL 2: 30 to 65on 08-10-2022 . . Normal [facility] Comment on above: Result Comment: Perf ormed at: WB Performed By: #### [id number] #### [facility] [address] [address] [address] Beth Alanis Age Gdln ACOG Testing 30-65 Normal [facility] Comment on above: Performed By: #### 4 [id number] #### [facility] [address] [address] [address] Beth Alanis DIAGNOSIS: Comment Normal [facility] Comment on above: Result Comment: NEGA TIVE FOR INTRAEPITHELIAL LESION OR MALIGNANCY. Performed at: WB Performed By: #### 4 [id number] #### [facility] [address] [address] [address] Beth Alanis HPV Aptima Negative Normal Negative [facility] Comment on above: Result Comment: This nucleic acid amplification test detects fourteen high-risk HPV types (16,18,31,33,35,39,45,51,52,56,58,59,66,68) without differentiation. Performed at: =G Performed By: #### 4 [id number] #### [facility] [address] [address] [address] Beth Alanis HPV Genotype Reflex Comment Normal [facility] Comment on above: Result Comment: Crit eria not met, HPV Genotype not performed. Performed at: WB Performed By: #### 4 [id number] #### [facility] [address] [address] [address] Beth Alanis Methodology: Comment Normal [facility] Comment on above: Result Comment: This liquid based ThinPrep(R) pap test was screened with the use of an image guided system. Performed at: WB Performed By: #### 4 [id number] #### [facility] [address] [address] [address] Beth Alanis Note: Comment Normal [facility] Comment on above: Result Comment: The Pap smear is a screening test designed to aid in the detection of premalignant and malignant conditions of the uterine cervix. It is not a diagnostic procedure and should not be used as the sole means of detecting cervical cancer. Both false-positive and false-negative reports do occur. . Performed at: WB Performed By: #### [id number] #### [facility] [address] [address] [address] Beth Alanis Performed by: Comment Normal [facility] Comment on above: Result Comment: Evelyn Ayala, Rock Duster (ASCP) Performed at: WB Performed By: #### 4 [id number] #### [facility] [address] [address] [address] Beth Alanis Specimen adequacy: Comment Normal [facility] Comment on above: Result Comment: Sati sfactory for evaluation. Endocervical and/or squamous metaplastic cells (endocervical component) are present. Performed at: WB Performed By: #### 4 [id number] #### [facility] [address] [address] [address] Beth Alanis Covid-19 PCR ([facility])on 06-26 SARS-CoV-2 (COVID-19) RNA ANITA+probe Ql (Unsp spec) Not detected Normal NOT DETECTED [facility] Comment on above: Result Comment: This test is not yet approved or cleared by the [place] FDA. When there are no FDA-approved or cleared tests available, and other criteria are met, FDA can make tests available under an emergency access mechanism called an Emergency Use Authorization (EUA). The EUA for this test is supported by the Financial Service Representative of Health and Human Service's (HHS's) declaration [...] consistent with SARS-CoV-2. Performed By: #### B SENIOR STOCK PLAN ADMINISTRATOR, BMP, HSTROPN #### [facility] [address] [address] [address] Beth Alanis INFLUENZA A AND B AGon 07-14 INFLUANEGH SEE BELOW Normal [facility] Comment on above: Result Comment: Nega tive for Flu A protein angiten. Infection due to Flu A cannot be ruled out. Flu A angiten in the sample may be below the detection limit of the test. Performed By: #### I NFLUAB #### [facility] [address] [place] [address] Dr. Beth Alanis INFLUBNEGH SEE BELOW Normal [facility] Comment on above: Result Comment: Nega tive for Flu B protein antigen. Infection due to Flu B cannot be ruled out. Flu B antigen in the sample may be below the detection limit of the test. Performed By: #### I NFLUAB #### [facility] [address] [place] [address] Dr. Beth Alanis INFLUENZA A AG Negative Normal NEGATIVE SEE COMMENT [facility] Comment on above: Performed By: #### I NFLUAB #### [facility] [address] [place] [address] Dr. Beth Alanis INFLUENZA B AG Negative Normal NEGATIVE SEE COMMENT [facility] Comment on above: Performed By: #### I NFLUAB #### [facility] [address] [place] [address] Dr. Beth Alanis SYMPTOMATIC COVID-19 ANTIGEN on 07-14-2022 EUA Statement SEE BELOW Normal [facility] Comment on above: Result Comment: This [...] is revoked sooner. Performed By: #### B SENIOR STOCK PLAN ADMINISTRATOR, BMP, HSTROPN #### [facility] [address] [place] [address] Dr. Beth Alanis SARS-CoV-2 (COVID-19) RNA ANITA+probe Ql (Unsp spec) Negative Normal NEGATIVE [facility] Comment on above: Performed By: #### B SENIOR STOCK PLAN ADMINISTRATOR, BMP, HSTROPN #### [facility] [address] [address] [address] Beth Alanis XR CHEST 1 Von 07-14-2022 XR CHEST 1 V EXAM: Chest x-ray HISTORY: . COUGH . COMPARISON: 10/23/2021 TECHNIQUE: Single view of the chest. FINDINGS: Heart and vascularity are unremarkable. Lungs are free of focal infiltrates. Grossly no bony abnormality is appreciated. Impression: No acute heart or lung disease identified. Electronically authenticated by: MELLISSA PRIEST Date: 2022-07-14 11:13 Normal [facility] VAGINITIS/VAGINOSIS DNA PROB Pablo 05-22-2022 Rosie species Negative Normal Negative [facility] Comment on above: Performed By: #### V AGINT #### [facility] [address] [place] [address] Dr. Beth Alanis Gardnerella vaginalis Negative Normal Negative [facility] Comment on above: Performed By: #### V AGINT #### [facility] [address] [place] [address] Dr. Beth Alanis Trichomonas vaginalis Negative Normal Negative [facility] Comment on above: Performed By: #### V AGINT #### [facility] [address] [place] [address] Dr. Beth Alanis LIPID PROFILEon 03-18-2022 CHOL-HDL RATIO NORM SEE BELOW Normal [facility] Comment on above: Result Comment: 3.3 - 4.4 LOW RISK 4.4 - 7.1 AVERAGE RISK 7.1 - 11.0 MODERATE RISK >11.0 HIGH RISK Performed By: #### 4 [id number] #### [facility] [address] [place] [address] Dr. Beth Alanis Cholesterol [Mass/Vol] 183 mg/dL Normal <=200 [facility] Comment on above: Performed By: #### 4 [id number] #### [facility] [address] [place] [address] Dr. Beth Alanis Cholesterol in HDL [Mass/Vol] 56 mg/dL Normal 40-60 [facility] Comment on above: Performed By: #### 4 [id number] #### [facility] [address] [address] [address] Beth Alanis Cholesterol in LDL [Mass/Vol] 106.8 mg/dL Normal [facility] Comment on above: Performed By: #### 4 [id number] #### [facility] [address] [address] [address] Beth Alanis Cholesterol.total/C holesterol in HDL [Mass ratio] 3.3 {ratio} Normal [facility] Comment on above: Performed By: #### 4 [id number] #### [facility] [address] [address] [address] Beth Alanis HDL NORMAL > or = 60 mg/dl - LO W CARDIOVASCULAR RISK <40 mg/dl - HIGH CARDIOVASCULAR RISK Normal [facility] Comment on above: Performed By: #### 4 [id number] #### [facility] [address] [place] [address] Dr. Beth Alanis LDL CALC NORMAL SEE BELOW Normal [facility] Comment on above: Result Comment: <100 mg/dl OPTIMAL 100 - 129 mg/dl NEAR OR ABOVE OPTIMAL 130 - 159 mg/dl BORDERLINE HIGH 160 - 189 mg/dl HIGH >190 mg/dl VERY HIGH Performed By: #### 4 [id number] #### [facility] [address] [address] [address] Beth Alanis Triglyceride [Mass/Vol] 101 mg/dL Normal <=150 [facility] Comment on above: Performed By: #### 4 [id number] #### [facility] [address] [address] [address] Beth Alanis VLDL CALC 20.2 mg/dL Normal [facility] Comment on above: Performed By: #### 4 [id number] #### [facility] [address] [place] [address] Dr. Beth Alanis PROF 14(COMP METB)on 022 Albumin [Mass/Vol] 3.8 g/dL Normal 3.4-5.0 [facility] Comment on above: Performed By: #### 4 [id number] #### [facility] [address] [address] [address] Beth Alanis Albumin/Globulin [Mass ratio] 0.8 {ratio} Normal [facility] Comment on above: Performed By: #### 4 [id number] #### [facility] [address] [address] [address] Beth Alanis ALP [Catalytic activity/Vol] 108 U/L Normal 46-116 [facility] Comment on above: Performed By: #### 4 [id number] #### [facility] [address] [address] [address] Beth Alanis ALT [Catalytic activity/Vol] 28 U/L Normal 14-59 [facility] Comment on above: Performed By: #### 4 [id number] #### [facility] [address] [address] [address] Beth Alanis Anion gap [Moles/Vol] 10.3 mmol/L Normal [facility] Comment on above: Performed By: #### 4 [id number] #### [facility] [address] [address] [address] Beth Alanis AST [Catalytic activity/Vol] 18 U/L Normal 15-37 [facility] Comment on above: Performed By: #### 4 [id number] #### [facility] [address] [address] [address] Beth Alanis Bilirubin [Mass/Vol] 0.7 mg/dL Normal 0.2-1.0 [facility] Comment on above: Performed By: #### 4 [id number] #### [facility] [address] [address] [address] Beth Alanis Calcium [Mass/Vol] 9.5 mg/dL Normal 8.5-10.1 [facility] Comment on above: Performed By: #### 4 [id number] #### [facility] [address] [address] [address] Beth Alanis Chloride [Moles/Vol] 102 mmol/L Normal 98-107 [facility] Comment on above: Performed By: #### 4 [id number] #### [facility] [address] [address] [address] Beth Alanis CO2 [Moles/Vol] 27.6 mmol/L Normal 21.0-32.0 [facility] Comment on above: Performed By: #### 4 [id number] #### [facility] [address] [address] [address] Beth Alanis Creatinine [Mass/Vol] 0.93 mg/dL Normal 0.55-1.02 [facility] Comment on above: Performed By: #### 4 [id number] #### [facility] [address] [address] [address] Beth Alanis EGFR-AF [place] >60 Normal >=60 [facility] Comment on above: Performed By: #### 4 [id number] #### [facility] [address] [address] [address] Beth Alanis EGFR-NON AF [place] >60 Normal >=60 [facility] Comment on above: Performed By: #### 4 [id number] #### [facility] [address] [address] [address] Beth Alanis Globulin (S) [Mass/Vol] 5.0 g/dL Normal [facility] Comment on above: Performed By: #### 4 [id number] #### [facility] [address] [address] [address] Beth Alanis Glucose [Mass/Vol] 108 mg/dL Critically high 74-106 [facility] Comment on above: Performed By: #### 4 [id number] #### [facility] [address] [address] [address] Beth Alanis Potassium [Moles/Vol] 3.9 mmol/L Normal 3.5-5.1 [facility] Comment on above: Performed By: #### 4 [id number] #### [facility] [address] [address] [address] Beth Alanis Protein [Mass/Vol] 8.8 g/dL Critically high 6.4-8.2 [facility] Comment on above: Performed By: #### 4 [id number] #### [facility] [address] [address] [address] Beth Alanis Sodium [Moles/Vol] 136 mmol/L Normal 136-145 [facility] Comment on above: Performed By: #### 4 [id number] #### [facility] [address] [address] [address] Beth Alanis Urea nitrogen [Mass/Vol] 17.0 mg/dL Normal 7.0-18.0 [facility] Comment on above: Performed By: #### 4 [id number] #### [facility] [address] [address] [address] Beth Alanis Urea nitrogen/Creatinine [Mass ratio] 18.3 mg/mg Normal [facility] Comment on above: Performed By: #### 4 [id number] #### [facility] [address] [address] [address] Beth Alanis MG MAMM SCREEN 3D LUCINDA CADon 11-22-2021 MG MAMM SCREEN 3D LUCINDA CAD Patient: SHAILESH BLAKE Exam Date: 11/22/2021 : 1970 Gender:F Ordering : DR MARTI JEREZ . Admission #: [id number] Family : Order #: [id number] CLICK HERE TO VIEW EXAM RADIOLOGY REPORT [...] Treatments None Family Cancers None LOCATION: [facility] BREAST COMPOSITION: Heterogeneously dense,which may obscure [...] Gutierrez M.D. on 11/22/2021 at 15:52 Normal [facility] GLUCOSE BLOODon 11-21-2021 Glucose [Mass/Vol] 110 mg/dL Critically high 74-106 [facility] Comment on above: Performed By: #### [id number] #### [facility] [address] [address] [address] Beth Alanis LIPID PROFILEon 11-21-2021 CHOL-HDL RATIO NORM SEE BELOW Normal [facility] Comment on above: Result Comment: 3.3 - 4.4 LOW RISK 4.4 - 7.1 AVERAGE RISK 7.1 - 11.0 MODERATE RISK >11.0 HIGH RISK Performed By: #### 4 [id number] #### [facility] [address] [address] [address] Beth Alanis Cholesterol [Mass/Vol] 258 mg/dL Critically high <=200 [facility] Comment on above: Performed By: #### 4 [id number] #### [facility] [address] [address] [address] Beth Alanis Cholesterol in HDL [Mass/Vol] 34 mg/dL Critically low 40-60 [facility] Comment on above: Performed By: #### 4 [id number] #### [facility] [address] [address] [address] Beth Alanis Cholesterol in LDL [Mass/Vol] 161.4 mg/dL Normal [facility] Comment on above: Performed By: #### 4 [id number] #### [facility] [address] [address] [address] Beth Alanis Cholesterol.total/C holesterol in HDL [Mass ratio] 7.6 {ratio} Normal [facility] Comment on above: Performed By: #### 4 [id number] #### [facility] [address] [address] [address] Beth Alanis HDL NORMAL > or = 60 mg/dl - LO W CARDIOVASCULAR RISK <40 mg/dl - HIGH CARDIOVASCULAR RISK Normal [facility] Comment on above: Performed By: #### 4 [id number] #### [facility] [address] [place] [address] Dr. Beth Alanis LDL CALC NORMAL SEE BELOW Normal [facility] Comment on above: Result Comment: <100 mg/dl OPTIMAL 100 - 129 mg/dl NEAR OR ABOVE OPTIMAL 130 - 159 mg/dl BORDERLINE HIGH 160 - 189 mg/dl HIGH >190 mg/dl VERY HIGH Performed By: #### 4 [id number] #### [facility] [address] [place] [address] Dr. Beth Alanis Triglyceride [Mass/Vol] 313 mg/dL Critically high <=150 [facility] Comment on above: Performed By: #### 4 [id number] #### [facility] [address] [place] [address] Dr. Beth Alanis VLDL CALC 62.6 mg/dL Normal [facility] Comment on above: Performed By: #### [id number] #### [facility] [address] [place] [address] Dr. Beth Alanis BNPon 10-23-2021 Natriuretic peptide B (Bld) [Mass/Vol] 15.0 pg/mL Normal <=900.0 [facility] Comment on above: Performed By: #### B SENIOR STOCK PLAN ADMINISTRATOR, BMP, HSTROPN #### [facility] [address] [place] [address] Dr. Beth Alanis CBC AUTO DIFFon 10-23-2021 BASO # 0.1 103/ul Normal 0.0-0.1 [facility] Comment on above: Performed By: #### B SENIOR STOCK PLAN ADMINISTRATOR, BMP, HSTROPN #### [facility] [address] [place] [address] Dr. Beth Alanis Basophils/100 WBC (Bld) 0.6 % Normal 0.2-2.0 [facility] Comment on above: Performed By: #### B SENIOR STOCK PLAN ADMINISTRATOR, BMP, HSTROPN #### [facility] [address] [place] [address] Dr. Beth Alanis EO # 0.1 103/ul Normal 0.0-0.7 [facility] Comment on above: Performed By: #### B SENIOR STOCK PLAN ADMINISTRATOR, BMP, HSTROPN #### [facility] [address] [place] [address] Dr. Beth Alanis Eosinophils/100 WBC (Bld) 1.8 % Normal 0.9-7.0 [facility] Comment on above: Performed By: #### B SENIOR STOCK PLAN ADMINISTRATOR, BMP, HSTROPN #### [facility] [address] [place] [address] Dr. Beth Alanis Erythrocyte distribution width (RBC) [Ratio] 13.6 % Normal 11.0-15.0 [facility] Comment on above: Performed By: #### B SENIOR STOCK PLAN ADMINISTRATOR, BMP, HSTROPN #### [facility] [address] [place] [address] Dr. Beth Alanis Hematocrit (Bld) [Volume fraction] 46.6 % Normal 36.0-48.0 [facility] Comment on above: Performed By: #### B SENIOR STOCK PLAN ADMINISTRATOR, BMP, HSTROPN #### [facility] [address] [place] [address] Dr. Beth Alanis Hemoglobin (Bld) [Mass/Vol] 15.1 g/dL Normal 12.0-16.0 [facility] Comment on above: Performed By: #### B SENIOR STOCK PLAN ADMINISTRATOR, BMP, HSTROPN #### [facility] [address] [place] [address] Dr. Beth Alanis IG # 0.02 10e3/ul Normal 0.00-0.03 [facility] Comment on above: Performed By: #### B SENIOR STOCK PLAN ADMINISTRATOR, BMP, HSTROPN #### [facility] [address] [place] [address] Dr. Beth Alanis IG % 0.3 % Normal 0.0-0.5 [facility] Comment on above: Performed By: #### B SENIOR STOCK PLAN ADMINISTRATOR, BMP, HSTROPN #### [facility] [address] [place] [address] Dr. Beth Alanis LYMPH # 1.9 103/ul Normal 1.2-3.8 [facility] Comment on above: Performed By: #### B SENIOR STOCK PLAN ADMINISTRATOR, BMP, HSTROPN #### [facility] [address] [place] [address] Dr. Beth Alanis Lymphocytes/100 WBC (Bld) 23.9 % Normal 20.5-60.0 [facility] Comment on above: Performed By: #### B SENIOR STOCK PLAN ADMINISTRATOR, BMP, HSTROPN #### [facility] [address] [place] [address] Dr. Beth Alanis MANUAL DIFF REQ NO Normal [facility] Comment on above: Performed By: #### B SENIOR STOCK PLAN ADMINISTRATOR, BMP, HSTROPN #### [facility] [address] [place] [address] Dr. Beth Alanis MCH (RBC) [Entitic mass] 29.8 pg Normal 26.7-34.0 [facility] Comment on above: Performed By: #### B SENIOR STOCK PLAN ADMINISTRATOR, BMP, HSTROPN #### [facility] [address] [place] [address] Dr. Beth Alanis MCHC (RBC) [Mass/Vol] 32.4 g/dL Normal 29.9-35.2 [facility] Comment on above: Performed By: #### B SENIOR STOCK PLAN ADMINISTRATOR, BMP, HSTROPN #### [facility] [address] [place] [address] Dr. Beth Alanis MCV (RBC) [Entitic vol] 91.9 fL Normal 81.0-99.0 [facility] Comment on above: Performed By: #### B SENIOR STOCK PLAN ADMINISTRATOR, BMP, HSTROPN #### [facility] [address] [place] [address] Dr. Beth Alanis MONO # 0.6 103/ul Normal 0.3-0.8 [facility] Comment on above: Performed By: #### B SENIOR STOCK PLAN ADMINISTRATOR, BMP, HSTROPN #### [facility] [address] [place] [address] Dr. Beth Alanis Monocytes/100 WBC (Bld) 7.7 % Normal 1.7-12.0 [facility] Comment on above: Performed By: #### B SENIOR STOCK PLAN ADMINISTRATOR, BMP, HSTROPN #### [facility] [address] [place] [address] Dr. Beth Alanis NEUT # 5.1 103/ul Normal 1.4-6.5 [facility] Comment on above: Performed By: #### B SENIOR STOCK PLAN ADMINISTRATOR, BMP, HSTROPN #### [facility] [address] [place] [address] Dr. Beth Alanis Neutrophils/100 WBC (Bld) 65.7 % Normal 43.0-75.0 [facility] Comment on above: Performed By: #### B SENIOR STOCK PLAN ADMINISTRATOR, BMP, HSTROPN #### [facility] [address] [place] [address] Dr. Beth Alanis Platelet mean volume (Bld) [Entitic vol] 9.6 fL Normal 9.5-13.5 [facility] Comment on above: Performed By: #### B SENIOR STOCK PLAN ADMINISTRATOR, BMP, HSTROPN #### [facility] [address] [place] [address] Dr. Beth Alanis PLT 324 103/ul Normal 150-450 [facility] Comment on above: Performed By: #### B SENIOR STOCK PLAN ADMINISTRATOR, BMP, HSTROPN #### [facility] [address] [place] [address] Dr. Beth Alanis RBC 5.07 106/ul Normal 4.20-5.40 [facility] Comment on above: Performed By: #### B SENIOR STOCK PLAN ADMINISTRATOR, BMP, HSTROPN #### [facility] [address] [place] [address] Dr. Beth Alanis WBC 7.8 103/ul Normal 4.0-11.0 [facility] Comment on above: Performed By: #### B SENIOR STOCK PLAN ADMINISTRATOR, BMP, HSTROPN #### [facility] [address] [place] [address] Dr. Beth Alanis PROF CHEM 8 (BAS METB)on Anion gap [Moles/Vol] 6.7 mmol/L Normal [facility] Comment on above: Performed By: #### B SENIOR STOCK PLAN ADMINISTRATOR, BMP, HSTROPN #### [facility] [address] [place] [address] Dr. Beth Alanis Calcium [Mass/Vol] 9.3 mg/dL Normal 8.5-10.1 [facility] Comment on above: Performed By: #### B SENIOR STOCK PLAN ADMINISTRATOR, BMP, HSTROPN #### [facility] [address] [address] [address] Beth Alanis Chloride [Moles/Vol] 104 mmol/L Normal 98-107 [facility] Comment on above: Performed By: #### B SENIOR STOCK PLAN ADMINISTRATOR, BMP, HSTROPN #### [facility] [address] [address] [address] Beth Alanis CO2 [Moles/Vol] 31.3 mmol/L Normal 21.0-32.0 [facility] Comment on above: Performed By: #### B SENIOR STOCK PLAN ADMINISTRATOR, BMP, HSTROPN #### [facility] [address] [place] [address] Dr. Beth Alanis Creatinine [Mass/Vol] 0.98 mg/dL Normal 0.55-1.02 [facility] Comment on above: Performed By: #### B SENIOR STOCK PLAN ADMINISTRATOR, BMP, HSTROPN #### [facility] [address] [place] [address] Dr. Beth Alanis EGFR-AF COSTA RICAN >60 Normal >=60 [facility] Comment on above: Performed By: #### B SENIOR STOCK PLAN ADMINISTRATOR, BMP, HSTROPN #### [facility] [address] [place] [address] Dr. Beth Alanis EGFR-NON AF COSTA RICAN =60 Normal >=60 [facility] Comment on above: Performed By: #### B SENIOR STOCK PLAN ADMINISTRATOR, BMP, HSTROPN #### [facility] [address] [address] [address] Beth Alanis Glucose [Mass/Vol] 104 mg/dL Normal 74-106 [facility] Comment on above: Performed By: #### B SENIOR STOCK PLAN ADMINISTRATOR, BMP, HSTROPN #### [facility] [address] [place] [address] Dr. Beth Alanis Potassium [Moles/Vol] 4.0 mmol/L Normal 3.5-5.1 [facility] Comment on above: Performed By: #### B SENIOR STOCK PLAN ADMINISTRATOR, BMP, HSTROPN #### [facility] [address] [place] [address] Dr. Beth Alanis Sodium [Moles/Vol] 138 mmol/L Normal 136-145 [facility] Comment on above: Performed By: #### B SENIOR STOCK PLAN ADMINISTRATOR, BMP, HSTROPN #### [facility] [address] [address] [address] Beth Alanis Urea nitrogen [Mass/Vol] 12.0 mg/dL Normal 7.0-18.0 [facility] Comment on above: Performed By: #### B SENIOR STOCK PLAN ADMINISTRATOR, BMP, HSTROPN #### [facility] [address] [address] [address] Beth Alanis Urea nitrogen/Creatinine [Mass ratio] 12.2 mg/mg Normal [facility] Comment on above: Performed By: #### B SENIOR STOCK PLAN ADMINISTRATOR, BMP, HSTROPN #### [facility] [address] [address] [address] Beth Alanis TROPONIN, HIGH SENSITIVITYon 10-23-2021 HSTROP 5.6 pg/mL Normal 4.0-51.3 [facility] Comment on above: Result Comment: CUT- OFF POINTS HAVE BEEN ESTABLISHED BASED ON THE FOURTH UNIVERSAL DEFINITIONS OF MYOCARDIAL INFARCTION. THE UPPER REFERENCE LIMIT (URL) OF TROPONIN, DEFINED THE 99TH PERCENTILE OF cTnI DISTRIBUTION IN A REFERENCE POPULATION, HAS BEEN CONFIRMED THE DECISION THRESHOLD FOR [place] DIAGNOSIS. Performed By: #### B SENIOR STOCK PLAN ADMINISTRATOR, BMP, HSTROPN #### [facility] [address] [place] [address] Dr. Beth Alanis XR CHEST 1 Von [...] by: CHELY KEITH Date: 2021-10-23 16:45 Normal [facility] INSULINon 09-05-2021 Insulin 26.0 uIU/mL Critically high 2.6-24.9 [facility] Comment on above: Performed By: #### 4 [id number] #### [facility] [address] [address] [address] Beth Alanis OCC BLD IMMUNO SCREENon 08-26 OCCULT BLOOD Negative Normal NEGATIVE [facility] Comment on above: Performed By: #### O BSCRN #### [facility] [address] [place] [address] Dr. Beth Alanis CBC AUTO DIFFon 09-04-2021 BASO # 0.0 103/ul Normal 0.0-0.1 [facility] Comment on above: Performed By: #### C BC #### [facility] [address] [place] [address] Dr. Beth Alanis Basophils/100 WBC (Bld) 0.4 % Normal 0.2-2.0 [facility] Comment on above: Performed By: #### C BC #### [facility] [address] [place] [address] Dr. Beth Alanis EO # 0.1 103/ul Normal 0.0-0.7 [facility] Comment on above: Performed By: #### C BC #### [facility] [address] [place] [address] Dr. Beth Alanis Eosinophils/100 WBC (Bld) 1.2 % Normal 0.9-7.0 [facility] Comment on above: Performed By: #### C BC #### [facility] [address] [place] [address] Dr. Beth Alanis Erythrocyte distribution width (RBC) [Ratio] 14.1 % Normal 11.0-15.0 [facility] Comment on above: Performed By: #### C BC #### [facility] [address] [place] [address] Dr. Beth Alanis Hematocrit (Bld) [Volume fraction] 44.1 % Normal 36.0-48.0 [facility] Comment on above: Performed By: #### C BC #### [facility] [address] [place] [address] Dr. Beth Alanis Hemoglobin (Bld) [Mass/Vol] 14.6 g/dL Normal 12.0-16.0 [facility] Comment on above: Performed By: #### C BC #### [facility] [address] [place] [address] Dr. Beth Alanis IG # 0.03 10e3/ul Normal 0.00-0.03 [facility] Comment on above: Performed By: #### C BC #### [facility] [address] [place] [address] Dr. Beth Alanis IG % 0.3 % Normal 0.0-0.5 [facility] Comment on above: Performed By: #### C BC #### [facility] [address] [place] [address] Dr. Beth Alanis LYMPH # 1.9 103/ul Normal 1.2-3.8 [facility] Comment on above: Performed By: #### C BC #### [facility] [address] [place] [address] Dr. Beth Alanis Lymphocytes/100 WBC (Bld) 17.8 % Critically low 20.5-60.0 [facility] Comment on above: Performed By: #### C BC #### [facility] [address] [place] [address] Dr. Beth Alanis MANUAL DIFF REQ NO Normal [facility] Comment on above: Performed By: #### C BC #### [facility] [address] [place] [address] Dr. Beth Alanis MCH (RBC) [Entitic mass] 30.3 pg Normal 26.7-34.0 [facility] Comment on above: Performed By: #### C BC #### [facility] [address] [place] [address] Dr. Beth Alanis MCHC (RBC) [Mass/Vol] 33.1 g/dL Normal 29.9-35.2 [facility] Comment on above: Performed By: #### C BC #### [facility] [address] [place] [address] Dr. Beth Alanis MCV (RBC) [Entitic vol] 91.5 fL Normal 81.0-99.0 [facility] Comment on above: Performed By: #### C BC #### [facility] [address] [address] [address] Beth Alanis MONO # 0.9 103/ul Critically high 0.3-0.8 [facility] Comment on above: Performed By: #### C BC #### [facility] [address] [address] [address] Beth Alanis Monocytes/100 WBC (Bld) 8.9 % Normal 1.7-12.0 [facility] Comment on above: Performed By: #### C BC #### [facility] [address] [address] [address] Beth Alanis NEUT # 7.6 103/ul Critically high 1.4-6.5 [facility] Comment on above: Performed By: #### C BC #### [facility] [address] [address] [address] Beth Alanis Neutrophils/100 WBC (Bld) 71.4 % Normal 43.0-75.0 [facility] Comment on above: Performed By: #### C BC #### [facility] [address] [address] [address] Beth Alanis Platelet mean volume (Bld) [Entitic vol] 9.7 fL Normal 9.5-13.5 [facility] Comment on above: Performed By: #### C BC #### [facility] [address] [address] [address] Beth Alanis PLT 377 103/ul Normal 150-450 [facility] Comment on above: Performed By: #### C BC #### [facility] [address] [address] [address] Beth Alanis RBC 4.82 106/ul Normal 4.20-5.40 [facility] Comment on above: Performed By: #### C BC #### [facility] [address] [address] [address] Beth Alanis WBC 10.6 103/ul Normal 4.0-11.0 [facility] Comment on above: Performed By: #### C BC #### [facility] [address] [address] [address] Beth Alanis FREE THYROXINE INDEX T7on FTI 3.20 Normal 1.30-4.50 [facility] Comment on above: Performed By: #### C MP, T7, LIPID, TSH #### [facility] [address] [address] [address] Beth Alanis T3U 33.0 % Normal 30.0-39.0 [facility] Comment on above: Performed By: #### C MP, T7, LIPID, TSH #### [facility] [address] [address] [address] Beth Alanis T4 [Mass/Vol] 9.70 ug/dL Normal 4.80-13.90 [facility] Comment on above: Performed By: #### C MP, T7, LIPID, TSH #### [facility] [address] [place] [address] Dr. Beth Alanis GLYCOHEMOGLOBIN A1Con 2021 ADA RECOMMENDATION SEE BELOW Normal [facility] Comment on above: Result Comment: ADA RECOMMENDED LIMIT 4.0 - 6.0 ADA THERAPEUTIC TARGET < 7.0 ACTION SUGGESTED > 7.0 Performed By: #### 4 [id number] #### [facility] [address] [place] [address] Dr. Beth Alanis Glucose [Mass/Vol] 114 mg/dL Normal [facility] Comment on above: Performed By: #### 4 [id number] #### [facility] [address] [place] [address] Dr. Beth Alanis HbA1c (Bld) [Mass fraction] 5.6 % Normal 4.5-6.2 [facility] Comment on above: Performed By: #### 4 [id number] #### [facility] [address] [place] [address] Dr. Beth Alanis IRONon 09-04-2021 Iron [Mass/Vol] 73.0 ug/dL Normal 50.0-170.0 [facility] Comment on above: Performed By: #### 4 [id number] #### [facility] [address] [address] [address] Beth Alanis LIPID PROFILEon 09-04-2021 CHOL-HDL RATIO NORM SEE BELOW Normal [facility] Comment on above: Result Comment: 3.3 - 4.4 LOW RISK 4.4 - 7.1 AVERAGE RISK 7.1 - 11.0 MODERATE RISK >11.0 HIGH RISK Performed By: #### 4 [id number] #### [facility] [address] [address] [address] Beth Alanis Cholesterol [Mass/Vol] 229 mg/dL Critically high <=200 [facility] Comment on above: Performed By: #### 4 [id number] #### [facility] [address] [address] [address] Beth Alanis Cholesterol in HDL [Mass/Vol] 49 mg/dL Normal 40-60 [facility] Comment on above: Performed By: #### 4 [id number] #### [facility] [address] [address] [address] Beth Alanis Cholesterol in LDL [Mass/Vol] 160.2 mg/dL Normal [facility] Comment on above: Performed By: #### 4 [id number] #### [facility] [address] [address] [address] Beth Alanis Cholesterol.total/C holesterol in HDL [Mass ratio] 4.7 {ratio} Normal [facility] Comment on above: Performed By: #### 4 [id number] #### [facility] [address] [address] [address] Beth Alanis HDL NORMAL > or = 60 mg/dl - LO W CARDIOVASCULAR RISK <40 mg/dl - HIGH CARDIOVASCULAR RISK Normal [facility] Comment on above: Performed By: #### 4 [id number] #### [facility] [address] [address] [address] Beth Aalnis LDL CALC NORMAL SEE BELOW Normal [facility] Comment on above: Result Comment: <100 mg/dl OPTIMAL 100 - 129 mg/dl NEAR OR ABOVE OPTIMAL 130 - 159 mg/dl BORDERLINE HIGH 160 - 189 mg/dl HIGH >190 mg/dl VERY HIGH Performed By: #### 4 [id number] #### [facility] [address] [place] [address] Dr. Beth Alanis Triglyceride [Mass/Vol] 99 mg/dL Normal <=150 [facility] Comment on above: Performed By: #### 4 [id number] #### [facility] [address] [place] [address] Dr. Beth Alanis VLDL CALC 19.8 mg/dL Normal [facility] Comment on above: Performed By: #### 4 [id number] #### [facility] [address] [place] [address] Dr. Beth Alanis PROF 14(COMP METB)on 022 Albumin [Mass/Vol] 3.6 g/dL Normal 3.4-5.0 [facility] Comment on above: Performed By: #### 4 [id number] #### [facility] [address] [place] [address] Dr. Beth Alanis Albumin/Globulin [Mass ratio] 0.8 {ratio} Normal [facility] Comment on above: Performed By: #### 4 [id number] #### [facility] [address] [place] [address] Dr. Beth Alanis ALP [Catalytic activity/Vol] 107 U/L Normal 46-116 [facility] Comment on above: Performed By: #### 4 [id number] #### [facility] [address] [place] [address] Dr. Beth Alanis ALT [Catalytic activity/Vol] 31 U/L Normal 14-59 [facility] Comment on above: Performed By: #### 4 [id number] #### [facility] [address] [place] [address] Dr. Beth Alanis Anion gap [Moles/Vol] 14.4 mmol/L Normal [facility] Comment on above: Performed By: #### 4 [id number] #### [facility] [address] [place] [address] Dr. Beth Alanis AST [Catalytic activity/Vol] 11 U/L Critically low 15-37 [facility] Comment on above: Performed By: #### 4 [id number] #### [facility] [address] [address] [address] Beth Alanis Bilirubin [Mass/Vol] 0.4 mg/dL Normal 0.2-1.0 [facility] Comment on above: Performed By: #### 4 [id number] #### [facility] [address] [place] [address] Dr. Beth Alanis Calcium [Mass/Vol] 9.0 mg/dL Normal 8.5-10.1 [facility] Comment on above: Performed By: #### 4 [id number] #### [facility] [address] [place] [address] Dr. Beth Alanis Chloride [Moles/Vol] 103 mmol/L Normal 98-107 [facility] Comment on above: Performed By: #### 4 [id number] #### [facility] [address] [place] [address] Dr. Beth Alanis CO2 [Moles/Vol] 24.7 mmol/L Normal 21.0-32.0 [facility] Comment on above: Performed By: #### 4 [id number] #### [facility] [address] [place] [address] Dr. Beth Alanis Creatinine [Mass/Vol] 0.92 mg/dL Normal 0.55-1.02 [facility] Comment on above: Performed By: #### 4 [id number] #### [facility] [address] [place] [address] Dr. Beth Alanis EGFR-AF COSTA RICAN >60 Normal >=60 [facility] Comment on above: Performed By: #### 4 [id number] #### [facility] [address] [place] [address] Dr. Beth Alanis EGFR-NON AF COSTA RICAN >60 Normal >=60 [facility] Comment on above: Performed By: #### 4 [id number] #### [facility] [address] [place] [address] Dr. Beth Alanis Globulin (S) [Mass/Vol] 4.5 g/dL Normal [facility] Comment on above: Performed By: #### 4 [id number] #### [facility] [address] [place] [address] Dr. Beth Alanis Glucose [Mass/Vol] 100 mg/dL Normal 74-106 [facility] Comment on above: Performed By: #### 4 [id number] #### [facility] [address] [address] [address] Beth Alanis Potassium [Moles/Vol] 4.1 mmol/L Normal 3.5-5.1 [facility] Comment on above: Performed By: #### 4 [id number] #### [facility] [address] [place] [address] Dr. Beth Alanis Protein [Mass/Vol] 8.1 g/dL Normal 6.4-8.2 [facility] Comment on above: Performed By: #### 4 [id number] #### [facility] [address] [place] [address] Dr. Beth Alanis Sodium [Moles/Vol] 138 mmol/L Normal 136-145 [facility] Comment on above: Performed By: #### 4 [id number] #### [facility] [address] [place] [address] Dr. Beth Alanis Urea nitrogen [Mass/Vol] 27.0 mg/dL Critically high 7.0-18.0 [facility] Comment on above: Performed By: #### 4 [id number] #### [facility] [address] [place] [address] Dr. Beth Alanis Urea nitrogen/Creatinine [Mass ratio] 29.3 mg/mg Normal [facility] Comment on above: Performed By: #### 4 [id number] #### [facility] [address] [place] [address] Dr. Beth Alanis TSHon 09-04-2021 TSH 3.758 uIU/mL Critically high 0.358-3.740 [facility] Comment on above: Performed By: #### C MP, T7, LIPID, TSH #### [facility] [address] [place] [address] Dr. Beth Alanis TSH RANGE SEE BELOW Normal [facility] Comment on above: Result Comment: <0.3 4 UIU/ml HYPERTHYROID 0.34-5.60 UIU/ml EUTHYROID >5.60 UIU/ml HYPOTHYROID Performed By: #### C MP, T7, LIPID, TSH #### [facility] [address] [place] [address] Dr. Beth Alanis CTA HEART-CORONARY/ ARTERY B YPASS GRAFT WITH 3DPPon 04-26-2021 CTA HEART-CORONARY/ ARTERY BYPASS GRAFT WITH 3DPP [facility] Department of Radiology [address] [place] [address] Patient Name: SHAILESH BLAKE : 1970 Sex: F Age: Race: White Pt. Location: [facility] Patient Status: D Ordered Date: 03/19/2021 8:55:00 AM Completed Date: 04/26/2021 11:45 AM Requesting Provider: MELANIA ABARCA Attending Provider: MELANIA ABARCA Report Copy To: Signs & Symptoms: R94.39 Abnormal result of other cardiovascular function study History: Order in RIS [id number] Is patient on meds for HTN or [...] achievable Electronically signed: Corazon Carter. Transcribed by: [email or web address], User Resident: Electronically Signed by: CORAZON CARTER @ 04/30/2021 09:22 AM Normal [facility] Vital Signs Date Time Vital Sign Value Performing Clinician Facility 09-29-2024 10:55-0400 Body height 172.72 cm Alyssa Mortensenmer SENIOR STOCK PLAN ADMINISTRATOR-C Work Phone: [facility] 09-29-2024 10:55-0400 Body mass index (BMI) [Ratio] 53.5 kg/m2 Alyssa Mortensenmer SENIOR STOCK PLAN ADMINISTRATOR-C Work Phone: [facility] 09-29-2024 10:55-0400 Body weight 159.66 kg Alyssa Maxwell SENIOR STOCK PLAN ADMINISTRATOR-C Work Phone: [facility] 09-29-2024 10:55-0400 Diastolic blood pressure 72 mm[Hg] Alyssa Maxwell SENIOR STOCK PLAN ADMINISTRATOR-C Work Phone: [facility] 09-29-2024 10:55-0400 Heart rate 86 /min Alyssa Maxwell SENIOR STOCK PLAN ADMINISTRATOR-C Work Phone: [facility] 09-29-2024 10:55-0400 SaO2% (BldA) [Mass fraction] 96 % Alyssa Maxwell SENIOR STOCK PLAN ADMINISTRATOR-C Work Phone: [facility] 09-29-2024 10:55-0400 Systolic blood pressure 118 mm[Hg] Alyssa Maxwell SENIOR STOCK PLAN ADMINISTRATOR-C Work Phone: [facility] 09-15-2024 09:55-0400 Body mass index (BMI) [Ratio] 53.67 kg/m2 Cheyanne Schilling SENIOR STOCK PLAN ADMINISTRATOR Work Phone: [facility] 09-15-2024 09:55-0400 Body weight 160.12 kg Cheyanne Schillign SENIOR STOCK PLAN ADMINISTRATOR Work Phone: [facility] 09-15-2024 09:55-0400 Diastolic blood pressure 95 mm[Hg] Cheyanne Schilling SENIOR STOCK PLAN ADMINISTRATOR Work Phone: [facility] 09-15-2024 09:55-0400 Heart rate 79 /min Cheyanne Schilling SENIOR STOCK PLAN ADMINISTRATOR Work Phone: [facility] 09-15-2024 09:55-0400 Systolic blood pressure 141 mm[Hg] Cheyanne Schilling SENIOR STOCK PLAN ADMINISTRATOR Work Phone: [facility] 07-08-2024 15:01-0400 Diastolic blood pressure 80 mm[Hg] Alyssapollo Arreola SENIOR STOCK PLAN ADMINISTRATOR-C Work Phone: [facility] 07-08-2024 15:01-0400 Heart rate 77 /min Alyssa Arreola SENIOR STOCK PLAN ADMINISTRATOR-C Work Phone: [facility] 07-08-2024 15:01-0400 SaO2% (BldA) [Mass fraction] 96 % Alyssapollo Arreola SENIOR STOCK PLAN ADMINISTRATOR-C Work Phone: [facility] 07-08-2024 15:01-0400 Systolic blood pressure 120 mm[Hg] Alyssa Arreola SENIOR STOCK PLAN ADMINISTRATOR-C Work Phone: [facility] 06-16-2024 09:22-0500 Body height 172.72 cm Alyssa Arreola SENIOR STOCK PLAN ADMINISTRATOR-C Work Phone: [facility] 06-16-2024 09:22-0500 Body mass index (BMI) [Ratio] 54.3 kg/m2 Alyssapollo Mortensenmer SENIOR STOCK PLAN ADMINISTRATOR-C Work Phone: [facility] 06-16-2024 09:22-0500 Body weight 162.1 kg Alyssa Arreola SENIOR STOCK PLAN ADMINISTRATOR-C Work Phone: [facility] 06-16-2024 09:22-0500 Heart rate 97 /min Alyssa Mortensenmer SENIOR STOCK PLAN ADMINISTRATOR-C Work Phone: [facility] 06-16-2024 09:22-0500 SaO2% (BldA) [Mass fraction] 96 % Alyssa Maxwell SENIOR STOCK PLAN ADMINISTRATOR-C Work Phone: [facility] 06-03-2024 13:19-0500 Body mass index (BMI) [Ratio] 55.35 kg/m2 Cheyanne Schilling SENIOR STOCK PLAN ADMINISTRATOR Work Phone: [facility] 06-03-2024 13:19-0500 Body weight 165.11 kg Cheyanne Schilling SENIOR STOCK PLAN ADMINISTRATOR Work Phone: [facility] 06-03-2024 13:19-0500 Diastolic blood pressure 80 mm[Hg] Cheyanne Schilling SENIOR STOCK PLAN ADMINISTRATOR Work Phone: [facility] 06-03-2024 13:19-0500 Heart rate 95 /min Cheyanen Schilling SENIOR STOCK PLAN ADMINISTRATOR Work Phone: [facility] 06-03-2024 13:19-0500 SaO2% (BldA) [Mass fraction] 99 % Cheyanne Schilling SENIOR STOCK PLAN ADMINISTRATOR Work Phone: [facility] 06-03-2024 13:19-0500 Systolic blood pressure 134 mm[Hg] Cheyanne Schilling SENIOR STOCK PLAN ADMINISTRATOR Work Phone: [facility] 05-05-2024 11:09-0500 Body height 172.7 cm Cheyanne Schilling SENIOR STOCK PLAN ADMINISTRATOR Work Phone: [facility] 05-05-2024 11:09-0500 Body mass index (BMI) [Ratio] 53.52 kg/m2 Cheyanne Schilling SENIOR STOCK PLAN ADMINISTRATOR Work Phone: [facility] 05-05-2024 11:09-0500 Body weight 159.67 kg Cheyanne Schilling SENIOR STOCK PLAN ADMINISTRATOR Work Phone: [facility] 05-05-2024 11:09-0500 Diastolic blood pressure 88 mm[Hg] Cheyanne Dardenoll SENIOR STOCK PLAN ADMINISTRATOR Work Phone: [facility] 05-05-2024 11:09-0500 Heart rate 104 /min Cheyanne Schilling SENIOR STOCK PLAN ADMINISTRATOR Work Phone: [facility] 05-05-2024 11:09-0500 SaO2% (BldA) [Mass fraction] 96 % Cheyanne Schilling SENIOR STOCK PLAN ADMINISTRATOR Work Phone: [facility] 05-05-2024 11:09-0500 Systolic blood pressure 144 mm[Hg] Cheyanne Schilling SENIOR STOCK PLAN ADMINISTRATOR Work Phone: [facility] 03-10-2024 12:51-0500 Body height 172.7 cm Tank Anisha DO Work Phone: [facility] 03-10-2024 12:51-0500 Body mass index (BMI) [Ratio] 53.76 kg/m2 Tank Anisha DO Work Phone: [facility] 03-10-2024 12:51-0500 Body weight 160.39 kg Tank Anisha DO Work Phone: [facility] 03-10-2024 12:51-0500 Diastolic blood pressure 88 mm[Hg] Tank Anisha DO Work Phone: [facility] 03-10-2024 12:51-0500 Heart rate 81 /min Tank Anisha DO Work Phone: [facility] 03-10-2024 12:51-0500 SaO2% (BldA) [Mass fraction] 96 % Tank Anisha DO Work Phone: [facility] 03-10-2024 12:51-0500 Systolic blood pressure 132 mm[Hg] Tank Anisha DO Work Phone: [facility] 03-04-2024 15:08-0500 Body height 172.7 cm Cheyanne Schilling SENIOR STOCK PLAN ADMINISTRATOR Work Phone: [facility] 03-04-2024 15:08-0500 Body mass index (BMI) [Ratio] 53.98 kg/m2 Cheyanne Schilling SENIOR STOCK PLAN ADMINISTRATOR Work Phone: [facility] 03-04-2024 15:08-0500 Body weight 161.03 kg Cheyanne Schilling SENIOR STOCK PLAN ADMINISTRATOR Work Phone: [facility] 03-04-2024 15:08-0500 Diastolic blood pressure 86 mm[Hg] Cheyanne Schilling SENIOR STOCK PLAN ADMINISTRATOR Work Phone: [facility] 03-04-2024 15:08-0500 Heart rate 103 /min Cheyanne Schilling SENIOR STOCK PLAN ADMINISTRATOR Work Phone: [facility] 03-04-2024 15:08-0500 SaO2% (BldA) [Mass fraction] 98 % Cheyanne Schilling SENIOR STOCK PLAN ADMINISTRATOR Work Phone: [facility] 03-04-2024 15:08-0500 Systolic blood pressure 132 mm[Hg] Cheyanne Schilling SENIOR STOCK PLAN ADMINISTRATOR Work Phone: [facility] 02-12-2024 08:56-0400 Blood Pressure Location KAYY MIRAMONTES [facility] 02-12-2024 08:56-0400 Body temperature 98.6 [degF] KAYY THERESA [facility] 02-12-2024 08:56-0400 Diastolic blood pressure 89 mm[Hg] KAYY THERESA [facility] 02-12-2024 08:56-0400 Heart rate 75 /min KAYY THERESA [facility] 02-12-2024 08:56-0400 Respiratory rate 16 /min KAYY THERESA [facility] 02-12-2024 08:56-0400 Systolic blood pressure 133 mm[Hg] KAYY THERESA [facility] 02-11-2024 10:34-0400 Body height 172.7 cm Cheyanne Schilling SENIOR STOCK PLAN ADMINISTRATOR Work Phone: [facility] 02-11-2024 10:34-0400 Body mass index (BMI) [Ratio] 53.28 kg/m2 Cheyanne Schilling SENIOR STOCK PLAN ADMINISTRATOR Work Phone: [facility] 02-11-2024 10:34-0400 Body weight 158.94 kg Cheyanne Schilling SENIOR STOCK PLAN ADMINISTRATOR Work Phone: [facility] 02-11-2024 10:34-0400 Diastolic blood pressure 80 mm[Hg] Cheyanne Schilling SENIOR STOCK PLAN ADMINISTRATOR Work Phone: [facility] 02-11-2024 10:34-0400 Heart rate 76 /min Cheyanne Schilling SENIOR STOCK PLAN ADMINISTRATOR Work Phone: [facility] 02-11-2024 10:34-0400 SaO2% (BldA) [Mass fraction] 98 % Cheyanne Schilling SENIOR STOCK PLAN ADMINISTRATOR Work Phone: [facility] 02-11-2024 10:34-0400 Systolic blood pressure 138 mm[Hg] Cheyanne Schilling SENIOR STOCK PLAN ADMINISTRATOR Work Phone: [facility] 01-15-2024 15:47-0400 Diastolic blood pressure 60 mm[Hg] SENIOR STOCK PLAN ADMINISTRATOR-C Alyssa Maxwell Work Phone: [facility] 01-15-2024 15:47-0400 Heart rate 82 /min SENIOR STOCK PLAN ADMINISTRATOR-C Alyssa Maxwell Work Phone: [facility] 01-15-2024 15:47-0400 SaO2% (BldA) [Mass fraction] 98 % SENIOR STOCK PLAN ADMINISTRATOR-C Alyssa Maxwell Work Phone: [facility] 01-15-2024 15:47-0400 Systolic blood pressure 102 mm[Hg] SENIOR STOCK PLAN ADMINISTRATOR-C Alyssa Maxwell Work Phone: [facility] 01-02-2024 10:32-0400 Body weight 159.21 kg SENIOR STOCK PLAN ADMINISTRATOR-C Alyssa Maxwell Work Phone: [facility] 01-02-2024 10:32-0400 Diastolic blood pressure 80 mm[Hg] SENIOR STOCK PLAN ADMINISTRATOR-C Alyssa Maxwell Work Phone: [facility] 01-02-2024 10:32-0400 Heart rate 81 /min SENIOR STOCK PLAN ADMINISTRATOR-C Alyssa Maxwell Work Phone: [facility] 01-02-2024 10:32-0400 SaO2% (BldA) [Mass fraction] 98 % SENIOR STOCK PLAN ADMINISTRATOR-C Alyssa Maxwell Work Phone: [facility] 01-02-2024 10:32-0400 Systolic blood pressure 130 mm[Hg] SENIOR STOCK PLAN ADMINISTRATOR-C Alyssa Maxwell Work Phone: [facility] 12-11-2023 10:35-0400 Body weight 161.93 kg SENIOR STOCK PLAN ADMINISTRATOR-C Alyssa Maxwell Work Phone: [facility] 12-11-2023 10:35-0400 Diastolic blood pressure 60 mm[Hg] SENIOR STOCK PLAN ADMINISTRATOR-C Alyssa Maxwell Work Phone: [facility] 12-11-2023 10:35-0400 Heart rate 72 /min SENIOR STOCK PLAN ADMINISTRATOR-C Alyssa Maxwell Work Phone: [facility] 12-11-2023 10:35-0400 SaO2% (BldA) [Mass fraction] 97 % SENIOR STOCK PLAN ADMINISTRATOR-C Alyssa Maxwell Work Phone: [facility] 12-11-2023 10:35-0400 Systolic blood pressure 102 mm[Hg] SENIOR STOCK PLAN ADMINISTRATOR-C Alysas Maxwell Work Phone: [facility] 09-04-2023 09:23-0400 Body weight 157.16 kg SENIOR STOCK PLAN ADMINISTRATOR-C Alyssa Maxwell Work Phone: [facility] 09-04-2023 09:23-0400 Diastolic blood pressure 70 mm[Hg] SENIOR STOCK PLAN ADMINISTRATOR-C Alyssa Maxwell Work Phone: [facility] 09-04-2023 09:23-0400 Heart rate 74 /min SENIOR STOCK PLAN ADMINISTRATOR-C Alyssa Maxwell Work Phone: [facility] 09-04-2023 09:23-0400 SaO2% (BldA) [Mass fraction] 98 % SENIOR STOCK PLAN ADMINISTRATOR-C Alyssa Maxwell Work Phone: [facility] 09-04-2023 09:23-0400 Systolic blood pressure 102 mm[Hg] SENIOR STOCK PLAN ADMINISTRATOR-C Alyssa Maxwell Work Phone: [facility] 07-29-2023 15:08-0400 Body temperature 98.42 [degF] KAYY THERESA [facility] 07-29-2023 15:08-0400 Diastolic blood pressure 88 mm[Hg] KAYY THERESA [facility] 07-29-2023 15:08-0400 Heart rate 71 /min KAYY THERESA [facility] 07-29-2023 15:08-0400 Respiratory rate 16 /min KAYY THERESA [facility] 07-29-2023 15:08-0400 Systolic blood pressure 138 mm[Hg] KAYY THERESA [facility] 06-04-2023 11:48-0500 Diastolic blood pressure 71 mm[Hg] SENIOR STOCK PLAN ADMINISTRATOR-C Alyssa Maxwell Work Phone: [facility] 06-04-2023 11:48-0500 Heart rate 76 /min SENIOR STOCK PLAN ADMINISTRATOR-C Alyssa Maxwell Work Phone: [facility] 06-04-2023 11:48-0500 Respiratory rate 16 /min SENIOR STOCK PLAN ADMINISTRATOR-C Alyssa Maxwell Work Phone: [facility] 06-04-2023 11:48-0500 SaO2% (BldA) [Mass fraction] 95 % SENIOR STOCK PLAN ADMINISTRATOR-C Alyssa Maxwell Work Phone: [facility] 06-04-2023 11:48-0500 Systolic blood pressure 126 mm[Hg] SENIOR STOCK PLAN ADMINISTRATOR-C Alyssa Maxwell Work Phone: [facility] 06-04-2023 09:51-0500 Body height 172.72 cm SENIOR STOCK PLAN ADMINISTRATOR-C Alyssa Maxwell Work Phone: [facility] 06-04-2023 09:51-0500 Body weight 146.51 kg SENIOR STOCK PLAN ADMINISTRATOR-C Alyssa Maxwell Work Phone: [facility] 05-19-2023 15:45-0500 Body height 168.91 cm Asif Cox Other [facility] 05-19-2023 15:45-0500 Body mass index (BMI) [Ratio] 54.69 kg/m2 Asif Cox Other [facility] Other 05-19-2023 15:45-0500 Body weight 156.04 kg Asif Cox Other [facility] Other 05-19-2023 15:45-0500 Body weight 156.03 kg SENIOR STOCK PLAN ADMINISTRATOR-C Alyssapollo Arreola Work Phone: [facility] 05-19-2023 15:45-0500 SaO2% (BldA) [Mass fraction] 97 % Asif Cox Other [facility] Other 04-09-2023 10:30-0500 Body height 168.91 cm Destini Kilgore Other [facility] Other 04-09-2023 10:30-0500 Body mass index (BMI) [Ratio] 54.3 kg/m2 Destini Kilgore Other [facility] Other 04-09-2023 10:30-0500 Body weight 154.95 kg Destini Kilgore Other [facility] Other 04-09-2023 10:30-0500 Diastolic blood pressure 87 mm[Hg] Destini Kilgore Other [facility] Other 04-09-2023 10:30-0500 SaO2% (BldA) [Mass fraction] 97 % Destini Kilgore Other [facility] Other 04-09-2023 10:30-0500 Systolic blood pressure 123 mm[Hg] Destini Kilgore Other [facility] Other 01-23-2023 16:00-0400 Body height 168.91 cm Asif Cox Other [facility] Other 01-23-2023 16:00-0400 Body mass index (BMI) [Ratio] 53.25 kg/m2 Asif Cox Other [facility] Other 01-23-2023 16:00-0400 Body weight 151.96 kg Asif Cox Other [facility] Other 01-23-2023 16:00-0400 Diastolic blood pressure 90 mm[Hg] Asif Cox Other [facility] Other 01-23-2023 16:00-0400 SaO2% (BldA) [Mass fraction] 97 % Asif Cox Other [facility] Other 01-23-2023 16:00-0400 Systolic blood pressure 140 mm[Hg] Asif Cox Other [facility] Other 01-09-2023 10:30-0400 Body height 168.91 cm Destini Kilgore Other [facility] Other 01-09-2023 10:30-0400 Body mass index (BMI) [Ratio] 53.25 kg/m2 Destini Kilgore Other [facility] Other 01-09-2023 10:30-0400 Body weight 151.96 kg Destini Kilgore Other [facility] Other 01-09-2023 10:30-0400 Diastolic blood pressure 86 mm[Hg] Destini Kilgore Other [facility] Other 01-09-2023 10:30-0400 Systolic blood pressure 124 mm[Hg] Destini Kilgore Other [facility] Other 11-07-2022 13:15-0400 Body height 168.91 cm Asif Cox Other [facility] Other 11-07-2022 13:15-0400 Body mass index (BMI) [Ratio] 55.32 kg/m2 Asif Cox Other [facility] Other 11-07-2022 13:15-0400 Body weight 157.85 kg Asif Cox Other [facility] Other 11-07-2022 13:15-0400 SaO2% (BldA) [Mass fraction] 95 % Asif Cox Other [facility] Other 10-31-2022 16:00-0400 Body height 168.91 cm Asif Cox Other [facility] Other 10-31-2022 16:00-0400 Body mass index (BMI) [Ratio] 54.62 kg/m2 Asif Cox Other [facility] Other 10-31-2022 16:00-0400 Body weight 155.86 kg Asif Cox Other [facility] Other 10-31-2022 16:00-0400 Diastolic blood pressure 84 mm[Hg] Asif Cox Other [facility] Other 07-06-2023 16:00-0400 SaO2% (BldA) [Mass fraction] 97 % Asif Cox Other [facility] Other 10-31-2022 16:00-0400 Systolic blood pressure 126 mm[Hg] Asif Cox Other [facility] Other 08-07-2022 17:30-0400 Body height 168.91 cm Asif Cox Other [facility] Other 08-07-2022 17:30-0400 Body mass index (BMI) [Ratio] 54.53 kg/m2 Asif Cox Other [facility] Other 08-07-2022 17:30-0400 Body weight 155.58 kg Asif Cox Other [facility] Other 08-07-2022 17:30-0400 Diastolic blood pressure 96 mm[Hg] Asif Cox Other [facility] Other 08-07-2022 17:30-0400 SaO2% (BldA) [Mass fraction] 99 % Asif Cox Other [facility] Other 08-07-2022 17:30-0400 Systolic blood pressure 142 mm[Hg] Asif Cox Other [facility] Other 07-24-2022 10:04-0400 Diastolic blood pressure 76 mm[Hg] SENIOR STOCK PLAN ADMINISTRATOR-C Alyssa Arreola Work Phone: [facility] 07-24-2022 10:04-0400 Heart rate 74 /min SENIOR STOCK PLAN ADMINISTRATOR-C Alyssa Arreola Work Phone: [facility] 07-24-2022 10:04-0400 Respiratory rate 18 /min SENIOR STOCK PLAN ADMINISTRATOR-C Alyssa Maxwell Work Phone: [facility] 07-24-2022 10:04-0400 SaO2% (BldA) [Mass fraction] 96 % SENIOR STOCK PLAN ADMINISTRATOR-C Alyssa Arreola Work Phone: [facility] 07-24-2022 10:04-0400 Systolic blood pressure 117 mm[Hg] SENIOR STOCK PLAN ADMINISTRATOR-C Alyssa Arreola Work Phone: [facility] 07-24-2022 09:23-0400 Inhaled oxygen flow rate 3 L/min SENIOR STOCK PLAN ADMINISTRATOR-C Alyssa Arreola Work Phone: [facility] 07-24-2022 08:46-0400 Body height 172.72 cm SENIOR STOCK PLAN ADMINISTRATOR-C Alyssa Arreola Work Phone: [facility] 07-24-2022 08:46-0400 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 Alyssa 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 Work Phone: [facility] 07-08-2022 15:45-0400 Body height 168.91 cm Asif Garciaky Other [facility] Other 07-08-2022 15:45-0400 Body mass index (BMI) [Ratio] 56.59 kg/m2 Asif Garcaiky Other [facility] Other 07-08-2022 15:45-0400 Body weight 161.48 kg Asifjohn Cox Other [facility] Other 07-08-2022 15:45-0400 Diastolic blood pressure 80 mm[Hg] Asifjohn Cox Other [facility] Other 07-08-2022 15:45-0400 SaO2% (BldA) [Mass fraction] 97 % Asif Jackie Other [facility] Other 07-08-2022 15:45-0400 Systolic blood pressure 120 mm[Hg] Asif Cox Other [facility] Other 05-17-2022 10:15-0500 Body height 168.91 cm Asif Cox Other [facility] Other 05-17-2022 10:15-0500 Body mass index (BMI) [Ratio] 55.93 kg/m2 Asif Cox Other [facility] Other 05-17-2022 10:15-0500 Body weight 159.58 kg Asif Cox Other [facility] Other 05-17-2022 10:15-0500 Diastolic blood pressure 86 mm[Hg] Asif Cox Other [facility] Other 05-17-2022 10:15-0500 SaO2% (BldA) [Mass fraction] 96 % Asif Cox Other [facility] Other 05-17-2022 10:15-0500 Systolic blood pressure 132 mm[Hg] Asif Cox Other [facility] Other 04-05-2022 13:15-0500 Body height 168.91 cm Asif Cox Other [facility] Other 04-05-2022 13:15-0500 Body mass index (BMI) [Ratio] 55.64 kg/m2 Asif Cox Other [facility] Other 04-05-2022 13:15-0500 Body weight 158.76 kg Asif Cox Other [facility] Other 04-05-2022 13:15-0500 Diastolic blood pressure 80 mm[Hg] Asif Jackie Other [facility] Other 04-05-2022 13:15-0500 SaO2% (BldA) [Mass fraction] 98 % Asif Cox Other [facility] Other 04-05-2022 13:15-0500 Systolic blood pressure 124 mm[Hg] Asif Jackie Other [facility] Other 02-07-2022 14:45-0400 Body height 168.91 cm Asif Cox Other [facility] Other 02-07-2022 14:45-0400 Body mass index (BMI) [Ratio] 55.48 kg/m2 sAif Cox Other [facility] Other 02-07-2022 14:45-0400 Body weight 158.31 kg Asif Cox Other [facility] Other 02-07-2022 14:45-0400 Diastolic blood pressure 80 mm[Hg] Asif Jackie Other [facility] Other 02-07-2022 14:45-0400 SaO2% (BldA) [Mass fraction] 94 % Asif Cox Other [facility] Other 02-07-2022 14:45-0400 Systolic blood pressure 126 mm[Hg] Asif Jcakie Other [facility] Other 01-18-2022 13:15-0400 Body height 168.91 cm Asif Cox Other [facility] Other 01-18-2022 13:15-0400 Body mass index (BMI) [Ratio] 54.84 kg/m2 Asifjohn Cox Other [facility] Other 01-18-2022 13:15-0400 Body weight 156.49 kg Asif Jackie Other [facility] Other 01-18-2022 13:15-0400 Diastolic blood pressure 98 mm[Hg] Asif Jackie Other [facility] Other 01-18-2022 13:15-0400 SaO2% (BldA) [Mass fraction] 97 % Asif Jcakie Other [facility] Other 01-18-2022 13:15-0400 Systolic blood pressure 132 mm[Hg] Asif Jackie Other [facility] Other 12-17-2021 11:45-0400 Body height 168.91 cm Asif Cox Other [facility] Other 12-17-2021 11:45-0400 Body mass index (BMI) [Ratio] 54.84 kg/m2 Asif Cox Other [facility] Other 12-17-2021 11:45-0400 Body weight 156.49 kg Asif Jackie Other [facility] Other 12-17-2021 11:45-0400 Diastolic blood pressure 80 mm[Hg] Asif Jackie Other [facility] Other 12-17-2021 11:45-0400 SaO2% (BldA) [Mass fraction] 97 % Asif Jackie Other [facility] Other 12-17-2021 11:45-0400 Systolic blood pressure 110 mm[Hg] Asif Jackie Other [facility] Other 10-15-2021 10:30-0400 Body height 168.91 cm Asif Cox Other [facility] Other 10-15-2021 10:30-0400 Body mass index (BMI) [Ratio] 54.3 kg/m2 Asif Cox Other [facility] Other 10-15-2021 10:30-0400 Body weight 154.95 kg Asif Cox Other [facility] Other 10-15-2021 10:30-0400 Diastolic blood pressure 70 mm[Hg] Asif Cox Other [facility] Other 10-15-2021 10:30-0400 SaO2% (BldA) [Mass fraction] 98 % Asif Cox Other [facility] Other 10-15-2021 10:30-0400 Systolic blood pressure 110 mm[Hg] Asif Cox Other [facility] Other 09-13-2021 10:45-0400 Body height 168.91 cm Destini Kilgore Other [facility] Other 09-13-2021 10:45-0400 Body mass index (BMI) [Ratio] 54.21 kg/m2 Destini Kilgore Other [facility] Other 09-13-2021 10:45-0400 Body weight 154.68 kg Destini Kilgore Other [facility] Other 09-13-2021 10:45-0400 Diastolic blood pressure 74 mm[Hg] Destini Kilgore Other [facility] Other 09-13-2021 10:45-0400 Systolic blood pressure 124 mm[Hg] Destini Kilgore Other [facility] Other 08-02-2021 15:30-0400 Body height 168.91 cm Asifjohn Cox Other [facility] Other 08-02-2021 15:30-0400 Body mass index (BMI) [Ratio] 52.71 kg/m2 Asifjohn Cox Other [facility] Other 08-02-2021 15:30-0400 Body weight 150.41 kg Asifjohn Cox Other [facility] Other 08-02-2021 15:30-0400 Diastolic blood pressure 82 mm[Hg] Asif Cox Other [facility] Other 08-02-2021 15:30-0400 SaO2% (BldA) [Mass fraction] 97 % Asifjohn Cox Other [facility] Other 08-02-2021 15:30-0400 Systolic blood pressure 134 mm[Hg] Asif Cox Other [facility] Other 07-09-2021 16:00-0400 Body height 168.91 cm Asif Cox Other [facility] Other 07-09-2021 16:00-0400 Diastolic blood pressure 80 mm[Hg] Asif Cox Other [facility] Other 07-09-2021 16:00-0400 SaO2% (BldA) [Mass fraction] 99 % Asif Cox Other [facility] Other 07-09-2021 16:00-0400 Systolic blood pressure 130 mm[Hg] Asif Cox Other [facility] Other 07-04-2021 15:30-0500 Body height 168.91 cm Mellissa Strange Other [facility] Other 07-04-2021 15:30-0500 Body mass index (BMI) [Ratio] 52.78 kg/m2 Mellissa Strange Other [facility] Other 07-04-2021 15:30-0500 Body weight 150.6 kg Mellissa Strange Other [facility] Other 07-04-2021 15:30-0500 Diastolic blood pressure 96 mm[Hg] Mellissa Strange Other [facility] Other 07-04-2021 15:30-0500 Systolic blood pressure 137 mm[Hg] Mellissa Strange Other [facility] Other 06-07-2021 11:15-0500 Body height 168.91 cm Destini Kilgore Other [facility] Other 06-07-2021 11:15-0500 Body mass index (BMI) [Ratio] 52.48 kg/m2 Destini Kilgore Other [facility] Other 06-07-2021 11:15-0500 Body weight 149.73 kg Destini Kilgore Other [facility] Other 06-07-2021 11:15-0500 Respiratory rate 18 /min Destini Kilgore Other [facility] Other 04-30-2021 15:00-0500 Body height 168.91 cm Asif Cox Other [facility] Other 04-30-2021 15:00-0500 Body mass index (BMI) [Ratio] 51.98 kg/m2 Asif Cox Other [facility] Other 04-30-2021 15:00-0500 Body weight 148.33 kg Asif Cox Other [facility] Other 04-30-2021 15:00-0500 Diastolic blood pressure 74 mm[Hg] Asif Jackie Other [facility] Other 04-30-2021 15:00-0500 Systolic blood pressure 116 mm[Hg] Asif Jackie Other [facility] Other 04-05-2021 17:00-0500 Body height 168.91 cm Asif Cox Other [facility] Other 04-05-2021 17:00-0500 Body mass index (BMI) [Ratio] 50.93 kg/m2 Asif Cox Other [facility] Other 04-05-2021 17:00-0500 Body weight 145.33 kg Asif Cox Other [facility] Other 03-19-2021 12:15-0500 Body height 168.91 cm Asif Cox Other [facility] Other 03-19-2021 12:15-0500 Body mass index (BMI) [Ratio] 49.92 kg/m2 Asif Cox Other [facility] Other 03-19-2021 12:15-0500 Body weight 142.43 kg Asif Cox Other [facility] Other 03-19-2021 12:15-0500 Diastolic blood pressure 80 mm[Hg] Asif Cox Other [facility] Other 03-19-2021 12:15-0500 Systolic blood pressure 120 mm[Hg] Asif Cox Other [facility] Other 02-26-2021 14:30-0400 Body height 168.91 cm Asif Cox Other [facility] Other 02-26-2021 14:30-0400 Body mass index (BMI) [Ratio] 50.84 kg/m2 Asif Cox Other [facility] Other 02-26-2021 14:30-0400 Body weight 145.06 kg Asif Cox Other [facility] Other 02-26-2021 14:30-0400 Diastolic blood pressure 70 mm[Hg] Asif Jackie Other [facility] Other 02-26-2021 14:30-0400 SaO2% (BldA) [Mass fraction] 98 % Asif Cox Other [facility] Other 02-26-2021 14:30-0400 Systolic blood pressure 118 mm[Hg] Asif Cox Other [facility] Other Encounters Encounter Date Encounter Type Care Provider Facility Start: 11-02-2024 ambulatory Alyssa Arreola Facil ity:[facility] Start: 09-29-2024 End: 09-29-2024 ambulatory Alyssa Arreola SENIOR STOCK PLAN ADMINISTRATOR-C Work Phone: [facility] Work Phone: Start: 09-29-2024 End: 09-29-2024 Patient encounter procedure Alyssa Arreola SENIOR STOCK PLAN ADMINISTRATOR-C Work Phone: [facility] Work Phone: Start: 09-17-2024 End: 09-17-2024 ambulatory PA-C KAYY MIRAMONTES [facility] Start: 09-16-2024 Registered Recurring Alyssa solitario SENIOR STOCK PLAN ADMINISTRATOR-C Work Phone: [facility] Start: 09-15-2024 End: 09-15-2024 Office outpatient visit 25 minutes Cheyanne Schilling SENIOR STOCK PLAN ADMINISTRATOR Work Phone: [facility] Comment on above: Migraine without aur a and without status migrainosus, not intractable (CMS/HCC) (Primary Dx); CARLOS (obstructive sleep apnea); Lumbar radiculopathy; Degeneration of intervertebral disc of lumbar region, unspecified whether pain present; Neck pain; Polypharmacy; Seizure (CMS/HCC) Start: 09-15-2024 End: 09-15-2024 ambulatory CHEYANNE SCHILLING Not Available Start: 08-12-2024 Non-patient / Non-visit Alyssa Arreola SENIOR STOCK PLAN ADMINISTRATOR-C Work Phone: [facility] Work Phone: Start: 08-04-2024 Non-patient / Non-visit Alyssa Arreola SENIOR STOCK PLAN ADMINISTRATOR-C Work Phone: [facility] Work Phone: Start: 07-08-2024 End: 07-08-2024 ambulatory Alyssa Arreola SENIOR STOCK PLAN ADMINISTRATOR-C Work Phone: [facility] Work Phone: Start: 07-08-2024 End: 07-08-2024 Patient encounter procedure Alyssa Arreola SENIOR STOCK PLAN ADMINISTRATOR-C Work Phone: [facility] Work Phone: Start: 06-16-2024 End: 06-16-2024 ambulatory Alyssa Mortensenmer SENIOR STOCK PLAN ADMINISTRATOR-C Work Phone: [facility] Work Phone: Start: 06-16-2024 End: 06-16-2024 Patient encounter procedure Alyssa Arreola SENIOR STOCK PLAN ADMINISTRATOR-C Work Phone: [facility] Work Phone: Start: 06-03-2024 End: 06-03-2024 Bamboo flowsheet Cheyanne Schilling SENIOR STOCK PLAN ADMINISTRATOR Work Phone: [facility] Start: 06-03-2024 End: 06-03-2024 Bamboo flowsheet Cheyanne Schilling SENIOR STOCK PLAN ADMINISTRATOR Work Phone: [facility] Start: 06-03-2024 End: 06-03-2024 Office outpatient visit 15 minutes Cheyanne Shakir SENIOR STOCK PLAN ADMINISTRATOR Work Phone: [facility] Comment on above: Migraine without aur a and without status migrainosus, not intractable (CMS/HCC) (Primary Dx); CARLOS (obstructive sleep apnea); Lumbar radiculopathy; Degeneration of intervertebral disc of lumbar region, unspecified whether pain present; Neck pain; Polypharmacy; Seizure (CMS/HCC) Start: 06-03-2024 End: 06-03-2024 ambulatory CHEYANNE SHAKIR Not Available Start: 05-26-2024 End: 05-26-2024 Clinisync Result Encounter Cheyanne Shakir SENIOR STOCK PLAN ADMINISTRATOR Work Phone: [facility] External Department Unsolicited Start: 05-26-2024 End: 05-26-2024 Clinisync Result Encounter Cheyanne Schilling SENIOR STOCK PLAN ADMINISTRATOR Work Phone: [facility] External Department Unsolicited Start: 05-05-2024 End: 05-05-2024 Bamboo flowsheet Cheyanne Schilling SENIOR STOCK PLAN ADMINISTRATOR Work Phone: [facility] Start: 05-05-2024 End: 05-05-2024 Bamboo flowsheet Cheyanne Schilling SENIOR STOCK PLAN ADMINISTRATOR Work Phone: [facility] Start: 05-05-2024 End: 05-05-2024 Office outpatient visit 25 minutes Cheyanne Schilling SENIOR STOCK PLAN ADMINISTRATOR Work Phone: [facility] Comment on above: Migraine without aur a and without status migrainosus, not intractable (CMS/HCC) (Primary Dx); CARLOS (obstructive sleep apnea); Lumbar radiculopathy; Degeneration of intervertebral disc of lumbar region, unspecified whether pain present; Paresthesias; Polypharmacy; Seizure (CMS/HCC) Start: 05-05-2024 End: 05-05-2024 ambulatory CHEYANNE SCHILLING Not Available Start: 04-27-2024 Registered Recurring Alyssa solitario SENIOR STOCK PLAN ADMINISTRATOR-C Work Phone: [facility] Start: 03-10-2024 End: 03-10-2024 Bamboo flowsheet Tank Anisha DO Work Phone: [facility] Start: 03-10-2024 End: 03-10-2024 Bamboo flowsheet Tank Anisha DO Work Phone: [facility] Start: 03-10-2024 End: 03-10-2024 Office outpatient visit 25 minutes Tank Anisha DO Work Phone: [facility] Comment on above: ACRLOS (obstructive sle ep apnea) (Primary Dx); Hypoxia; Hypersomnia; Obesity due to excess calories, unspecified class, unspecified whether serious comorbidity present; Snoring Start: 03-10-2024 End: 03-10-2024 ambulatory TANK ANISHA Not Available Start: 03-04-2024 End: 03-04-2024 Office outpatient visit 15 minutes Cheyanne Schilling SENIOR STOCK PLAN ADMINISTRATOR Work Phone: [facility] Comment on above: Migraine without aur a and without status migrainosus, not intractable (CMS/HCC) (Primary Dx); CARLOS (obstructive sleep apnea); Lumbar radiculopathy; Paresthesias; Polypharmacy; Seizure (CMS/HCC) Start: 03-04-2024 End: 03-04-2024 ambulatory CHEYANNE SCHILLING Not Available Start: 03-04-2024 End: 03-04-2024 Bamboo flowsheet Cheyanne Schilling SENIOR STOCK PLAN ADMINISTRATOR Work Phone: [facility] Start: 03-04-2024 End: 03-04-2024 Bamboo flowsheet Cheyanne Schilling SENIOR STOCK PLAN ADMINISTRATOR Work Phone: [facility] Start: 02-25-2024 End: 02-25-2024 Patient encounter procedure SENIOR STOCK PLAN ADMINISTRATOR-C Alyssa Arreola Work Phone: [facility] [place] Work Phone: Start: 02-25-2024 End: 02-25-2024 ambulatory SENIOR STOCK PLAN ADMINISTRATOR-C Alyssa Arreola Work Phone: [facility] Work Phone: Start: 02-19-2024 End: 02-19-2024 Bamboo flowsheet Joel Jerez DO Work Phone: [facility] Start: 02-19-2024 End: 02-19-2024 Bamboo flowsheet Joel Jerez DO Work Phone: [facility] Start: 02-19-2024 End: 02-19-2024 Patient encounter procedure Joel Jerez DO Work Phone: [facility] Comment on above: Paresthesia (Primary Dx) Start: 02-19-2024 End: 02-19-2024 ambulatory JOEL JEREZ Not Available Start: 02-16-2024 Registered Recurring SENIOR STOCK PLAN ADMINISTRATOR-C Alanis Azar Work Phone: [facility] Start: 02-12-2024 End: 02-12-2024 Lab Drop off KAYY MIRAMONTES [facility] Start: 02-12-2024 End: 02-12-2024 ambulatory PA-C KAYY MIRAMONTES [facility] Start: 02-12-2024 End: 02-12-2024 Patient encounter procedure KAYY MIRAMONTES [facility] Start: 02-11-2024 End: 02-11-2024 Bamboo flowsheet Cheyanne Schilling SENIOR STOCK PLAN ADMINISTRATOR Work Phone: [facility] Start: 02-11-2024 End: 02-11-2024 Bamboo flowsheet Cheyanne Schilling SENIOR STOCK PLAN ADMINISTRATOR Work Phone: [facility] Start: 02-11-2024 End: 02-17-2024 Telephone encounter Cheyanne Schilling SENIOR STOCK PLAN ADMINISTRATOR Work Phone: [facility] Start: 02-11-2024 End: 02-11-2024 Office outpatient visit 25 minutes Cheyanne Schilling SENIOR STOCK PLAN ADMINISTRATOR Work Phone: [facility] Comment on above: Migraine without aur a and without status migrainosus, not intractable (CMS/HCC) (Primary Dx); CARLOS (obstructive sleep apnea); Carpal tunnel syndrome, bilateral; Polypharmacy; Seizure (CMS/HCC) Start: 02-11-2024 End: 02-11-2024 ambulatory CHEYANNE SCHILLING Not Available Start: 01-15-2024 End: 01-15-2024 ambulatory SENIOR STOCK PLAN ADMINISTRATOR-C Alyssa Arreola Work Phone: [facility] Work Phone: Start: 01-15-2024 End: 01-15-2024 Patient encounter procedure SENIOR STOCK PLAN ADMINISTRATOR-C Alyssa Arreola Work Phone: [facility] Work Phone: Start: 01-06-2024 Registered Recurring SENIOR STOCK PLAN ADMINISTRATOR-C Alanis la Maxwell Work Phone: [facility] Start: 01-02-2024 End: 01-02-2024 ambulatory SENIOR STOCK PLAN ADMINISTRATOR-C Alyssa Lesly Maxwell Work Phone: [facility] Work Phone: Start: 01-02-2024 End: 01-02-2024 Patient encounter procedure SENIOR STOCK PLAN ADMINISTRATOR-C Alyssa Maxwell Work Phone: [facility] [place] Work Phone: Start: 12-16-2023 Registered Recurring SENIOR STOCK PLAN ADMINISTRATOR-C Alanis la Maxwell Work Phone: [facility] Start: 12-11-2023 End: 12-11-2023 ambulatory SENIOR STOCK PLAN ADMINISTRATOR-C Alyssa Lesly Maxwell Work Phone: [facility] Work Phone: Start: 12-11-2023 End: 12-11-2023 Patient encounter procedure SENIOR STOCK PLAN ADMINISTRATOR-C Alyssa Maxwell Work Phone: [facility] Work Phone: Start: 10-15-2023 Registered Recurring SENIOR STOCK PLAN ADMINISTRATOR-C Alanis la Maxwell Work Phone: [facility] Start: 09-24-2023 End: 09-24-2023 ambulatory CHEYANNE SCHILLING Not Available Start: 09-04-2023 End: 09-04-2023 ambulatory SENIOR STOCK PLAN ADMINISTRATOR-C Alyssa Lesly Maxwell Work Phone: [facility] Work Phone: Start: 09-04-2023 End: 09-04-2023 Patient encounter procedure SENIOR STOCK PLAN ADMINISTRATOR-C Alyssa Maxwell Work Phone: [facility] Work Phone: Start: 07-29-2023 End: 07-29-2023 ambulatory PA-C KAYY MIRAMONTES Facility:[facility] Start: 07-29-2023 End: 07-29-2023 Patient encounter procedure KAYY MIRAMONTES [facility] [place] Start: 07-16-2023 End: 07-16-2023 ambulatory SENIOR STOCK PLAN ADMINISTRATOR-C Alyssa Arreola Work Phone: [facility] Work Phone: Start: 07-16-2023 End: 07-16-2023 Patient encounter procedure SENIOR STOCK PLAN ADMINISTRATOR-C Alyssa Arreola Work Phone: [facility] Work Phone: Start: 07-15-2023 End: 07-15-2023 ambulatory Hermilo GASTON [facility] Start: 07-15-2023 End: 07-15-2023 Patient encounter procedure Hermilo GASTON [facility] Start: 07-08-2023 End: 07-08-2023 ambulatory PA-C KAYY MIRAMONTES [facility] Start: 07-08-2023 End: 07-08-2023 Lab Drop off KAYY MIRAMONTES [facility] Start: 07-08-2023 End: 07-08-2023 ambulatory Hermilo GASTON Facility:[facility] Start: 07-08-2023 End: 07-08-2023 Patient encounter procedure Hermilo Aimee ALEK [facility] Start: 06-24-2023 ambulatory PA-C KAYY MIRAMONTES Facility:[facility] [place] Start: 06-24-2023 Registered Recurring SENIOR STOCK PLAN ADMINISTRATOR-C Alanis Azar Work Phone: [facility] Start: 06-05-2023 End: 06-05-2023 ambulatory Asif Cox Other [employer] Other Start: 06-05-2023 Telephone encounter Asif Jackie [facility] Start: 06-04-2023 (PROC) PROCEDURE Asif Jackie [facility] Start: 06-04-2023 End: 06-04-2023 Admission to same day surgery center SENIOR STOCK PLAN ADMINISTRATOR-C Alyssa Maxwell Work Phone: [facility] Work Phone: Start: 06-04-2023 End: 06-04-2023 ambulatory SENIOR STOCK PLAN ADMINISTRATOR-C Alyssa Lesly Maxwell Work Phone: [facility] Work Phone: Start: 05-28-2023 End: 05-28-2023 ambulatory PA-C KAYY MIRAMONTES Facility:[facility] Start: 05-28-2023 End: 05-28-2023 Patient encounter procedure KAYY MIRAMONTES [facility] Start: 05-19-2023 End: 05-19-2023 Patient encounter procedure SENIOR STOCK PLAN ADMINISTRATOR-C Alyssapollo Mortensenmer Work Phone: [facility] Work Phone: Start: 05-19-2023 End: 05-19-2023 ambulatory SENIOR STOCK PLAN ADMINISTRATOR-C Alyssa Lesly Maxwell Work Phone: [facility] Work Phone: Start: 05-19-2023 Office outpatient vi sit 25 minutes Asif Cox [facility] Start: 05-19-2023 End: 05-19-2023 Patient encounter procedure SENIOR STOCK PLAN ADMINISTRATOR-C Alyssa Maxwell Work Phone: [facility]- Start: 04-16-2023 End: 04-16-2023 ambulatory Asif [facility] Other [employer] Other Start: 04-16-2023 Telephone encounter Asif [facility] Start: 04-09-2023 Office outpatient vi sit 25 minutes Destini Kilgore [facility] Start: 04-09-2023 End: 04-09-2023 ambulatory SENIOR STOCK PLAN ADMINISTRATOR-C Alyssa Lesly Maxwell Work Phone: [facility] Work Phone: Start: 04-09-2023 End: 04-09-2023 Patient encounter procedure SENIOR STOCK PLAN ADMINISTRATOR-C Alyssa Maxwell Work Phone: [facility] [place] Work Phone: Start: 04-09-2023 End: 04-09-2023 Patient encounter procedure SENIOR STOCK PLAN ADMINISTRATOR-C Alyssa Maxwell Work Phone: [facility] Work Phone: Start: 03-06-2023 Registered Recurring SENIOR STOCK PLAN ADMINISTRATOR-C Alanis la Maxwell Work Phone: [facility] Start: 02-25-2023 Registered Recurring SENIOR STOCK PLAN ADMINISTRATOR-C Alanis la Maxwell Work Phone: [facility] Start: 01-23-2023 End: 01-23-2023 ambulatory Asifjohn [facility] Other [employer] Other Start: 01-23-2023 Patient encounter procedure Asifjohn [facility] Start: 01-09-2023 End: 01-09-2023 ambulatory Destini Kilgore Other [employer] Other Start: 01-09-2023 Office outpatient vi sit 25 minutes Destini Kilgore [facility] Start: 11-07-2022 End: 11-07-2022 ambulatory Asif Jackie Other [employer] Other Start: 11-07-2022 Office outpatient vi sit 25 minutes Asif Jackie [facility] Start: 10-31-2022 End: 10-31-2022 ambulatory Asif Jackie Other [employer] Other Start: 10-31-2022 Office outpatient vi sit 25 minutes Asif Jackie [facility] Start: 08-26-2022 End: 08-27-[address] MARTI JEREZ . Facility:[facility] Start: 08-07-2022 End: 08-07-2022 ambulatory Asif [facility] Other [employer] Other Start: 08-07-2022 Office outpatient vi sit 15 minutes Asif [facility] Start: 08-05-2022 End: 08-05-[address] MARTI JEREZ . Facility:[facility] Start: 07-24-2022 (PROC) PROCEDURE Asif [facility] Start: 07-24-2022 End: 07-24-2022 Admission to same day surgery center SENIOR STOCK PLAN ADMINISTRATOR-C Alyssapollo Arreola Work Phone: [facility] Work Phone: Start: 07-24-2022 End: 07-24-2022 ambulatory SENIOR STOCK PLAN ADMINISTRATOR-C Alyssa Lesly Maxwell Work Phone: [facility] Work Phone: Start: 07-14-2022 End: 07-14-2022 ambulatory FRANNIE DIAB . Facility:[facility] Start: 07-08-2022 Office outpatient vi sit 25 minutes Asif [facility] Start: 07-08-2022 End: 07-08-2022 ambulatory SENIOR STOCK PLAN ADMINISTRATOR-C Alyssa Lesly Maxwell Work Phone: [facility] Work Phone: Start: 07-08-2022 End: 07-08-2022 Patient encounter procedure SENIOR STOCK PLAN ADMINISTRATOR-C Alyssa Maxwell Work Phone: [facility] [place] Work Phone: Start: 05-20-2022 End: 05-20-[address] MARTI JEREZ . Facility:[facility] Start: 05-17-2022 End: 05-17-2022 ambulatory Asif [facility] Other [facility] Other Start: 05-17-2022 Office outpatient vi sit 25 minutes Asif Jackie [facility] Start: 05-01-2022 End: 05-25-2022 ambulatory ASIF JACKIE Facility:[facility] Start: 04-05-2022 Office outpatient vi sit 25 minutes Asif Jackie [facility] Start: 04-05-2022 End: 04-05-2022 ambulatory SENIOR STOCK PLAN ADMINISTRATOR-C Alyssa Grace Maxwell Work Phone: [employer] Other Start: 04-05-2022 End: 04-05-2022 Patient encounter procedure SENIOR STOCK PLAN ADMINISTRATOR-C Alyssa Arreola Work Phone: [facility] Start: 03-18-2022 End: 03-19-2022 ambulatory ALYSSAPOLLO MORTENSENMER Facility:[facility] Start: 02-07-2022 End: 02-07-2022 ambulatory Asif Jackie Other [employer] Other Start: 02-07-2022 Patient encounter procedure Asif Jackie [facility] Start: 01-18-2022 End: 01-18-2022 ambulatory Asifjohn Cox Other [employer] Other Start: 01-18-2022 Office outpatient vi sit 25 minutes Asif Jackie [facility] [place] Start: 12-24-2021 End: 12-24-2021 Patient encounter procedure SENIOR STOCK PLAN ADMINISTRATOR-C Alyssa Arreola Work Phone: [facility] Start: 12-17-2021 End: 12-17-2021 ambulatory Asif Jackie Other [employer] Other Start: 12-17-2021 Office outpatient vi sit 25 minutes Asif Jackie [facility] Start: 11-26-2021 ambulatory ALYSSAPOLLO MORTENSENMER Facility: [facility] Start: 11-22-2021 End: 11-23-[address] MARTI JEREZ . Facility:[facility] Start: 11-21-2021 End: 11-22-2021 ambulatory SUSIE ESTRADA Facility:[facility] Start: 10-23-2021 End: 10-23-[address] NUBIA WHYTE . Facility:[facility] Start: 10-16-2021 End: 11-23-2021 ambulatory ALYSSA ARREOLA Facility:[facility] Start: 10-15-2021 End: 10-15-2021 ambulatory Asif Jackie Other [employer] Other Start: 10-15-2021 Office outpatient vi sit 25 minutes Asif Garciaky [facility] Start: 10-15-2021 End: 10-15-2021 Patient encounter procedure SENIOR STOCK PLAN ADMINISTRATOR-C Alyssa Arreola Work Phone: [facility] Start: 10-12-[address] MARTI JEREZ . Facili ty:[facility] Start: 10-09-2021 End: 10-09-2021 Lab Drop off Virgilio Rhoades [facility] Start: 10-09-2021 End: 10-09-2021 Patient encounter procedure Cipriano Romero Jr. [facility] [place] Start: 09-19-2021 End: 09-19-2021 ambulatory Destini Kilgore Other [employer] Other Start: 09-19-2021 Telephone encounter Destini Kilgore [facility] Start: 09-13-2021 End: 09-13-2021 ambulatory Destini Kilgore Other [employer] Other Start: 09-13-2021 Office outpatient vi sit 15 minutes Destini Kilgore [facility] Start: 09-06-2021 End: 09-06-2021 ambulatory ALYSSA ARREOLA Facility:[facility] Start: 09-04-2021 End: 09-05-2021 ambulatory ALYSSA ARREOLA Facility:[facility] Start: 08-15-2021 (Procedure) Short Asif [facility] Start: 08-15-2021 End: 08-15-2021 ambulatory Asif Cox Other [employer] Other Start: 08-09-2021 End: 08-09-2021 Lab Drop off KAYY MIRAMONTES [facility] Start: 08-09-2021 End: 08-09-2021 Patient encounter procedure KAYY MIRAMONTES [facility] Start: 08-02-2021 End: 08-02-2021 ambulatory Asif Cox Other [employer] Other Start: 08-02-2021 Office outpatient vi sit 25 minutes Asif Jackie [facility] Start: 07-09-2021 End: 07-09-2021 ambulatory Mellissa Strange Other [employer] Other Start: 07-09-2021 Office outpatient vi sit 25 minutes Asif Jackie [facility] Start: 07-09-2021 Telephone encounter Mellissa Strange [facility] Start: 07-04-2021 End: 07-04-2021 ambulatory Mellissa Strange Other [employer] Other Start: 07-04-2021 Office outpatient ne w 30 minutes Mellissa Strange [facility] Start: 06-07-2021 End: 06-07-2021 ambulatory Destini Kilgore Other [employer] Other Start: 06-07-2021 Office outpatient vi sit 25 minutes Destini Kilgore [facility] Start: 05-08-2021 (Procedure) Short Asif Cox [facility] Start: 05-08-2021 End: 05-08-2021 ambulatory Asif Cox Other [employer] Other Start: 04-30-2021 End: 04-30-2021 ambulatory Asif Cox Other [employer] Other Start: 04-30-2021 Office outpatient vi sit 25 minutes Asifjohn Cox [facility] Start: 04-26-2021 End: 04-27-2021 ambulatory E[facility]AB [facility] Facility:[facility] Start: 04-19-2021 (Procedure) Short Asif Cox [facility] Start: 04-19-2021 End: 04-19-2021 ambulatory Asifjohn Cox Other [employer] Other Start: 04-05-2021 End: 04-05-2021 ambulatory Asif Cox Other [employer] Other Start: 04-05-2021 Office outpatient vi sit 25 minutes Asif Jackie [facility] Start: 03-29-2021 (Procedure) Short Asif Cox [facility] Start: 03-29-2021 End: 03-29-2021 ambulatory Asif Cox Other [employer] Other Start: 03-19-2021 End: 03-19-2021 ambulatory Asif Cox Other [employer] Other Start: 03-19-2021 Office outpatient vi sit 25 minutes Asif Jackie [facility] Start: 03-07-2021 (Procedure) Short Asif Cox [facility] Start: 03-07-2021 End: 03-07-2021 ambulatory Asif Cox Other [employer] Other Start: 02-26-2021 End: 02-26-2021 ambulatory Asifjohn Cox Other [employer] Other Start: 02-26-2021 Office outpatient vi sit 25 minutes Asif Jackie [facility] Procedures Date Procedure Procedure Detail Performing Clinician Start: 05-26-2024 Mri spinal canal cer vical w/o contrast matrl Cheyanne Schilling SENIOR STOCK PLAN ADMINISTRATOR Work Phone: Start: 02-25-2024 MR lumbar spine wo con SENIOR STOCK PLAN ADMINISTRATOR-C Alyssa Arreola Work Phone: Start: 02-19-2024 End: 02-19-2024 Needle emg ea extremty w/paraspinl area complete Cheyanne Schilling SENIOR STOCK PLAN ADMINISTRATOR Work Phone: Start: 12-11-2023 X-ray of both knees SENIOR STOCK PLAN ADMINISTRATOR- C Alyssa Arreola Work Phone: Start: 07-15-2023 Injection of botulin um toxin type A into detrusor muscle of urinary bladder KAYY MIRAMONTES Start: 06-04-2023 DH Nerve Radio Frequ ency (Bilateral) SENIOR STOCK PLAN ADMINISTRATOR-C Alyssa Arreola Work Phone: Start: 05-19-2023 X-ray of lumbar spin e, four views SENIOR STOCK PLAN ADMINISTRATOR-C Alyssa Arreola Work Phone: Start: 04-09-2023 Plain X-ray of left hip SENIOR STOCK PLAN ADMINISTRATOR-C Alyssa Arreola Work Phone: Start: 08-05-2022 Microscopic observat ion [Identifier] in Cervix by Cyto stain Cheyanne Schilling SENIOR STOCK PLAN ADMINISTRATOR Work Phone: Start: 07-24-2022 DH Nerve Radio Frequ ency (Bilateral) SENIOR STOCK PLAN ADMINISTRATOR-C Alyssa Arreola Work Phone: Start: 07-08-2022 Plain X-ray of right shoulder SENIOR STOCK PLAN ADMINISTRATOR-C Alyssa Arreola Work Phone: Start: 04-05-2022 X-ray of cervical spine SENIOR STOCK PLAN ADMINISTRATOR-C Alyssa Arreola Work Phone: Start: 12-24-2021 MR thoracic spine wo con SENIOR STOCK PLAN ADMINISTRATOR-Jess Arreola Work Phone: Start: 10-15-2021 Radiography of thora cic spine SENIOR STOCK PLAN ADMINISTRATOR-C Alyssa Arreola Work Phone: Start: 02-20-2021 Cystoscopy [...] Screening for malign ant neoplasm of cervix [facility] Start: 03-16-2025 End: 03-16-2025 Patient encounter procedure [facility] [place] [address] Start: 01-05-2025 End: 01-05-2025 Patient encounter procedure 01/05/2025 11:00 AM EDT Office Visit [facility] [address] [place] [id number] Cheyanne Schilling NP [address] [place] [id number] [facility] Start: 12-27-2024 Influenza vaccination Influenz a Vaccine (Season Ended) [facility] Start: 09-15-2024 End: 09-15-2024 Patient encounter procedure 09/15/2024 9:40 AM EDT Office Visit [facility] [address] [place] [id number] Cheyanne Schilling NP [address] [place] [id number] [facility] Start: 06-03-2024 End: 06-03-2024 Patient encounter procedure [facility] Comment on above: Arrived Start: 05-05-2024 End: 05-05-2025 MR Cervical spine WO contrast MR cervical spine wo contrast Imaging Routine Paresthesias Expected: 05/05/2024 (Approximate), Expires: 05/05/2025 [facility] Work Phone: Comment on above: Expected: 05/05/2024 (Approximate), Expires: 05/05/2025 Start: 05-05-2024 End: 05-05-2024 Patient encounter procedure [facility] [place] [address] Comment on above: Arrived Start: 03-10-2024 End: 03-10-2024 Patient encounter procedure [facility] [place] [address] Start: 03-04-2024 End: 03-04-2024 Patient encounter procedure 03/04/2024 3:40 PM EST Office Visit [facility] [address] [place] [address] Cheyanne Schilling NP [address] [place] [address] Arrived [facility] [place] [address] Comment on above: Arrived Start: 02-19-2024 End: 02-19-2024 Patient encounter procedure [facility] Comment on above: Arrived Start: 02-11-2024 End: 02-10-2025 EMG 2 Extremities EMG 2 Extremities Neurology Routine Carpal tunnel syndrome, bilateral Expected: 02/11/2024 (Approximate), Expires: 02/10/2025 [facility] Work Phone: Comment on above: Expected: 02/11/2024 (Approximate), Expires: 02/10/2025 Start: 02-11-2024 End: 02-11-2024 Patient encounter procedure 02/11/2024 10:40 AM EDT Office Visit [facility] [address] [place] [address] Cheyanne Schilling NP [address] [place] [address] Migraine without aura and without status migrainosus, not intractable (CMS/HCC) (Primary Dx); CARLOS (obstructive sleep apnea); Lumbar radiculopathy; Fibromyalgia; Polypharmacy [facility] [place] [address] Comment on above: Migraine without aur a and without status migrainosus, not intractable (CMS/HCC) (Primary Dx); CARLOS (obstructive sleep apnea); Lumbar radiculopathy; Fibromyalgia; Polypharmacy Start: 12-28-2023 Influenza vaccination Influenza Vacc ine (#1) [facility] Start: 06-04-2023 [facility] Start: 07-24-2022 [facility] Start: 2009 Screening for malign ant neoplasm of breast Mammogram [facility] Start: 12-24-1999 Screening for malign ant neoplasm of cervix HPV/Cotest [facility] Start: 1969 Screening for malign ant neoplasm of colon [facility] MR Lumbar spine WO contrast [facility] Patient Education Jackie Non Diagn ostic Block [facility] Work Phone: Patient referral [facility] Work Phone: XR Knee - bilateral 4 Views [facility] Immunizations Immunization Date Immunization Notes Care Provider Yassine sheldon 10-07-2021 COVID-19 Comirnaty (Pfizer) Tri-Sucrose 12+ SENIOR STOCK PLAN ADMINISTRATOR-C Alyssa Arreola Work Phone: [facility] 10-07-2021 SARS-CoV-2 mRNA ([id number]-czvh-[id number] ose) vaccine KAYYSANTIAGO MIRAMONTES [facility] 10-07-2021 zoster vaccine recombinant KAYY MIRAMONTES [facility] 2020 SARS-CoV-2 (COVID-19 ) mRNA BNT-162b2 vax KAYY MIRAMONTES [facility] 12-02-2020 SARS-CoV-2 (COVID-19 ) mRNA BNT-162b2 vax KAYY MIRAMONTES [facility] 01-09-2015 influenza virus vaccine, unspecified formulation KAYY MIRAMONTES [facility] 01-09-2015 influenza, injectabl e, quadrivalent, preservative free SENIOR STOCK PLAN ADMINISTRATOR-C Alyssa Arreola Work Phone: [facility] NEGATED: Highlighted row has not occurred!07-31-2020 influenza virus vaccine, unspecified formulation KAYY MIRAMONTES [facility] Payers Date Payer Category Payer Self-pay [id number] 2022 Medicaid [facility] [id number] 2022 Medicaid [id number] 1969 Unknown [id number] 2..840.1.397486.3.579.2.647 1969 Unknown [id number] .840.1.337441.3.579.2.593 1969 Unknown [id number] 2.16.840.1.774949.3.579.2.593 1969 Unknown [id number] 2.16.840.1.966054.3.579.2.593 1969 Unknown [id number] 2.840.1.192442.3.579.2.593 1969 Unknown [id number] 2.16.840.1.423296.3.579.2.593 1969 Unknown [id number] 2.16.840.1.413499.3.579.2.593 1969 Unknown [id number] 2.16.840.1.129957.3.579.2.593 1969 Unknown [id number] 2.16.840.1.190997.3.579.2.593 1969 Unknown [id number] 2.16.840.1.481138.3.579.2.593 1969 Unknown [id number] 2.16.840.1.088249.3.579.2.593 1969 Unknown [id number] 2.16.840.1.684537.3.579.2.593 1969 Unknown [id number] 2.16.840.1.504351.3.579.2.593 1969 Unknown [id number] 2.16.840.1.491728.3.579.2.593 1969 Unknown [id number] 2.16.840.1.246479.3.579.2.593 1969 Unknown [id number] 2.16.840.1.169086.3.579.2.727 1969 Unknown [id number] 2.16.840.1.286506.3.579.2.727 1969 Unknown [id number] 2.16.840.1.762107.3.579.2.727 1969 Unknown [id number] 2.16.840.1.775706.3.579.2.727 1969 Unknown [id number] 2.16.840.1.075285.3.579.2.727 1969 Unknown [id number] 2.16.840.1.979294.3.579.2.727 1969 Unknown [id number] 2.16.840.1.060099.3.579.2.727 1970 Unknown [id number] 1970 Unknown [id number] [id number]59 1970 Unknown [id number] 2.16.840.1.791609.3.579.2.1259 1970 Unknown [id number] 2.16.840.1.861276.3.579.2.1258 1970 Unknown [id number] 2.16.840.1.780997.3.579.2.9 1969 Unknown [id number] 2.16840.1.003747.3.579.2.1258 1969 Unknown [id number] 2.16840.1.349803.3.579.2.1259 1970 Unknown [id number] 2.16.840.1.667801.3.579.2.1258 1970 Unknown [id number] 2.16.840.1.784998.3.579.2.9 1970 Unknown [id number] 2.16840.1.074886.3.579.2.7 1970 Unknown [id number] 2.16.840.1.743555.3.579.2.727 1960 Unknown [id number] Self-pay Self Pay Cosmetic/Pain Mgmt [id number] Unknown [id number] [id number] Unknown [place] [employer] [id number] Unknown [employer] [id number] Unknown [id number] 2.16.840.1.000464.3.579.2.531 Unknown [id number] 2.16.840.1.503801.3.579.2.531 Unknown [id number] [id number]1 Social History Date Type Detail Facility Start: 12-29-2020 End: 09-24-2023 Tobacco smoking status Never smoked tobacco (finding) [facility] Other Start: 09-24-2023 End: 05-05-2024 Sex Assigned At Female [facility] Other Start: 08-29-2021 End: 06-16-2024 Tobacco smoking status NHIS Ex-smoker (finding) [facility] Start: 1970 Sex Assigned At Female [facility] Tobacco smoking status Never [facility] Start: 09-24-2023 Tobacco use and exposure Smokeless tobacco non-user [facility] Start: 09-24-2023 End: 03-04-2024 Alcoholic beverage intake Lifetime non-drinker (finding) [facility] Start: 09-24-2023 End: 05-05-2024 History of Social function [facility] Start: 1970 Sex assigned at Not on file [facility] Start: 05-05-2024 End: 06-06-2024 Alcoholic beverage intake Ex-drinker (finding) [facility] Start: 06-16-2024 End: 09-29-2024 Sex Female (finding) [facility] Goals Date Patient Goal Desired Activity /State Functional Status Date Assessment Result Facility 02-12-2024 Functional Status N/A [facility] 07-29-2023 Functional Status N/A [facility] 07-15-2023 Functional Status N/A [facility] 05-28-2023 Functional Status N/A [facility] Clinical Notes 03-19-2021 to 09-15-2024 Cheyanne Schilling, ADONAY - 09/15/2024 9:40 AM EDT Note Date & Type Note Facility 09-15-2024 History of Presen t illness Narrative Images from the original note were not included. Chief Complaint Patient presents with Migraine Back Pain Subjective Shailesh Blake is a 53 y.o. female. History of Present Illness The patient presents today for follow-up. She states her migraines have worsened since the prior neurology appointment. She had not been able to berry picker Emgality from her pharmacy since 07/21/2024, so she has not taken this since June. The patient reports having a migraine almost every day last week. She has not had any this week. She describes them as throbbing and sharp. They are accompanied by nausea and increased sensitivity to sounds. They are not accompanied by vomiting or increased sensitivity to lights. She states, I just want to lay down in bed and try to sleep, when she has one. The patient also has not been able to obtain Nurtec from her pharmacy recently. She states, they won't give them to me. She tried the Zavpret sample provided at the prior appointment and states this was more effective than Nurtec. The patient states her fibromyalgia has been acting up recently. Her cat sat on her legs the other day, and it hurt. She reports tingling in the hands, arms, and feet occasionally. She also reports intermittent low back pain with radiation to the bilateral hips. Her knees can buckle at times. She otherwise denies any weakness, saddle anesthesia, or bowel or bladder dysfunction. She has an appointment with Dr. Cox (pain management) on September 29, 2024. She has not returned to the [facility] since the prior neurology appointment. She denies any further new concerns. The [...] pain and palpitations. Gastrointestinal: Negative for abdominal pain and vomiting. Musculoskeletal: Positive for arthralgias, back pain (low back) and neck pain. Negative for gait problem and myalgias. Positive for bilateral knee pain Neurological: Positive for headaches (accompanied by nausea and phonophobia). Negative for dizziness, tremors, seizures, syncope, facial asymmetry, speech difficulty, weakness, light-headedness and numbness. Positive for tingling/paresthesias (bilateral upper extremities and feet) Negative for saddle anesthesia. Psychiatric/Behavioral: Negative for confusion, hallucinations and suicidal ideas. Positive for history of anxiety and depression Past Medical History: Diagnosis Date Anxiety Backache Benign intracranial hypertension Bilateral carpal tunnel syndrome Blurred vision Common migraine (CMS/HCC) Depression (CMS/HCC) [...] Allergies: Aspirin and Wound dressing adhesive Vitals: 09/15/24 0955 BP: (!) 141/95 Pulse: 79 Body mass index is 53.67 kg/m . Weight: 353 lb Neurologic exam: Mental status and general [...] extensors , and wrist flexor strength 5/5. Phone Engineer strength 4+/5. LUE strength deltoid , biceps , triceps , wrist extensors , and wrist flexor strength 5/5. Phone Engineer strength 4+/5. RLE strength iliopsoas, quadriceps, tibialis anterior, and plantar flexion strength 5/5. LLE strength iliopsoas, quadriceps, tibialis anterior, and plantar flexion strength 5/5. Tone is normal. Seemingly tardive dyskinesia. Sensory: Sensation is intact to light touch throughout all four extremities. Sensation is intact to temperature in all extremities. Reflexes: RUE biceps reflex 1+ , brachioradialis reflex 1+. LUE biceps reflex 1+ , brachioradialis reflex 1+. RLE knee reflex 0. LLE knee reflex 0. Coordination: Dogyvz-yz-ddua testing normal. Rapid alternating movements are normal. Gait: Normal. Steady. Review and summary of old records: MRI of the cervical spine without contrast on 05/26/2024: Spinal cord is normal in caliber and signal. Mild multilevel spondylitic changes. No disc bulge or herniation and no high-grade spinal canal or neural foraminal narrowing at C2-C3, C3-C4, C4-C5, C6-C7, or C7-T1. At C5-C6, slight disc osteophyte complex indents the ventral thecal sac. Mild spinal canal narrowing. Mild bilateral neural foraminal narrowing is contributed to by uncovertebral and facet hypertrophy. EMG of the bilateral upper extremities at [facility] on 02/23/24: Normal. No evidence [...] of the lumbar spine w/o contrast at [facility] on 05/19/23: No fractures or subluxation. No pathologic movement on flexion or extension. There is mild intervertebral disc height loss at L3-L4, L4-L5, and L5-S1. Facet degenerative changes are present throughout the lower lumbar spine. The sacrum and sacroiliac joints are normal. MRI of the brain w and w/o contrast at [facility] on 05/15/23: No acute intracranial process. Scattered nonenhancing T2 hyperintense white matter lesions which are nonspecific, typically attributed to prior trauma/inflammation/demyelination, or chronic ischemia associated with migraine/atherosclerosis. Nasal sinus disease. MRI of the lumbar spine w/o contrast at [facility] on 02/14/21: See report for full details. [...] and without status migrainosus, not intractable (CMS/HCC) Ms. Blake is a 53-year-old female with chronic migraine. Onset was at 17 years of age. MRI of the brain on 05/15/2023 did not identify a secondary headache cause. The patient has tried Ajovy, Aimovig, Depakote, venlafaxine, lamotrigine, topiramate, rizatriptan, naratriptan, and Ubrelvy previously for migraine management without significant benefit. Emgality has effectively reduced her migraines. However, she presents today reporting difficulty obtaining this from her pharmacy since June 2024. Zavpret was more effective than Nurtec for migraine . PLAN: - Continue Emgality 120 mg subcutaneous once a month. I will ask staff look into why her pharmacy will no longer dispense this and ask that we complete a new prior authorization if needed - Stop Nurtec - Continue Zavzpret 10 mg/act solution as needed for migraine . Take no more than 1 time in 24 hours. Proper use reviewed - Ensure adequate hydration, adequate sleep, stress management, and regular exercise as tolerated CARLOS (obstructive sleep apnea) The [...] back pain with radiation to the bilateral L5 dermatomal distribution and intermittent paresthesias in the feet. She denies lower extremity weakness aside from history of bilateral knee weakness which I believe is likely secondary to arthritis in that location or deconditioning. MRI of the lumbar spine on 02/25/2024 identified DDD of the lumbar spine with mild central canal stenosis and neural foraminal narrowing at certain levels. MRI did not identify any significant spinal canal or neural foraminal stenosis. The patient has followed with both Dr. Cox (pain management) and [facility] with positive response. PLAN: - Follow up with pain management and [facility] for management - She is taking gabapentin 400 mg by mouth three times a day (managed by outside provider) Neck pain The patient reports intermittent paresthesias in the median nerve territory of the bilateral hands and intermittent numbness in the arms recently. She reports a history of bilateral carpal tunnel syndrome (CTS) and states she is status post carpal tunnel release on the right years ago. She denies history of left carpal tunnel release. Recent [facility] EMG on 02/23/2024 was normal and did not identify evidence of CTS. MRI of the cervical spine on 05/26/2024 identified mild multilevel spondylitic changes without high-grade spinal canal or neural foraminal stenosis at any level to explain her symptoms. Some of her neck pain and upper extremity symptoms may be musculoskeletal or secondary to fibromyalgia. PLAN: - Follow up with pain management and [facility] for management Polypharmacy PLAN: - Consider dose reduction or discontinuation of any unnecessary medications with outside providers Seizure ([facility]) The patient reportedly had one seizure in [...] terms. Follow up in the office within 3 months; sooner if needed for new or worsening symptoms. DL Lemus [facility] documented in this encounter [facility] 07-08-2024 Evaluation note Diagnosis Onset Date Resolution Chronic pain acute July 08, 2024 2:53pm Lumbar radiculopathy acute [place] [facility] 2024 2:53pm Primary osteoarthritis of left knee acute July 08, 2024 2:53pm Cervical spondylosis acute September 29, 2024 10:32am Chronic pain acute September 29 10:32am Lumbar radiculopathy acute September 29, 2024 10:32am Primary osteoarthritis of left knee acute September 29, 2024 10:32am Primary osteoarthritis of right knee acute September 29, 2024 10:32am [facility] Work Phone: 1(263) 152-972502-19-2025 Evaluation note* Diagnosis Onset Date Resolution Status Admit Date Chronic pain acute May 9:07am Primary osteoarthritis of le ft knee acute June 16, 025 9:07am Primary osteoarthritis of ri ght knee acute June 16 2 025 9:07am Chronic pain acute July 08, 2024 2:53pm Lumbar radiculopathy acute [place] [facility] 2024 2:53pm Primary osteoarthritis of le ft knee acute July 08, 2024 2:53pm [facility] Work Phone: 1(740) 629-443202-06-2025 History of Present illness Narrative* Cheyanne Schilling NP - 06/03/2024 1:20 PM EST Images from the original note were not included. Chief Complaint Patient presents with Migraine Neck Pain Subjective Shailesh Blake is a 53 y.o. female. History of Present Illness The patient presents today for a follow-up appointment. She had an MRI of the cervical spine completed for review. She states she never picked up the Zavzpret sample discussed at her prior appointment; states, I forgot all about it. The patient reports approximately 8 migraine days per month recently. She states her most recent migraine occurred the day after her Emgality injection and lasted 4 days. These are described as throbbing and achy. Severity is moderate to severe. She continues to use Nurtec as needed and states it will, lighten it up a little bit, but it don't get rid of it. The patient's neck has remained the same. She describes this as stiff feeling and states sometimes her posterior neck can be tender to touch. She continues to have intermittent tingling in her hands which has not worsened or improved. She denies weakness. She has not been back to the [facility] recently due to weather andsnow. She states she will return as soon as the snow clears up. She states they were doing physicaltherapy, acupuncture, cupping, chiropractic manipulation, and trigger point injections at [facility] which all helped to adequately control her neck and back pain. She also plans to follow up with Dr. Arreola regarding weight loss options. She denies any further new concerns. The [...] for bilateral knee pain Neurological: Positive for headaches (accompanied by photophobia and phonophobia). Negative for dizziness, tremors, seizures, syncope, facial asymmetry, speech difficulty, weakness, light-headedness and numbness. Positive for paresthesias (bilateral [...] Allergies: Aspirin and Wound dressing adhesive Vitals: 06/03/24 1319 BP: 134/80 Pulse: 95 SpO2: 99% Body mass index is 55.35 kg/m . weight: 364 lb Neurologic exam: Mental status and general appearance: Awake and alert with unlabored respirations. Oriented to person, place, and time. Recent and remotememory are intact. Speech is clear and fluent [...] extensors , and wrist flexor strength 5/5. Phone Engineer strength 4+/5. LUE strength deltoid , biceps , triceps , wrist extensors , and wrist flexor strength 5/5. Phone Engineer strength 4+/5. RLE strength iliopsoas, quadriceps, tibialis [...] reflex 0. LLE knee reflex 0. Coordination: Dwhpxo-rb-taue testing normal. Rapid alternating movements are normal. Gait: Normal. Steady. Review and summary of old records: MRI of the cervical spine without contrast on 05/26/2024: Spinal cord is normal in caliber and signal. Mild multilevel spondylitic changes. No disc bulge or herniation and no high-grade spinal canal or neural foraminal narrowing at C2- C3, C3-C4, C4-C5, C6-C7, or C7-T1. At C5-C6, slight disc osteophyte complex indents the ventral thecal sac. Mild spinal canal narrowing. Mild bilateral neural foraminal narrowing is contributed to by uncovertebral and facet hypertrophy. EMG of the bilateral upper extremities at [facility] on 02/23/24: Normal. No evidence [...] anterolisthesis. Mild diffuse disc bulge. Posterior element hypertrophy.Patent neural foramen. L5-S1: No disc protrusion. Posterior element hypertrophy. Patent central canal and neural foramen. X-ray of the lumbar spine w/o contrast at [facility] on 05/19/23: No fractures or subluxation. No pathologic movement on flexion or extension. There is mild intervertebral disc height loss at L3-L4, L4-L5, and L5-S1. Facet degenerative changes are present throughout the lower lumbar spine. The sacrum and sacroiliac joints are normal. MRI of the brain w and w/o contrast at [facility] on 05/15/23: No acute intracranial process. Scattered nonenhancing T2 hyperintense white matter lesions which are nonspecific, typically attributed to prior trauma/inflammation/demyelination, or chronic ischemia associated with migraine/atherosclerosis. Nasal sinus disease. MRI of the lumbar spine w/o contrast at [facility] on 02/14/21: See report for full details. [...] of age. MRI of the brain on 05/15/2023 did not identify a secondary headache cause. The patient has tried Ajovy, Aimovig, Depakote, venlafaxine, lamotrigine, topiramate, rizatriptan, naratriptan, and Ubrelvy previously for migraine management without significant benefit. Emgality has effectively reduced her migraines, however, Nurtechas varying effectiveness. PLAN: - Continue Emgality 120 mg subcutaneous once a month - May continue Nurtec 75 mg ODT as needed for acute migraine treatment - A sample of Zavzpret 10 mg/act solution was provided to the patient today. I educated the patienton proper use and possible adverse effects of Zavzpret. I advised the patient not to use Zavzpret concurrently with her Nurtec, as these medications work similarly. She verbalizes understanding and wishes to proceed. I advised her to notify the office if this is effective, and I will send in a formal prescription - Ensure adequate hydration, adequate sleep, stress management, and regular physical activity as tolerated - I again recommended the patient keep a headache journal (she has not yet done this). If migrainesseem to be triggered by neck tension, could [...] She denies lower extremity weakness aside from history of bilateral knee weakness which I believe is likely secondary to arthritis in that location. MRI of the lumbar spine on 02/25/2024 identified DDD of the lumbar spinewith mild central canal stenosis and neural foraminal narrowing at certain levels. MRI did not identify any significant spinal canal or neural foraminal stenosis. The patient previously followed withDr. Cox (pain management) but has since transitioned care to [facility] with positive response. PLAN: - Follow up with [facility] for management - She is taking gabapentin 400 mg by mouth three times a day (managed by outside provider) Neck pain The patient reports intermittent paresthesias in the median nerve territory of the bilateral hands and intermittent numbness in the arms recently. She reports a history of bilateral carpal tunnel syndrome (CTS) and states she is status post carpal tunnel release on the right years ago. She denies history of left carpal tunnel release. Recent [facility] EMG on 02/23/2024 was normal and did not identify evidence of CTS. MRI of the cervical spine on 05/26/2024 identified mild multilevel spondylitic changes without high-grade spinal canal or neural foraminal stenosis at any level to explain her symptoms. PLAN: - I reviewed MRI results with the patient. We discussed that some of her neck pain and upper extremity symptoms may be musculoskeletal or secondary to fibromyalgia - Follow up with [facility] for management Polypharmacy PLAN: - Consider dose reduction or discontinuation of any unnecessary medications with outside providers Seizure ([facility]) The patient reportedly had one seizure in [...] in detail. All questions answered. The patient verbalizesunderstanding and is agreeable to the plan. Discussion in layman's terms. Follow up in the office within 2 months; sooner if needed for new or worsening symptoms. DL Lemus [facility] encounterDo[facility] [id number] History of Present illness Narrative* Cheyanne Schililng NP - 05/05/2024 11:20 AM EST Images from the original note were not [...] migraines and states this was only helpful fo r 1 out of 4. For the migraines [...] weakness and does not drop objects. She isfollowing with [facility] for her neck and low back and [...] to person, place, and time. Recent and remotememory are intact. Speech is clear and fluent [...] extensors , and wrist flexor strength 5/5. Phone Engineer strength 4+/5. LUE strength deltoid , biceps , triceps , wrist extensors , and wrist flexor strength 5/5. Phone Engineer strength 4+/5. RLE strength iliopsoas, quadriceps, tibialis [...] reflex 0. LLE knee reflex 0. Coordination: Poqckh-sb-wlai testing normal. Rapid alternating movements are normal. Gait: Normal. Steady. Review and summary of old records: EMG of the bilateral upper extremities at [facility] on 02/23/24: Normal. No evidence [...] anterolisthesis. Mild diffuse disc bulge. Posterior element hypertrophy.Patent neural foramen. L5-S1: No disc protrusion. Posterior element hypertrophy. Patent central canal and neural foramen. X-ray of the lumbar spine w/o contrast at [facility] on 05/19/23: No fractures or subluxation. No pathologic movement on flexion or extension. There is mild intervertebral disc height loss at L3-L4, L4-L5, and L5-S1. Facet degenerative changes are present throughout the lower lumbar spine. The sacrum and sacroiliac joints are normal. MRI of the brain w and w/o contrast at [facility] on 05/15/23: No acute intracranial process. Scattered nonenhancing T2 hyperintense white matter lesions which are nonspecific, typically attributed to prior trauma/inflammation/demyelination, or chronic ischemia associated with migraine/atherosclerosis. Nasal sinus disease. MRI of the lumbar spine w/o contrast at [facility] on 02/14/21: See report for full details. [...] of age. MRI of the brain on 05/15/23was unremarkable for secondary headache cause. Ajovy, Aimovig, [...] plans to pick these up in our [place] office tomorrow. I educated the patient on [...] stenosis. The patient previously followed with Dr. Cox (pain management) but has since transitioned care to [facility] with positive response. PLAN: - Follow up with [facility] for management - She is taking gabapentin [...] for a structural lesion including degenerative cervical spinedisease which may be contributing to the patient's symptoms - Follow up with [facility] for management Polypharmacy PLAN: - Consider dose reduction or discontinuation of any unnecessary medications with outside providers Seizure ([facility]) The patient reportedly had one seizure in [...] in detail. All questions answered. The patient verbalizesunderstanding and is agreeable to the plan. Discussion in layman's terms. Follow up in the office within 1 month; sooner if needed for new or worsening symptoms. DL Lemus [facility] documented in this encounterDo[facility] [id number] Instructions* Patient Instructions* Cheyanne Schilling NP - 05/05/2024 11:20 AM EST - MRI of the cervical spine ([facility]) - Start Zavzpret as directed for acute migraine treatment. [facility] in this encounterDoctors [facility] of [id number] History of Present illness Narrative* Tank Lancaster, - 03/10/2024 1:15 PM EST Images from the original note were not included. Chief Complaint Patient presents with Sleep Apnea Subjective Shailesh Blake, 53 y.o., female here for follow up HPI Sleep ND The patient states that she is wearing her machine nightly. She typically leaves it on for at least4 hours. She denies any issues with her machine. She states that she is sleeping on average 9 hoursa night. She gets up once to go [...] a download we are trying to get 1from [employer]. She likely is taking off and not wearing it as long as she should through the night but states she is wearing at least 4 hours a night. She was counseled with her hypoxia down to 78 sheneeds to be wearing this whenever sleeping. She [...] Plan Trying to obtain a download from [facility] Her sleep study was once again reviewed with her with her oxygen going down to 78 percent Wear the CPAP machine whenever sleeping including naps The patient was counseled on the need for aggressive diet, exercise, and weight loss. The patient was counseled on the risks of stroke, [place], and sudden with CARLOS, along with the [...] once we get it. documented in this encounterDoctors Hospital of [id number] History of Present illness Narrative* Cheyanne Schilling NP - 03/04/2024 3:40 PM EST Images from the original note were not included. Cheyanne Schilling NP Chief Complaint Patient presents with Migraine Tingling Subjective Shailesh Blake is a 53 y.o. female. History of Present Illness Shailesh presents today for follow up. [facility] 7 to 8 migraine days [...] states pain management referred her to the [facility] where they are doing injections and therapy. [...] to person, place, and time. Recent and remotememory are intact. Speech is clear and fluent [...] wrist extensors , wrist flexor , and shredded filler cigar maker machine strength 5/5. LUE strength deltoid , biceps , triceps , wrist extensors , wrist flexor , and shredded filler cigar maker machine strength 5/5. RLE strength iliopsoas, quadriceps, tibialis [...] reflex 0. LLE Knee reflex 0. Coordination: Jenhqz-bh-iozi testing normal. Rapid alternating movements are normal. Gait: Normal. Review and summary of old records: EMG of the bilateral upper extremities at [facility] on 02/23/24: Normal. No evidence [...] anterolisthesis. Mild diffuse disc bulge. Posterior element hypertrophy.Patent neural foramen. L5-S1: No disc protrusion. Posterior element hypertrophy. Patent central canal and neural foramen. X-ray of the lumbar spine w/o contrast at [facility] on 05/19/23: No fractures or subluxation. No pathologic movement on flexion or extension. There is mild intervertebral disc height loss at L3-L4, L4-L5, and L5-S1. Facet degenerative changes are present throughout the lower lumbar spine. The sacrum and sacroiliac joints are normal. MRI of the brain w and w/o contrast at [facility] on 05/15/23: No acute intracranial process. Scattered nonenhancing T2 hyperintense white matter lesions which are nonspecific, typically attributed to prior trauma/inflammation/demyelination, or chronic ischemia associated with migraine/atherosclerosis. Nasal sinus disease. MRI of the lumbar spine w/o contrast at [facility] on 02/14/21: See report for full details. [...] at 17 years of age. MRI of thebrain on 05/15/23 was unremarkable for secondary headache cause. Ajovy, Aimovig, Depakote, venlafaxine, lamotrigine, and topiramate did not provide significant benefit for migraine prevention. Rizatriptan and naratriptan were minimally effective. Emgality has been effective, and Nurtec has been moreeffective than Ubrelvy for abortive treatment. PLAN: - [...] spine. Procedural interventions including RFAs via Dr. Cox have provided benefit for the patient's symptoms in the past. PLAN: - Follow up with pain management and the [facility] - She is taking gabapentin 400 mg [...] not significantly interfere with the patient's functionality ordisrupt her sleep. PLAN: - I reviewed EMG results with the patient - I recommended the use of bilateral cock-up wrist splints at bedtime if helpful for symptom management - Continue physical therapy at the [facility] Polypharmacy PLAN: - Consider dose reduction or discontinuation of any unnecessary medications with outside providers Seizure ([facility]) The patient reportedly had one seizure in [...] in detail. All questions answered. The patient verbalizesunderstanding and is agreeable to the plan. Discussion in layman's terms. Follow up in the office within 2 months; sooner if needed for new or worsening symptoms. DL Lemus [facility] documented in this [facility]11-07-2024 Instructions* Patient Instructions* Cheyanne Schilling NP - 03/04/2024 3:00 PM EST - Continue physical therapy documented in this [facility]10-24-2024 History of Present illness Narrative* EVETTE Sanchez - 02/19/2024 12:30 PM EDT Images from the original note were not included. Reason for Appointment: EMG Patient: Shailesh Blake : 1970 EMG Computer: Joyus Referring Physician: Dr. Joel Jerez EMG: TIMA cardiopulmonary technician: Wenceslao Carballo RT(R) Office Location: [place] Reason for EMG: c/o pain in bilateral hands/forearms L>R, neck pain into bilateral shoulders. Hxof CTR on right. Pt states Borderline DM. Not on blood thinners. Comments: Procedure was explained to the patient who expressed understanding. Patient appeared to have tolerated the test well despite some discomfort due to the nature of the test. documented in this [facility]10-22-2024 Telephone encounter Note* Telephone Encounter - Kelly Carty MA - 02/17/2024 10:32 AM EDT Patient picked this up on 02/10 and has refills on file with the pharmacy and they said she should be able to berry picker it uo every 30 days. [facility] [id number] Miscellaneous Notes* Telephone Encounter - Kelly Carty MA - 02/17/2024 10:32 AM EDT Patient picked this up on 02/10 and has refills on file with the pharmacy and they said she should be able to berry picker it uo every 30 days. * Telephone Encounter - Carol Sheridan MA - 02/11/2024 1:24 PM EDT PA request was in epic, I did this on [facility] but got this response: Electronic prior authorization not supported as a duplicate PA was found. If requesting a dose increase or requesting above quantity limits, please submit via other methods. * Telephone Encounter - Cheyanne Schilling NP - 02/11/2024 12:39 PM EDT I prescribed Nurtec at the patient's prior appointment. She states her pharmacy dispensed one 30-day prescription to her and then no further refills. Are you able to look into this please? I did reorder the medication today. Not sure if it just needs a prior authorization. documented in this encounterDoctors Hospital of [id number] Evaluation + Plan note Diagnostic Tests Pending * Urine Culture 02/12/24 [facility] [id number] Hospital Discharge instructions Patient Education 02/12/2024 09:43:47 [...] muscles thatmake your bladder squeeze too soon. This condition [...] your health care provider. General instructions Take igsb-tkx-bwdqlrp and prescription medicines only as told by [...] provider. Document Revised: 01/01/2021 Document Reviewed: 01/01/2021 [employer] Patient Education 2023 GoGuide. Follow Up Care 07/29/2023 15:25:11 With:KAYY MIRAMONTES PA-C, URL Address: [address] [place] [address] Business (1) When: Unknown Comments:pending results of imaging/testing, will call with next steps [facility] 10-17-2024 NotePatient Education Obstetrics and Gynecology Overactive Bladder, Adult [...] muscles thatmake your bladder squeeze too soon. This condition [...] as stroke, dementia, Parkinson's disease, or multiple sclerosis(MS). ? Eat or drink alcohol, spicy food, [...] health care provider. General instructions ? Take jzvn-ouv-rraztwl and prescription medicines only as told by [...] help your health care (more content not included)...[facility]10-16-2024 Telephone encounter Note* Telephone Encounter - Carol Sheridan MA - 02/11/2024 1:24 PM EDT PA request was in [facility], I did this on [facility] but got this response: Electronic prior authorization not supported as a duplicate PA was found. If requesting a dose increase or requesting above quantity limits, please submit via other methods. [facility] of [id number] Telephone encounter Note* Telephone Encounter - Cheyanne Schilling NP - 02/11/2024 12:39 PM EDT I prescribed Nurtec at the patient's prior appointment. She states her pharmacy dispensed one 30-day prescription to her and then no further refills. Are you able to look into this please? I did reorder the medication today. Not sure if it just needs a prior authorization. [facility] of [id number] History of Present illness Narrative* Cheyanne Schilling NP - 02/11/2024 10:40 AM EDT Images from the original note were not included. Cheyanne Schilling NP Chief Complaint Patient presents with Migraine Back Pain Subjective Shailesh Blake is a 53 y.o. female. HPI The patient presents today for follow up. At the prior appointment, Ubrelvy was discontinued, and Nurtec was prescribed. The patient states she received a 30- day supply of Nurtec from her pharmacy but then received no further refills. She states she was told by her primary care provider that she charo, borderline diabetic. The patient has had approximately [...] a migraine. She does not take any ijdy-tik-rpxpkrx medications for her migraines because she is fearful to do so. She states Nurtec reduced her headache pain to a tolerable level when she took it. The patient continues to have low back pain. This is located in the medial back. It is intermittent. It is aggravated by certain movements and physical activity. It can radiate to the anterior thighsintermittently. She denies numbness but reports a tingling [...] to person, place, and time. Recent and remotememory are intact. Speech is clear and fluent [...] wrist extensors , wrist flexor , and shredded filler cigar maker machine strength 5/5. LUE strength deltoid , biceps , triceps , wrist extensors , wrist flexor , and shredded filler cigar maker machine strength 5/5. RLE strength iliopsoas, quadriceps, tibialis [...] reflex 0. LLE Knee reflex 0. Coordination: Hxchjc-jm-qhmh testing normal. Rapid alternating movements are normal. Gait: Normal. Review and summary of old records: X-ray of the lumbar spine w/o contrast at [facility] on 05/19/23: No fractures or subluxation. No pathologic movement on flexion or extension. There is mild intervertebral disc height loss at L3-L4, L4-L5, and L5-S1. Facet degenerative changes are present throughout the lower lumbar spine. The sacrum and sacroiliac joints are normal. MRI of the brain w and w/o contrast at [facility] on 05/15/23: No acute intracranial process. Scattered nonenhancing T2 hyperintense white matter lesions which are nonspecific, typically attributed to prior trauma/inflammation/demyelination, or chronic ischemia associated with migraine/atherosclerosis. Nasal sinus disease. MRI of the lumbar spine w/o contrast at [facility] on 02/14/21: See report for full details. [...] at 17 years of age. MRI of thebrain on 05/15/23 was unremarkable for secondary headache [...] red flag symptoms including saddle anesthesia, bowel/bladder dysfunction,or lower extremity weakness. Procedural interventions including RFAs via Dr. Cox provided benefit in the past. She states pain management told her to follow up as needed, but she continues to have back pain. PLAN: - I advised the patient to call and schedule an appointment with pain management to discuss ongoingtreatment and consideration of further procedural interventions to [...] any unnecessary medications with outside providers Seizure ([facility]) The patient reportedly had one seizure in [...] in detail. All questions answered. The patient verbalizesunderstanding and is agreeable to the plan. Discussion in layman's terms. Follow up in the office within 1 months; sooner if needed for new or worsening symptoms. Cheyanne Schilling NP [facility] documented in this encounterDoctors Hospital of [id number] Instructions* Patient Instructions* Cheyanne Schilling NP - 02/11/2024 10:40 AM EDT - EMG of the bilateral upper extremities - Will prescribe bilateral cock-up wrist splints to wear at bedtime - Follow up with pain management for back pain documented in this encounterDoctors Hospital of [id number] Hospital Discharge instructions Patient Education 07/29/2023 15:05:16 [...] muscles thatmake your bladder squeeze too soon. This condition [...] your health care provider. General instructions Take ahui-ajk-ixkebty and prescription medicines only as told by [...] provider. Document Revised: 01/01/2021 Document Reviewed: 01/01/2021 [employer] Patient Education 2022 GoGuide. Follow Up Care 06/06/2023 14:46:16 With:KAYY MIRAMONTES PA-C, URL Address: [address] [place] [id number] When:Within 6 Month(s) Comments:Pt to call and cancel if asymptomatic. [facility] [place] 03-19-2024 Hospital Discharge instructions Patient Education 07/15/2023 08:51:38 [...] With:Hermilo GASTON Address: [facility] [address] [place] [address]- Business (1) When:07/29/2023 08:51:07 Comments:With Whit Miramontes and [facility]03-19-2024 Note [id number] [facility] 07-15-2023 NoteCustom Cystoscopy with Botox injection ? Voiding after the procedure: there may be some pain, burning, urgency, frequency and blood tingedurine following the procedure. These symptoms usually resolve [...] if you have a fever over 100 degrees.[facility] 06-05-2023 Evaluation note* Encounter Date Diagnosis Assessment Notes Treatment Notes Treatment Clinical Notes May, Fibromyalgia (ICD-10 - M79.7) [facility] Other [id number] [facility] Hospital Discharge instructions Patient Education 05/28/2023 16:17:13 [...] including vitamins, herbs, eye drops, creams, and jvud-hjn-mmemlbb medicines. Any problems you or family members [...] provider tells you to take them. Taking klud-out-kxjzyqc medicines, vitamins, herbs, and supplements. General instructions [...] Follow these instructions at home: Medicines Take tfab-uwy-sipaoyb and prescription medicines only as told by [...] provider. Document Revised: 10/19/2021 Document Reviewed: 10/19/2021 [employer] Patient Education 2022 GoGuide. 05/28/2023 16:17:08 Urinary Incontinence Urinary Incontinence Urinary [...] nerve stimulation). ?For women, using a medical care evaluation specialist to prevent urine leaks. This is a [...] right after experiencing incontinence. General instructions Take nbfl-edw-bxvmdyi and prescription medicines only as told by [...] important. Where to find more information National [place] of Diabetes and Digestive and Kidney Diseases: www.niddk.nih.gov [employer]: www.urologyhealth.org Contact a health care [...] provider. Document Revised: 11/17/2020 Document Reviewed: 11/17/2020 [employer] Patient Education 2022 GoGuide. Follow Up Care 04/22/2023 13:23:48 With:KAYY MIRAMONTES PA-C, URL Address: [address] [place] [address] [phone] When: Unknown Comments:sched cysto or Botox [facility] [place] 01-22-2024 Evaluation note* Encounter Date [...] (ICD-10 - M79.7) Continue medications as prescribed [facility] Other 12-13-2023 Evaluation note* Encounter Date Diagnosis [...] medication related side effects. UDS performed through [facility] today, will await confirmatory results. [facility] Other 09-28-2023 Evaluation note* Encounter Date Diagnosis [...] pain (ICD-10 - G89.29) Continue taking medications [facility] Other 09-14-2023 Evaluation note* Encounter Date Diagnosis [...] 400 mg, two to three times daily [facility] Other 07-13-2023 Evaluation note* Encounter Date Diagnosis [...] close to needing a refill of Gabapentin [facility] Other 07-06-2023 Evaluation note* Encounter Date Diagnosis [...] Stable. Oct, Sacroiliitis (ICD-10 - M46.1) Stable. [facility] Other 04-12-2023 Evaluation note* Encounter Date Diagnosis [...] - M46.1) Follow up in 4 weeks [facility] Other 03-29-2023 [facility] note* Encounter Date Diagnosis [...] Proceed with updated imaging of the shoulder. [facility] Other 01-20-2023 Evaluation note* Encounter Date Diagnosis [...] Proceed with updated imaging of the shoulder. [facility] Other 12-09-2022 Evaluation note* Encounter Date Diagnosis [...] schedule her next appointment to refill this. [facility] Other 10-13-2022 Evaluation note* Encounter Date Diagnosis [...] M47.817) Stable. Continue with current treatment plan. [facility] Other 09-23-2022 Evaluation note* Encounter Date Diagnosis [...] - G89.29) Continue taking Gabapentin as prescribed. [facility] Other 08-22-2022 Evaluation note* Encounter Date Diagnosis [...] - G89.29) Continue taking Gabapentin as prescribed. [facility] Other 06-20-2022 Evaluation note* Encounter Date Diagnosis [...] to use as tolerated for pain relief. [facility] Other 06-14-2022 Evaluation + Plan note Diagnostic Tests Pending * Urine Culture 10/09/21 [facility]05-19-2022 Evaluation note* Encounter Date Diagnosis [...] time. August, Chronic pain (ICD-10 - G89.29) [facility] Other [id number] Evaluation + Plan note Diagnostic Tests Pending * Urine Culture 08/09/21 [facility]04-14-2022 Hospital Discharge instructions Patient Education [...] fried and sweet foods. General instructions Take qemm-for-cnyxfsr and prescription medicines only as told by [...] 02/08/2010 Document Revised: 08/05/2019 Document Reviewed: 04/30/2018 [employer] Patient Education 2020 [employer] Follow Up Care 07/11/2021 12:59:04 With:KAYY MIRAMONTES PA-C, URL Address: [address] [place] [address] [phone] When: Unknown [facility] [place] 04-07-2022 Evaluation note* Encounter Date [...] time. Jul, Chronic pain (ICD-10 - G89.29) [facility] Other 03-14-2022 Evaluation note* Encounter Date Diagnosis [...] (ICD-10 - G89.29) Continue medications as prescribed [facility] Other 03-09-2022 Evaluation note* Encounter Date Diagnosis Assessment Notes Treatment Notes Treatment Clinical Notes Jun, GERD (gastroesophageal reflux disease) (ICD-10 - K21.9) Jun, Irritable bowel syndrome with constipation (ICD-10 - K58.1) Jun, Morbid obesity (ICD-10 - E66.01) [facility] Other 02-10-2022 Evaluation note* Encounter Date Diagnosis [...] (ICD-10 - G89.29) Continue medications as prescribed [facility] Other 12-09-2021 Evaluation note* Encounter Date Diagnosis [...] (ICD-10 - G89.29) Continue medications as prescribed [facility] Other 11-22-2021 Evaluation note* Encounter Date Diagnosis [...] (ICD-10 - G89.29) Continue medications as prescribed [facility] Other Evaluation + Plan note No data available for this section [facility] Evaluation + Plan note Future Appointments Appointment Date:07/15/2023 08:30:00 AM Scheduled Provider: Location:[facility] Appointment Type:Urology FT Appointment Date:07/29/2023 02:40:00 PM Scheduled Provider:KAYY MIRAMONTES PA-C Location:[facility] Appointment Type:URO Office Visit Diagnostic Tests Pending * [facility] Future Appointments Appointment Date:07/15/2023 08:30:00 AM Scheduled Provider: Location:[facility] Appointment Type:Urology FT Appointment Date:07/29/2023 02:40:00 PM Scheduled Provider:KAYY MIRAMONTES PA-C Location:[facility] Appointment Type:URO Office Visit [facility] evaluation + Plan note Future Appointments Appointment Date:07/29/2023 02:40:00 PM Scheduled Provider:KAYY MIRAMONTES PA-C Location:[facility]ointment Type:[facility]O [facility] Future Appointments Appointment Date:02/03/2024 08:20:00 AM Scheduled Provider:KAYY MIRAMONTES PA-C Location:[facility] Appointment Type:URO Office Visit [facility] Other Evaluation noteNo InformationNort Note Other Evaluation noteNort Note Other Evalucezvx noteNo assessment information available [facility] Work Phone: evaluiavfb note* Diagnosis Onset Date Resolution Status Chronic pain acute Fibromyalgia acute Lumbosacral spondylosis without myelopathy acute Sacroiliitis acute [facility] Work Phone: evaluation note* Diagnosis Onset Date Resolution Status Chronic pain acute Fibromyalgia acute Lumbosacral spondylosis without myelopathy acute Sacroiliitis acute Chronic pain acute Fibromyalgia acute Lumbosacral spondylosis without myelopathy acute Osteoarthritis of both knees acute Sacroiliitis acute Thoracic spondylosis acute [facility] Work Phone: evaluation note* Diagnosis Onset Date Resolution Status Chronic pain acute Fibromyalgia acute Lumbosacral spondylosis without myelopathy acute Osteoarthritis of both knees acute Sacroiliitis acute [facility] Work Phone: evaluation note* Diagnosis Onset Date Resolution Status Chronic pain acute Fibromyalgia acute Lumbosacral spondylosis without myelopathy acute Osteoarthritis of both knees acute Sacroiliitis acute Chronic pain acute Lumbar radiculopathy acute Primary osteoarthritis of left knee acute Primary osteoarthritis of right knee acute [facility] Work Phone: evaluation note* Diagnosis Onset Date Resolution Status Chronic pain acute Fibromyalgia acute Lumbosacral spondylosis without myelopathy acute Osteoarthritis of both knees acute Sacroiliitis acute Chronic pain acute Lumbar radiculopathy acute Primary osteoarthritis of left knee acute Primary osteoarthritis of right knee acute Chronic pain acute Primary osteoarthritis of left knee acute Primary osteoarthritis of right knee acute [facility] Work Phone: Evaluation note* Diagnosis Migraine without aura and without status migrainosus, not intractable (CMS/HCC)- Primary CARLOS (obstructive sleep apnea) Obstructive sleep apnea (adult) (pediatric) Carpal tunnel syndrome, bilateral Carpal tunnel syndrome Polypharmacy Issue of repeat prescriptions Seizure (CMS/HCC) Other convulsions documented in this encounter [facility]* Diagnosis Paresthesia- Primary Disturbance of skin sensation documented in this encounter [facility]* Diagnosis Migraine without aura and without status migrainosus, not intractable (CMS/HCC)- Primary CARLOS (obstructive sleep apnea) Obstructive sleep [...] aura and without status migrainosus, not intractable (CMS/HCC)- Primary CARLOS (obstructive sleep apnea) Obstructive sleep apnea (adult) (pediatric) Lumbar radiculopathy Thoracic or lumbosacral neuritis or radiculitis, unspecified Degeneration of intervertebral disc of lumbar region, unspecified whether pain present Paresthesias Disturbance of skin sensation Polypharmacy Issue of repeat prescriptions Seizure (CMS/HCC) Other convulsions documented in this encounter [facility]* Diagnosis Migraine without aura and without status migrainosus, not intractable (CMS/HCC)- Primary CARLOS (obstructive sleep apnea) Obstructive sleep apnea (adult) (pediatric) Lumbar radiculopathy Thoracic or lumbosacral neuritis or radiculitis, unspecified Degeneration of intervertebral disc of lumbar region, unspecified whether pain present Neck pain Cervicalgia Polypharmacy Issue of repeat prescriptions Seizure (CMS/HCC) Other convulsions documented in this encounter [facility]* Diagnosis Onset Date Resolution Status Admit Date Chronic pain acute May 9:07am Primary osteoarthritis of le ft knee acute June 16, 2 025 9:07am Primary osteoarthritis of ri ght knee acute June 16, 2 025 9:07am [facility] Work Phone: Evaluation note* Diagnosis Migraine without aura and without status migrainosus, not intractable (CMS/HCC)- Primary CARLOS (obstructive sleep apnea) Obstructive sleep apnea (adult) (pediatric) Lumbar radiculopathy Thoracic or lumbosacral neuritis or radiculitis, unspecified Degeneration of intervertebral disc of lumbar region, unspecified whether pain present Neck pain Cervicalgia Polypharmacy Issue of repeat prescriptions Seizure (CMS/HCC) Other convulsions documented in this encounter [facility]History general Narrative - ReportedNoProfessional [facility] Note Other History general Narrative - Reported* Type [...] History ENDOMETRIAL ABLATION Surgical History WISDOM TEETH [employer] Other History general Narrative - ReportedNoProfessional [facility] Note Other History general Narrative - ReportedNoC[place] 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 Narrative - Reported* Type Description Date [...] History WISDOM TEETH Hospitalization History see above [facility] Other Hospital Discharge instructions No data available for this section [facility] No data available for this section [facility] Summary Purpose Family History No Family History [...] Time Advance Directives No November 06 1:31pm Advance Directive Response Recorded Date/ Time Advance Directives No June 01, 2024 11:03am Advance Directive Response Recorded Date/ Time Advance Directives No May 10:50am Chief Complaint and Reason for Visit Chief [...] knees Sacroiliitis Chief Complaint med refill m17.0 Reason for Visit Chronic [...] Primary osteoarthritis of right knee Chief Complaint Admit Date April 27, 2024 8:20am med refill June 16, 2024 9:07am Reason for Visit Admit Date Chronic pain June 16, 2024 9:07am Primary osteoarthritis of left knee Fe[facility] 2024 9:07am Primary osteoarthritis of right knee Feb ruary 2024 9:07am Chief Complaint Admit Date April 27, 2024 8:20am med refill June 16, 2024 9:07am steroid injection L knee/med refill [facility] 20[facility] 2:53pm Reason for Visit Admit Date Chronic pain June 16, 2024 9:07am Primary osteoarthritis of left knee Febr [facility] 2024 9:07am Primary osteoarthritis of right knee Feb ruary 2024 9:07am Chronic pain July 08, 2024 2:5 3pm Lumbar radiculopathy July 08, 2024 2: 53pm Primary osteoarthritis of left knee [facility] 2024 2:53pm Chief Complaint Admit Date steroid injection L knee/med refill [facility] 20[facility] 2:53pm Amb Documentation August 12, 2024 11: 17am September 16, 2024 10:00 am MED REFILL FOR PAIN CONTROL September 29 10:32am Reason for Visit Admit Date Chronic pain July 08, 2024 2:5 3pm Lumbar radiculopathy July 08, 2024 2: 53pm Primary osteoarthritis of left knee [facility] 2024 2:53pm Cervical spondylosis September 29, 2024 10:3 2am Chronic pain September 29, 2024 10:32 am Lumbar radiculopathy September 29, 2024 10:3 2am Primary osteoarthritis of left knee September 29, 2024 10:32am Primary osteoarthritis of right knee [facility] 2024 10:32am Additional Source Comments INFORMATION SOURCE (unrecogn ized section and content) DATE CREATED AUTHOR 05/03/2021 [facility] DATE CREATED AUTHOR AUTHOR'S ORGANIZ ATION 08/30/2022 [facility] [place] DATE CREATED AUTHOR AUTHOR'S ORGANIZ ATION 02/14/2024 [facility] DATE CREATED AUTHOR AUTHOR'S ORGANIZ ATION 02/16/2024 [facility] DATE CREATED AUTHOR AUTHOR'S ORGANIZ ATION 09/22/2024 [facility] DATE CREATED AUTHOR AUTHOR'S ORGANIZ ATION 09/23/2024 [facility] DATE CREATED AUTHOR AUTHOR'S ORGANIZ ATION 09/24/2024 [facility] DATE CREATED AUTHOR AUTHOR'S ORGANIZ ATION 09/30/2024 [facility] DATE CREATED AUTHOR AUTHOR'S ORGANIZ ATION 11/13/2024 [facility] Care Team (unrecognized sect ion and content) Team Status: Active Member Role Status Dates Alyssa Arreola NP-C Primary Care Provider Active Team Status: Inactive Member Role Status Dates Alyssa Arreola NP-C Primary Care Provider Active Start: July 08, 2024 End: July 08, 2024 Asif Cox MD Attending Provider Active Sta rt: July 08, 2024 End: July 08, 2024 Team Status: Active Member Role Status Dates Alyssa Arreola NP-C Primary Care Pr ovider, Attending Provider Active Start: August 04, 2024 Team Status: Active Member Role Status Dates Alyssa Arreola NP-C Primary Care Provider Active Start: August 12, 2024 Jolene Morales LPN Attending Provider Active S tart: August 12, 2024 Team Status: Active Member Role Status Dates Alyssa Arreola NP-C Primary Care Provider Active Start: September 16, 2024 Alexey Maki MD Attending Provider Active Start: September 16, 2024 Team Status: Inactive Member Role Status Dates Alyssa Arreola NP-C Primary Care Provider Active Start: September 29, 2024 End: September 29, 2024 Destini Kilgore NP Attending Provider Active Start: September 29, 2024 End: September 29, 2024 Team Status: Active Member Role Status Dates Alyssa Arreola NP-C Primary Care Provider Active Start: April 27, 2024 Alexey Maki MD Attending Provider Active Start: April 27, 2024 Team Status: Inactive Member Role Status Dates Alyssa Lesly Maxwell , SENIOR STOCK PLAN ADMINISTRATOR-C Primary Care Provider Active Start: June 16, 2024 End: June 16, 2024 Destini Kilgore SENIOR STOCK PLAN ADMINISTRATOR Attending Provider Active Start: June 16, 2024 End: June 16, 2024 Team Status: Inactive Member Role Status Dates Alyssa Arreola SENIOR STOCK PLAN ADMINISTRATOR-C Primary Care Provider Active Start: December 11, 2023 End: December 11, 2023 Destini Kilgore SENIOR STOCK PLAN ADMINISTRATOR Attending Provider Active Start: December 11, 2023 End: December 11, 2023 Team Status: Active Member Role Status Dates Alyssa Arreola SENIOR STOCK PLAN ADMINISTRATOR-C Primary Care Provider Active Start: December 16, 2023 Alexey Maki MD Attending Provider Active Start: December 16, 2023 Team Status: Inactive Member Role Status Dates Alyssa Arreola SENIOR STOCK PLAN ADMINISTRATOR-C Primary Care Provider Active Start: January 02, 2024 End: January 02, 2024 Asif Cox MD Attending Provider Active Sta rt: January 02, 2024 End: January 02, 2024 Team Status: Active Member Role Status Dates Alyssa Arreola SENIOR STOCK PLAN ADMINISTRATOR-C Primary Care Provider Active Start: June 24, 2023 Alexey Maki MD Attending Provider Active Start: June 24, 2023 Team Status: Inactive Member Role Status Dates Aylssa Arreola SENIOR STOCK PLAN ADMINISTRATOR-C Primary Care Provider Active Start: July 16, 2023 End: July 16, 2023 Asif Cox MD Active Start: [facility]2023 End: July 16, 2023 Destini Kilgore , SENIOR STOCK PLAN ADMINISTRATOR Attending Provider Active Start: July 16, 2023 End: July 16, 2023 Team Status: Inactive Member Role Status Dates Alyssa Arreola SENIOR STOCK PLAN ADMINISTRATOR-C Primary Care Provider Active Start: September 04, 2023 End: September 04, 2023 Destini Kilgore , SENIOR STOCK PLAN ADMINISTRATOR Attending Provider Active Start: September 04, 2023 End: September 04, 2023 Team Status: Inactive Member Role Status Dates Asif Cox MD Attending Provider Active Sta rt: May 19, 2023 End: May 19, 2023 Team Status: Inactive Member Role Status Dates Alyssa Arreola SENIOR STOCK PLAN ADMINISTRATOR-C Primary Care Provider Active Start: May 19, 2023 End: May 19, 2023 Asif Cox MD Attending Provider Active Sta rt: May 19, 2023 End: May 19, 2023 Team Status: Inactive Member Role Status Dates Alyssa Arreola SENIOR STOCK PLAN ADMINISTRATOR-C Primary Care Provider Active Start: June 04, 2023 End: June 04, 2023 Asif Cox MD Attending Provider Active Sta rt: June 04, 2023 End: June 04, 2023 Team Status: Active Member Role Status Dates Alyssa Arreola SENIOR STOCK PLAN ADMINISTRATOR-C Primary Care Provider Active Start: February 25, 2023 Alexey Maki MD Attending Provider Active Start: February 25, 2023 Team Status: Inactive Member Role Status Dates Destini Kilgore SENIOR STOCK PLAN ADMINISTRATOR Attending Provider Active Start: April 09, 2023 End: April 09, 2023 Team Status: Inactive Member Role Status Dates Alyssa Arreola SENIOR STOCK PLAN ADMINISTRATOR-C Primary Care Provider Active Start: April 09, 2023 End: April 09, 2023 Destini Kilgore SENIOR STOCK PLAN ADMINISTRATOR Attending Provider Active Start: April 09, 2023 End: April 09, 2023 Team Status: Inactive Member Role Status Dates Alyssa Arreola SENIOR STOCK PLAN ADMINISTRATOR-C Primary Care Provider Active Asif Cox MD Attending Provider Active Team Status: Inactive Member Role Status Dates Alyssa Arreola SENIOR STOCK PLAN ADMINISTRATOR-C Primary Care Provider Active Destini Kilgore SENIOR STOCK PLAN ADMINISTRATOR Attending Provider Active Team Status: Active Member Role Status Dates Alyssa Arreola SENIOR STOCK PLAN ADMINISTRATOR-C Primary Care Provider Active Start: March 06, 2023 Alexey Maki MD Attending Provider Active Start: March 06, 2023 Team Status: Active Member Role Status Dates Alyssa Arreola SENIOR STOCK PLAN ADMINISTRATOR-C Primary Care Provider Active Start: October 15, 2023 Alexey Maki MD Attending Provider Active Start: October 15, 2023 Team Status: Active Member Role Status Dates Alyssa Arreola SENIOR STOCK PLAN ADMINISTRATOR-C Primary Care Provider Active Start: January 06, 2024 Alexey Maki MD Attending Provider Active Start: January 06, 2024 Team Status: Inactive Member Role Status Dates Alyssa Arreola SENIOR STOCK PLAN ADMINISTRATOR-C Primary Care Provider Active Start: January 15, 2024 End: January 15, 2024 Asif Cox MD Attending Provider Active Sta rt: January 15, 2024 End: January 15, 2024 Cyanide Pot Tender Relationship Specialty Start Date End Date Alyssa Arreola MD [address] [id number] Referring Physician Family Medicine 09/24/23 Cyanide Pot Tender Relationship Specialty [place] [address] [place], [place] [id number] Referring Physician Family Medicine 09/24/23 Cyanide Pot Tender Relationship Specialty Start [place] [address] [place], [place] [phone] Referring Physician Family Medicine 09/24/23 Cyanide Pot Tender Relationship Specialty Start [place] [address] [place], [place] [id number] Referring Physician Family Medicine 09/24/23 Team Status: Active Member Role Status Dates Alyssa Arreola NP-C Primary Care Provider Active Start: February 16, 2024 Aelxey Maki MD Attending Provider Active Start: February 16, 2024 Team Status: Inactive Member Role Status Dates Alyssa Arreola NP-C Primary Care Provider Active Start: February 25, 2024 End: February 25, 2024 Asif Cox MD Attending Provider Active Sta rt: February 25, 2024 End: February 25, 2024 Cyanide Pot Tender Relationship Specialty Start Date End Date Alyssa Arreola MD [address] [place], [place] [phone] Referring Physician Family Medicine 09/24/23 Joel Jerez DO [address] [address] Referring Physician Neurology 03/04/24 Cyanide Pot Tender Relationship Specialty Start Date End Date Alyssa Arreola MD [address] [place], [place] [phone] Referring Physician Family Medicine 09/24/23 Joel Jerez DO [address] [id number] Referring Physician Neurology 03/04/24 Cyanide Pot Tender Relationship Specialty Start Date End Date Alyssa Arreola MD [address] [place], [place] [phone] Referring Physician Family Medicine 09/24/23 Joel Jerez DO [address] [place] [address] Referring Physician Neurology 03/04/24 Cyanide Pot Tender Relationship Specialty Start Date End Date Unallocated, Mary Dahl MD [address] [place] [address] [place] [id number] PCP - General Family Medicine 05/05/24 Alyssa Arreola MD [address] [place], [place] [phone] Referring Physician Family Medicine 09/24/23 Joel Jerez DO [address] [id number] Referring Physician Neurology 03/04/24 Cyanide Pot Tender Relationship Specialty Start Date End [place]allocated, [place] [address] [place] [id number] PCP - General Family Medicine 05/05/24 Alyssa Arreola MD [address] [place] [address] Referring Physician Family Medicine 09/24/23 Joel Jerez DO [address] [address] Referring Physician Neurology 03/04/24 Cyanide Pot Tender Relationship Specialty Start Date End Date Unallocated, Mary Dahl MD [address] [place] [address] PCP - General Family Medicine 05/05/24 Alyssa Arreola MD [address] [place] [address] Referring Physician Family Medicine 09/24/23 Joel Jerez DO [address] [address] Referring Physician Neurology 03/04/24 Cyanide Pot Tender Relationship Specialty Start Date End Date Unallocated, Mary Dahl MD [address] [place] [id number] PCP - General Family Medicine 05/05/24 Alyssa Arreola MD [address] [place] [id number] Referring Physician Family Medicine 09/24/23 Joel Jerez DO [address] [phone] Referring Physician Neurology 03/04/24 REASON FOR VISIT (unrecogniz ed section and content) Reason Comments Migraine Back Pain Reason Comments Migraine Tingling Reason Comments Sleep Apnea Reason Comments Migraine Tingling Reason Comments Migraine Neck Pain Goals (unrecognized section and content) Goals may [...] BE BASED ON THE PRIMARY CLINICAL RECORDS. [facility]. provides no warranty or guarantee of the accuracy or completeness of information in this document.
[2024-11-23 10:42] LABS: Iron 162.0 ug/dL (50.0-170.0)
[2024-11-23 10:51] LABS: Alanine Aminotransferase 71 U/L (14-59); Albumin Globulin Ratio 0.9; Albumin Level 3.7 g/dL (3.4-5.0); Alkaline Phosphatase 114 U/L (46-116); Anion Gap 13.3; Aspartate Amino Transferase 35 U/L (15-37); Blood Urea Nitrogen 14.0 mg/dL (7.0-18.0); Calcium 9.1 mg/dL (8.5-10.1); Carbon Dioxide 27.1 mmol/L (21.0-32.0); Chloride 101 mmol/L (98-107); Cholesterol 151 mg/dL (<=200); Estimated GFR (African America >60 (>=60 mL/min/1.73m^2); Estimated GFR (Non-African Ame >60 (>=60 mL/min/1.73m^2); Free T3 2.82 pg/mL (2.18-3.98); Globulin 4.3 g/dL; Glucose 143 mg/dL (74-106); HDL Cholesterol 40 mg/dL (40-60); Potassium 3.4 mmol/L (3.5-5.1); Sodium 138 mmol/L (136-145); Thyroid Stimulating Hormone 1.504 uIU/mL (0.358-3.740); Total Protein 8.0 g/dL (6.4-8.2); Triglycerides 129 mg/dL (<=150); VLDL CHOLESTEROL 25.8 mg/dL
== END 2024-11-23 09:23 | disposition home or self-care (01) ==
LOC: LAB 09:24
PROVIDERS: PCP Nurse Practitioner Family; Visit Provider Nurse Practitioner Family
DX: Z00.00 Encounter for general adult medical examination without abnormal findings (principal)
CPT/HCPCS: 36415; 80053; 80061; 82306; 83036; 83525; 83540; 84436; 84443; 84481; 85025

== ENCOUNTER 2025-01-17 07:34 | Outpatient (REF) | payer MEDICAID, SELFPAY ==
--- OUTSIDE RECORDS SUMMARY | 2025-01-17 13:30 | XMS_ITS | Encounter Summary ---
Author Organization [facility] Healthcare Address [address] [facility] [place] [address] Care Team Providers Care Chief Of Surgery Name Role Phone Alyssa Juarez MD Unavailable [phone] Leon Jerez DO Unavailable [phone] Unallocated, Jeni Provider Primary Care Provi kallie Reason for Referral * Medications - Pending Review Specialty Diagnoses / Procedures Referred By Conterin t Referred To Contact Diagnoses Symptoms, such as flushing, sleeplessness, headache, lack of concentration, associated with the menopause Shauna Pickett PA [address] [place] [address] Phone: tel: fax: Referral ID Status Reason Start Date Expiration Date V isits Requested Visits Authorized [id number] Pending Review 1 1 Reason for Visit * Reason Comments Gynecologic Exam Encounter Details Date Type Department Care Team (Latest Contact Info) Description 01/17/2025 1:30 PM EDT Procedure Visit JENI Kay OBGYN [address] [place] [address] Shauna Pickett PA [address] [place] [address] Well woman exam with routine gynecological exam; [...] inhaler 1 puff, Every 4 hours PRN okirjff-khftcxnknsqjg-tglbsopw (Excedrin Migraine) 250-250-65 MG tablet 2 tablets, [...] nursing note reviewed. Exam conducted with a injector assembler present. Vitals: Estimated body mass index is [...] EDT Procedure Visit JENI Kay OBGYAbel [address] [place] [address] Shauna Pickett PA [address] [place], [facility]11 Scheduled Orders Name Type Priority Associated Diagnoses [...] menopause documented in this encounter Care Teams Chief Of Surgery Relationship Specialty Start Date End [place] Unalloc[place], [place] [address] [place] [address] PCP - General Family Medicine 05/05/24 Alyssa Juarez MD [address] [place] [id number] [phone] Referring Physician Family Medicine 09/24/23 Leon Jerez DO [address] [place], [place] [phone] Referring Physician Neurology 03/04/24 documented as of this encounter
--- OUTSIDE RECORDS SUMMARY | 2025-01-18 07:37 | XMS_ITS | Encounter Summary ---
Author Organization [facility] Address [address] [facility] [place] [address] Care Team Providers Care Blueprinting And Photocopy Supervisor Name Role Phone Alyssa Juarez MD Unavailable [phone] Leon Jerez DO Unavailable [phone] Unallocated, Noms Provider Primary Care Provi kallie Encounter Details Date Type Department Care Team (Late Contact Info) Description 12/10/2023 Orders Only JENI CROCKER [address] [facility] [place] [address] Chanelle Souza LPN [address] [place] [facility]11 Social History Tobacco Use Types Packs/Day Years [...] as of this encounter Plan of Treatment Upcoming Encounters Date Type Department Care Team (Late st Contact Info) Description 01/23/2026 1:00 PM EDT Procedure Visit NOMArabella CROCKER [address] [facility] [place] [address] Shauna Pickett PA [address] [facility] [address] [place], [facility]11 documented as of this encounter Procedures Procedure Name Priority Date/Time Associated Diagnosis Comments PAP SMEAR Routine 08/05/2022 12:00 AM EDT documented in this encounter Results * Pap Smear (08/05/2022 12:00 AM EDT) Swab Cervical swab / Unknown Chelo Nurse Jeni Bcp Ob LAB CYTOLOGY ORDERABLES Final Result EXTERNAL LAB documented in this encounter Visit Diagnoses Not on filedocumented in this encounter Care Teams Blueprinting And Photocopy Supervisor Relationship Specialty Start Date End Date Unallocated, Jeni Dahl MD [facility] [place] [address] PCP - General Family Medicine 05/05/24 Alyssa Juarez MD [address] [place] [phone] Referring Physician Family Medicine 09/24/23 Leon Jerez DO [address] [address] Referring Physician Neurology 03/04/24 documented as of this encounter
--- OUTSIDE RECORDS SUMMARY | 2025-01-18 07:37 | XMS_ITS | Patient Health Record ---
Author Organization [facility] [place] Address [address] [place] [address] Care Team Providers Care Bioinformatics Computer Scientist Name Role Phone Alyssa Juarez Primary Care Provider [phone] Allergies Allergen (clinical drug ingredient) Drug/Non Drug Allergy documented on EMR Reaction Allergy Type Onset Date Status Adhesive rash Allergy Active aspirin Aspirin shaky Drug Allergy Active Results Component Value Reference Range Notes CBC AUTO DIFF Reviewed date:11/23/2024 11:07:03 AM Interpretation: Performing Lab: Notes/Report: [facility] , White Blood Count 6.1 4.0-11.0 10 3/uL Red Blood Count 5.19 4.20-5.40 10 6/uL Hemoglobin 15.6 12.0-16.0 g/dL Hematocrit 45.6 36.0-48.0 % Mean Corpuscular Volume 87.9 81.0-99.0 fL Mean Corpuscular Hemoglobin 30.1 26.7-34.0 pg Mean Corpuscular HGB Conc 34.2 29.9-35.2 g/dL Red Cell Distribution Width 13.0 11.0-15.0 % Platelet Count 307 150-450 10 3/uL Mean Platelet Volume 10.2 9.5-13.5 fL Neutrophils Percent Auto 61.6 43.0-75.0 % Lymphocytes Percent Auto 27.5 20.5-60.0 % Monocytes Percent Auto 7.4 1.7-12.0 % Eosinophils Percent Auto 2.8 0.9-7.0 % Basophils Percent Auto 0.5 0.2-2.0 % Immature Granulocytes Pct Auto 0.2 0.0-0.5 % Neutrophils Absolute Auto 3.8 1.4-6.5 10 3/uL Lymphocytes Absolute Auto 1.7 1.2-3.8 10 3/uL Monocytes Absolute Auto 0.5 0.3-0.8 10 3/uL Eosinophils Absolute Auto 0.2 0.0-0.7 10 3/uL Basophils Absolute Auto 0.0 0.0-0.1 10 3/uL Immature Granulocytes Abs Auto 0.01 0.00-0.03 10 3/uL Performing Lab: see note ML - [facility] FREE T3 Reviewed date:11/23/2024 11:07:03 AM Interpretation: Performing Lab: Notes/Report: [facility] , Free T3 2.82 2.18-3.98 pg/mL Performing Lab: see note ML - [facility] LB GLYCOHEMOGLOBIN A1C Reviewed date:11/23/2024 11:07:03 AM Interpretation: Performing Lab: Notes/Report: [facility] , Glycohemoglobin A1C 6.2 4.5-6.2 % ADA RECOMMENDED LIMIT 4.0 - 6.0 > 7.0 ACTION SUGGESTED ADA THERAPEUTIC TARGET < 7.0 Estimated Average Glucose 131 Performing Lab: see note ML - [facility] LB IRON Reviewed date:11/23/2024 11:07:03 AM Interpretation: Performing Lab: Notes/Report: [facility] , Iron 162.0 50.0-170.0 ug/dL Performing Lab: see note ML - [facility] LB LIPID PROFILE Reviewed date:11/23/2024 11:07:03 AM Interpretation: Performing Lab: Notes/Report: [facility] , Triglycerides 129 <=150 mg/dL Cholesterol 151 <=200 mg/dL HDL Cholesterol 40 40-60 mg/dL <40 mg/dl - HIGH CARDIOVASCULAR RISK > or =60 mg/dl - LOW CARDIOVASCULAR RISK LDL Cholesterol Calculated 85.2 >190 mg/dl VERY HIGH 100-129 mg/dl NEAR OR ABOVE OPTIMAL 160-189 mg/dl HIGH 130-159 mg/dl BORDERLINE HIGH <100 mg/dl OPTIMAL VLDL CHOLESTEROL 25.8 Chol HDL Ratio 3.8 4.4 - 7.1 AVERAGE RISK >11.0 HIGH RISK 7.1 - 11.0 MODERATE RISK 3.3 - 4.4 LOW RISK Performing Lab: see note ML - [facility] LB PROF 14(COMP METB) Reviewed date:11/23/2024 11:07:04 AM Interpretation: Performing Lab: Notes/Report: [facility] , Sodium 138 136-145 mmol/L Potassium 3.4 3.5-5.1 mmol/L Chloride 101 98-107 mmol/L Carbon Dioxide 27.1 21.0-32.0 mmol/L Anion Gap 13.3 Glucose 143 74-106 mg/dL Blood Urea Nitrogen 14.0 7.0-18.0 mg/dL Creatinine 0.86 0.55-1.02 mg/dL Estimated GFR ( Nimo >60 >=60 mL/min/1.73m 2 Estimated GFR (Non- Vivian >60 >=60 mL/min/1.73m 2 BUN Creatinine Ratio 16.3 Calcium 9.1 8.5-10.1 mg/dL Bilirubin Total 1.0 0.2-1.0 mg/dL Aspartate Amino Transferase 35 15-37 U/L Alanine Aminotransferase 71 14-59 U/L Alkaline Phosphatase 114 46-116 U/L Total Protein 8.0 6.4-8.2 g/dL Albumin Level 3.7 3.4-5.0 g/dL Globulin 4.3 Albumin Globulin Ratio 0.9 Performing Lab: see note ML - [facility] LB T4 Reviewed date:11/23/2024 11:07:04 AM Interpretation: Performing Lab: Notes/Report: [facility] , T4 Thyroxine 9.60 4.80-13.90 ug/dL Performing Lab: see note ML - [facility] LB TSH Reviewed date:11/23/2024 11:07:04 AM Interpretation: Performing Lab: Notes/Report: [facility] , Thyroid Stimulating Hormone 1.504 0.358-3.740 u IU/mL Performing Lab: see note ML - [facility] LB INSULIN Reviewed date:11/24/2024 08:31:31 AM Interpretation: Performing Lab: Notes/Report: [facility] , Insulin 45.3 2.6-24.9 uIU/mL [address] [place], [place] [id number] Television Writer: Drew Katz PhD, Phone: [phone] Performed at: [facility] Performing Lab: see note LC - [facility] LB MR cervical spine wo con Reviewed date:05/26/2024 11:58:51 AM Interpretation: Performing Lab: Notes/Report: Source Facility: [place] [address] Magnetic Resonance Report Signed Patient: SHAILESH BLAKE MR#: [id number] : 1970 Acct:[id number] Age/Sex: 53 / F ADM Date: 05/26/24 Loc: MRI Attending Dr: Kimber Dow LANDSCAPE PHOTOGRAPHER Ordering Physician: Kimber Dow NP Date of Service: 05/26/24 Procedure(s): MR cervical spine wo con Accession Number(s): [id number] cc: ALYSSA JUAREZ ; Kimber Dow NP [place] [address] Patient Name: SHAILESH BLAKE MRN: [id number] date: 1970 Sex: F Assigned Patient Location: MRI Current Patient Location: MRI Accession/Order Number: [id number] Exam Date: 05/26/2024 08:42 Report Date: 05/26/2024 [...] Signed By: 05/26/24 1139 DD/ 1136 TD/TT: Linux Developer: [email or web address], Flu A+B IH (Not ye t reviewed by provider) Interpretation: Performing Lab: Notes/Report: COVID neg FLU A neg FLU B neg Control present VITAMIN D 25 [place] Reviewed date:11/23/2024 11:47:17 AM Interpretation: Performing Lab: Notes/Report: [facility] , Vitamin D 26.6 20-<30 ng/mL Vit D insufficient <20 ng/mL Vit D deficient 30-100 ng/mL Vit D sufficient >100 ng/mL Potential Toxicity Performing Lab: see note ML - [facility] LB Reason For Referral No Information Medications Medication SIG (Take, Route, Frequency, Duration) Notes Start Date End Date Status Ingrezza 80 MG 1 capsule Orally Onc day 11/22/2024 Active Chlorthalidone 25 MG 1/2 tablet in the morning with food Orally; Duration: 30 days 06/09/2024 Active busPIRone HCl 30 MG 1 tablet Orally Twic e day 11/22/2024 Active Albuterol Sulfate HFA 108 (90 Base) MCG/ACT INHALE 1 PUFF INTO THE LUNGS EVERY 4 HOURS NEEDED FOR 30 DAYS; Duration: 30 Active Simvastatin 40 MG TAKE 1 TABLET BY ALYSE TH EVERYDAY AT NIGHT; Duration: 30 Active Allergy Active Benztropine Mesylate 0.5 MG 1 tablet Ora lly twice daily; Duration: 30 days Active Cranberry Active Omeprazole 40 MG TAKE 1 CAPSULE BY MO UTH TWICE A DAY; Duration: 30 Active Cinnamon Active Rexulti 4 MG 1 tablet Orally Once a day; Duration: 30 day(s) Active Flaxseed Oil Active Gen Active metFORMIN HCl 500 MG 1 tablet with a samson l Orally Once a day; Duration: 30 days Active Mupirocin 2 % 1 application Coater Brake Linings ally Twice a day; Duration: 5 days 11/22/2024 Active Hair Skin & Nails Ac tive Fluticasone Propionate 50 MCG/ACT 1 spray in each nostril Nasally Once a day; Duration: 30 day(s) PRN Active Venlafaxine HCl ER 150 MG 2 capsule with food Orally Once a day; Duration: 30 days Active Turmeric Active Gabapentin 400 MG 1 capsule Orally 2-3 times daily; Duration: 30 days Active Apple Cider Vinegar Active Vitamin D3 50 MCG (1999 UT) 1 capsule Or ally Once a day; Duration: 30 day(s) 11/23/2024 Active Potassium Chloride Annabel ER 10 MEQ 1 tablet with food Orally Twice a day; Duration: 30 days 11/23/2024 Active Social History Tobacco Use: Social History [...] Problem Status W/U Status Risk Notes Problem Obstructive sleep apnea syndrome (disorder) (15146745) Obstructive sleep apnea (adult) (pediatric) (G47.33) Active confirmed Problem Overweight (375951837) Overweight (E66.3) Active confirmed Problem 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, 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) Active confirmed Problem Snoring (33608069) Snoring (R06.83) Active conf irmed Problem Body mass index 40+ - severely obese (921513693) Body mass index (BMI) 45.0-49.9, adult (Z68.42) Active confirmed Problem Gastroesophageal reflux disease (273720272) GERD (gastroesophageal reflux disease) (K21.9) Active confirmed Problem Dyspnea (472822158) SOB (shortne ss of breath) (R06.02) Active confirmed Problem Hypertension (25367961) HTN (hypertension) (I10) Active confirmed Problem Arthritis (2623900) Arthritis (M19.90) Active c onfirmed Problem Urinary tract infectious disease (48344911) UTI (urinary tract infection) (N39.0) Active confirmed Problem Vitamin D deficiency (73082900) Vitamin D deficiency (E55.9) Active confirmed Problem Migraine (11915736) Migraine (G43.909) Active c onfirmed Problem Irritable bowel syndrome (76668854) IBS (irritable bowel syndrome) (K58.9) Active confirmed Problem Weight gain (613584455) Weight gain (R63.5) Active confirmed Problem Mixed anxiety and depressive disorder (069661688) Depression with anxiety (F41.8) Active confirmed Problem Chronic migraine (910497999) Chronic migraine (G43.709) Active confirmed Problem Epigastric discomfort (542270325) Epigastric discomfort (R10.13) Active confirmed Problem Canker sore (737790334) Canker sore (K12.0) Active confirmed Problem Hyperinsulinemia (08228391) Hyperinsulinemia (E16.1) Active confirmed Problem Sore mouth (886178412) Sore mouth (K13.79) Active confirmed Problem Menopausal hot flushes (948166202) Menopausal hot flushes (N95.1) Active confirmed Problem Somnolence (41538658) Somnolence, daytime (R40.0) Active confirmed Problem Prediabetes (658070152) Pre-diabetes (R73.03) Active confirmed Problem Electrocardiogram abnormal (499013237) Abnormal electrocardiogram during exercise stress test (R94.31) Active confirmed Problem Osteoarthritis of knee (779272041) Osteoarthritis of left knee (M17.12) Active confirmed Problem COVID-19 (132298451) COVID-19 (U07.1) Active confirmed Problem Morbid obesity (317689205) Class 3 obesity (E66.01) Active confirmed Vital Signs Temperature 98.2 degrees Fahrenheit 06/09/2024 Blood pressure diastolic 88 mm Hg 11/22/2024 Height 68 in 11/22/2024 Blood pressure systolic 122 mm Hg 11/22/2024 Weight 346.0 lbs 11/22/2024 BMI 52.6 kg/m2 11/22/2024 Encounters Encounter Location Date Provider Diagnosis [address] [place] [address] 06/23/2024 Alyssa Juarez Class 3 obesity E66.01 [facility] [address] [place] [address] 06/09/2024 Alyssa Juarez HTN (hypertension) I10 ; Class 3 obesity E66.01 ; URI (upper respiratory infection) J06.9 and Vitamin D deficiency E55.9 [facility] [address] [place] [address] 07/21/2024 Alyssa Juarez Class 3 obesity E66.01 and Canker sore K12.0 [place] [address] [facility] [place] [address] 08/23/2024 Alyssa Juarez Class 3 obesity E66.[address] [place] [address] 11/22/2024 Alyssa Juarez Wellness examination Z00.00 and IBS (irritable bowel syndrome) K58.9 [place] [address] [facility] [place] [address] 03/11/2024 Alyssa Juarez [facility] [address] [place] [address], [place] [address] 11/23/2024 Alyssa Juarez Vitamin D deficiency E55.[address] [place] [address] 11/23/2024 Alyssa Juarez Assessments Encounter Date Diagnosis (ICD Code) Assessment Notes Treatment Notes Treatment Clinical Notes Section Notes 06/23/2024 Class 3 obesity (ICD-10 - E66.01) [...] recent mammogram due for pap, fu Chelo 11/23/2024 Vitamin D deficiency (ICD-10 - E55.9) 06/09/2024 URI (upper respiratory infection) (ICD-10 - [...] DIFF 11/22/2024 Next Appt Details Provider Name:Alyssa Bell Kg vincent, 02/22/2025 10:30:00 AM, [address] [facility], [place], [address], Insurance Providers Payer Name Payer Address Payer Phone Subscriber Number Group Number Insured Name Patient Relationship to Insured Coverage Start Date Coverage End Date [employer] [place] [employer] [address] [address] [place] [address] [phone] [id number] Shailesh Blake Self - patient is the [...]
--- OUTSIDE RECORDS SUMMARY | 2025-01-18 07:37 | XMS_ITS | Clinical Summary ---
Author Organization [facility] Address [address], [address] [place] [address] Care Team Providers Care Behaviour Support Teacher Name Role Phone Winston Cardona MD Primary Care Provider + Social History Tobacco Use Types Packs/Day Years Used Date Smoking Tobacco: Never Assessed Comments Unknown Sex and Gender Information Value Date Recorded Sex Assigned at Not on file Legal Sex Female 1:51 PM EST Gender Identity Not on file Sexual Orientation Not on file Plan of Treatment Not on file Care Teams Behaviour Support Teacher Relationship Specialty Start Date End Date Winston Cardona MD PCP - General 11/08/14
--- OUTSIDE RECORDS SUMMARY | 2025-01-18 07:37 | XMS_ITS | Clinical Summary ---
Author Organization [facility] Healthcare Address [address] [place] [address] Care Team Providers Care Welding Pantograph Operator Name Role Phone Alyssa Juarez MD Unavailable [phone] Leon Jerez DO Unavailable [phone] Unallocated, [facility] Provider Primary Care Provi kallie Allergies Active Allergy Reactions Criticality Noted Date Comments Aspirin 09/24/2023 Other Reaction(s): shaky Wound Dressing Adhesive Rash Low 09/24/2023 Medications cyanocobalamin (Vitamin B-12) 1000 MCG [...] 6 each 5 5 03/19/20 25 Active Estradiol-Proges terone (Bijuva) 0.5-100 MG capsuleIndicatio ns:Symptoms, such as flushing, sleeplessness, headache, lack of concentration, associated with the menopause Take 50 mg by mouth at bedtime 30 capsule 3 5 02/17/20 25 Active Active Problems Problem Noted Date [...] Encounters Date Type Department Care Team Description 01/17/2025 1:30 PM EDT Procedure Visit [facility] [place] [address] Shauna Pickett PA Well woman exam with routine gynecological exam; Encounter for screening mammogram for malignant neoplasm of breast; Osteoporosis, post-menopausal ; Asymptomatic menopausal state; Symptoms, such as flushing, sleeplessness, headache, lack of concentration, associated with the menopause 01/17/2025 Bamboo flowsheet [facility] Rahul CROCKER [address] [place] [address] [place] [address] Shauna Pickett PA from Last 3 Months Family History Medical [...] Pressure 130/78 01/17/2025 1:18 PM EDT Pulse 79 09/15/2024 9:55 AM EDT Temperature - - Respiratory Rate 18 09/25/2023 5:44 AM EDT Oxygen Saturation 99% 06/03/2024 1:19 PM EST Inhaled Oxygen Concentration - - Weight 154 kg (340 lb) 01/17/2025 1:18 PM EDT Height 172.7 cm (5' 8 ) 01/17/2025 1:18 PM EDT Body Mass Index 51.7 01/17/2025 1:18 PM EDT Plan of Treatment Upcoming Encounters Date Type Department Care Team (Late st Contact Info) Description 01/23/2026 1:00 PM EDT Procedure Visit JENI Kay OBGYN [address] [place] [address] Shauna Pickett PA [address] [facility] [address] [place], [place] [address] Health Maintenance Due Date Last Done Comments [...] Cervical swab / Unknown Chelo Nurse Noms Bcp Ob LAB CYTOLOGY ORDERABLES Final Result EXTERNAL LAB from Last 3 Months or Most Recently Relevant to [place] [address] [facility] MEDICAID [place] Care Teams Welding Pantograph Operator Relationship Specialty Start Date End Date Unallocated, Noms Provider, [facility] [place] [address] PCP - General Family Medicine 05/05/24 Alyssa Juarez MD [address] [place] [address] Referring Physician Family Medicine 09/24/23 Leon Jerez DO [address] [place] [address] Referring Physician Neurology 03/04/24
--- OUTSIDE RECORDS SUMMARY | 2025-01-18 07:37 | XMS_ITS | Clinical Summary ---
Author Organization [facility] Address [id number] [address] [place] [address] Care Team Providers Care Hydraulic Plumber Helper Name Role Phone Unavailable Primary Care Provider [...]
--- OUTSIDE RECORDS SUMMARY | 2025-01-18 07:37 | XMS_ITS | Clinical Summary ---
Author Organization [facility] Address [address] [place] [address] Care Team Providers Care Radiology Teacher Name Role Phone Unavailable Primary Care Provider Unavailabl e Social History Tobacco Use Types Packs/Day Years Used Date Smoking Tobacco: Never Assessed [place] Safety & Environment Answer Date Rec orded [...]
--- OUTSIDE RECORDS SUMMARY | 2025-01-18 07:37 | XMS_ITS | Encounter Summary ---
Author Organization [facility] Address [address] [facility] [place] [address] Care Team Providers Care Foreign Service Officer Name Role Phone Alyssa Juarez MD Unavailable [phone] Leon Jerez DO Unavailable [phone] Unallocated, Jeni Provider Primary Care Provi kallie Encounter Details Date Type Department Care Team (Late st Contact Info) Description 02/12/2024 Orders Only KRISTI VALLE [address] [place] [address] Odessa Lancaster DO Social History Tobacco Use [...] 01/23/2026 1:00 PM EDT Procedure Visit JENI Valle OBGYN [address] [facility] [place] [address] Shauna Pickett PA [address] [facility] [address] [place], [facility] documented as of this encounter Procedures Procedure Name Priority Date/Time Associated Diagnosis Comments EMG AND NERVE CONDUCTION STUDY Routine 06/21/2013 1:58 PM EST documented in this encounter Results * EMG AND NERVE CONDUCTION STUDY (06/21/2013 1:58 PM EST) Odessa [place] DO NEUROLOGY ORDERABLES Final Resu lt documented in this encounter Visit Diagnoses Not on filedocumented in this encounter Care Teams Foreign Service Officer Relationship Specialty Start Date End Date Unallocated, Noms Provider, [address] [place] [address] PCP - General Family Medicine 05/05/24 Alyssa Juarez MD [address] [place] [id number] Referring Physician Family Medicine 09/24/23 Leon Jerez DO [address] [id number] Referring Physician Neurology 03/04/24 documented as of this encounter
--- OUTSIDE RECORDS SUMMARY | 2025-01-18 07:37 | XMS_ITS | Encounter Summary ---
Author Organization [facility] Address [address] [facility] [place] [address] Care Team Providers Care Tractor Technician Name Role Phone Alyssa Juarez MD Unavailable [phone] Leon Jerez DO Unavailable [phone] Unallocated, Noms Provider Primary Care [facility] kallie Encounter Details Date Type Department Care Team ([facility] [address] Contact Info) Description 01/17/2025 Bamboo flowsheet JENI CROCKER [address] [facility] [facility] [place] [address] Shauna Pickett PA [address] [facility] [address] [place], [place] [address] Social History Tobacco Use Types Packs/Day Years [...] Encounters Date Type Department Care Team (Late Contact Info) Description 01/23/2026 1:00 PM EDT Procedure Visit JENI CROCKER [address] [facility] [facility] [place] [address] Shauna Pickett PA [address] [facility] [address] [place] [id number] documented as of this encounter Visit Diagnoses Not on filedocumented in this encounter Care Teams Tractor Technician Relationship Specialty Start Date End Date Unallocated, Noms [place], [address] [place] [address] PCP - General Family Medicine 05/05/24 Alyssa Juarez MD [facility] [place], [place] [phone] Referring Physician Family Medicine 09/24/23 Leon Jerez DO [address] [address] Referring Physician Neurology 03/04/24 documented as of this encounter
--- OUTSIDE RECORDS SUMMARY | 2025-01-18 07:38 | XMS_ITS | CCD ---
Author Organization [facility] Care Team Providers Care Cafeteria Worker Name Role Phone ELTAHAWY, EHAB A Admitting Unavailable ELTAHAWY, EHAB A Attending Unavailable MAXWELL, ALYSSA Primary Care Unavailable MAXWELL, ALYSSA Referring Unavailable ALYSSA ARREOLA S Primary Care Physician Asif Cox Unavailable Destini Kilgore Unavailable Mellissa Strange Unavailable MATTHIAS Arreola Alyssa Lesly Primary Care Provider MD Asif Cox Attending Provider [phone] MATTHIAS Arreola Alyssa Lesly Primary Care Provider MD Asif Cox Attending Provider MATTHIAS Arreola Alyssa Lesly Primary [...] ADONAY Arreola-Jess Alyssa Lesly Primary Care Provider [phone] ADONAY Kilgore Attending Provider [phone] MATTHIAS Arreola Alyssa Lesly Primary Care Provider [phone] MD Alexey Maki Attending Provider [phone] MD Asif Cox Attending Provider [phone] Dioni Flores Primary Care Physician [phone] MATTHIAS Arreola Alyssa Lesly Primary Care Provider [phone] MD Alexey Maki Attending Provider [phone] MATTHIAS Arreola Alyssa Lesly Primary Care Provider MD Asif Cox Attending Provider MATTHIAS Arreola Alyssa Lesly Primary Care Provider MD Alexey Maki Attending Provider MATTHIAS Arreola Primary Care Provider MD Alexey Maki Attending Provider [phone] ADONAY Kilgore Attending Provider MATTHIAS Arreola Primary Care Provider [phone] MD Alexey Maki Attending Provider MD Alexey [...] E Attending Unavailab le THERESA, JOSE ELIAS LORENZONIFER E Attending Unavailab le GASTON, Hermilo R Admitting Unavailable GASTON, Hermilo R Attending Unavailable GASTON, Hermilo R Referring Unavailable MD Alexey Maki Attending Provider MD Asif Cox Attending Provider Joel Jerez DO Unavailable Unallocated MD, Noms Provider Primary Care Provi kallie Maxwell LAB DIRECTOR-C, Alyssa Grace Primary Care Provider Alexey Maki MD Attending Provider Maxwell URIAS-C, Alyssa Grace Primary Care Provider [phone] Alexey Maki MD Attending Provider [phone] JOSE ELIAS MIRAMONTES Attending Unavailab le THERESA, JOSE ELIAS Buenrostro Attending Unavailab le THERESA, PA-C KAYY E Admitting Unavailab robert Arreola LAB DIRECTOR-C, Alyssa Grace Primary Care Provider [phone] Alexey Maki MD Attending Provider Alyssa Arreola Lesly Primary Care Unavailable Asif Cox Attending Unavailable Asif Cox Admitting Unavailable Alexey Maki Attending Unavailab Alexey Bay Admitting Unavailab robert Arreola, Alyssa Lesly Primary Care Unavailable Maxwell LAB DIRECTOR-C, Alyssa Lesly Primary Care Provider [phone] Alexey Maki MD Attending Provider Asif Cox MD Attending Provider [phone] Joel Jerez DO Unavailable [phone] CHEYANNE SCHILLING Attending Unavailable SHAKIR, CHEYANNE Attending Unavailable CHEYANNE SCHILLING Attending Unavailable JOEL JEREZ Attending Unavailable SHAKIR, CHEYANNE Attending Unavailable SHAUNA PICKETT Attending Unavailable TANK LANCASTER Attending Unavailable SHAKIR, CHEYANNE Attending Unavailable Allergies Allergy Classification Reported Allergen(s) Allergy Type Date of Onset Reaction(s) Facility (20 sources) Aspirin; Translations: [aspirin] Drug Allergy 2 Tremor (finding) [place] Other Comment on above: tremors (15 sources) Desonide; Translations: [desonide topical] Drug Allergy 3 Unknown [facility] (11 sources) Tape 1 Drug allergy Eruption of skin (disorder) [facility] Comment on above: adhesive (19 sources) Adhesive Tape; Translations: [adhesive tape] Allergy to substance [address] [facility] (2 sources) Aspirin Drug Allergy 3 [facility] Repository (20 sources) Aluminum aspirin Drug Allergy [address] [facility] (20 sources) Wound Dressing Adhesive Propensity to adverse reactions 4 [facility] (2 sources) Adhesive Tape; Translations: [Tape] Propensity to adverse reactions (disorder) [facility] Repository (1 source) Aspirin Drug Allergy [address] [facility] Repository Medications Current Medications Medication Drug [...] 70 mg Start Date: 08/09/21 Status: Ordered [id number] 200 actuat albuterol 0.09 mg/actuat metered dose inhaler (20 sources) beta2-Adrenergic Agonist Start: 07-08-2024 Albuterol Sulfate 90 mcg/actuation HFA aerosol inhaler Active 1 INH INHALATION Every 6 hours July 08, 2024 12:00am Complies with drug therapy Start: 05-28-2023 Albuterol (Eqv -ProAir HFA) Inhalation, [...] PO Twice daily March 06, 2021 1:00am Complies with drug therapy Start: 04-23-2019 benztropine Re fills(s) 0 Start [...] procedure, # 14 cap(s), Refills(s) 0, Pharmacy: [facility]/pharmacy #[id number], 173, cm, 07/15/23 7:46:00 EDT, Height/Length Dosing, 142, kg, 05/28/23 16:07:00 EST, Weight Dosing Start Date: 07/15/23 Status: Ordered Start: 10-09-2021 End: 10-16-2021 take 1 capsule by mouth every twelve hours Keflex 500 mg Cap 500 mg = 1 cap(s), Oral, q12hr, X 7 day(s), # 14 cap(s), Refills(s) 0, Pharmacy: [facility]/pharmacy #[id number], 173, cm, 08/09/21 11:09:00 EDT, Height/Length [...] 70 mg Start Date: 08/09/21 Status: Ordered Estradiol / Progesterone (1 source) Progesterone, Estrogen Start: 025 End: 025 take 0.5-100 mg by mouth at bedtime Estradiol-Progeste ruth (Bijuva) 0.5-100 MG capsule Indications: Symptoms, such as flushing, sleeplessness, headache, lack of concentration, associated with the menopause Take 50 mg by mouth at bedtime 30 capsule 3 01/17/2025 02/16/2025 Active fluticasone 0.05 mg/inh Nasal [place] (9 sources) Start: 020 fluticasone 0.05 mg/inh Nasal [place] Nasal, Daily, Refill(s) 0 Start Date: 05/03/19 Status: Ordered 1 ml galcanezumab-gnlm 120 mg/ml auto-injector (20 sources) Start: 025 inject 120 mg by subcutaneous injection every month Galcanezumab-Gnlm (Emgality Pen) 120 mg/mL pen injector Active 120 MG SUBCUT every month July 08, 2024 12:00am Complies with drug therapy Start: 09-25-2023 End: 09-24-2024 galcanezumab (Emgality) 120 MG/ML auto-injector Indications: Migraine without aura and without status migrainosus, not intractable (CMS/HCC) , Chronic migraine without aura without status migrainosus, not intractable (CMS/HCC) Inject 1 Syringe (120 mg) under the skin every 30 (thirty) days 1.12 mL 09/25/2023 09/24/2024 Active lamoTRIgine 100 mg oral [...] MG PO Daily March 06, 2021 1:00am Complies with drug therapy Start: 03-06-2021 take 1 tablet by elyssa th once daily Lamotrigine 200 mg tablet Active 200 MG PO Daily March 06, 2021 1:00am Complies with drug therapy take 1 tablet by elyssa th every [...] Status: Ordered mecobalamin 1 mg chewable tablet (3 sources) Start: 07-08-2024 take 1 tablet by mouth once daily Mecobalamin (Vitamin B12) 1,000 mcg tablet,chewable Active 1000 MCG PO Daily July 08, 2024 12:00am Complies with drug therapy meloxicam (4 sources) Nonsteroidal Anti-inflammatory Drug Start: 04-23-2019 meloxicam Oral, Daily, Refills(s) 0 Start Date: 04/23/19 Status: Ordered metFORMIN hydrochloride 500 mg oral tablet (20 sources) Biguanide Start: 01-02-2024 take 1 tablet by mouth once daily Metformin 500 mg tablet Active 500 MG PO Daily January 02, 2024 12:00am Complies with drug therapy Multivitamin (Daily Multi-Vitamin) tablet (11 sources) Start: 06-19-2023 take 1 tablet by mouth once daily Multivitamin (Daily Multi-Vitamin) tablet Active 1 TAB PO Daily June 19, 2023 1:00am Complies with drug therapy Start: 06-19-2023 take 1 tablet by elyssa [...] Start: 05-23-2024 take 1 capsule by mouth in the morning omeprazole (PriLOSEC) [address] capsule Take 40 mg by mouth in the morning and 40 mg before bedtime. 05/23/2024 Active Start: 05-28-2023 End: 03-10-2024 take 1 capsule [...] mg disintegrating oral tablet (20 sources) Start: End: 025 Rimegepant (Nurtec Odt) 75 mg tablet,disintegrating Active 75 MG PO Every 48 hours June 16, 2024 1:00am Complies with drug therapy simvastatin 40 mg oral tablet (20 sources) HMG-CoA Reductase Inhibitor Start: take 1 tablet by mouth once daily in the evening Simvastatin 40 mg tablet Active 1 TAB PO Daily June 19, 2023 1:00am FreeTextSi tablet in the evening Orally Once a day; Note: Source Status: Taking; Provider: Jackie Gold ( ) Complies with drug therapy spironolactone 50 mg oral tablet (20 sources) Aldosterone Antagonist Start: take 1 mg by mouth twice daily spironolactone 50 mg Tab mg tab(s), Oral, BID Start Date: 05/28/23 Status: Ordered Start: 03-06-2021 End: 06-16-2024 take 1 tablet by mouth once daily spironolactone (Aldactone) 50 MG tablet [...] Sep, Active valbenazine 80 mg oral capsule (9 sources) Start: 05-26-2024 take 1 capsule by mouth once daily Ingrezza 80 MG capsule Take 80 mg by mouth Daily 05/26/2024 Active 24 hr venlafaxine 150 mg extended release [...] MG PO Daily June 19, 2023 10:13am Complies with drug therapy Start: 03-06-2021 End: 06-19-2023 take 225 mg [...] Active Zavegepant HCl (Zavzpret) 10 MG/ACT solution (4 sources) Start: 09-20-2024 End: 03-19-2025 Zavegepant HCl (Zavzpret) 10 MG/ACT solution Indications: Migraine without aura and without status migrainosus, not intractable Administer 10 mg into affected nostril(s) Daily as needed (migraine) Take no more than 1 time in 24 hours. Take no more than six doses per month. 6 each 09/20/2024 03/19/2025 Active Start: 09-20-2024 End: 03-19-2025 Zavegepant HCl (Zavzpret) 10 MG/ACT solution Indications: Migraine without aura and without status migrainosus, not intractable (CMS/HCC) Administer 10 mg into affected nostril(s) Daily as needed (migraine) Take no more than 1 time in 24 hours. Take no more than six doses per month. 6 each 09/20/2024 03/19/2025 Active zonisamide 100 mg oral capsu le [...] mg / caffeine 40 mg oral tablet (18 sources) Barbiturate, Central Nervous System Stimulant, Methylxanthine Start: 03-06-2021 End: 08-29-2021 Klfkdrsbjy-Nickwtiliuquk-Ynt f 50-325-40 mg tablet Discontinued 1 TAB [...] list cleanup) azithromycin 250 mg oral tablet (18 sources) Macrolide Antimicrobial Start: 03-06-2021 End: 08-15-2021 Azithromycin 250 mg tablet Discontinued MG March 06, 2021 1:00am August 15, 2021 [...] Discontinued 2 GM TOPICAL Four times daily December 11, 2023 10:59am July 08, 2024 [...] Active docusate sodium 50 mg / sennosides, chcf 8.6 mg oral tablet (20 sources) Start: [...] Start: 05-03-2019 fluticasone 0. 05 mg/inh Nasal [place] Nasal, Daily, Refill(s) 0 Start Date: 05/03/19 [...] July 16, 2023 11:04am Start: 05-28-2023 End: 09-29-2024 take 1 capsule by mouth three times [...] list cleanup) methylPREDNISolone 4 mg oral tablet (16 sources) Corticosteroid Start: 06-19-2023 End: 01-02-2024 take [...] list cleanup) take 2 tablets by mo [facility] every twenty-four hours Paxil 30 [...] 2023 10:11am take 1 tablet by elyssa every twenty-four hours Maxalt 10 MG 1 tablet Orally Once a day Not-Taking/PRN solifenacin succinate 5 mg oral tablet (9 sources) Cholinergic Muscarinic Antagonist take 1 tablet by mouth every twenty-four hours VESIcare 5 MG 1 tablet Orally Once a day Not-Taking sucralfate 1000 mg oral tablet (18 sources) Aluminum Complex Start: 03-06-20 End: 06-19-19 [...] Date Documented Da te Episodic/Chronic Abdominal pain (18 sources) Lower abdominal pain; Translations: [Lower abdominal [...] [ENC SCREENING HUMAN PAPILLOMAVIRUS] Onset: 3 Episodic Menopausal disorders (2 sources) Menopausal symptom; Translations: [Menopausal and female climacteric states] 01-17-2025 Chronic Mood disorders (20 sources) Depressive disorder; Translations: [Major depressive disorder, single episode, unspecified] Onset: 2 04-23-2019 Chronic Mood disorders (1 source) Mood disorders; Translations: [DEPRESSION UNSPECIFIED] Onset: 3 Osteoarthritis (20 sources) Arthritis; Translations: [Osteoarthritis of knee] Onset: 3 04-23-2019 Chronic Osteoporosis (1 source) Postmenopausal osteoporosis; Translations: [Age-related osteoporosis without current pathological fracture] 01-17-2025 Chronic Other aftercare (1 source) Other fdc (current) drug therapy; 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] Onset: 3 Episodic Other aftercare (10 sources) Polypharmacy ; Translations: [Other oysterman (current) drug therapy] 02-11-2024 Episodic Other connective [...] conditions (not mental disorders or infectious disease) (14 sources) Encounter for screening for malignant neoplasm [...] Translations: [ASYMPTOMATIC MENOPAUSAL STATE] Onset: 3 Episodic Residual codes; unclassified (1 source) Menopause present; Translations: [Asymptomatic menopausal state] 01-17-2025 Episodic Screening and history of mental health [...] Results Test Name Value Interpretation Reference Range [facility] Urineon 09-19-2024 Bacteria identified Cx Nom (U) Microbiology PROCEDURE: Urine Culture [R1] SOURCE: U CleanCatch BODY SITE: COLLECTED DATE/TIME: 09/17/2024 12:54 EDT RECEIVED DATE/TIME: 09/17/2024 17:16 EDT START DATE/TIME: 09/17/2024 17:16 EDT FREE TEXT SOURCE: THERESA MOCTEZUMA, KAYY MIRAMONTES PA-C, KAYY Buenrostro FINAL [...] Antibiotic LUIZ Dilutn LUIZ Interp LUIZ Dilutn LIUZ Interp Ampicillin <=8 R* >16 R Ampicillin/ [...] Locations R1: This test was performed at: [facility], [address] [place] [address], [phone]- , , [facility] Comment on above: Performed By: #### [id number] #### [facility] [address] [place] [address] Ambulatory Visit Summaryon 0 09-17-2024 Ambulatory Visit [...] solution) fluticasone nasal (fluticasone 0.05 mg/inh Nasal [place]) gabapentin (gabapentin 400 mg Cap) lamotrigine (lamotrigine [...] fluticasone nasal (fluticasone 0.05 mg/ inh Nasal [place]) Nasal Inhalation Every day Unchanged gabapentin (gabapentin [...] for choosing us for your care. Normal [facility] - Drug toxicology on 08-04-2024 Amphetamines Ql (U) Negative [facility] Benzodiazepines Ql (U) Negative [facility] Cocaine Ql (U) Negative [facility] Opiates Ql (U) Negative [facility] Phencyclidine Ql (U) Negative [facility] No Panel Informationon 08-04 Urine Barbiturates Screen Negative [facility] Urine Marijuana (THC) Screen Negative [facility] MR Cervical spine WO contras ton 05-26-[address] [address] Magnetic Resonance Report Signed Patient: SHAILESH BLAKE MR#: [id number] : 1970 Acct:[id number] Age/Sex: 53 / F ADM Date: 05/26/24 Loc: MRI Attending Dr: Cheyanne Schilling LAB DIRECTOR Ordering Physician: Cheyanne Schilling NP Date of Service: 05/26/24 Procedure(s): MR cervical spine wo con Accession Number(s): [id number] cc: ALYSSA ARREOLA Sarah NP [address] [address] Patient Name: SHAILESH BLAKE MRN: [id number] date: 1970 Sex: F Assigned Patient Location: MRI Current Patient Location: MRI Accession/Order Number: [id number] Exam Date: 05/26/2024 08:42 Report Date: 05/26/2024 [...] Signed By: 05/26/24 1139 DD/ 1136 TD/TT: Neonatal Intensive Care Unit Nurse: [facility] Radiology, Radiologist, - 05/26/2024 [place] [address] Magnetic Resonance Report Signed Patient: SHAILESH BLAKE MR#: [id number] : 1970 Acct:[id number] Age/Sex: 53 / F ADM Date: 05/26/24 Loc: MRI Attending Dr: Cheyanne Schilling NP Ordering Physician: Cheyanne Schilling NP Date of Service: 05/26/24 Procedure(s): MR cervical spine wo con Accession Number(s): [id number] cc: ALYSSA ARREOLA ; Cheyanne Schilling NP [place] [address] Patient Name: SHAILESH BLAKE MRN: [facility]:[id number] date: 1970 Sex: F Assigned Patient Location: MRI Current Patient Location: MRI Accession/Order Number: [id number] Exam Date: 05/26/2024 08:42 Report Date: 05/26/2024 [...] Signed By: 05/26/24 1139 DD/ 1136 TD/TT: Neonatal Intensive Care Unit Nurse: [facility] [employer] Radiology Study observation (narrative) [facility] [employer] MR Cervical spine WO contras tOrdered By: Radiologist Radiology on 05-26-2024 [facility] L-3 GCScar e Work Phone: MR lumbar spine wo conon MR lumbar spine wo con [facility] Main [place] [address] [place] [address] MRI Report Signed Patient: Shailesh Blake MR#: [id number] : 1970 Acct:[id number] Age/Sex: 53 / F ADM Date: 02/25/24 Loc: MR Room: Type: [facility] [address] Attending Dr: Asif Cox MD Copies to: [...] Benito Blake M.D.02/25/2024 3:32 PM Dictation Location: [place] [address] Transcribed By: [facility] 02/25/24 153 Dictated By: Benito Blake DO 02/25/24 152 Signed By: 02/25/241531 Normal [facility] EMG 2 Extremitieson [...] Locations R1: This test was performed at: [facility], [address] [place] [address], [facility]- , , [facility] Comment on above: Performed By: #### [id number] #### [facility] [address] [place] [address] Ambulatory Visit Summaryon 1 Ambulatory Visit Summary [...] solution) fluticasone nasal (fluticasone 0.05 mg/inh Nasal [place]) gabapentin (gabapentin 400 mg Cap) lamotrigine (lamotrigine [...] fluticasone nasal (fluticasone 0.05 mg/ inh Nasal [place]) Nasal Inhalation Every day Unchanged gabapentin (gabapentin [...] for choosing us for your care. Normal [facility] Urology Office/Clinic Noteon 02-12-2024 Urology Office/Clinic [...] E&M of Est. Patient Moderate 30-39 Min 42713 2. OAB (overactive bladder) (N32.81: Overactive bladder) [...] 146.2, kg, 02/12/24 9:11:00 EDT, Weight Dosing 54657 Measure Post Void residual urine and/or bladder capacity by US- non-imaging E&M of Est. Patient Moderate 30-39 Min 37352 Urine Culture Urnls Dip Stick Auto w/o Microscopy POC 01047 3. Mixed incontinence (N39.46: Mixed incontinence) Marked improvement in OAB/UUI after Botox 07/15/23. See #1 and #2. Knows Botox won't help w SYLVIE. Encouraged home PFPT. Ordered: sulfamethoxazole-trim ethoprim, 1 tab(s), Oral, BID for 7 day(s), 14 tab(s), Refill(s) 0, [id number], 173, cm, 02/12/24 9:11:00 EDT, Height/Length Dosing, 146.2, kg, 02/12/24 9:11:00 EDT, Weight Dosing E&M of Est. Patient Moderate 30-39 Min 03152 Follow-up With When Contact Information THERESA MOCTEZUMA, KAYY Buenrostro, URL [address] [place] [address] Business (1) Additional Instructions: pending [...] Tab, Oral, BID fluticasone 0.05 mg/inh Nasal [place], Nasal, Daily gabapentin 400 mg Cap, Oral, TID lamotrigine 100 mg Tab, Oral, BID lamotrigine 200 mg Tab, Oral, BID meclizine 25 mg (more content not included)... [facility] Comment on above: Result Comment: Elec tronically Signed By: KAYY MIRAMONTES PA-C\.br\Date and Time Signed: 02/12/24 09:45 EDT Provider Letteron 12-22-2023 Provider Letter Provider Letter December 22, [address] [phone] : 1970 Dear Shailesh , We have [...] [facility] [address], [place] [address] [facility] Provider Letteron 11-19-2023 Provider Letter Provider Letter November 19, [address] [phone] : 1970 Dear Shailesh, We have been [...] [facility] [address], [place] [address] [facility] Ambulatory Visit Summaryon 0 07-29-2023 Ambulatory [...] solution) fluticasone nasal (fluticasone 0.05 mg/inh Nasal [place]) gabapentin (gabapentin 400 mg Cap) lamotrigine (lamotrigine [...] Up with THERESA MOCTEZUMA, ALMA NAVARRETE When: In 6 months Comments: Pt to call and cancel if asymptomatic. Where: [address] [place] [address] Medications What How Much When Instructions Unchanged [...] fluticasone nasal (fluticasone 0.05 mg/ inh Nasal [place]) Nasal Inhalation Every day Contact prescribing physician [...] empty b (more content not included)... Normal [facility] Patient Educationon 07-29-19 Patient Education Obstetrics and Gynecology Overactive Bladder, [...] health care provider. General instructions ? Take ujmy-vir-kwtbjae and prescription medicines only as told by [...] monitor yo (more content not included)... Normal [facility] Urology Office/Clinic Noteon 07-29-2023 Urology Office/Clinic [...] see #1 Follow-up With When Contact Information KAYY MIRAMONTES PA-C, URL In [address] [place] [address] [place] [address] Additional Instructions: Pt to call and cancel [...] Tab, Oral, BID fluticasone 0.05 mg/inh Nasal [place], Nasal, Daily gabapentin 400 mg Cap, Oral, [...] vaccine, inactivated 10/07/2021 Recorded SARSCoV2 mRNA(marco a ucgerson) vac 10/07/2021 Recorded SARS-CoV-2 (COVID-19) mRNA BNT-162b2 vax 2020 Recorded SARS-CoV-2 (COVID-19) mRNA BNT-162b2 vax 12/02/2020 Recorded influenza virus vaccine, inactivated - Not Given Postpone (more content not included)... [facility] Comment on above: Result Comment: Elec tronically Signed By: KAYY MIRAMONTES PA-C\.br\Date and Time Signed: 07/29/23 15:33 EDT\.br\Electronically Co-Signed By: Caren Shaw MA\.br\Date and Time Co-Signed: 07/29/23 15:22 EDT Consent for Procedure/Surger yon 07-15-2023 Consent for Procedure/Surgery [id number]# 1.00TIFF [facility] Consent for Treatmenton 03-1 Consent for Treatment [id number]#1 .00TIFF [facility] IntraOperative Documentson 0 07-15-2023 IntraOperative Documents [id number]# 1.00TIFF [facility] Main OR Intraoperative Recor don 07-15-2023 Main OR Intraoperative Record IntraOp Document Type FTURO Summary Primary Physician: Hermilo GASTON MD Finalized Date/Time: 07/15/23 08:54:30 Pt. Name: SHAILESH BLAKE/Sex: 1970 Female Med Rec #: [id number] Physician: Hermilo GASTON MD Financial #: [id number] Pt. Type: O Room/Bed: / Admit/Disch: 07/15/23 07:29:47 - Institution: Case Times FTURO Entry 1 Patient Times In Room 07/15/23 08:40:00 Out Room 07/15/23 08:56:00 Procedure Times Start 07/15/23 08:42:00 Stop 07/15/23 08:51:00 Anesthesia Times Last Modified By: ASHKAN Ordaz RN, Ruthann 07/15/23 08:53:50 Case Attendance FTURO Entry 1 [...] DILATION(.) URETHRAL DILATION(.) Comments Last Modified By: TRAVON Ordaz RNOR, ASHKAN Ordaz RN, Sushma MASON, ASHKAN, Mary Beth 07/15/23 Mary Beth 07/15/23 Mary Beth 07/15/23 08:53:51 08:53:51 08:53:51 Surgical Procedures FTURO Entry 1 Procedure Description Procedure CYSTOSCOPY LOCAL WITH Modifiers . URETHRAL DILATION Surgeon Description CYSTO 100 UNITS BOTOX Primary Procedure Yes Primary Surgeon Hermilo GASTON MD Start 07/15/23 08:42:00 Stop 07/15/23 08:51:00 Anesthesia Type Local Surgical Service Urology Wound Class 2 - Clean-Contaminated Last Modified By: ASHKAN Ordaz RN, Ruthann 07/15/23 08:53:52 General Comments: botox 100 units lot [id number] General Case Data FTURO Pre-Care Text: Classifies [...] Out Hermilo GASTON MD, Verified (If Participants TRAVON Ordaz RNOR, Applicable) Dakota Clinton CST, Kimberly A Time [...] ASHKAN Ordaz RN, Ruthann 07/15/23 08:54 Normal [facility] Main OR Preoperative Recordo n 07-15-2023 Main OR Preoperative Record Holding Area Document Type FTURO Summary Primary Physician: Hermilo GASTON MD Finalized Date/Time: 07/15/23 07:47:45 Pt. Name: SHAILESH BLAKE /Sex: 1970 Female Med Rec #: [id number] Physician: Hermilo GASTON MD Financial #: [id number] Pt. Type: O Room/Bed: / Admit/Disch: 07/15/23 [...] By: Lissa Quezada RN 07/15/23 07:47 Normal [facility] Operative Reporton Operative Report Patient: SHAILESH [...] home with antibiotic coverage, Follow up arranged. [facility] Comment on above: Result Comment: Elec tronically Signed By: ALEK JARAMILLO, Hermilo Azul.mariana\Date and Time Signed: 07/15/23 08:53 EDT Outpatient Surgery Discharge Instructionon 07-15-2023 Outpatient Surgery Discharge Instruction [id number] 1.00TIFF [facility] Pre-Certification Formon Pre-Certification Form [id number]#1 .00TIFF [facility] C Urineon 07-10-2023 Bacteria identified Cx [...] Locations R1: This test was performed at: [facility], [address] [place] [address], [phone] , , [facility] Comment on above: Performed By: #### 2 [id number] ####[facility] [address] [place] [address] Pre-Certification Formon Pre-Certification Form [id number]#1 .00TIFF [facility] Pre-Certification Formon Pre-Certification Form [id number]#1 .00TIFF [facility] Pre-Certification Form [id number]#1 .00TIFF [facility] Ambulatory Visit Summaryon 0 07-08-2023 Ambulatory [...] solution) fluticasone nasal (fluticasone 0.05 mg/inh Nasal [place]) gabapentin (gabapentin 400 mg Cap) lamotrigine (lamotrigine [...] Appointments Friday 10:30 AM EDT With: Where: [facility] Urology Surgical Services Friday. 2023 8:30 AM EDT With: Where: [facility] Urology Surgical Services Friday 2:40 PM EDT With: KAYY MIRAMONTES PA-C Where: [facility] Pre-Certification Formon Pre-Certification Form [id number]#1 .00TIFF [facility] Pre-Certification Formon Pre-Certification Form [id number]# 1.00TIFF [facility] Pre-Certification Form [id number]#1 .00TIFF [facility] Pre-Certification Formon Pre-Certification Form [id number]#1 .00TIFF [facility] Pre-Certification Formon Pre-Certification Form [id number]#1 .00TIFF [facility] Urology Office/Clinic Noteon 05-30-2023 Urology Office/Clinic [...] -Begin Tolterodine ER 4mg. Rx sent to [facility]. Monitor for SEs. -Will discuss case [...] E&M of Est. Patient Moderate 30-39 Min 40036 2. OAB (overactive bladder) (N32.81: Overactive bladder) see #1 Orders: tolterodine, 4 mg = 1 cap(s), Oral, Daily, X 30 day(s), # 30 cap(s), Refills(s) 11, Pharmacy: [facility]/pharmacy #[id number], 173, cm, 05/28/23 16:07:00 EST, Height/Length Dosing, 142, kg, 05/28/23 16:07:00 EST, Weight Dosing 79375 Measure Post Void residual urine and/or bladder capacity by US- non-imaging Urnls Dip Stick Auto w/o Microscopy POC 73260 Follow-up With When Contact Information THERESA MOCTEZUMA, KAYY Buenrostro, URL [address] [place] [address] [phone] Additional Instructions: sched cysto or Botox Patient [...] Tab, Oral, BID fluticasone 0.05 mg/inh Nasal [place], Nasal, Daily gabapentin 400 mg Cap, Oral, [...] (Rash) aspir (more content not included)... Normal [facility] Comment on above: Result Comment: Elec [...] solution) fluticasone nasal (fluticasone 0.05 mg/inh Nasal [place]) gabapentin (gabapentin 400 mg Cap) lamotrigine (lamotrigine [...] Up with KAYY MIRAMONTES PA-C, URL When: Where: [address] [facility] [place] [address] [id number] Medications What How Much When Instructions Unchanged [...] fluticasone nasal (fluticasone 0.05 mg/ inh Nasal [place]) Nasal Inhalation Every day Unchanged gabapentin (gabapentin [...] including vitamins, herbs, eye drops, creams, and yaqv-ykl-yewckxp medicines. ? Any problems you or family [...] your health (more content not included)... Normal [facility] Patient Educationon 05-28-19 Patient Education Urology [...] including vitamins, herbs, eye drops, creams, and zvqh-jzk-qvfifsg medicines. ? Any problems you or family [...] tells you to take them. ? Taking aedc-vla-jsikznj medicines, vitamins, herbs, and supplements. General instructions [...] these instructions at home: Medicines ? Take jpgv-mga-rqegude and prescription medicines only as told by [...] health ca (more content not included)... Normal [facility] XR hip LT min 2V(w/wo pelvis )*on 04-09-2023 XR hip LT min 2V(w/wo pelvis)* [facility] [place] Other XR hip LT min 2V(w/wo pelvis)* [facility] [place] Other XR hip LT min 2V(w/wo pelvis)* [address] [facility] [place] Other XR hip LT min 2V(w/wo pelvis)* [facility] [address] [place] Other XR hip LT min 2V(w/wo pelvis)* XRay Report [place] Other XR hip LT min 2V(w/wo pelvis)* Signed [place] Other XR hip LT min 2V(w/wo pelvis)* Patient: Shailesh Blake MR#: [id number] [facility] Other XR hip LT min 2V(w/wo pelvis)* : 1970 Acct:[id number] [place] Other XR hip LT min 2V(w/wo pelvis)* Age/Sex: 52 / F ADM Date: 04/09/23 [facility] Other XR hip LT min 2V(w/wo pelvis)* Loc: XD Room: Type: [facility] [address] [place] Other XR hip LT min 2V(w/wo pelvis)* Attending Dr: Destini Kilgore NP [facility] Other XR hip LT min 2V(w/wo pelvis)* Copies to: Destini Kilgore NP [place] Other XR hip LT min 2V(w/wo pelvis)* Ordering Provider: Destini Kilgore NP [facility] Other XR hip LT min 2V(w/wo pelvis)* Date of Service: 04/09/23 [facility] Other XR hip LT min 2V(w/wo pelvis)* XR/XR hip LT min 2V(w/wo pelvis)*: Left hip pain [facility] Other XR hip LT min 2V(w/wo pelvis)* Left hip 2 views. [facility] Other XR hip LT min 2V(w/wo pelvis)* Reason for exam: Left hip pain radiates into the joint and down into the knee for 3 days. [facility] Other XR hip LT min 2V(w/wo pelvis)* COMPARISON: None. [facility] Other XR hip LT min 2V(w/wo pelvis)* FINDINGS: Mild degenerative changes of the left hip without acute bony process. [facility] Other XR hip LT min 2V(w/wo pelvis)* XR/XR hip LT min 2V(w/wo pelvis)* [facility] Other XR hip LT min 2V(w/wo pelvis)* IMPRESSION: Mild degenerative changes of the left hip without acute bony process. [facility] Other XR hip LT min 2V(w/wo pelvis)* Impression dictated by: Memo Blanchard Jr., D.O.04/09/2023 3:57 PM [facility] Other XR hip LT min 2V(w/wo pelvis)* Dictation Location: [place] [address] [place] Other XR hip LT min 2V(w/wo pelvis)* Transcribed By: MADAN 04/09/23 1557 [facility] Other XR hip LT min 2V(w/wo pelvis)* Dictated By: Memo Blanchard Jr, DO 04/09/23 1550 [facility] Other XR hip LT min 2V(w/wo pelvis)* Signed By: [facility] Other XR hip LT min 2V(w/wo pelvis)* 04/09/23 9292 [place] Other US PELVIS AND TRANSVAGon US PELVIS [...] by: JACINTA GUTIERREZ Date: 2022-08-27 07:34 Normal [facility] XR DEXA BONE DENSITYon 08-26 XR [...] by: JACINTA GUTIERREZ Date: 2022-08-26 16:16 Normal [facility] PAP ACOG PANEL 2: 30 to 65on 08-10-2022 . . Normal [facility] Comment on above: Result Comment: Perf ormed at: WB Performed By: #### 4 [id number] #### [facility] [address] [address] [address] Beth Alanis Age Gdln ACOG Testing 30-65 Normal [facility] Comment on above: Performed By: #### 4 [id number] #### [facility] [address] [address] [address] Beth Alanis DIAGNOSIS: Comment Normal [facility] Comment on above: Result Comment: NEGA TIVE FOR INTRAEPITHELIAL LESION OR MALIGNANCY. Performed at: WB Performed By: #### 4 [id number] #### [facility] [address] [address] [address] Beth Alanis HPV Aptima Negative Normal Negative [facility] Comment on above: Result Comment: This nucleic acid amplification test detects fourteen high-risk HPV types (16,18,31,33,35,39,45,51,52,56,58,59,66,68) without differentiation. Performed at: =G Performed By: #### 4 [id number] #### [facility] [address] [address] [address] Beth Alanis HPV Genotype Reflex Comment Normal [facility] Comment on above: Result Comment: Crit eria not met, HPV Genotype not performed. Performed at: WB Performed By: #### 4 [id number] #### [facility] [address] [address] [address] Beth Alanis Methodology: Comment Normal [facility] Comment on above: Result Comment: This liquid based ThinPrep(R) pap test was screened with the use of an image guided system. Performed at: WB Performed By: #### 4 [id number] #### [facility] [address] [place] [address] Dr. Beth Alanis Note: Comment Normal [facility] Comment on above: Result Comment: The Pap smear is a screening test designed to aid in the detection of premalignant and malignant conditions of the uterine cervix. It is not a diagnostic procedure and should not be used as the sole means of detecting cervical cancer. Both false-positive and false-negative reports do occur. . Performed at: WB Performed By: #### 4 [id number] #### [facility] [address] [address] [address] Beth Alanis Performed by: Comment Normal [facility] Comment on above: Result Comment: Evelyn Ayala, College Associate (ASCP) Performed at: WB Performed By: #### 4 [id number] #### [facility] [address] [place] [address] Dr. Beth Alanis Specimen adequacy: Comment Normal [facility] Comment on above: Result Comment: Sati sfactory for evaluation. Endocervical and/or squamous metaplastic cells (endocervical component) are present. Performed at: WB Performed By: #### 4 [id number] #### [facility] [address] [place] [address] Dr. Beth Alanis Covid-19 PCR ([facility])on 06-26 SARS-CoV-2 (COVID-19) RNA ANITA+probe Ql (Unsp spec) Not detected Normal NOT DETECTED [facility] Comment on above: Result Comment: This [...] consistent with SARS-CoV-2. Performed By: #### B LAB DIRECTOR, BMP, HSTROPN #### [facility] [address] [place] [address] Dr. Beth Alanis INFLUENZA A AND B AGon 07-14 INFLUANEGH SEE BELOW Normal [facility] Comment on above: Result Comment: Nega tive for Flu A protein angiten. Infection due to Flu A cannot be ruled out. Flu A angiten in the sample may be below the detection limit of the test. Performed By: #### I NFLUAB #### [facility] [address] [place] [address] Dr. Beth Alanis INFLUBNEGH SEE BELOW Normal [facility] Comment on above: Result Comment: Nega tive for Flu B protein antigen. Infection due to Flu B cannot be ruled out. Flu B antigen in the sample may be below the detection limit of the test. Performed By: #### I NFLUAB #### [facility] [address] [place] [address] Dr. Beth Alanis INFLUENZA A AG Negative Normal NEGATIVE SEE COMMENT [facility] Comment on above: Performed By: #### I NFLUAB #### [facility] [address] [place] [address] Dr. Beth Alanis INFLUENZA B AG Negative Normal NEGATIVE SEE COMMENT [facility] Comment on above: Performed By: #### I NFLUAB #### [facility] [address] [place] [address] Dr. Beth Alanis SYMPTOMATIC COVID-19 ANTIGEN on 07-14-2022 EUA Statement SEE BELOW Normal [facility] Comment [...] is revoked sooner. Performed By: #### B LAB DIRECTOR, BMP, HSTROPN #### [facility] [address] [place] [address] Dr. Beth Alanis SARS-CoV-2 (COVID-19) RNA ANITA+probe Ql (Unsp spec) Negative Normal NEGATIVE [facility] Comment on above: Performed By: #### B LAB DIRECTOR, BMP, HSTROPN #### [facility] [address] [address] [address] Beth Alanis XR CHEST 1 Von 07-14-2022 XR CHEST 1 V EXAM: Chest x-ray HISTORY: . COUGH . COMPARISON: 10/23/2021 TECHNIQUE: Single view of the chest. FINDINGS: Heart and vascularity are unremarkable. Lungs are free of focal infiltrates. Grossly no bony abnormality is appreciated. Impression: No acute heart or lung disease identified. Electronically authenticated by: MELLISSA PRIEST Date: 2022-07-14 11:13 Normal [facility] VAGINITIS/VAGINOSIS DNA PROB Pablo 05-22-2022 Rosie species Negative Normal Negative [facility] Comment on above: Performed By: #### V AGINT #### [facility] [address] [place] [address] Dr. Beth Alanis Gardnerella vaginalis Negative Normal Negative [facility] Comment on above: Performed By: #### V AGINT #### [facility] [address] [place] [address] Dr. Beth Alanis Trichomonas vaginalis Negative Normal Negative [facility] Comment on above: Performed By: #### V AGINT #### [facility] [address] [place] [address] Dr. Beth Alanis LIPID PROFILEon 03-18-2022 CHOL-HDL RATIO NORM SEE BELOW Normal [facility] Comment on above: Result Comment: 3.3 - 4.4 LOW RISK 4.4 - 7.1 AVERAGE RISK 7.1 - 11.0 MODERATE RISK >11.0 HIGH RISK Performed By: #### 4 [id number] #### [facility] [address] [address] [address] Beth Aalnis Cholesterol [Mass/Vol] 183 mg/dL Normal <=200 [facility] Comment on above: Performed By: #### 4 [id number] #### [facility] [address] [address] [address] Beth Alanis Cholesterol in HDL [Mass/Vol] 56 mg/dL Normal 40-60 [facility] Comment on above: Performed By: #### 4 [id number] #### [facility] [address] [address] [address] Beth Alanis Cholesterol in LDL [Mass/Vol] 106.8 mg/dL Normal [facility] Comment on above: Performed By: #### 4 [id number] #### [facility] [address] [address] [address] Beth Alanis Cholesterol.total/C holesterol in HDL [Mass ratio] 3.3 {ratio} Normal [facility] Comment on above: Performed By: #### 4 [id number] #### [facility] [address] [address] [address] Beth Alanis HDL NORMAL > or = 60 mg/dl - LO W CARDIOVASCULAR RISK <40 mg/dl - HIGH CARDIOVASCULAR RISK Normal [facility] Comment on above: Performed By: #### 4 [id number] #### [facility] [address] [address] [address] Beth Alanis LDL CALC NORMAL SEE BELOW Normal [facility] Comment on above: Result Comment: <100 mg/dl OPTIMAL 100 - 129 mg/dl NEAR OR ABOVE OPTIMAL 130 - 159 mg/dl BORDERLINE HIGH 160 - 189 mg/dl HIGH >190 mg/dl VERY HIGH Performed By: #### 4 [id number] #### [facility] [address] [address] [address] Bteh Alanis Triglyceride [Mass/Vol] 101 mg/dL Normal <=150 [facility] Comment on above: Performed By: #### 4 [id number] #### [facility] [address] [address] [address] Beth Alanis VLDL CALC 20.2 mg/dL Normal [facility] Comment on above: Performed By: #### 4 [id number] #### [facility] [address] [place] [address] Dr. Beth Alanis PROF 14(COMP METB)on 022 Albumin [Mass/Vol] 3.8 g/dL Normal 3.4-5.0 [facility] Comment on above: Performed By: #### 4 [id number] #### [facility] [address] [place] [address] Dr. Beth Alanis Albumin/Globulin [Mass ratio] 0.8 {ratio} Normal [facility] Comment on above: Performed By: #### 4 [id number] #### [facility] [address] [place] [address] Dr. Beth Alanis ALP [Catalytic activity/Vol] 108 U/L Normal 46-116 [facility] Comment on above: Performed By: #### 4 [id number] #### [facility] [address] [place] [address] Dr. Beth Alanis ALT [Catalytic activity/Vol] 28 U/L Normal 14-59 [facility] Comment on above: Performed By: #### 4 [id number] #### [facility] [address] [place] [address] Dr. Beth Alanis Anion gap [Moles/Vol] 10.3 mmol/L Normal [facility] Comment on above: Performed By: #### 4 [id number] #### [facility] [address] [place] [address] Dr. Beth Alanis AST [Catalytic activity/Vol] 18 U/L Normal 15-37 [facility] Comment on above: Performed By: #### 4 [id number] #### [facility] [address] [place] [address] Dr. Beth Alanis Bilirubin [Mass/Vol] 0.7 mg/dL Normal 0.2-1.0 [facility] Comment on above: Performed By: #### 4 [id number] #### [facility] [address] [place] [address] Dr. Beth Alanis Calcium [Mass/Vol] 9.5 mg/dL Normal 8.5-10.1 [facility] Comment on above: Performed By: #### 4 [id number] #### [facility] [address] [address] [address] Beth Alanis Chloride [Moles/Vol] 102 mmol/L Normal 98-107 [facility] Comment on above: Performed By: #### 4 [id number] #### [facility] [address] [address] [address] Beth Alanis CO2 [Moles/Vol] 27.6 mmol/L Normal 21.0-32.0 [facility] Comment on above: Performed By: #### 4 [id number] #### [facility] [address] [place] [address] Dr. Beth Alanis Creatinine [Mass/Vol] 0.93 mg/dL Normal 0.55-1.02 [facility] Comment on above: Performed By: #### 4 [id number] #### [facility] [address] [place] [address] Dr. Beth Alanis EGFR-AF YEMENI >60 Normal >=60 [facility] Comment on above: Performed By: #### 4 [id number] #### [facility] [address] [place] [address] Dr. Beth Alanis EGFR-NON AF YEMENI >60 Normal >=60 [facility] Comment on above: Performed By: #### 4 [id number] #### [facility] [address] [place] [address] Dr. Beth Alanis Globulin (S) [Mass/Vol] 5.0 g/dL Normal [facility] Comment on above: Performed By: #### 4 [id number] #### [facility] [address] [place] [address] Dr. Beth Alanis Glucose [Mass/Vol] 108 mg/dL Critically high 74-106 [facility] Comment on above: Performed By: #### 4 [id number] #### [facility] [address] [place] [address] Dr. Beth Alanis Potassium [Moles/Vol] 3.9 mmol/L Normal 3.5-5.1 [facility] Comment on above: Performed By: #### 4 [id number] #### [facility] [address] [address] [address] Beth Alanis Protein [Mass/Vol] 8.8 g/dL Critically high 6.4-8.2 [facility] Comment on above: Performed By: #### 4 [id number] #### [facility] [address] [address] [address] Beth Alanis Sodium [Moles/Vol] 136 mmol/L Normal 136-145 [facility] Comment on above: Performed By: #### 4 [id number] #### [facility] [address] [place] [address] Dr. Beth Alanis Urea nitrogen [Mass/Vol] 17.0 mg/dL Normal 7.0-18.0 [facility] Comment on above: Performed By: #### 4 [id number] #### [facility] [address] [place] [address] Dr. Beth Alanis Urea nitrogen/Creatinine [Mass ratio] 18.3 mg/mg Normal [facility] Comment on above: Performed By: #### 4 [id number] #### [facility] [address] [place] [address] Dr. Beth Alanis MG MAMM SCREEN 3D LUCINDA CADon 11-22-2021 MG MAMM SCREEN 3D LUCINDA CAD Patient: SHAILESH BLAKE Exam Date: 11/22/2021 : 1970 Gender:F Ordering : DR MARTI JEREZ . Admission #: [id number] Family : Order #: [id number] CLICK HERE TO VIEW EXAM RADIOLOGY REPORT [...] Treatments None Family Cancers None LOCATION: [facility] BREAST COMPOSITION: Heterogeneously dense,which may obscure [...] Gutierrez M.D. on 11/22/2021 at 15:52 Normal [facility] GLUCOSE BLOODon 11-21-2021 Glucose [Mass/Vol] 110 mg/dL Critically high 74-106 [facility] Comment on above: Performed By: #### 4 [id number] #### [facility] [address] [place] [address] Dr. Beth Alanis LIPID PROFILEon 11-21-2021 CHOL-HDL RATIO NORM SEE BELOW Normal [facility] Comment on above: Result Comment: 3.3 - 4.4 LOW RISK 4.4 - 7.1 AVERAGE RISK 7.1 - 11.0 MODERATE RISK >11.0 HIGH RISK Performed By: #### 4 [id number] #### [facility] [address] [address] [address] Beth Alanis Cholesterol [Mass/Vol] 258 mg/dL Critically high <=200 [facility] Comment on above: Performed By: #### 4 [id number] #### [facility] [address] [address] [address] Beth Alanis Cholesterol in HDL [Mass/Vol] 34 mg/dL Critically low 40-60 [facility] Comment on above: Performed By: #### 4 [id number] #### [facility] [address] [address] [address] Beth Alanis Cholesterol in LDL [Mass/Vol] 161.4 mg/dL Normal [facility] Comment on above: Performed By: #### 4 [id number] #### [facility] [address] [place] [address] Dr. Beth Alanis Cholesterol.total/C holesterol in HDL [Mass ratio] 7.6 {ratio} Normal [facility] Comment on above: Performed By: #### 4 [id number] #### [facility] [address] [place] [address] Dr. Beth Alanis HDL NORMAL > or = 60 mg/dl - LO W CARDIOVASCULAR RISK <40 mg/dl - HIGH CARDIOVASCULAR RISK Normal [facility] Comment on above: Performed By: #### 4 [id number] #### [facility] [address] [place] [address] Dr. Beth Alanis LDL CALC NORMAL SEE BELOW Normal [facility] Comment on above: Result Comment: <100 mg/dl OPTIMAL 100 - 129 mg/dl NEAR OR ABOVE OPTIMAL 130 - 159 mg/dl BORDERLINE HIGH 160 - 189 mg/dl HIGH >190 mg/dl VERY HIGH Performed By: #### 4 [id number] #### [facility] [address] [place] [address] Dr. Beth Alanis Triglyceride [Mass/Vol] 313 mg/dL Critically high <=150 [facility] Comment on above: Performed By: #### 4 [id number] #### [facility] [address] [place] [address] Dr. Beth Alanis VLDL CALC 62.6 mg/dL Normal [facility] Comment on above: Performed By: #### 4 [id number] #### [facility] [address] [place] [address] Dr. Beth Alanis BNPon 10-23-2021 Natriuretic peptide B (Bld) [Mass/Vol] 15.0 pg/mL Normal <=900.0 [facility] Comment on above: Performed By: #### B LAB DIRECTOR, BMP, HSTROPN #### [facility] [address] [place] [address] Dr. Beth Alanis CBC AUTO DIFFon 10-23-2021 BASO # 0.1 103/ul Normal 0.0-0.1 [facility] Comment on above: Performed By: #### B LAB DIRECTOR, BMP, HSTROPN #### [facility] [address] [place] [address] Dr. Beth Alanis Basophils/100 WBC (Bld) 0.6 % Normal 0.2-2.0 [facility] Comment on above: Performed By: #### B LAB DIRECTOR, BMP, HSTROPN #### [facility] [address] [place] [address] Dr. Beth Alanis EO # 0.1 103/ul Normal 0.0-0.7 [facility] Comment on above: Performed By: #### B LAB DIRECTOR, BMP, HSTROPN #### [facility] [address] [place] [address] Dr. Beth Alanis Eosinophils/100 WBC (Bld) 1.8 % Normal 0.9-7.0 [facility] Comment on above: Performed By: #### B LAB DIRECTOR, BMP, HSTROPN #### [facility] [address] [place] [address] Dr. Beth Alanis Erythrocyte distribution width (RBC) [Ratio] 13.6 % Normal 11.0-15.0 [facility] Comment on above: Performed By: #### B LAB DIRECTOR, BMP, HSTROPN #### [facility] [address] [place] [address] Dr. Beth Alanis Hematocrit (Bld) [Volume fraction] 46.6 % Normal 36.0-48.0 [facility] Comment on above: Performed By: #### B LAB DIRECTOR, BMP, HSTROPN #### [facility] [address] [place] [address] Dr. Beth Alanis Hemoglobin (Bld) [Mass/Vol] 15.1 g/dL Normal 12.0-16.0 [facility] Comment on above: Performed By: #### B LAB DIRECTOR, BMP, HSTROPN #### [facility] [address] [place] [address] Dr. Beth Alanis IG # 0.02 10e3/ul Normal 0.00-0.03 [facility] Comment on above: Performed By: #### B LAB DIRECTOR, BMP, HSTROPN #### [facility] [address] [place] [address] Dr. Beth Alanis IG % 0.3 % Normal 0.0-0.5 [facility] Comment on above: Performed By: #### B LAB DIRECTOR, BMP, HSTROPN #### [facility] [address] [place] [address] Dr. Beth Alanis LYMPH # 1.9 103/ul Normal 1.2-3.8 [facility] Comment on above: Performed By: #### B LAB DIRECTOR, BMP, HSTROPN #### [facility] [address] [place] [address] Dr. Beth Alanis Lymphocytes/100 WBC (Bld) 23.9 % Normal 20.5-60.0 [facility] Comment on above: Performed By: #### B LAB DIRECTOR, BMP, HSTROPN #### [facility] [address] [place] [address] Dr. Beth Alanis MANUAL DIFF REQ NO Normal [facility] Comment on above: Performed By: #### B LAB DIRECTOR, BMP, HSTROPN #### [facility] [address] [place] [address] Dr. Beth Alanis MCH (RBC) [Entitic mass] 29.8 pg Normal 26.7-34.0 [facility] Comment on above: Performed By: #### B LAB DIRECTOR, BMP, HSTROPN #### [facility] [address] [place] [address] Dr. Beth Alanis MCHC (RBC) [Mass/Vol] 32.4 g/dL Normal 29.9-35.2 [facility] Comment on above: Performed By: #### B LAB DIRECTOR, BMP, HSTROPN #### [facility] [address] [place] [address] Dr. Beth Alanis MCV (RBC) [Entitic vol] 91.9 fL Normal 81.0-99.0 [facility] Comment on above: Performed By: #### B LAB DIRECTOR, BMP, HSTROPN #### [facility] [address] [place] [address] Dr. Beth Alanis MONO # 0.6 103/ul Normal 0.3-0.8 [facility] Comment on above: Performed By: #### B LAB DIRECTOR, BMP, HSTROPN #### [facility] [address] [address] [address] Beth Alanis Monocytes/100 WBC (Bld) 7.7 % Normal 1.7-12.0 [facility] Comment on above: Performed By: #### B LAB DIRECTOR, BMP, HSTROPN #### [facility] [address] [place] [address] Dr. Beth Alanis NEUT # 5.1 103/ul Normal 1.4-6.5 [facility] Comment on above: Performed By: #### B LAB DIRECTOR, BMP, HSTROPN #### [facility] [address] [place] [address] Dr. Beth Alanis Neutrophils/100 WBC (Bld) 65.7 % Normal 43.0-75.0 [facility] Comment on above: Performed By: #### B LAB DIRECTOR, BMP, HSTROPN #### [facility] [address] [place] [address] Dr. Beth Alanis Platelet mean volume (Bld) [Entitic vol] 9.6 fL Normal 9.5-13.5 [facility] Comment on above: Performed By: #### B LAB DIRECTOR, BMP, HSTROPN #### [facility] [address] [place] [address] Dr. Beth Alanis PLT 324 103/ul Normal 150-450 [facility] Comment on above: Performed By: #### B LAB DIRECTOR, BMP, HSTROPN #### [facility] [address] [place] [address] Dr. Beth Alanis RBC 5.07 106/ul Normal 4.20-5.40 [facility] Comment on above: Performed By: #### B LAB DIRECTOR, BMP, HSTROPN #### [facility] [address] [place] [address] Dr. Beth Alanis WBC 7.8 103/ul Normal 4.0-11.0 [facility] Comment on above: Performed By: #### B LAB DIRECTOR, BMP, HSTROPN #### [facility] [address] [place] [address] Dr. Beth Alanis PROF CHEM 8 (BAS METB)on 06- 28-2022 Anion gap [Moles/Vol] 6.7 mmol/L Normal [facility] Comment on above: Performed By: #### B LAB DIRECTOR, BMP, HSTROPN #### [facility] [address] [place] [address] Dr. Beth Alanis Calcium [Mass/Vol] 9.3 mg/dL Normal 8.5-10.1 [facility] Comment on above: Performed By: #### B LAB DIRECTOR, BMP, HSTROPN #### [facility] [address] [place] [address] Dr. Beth Alanis Chloride [Moles/Vol] 104 mmol/L Normal 98-107 [facility] Comment on above: Performed By: #### B LAB DIRECTOR, BMP, HSTROPN #### [facility] [address] [place] [address] Dr. Beth Alanis CO2 [Moles/Vol] 31.3 mmol/L Normal 21.0-32.0 [facility] Comment on above: Performed By: #### B LAB DIRECTOR, BMP, HSTROPN #### [facility] [address] [place] [address] Dr. Beth Alanis Creatinine [Mass/Vol] 0.98 mg/dL Normal 0.55-1.02 [facility] Comment on above: Performed By: #### B LAB DIRECTOR, BMP, HSTROPN #### [facility] [address] [place] [address] Dr. Beth Alanis EGFR-AF YEMENI >60 Normal >=60 [facility] Comment on above: Performed By: #### B LAB DIRECTOR, BMP, HSTROPN #### [facility] [address] [place] [address] Dr. Beth Alanis EGFR-NON AF YEMENI =60 Normal >=60 [facility] Comment on above: Performed By: #### B LAB DIRECTOR, BMP, HSTROPN #### [facility] [address] [place] [address] Dr. Beth Alanis Glucose [Mass/Vol] 104 mg/dL Normal 74-106 [facility] Comment on above: Performed By: #### B LAB DIRECTOR, BMP, HSTROPN #### [facility] [address] [address] [address] Beth Alanis Potassium [Moles/Vol] 4.0 mmol/L Normal 3.5-5.1 [facility] Comment on above: Performed By: #### B LAB DIRECTOR, BMP, HSTROPN #### [facility] [address] [address] [address] Beth Alanis Sodium [Moles/Vol] 138 mmol/L Normal 136-145 [facility] Comment on above: Performed By: #### B LAB DIRECTOR, BMP, HSTROPN #### [facility] [address] [address] [address] Beth Alanis Urea nitrogen [Mass/Vol] 12.0 mg/dL Normal 7.0-18.0 [facility] Comment on above: Performed By: #### B LAB DIRECTOR, BMP, HSTROPN #### [facility] [address] [place] [address] Dr. Beth Alanis Urea nitrogen/Creatinine [Mass ratio] 12.2 mg/mg Normal [facility] Comment on above: Performed By: #### B LAB DIRECTOR, BMP, HSTROPN #### [facility] [address] [place] [address] Dr. Beth Alanis TROPONIN, HIGH SENSITIVITYon 10-23-2021 HSTROP 5.6 pg/mL Normal 4.0-51.3 [facility] Comment on above: Result Comment: CUT- OFF POINTS HAVE BEEN ESTABLISHED BASED ON THE FOURTH UNIVERSAL DEFINITIONS OF MYOCARDIAL INFARCTION. THE UPPER REFERENCE LIMIT (URL) OF TROPONIN, DEFINED THE 99TH PERCENTILE OF cTnI DISTRIBUTION IN A REFERENCE POPULATION, HAS BEEN CONFIRMED THE DECISION THRESHOLD FOR [place] DIAGNOSIS. Performed By: #### B LAB DIRECTOR, BMP, HSTROPN #### [facility] [address] [place] [address] Dr. Beth Alanis XR CHEST 1 Von [...] CHELY KEITH Date: 2021-10-23 16:45 Normal [facility] INSULINon 09-05-2021 Insulin 26.0 uIU/mL Critically high 2.6-24.9 [facility] Comment on above: Performed By: #### 4 [id number] #### [facility] [address] [place] [address] Dr. Beth Alanis OCC BLD IMMUNO SCREENon 08-26 OCCULT BLOOD Negative Normal NEGATIVE [facility] Comment on above: Performed By: #### O BSCRN #### [facility] [address] [place] [address] Dr. Beth Alanis CBC AUTO DIFFon 09-04-2021 BASO # 0.0 103/ul Normal 0.0-0.1 [facility] Comment on above: Performed By: #### C BC #### [facility] [address] [place] [address] Dr. Beth Alanis Basophils/100 WBC (Bld) 0.4 % Normal 0.2-2.0 [facility] Comment on above: Performed By: #### C BC #### [facility] [address] [place] [address] Dr. Beth Alanis EO # 0.1 103/ul Normal 0.0-0.7 [facility] Comment on above: Performed By: #### C BC #### [facility] [address] [place] [address] Dr. Beth Alanis Eosinophils/100 WBC (Bld) 1.2 % Normal 0.9-7.0 [facility] Comment on above: Performed By: #### C BC #### [facility] [address] [place] [address] Dr. Beth Alanis Erythrocyte distribution width (RBC) [Ratio] 14.1 % Normal 11.0-15.0 [facility] Comment on above: Performed By: #### C BC #### [facility] [address] [place] [address] Dr. Beth Alanis Hematocrit (Bld) [Volume fraction] 44.1 % Normal 36.0-48.0 [facility] Comment on above: Performed By: #### C BC #### [facility] [address] [place] [address] Dr. Beth Alanis Hemoglobin (Bld) [Mass/Vol] 14.6 g/dL Normal 12.0-16.0 [facility] Comment on above: Performed By: #### C BC #### [facility] [address] [place] [address] Dr. Beth Alanis IG # 0.03 10e3/ul Normal 0.00-0.03 [facility] Comment on above: Performed By: #### C BC #### [facility] [address] [place] [address] Dr. Beth Alanis IG % 0.3 % Normal 0.0-0.5 [facility] Comment on above: Performed By: #### C BC #### [facility] [address] [place] [address] Dr. Beth Alanis LYMPH # 1.9 103/ul Normal 1.2-3.8 [facility] Comment on above: Performed By: #### C BC #### [facility] [address] [place] [address] Dr. Beth Alanis Lymphocytes/100 WBC (Bld) 17.8 % Critically low 20.5-60.0 [facility] Comment on above: Performed By: #### C BC #### [facility] [address] [place] [address] Dr. Beth Alanis MANUAL DIFF REQ NO Normal [facility] Comment on above: Performed By: #### C BC #### [facility] [address] [place] [address] Dr. Beth Alanis MCH (RBC) [Entitic mass] 30.3 pg Normal 26.7-34.0 [facility] Comment on above: Performed By: #### C BC #### [facility] [address] [place] [address] Dr. Beth Alanis MCHC (RBC) [Mass/Vol] 33.1 g/dL Normal 29.9-35.2 [facility] Comment on above: Performed By: #### C BC #### [facility] [address] [place] [address] Dr. Beth Alanis MCV (RBC) [Entitic vol] 91.5 fL Normal 81.0-99.0 [facility] Comment on above: Performed By: #### C BC #### [facility] [address] [place] [address] Dr. Beth Alanis MONO # 0.9 103/ul Critically high 0.3-0.8 [facility] Comment on above: Performed By: #### C BC #### [facility] [address] [place] [address] Dr. Beth Alanis Monocytes/100 WBC (Bld) 8.9 % Normal 1.7-12.0 [facility] Comment on above: Performed By: #### C BC #### [facility] [address] [place] [address] Dr. Beth Alanis NEUT # 7.6 103/ul Critically high 1.4-6.5 [facility] Comment on above: Performed By: #### C BC #### [facility] [address] [place] [address] Dr. Beth Alanis Neutrophils/100 WBC (Bld) 71.4 % Normal 43.0-75.0 [facility] Comment on above: Performed By: #### C BC #### [facility] [address] [place] [address] Dr. Beth Alanis Platelet mean volume (Bld) [Entitic vol] 9.7 fL Normal 9.5-13.5 [facility] Comment on above: Performed By: #### C BC #### [facility] [address] [place] [address] Dr. Beth Alanis PLT 377 103/ul Normal 150-450 [facility] Comment on above: Performed By: #### C BC #### [facility] [address] [place] [address] Dr. Beth Alanis RBC 4.82 106/ul Normal 4.20-5.40 [facility] Comment on above: Performed By: #### C BC #### [facility] [address] [place] [address] Dr. Beth Alanis WBC 10.6 103/ul Normal 4.0-11.0 [facility] Comment on above: Performed By: #### C BC #### [facility] [address] [place] [address] Dr. Beth Alanis FREE THYROXINE INDEX T7on FTI 3.20 Normal 1.30-4.50 [facility] Comment on above: Performed By: #### C MP, T7, LIPID, TSH #### [facility] [address] [place] [address] Dr. Beth Alanis T3U 33.0 % Normal 30.0-39.0 [facility] Comment on above: Performed By: #### C MP, T7, LIPID, TSH #### [facility] [address] [place] [address] Dr. Beth Alanis T4 [Mass/Vol] 9.70 ug/dL Normal 4.80-13.90 [facility] Comment on above: Performed By: #### C MP, T7, LIPID, TSH #### [facility] [address] [place] [address] Dr. Beth Alanis GLYCOHEMOGLOBIN A1Con 2021 ADA RECOMMENDATION SEE BELOW Normal [facility] Comment on above: Result Comment: ADA RECOMMENDED LIMIT 4.0 - 6.0 ADA THERAPEUTIC TARGET < 7.0 ACTION SUGGESTED > 7.0 Performed By: #### 4 [id number] #### [facility] [address] [place] [address] Dr. Beth Alanis Glucose [Mass/Vol] 114 mg/dL Normal [facility] Comment on above: Performed By: #### 4 [id number] #### [facility] [address] [place] [address] Dr. Beth Alanis HbA1c (Bld) [Mass fraction] 5.6 % Normal 4.5-6.2 [facility] Comment on above: Performed By: #### 4 [id number] #### [facility] [address] [address] [address] Beth Alanis IRONon 09-04-2021 Iron [Mass/Vol] 73.0 ug/dL Normal 50.0-170.0 [facility] Comment on above: Performed By: #### 4 [id number] #### [facility] [address] [address] [address] Beth Alanis LIPID PROFILEon 09-04-2021 CHOL-HDL RATIO NORM SEE BELOW Normal [facility] Comment on above: Result Comment: 3.3 - 4.4 LOW RISK 4.4 - 7.1 AVERAGE RISK 7.1 - 11.0 MODERATE RISK >11.0 HIGH RISK Performed By: #### 4 [id number] #### [facility] [address] [address] [address] Beth Alanis Cholesterol [Mass/Vol] 229 mg/dL Critically high <=200 [facility] Comment on above: Performed By: #### 4 [id number] #### [facility] [address] [address] [address] Beth Alanis Cholesterol in HDL [Mass/Vol] 49 mg/dL Normal 40-60 [facility] Comment on above: Performed By: #### 4 [id number] #### [facility] [address] [address] [address] Beth Alanis Cholesterol in LDL [Mass/Vol] 160.2 mg/dL Normal [facility] Comment on above: Performed By: #### 4 [id number] #### [facility] [address] [address] [address] Beth Alanis Cholesterol.total/C holesterol in HDL [Mass ratio] 4.7 {ratio} Normal [facility] Comment on above: Performed By: #### 4 [id number] #### [facility] [address] [address] [address] Beth Alanis HDL NORMAL > or = 60 mg/dl - LO W CARDIOVASCULAR RISK <40 mg/dl - HIGH CARDIOVASCULAR RISK Normal [facility] Comment on above: Performed By: #### 4 [id number] #### [facility] [address] [address] [address] Beth Alanis LDL CALC NORMAL SEE BELOW Normal [facility] Comment on above: Result Comment: <100 mg/dl OPTIMAL 100 - 129 mg/dl NEAR OR ABOVE OPTIMAL 130 - 159 mg/dl BORDERLINE HIGH 160 - 189 mg/dl HIGH >190 mg/dl VERY HIGH Performed By: #### 4 [id number] #### [facility] [address] [address] [address] Beth Alanis Triglyceride [Mass/Vol] 99 mg/dL Normal <=150 [facility] Comment on above: Performed By: #### 4 [id number] #### [facility] [address] [address] [address] Beth Alanis VLDL CALC 19.8 mg/dL Normal [facility] Comment on above: Performed By: #### 4 [id number] #### [facility] [address] [place] [address] Dr. Beth Alanis PROF 14(COMP METB)on 022 Albumin [Mass/Vol] 3.6 g/dL Normal 3.4-5.0 [facility] Comment on above: Performed By: #### 4 [id number] #### [facility] [address] [address] [address] Beth Alains Albumin/Globulin [Mass ratio] 0.8 {ratio} Normal [facility] Comment on above: Performed By: #### 4 [id number] #### [facility] [address] [address] [address] Beth Alanis ALP [Catalytic activity/Vol] 107 U/L Normal 46-116 [facility] Comment on above: Performed By: #### 4 [id number] #### [facility] [address] [address] [address] Beth Alanis ALT [Catalytic activity/Vol] 31 U/L Normal 14-59 [facility] Comment on above: Performed By: #### 4 [id number] #### [facility] [address] [place] [address] Dr. Beth Alanis Anion gap [Moles/Vol] 14.4 mmol/L Normal [facility] Comment on above: Performed By: #### 4 [id number] #### [facility] [address] [address] [address] Beth Alanis AST [Catalytic activity/Vol] 11 U/L Critically low 15-37 [facility] Comment on above: Performed By: #### 4 [id number] #### [facility] [address] [address] [address] Beth Alanis Bilirubin [Mass/Vol] 0.4 mg/dL Normal 0.2-1.0 [facility] Comment on above: Performed By: #### 4 [id number] #### [facility] [address] [address] [address] Beth Alanis Calcium [Mass/Vol] 9.0 mg/dL Normal 8.5-10.1 [facility] Comment on above: Performed By: #### 4 [id number] #### [facility] [address] [address] [address] Beth Alanis Chloride [Moles/Vol] 103 mmol/L Normal 98-107 [facility] Comment on above: Performed By: #### 4 [id number] #### [facility] [address] [address] [address] Beth Alanis CO2 [Moles/Vol] 24.7 mmol/L Normal 21.0-32.0 [facility] Comment on above: Performed By: #### 4 [id number] #### [facility] [address] [address] [address] Beth Alanis Creatinine [Mass/Vol] 0.92 mg/dL Normal 0.55-1.02 [facility] Comment on above: Performed By: #### 4 [id number] #### [facility] [address] [address] [address] Beth Alanis EGFR-AF YEMENI >60 Normal >=60 [facility] Comment on above: Performed By: #### 4 [id number] #### [facility] [address] [place] [address] Dr. Beth Alanis EGFR-NON AF YEMENI >60 Normal >=60 [facility] Comment on above: Performed By: #### 4 [id number] #### [facility] [address] [address] [address] Beth Alanis Globulin (S) [Mass/Vol] 4.5 g/dL Normal [facility] Comment on above: Performed By: #### 4 [id number] #### [facility] [address] [address] [address] Beth Alanis Glucose [Mass/Vol] 100 mg/dL Normal 74-106 [facility] Comment on above: Performed By: #### 4 [id number] #### [facility] [address] [address] [address] Beth Alanis Potassium [Moles/Vol] 4.1 mmol/L Normal 3.5-5.1 [facility] Comment on above: Performed By: #### 4 [id number] #### [facility] [address] [place] [address] Dr. Beth Alanis Protein [Mass/Vol] 8.1 g/dL Normal 6.4-8.2 [facility] Comment on above: Performed By: #### 4 [id number] #### [facility] [address] [address] [address] Beth Alanis Sodium [Moles/Vol] 138 mmol/L Normal 136-145 [facility] Comment on above: Performed By: #### 4 [id number] #### [facility] [address] [place] [address] Dr. Beth Alanis Urea nitrogen [Mass/Vol] 27.0 mg/dL Critically high 7.0-18.0 [facility] Comment on above: Performed By: #### 4 [id number] #### [facility] [address] [address] [address] Beth Alanis Urea nitrogen/Creatinine [Mass ratio] 29.3 mg/mg Normal [facility] Comment on above: Performed By: #### 4 [id number] #### [facility] [address] [place] [address] Dr. Beth Alanis TSHon 09-04-2021 TSH 3.758 uIU/mL Critically high 0.358-3.740 [facility] Comment on above: Performed By: #### C MP, T7, LIPID, TSH #### [facility] [address] [place], [place] [address] Dr. Beth Alanis TSH RANGE SEE BELOW Normal [facility] Comment on above: Result Comment: <0.3 4 UIU/ml HYPERTHYROID 0.34-5.60 UIU/ml EUTHYROID >5.60 UIU/ml HYPOTHYROID Performed By: #### C MP, T7, LIPID, TSH #### [facility] [address] [address] [address] Beth Alanis CTA HEART-CORONARY/ ARTERY B YPASS GRAFT WITH 3DPPon 04-26-2021 CTA HEART-CORONARY/ ARTERY BYPASS GRAFT WITH 3DPP [facility] Department of Radiology [address] [place] [id number] Patient Name: SHAILESH BLAKE : 1970 Sex: F Age: Race: White Pt. Location: [facility] Patient Status: D Ordered Date: 03/19/2021 8:55:00 AM Completed Date: 04/26/2021 11:45 AM Requesting Provider: MELANIA ABARCA Attending Provider: MELANIA ABARCA Report Copy To: Signs & Symptoms: R94.39 Abnormal result of other cardiovascular function study History: Order in [facility] [phone] Is patient on meds for HTN or [...] achievable Electronically signed: Corazon Carter. Transcribed by: [email or web address], User Resident: Electronically Signed by: CORAZON CARTER @ 04/30/2021 09:22 AM Normal [facility] Vital Signs Date Time Vital Sign Value Performing Clinician Facility 01-17-2025 13:18-0400 Body height 172.7 cm Shauna STOKES Work Phone: [facility] 01-17-2025 13:18-0400 Body mass index (BMI) [Ratio] 51.7 kg/m2 Shauna STOKES Work Phone: [facility] 01-17-2025 13:18-0400 Body weight 154.22 kg Shauna STOKES Work Phone: [facility] 01-17-2025 13:18-0400 Diastolic blood pressure 78 mm[Hg] Shauna STOKES Work Phone: [facility] 01-17-2025 13:18-0400 Systolic blood pressure 130 mm[Hg] Shauna STOKES Work Phone: [facility] 12-30-2024 14:59-0400 Diastolic blood pressure 80 mm[Hg] Alyssa Arreola NP-C Work Phone: [facility] 12-30-2024 14:59-0400 Heart rate 90 /min Alyssa Arreola LAB DIRECTOR-C Work Phone: [facility] 12-30-2024 14:59-0400 SaO2% (BldA) [Mass fraction] 94 % Alyssapollo Mortensenmer LAB DIRECTOR-C Work Phone: [facility] 12-30-2024 14:59-0400 Systolic blood pressure 124 mm[Hg] Alyssa Maxwell LAB DIRECTOR-C Work Phone: [facility] 09-29-2024 10:55-0400 Body height 172.72 cm Alyssa Maxwell LAB DIRECTOR-C Work Phone: [facility] 09-29-2024 10:55-0400 Body mass index (BMI) [Ratio] 53.5 kg/m2 Alyssa Maxwell LAB DIRECTOR-C Work Phone: [facility] 09-29-2024 10:55-0400 Body weight 159.66 kg Alyssa Maxwell LAB DIRECTOR-C Work Phone: [facility] 09-29-2024 10:55-0400 Diastolic blood pressure 72 mm[Hg] Alyssa Maxwell LAB DIRECTOR-C Work Phone: [facility] 09-29-2024 10:55-0400 Heart rate 86 /min Alyssa Maxwell LAB DIRECTOR-C Work Phone: [facility] 09-29-2024 10:55-0400 SaO2% (BldA) [Mass fraction] 96 % Alyssapollo Mortensenmer LAB DIRECTOR-C Work Phone: [facility] 09-29-2024 10:55-0400 Systolic blood pressure 118 mm[Hg] Alyssa Maxwell LAB DIRECTOR-C Work Phone: [facility] 09-15-2024 09:55-0400 Body mass index (BMI) [Ratio] 53.67 kg/m2 Cheyanne Dardenoll LAB DIRECTOR Work Phone: [facility] 09-15-2024 09:55-0400 Body weight 160.12 kg Cheyanne Dardenoll LAB DIRECTOR Work Phone: [facility] 09-15-2024 09:55-0400 Diastolic blood pressure 95 mm[Hg] Cheyanne Schilling LAB DIRECTOR Work Phone: [facility] 09-15-2024 09:55-0400 Heart rate 79 /min Cheyanne Schilling LAB DIRECTOR Work Phone: [facility] 09-15-2024 09:55-0400 Systolic blood pressure 141 mm[Hg] Cheyanne Schilling LAB DIRECTOR Work Phone: [facility] 07-08-2024 15:01-0400 Diastolic blood pressure 80 mm[Hg] Alyssa Arreola LAB DIRECTOR-C Work Phone: [facility] 07-08-2024 15:01-0400 Heart rate 77 /min Alyssapollo Mortensenmer LAB DIRECTOR-C Work Phone: [facility] 07-08-2024 15:01-0400 SaO2% (BldA) [Mass fraction] 96 % Alyssapollo Mortensenmer LAB DIRECTOR-C Work Phone: [facility] 07-08-2024 15:01-0400 Systolic blood pressure 120 mm[Hg] Alyssa Arreola LAB DIRECTOR-C Work Phone: [facility] 06-16-2024 09:22-0500 Body height 172.72 cm Alyssa Mortensenmer LAB DIRECTOR-C Work Phone: [facility] 06-16-2024 09:22-0500 Body mass index (BMI) [Ratio] 54.3 kg/m2 Alyssapollo Mortensenmer LAB DIRECTOR-C Work Phone: [facility] 06-16-2024 09:22-0500 Body weight 162.1 kg Alyssa Mortensenmer LAB DIRECTOR-C Work Phone: [facility] 06-16-2024 09:22-0500 Heart rate 97 /min Alyssa Mortensenmer LAB DIRECTOR-C Work Phone: [facility] 06-16-2024 09:22-0500 SaO2% (BldA) [Mass fraction] 96 % Alyssapollo Mortensenmer LAB DIRECTOR-C Work Phone: [facility] 06-03-2024 13:19-0500 Body mass index (BMI) [Ratio] 55.35 kg/m2 Cheyanne Schilling LAB DIRECTOR Work Phone: [facility] 06-03-2024 13:19-0500 Body weight 165.11 kg Cheyanne Schilling LAB DIRECTOR Work Phone: [facility] 06-03-2024 13:19-0500 Diastolic blood pressure 80 mm[Hg] Cheyanne Schilling LAB DIRECTOR Work Phone: [facility] 06-03-2024 13:19-0500 Heart rate 95 /min Cheyanne Schilling LAB DIRECTOR Work Phone: [facility] 06-03-2024 13:19-0500 SaO2% (BldA) [Mass fraction] 99 % Cheyanne Schilling LAB DIRECTOR Work Phone: [facility] 06-03-2024 13:19-0500 Systolic blood pressure 134 mm[Hg] Cheyanne Schilling LAB DIRECTOR Work Phone: [facility] 05-05-2024 11:09-0500 Body height 172.7 cm Cheyanne Schilling LAB DIRECTOR Work Phone: [facility] 05-05-2024 11:09-0500 Body mass index (BMI) [Ratio] 53.52 kg/m2 Cheyanne Schilling LAB DIRECTOR Work Phone: [facility] 05-05-2024 11:09-0500 Body weight 159.67 kg Cheyanne Schilling LAB DIRECTOR Work Phone: [facility] 05-05-2024 11:09-0500 Diastolic blood pressure 88 mm[Hg] Cheyanne Schilling LAB DIRECTOR Work Phone: [facility] 05-05-2024 11:09-0500 Heart rate 104 /min Cheyanne Schilling LAB DIRECTOR Work Phone: [facility] 05-05-2024 11:09-0500 SaO2% (BldA) [Mass fraction] 96 % Cheyanne Schilling LAB DIRECTOR Work Phone: [facility] 05-05-2024 11:09-0500 Systolic blood pressure 144 mm[Hg] Cheyanne Schilling LAB DIRECTOR Work Phone: [facility] 03-10-2024 12:51-0500 Body height 172.7 cm Tank Anisha DO Work Phone: [facility] 03-10-2024 12:51-0500 Body mass index (BMI) [Ratio] 53.76 kg/m2 Tank Anisha DO Work Phone: [facility] 03-10-2024 12:51-0500 Body weight 160.39 kg Tank Anisha DO Work Phone: [facility] 03-10-2024 12:51-0500 Diastolic blood pressure 88 mm[Hg] Tank Anisha DO Work Phone: [facility] 03-10-2024 12:51-0500 Heart rate 81 /min Tank Anisha DO Work Phone: [facility] 03-10-2024 12:51-0500 SaO2% (BldA) [Mass fraction] 96 % Tank Anisha DO Work Phone: [facility] 03-10-2024 12:51-0500 Systolic blood pressure 132 mm[Hg] Tank Anisha DO Work Phone: [facility] 03-04-2024 15:08-0500 Body height 172.7 cm Cheyanne Schilling LAB DIRECTOR Work Phone: [facility] 03-04-2024 15:08-0500 Body mass index (BMI) [Ratio] 53.98 kg/m2 Cheyanne Schilling LAB DIRECTOR Work Phone: [facility] 03-04-2024 15:08-0500 Body weight 161.03 kg Cheyanne Schilling LAB DIRECTOR Work Phone: [facility] 03-04-2024 15:08-0500 Diastolic blood pressure 86 mm[Hg] Cheyanne Schilling LAB DIRECTOR Work Phone: [facility] 03-04-2024 15:08-0500 Heart rate 103 /min Cheyanne Schilling LAB DIRECTOR Work Phone: [facility] 03-04-2024 15:08-0500 SaO2% (BldA) [Mass fraction] 98 % Cheyanne Schilling LAB DIRECTOR Work Phone: [facility] 03-04-2024 15:08-0500 Systolic blood pressure 132 mm[Hg] Cheyanne Schilling LAB DIRECTOR Work Phone: [facility] 02-12-2024 08:56-0400 Blood Pressure Location KAYY THERESA [facility] 02-12-2024 08:56-0400 Body temperature 98.6 [degF] KAYY THERESA [facility] 02-12-2024 08:56-0400 Diastolic blood pressure 89 mm[Hg] KAYY THERESA [facility] 02-12-2024 08:56-0400 Heart rate 75 /min KAYY THERESA [facility] 02-12-2024 08:56-0400 Respiratory rate 16 /min KAYY THERESA [facility] 02-12-2024 08:56-0400 Systolic blood pressure 133 mm[Hg] KAYY THERESA [facility] 02-11-2024 10:34-0400 Body height 172.7 cm Cheyanne Schilling LAB DIRECTOR Work Phone: [facility] 02-11-2024 10:34-0400 Body mass index (BMI) [Ratio] 53.28 kg/m2 Cheyanne Schilling LAB DIRECTOR Work Phone: [facility] 02-11-2024 10:34-0400 Body weight 158.94 kg Cheyanne Schilling LAB DIRECTOR Work Phone: [facility] 02-11-2024 10:34-0400 Diastolic blood pressure 80 mm[Hg] Cheyanne Dardenoll LAB DIRECTOR Work Phone: [facility] 02-11-2024 10:34-0400 Heart rate 76 /min Cheyanne Schilling LAB DIRECTOR Work Phone: [facility] 02-11-2024 10:34-0400 SaO2% (BldA) [Mass fraction] 98 % Cheyanne Schilling LAB DIRECTOR Work Phone: [facility] 02-11-2024 10:34-0400 Systolic blood pressure 138 mm[Hg] Cheyanne Schilling LAB DIRECTOR Work Phone: [facility] 01-15-2024 15:47-0400 Diastolic blood pressure 60 mm[Hg] LAB DIRECTOR-C Alyssa Maxwell Work Phone: [facility] 01-15-2024 15:47-0400 Heart rate 82 /min LAB DIRECTOR-C Alyssa Maxwell Work Phone: [facility] 01-15-2024 15:47-0400 SaO2% (BldA) [Mass fraction] 98 % LAB DIRECTOR-C Alyssa Maxwell Work Phone: [facility] 01-15-2024 15:47-0400 Systolic blood pressure 102 mm[Hg] LAB DIRECTOR-C Alyssa Maxwell Work Phone: [facility] 01-02-2024 10:32-0400 Body weight 159.21 kg LAB DIRECTOR-C Alyssa Maxwell Work Phone: [facility] 01-02-2024 10:32-0400 Diastolic blood pressure 80 mm[Hg] LAB DIRECTOR-C Alyssa Maxwell Work Phone: [facility] 01-02-2024 10:32-0400 Heart rate 81 /min LAB DIRECTOR-C Alyssa Maxwell Work Phone: [facility] 01-02-2024 10:32-0400 SaO2% (BldA) [Mass fraction] 98 % LAB DIRECTOR-C Alyssa Maxwell Work Phone: [facility] 01-02-2024 10:32-0400 Systolic blood pressure 130 mm[Hg] LAB DIRECTOR-C Alyssa Maxwell Work Phone: [facility] 12-11-2023 10:35-0400 Body weight 161.93 kg LAB DIRECTOR-C Alyssa Maxwell Work Phone: [facility] 12-11-2023 10:35-0400 Diastolic blood pressure 60 mm[Hg] LAB DIRECTOR-C Alyssa Maxwell Work Phone: [facility] 12-11-2023 10:35-0400 Heart rate 72 /min LAB DIRECTOR-C Alyssa Maxwell Work Phone: [facility] 12-11-2023 10:35-0400 SaO2% (BldA) [Mass fraction] 97 % LAB DIRECTOR-C Alyssa Maxwell Work Phone: [facility] 12-11-2023 10:35-0400 Systolic blood pressure 102 mm[Hg] LAB DIRECTOR-C Alyssa Maxwell Work Phone: [facility] 09-04-2023 09:23-0400 Body weight 157.16 kg LAB DIRECTOR-C Alyssa Maxwell Work Phone: [facility] 09-04-2023 09:23-0400 Diastolic blood pressure 70 mm[Hg] LAB DIRECTOR-C Alyssa Maxwell Work Phone: [facility] 09-04-2023 09:23-0400 Heart rate 74 /min LAB DIRECTOR-C Alyssa Maxwell Work Phone: [facility] 09-04-2023 09:23-0400 SaO2% (BldA) [Mass fraction] 98 % LAB DIRECTOR-C Alyssa Maxwell Work Phone: [facility] 09-04-2023 09:23-0400 Systolic blood pressure 102 mm[Hg] LAB DIRECTOR-C Alyssa Maxwell Work Phone: [facility] 07-29-2023 15:08-0400 Body temperature 98.42 [degF] KAYY MIRAMONTES [facility] 07-29-2023 15:08-0400 Diastolic blood pressure 88 mm[Hg] KAYY MIRAMONTES [facility] 07-29-2023 15:08-0400 Heart rate 71 /min KAYY THERESA [facility] 07-29-2023 15:08-0400 Respiratory rate 16 /min KAYY THERESA [facility] 07-29-2023 15:08-0400 Systolic blood pressure 138 mm[Hg] KAYY THERESA [facility] 06-04-2023 11:48-0500 Diastolic blood pressure 71 mm[Hg] LAB DIRECTOR-C Alyssa Maxwell Work Phone: [facility] 06-04-2023 11:48-0500 Heart rate 76 /min LAB DIRECTOR-C Alyssa Maxwell Work Phone: [facility] 06-04-2023 11:48-0500 Respiratory rate 16 /min LAB DIRECTOR-C Alyssa Maxwell Work Phone: [facility] 06-04-2023 11:48-0500 SaO2% (BldA) [Mass fraction] 95 % LAB DIRECTOR-C Alyssa Maxwell Work Phone: [facility] 06-04-2023 11:48-0500 Systolic blood pressure 126 mm[Hg] LAB DIRECTOR-C Alyssa Maxwell Work Phone: [facility] 06-04-2023 09:51-0500 Body height 172.72 cm LAB DIRECTOR-C Alyssa Maxwell Work Phone: [facility] 06-04-2023 09:51-0500 Body weight 146.51 kg LAB DIRECTOR-C Alyssa Maxwell Work Phone: [facility] 05-19-2023 15:45-0500 Body height 168.91 cm Asif Cox Other [facility] 05-19-2023 15:45-0500 Body mass index (BMI) [Ratio] 54.69 kg/m2 Asif Cox Other [facility] Other 05-19-2023 15:45-0500 Body weight 156.04 kg Asif Cox Other [facility] Other 05-19-2023 15:45-0500 Body weight 156.03 kg LAB DIRECTOR-C Alyssapollo Arreola Work Phone: [facility] 05-19-2023 15:45-0500 SaO2% (BldA) [Mass fraction] 97 % Asif Cox Other [facility] Other 04-09-2023 10:30-0500 Body height 168.91 cm Destini Kilgore Other [facility] Other 04-09-2023 10:30-0500 Body mass index (BMI) [Ratio] 54.3 kg/m2 Destini Kilgore Other [facility] Other 04-09-2023 10:30-0500 Body weight 154.95 kg Destini Kilgore Other [facility] Other 04-09-2023 10:30-0500 Diastolic blood pressure 87 mm[Hg] Destini Kilgore Other [facility] Other 04-09-2023 10:30-0500 SaO2% (BldA) [Mass fraction] 97 % Destini Kilgore Other [facility] Other 04-09-2023 10:30-0500 Systolic blood pressure 123 mm[Hg] Destini Kilgore Other [facility] Other 01-23-2023 16:00-0400 Body height 168.91 cm Asif Garciaky Other [facility] Other 01-23-2023 16:00-0400 Body mass index (BMI) [Ratio] 53.25 kg/m2 Asif Cox Other [facility] Other 01-23-2023 16:00-0400 Body weight 151.96 kg Asif Cox Other [facility] Other 01-23-2023 16:00-0400 Diastolic blood pressure 90 mm[Hg] Asif Cox Other [facility] Other 01-23-2023 16:00-0400 SaO2% (BldA) [Mass fraction] 97 % Asif Cox Other [facility] Other 01-23-2023 16:00-0400 Systolic blood pressure 140 mm[Hg] Asif Cox Other [facility] Other 01-09-2023 10:30-0400 Body height 168.91 cm Destini Kilgore Other [facility] Other 01-09-2023 10:30-0400 Body mass index (BMI) [Ratio] 53.25 kg/m2 Destini Kilgore Other [facility] Other 01-09-2023 10:30-0400 Body weight 151.96 kg Destini Kilgore Other [facility] Other 01-09-2023 10:30-0400 Diastolic blood pressure 86 mm[Hg] Destini Kilgore Other [facility] Other 01-09-2023 10:30-0400 Systolic blood pressure 124 mm[Hg] Destini Kilgore Other [facility] Other 11-07-2022 13:15-0400 Body height 168.91 cm Asif Cox Other [facility] Other 11-07-2022 13:15-0400 Body mass index (BMI) [Ratio] 55.32 kg/m2 Asif Cox Other [facility] Other 11-07-2022 13:15-0400 Body weight 157.85 kg Asfi Cox Other [facility] Other 11-07-2022 13:15-0400 SaO2% (BldA) [Mass fraction] 95 % Asif Cox Other [facility] Other 10-31-2022 16:00-0400 Body height 168.91 cm Asif Cox Other [facility] Other 10-31-2022 16:00-0400 Body mass index (BMI) [Ratio] 54.62 kg/m2 Asif Cox Other [facility] Other 10-31-2022 16:00-0400 Body weight 155.86 kg Asif Cox Other [facility] Other 10-31-2022 16:00-0400 Diastolic blood pressure 84 mm[Hg] Asif Cox Other [facility] Other 10-31-2022 16:00-0400 SaO2% (BldA) [Mass fraction] 97 % Asif Cox Other [facility] Other 10-31-2022 16:00-0400 Systolic blood pressure 126 mm[Hg] Asif Cox Other [facility] Other 08-07-2022 17:30-0400 Body height 168.91 cm Asif Cox Other [facility] Other 08-07-2022 17:30-0400 Body mass index (BMI) [Ratio] 54.53 kg/m2 Asif Cox Other [facility] Other 08-07-2022 17:30-0400 Body weight 155.58 kg Asif Cox Other [facility] Other 08-07-2022 17:30-0400 Diastolic blood pressure 96 mm[Hg] Asif Cox Other [facility] Other 08-07-2022 17:30-0400 SaO2% (BldA) [Mass fraction] 99 % Asif Cox Other [facility] Other 08-07-2022 17:30-0400 Systolic blood pressure 142 mm[Hg] Asif Cox Other [facility] Other 07-24-2022 10:04-0400 Diastolic blood pressure 76 mm[Hg] LAB DIRECTOR-C Alyssa Maxwell Work Phone: [facility] 07-24-2022 10:04-0400 Heart rate 74 /min LAB DIRECTOR-C Alyssa Maxwell Work Phone: [facility] 07-24-2022 10:04-0400 Respiratory rate 18 /min LAB DIRECTOR-C Alyssa Maxwell Work Phone: [facility] 07-24-2022 10:04-0400 SaO2% (BldA) [Mass fraction] 96 % LAB DIRECTOR-C Alyssa Maxwell Work Phone: [facility] 07-24-2022 10:04-0400 Systolic blood pressure 117 mm[Hg] LAB DIRECTOR-C Alyssa Arreola Work Phone: [facility] 07-24-2022 09:23-0400 Inhaled oxygen flow rate 3 L/min LAB DIRECTOR-C Alyssa Arreola Work Phone: [facility] 07-24-2022 08:46-0400 Body height 172.72 cm LAB DIRECTOR-C Alyssa Arreola Work Phone: [facility] 07-24-2022 08:46-0400 Body weight 136.07 kg LAB DIRECTOR-C Alyssa Arreola Work Phone: [facility] 07-08-2022 15:45-0400 Body height 168.91 cm Asif Cox Other [facility] Other 07-08-2022 15:45-0400 Body mass index (BMI) [Ratio] 56.59 kg/m2 Asif Jackie Other [facility] Other 07-08-2022 15:45-0400 Body weight 161.48 kg Asif Jackie Other [facility] Other 07-08-2022 15:45-0400 Diastolic blood pressure 80 mm[Hg] Asif Cox Other [facility] Other 07-08-2022 15:45-0400 SaO2% (BldA) [Mass fraction] 97 % Asif Cox Other [facility] Other 07-08-2022 15:45-0400 Systolic blood pressure 120 mm[Hg] Asif Cox Other [facility] Other 05-17-2022 10:15-0500 Body height 168.91 cm Asif Cox Other [facility] Other 05-17-2022 10:15-0500 Body mass index (BMI) [Ratio] 55.93 kg/m2 Asif Cox Other [facility] Other 05-17-2022 10:15-0500 Body weight 159.58 kg Asif Cox Other [facility] Other 05-17-2022 10:15-0500 Diastolic blood pressure 86 mm[Hg] Asif Cox Other [facility] Other 05-17-2022 10:15-0500 SaO2% (BldA) [Mass fraction] 96 % Asif Cox Other [facility] Other 05-17-2022 10:15-0500 Systolic blood pressure 132 mm[Hg] Asif Cox Other [facility] Other 04-05-2022 13:15-0500 Body height 168.91 cm Asif Cox Other [facility] Other 04-05-2022 13:15-0500 Body mass index (BMI) [Ratio] 55.64 kg/m2 Asif Cox Other [facility] Other 04-05-2022 13:15-0500 Body weight 158.76 kg Asif Cox Other [facility] Other 04-05-2022 13:15-0500 Diastolic blood pressure 80 mm[Hg] Asif Cox Other [facility] Other 04-05-2022 13:15-0500 SaO2% (BldA) [Mass fraction] 98 % Asif Cox Other [facility] Other 04-05-2022 13:15-0500 Systolic blood pressure 124 mm[Hg] Asif Jackie Other [facility] Other 02-07-2022 14:45-0400 Body height 168.91 cm Asif Cox Other [facility] Other 02-07-2022 14:45-0400 Body mass index (BMI) [Ratio] 55.48 kg/m2 Asif Cox Other [facility] Other 02-07-2022 14:45-0400 Body weight 158.31 kg Asif Cox Other [facility] Other 02-07-2022 14:45-0400 Diastolic blood pressure 80 mm[Hg] Asif Cox Other [facility] Other 02-07-2022 14:45-0400 SaO2% (BldA) [Mass fraction] 94 % Asif Cox Other [facility] Other 02-07-2022 14:45-0400 Systolic blood pressure 126 mm[Hg] Asif Cox Other [facility] Other 01-18-2022 13:15-0400 Body height 168.91 cm Asif Cox Other [facility] Other 01-18-2022 13:15-0400 Body mass index (BMI) [Ratio] 54.84 kg/m2 Asif Cox Other [facility] Other 01-18-2022 13:15-0400 Body weight 156.49 kg Asif Cox Other [facility] Other 01-18-2022 13:15-0400 Diastolic blood pressure 98 mm[Hg] Asif Cox Other [facility] Other 01-18-2022 13:15-0400 SaO2% (BldA) [Mass fraction] 97 % Asif Cox Other [facility] Other 01-18-2022 13:15-0400 Systolic blood pressure 132 mm[Hg] Asif Cox Other [facility] Other 12-17-2021 11:45-0400 Body height 168.91 cm Asif Cox Other [facility] Other 12-17-2021 11:45-0400 Body mass index (BMI) [Ratio] 54.84 kg/m2 Asif Cox Other [facility] Other 12-17-2021 11:45-0400 Body weight 156.49 kg Asif Cox Other [facility] Other 12-17-2021 11:45-0400 Diastolic blood pressure 80 mm[Hg] Asif Cox Other [facility] Other 12-17-2021 11:45-0400 SaO2% (BldA) [Mass fraction] 97 % Asif Cox Other [facility] Other 12-17-2021 11:45-0400 Systolic blood pressure 110 mm[Hg] Asif Cox Other [facility] Other 10-15-2021 10:30-0400 Body height 168.91 cm Asif Cox Other [facility] Other 10-15-2021 10:30-0400 Body mass index (BMI) [Ratio] 54.3 kg/m2 Asif Cox Other [facility] Other 10-15-2021 10:30-0400 Body weight 154.95 kg Asif Cox Other [facility] Other 10-15-2021 10:30-0400 Diastolic blood pressure 70 mm[Hg] Asif Cox Other [facility] Other 10-15-2021 10:30-0400 SaO2% (BldA) [Mass fraction] 98 % Asif Cox Other [facility] Other 10-15-2021 10:30-0400 Systolic blood pressure 110 mm[Hg] Asif Cox Other [facility] Other 09-13-2021 10:45-0400 Body height 168.91 cm Destini Kilgore Other [facility] Other 09-13-2021 10:45-0400 Body mass index (BMI) [Ratio] 54.21 kg/m2 Destini Kilgore Other [facility] Other 09-13-2021 10:45-0400 Body weight 154.68 kg Destini Kilgore Other [facility] Other 09-13-2021 10:45-0400 Diastolic blood pressure 74 mm[Hg] Destini Kilgore Other [facility] Other 09-13-2021 10:45-0400 Systolic blood pressure 124 mm[Hg] Detsini Kilgore Other [facility] Other 08-02-2021 15:30-0400 Body height 168.91 cm Asif Cox Other [facility] Other 08-02-2021 15:30-0400 Body mass index (BMI) [Ratio] 52.71 kg/m2 Asif Cox Other [facility] Other 08-02-2021 15:30-0400 Body weight 150.41 kg Asif Garciaky Other [facility] Other 08-02-2021 15:30-0400 Diastolic blood pressure 82 mm[Hg] Asif Cox Other [facility] Other 08-02-2021 15:30-0400 SaO2% (BldA) [Mass fraction] 97 % Asif Cox Other [facility] Other 08-02-2021 15:30-0400 Systolic blood pressure 134 mm[Hg] Asif Jackie Other [facility] Other 07-09-2021 16:00-0400 Body height 168.91 cm Asif Garciaky Other [facility] Other 07-09-2021 16:00-0400 Diastolic blood pressure 80 mm[Hg] Asif Jackie Other [facility] Other 07-09-2021 16:00-0400 SaO2% (BldA) [Mass fraction] 99 % Asif Cox Other [facility] Other 07-09-2021 16:00-0400 Systolic blood pressure 130 mm[Hg] Asif Cox Other [facility] Other 07-04-2021 15:30-0500 Body height 168.91 cm Mellissa Strange Other [facility] Other 07-04-2021 15:30-0500 Body mass index (BMI) [Ratio] 52.78 kg/m2 Mellissa Strange Other [facility] Other 07-04-2021 15:30-0500 Body weight 150.6 kg Mellissa Strange Other [facility] Other 07-04-2021 15:30-0500 Diastolic blood pressure 96 mm[Hg] Mellissa Strange Other [facility] Other 07-04-2021 15:30-0500 Systolic blood pressure 137 mm[Hg] Mellissa Strange Other [facility] Other 06-07-2021 11:15-0500 Body height 168.91 cm Destini Kilgore Other [facility] Other 06-07-2021 11:15-0500 Body mass index (BMI) [Ratio] 52.48 kg/m2 Destini Kilgore Other [facility] Other 06-07-2021 11:15-0500 Body weight 149.73 kg Destini Kilgore Other [facility] Other 06-07-2021 11:15-0500 Respiratory rate 18 /min Destini Kilgore Other [facility] Other 04-30-2021 15:00-0500 Body height 168.91 cm Asif Cox Other [facility] Other 04-30-2021 15:00-0500 Body mass index (BMI) [Ratio] 51.98 kg/m2 Asif Cox Other [facility] Other 04-30-2021 15:00-0500 Body weight 148.33 kg Asif Cox Other [facility] Other 04-30-2021 15:00-0500 Diastolic blood pressure 74 mm[Hg] Asif Cox Other [facility] Other 04-30-2021 15:00-0500 Systolic blood pressure 116 mm[Hg] Asif Cox Other [facility] Other 04-05-2021 17:00-0500 Body height 168.91 cm Asif Cox Other [facility] Other 04-05-2021 17:00-0500 Body mass index (BMI) [Ratio] 50.93 kg/m2 Asif Cox Other [facility] Other 04-05-2021 17:00-0500 Body weight 145.33 kg Asif Cox Other [facility] Other 03-19-2021 12:15-0500 Body height 168.91 cm Asif Cox Other [facility] Other 03-19-2021 12:15-0500 Body mass index (BMI) [Ratio] 49.92 kg/m2 Asif Cox Other [facility] Other 03-19-2021 12:15-0500 Body weight 142.43 kg Asif Cox Other [facility] Other 03-19-2021 12:15-0500 Diastolic blood pressure 80 mm[Hg] Asif Cox Other [facility] Other 03-19-2021 12:15-0500 Systolic blood pressure 120 mm[Hg] Asif Cox Other [facility] Other 02-26-2021 14:30-0400 Body height 168.91 cm Asif Cox Other [facility] Other 02-26-2021 14:30-0400 Body mass index (BMI) [Ratio] 50.84 kg/m2 Asif Cox Other [facility] Other 02-26-2021 14:30-0400 Body weight 145.06 kg Asif Cox Other [facility] Other 02-26-2021 14:30-0400 Diastolic blood pressure 70 mm[Hg] Asif Cox Other [facility] Other 02-26-2021 14:30-0400 SaO2% (BldA) [Mass fraction] 98 % Asif Cox Other [facility] Other 02-26-2021 14:30-0400 Systolic blood pressure 118 mm[Hg] Asif Cox Other [facility] Other Encounters Encounter Date Encounter Type Care Provider Facility Start: 01-17-2025 End: 01-17-2025 Bamboo flowsheet Shauna STOKES Work Phone: [facility] Start: 01-17-2025 End: 01-17-2025 Bamboo flowsheet Shauna STOKES Work Phone: [facility] Start: 01-17-2025 End: 01-17-2025 Patient encounter procedure Shauna STOKES Work Phone: [facility] Start: 01-17-2025 End: 01-17-2025 Periodic preventive med est patient 40-64yrs Shauna STOKES Work Phone: [facility] Comment on above: Well woman exam with routine gynecological exam; Encounter for screening mammogram for malignant neoplasm of breast; Osteoporosis, post-menopausal ; Asymptomatic menopausal state; Symptoms, such as flushing, sleeplessness, headache, lack of concentration, associated with the menopause Start: 01-17-2025 End: 01-17-2025 ambulatory SHAUNA PICKETT Not Available Start: 12-30-2024 End: 12-30-2024 ambulatory Alyssa Arreola LAB DIRECTOR-C Work Phone: [facility] Work Phone: Start: 12-30-2024 End: 12-30-2024 Patient encounter procedure Asif Cox MD -[facility] Work Phone: Start: 12-02-2024 ambulatory Alexey Maki Facility:[facility] Start: 12-02-2024 Registered Recurring Josselin Maki MD [facility] Start: 09-29-2024 End: 09-29-2024 ambulatory Alyssa Arreola NP-C Work Phone: [facility] Work Phone: Start: 09-29-2024 End: 09-29-2024 Patient encounter procedure Alyssa Arreola NP-C Work Phone: [facility] Work Phone: Start: 09-17-2024 End: 09-17-2024 ambulatory JOSE ELIAS MIRAMONTES Facility:[facility] Start: 09-16-2024 Registered Recurring Alyssa solitario LAB DIRECTOR-C Work Phone: [facility] Start: 09-15-2024 End: 09-15-2024 Office outpatient visit 25 minutes Cheyanne Shakir LAB DIRECTOR Work Phone: [facility] Comment on above: Migraine without aur a and without status migrainosus, not intractable (CMS/HCC) (Primary Dx); CARLOS (obstructive sleep apnea); Lumbar radiculopathy; Degeneration of intervertebral disc of lumbar region, unspecified whether pain present; Neck pain; Polypharmacy; Seizure (CMS/HCC) Start: 09-15-2024 End: 09-15-2024 ambulatory CHEYANNE SCHILLING Not Available Start: 08-12-2024 Non-patient / Non-visit Alyssa Arreola LAB DIRECTOR-C Work Phone: [facility] Work Phone: Start: 08-04-2024 Non-patient / Non-visit Alyssa Arreola LAB DIRECTOR-C Work Phone: [facility] Work Phone: Start: 07-08-2024 End: 07-08-2024 ambulatory Alyssa Arreola LAB DIRECTOR-C Work Phone: [facility] Work Phone: Start: 07-08-2024 End: 07-08-2024 Patient encounter procedure Alyssa Arreola LAB DIRECTOR-C Work Phone: [facility] Work Phone: Start: 06-16-2024 End: 06-16-2024 ambulatory Alyssa Arreola LAB DIRECTOR-C Work Phone: [facility] Work Phone: Start: 06-16-2024 End: 06-16-2024 Patient encounter procedure Alyssa Arreola LAB DIRECTOR-C Work Phone: [facility] Work Phone: Start: 06-03-2024 End: 06-03-2024 Bamboo flowsheet Cheyanne Schilling LAB DIRECTOR Work Phone: [facility] [place] Start: 06-03-2024 End: 06-03-2024 Bamboo flowsheet Cheyanne Schilling LAB DIRECTOR Work Phone: [facility] [place] Start: 06-03-2024 End: 06-03-2024 Office outpatient visit 15 minutes Cheyanne Schilling LAB DIRECTOR Work Phone: [facility] Comment on above: Migraine without aur a and without status migrainosus, not intractable (CMS/HCC) (Primary Dx); CARLOS (obstructive sleep apnea); Lumbar radiculopathy; Degeneration of intervertebral disc of lumbar region, unspecified whether pain present; Neck pain; Polypharmacy; Seizure (CMS/HCC) Start: 06-03-2024 End: 06-03-2024 ambulatory CHEYANNE SCHILLING Not Available Start: 05-26-2024 End: 05-26-2024 Clinisync Result Encounter Cheyanne Schilling LAB DIRECTOR Work Phone: [facility] External Department Unsolicited Start: 05-26-2024 End: 05-26-2024 Clinisync Result Encounter Cheyanne Schilling LAB DIRECTOR Work Phone: [facility] External Department Unsolicited Start: 05-05-2024 End: 05-05-2024 Bamboo flowsheet Cheyanne Schilling LAB DIRECTOR Work Phone: [facility] [place] Start: 05-05-2024 End: 05-05-2024 Bamboo flowsheet Cheyanne Schilling LAB DIRECTOR Work Phone: [facility] [place] Start: 05-05-2024 End: 05-05-2024 Office outpatient visit 25 minutes Cheyanne Schilling LAB DIRECTOR Work Phone: [facility] Comment on above: Migraine without aur a and without status migrainosus, not intractable (CMS/HCC) (Primary Dx); CARLOS (obstructive sleep apnea); Lumbar radiculopathy; Degeneration of intervertebral disc of lumbar region, unspecified whether pain present; Paresthesias; Polypharmacy; Seizure (CMS/HCC) Start: 05-05-2024 End: 05-05-2024 ambulatory CHEYANNE SHAKIR Not Available Start: 04-27-2024 Registered Recurring Alyssa solitario LAB DIRECTOR-C Work Phone: [facility] Start: 03-10-2024 End: 03-10-2024 Bamboo flowsheet Tank Anisha DO Work Phone: [facility] Start: 03-10-2024 End: 03-10-2024 Bamboo flowsheet Tank Anisha DO Work Phone: [facility] Start: 03-10-2024 End: 03-10-2024 Office outpatient visit 25 minutes Tank Lancaster DO Work Phone: [facility] Comment on above: CARLOS (obstructive sle ep apnea) (Primary Dx); Hypoxia; Hypersomnia; Obesity due to excess calories, unspecified class, unspecified whether serious comorbidity present; Snoring Start: 03-10-2024 End: 03-10-2024 ambulatory TANK ANISHA Not Available Start: 03-04-2024 End: 03-04-2024 Office outpatient visit 15 minutes Cheyanne Schilling LAB DIRECTOR Work Phone: [employer] [address] Comment on above: Migraine without aur a and without status migrainosus, not intractable (CMS/HCC) (Primary Dx); CARLOS (obstructive sleep apnea); Lumbar radiculopathy; Paresthesias; Polypharmacy; Seizure (CMS/HCC) Start: 03-04-2024 End: 03-04-2024 ambulatory CHEYANNE SCHILLING Not Available Start: 03-04-2024 End: 03-04-2024 Bamboo flowsheet Cheyanne Schilling LAB DIRECTOR Work Phone: [employer] [address] Start: 03-04-2024 End: 03-04-2024 Bamboo flowsheet Cheyanne Schilling LAB DIRECTOR Work Phone: [employer] [place] [address] Start: 02-25-2024 End: 02-25-2024 Patient encounter procedure LAB DIRECTOR-C Alyssa Arreola Work Phone: [facility] [place] Work Phone: Start: 02-25-2024 End: 02-25-2024 ambulatory LAB DIRECTOR-C Alyssa Lesly Arreola Work Phone: [facility] Work Phone: Start: 02-19-2024 End: 02-19-2024 Bamboo flowsheet Christopher Solitario DO Work Phone: [facility] Start: 02-19-2024 End: 02-19-2024 Bamboo flowsheet Christopher Solitario DO Work Phone: [facility] Start: 02-19-2024 End: 02-19-2024 Patient encounter procedure Joel Jerez DO Work Phone: [facility] Comment on above: Paresthesia (Primary Dx) Start: 02-19-2024 End: 02-19-2024 ambulatory JOEL JEREZ Not Available Start: 02-16-2024 Registered Recurring LAB DIRECTOR-C Alanis Azar Work Phone: [facility] Start: 02-12-2024 End: 02-12-2024 Lab Drop off [facility] Start: 02-12-2024 End: 02-12-2024 ambulatory PA-C KAYY MIRAMONTES Facility:[facility] Start: 02-12-2024 End: 02-12-2024 Patient encounter procedure KAYY MIRAMONTES [facility] Start: 02-11-2024 End: 02-11-2024 Bamboo flowsheet Cheyanne Schilling LAB DIRECTOR Work Phone: [facility] [place] [address] Start: 02-11-2024 End: 02-11-2024 Bamboo flowsheet Cheyanne Schilling LAB DIRECTOR Work Phone: [facility] [address] Start: 02-11-2024 End: 02-17-2024 Telephone encounter Cheyanne Schilling LAB DIRECTOR Work Phone: [facility] Start: 02-11-2024 End: 02-11-2024 Office outpatient visit 25 minutes Cheyanne Schilling LAB DIRECTOR Work Phone: [facility] [place] [facility] Comment on above: Migraine without aur a and without status migrainosus, not intractable (CMS/HCC) (Primary Dx); CARLOS (obstructive sleep apnea); Carpal tunnel syndrome, bilateral; Polypharmacy; Seizure (CMS/HCC) Start: 02-11-2024 End: 02-11-2024 ambulatory CHEYANNE SCHILLING Not Available Start: 01-15-2024 End: 01-15-2024 ambulatory LAB DIRECTOR-C Alyssa Lesly Maxwell Work Phone: [facility] Work Phone: Start: 01-15-2024 End: 01-15-2024 Patient encounter procedure LAB DIRECTOR-C Alyssa Maxwell Work Phone: [facility] Work Phone: Start: 01-06-2024 Registered Recurring LAB DIRECTOR-C Alanis la Maxwell Work Phone: [facility] Start: 01-02-2024 End: 01-02-2024 ambulatory LAB DIRECTOR-C Alyssa Lesly Maxwell Work Phone: [facility] Work Phone: Start: 01-02-2024 End: 01-02-2024 Patient encounter procedure LAB DIRECTOR-C Alyssa Maxwell Work Phone: [facility] [place] Work Phone: Start: 12-16-2023 Registered Recurring LAB DIRECTOR-C Alanis la Maxwell Work Phone: [facility] Start: 12-11-2023 End: 12-11-2023 ambulatory LAB DIRECTOR-C Alyssa Lesly Maxwell Work Phone: [facility] Work Phone: Start: 12-11-2023 End: 12-11-2023 Patient encounter procedure LAB DIRECTOR-C Alyssa Maxwell Work Phone: [facility] Work Phone: Start: 10-15-2023 Registered Recurring LAB DIRECTOR-C Alanis la Maxwell Work Phone: [facility] Start: 09-04-2023 End: 09-04-2023 ambulatory LAB DIRECTOR-C Alyssa Lesly Maxwell Work Phone: [facility] Work Phone: Start: 09-04-2023 End: 09-04-2023 Patient encounter procedure LAB DIRECTOR-C Alyssa Maxwell Work Phone: [facility] Work Phone: Start: 07-29-2023 End: 07-29-2023 ambulatory PA-C KAYY MIRAMONTES [facility] Start: 07-29-2023 End: 07-29-2023 Patient encounter procedure KAYY MIRAMONTES [facility] Start: 07-16-2023 End: 07-16-2023 ambulatory LAB DIRECTOR-C Alyssa Lesly Maxwell Work Phone: [facility] Work Phone: Start: 07-16-2023 End: 07-16-2023 Patient encounter procedure LAB DIRECTOR-C Alyssa Maxwell Work Phone: [facility] Work Phone: Start: 07-15-2023 End: 07-15-2023 ambulatory Hermilo GASTON Facility:[facility] Start: 07-15-2023 End: 07-15-2023 Patient encounter procedure Hermilo [facility] Start: 07-08-2023 End: 07-08-2023 ambulatory PA-C KAYY MIRAMONTES Facility:[facility] Start: 07-08-2023 End: 07-08-2023 Lab Drop off [facility]Y [facility] Start: 07-08-2023 End: 07-08-2023 ambulatory Hermilo R GASTON Facility:[facility] Start: 07-08-2023 End: 07-08-2023 Patient encounter procedure Hermilo Aimee GASTON [facility] Start: 06-24-2023 ambulatory PA-C KAYY MIRAMONTES Facility: [place] Start: 06-24-2023 Registered Recurring LAB DIRECTOR-C Alanis Azar Work Phone: [facility] Start: 06-05-2023 End: 06-05-2023 ambulatory Asif Cox Other [facility] [employer] Other Start: 06-05-2023 Telephone encounter Asif [facility] Start: 06-04-2023 (PROC) PROCEDURE Asif [facility] Out[facility] Start: 06-04-2023 End: 06-04-2023 Admission to same day surgery center LAB DIRECTOR-C Alyssa Arreola Work Phone: [facility] Work Phone: Start: 06-04-2023 End: 06-04-2023 ambulatory LAB DIRECTOR-C Alyssa Arreola Work Phone: [facility] Work Phone: Start: 05-28-2023 End: 05-28-2023 ambulatory PA-C KAYY MIRAMONTES Facility: [place] Start: 05-28-2023 End: 05-28-2023 Patient encounter procedure KAYY MIRAMONTES [facility] Sue Start: 05-19-2023 End: 05-19-2023 Patient encounter procedure LAB DIRECTOR-C Alyssa Arreola Work Phone: [facility] [place] Work Phone: Start: 05-19-2023 End: 05-19-2023 ambulatory LAB DIRECTOR-C Alyssapollo Arreola Work Phone: [facility] Work Phone: Start: 05-19-2023 Office outpatient vi sit 25 minutes Asif Jackie [facility] Start: 05-19-2023 End: 05-19-2023 Patient encounter procedure LAB DIRECTOR-C Alyssa Arreola Work Phone: [facility]- Start: 04-16-2023 End: 04-16-2023 ambulatory Asif Jackie Other [facility] [employer] Other Start: 04-16-2023 Telephone encounter Asif Jackie [facility] Start: 04-09-2023 Office outpatient vi sit 25 minutes Destini Kilgore [facility] Start: 04-09-2023 End: 04-09-2023 ambulatory LAB DIRECTOR-C Alyssa Arreola Work Phone: [facility] Work Phone: Start: 04-09-2023 End: 04-09-2023 Patient encounter procedure LAB DIRECTOR-C Alyssa Arreola Work Phone: [facility] [place] Work Phone: Start: 04-09-2023 End: 04-09-2023 Patient encounter procedure LAB DIRECTOR-C Alyssa Arreola Work Phone: [facility] Work Phone: Start: 03-06-2023 Registered Recurring LAB DIRECTOR-C Alanis Azar Work Phone: [facility] Start: 02-25-2023 Registered Recurring LAB DIRECTOR-C Alanis Azar Work Phone: [facility] Start: 01-23-2023 End: 01-23-2023 ambulatory Asif [facility] Other [place] Other Start: 01-23-2023 Patient encounter procedure Asif [facility] Start: 01-09-2023 End: 01-09-2023 ambulatory Destini Kilgore Other [place] Other Start: 01-09-2023 Office outpatient vi sit 25 minutes Destini Kilgore [facility] Start: 11-07-2022 End: 11-07-2022 ambulatory Asifjohn Cox Other [place] Other Start: 11-07-2022 Office outpatient vi sit 25 minutes Asifjohn [facility] Start: 10-31-2022 End: 10-31-2022 ambulatory Asif Cox Other [place] Other Start: 10-31-2022 Office outpatient vi sit 25 minutes Asifjohn [facility] Start: 08-26-2022 End: 08-27-[address] MARTI JEREZ . Facility:[facility] Start: 08-07-2022 End: 08-07-2022 ambulatory Asif [facility] Other [place] Other Start: 08-07-2022 Office outpatient vi sit 15 minutes Asif [facility] Start: 08-05-2022 End: 08-05-[address] MARTI JEREZ . Facility:[facility] Start: 07-24-2022 (PROC) PROCEDURE Asif Cox [facility] OutPt Start: 07-24-2022 End: 07-24-2022 Admission to same day surgery center LAB DIRECTOR-Jess Arreola Work Phone: [facility] Work Phone: Start: 07-24-2022 End: 07-24-2022 ambulatory LAB DIRECTOR-C Alyssa Lesly Maxwell Work Phone: [facility] Work Phone: Start: 07-14-2022 End: 07-14-2022 ambulatory FRANNIE BURTON . Facility:[facility] Start: 07-08-2022 Office outpatient vi sit 25 minutes Asif Jackie [facility] Start: 07-08-2022 End: 07-08-2022 ambulatory LAB DIRECTOR-C Alyssa Lesly Maxwell Work Phone: [facility] Work Phone: Start: 07-08-2022 End: 07-08-2022 Patient encounter procedure LAB DIRECTOR-C Alyssa Maxwell Work Phone: [facility] Work Phone: Start: 05-20-2022 End: 05-20-[address] MARTI JEREZ . Facility:[facility] Start: 05-17-2022 End: 05-17-2022 ambulatory Asif Jackie Other [place] Other Start: 05-17-2022 Office outpatient vi sit 25 minutes Asif Jackie [facility] Start: 05-01-2022 End: 05-25-2022 ambulatory ASIF JACKIE Facility:[facility] Start: 04-05-2022 Office outpatient vi sit 25 minutes Asif Jackie [facility] Start: 04-05-2022 End: 04-05-2022 ambulatory LAB DIRECTOR-C Alyssa Lesly Maxwell Work Phone: [facility] [employer] Other Start: 04-05-2022 End: 04-05-2022 Patient encounter procedure LAB DIRECTOR-C Alyssa Maxwell Work Phone: [facility] Start: 03-18-2022 End: 03-19-2022 ambulatory ALYSSA MAXWELL Facility:[facility] Start: 02-07-2022 End: 02-07-2022 ambulatory Asif Jackie Other [place] Other Start: 02-07-2022 Patient encounter procedure Asif [facility] Start: 01-18-2022 End: 01-18-2022 ambulatory Asif Cox Other [place] Other Start: 01-18-2022 Office outpatient vi sit 25 minutes Asifjohn [facility] [place] Start: 12-24-2021 End: 12-24-2021 Patient encounter procedure LAB DIRECTOR-C Alyssa Arreola Work Phone: [facility] Start: 12-17-2021 End: 12-17-2021 ambulatory Asif Cox Other [facility] [employer] Other Start: 12-17-2021 Office outpatient vi sit 25 minutes Asif [facility] Start: 11-26-2021 ambulatory ALYSSA ARREOLA Facility: [facility] Start: 11-22-2021 End: 11-23-[address] MARTI JEREZ . Facility:[facility] Start: 11-21-2021 End: 11-22-2021 ambulatory SUSIE ESTRADA Facility:[facility] Start: 10-23-2021 End: 10-23-[address] NUBIA WHYTE . Facility:[facility] Start: 10-16-2021 End: 11-23-2021 ambulatory ALYSSA ARREOLA Facility:[facility] Start: 10-15-2021 End: 10-15-2021 ambulatory Asif [facility] Other [place] Other Start: 10-15-2021 Office outpatient vi sit 25 minutes Asif [facility] Start: 10-15-2021 End: 10-15-2021 Patient encounter procedure LAB DIRECTOR-C Alyssa Arreola Work Phone: [facility] Start: 10-12-[address] MARTI JEREZ . Facili ty:[facility] Start: 10-09-2021 End: 10-09-2021 Lab Drop [facility] Start: 10-09-2021 End: 10-09-2021 Patient encounter procedure Cipriano Romero Jr. [facility] [place] Start: 09-19-2021 End: 09-19-2021 ambulatory Destini Kilgore Other [place] Other Start: 09-19-2021 Telephone encounter Destini Kilgore [facility] Start: 09-13-2021 End: 09-13-2021 ambulatory Destini Kilgore Other [place] Other Start: 09-13-2021 Office outpatient vi sit 15 minutes Destini Kilgore [facility] Start: 09-06-2021 End: 09-06-2021 ambulatory ALYSSA ARREOLA Facility:[facility] Start: 09-04-2021 End: 09-05-2021 ambulatory ALYSSA ARREOLA Facility:[facility] Start: 08-15-2021 (Procedure) Short Asif Jackie [facility] Medical OutPt Start: 08-15-2021 End: 08-15-2021 ambulatory Asifjohn Cox Other [place] Other Start: 08-09-2021 End: 08-09-2021 Lab Drop off [facility] Start: 08-09-2021 End: 08-09-2021 Patient encounter procedure KAYY MIRAMONTES [facility] [place] Start: 08-02-2021 End: 08-02-2021 ambulatory Asif Cox Other [place] Other Start: 08-02-2021 Office outpatient vi sit 25 minutes Asif Jackie [facility] Start: 07-09-2021 End: 07-09-2021 ambulatory Mellissa Strange Other [place] Other Start: 07-09-2021 Office outpatient vi sit 25 minutes Asif Jackie [facility] Start: 07-09-2021 Telephone encounter Mellissa Strange [facility] Start: 07-04-2021 End: 07-04-2021 ambulatory Mellissa Strange Other [place] Other Start: 07-04-2021 Office outpatient ne w 30 minutes Mellissa Strange [facility] Start: 06-07-2021 End: 06-07-2021 ambulatory Destini Kilgore Other [place] Other Start: 06-07-2021 Office outpatient vi sit 25 minutes Destini Kilgore [facility] Start: 05-08-2021 (Procedure) [place] Asif [facility] Start: 05-08-2021 End: 05-08-2021 ambulatory Asif Jackie Other [place] Other Start: 04-30-2021 End: 04-30-2021 ambulatory Asif Jackie Other [place] Other Start: 04-30-2021 Office outpatient vi sit 25 minutes Asif Jackie [facility] Start: 04-26-2021 End: 04-27-2021 ambulatory AB [facility] Facility:[facility] Start: 04-19-2021 (Procedure) Short Asif [facility] Start: 04-19-2021 End: 04-19-2021 ambulatory Asif Jackie Other [place] Other Start: 04-05-2021 End: 04-05-2021 ambulatory Asif Jackie Other [place] Other Start: 04-05-2021 Office outpatient vi sit 25 minutes Asif Cox [facility] Start: 03-29-2021 (Procedure) Short Asif [facility] Start: 03-29-2021 End: 03-29-2021 ambulatory Asif [facility] Other [facility] [employer] Other Start: 03-19-2021 End: 03-19-2021 ambulatory Asif Cox Other [place] Other Start: 03-19-2021 Office outpatient vi sit 25 minutes Asif Cox [facility] Start: 03-07-2021 (Procedure) Enzo [facility] Out[facility] Start: 03-07-2021 End: 03-07-2021 ambulatory Asif Cox Other [place] Other Start: 02-26-2021 End: 02-26-2021 ambulatory Asif Cox Other [place] Other Start: 02-26-2021 Office outpatient vi sit 25 minutes Asif [facility] Procedures Date Procedure Procedure Detail Performing Clinician Start: 05-26-2024 Mri spinal canal cer vical w/o contrast matrl Cheyanne Schilling LAB DIRECTOR Work Phone: Start: 02-25-2024 MR lumbar spine wo con LAB DIRECTOR-C Alyssa rAreola Work Phone: Start: 02-19-2024 End: 02-19-2024 Needle emg ea extremty w/paraspinl area complete Cheyanne Schilling LAB DIRECTOR Work Phone: Start: 12-11-2023 X-ray of both knees LAB DIRECTOR- C Alyssa Arreola Work Phone: Start: 07-15-2023 Injection of botulin um toxin type A into detrusor muscle of urinary bladder KAYY MIRAMONTES Start: 06-04-2023 DH Nerve Radio Frequ ency (Bilateral) LAB DIRECTOR-C Alyssa Arreola Work Phone: Start: 05-19-2023 X-ray of lumbar spin e, four views LAB DIRECTOR-C Alyssa Arreola Work Phone: Start: 04-09-2023 Plain X-ray of left hip LAB DIRECTOR-C Alyssa Arreola Work Phone: Start: 08-05-2022 Microscopic observat ion [Identifier] in Cervix by Cyto stain Cheyanne Schilling LAB DIRECTOR Work Phone: Start: 07-24-2022 DH Nerve Radio Frequ ency (Bilateral) LAB DIRECTOR-C Alyssa Arreola Work Phone: Start: 07-08-2022 Plain X-ray of right shoulder LAB DIRECTOR-C Alyssa Arreola Work Phone: Start: 04-05-2022 X-ray of cervical spine LAB DIRECTOR-C Alyssa Arreola Work Phone: Start: 12-24-2021 MR thoracic spine wo con LAB DIRECTOR-C Alysas Arreola Work Phone: Start: 10-15-2021 Radiography of thora cic spine LAB DIRECTOR-C Alyssa Arreola Work Phone: Start: 02-20-2021 Cystoscopy KAYY Mims AILYN Start: 01-04-2020 Cystoscopy KAYY Mims AILYN Start: 06-02-2018 cysto/ botox KAYY Mims RAVINDERKalyan Start: 01-28-2017 cystoscopy KAYY Mims AILYN back surgery KAYY CROWERY carpel tunnel release SAGE MIRAMONTES cesearian section KAYY ROBERTSON Cholecystectomy KAYY CALDERON D&C KAYY MIRAMONTES H/O: tubal ligation KAYY MIRAMONTES Plan of Treatment Date Care Activity Detail Author Start: 01-23-2026 End: 01-23-2026 Patient encounter procedure 01/23/2026 1:00 PM EDT Procedure Visit JENI CROCKER [address] [place] [id number] Shauna Pickett PA [address] [place] [address] JENI CROCKER Start: 08-05-2025 Screening for malignant neoplasm of cervix [facility] Start: 03-16-2025 End: 03-16-2025 Patient encounter procedure JENI [facility] [address] Start: 01-17-2025 End: 01-17-2026 DXA Skeletal system Views for bone density DEXA bone density Imaging Routine Osteoporosis, post-menopausal Expected: 01/17/2025 (Approximate), Expires: 01/17/[address] [facility] Comment on above: Expected: 01/17/2025 (Approximate), Expires: 01/17/2026 Start: 01-17-2025 End: 03-19-2026 MG Breast - bilateral Screening Bilateral screening mammogram Imaging Routine Encounter for screening mammogram for malignant neoplasm of breast Expected: 01/17/2025 (Approximate), Expires: 03/19/[address] [facility] Work Phone: Comment on above: Expected: 01/17/2025 (Approximate), Expires: 03/19/2026 Start: 01-17-2025 End: 01-17-2025 Patient encounter procedure 01/17/2025 1:30 PM EDT Procedure Visit JENI CROCKER [address] [place] [id number] Shauna Pickett PA [address] [place] [address] Arrived JENI CROCKER Comment on above: Arrived Start: 01-05-2025 End: 01-05-2025 Patient encounter procedure 01/05/2025 11:00 AM EDT Office Visit KRISTI VALLE [address] [place] [phone] Cheyanne Schilling NP [address] [place] [phone] KRISTI VALLE Start: 12-27-2024 Influenza vaccination [facility] Start: 09-15-2024 End: 09-15-2024 Patient encounter procedure 09/15/2024 9:40 AM EDT Office Visit KRISTI VALLE [address] [place] [address] Cheyanne Schilling NP [address] [place] [address] KRISTI VALLE Start: 06-03-2024 End: 06-03-2024 Patient encounter procedure RKISTI VALLE Comment on above: Arrived Start: 05-05-2024 [...] procedure 03/04/2024 3:40 PM EST Office Visit [facility] [place] [address] [place] [address] Cheyanne Schilling NP [address] [place] [address] Arrived [facility] [address] Comment on above: Arrived Start: 02-19-2024 End: 02-19-2024 Patient encounter procedure [facility] Comment on above: Arrived Start: 02-11-2024 End: 02-10-2025 EMG 2 Extremities EMG 2 Extremities Neurology Routine Carpal tunnel syndrome, bilateral Expected: 02/11/2024 (Approximate), Expires: 02/10/2025 [facility] Work Phone: Comment on above: Expected: 02/11/2024 (Approximate), Expires: 02/10/2025 Start: 02-11-2024 End: 02-11-2024 Patient encounter procedure 02/11/2024 10:40 AM EDT Office Visit [facility] [address] [place] [address] Cheyanne Schilling NP [address] [place] [address] Migraine without aura and without status migrainosus, not intractable (CMS/HCC) (Primary Dx); CARLOS (obstructive sleep apnea); Lumbar radiculopathy; Fibromyalgia; Polypharmacy [facility] [address] Comment on above: Migraine without aur a and without status migrainosus, not intractable (CMS/HCC) (Primary Dx); CARLOS (obstructive sleep apnea); Lumbar radiculopathy; Fibromyalgia; Polypharmacy Start: 12-28-2023 Influenza vaccination Influenza Vacc ine (#1) [facility] Start: 06-04-2023 [facility] [facility] Start: 07-24-[address] [facility] Start: 2009 Screening for malignant neoplasm of breast Mammogram [facility] Start: 12-24-1999 Screening for malignant neoplasm of cervix HPV/Cotest [facility] Start: 1969 Screening for malignant neoplasm of colon [facility] MR Lumbar spine WO contrast [facility] Patient Education Jackie Non Diagn ostic Block [facility] Work Phone: Patient referral [facility] Work Phone: THIN PREP TIS PAP AN D HR HPV DNA THIN PREP TIS PAP AND HR HPV DNA Pathology and Cytology Routine Well woman exam with routine gynecological exam Ordered: 01/17/2025 [facility] Comment on above: Ordered: 01/17/2025 XR Knee - bilateral [address] [facility] Immunizations Immunization Date Immunization Notes Care Provider Yassine sheldon 10-07-2021 COVID-19 Comirnaty (Pfizer) Tri-Sucrose 12+ LAB DIRECTOR-C Alyssa Arreola Work Phone: [facility] 10-07-2021 SARS-CoV-2 mRNA (ylzccnietif-gcnc-zpxv ose) vaccine KAYY MIRAMONTES [facility] 10-07-2021 zoster vaccine recombinant KAYY MIRAMONTES [facility] 2020 SARS-CoV-2 (COVID-19 ) mRNA BNT-162b2 vax KAYY MIRAMONTES [facility] 12-02-2020 SARS-CoV-2 (COVID-19 ) mRNA BNT-[id number] vax KAYY MIRAMONTES [facility] 01-09-2015 influenza virus vaccine, unspecified formulation KAYY MIRAMONTES [facility] 01-09-2015 influenza, injectabl e, quadrivalent, preservative free LAB DIRECTOR-C Alyssa Arreola Work Phone: [facility] NEGATED: Highlighted row has not occurred!07-31-2020 influenza virus vaccine, unspecified formulation KAYY MIRAMONTES [facility] Payers Date Payer Category Payer Self-pay [id number] 2022 Medicaid [employer] [id number] 2022 Medicaid [id number] 1970 Unknown [id number] 2.16.840.1.382541.3.579.2.647 1969 Unknown [id number] 2.16.840.1.195892.3.579.2.593 1969 Unknown [id number] 2.16.840.1.474106.3.579.2.593 1969 Unknown [id number] 2.16.840.1.203233.3.579.2.593 1969 Unknown [id number] 2.16.840.1.069851.3.579.2.593 1969 Unknown [id number] 2.16.840.1.872041.3.579.2.593 1969 Unknown [id number] 2.16.840.1.090658.3.579.2.593 1969 Unknown [id number] 2.16.840.1.081425.3.579.2.593 1969 Unknown [id number] 2.16.840.1.220315.3.579.2.593 1969 Unknown [id number] 2.16.840.1.996966.3.579.2.593 1969 Unknown [id number] 2.16.840.1.159385.3.579.2.593 1969 Unknown [id number] 2.16.840.1.560381.3.579.2.593 1969 Unknown [id number] 2.16.840.1.286399.3.579.2.593 1969 Unknown [id number] 2.16.840.1.674021.3.579.2.593 1969 Unknown [id number] 2.16.840.1.815990.3.579.2.593 1969 Unknown [id number] 2.16.840.1.268565.3.579.2.727 1969 Unknown [id number] 2.16.840.1.156241.3.579.2.727 1969 Unknown [id number] 2.16.840.1.574094.3.579.2.727 1969 Unknown [id number] 2.16.840.1.935023.3.579.2.727 1969 Unknown [id number] 2.16.840.1.255161.3.579.2.727 1969 Unknown [id number] 2.16.840.1.919435.3.579.2.727 1969 Unknown [id number] 2.16.840.1.622581.3.579.2.727 1969 Unknown [id number] 2.16.840.1.738160.3.579.2.727 1969 Unknown [id number] 2.16.840.1.177919.3.579.2.727 1969 Unknown [id number] 2.16.840.1.265068.3.579.2.727 1969 Unknown [id number] 2.16.840.1.624730.3.579.2.1259 1969 Unknown [id number] 2.16.840.1.298374.3.579.2.1259 1969 Unknown [id number] 2.16.840.1.741799.3.579.2.1259 1969 Unknown [id number] 2.16.840.1.164408.3.579.2.1259 1969 Unknown [id number] 2.16.840.1.826101.3.579.2.9 1969 Unknown [id number] 2.16.840.1.827369.3.579.2.1259 1969 Unknown [id number] 2.16.840.1.711755.3.579.2.9 1969 Unknown [id number] 2.16840.1.486913.3.579.2.1259 1959 Unknown [id number] Self-pay Self Pay Cosmetic/Pain Mgmt [id number] Unknown [id number] 2..840.1.045275.19 Unknown [place] [employer]/BS [id number] Unknown [place]/BS [id number] Unknown [id number] 2.16.840.1.694119.3.579.2.531 Unknown [id number] 2.16.840.1.543702.3.579.2.531 Social History Date Type Detail Facility Start: 12-29-2020 End: 09-24-2023 Tobacco smoking status Never smoked tobacco (finding) [facility] Other Start: 09-24-2023 End: 05-05-2024 Sex Assigned At Female [facility] 1-800-DENTIST Other Start: 08-29-2021 End: 06-16-2024 Tobacco smoking status SDIS Ex-smoker (finding) [facility] Start: 1970 Sex Assigned At Female F [facility] Tobacco smoking status Never [facility] Start: 09-24-2023 Tobacco use and exposure Smokeless tobacco non-user [facility] Start: 09-24-2023 End: 03-04-2024 Alcoholic beverage intake Lifetime non-drinker (finding) [facility] Start: 09-24-2023 End: 05-05-2024 History of Social function [facility] Start: 1970 Sex assigned at Not on file [facility] Start: 05-05-2024 End: 01-17-2025 Alcoholic beverage intake Ex-drinker (finding) [facility] Start: 06-16-2024 End: 09-29-2024 Sex Female (finding) [facility] Goals Date Patient Goal Desired Activity /State Functional Status Date Assessment Result Facility 02-12-2024 Functional Status N/A [facility] 07-29-2023 Functional Status N/A [facility] 07-15-2023 Functional Status N/A [facility] 05-28-2023 Functional Status N/A [facility] Sue Clinical Notes 03-19-2021 to 01-17-2025 DIVYA Kyle - 01/17/2025 1:30 PM ROBBIETSamauri cShilling NP - 09/15/2024 9:40 AM EDT Note Date & Type Note Facility 01-17-2025 History of Presen t illness Narrative Reason for Appointment: Patient ID: Shailesh Blake is a 54 y.o. female who presents for Gynecologic Exam Patient presents today for Annual Exam. MEDICATIONS Current Outpatient Medications Medication Instructions acetaZOLAMIDE (DIAMOX) 250 mg, Daily albuterol HFA 90 mcg/act inhaler 1 puff, Every 4 hours PRN cryvgpb-jjnbwdlekvcrd-hsrdwtte (Excedrin Migraine) 250-250-65 MG tablet 2 tablets, [...] no more than six doses per month. ALLERGIES Allergies Allergen Reactions Aspirin Other [...] nursing note reviewed. Exam conducted with a radio dispatcher present. Vitals: Estimated body mass index is 51.7 kg/m as calculated from the following: Height as [...] Pap was obtained without difficulty and patient given mammogram orderDexa scan to have scheduled/obtained. We will send in Bijuva. Orders Placed This Encounter Procedures Bilateral screening mammogram DEXA bone density Follow Up: Patient is to return in one year for annual unless needed otherwise. Documented by Chanelle Souza LPN on behalf of: DIVYA Kyle documented in this encounter [facility] 09-15-2024 History of Presen t illness Narrative Images from the original note were not included. Chief Complaint Patient presents with Migraine Back Pain Subjective Shailesh Blake is a 53 y.o. female. History of Present Illness The patient presents today for follow-up. She states her migraines have worsened since the prior neurology appointment. 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 She has not returned to the [facility] since the prior neurology appointment. She denies [...] extensors , and wrist flexor strength 5/5. Corncob Pipes Assembler strength 4+/5. LUE strength deltoid , biceps , triceps , wrist extensors , and wrist flexor strength 5/5. [employer]cob P[employer] Assembler strength 4+/5. RLE strength iliopsoas, quadriceps, tibialis [...] reflex 0. LLE knee reflex 0. Coordination: Ewyrwh-lz-tusl testing normal. Rapid alternating movements are normal. [...] EMG of the bilateral upper extremities at [facility] on 02/23/24: Normal. No evidence [...] of the lumbar spine w/o contrast at [facility] on 05/19/23: No fractures or subluxation. No pathologic movement on flexion or extension. There is mild intervertebral disc height loss at L3-L4, L4-L5, and L5-S1. Facet degenerative changes are present throughout the lower lumbar spine. The sacrum and sacroiliac joints are normal. MRI of the brain w and w/o contrast at [facility] on 05/15/23: No acute intracranial process. Scattered nonenhancing T2 hyperintense white matter lesions which are nonspecific, typically attributed to prior trauma/inflammation/demyelination, or chronic ischemia associated with migraine/atherosclerosis. Nasal sinus disease. MRI of the lumbar spine w/o contrast at [facility] on 02/14/21: See report for full details. [...] with both Dr. Cox (pain management) and [facility] with positive response. PLAN: - Follow up with pain management and [facility] for management - She is taking [...] - Follow up with pain management and [facility] for management Polypharmacy PLAN: - Consider dose reduction or discontinuation of any unnecessary medications with outside providers Seizure ([facility]) The patient reportedly had one seizure [...] for new or worsening symptoms. DL Lemus [facility] documented in this encounter [facility] 07-08-2024 Evaluation note Diagnosis Onset Date Resolution Chronic pain acute July 08, 2024 2:53pm Lumbar radiculopathy acute 2024 2:53pm Primary osteoarthritis of left knee acute July 08, 2024 2:53pm Cervical spondylosis acute September 29, 2024 10:32am Chronic pain acute September 29 10:32am Lumbar radiculopathy acute September 29, 2024 10:32am Primary osteoarthritis of left knee acute September 29, 2024 10:32am Primary osteoarthritis of right knee acute September 29, 2024 10:32am [facility] Work Phone: 1(344) 576-224102-19-2025 Evaluation note* Diagnosis Onset Date Resolution Status Admit Date Chronic pain acute May 9:07am Primary osteoarthritis of le ft knee acute June 16, 2 025 9:07am Primary osteoarthritis of ri ght knee acute June 16 2 025 9:07am Chronic pain acute July 08, 2024 2:53pm Lumbar radiculopathy acute [place] [facility] 2024 2:53pm Primary osteoarthritis of le ft knee acute July 08, 2024 2:53pm [facility] Work Phone: 1(327) 820-100702-06-2025 History of Present illness Narrative* Cheyanne Schilling NP - 06/03/2024 1:20 PM EST Images from the original note were not included. Chief Complaint Patient presents with Migraine Neck Pain Subjective Shailesh Blaek is a 53 y.o. female. History of [...] She has not been back to the [facility] recently due to weather andsnow. She states she will return as soon as the snow clears up. She states they were doing physicaltherapy, acupuncture, cupping, chiropractic manipulation, and trigger point injections at [facility] which all helped to adequately control her [...] extensors , and wrist flexor strength 5/5. Corncob Pipes Assembler strength 4+/5. LUE strength deltoid , biceps , triceps , wrist extensors , and wrist flexor strength 5/5. Corncob Pipes Assembler strength 4+/5. RLE strength iliopsoas, quadriceps, tibialis [...] reflex 0. LLE knee reflex 0. Coordination: Qpdcag-bn-dgao testing normal. Rapid alternating movements are normal. [...] EMG of the bilateral upper extremities at [facility] on 02/23/24: Normal. No evidence [...] of the lumbar spine w/o contrast at [facility] on 05/19/23: No fractures or subluxation. No pathologic movement on flexion or extension. There is mild intervertebral disc height loss at L3-L4, L4-L5, and L5-S1. Facet degenerative changes are present throughout the lower lumbar spine. The sacrum and sacroiliac joints are normal. MRI of the brain w and w/o contrast at [facility] on 05/15/23: No acute intracranial process. Scattered nonenhancing T2 hyperintense white matter lesions which are nonspecific, typically attributed to prior trauma/inflammation/demyelination, or chronic ischemia associated with migraine/atherosclerosis. Nasal sinus disease. MRI of the lumbar spine w/o contrast at [facility] on 02/14/21: See report for full details. [...] management) but has since transitioned care to [facility] with positive response. PLAN: - Follow up with [facility] for management - She is taking [...] secondary to fibromyalgia - Follow up with [facility] for management Polypharmacy PLAN: - Consider dose reduction or discontinuation of any unnecessary medications with outside providers Seizure ([facility]) The patient reportedly had one seizure [...] [facility] documented in this encounter[facility] [id number] History of Present illness Narrative* Cheyanne Schilling NP - 05/05/2024 11:20 AM EST Images [...] does not drop objects. She isfollowing with [facility] for her neck and low back [...] Pain in limb Peripheral neuropathy Seizure disorder ([facility]) Tension type headache Past Surgical History: Procedure [...] extensors , and wrist flexor strength 5/5. Corncob Pipes Assembler strength 4+/5. LUE strength deltoid , biceps , triceps , wrist extensors , and wrist flexor strength 5/5. Corncob Pipes Assembler strength 4+/5. RLE strength iliopsoas, quadriceps, tibialis [...] reflex 0. LLE knee reflex 0. Coordination: Lyakqd-ag-lqgz testing normal. Rapid alternating movements are normal. Gait: Normal. Steady. Review and summary of old records: EMG of the bilateral upper extremities at [facility] on 02/23/24: Normal. No evidence [...] of the lumbar spine w/o contrast at [facility] on 05/19/23: No fractures or subluxation. No pathologic movement on flexion or extension. There is mild intervertebral disc height loss at L3-L4, L4-L5, and L5-S1. Facet degenerative changes are present throughout the lower lumbar spine. The sacrum and sacroiliac joints are normal. MRI of the brain w and w/o contrast at [facility] on 05/15/23: No acute intracranial process. Scattered nonenhancing T2 hyperintense white matter lesions which are nonspecific, typically attributed to prior trauma/inflammation/demyelination, or chronic ischemia associated with migraine/atherosclerosis. Nasal sinus disease. MRI of the lumbar spine w/o contrast at [facility] on 02/14/21: See report for full details. [...] plans to pick these up in our [place] office tomorrow. I educated the patient on [...] management) but has since transitioned care to [facility] with positive response. PLAN: - Follow up with [facility] for management - She is taking [...] the patient's symptoms - Follow up with [facility] for management Polypharmacy PLAN: - Consider dose reduction or discontinuation of any unnecessary medications with outside providers Seizure ([facility]) The patient reportedly had one seizure [...] [facility] documented in this encounterM[facility]. [id number] Instructions* Patient Instructions* Cheyanne Schilling NP - 05/05/2024 11:20 AM EST - MRI of the cervical spine ([facility]) - Start Zavzpret as directed for acute migraine treatment. Do not take concurrently with Nurtec documented in this [facility]11-13-2024 History of Present illness Narrative* Tank Lancaster, - 03/10/2024 1:15 PM EST Images from the original note were not included. Chief Complaint Patient presents with Sleep Apnea Subjective Shailesh Brandon Blake, 53 y.o., female here for follow [...] download we are trying to get 1from [employer]. She likely is taking off and not [...] Plan Trying to obtain a download from [employer] Her sleep study was once again reviewed with her with her oxygen going down to 78 percent Wear the CPAP machine whenever sleeping including naps The patient was counseled on the need for aggressive diet, exercise, and weight loss. The patient was counseled on the risks of stroke, NH, and sudden with CARLOS, along with the [...] once we get it. documented in this encounterMosaic [facility] at St. JosephYluhzyozjy20-21-4328 History of Present illness Narrative* Cheyanne Schilling NP - 03/04/2024 3:40 PM EST Images from the original note were not included. Cheyanne Schilling NP Chief Complaint Patient presents with Migraine Tingling Subjective Shailesh Blake is a 53 y.o. female. History of Present Illness Shailesh presents today for follow up. She had an EMG of the bilateral upper extremities completed forreview. She had 7 to 8 migraine days [...] states pain management referred her to the [facility] where they are doing injections and [...] wrist extensors , wrist flexor , and orthopedic physical therapist strength 5/5. LUE strength deltoid , biceps , triceps , wrist extensors , wrist flexor , and orthopedic physical therapist strength 5/5. RLE strength iliopsoas, quadriceps, tibialis [...] reflex 0. LLE Knee reflex 0. Coordination: Zcnrwu-gr-swih testing normal. Rapid alternating movements are normal. Gait: Normal. Review and summary of old records: EMG of the bilateral upper extremities at [facility] on 02/23/24: Normal. No evidence [...] of the lumbar spine w/o contrast at [facility] on 05/19/23: No fractures or subluxation. No pathologic movement on flexion or extension. There is mild intervertebral disc height loss at L3-L4, L4-L5, and L5-S1. Facet degenerative changes are present throughout the lower lumbar spine. The sacrum and sacroiliac joints are normal. MRI of the brain w and w/o contrast at [facility] on 05/15/23: No acute intracranial process. Scattered nonenhancing T2 hyperintense white matter lesions which are nonspecific, typically attributed to prior trauma/inflammation/demyelination, or chronic ischemia associated with migraine/atherosclerosis. Nasal sinus disease. MRI of the lumbar spine w/o contrast at [facility] on 02/14/21: See report for full details. [...] Follow up with pain management and the [facility] - She is taking gabapentin 400 [...] management - Continue physical therapy at the [facility] Polypharmacy PLAN: - Consider dose reduction or discontinuation of any unnecessary medications with outside providers Seizure ([facility]) The patient reportedly had one seizure [...] [facility] documented in this [facility]11-07-2024 Instructions* Patient Instructions* Cheyanne Schilling NP - 03/04/2024 3:00 PM EST - Continue physical therapy documented in this [facility]10-24-2024 History of Present illness Narrative* EVETTE Sanchez - 02/19/2024 12:30 PM EDT Images from the original note were not included. Reason for Appointment: EMG Patient: Shailesh Blake : 1970 EMG Computer: [employer] Referring Physician: Dr. Joel Jerez EMG: BUE sightseeing guide: Wenceslao Gale RT(R) Office Location: [place] Reason for EMG: c/o pain in bilateral hands/forearms L>R, neck pain into bilateral shoulders. Hxof CTR on right. Pt states Borderline DM. Not on blood thinners. Comments: Procedure was explained to the patient who expressed understanding. Patient appeared to have tolerated the test well despite some discomfort due to the nature of the test. documented in this encounterMosaic [facility] at St. [id number] Telephone encounter Note* Telephone Encounter - Kelly Carty MA - 02/17/2024 10:32 AM EDT Patient picked this up on 02/10 and has refills on file with the pharmacy and they said she should be able to knot picker cloth it uo every 30 days. [facility] [id number] Miscellaneous Notes* Telephone Encounter - Kelly Carty MA - 02/17/2024 10:32 AM EDT Patient picked this up on 02/10 and has refills on file with the pharmacy and they said she should be able to knot picker cloth it uo every 30 days. * Telephone Encounter - Carol Sheridan MA - 02/11/2024 1:24 PM EDT PA request was in epic, I did this on [facility] but got this response: Electronic prior [...] needs a prior authorization. documented in this encounterMosaic [facility] at St. [id number] Evaluation + Plan note Diagnostic Tests Pending * Urine Culture 02/12[facility] [id number] Hospital Discharge instructions Patient Education 02/12/2024 09:43:47 [...] your health care provider. General instructions Take meao-egc-aeqouzw and prescription medicines only as told by [...] provider. Document Revised: 01/01/2021 Document Reviewed: 01/01/2021 [employer] Patient Education 2023 [employer]. Follow Up Care 07/29/2023 15:25:11 With:KAYY MIRAMONTES PA-C, URL Address: [address] [facility] [place] [address] Business (1) When: Unknown Comments:pending results of imaging/testing, will call with next steps [facility] 10-17-2024 NotePatient Education Obstetrics and Gynecology Overactive [...] health care provider. General instructions ? Take qkdx-vyr-zpxbcph and prescription medicines only as told by [...] help your health care (more content not included)...[facility]10-16-2024 Telephone encounter Note* Telephone Encounter - Carol Sheridan MA - 02/11/2024 1:24 PM EDT PA request was in [facility], I did this on [facility] but got this response: Electronic prior authorization not supported as a duplicate PA was found. If requesting a dose increase or requesting above quantity limits, please submit via other methods. [facility] JosephDttkkqzkdo36-49-8849 Telephone encounter Note* Telephone Encounter - Cheyanne Schilling NP - 02/11/2024 12:39 PM EDT I prescribed Nurtec at the patient's prior appointment. She states her pharmacy dispensed one 30-day prescription to her and then no further refills. Are you able to look into this please? I did reorder the medication today. Not sure if it just needs a prior authorization. [facility] [id number] History of Present illness Narrative* Cheyanne Schilling NP - 02/11/2024 10:40 AM EDT Images from the original note were not included. Cheyanne Schilling NP Chief Complaint Patient presents with Migraine Back Pain Subjective Sahilesh Blake is a 53 y.o. female. HPI [...] a migraine. She does not take any wvyc-ydo-urgouct medications for her migraines because she is [...] wrist extensors , wrist flexor , and orthopedic physical therapist strength 5/5. LUE strength deltoid , biceps , triceps , wrist extensors , wrist flexor , and orthopedic physical therapist strength 5/5. RLE strength iliopsoas, quadriceps, tibialis [...] reflex 0. LLE Knee reflex 0. Coordination: Kxqxep-ui-drcd testing normal. Rapid alternating movements are normal. Gait: Normal. Review and summary of old records: X-ray of the lumbar spine w/o contrast at [facility] on 05/19/23: No fractures or subluxation. No pathologic movement on flexion or extension. There is mild intervertebral disc height loss at L3-L4, L4-L5, and L5-S1. Facet degenerative changes are present throughout the lower lumbar spine. The sacrum and sacroiliac joints are normal. MRI of the brain w and w/o contrast at [facility] on 05/15/23: No acute intracranial process. Scattered nonenhancing T2 hyperintense white matter lesions which are nonspecific, typically attributed to prior trauma/inflammation/demyelination, or chronic ischemia associated with migraine/atherosclerosis. Nasal sinus disease. MRI of the lumbar spine w/o contrast at [facility] on 02/14/21: See report for full details. [...] any unnecessary medications with outside providers Seizure ([facility]) The patient reportedly had one seizure [...] NP [facility] documented in this encounterM[facility]. [id number] Instructions* Patient Instructions* Cheyanne Schilling NP - 02/11/2024 10:40 AM EDT - EMG of the bilateral upper extremities - Will prescribe bilateral cock-up wrist splints to wear at bedtime - Follow up with pain management for back pain documented in this [facility]04-02-2024 Hospital Discharge instructions Patient Education 07/29/2023 15:05:16 [...] your health care provider. General instructions Take sbnw-fic-ebpuuca and prescription medicines only as told by [...] provider. Document Revised: 01/01/2021 Document Reviewed: 01/01/2021 [employer] Patient Education 2022 [employer]. Follow Up Care 06/06/2023 14:46:16 With:KAYY MIRAMONTES PA-C, URL Address: [address] [facility] [place] [address] When:Within 6 Month(s) Comments:Pt to call and cancel if asymptomatic. [facility] 03-19-2024 Hospital Discharge instructions Patient Education 07/15/2023 [...] With:Hermilo GASTON Address: [facility] [address], [place] [address]- Business (1) When:07/29/2023 08:51:07 Comments:With Whit Miramontes and [facility]03-19-2024 Note [id number] R [facility] 07-15-2023 NoteCustom Cystoscopy with Botox injection ? [...] if you have a fever over 100 degrees.[facility] 06-05-2023 Evaluation note* Encounter Date Diagnosis Assessment Notes Treatment Notes Treatment Clinical Notes May, Fibromyalgia (ICD-10 - M79.7) [facility] 02-07-[address] [facility] Discharge instructions Patient Education 05/28/2023 [...] including vitamins, herbs, eye drops, creams, and nenq-cyb-mabmymz medicines. Any problems you or family members [...] provider tells you to take them. Taking gdku-brf-hljexuv medicines, vitamins, herbs, and supplements. General instructions [...] Follow these instructions at home: Medicines Take pjgg-xab-vnozial and prescription medicines only as told by [...] provider. Document Revised: 10/19/2021 Document Reviewed: 10/19/2021 [employer] Patient Education 2022 [employer]. 05/28/2023 16:17:08 Urinary Incontinence Urinary Incontinence Urinary [...] nerve stimulation). ?For women, using a medical assisting program director to prevent urine leaks. This is a [...] right after experiencing incontinence. General instructions Take earp-khq-lkbkddu and prescription medicines only as told by [...] important. Where to find more information National [place] of Diabetes and Digestive and Kidney Diseases: www.niddk.nih.gov [place] [employer]: www.urologyhealth.org Contact a health care [...] provider. Document Revised: 11/17/2020 Document Reviewed: 11/17/2020 [employer] Patient Education 2022 [employer]. Follow Up Care 04/22/2023 13:23:48 With:THERESA MOCTEZUMA, KAYY Buenrostro, URL Address: [address] [place] [phone] When: Unknown Comments:sched cysto or Botox [facility] 01-22-2024 Evaluation note* Encounter Date [...] (ICD-10 - M79.7) Continue medications as prescribed [facility] Other 12-13-2023 Evaluation note* Encounter Date Diagnosis [...] medication related side effects. UDS performed through [employer] today, will await confirmatory results. [facility] Other 09-28-2023 Evaluation note* Encounter Date Diagnosis [...] pain (ICD-10 - G89.29) Continue taking medications [facility] Other 09-14-2023 Evaluation note* Encounter Date Diagnosis [...] 400 mg, two to three times daily [facility] Other 07-13-2023 Evaluation note* Encounter Date Diagnosis [...] close to needing a refill of Gabapentin [facility] 07-06-2023 Evaluation note* Encounter Date Diagnosis [...] Stable. Oct, Sacroiliitis (ICD-10 - M46.1) Stable. [facility] Other 04-12-2023 Evaluation note* Encounter Date Diagnosis [...] - M46.1) Follow up in 4 weeks [facility] Other 03-29-[address] [facility] note* Encounter Date Diagnosis Assessment [...] Proceed with updated imaging of the shoulder. [facility] Other 01-20-2023 Evaluation note* Encounter Date Diagnosis [...] Proceed with updated imaging of the shoulder. [facility] Other 12-09-2022 Evaluation note* Encounter Date Diagnosis [...] schedule her next appointment to refill this. [facility] 10-13-2022 Evaluation note* Encounter Date Diagnosis [...] M47.817) Stable. Continue with current treatment plan. [facility] Other 09-23-2022 Evaluation note* Encounter Date Diagnosis [...] - G89.29) Continue taking Gabapentin as prescribed. [facility] Other 08-22-2022 Evaluation note* Encounter Date Diagnosis [...] - G89.29) Continue taking Gabapentin as prescribed. [facility] 06-20-2022 Evaluation note* Encounter Date Diagnosis [...] to use as tolerated for pain relief. [facility] 06-14-2022 Evaluation + Plan note Diagnostic Tests Pending * Urine Culture 10/09[facility]21 [facility] Evaluation [facility]* Encounter Date Diagnosis Assessment [...] time. August, Chronic pain (ICD-10 - G89.29) [facility] Other [id number] Evaluation + Plan note Diagnostic Tests Pending * Urine Culture 08/09/21 [facility]04-14-2022 Hospital Discharge instructions Patient Education 08/09/2021 [...] fried and sweet foods. General instructions Take qoml-byf-liabxlo and prescription medicines only as told by [...] 02/08/2010 Document Revised: 08/05/2019 Document Reviewed: 04/30/2018 [employer] Patient Education 2020 [employer]. Follow Up Care 07/11/2021 12:59:04 With:KAYY MIRAMONTES PA-C, URL Address: [address] [place] [phone] When: Unknown [facility] 04-07-2022 Evaluation note* Encounter Date [...] time. Jul, Chronic pain (ICD-10 - G89.29) [facility] Other 03-14-2022 Evaluation note* Encounter Date Diagnosis [...] (ICD-10 - G89.29) Continue medications as prescribed [facility] Other 03-09-2022 Evaluation note* Encounter Date Diagnosis Assessment Notes Treatment Notes Treatment Clinical Notes Jun, GERD (gastroesophageal reflux disease) (ICD-10 - K21.9) Jun, Irritable bowel syndrome with constipation (ICD-10 - K58.1) Jun, Morbid obesity (ICD-10 - E66.01) [facility] 02-10-2022 Evaluation note* Encounter Date Diagnosis [...] (ICD-10 - G89.29) Continue medications as prescribed [facility] 12-09-2021 Evaluation note* Encounter Date Diagnosis [...] (ICD-10 - G89.29) Continue medications as prescribed [facility] Other 11-22-2021 Evaluation note* Encounter Date Diagnosis [...] (ICD-10 - G89.29) Continue medications as prescribed [facility] Other Evaluation + Plan note No data available for this section [facility] Evaluation + Plan note Future Appointments Appointment Date:07/15/2023 08:30:00 AM Scheduled Provider: Location:[facility] Appointment Type:Urology FT Appointment Date:07/29/2023 02:40:00 PM Scheduled Provider:KAYY MIRAMONTES PA-C Location:[facility] Appointment Type:URO Office Visit Diagnostic Tests Pending * [facility] Future Appointments Appointment Date:07/15/2023 08:30:00 AM Scheduled Provider: Location:[facility] Appointment Type:Urology FT Appointment Date:07/29/2023 02:40:00 PM Scheduled Provider:KAYY MIRAMONTES PA-C Location:[facility] Appointment Type:URO Office Visit [facility] evaluation + Plan note Future Appointments Appointment Date:07/29/2023 02:40:00 PM Scheduled Provider:KAYY MIRAMONTES PA-C Location:[facility]ment Type:[facility] Appointments Appointment Date:02/03/2024 08:20:00 AM Scheduled Provider:KAYY MIRAMONTES PA-C Location:[facility] Appointment Type:URO Office Visit [facility] evaluation noteNortAmnis Other Evaluation noteNo InformationNort [employer], [employer] Other Evaluation noteNortAmnis Other Evaluation noteNo assessment information available [facility] Work Phone: evaluation note* Diagnosis Onset Date Resolution Status Chronic pain acute Fibromyalgia acute Lumbosacral spondylosis without myelopathy acute Sacroiliitis acute [facility] Work Phone: evaluation note* Diagnosis Onset Date Resolution Status Chronic pain acute Fibromyalgia acute Lumbosacral spondylosis without myelopathy acute Sacroiliitis acute Chronic pain acute Fibromyalgia acute Lumbosacral spondylosis without myelopathy acute Osteoarthritis of both knees acute Sacroiliitis acute Thoracic spondylosis acute [facility] Work Phone: evaluczetc note* Diagnosis Onset Date Resolution Status Chronic pain acute Fibromyalgia acute Lumbosacral spondylosis without myelopathy acute Osteoarthritis of both knees acute Sacroiliitis acute [facility] Work Phone: evaluation note* Diagnosis Onset Date Resolution Status Chronic pain acute Fibromyalgia acute Lumbosacral spondylosis without myelopathy acute Osteoarthritis of both knees acute Sacroiliitis acute Chronic pain acute Lumbar radiculopathy acute Primary osteoarthritis of left knee acute Primary osteoarthritis of right knee acute [facility] Work Phone: evaluation note* Diagnosis Onset Date Resolution Status Chronic pain acute Fibromyalgia acute Lumbosacral spondylosis without myelopathy acute Osteoarthritis of both knees acute Sacroiliitis acute Chronic pain acute Lumbar radiculopathy acute Primary osteoarthritis of left knee acute Primary osteoarthritis of right knee acute Chronic pain acute Primary osteoarthritis of left knee acute Primary osteoarthritis of right knee acute [facility] Work Phone: Evaluation note* Diagnosis Migraine without aura and without status migrainosus, not intractable (CMS/HCC)- Primary CARLOS (obstructive sleep apnea) Obstructive sleep apnea (adult) (pediatric) Carpal tunnel syndrome, bilateral Carpal tunnel syndrome Polypharmacy Issue of repeat prescriptions Seizure (CMS/HCC) Other convulsions documented in this encounter [facility]* Diagnosis Paresthesia- Primary Disturbance of skin sensation documented in this encounter [facility] HealthcareEvaluation [facility]* Diagnosis Migraine without aura and without status migrainosus, not intractable (CMS/HCC)- Primary CARLOS (obstructive sleep apnea) Obstructive sleep apnea (adult) (pediatric) Lumbar radiculopathy Thoracic or lumbosacral neuritis or radiculitis, unspecified Paresthesias Disturbance of skin sensation Polypharmacy Issue of repeat prescriptions Seizure ([facility]) Other convulsions documented in this encounter [facility] HealthcareEvaluation note* Diagnosis CARLOS (obstructive sleep apnea)- Primary Obstructive sleep apnea (adult) (pediatric) Hypoxia Hypoxemia Hypersomnia Hypersomnia, unspecified Obesity due to excess calories, unspecified class, unspecified whether serious comorbidity present Snoring Other dyspnea and respiratory abnormality documented in this encounter [facility] HealthcareEvaluation note* Diagnosis Migraine without aura and without status migrainosus, not intractable (CMS/HCC)- Primary CARLOS (obstructive sleep apnea) Obstructive sleep apnea (adult) (pediatric) Lumbar radiculopathy Thoracic or lumbosacral neuritis or radiculitis, unspecified Degeneration of intervertebral disc of lumbar region, unspecified whether pain present Paresthesias Disturbance of skin sensation Polypharmacy Issue of repeat prescriptions Seizure ([facility]) Other convulsions documented in this encounter [facility] HealthcareEvaluation note* Diagnosis Migraine without aura and without status migrainosus, not intractable (CMS/HCC)- Primary CARLOS (obstructive sleep apnea) Obstructive sleep apnea (adult) (pediatric) Lumbar radiculopathy Thoracic or lumbosacral neuritis or radiculitis, unspecified Degeneration of intervertebral disc of lumbar region, unspecified whether pain present Neck pain Cervicalgia Polypharmacy Issue of repeat prescriptions Seizure ([facility]) Other convulsions documented in this encounter [facility] HealthcareEvaluation note* Diagnosis Onset Date Resolution Status Admit Date Chronic pain acute May 9:07am Primary osteoarthritis of le ft knee acute June 16, 025 9:07am Primary osteoarthritis of ri ght knee acute June 16 025 9:07am [facility] Work Phone: Evaluation note* Diagnosis Migraine without aura and without status migrainosus, not intractable (CMS/HCC)- Primary CARLOS (obstructive sleep apnea) Obstructive sleep apnea (adult) (pediatric) Lumbar radiculopathy Thoracic or lumbosacral neuritis or radiculitis, unspecified Degeneration of intervertebral disc of lumbar region, unspecified whether pain present Neck pain Cervicalgia Polypharmacy Issue of repeat prescriptions Seizure ([facility]) Other convulsions documented in this encounter [facility] HealthcareEvaluation note* Diagnosis Well woman exam with routine gynecological exam Routine gynecological examination Encounter for screening mammogram for malignant neoplasm of breast Osteoporosis, post-menopausal Senile osteoporosis Asymptomatic menopausal state Symptoms, such as flushing, sleeplessness, headache, lack of concentration, associated with the menopause documented in this encounter [facility] HealthcareHistory general Narrative - ReportedNoColomob [employer] Other Hislign general Narrative - Reported* Type Description Date [...] History ENDOMETRIAL ABLATION Surgical History WISDOM TEETH [facility] Other History general Narrative - ReportedG[facility] Other History general Narrative - ReportedNoCol[employer] Other History general Narrative - Reported* Type [...] History WISDOM TEETH Hospitalization History see above [facility] Other Hospital Discharge instructions No data available for this section [facility] No data available for this section [facility] reason for referral (narrative)No reason for referral [facility] Work Phone: Summary Purpose Family History No Family History [...] 9:07am Primary osteoarthritis of left knee Febr 2024 9:07am Primary osteoarthritis of right knee Feb [facility] 2024 9:07am Chief Complaint Admit Date April 27, 2024 8:20am med refill June 16, 2024 9:07am steroid injection L knee/med refill [facility] 2024 2:53pm Reason for Visit Admit Date Chronic pain June 16, 2024 9:07am Primary osteoarthritis of left knee Febr 2024 9:07am Primary osteoarthritis of right knee [...] osteoarthritis of right knee Sanket 2024 10:32am Chief Complaint Admit Date December 02, 2024 10: 00am MED REFILL/ bilat knee steroid injection December 30, 2024 2:50pm Additional Source Comments INFORMATION SOURCE (unrecogn ized section and content) DATE CREATED AUTHOR 05/03/2021 [facility] DATE CREATED AUTHOR AUTHOR'S ORGANIZ ATION 08/30/2022 [facility] DATE CREATED AUTHOR AUTHOR'S ORGANIZ ATION 02/14/2024 [facility] DATE CREATED AUTHOR AUTHOR'S ORGANIZ ATION 02/16/2024 [facility] DATE CREATED AUTHOR AUTHOR'S ORGANIZ ATION 09/23/2024 [facility] DATE CREATED AUTHOR AUTHOR'S ORGANIZ ATION 09/24/2024 [facility] DATE CREATED AUTHOR AUTHOR'S ORGANIZ ATION 09/30/2024 [facility] DATE CREATED AUTHOR AUTHOR'S ORGANIZ ATION 2024 [facility] DATE CREATED AUTHOR AUTHOR'S ORGANIZ ATION 01/18/2025 [facility] EPIC Care Team (unrecognized sect ion and content) Team Status: Active Member Role Status Dates MATTHIAS Altamirano Primary Care Provider Active Team Status: Active Member Role Status Dates MATTHIAS Altamirano Primary Care Provider Active Start: December 02, 2024 Alexey Maki MD Attending Provider Active Start: December 02, 2024 Team Status: Inactive Member Role Status Dates MATTHIAS Altamirano Primary Care Provider Active Start: December 30, 2024 End: December 30, 2024 Asif Cox MD Attending Provider Active Sta rt: December 30, 2024 End: December 30, 2024 Team Status: Inactive Member Role Status Dates Alyssa Arreola LAB DIRECTOR-C Primary Care Provider Active Start: July 08, 2024 End: July 08, 2024 Asif Cox MD Attending Provider Active Sta rt: July 08, 2024 End: July 08, 2024 Team Status: Active Member Role Status Dates Alyssa Arreola LAB DIRECTOR-C Primary Care Pr ovider, Attending Provider Active Start: August 04, 2024 Team Status: Active Member Role Status Dates Alyssa Arreola LAB DIRECTOR-C Primary Care Provider Active Start: August 12, 2024 Jolene Morales LPN Attending Provider Active S tart: August 12, 2024 Team Status: Active Member Role Status Dates Alyssa Arreola LAB DIRECTOR-C Primary Care Provider Active Start: September 16, 2024 Alexey Maki MD Attending Provider Active Start: September 16, 2024 Team Status: Inactive Member Role Status Dates Alyssa Arreola LAB DIRECTOR-C Primary Care Provider Active Start: September 29, 2024 End: September 29, 2024 Destini Kilgore , LAB DIRECTOR Attending Provider Active Start: September 29, 2024 End: September 29, 2024 Team Status: Active Member Role Status Dates Alyssa Arreola LAB DIRECTOR-C Primary Care Provider Active Start: April 27, 2024 Alexey Maki MD Attending Provider Active Start: April 27, 2024 Team Status: Inactive Member Role Status Dates Alyssa Arreola LAB DIRECTOR-C Primary Care Provider Active Start: June 16, 2024 End: June 16, 2024 Destini Kilgore , LAB DIRECTOR Attending Provider Active Start: June 16, 2024 End: June 16, 2024 Team Status: Inactive Member Role Status Dates Alyssa Arreola LAB DIRECTOR-C Primary Care Provider Active Start: December 11, 2023 End: December 11, 2023 Destini Kilgore , LAB DIRECTOR Attending Provider Active Start: December 11, 2023 End: December 11, 2023 Team Status: Active Member Role Status Dates Alyssa Arreola LAB DIRECTOR-C Primary Care Provider Active Start: December 16, 2023 Alexey Maki MD Attending Provider Active Start: December 16, 2023 Team Status: Inactive Member Role Status Dates Alyssa Arreola LAB DIRECTOR-C Primary Care Provider Active Start: January 02, 2024 End: January 02, 2024 Asif Cox MD Attending Provider Active Sta rt: January 02, 2024 End: January 02, 2024 Team Status: Active Member Role Status Dates Alyssa Arreola LAB DIRECTOR-C Primary Care Provider Active Start: June 24, 2023 Alexey Maki MD Attending Provider Active Start: June 24, 2023 Team Status: Inactive Member Role Status Dates Alyssa Arreola LAB DIRECTOR-C Primary Care Provider Active Start: July 16, 2023 End: July 16, 2023 Asif Cox MD Active Start: [facility] 2023 End: July 16, 2023 Destini Kilgore NP Attending Provider Active Start: July 16, 2023 End: July 16, 2023 Team Status: Inactive Member Role Status Dates Alyssa Arreola LAB DIRECTOR-C Primary Care Provider Active Start: September 04, 2023 End: September 04, 2023 Destini Kilgore NP Attending Provider Active Start: September 04, 2023 End: September 04, 2023 Team Status: Inactive Member Role Status Dates Asif Cox MD Attending Provider Active Sta rt: May 19, 2023 End: May 19, 2023 Team Status: Inactive Member Role Status Dates Alysas Arreola LAB DIRECTOR-C Primary Care Provider Active Start: May 19, 2023 End: May 19, 2023 Asif Cox MD Attending Provider Active Sta rt: May 19, 2023 End: May 19, 2023 Team Status: Inactive Member Role Status Dates Alyssa Arreola LAB DIRECTOR-C Primary Care Provider Active Start: June 04, 2023 End: June 04, 2023 Asif Cox MD Attending Provider Active Sta rt: June 04, 2023 End: June 04, 2023 Team Status: Active Member Role Status Dates Alyssa Arreola LAB DIRECTOR-C Primary Care Provider Active Start: February 25, 2023 Alexey Maki MD Attending Provider Active Start: February 25, 2023 Team Status: Inactive Member Role Status Dates Destini Kilgore , LAB DIRECTOR Attending Provider Active Start: April 09, 2023 End: April 09, 2023 Team Status: Inactive Member Role Status Dates Alyssa Arreola LAB DIRECTOR-C Primary Care Provider Active Start: April 09, 2023 End: April 09, 2023 Destini Kilgore LAB DIRECTOR Attending Provider Active Start: April 09, 2023 End: April 09, 2023 Team Status: Inactive Member Role Status Dates Alyssa Arreola LAB DIRECTOR-C Primary Care Provider Active Asif Cox MD Attending Provider Active Team Status: Inactive Member Role Status Dates Alyssa Arreola LAB DIRECTOR-C Primary Care Provider Active Destini Kilgore LAB DIRECTOR Attending Provider Active Team Status: Active Member Role Status Dates Alyssa Arreola LAB DIRECTOR-C Primary Care Provider Active Start: March 06, 2023 Alexey Maki MD Attending Provider Active Start: March 06, 2023 Team Status: Active Member Role Status Dates Alyssa Arreola LAB DIRECTOR-C Primary Care Provider Active Start: October 15, 2023 Alexey Maki MD Attending Provider Active Start: October 15, 2023 Team Status: Active Member Role Status Dates Alysas Arreola LAB DIRECTOR-C Primary Care Provider Active Start: January 06, 2024 Alexey Maki MD Attending Provider Active Start: January 06, 2024 Team Status: Inactive Member Role Status Dates Alyssa Arreola , LAB DIRECTOR-C Primary Care Provider Active Start: January 15, 2024 End: January 15, 2024 Asif Cox MD Attending Provider Active Sta rt: January 15, 2024 End: January 15, 2024 Cafeteria Worker Relationship Specialty Start Date End Date Alyssa Arreola MD [address] [place] [address] Referring Physician Family Medicine 09/24/23 Cafeteria Worker Relationship Specialty Start Date End Date Alyssa Arreola MD [address] [place], [place] [id number] Referring Physician Family Medicine 09/24/23 Cafeteria Worker Relationship Specialty Start Date End Date Alyssa Arreola MD [address] [place], [place] [id number] Referring Physician Family Medicine 09/24/23 Cafeteria Worker Relationship Specialty Start Date End Date Alyssa Arreola MD [address] [place], [place] [id number] Referring Physician Family Medicine 09/24/23 Team Status: [...] February 25, 2024 End: February 25, 2024 Cafeteria Worker Relationship Specialty Start Date End Date Alyssa Arreola MD [address] [place], [place] [id number] Referring Physician Family Medicine 09/24/23 Joel Jerez DO [address] [id number] Referring Physician Neurology 03/04/24 Cafeteria Worker Relationship Specialty Start Date End Date Alyssa Arreola MD [address] [place], [place] [id number] Referring Physician Family Medicine 09/24/23 Joel Jerez DO [address] [id number] Referring Physician Neurology 03/04/24 Cafeteria Worker Relationship Specialty Start Date End Date Alyssa Arreola MD [address] [place], [place] [id number] Referring Physician Family Medicine 09/24/23 Joel Jerez DO [address] [place] [id number] Referring Physician Neurology 03/04/24 Cafeteria Worker Relationship Specialty Start Date End Date Unallocated, Jeni Dahl MD [facility] [place] [address] PCP - General Family Medicine 05/05/24 Alyssa Arreola MD [address] [place], [place] [id number] Referring Physician Family Medicine 09/24/23 Joel Jerez DO [address] [place] [address] Referring Physician Neurology 03/04/24 Cafeteria Worker Relationship Specialty Start Date End Date Unallocated, Jeni Dahl MD [address] [place] [id number] PCP - General Family Medicine 05/05/24 Alyssa Arreola MD [address] [place] [phone] Referring Physician Family Medicine 09/24/23 Joel Jerez DO [address] [place] [phone] Referring Physician Neurology 03/04/24 Cafeteria Worker Relationship Specialty Start Date End Date Unallocated, Jeni Dahl MD [facility] [place] [address] PCP - General Family Medicine 05/05/24 Alyssa Arreola MD [address] [place] [phone] Referring Physician Family Medicine 09/24/23 Joel Jerez DO [address] [place] [id number] Referring Physician Neurology 03/04/24 Cafeteria Worker Relationship Specialty Start Date End Date Unallocated, Jeni Dahl MD [facility] [place] [address] PCP - General Family Medicine 05/05/24 Alyssa Arreola MD [address] [place], [place] [phone] Referring Physician Family Medicine 09/24/23 Joel Jerez DO [address] [place] [address] Referring Physician Neurology 03/04/24 Cafeteria Worker Relationship Specialty Start Date End Date Unallocated, Jeni Dahl MD [address] [place] [phone] PCP - General Family Medicine 05/05/24 Alyssa Arreola MD [address] [place] [phone] Referring Physician Family Medicine 09/24/23 Joel Jerez DO [address] [place] [id number] Referring Physician Neurology 03/04/24 Cafeteria Worker Relationship Specialty Start Date End Date Unallocated, Jeni Dahl MD [facility] [place] [address] PCP - General Family Medicine 05/05/24 Alyssa Arreola MD [address] [place] [phone] Referring Physician Family Medicine 09/24/23 Joel Jerez DO [address] [place] [address] Referring Physician Neurology 03/04/24 REASON FOR VISIT (unrecogniz ed section and content) Reason Comments Migraine Back Pain Reason Comments Migraine Tingling Reason Comments Sleep Apnea Reason Comments Migraine Tingling Reason Comments Migraine Neck Pain Reason Comments Gynecologic Exam Goals (unrecognized section and content) Goals may [...] BE BASED ON THE PRIMARY CLINICAL RECORDS. [employer] provides no warranty or guarantee of the accuracy or completeness of information in this document.
[2025-01-24 22:13] LABS: Age Gdln ACOG Testing Note (.); HPV Genotype 18,45 Negative (Negative); IGP, Aptima HPV, rfx 16/18,45 Note (.)
== END 2025-01-17 07:35 | disposition home or self-care (01) ==
LOC: LAB 07:34
PROVIDERS: PCP Nurse Practitioner Family; Visit Provider Physician Assistant
DX: Z01.419 Encounter for gynecological examination (general) (routine) without abnormal findings (principal)
CPT/HCPCS: 87624; 87625; 88175

== ENCOUNTER 2025-01-28 09:10 | Outpatient (OUT) | payer MEDICAID, SELFPAY ==
--- OUTSIDE RECORDS SUMMARY | 2025-01-17 13:30 | XMS_ITS | Encounter Summary ---
Author Organization [facility] Healthcare Address [address] [place] [address] Care Team Providers Care Trouble Operator Name Role Phone Alyssa Juarez MD Unavailable [phone] Leon Jerez DO Unavailable [phone] Unallocated, Jeni Provider Primary Care Provi kallie Reason for Referral * Medications - Denied Specialty Diagnoses / Procedures Referred By Contac t Referred To Contact Diagnoses Symptoms, such as flushing, sleeplessness, headache, lack of concentration, associated with the menopause Shauna Pickett PA [address] [place], [facility] Phone: tel: fax: Referral ID Status Reason Start Date Expiration Date Visits Re quested Visits Authorized [id number] Denied 1 1 Reason for Visit * Reason Comments Gynecologic Exam Encounter Details Date Type Department Care Team (Latest Contact Info) Description 01/17/2025 1:30 PM EDT Procedure Visit [facility] [address] [facility] [place] [address] Shauna Pickett PA [address] [facility] [address] [place], [place] [address] Well woman exam with routine gynecological exam; Encounter for screening mammogram for malignant neoplasm of breast; Osteoporosis, post-menopausal ; Asymptomatic menopausal state; Symptoms, such as flushing, sleeplessness, headache, lack of concentration, associated with the menopause Social History Tobacco Use Types Packs/Day Years Used Date Smoking Tobacco: Never Smokeless Tobacco: Never Alcohol Use Standard Drinks/Week Comments Not Currently 0 (1 standard drink = 0.6 oz pur e alcohol) Comments No Sex and Gender Information Value Date Recorded Sex Assigned at Not on file Legal Sex Female 6:38 PM EDT Gender Identity Not on file Sexual Orientation Not on file documented as of this encounter Last Filed Vital Signs Vital Sign Reading Time Taken Comments Blood Pressure 130/78 01/17/2025 1:18 PM EDT Pulse - - Temperature - - Respiratory Rate - - Oxygen Saturation - - Inhaled Oxygen Concentration - - Weight 154 kg (340 lb) 01/17/2025 1:18 PM EDT Height 172.7 cm (5' 8 ) 01/17/2025 1:18 PM EDT Body Mass Index 51.7 01/17/2025 1:18 PM EDT documented in this encounter Progress Notes * DIVYA Kyle - 01/17/2025 1:30 PM EDT Reason for Appointment: Patient ID: Shailesh Blake is a 54 y.o. female who presents for Gynecologic Exam Patient presents today for Annual Exam. MEDICATIONS Current Outpatient Medications Medication Instructions acetaZOLAMIDE (DIAMOX) 250 mg, Daily albuterol HFA 90 mcg/act inhaler 1 puff, Every 4 hours PRN miawini-blgtcykcrqbbt-xcukzglt (Excedrin Migraine) 250-250-65 MG tablet 2 tablets, Every 8 hours PRN busPIRone (BUSPAR) 10 mg, 2 times daily cetirizine (ZYRTEC ALLERGY) 10 mg, Daily cyanocobalamin (VITAMIN B-12) 1,000 mcg, Daily diclofenac sodium 2 g, 4 times daily dicyclomine (BENTYL) 20 mg, 4 times daily PRN Elastic Bandages & Supports (Wrist Splint/Cock-Up/Left L) misc Wear left cock-up wrist splint at bedtime fluticasone (Flonase) 50 MCG/ACT nasal spray 1 spray, Daily gabapentin (NEURONTIN) 400 mg, 3 times daily Ingrezza 80 mg, Daily lamoTRIgine (LaMICtal) 100 MG tablet 1 tablet, Daily lamoTRIgine (LaMICtal) 200 MG tablet 1 tablet, Daily meclizine (ANTIVERT) 25 mg, 3 times daily PRN metFORMIN (GLUCOPHAGE) 500 mg, Daily omeprazole (PRILOSEC) 40 mg, 2 times daily oxybutynin XL (DITROPAN-XL) 5 mg, Daily potassium chloride CR (KLOR-CON) 20 MEQ ER tablet 20 mEq, Daily promethazine (PHENERGAN) 25 mg, Every 12 hours Rexulti 4 mg, Daily simvastatin (ZOCOR) 40 mg, Nightly spironolactone (ALDACTONE) 50 mg, Daily venlafaxine XR (EFFEXOR XR) 300 mg, Daily Zavzpret 10 mg, Nasal, Daily PRN, Take no more than 1 time in 24 hours. Take no more than six dosesper month. ALLERGIES Allergies Allergen Reactions Aspirin Other Reaction(s): shaky Wound Dressing Adhesive Rash PROBLEMS Active Ambulatory Problems Diagnosis Date Noted Migraine without aura and without status migrainosus, not intractable 09/24/2023 Fibromyalgia 09/24/2023 CARLOS (obstructive sleep apnea) 09/24/2023 Carpal tunnel syndrome of left wrist 09/24/2023 Paresthesia 09/24/2023 Chronic migraine without aura without status migrainosus, not intractable 09/24/2023 Resolved Ambulatory Problems Diagnosis Date Noted No Resolved Ambulatory Problems Past Medical History: Diagnosis Date Anxiety Backache Benign intracranial hypertension Bilateral carpal tunnel syndrome Blurred vision Common migraine Depression Diplopia Disturbance of skin sensation Headache Intractable migraine without aura Obesity Obstructive sleep apnea Pain in joint Pain in limb Peripheral neuropathy Seizure disorder (HCC) Tension type headache HISTORY PAST MEDICAL HISTORY SOCIAL HISTORY Past Medical History: Diagnosis Date Anxiety Backache Benign intracranial hypertension Bilateral carpal tunnel syndrome Blurred vision Common migraine Depression Diplopia Disturbance of skin sensation Fibromyalgia Headache Intractable migraine without aura Obesity Obstructive sleep apnea Pain in joint pelvic region and thigh Pain in limb Peripheral neuropathy Seizure disorder (HCC) Tension type headache Social History Tobacco Use Smoking status: Never Smokeless tobacco: Never Substance Use Topics Alcohol use: Not Currently Drug use: Never FAMILY HISTORY Family History Problem Relation Name Age of Onset Depression Other Hyperlipidemia Other Migraines Other SURGICAL HISTORY Past Surgical History: Procedure Laterality Date BACK SURGERY CARPAL TUNNEL RELEASE ENDOMETRIAL ABLATION OTHER SURGICAL HISTORY Lumbar radiofrequency ablation TUBAL LIGATION REVIEW OF SYSTEMS Review of Systems: Review of Systems Constitutional: Negative. HENT: Negative. Eyes: Negative. Respiratory: Negative. Cardiovascular: Negative. Gastrointestinal: Negative. Genitourinary: Negative. Musculoskeletal: Negative. Skin: Negative. Neurological: Negative. All other systems reviewed and are negative. Hematological: Negative. Endocrine: Negative. Allergic/Immunologic: Negative. OBJECTIVE Objective: Physical Exam Constitutional: Appearance: Normal appearance. She is well-developed. Genitourinary: Vulva normal. Right Adnexa: not tender and no mass present. Left Adnexa: not tender and no mass present. No cervical discharge. Breasts: Breasts are soft. Right: Normal. Left: Normal. HENT: Head: Normocephalic. Nose: Nose normal. Mouth/Throat: Mouth: Mucous membranes are moist. Cardiovascular: Rate and Rhythm: Normal rate and regular rhythm. Pulmonary: Effort: Pulmonary effort is normal. Breath sounds: Normal breath sounds. Abdominal: General: Bowel sounds are normal. There is no distension. Palpations: Abdomen is soft. Tenderness: There is no abdominal tenderness. There is no guarding or rebound. Musculoskeletal: General: No swelling. Normal range of motion. Cervical back: Normal range of motion. Right lower leg: No edema. Left lower leg: No edema. Neurological: General: No focal deficit present. Mental Status: She is alert and oriented to person, place, and time. Skin: General: Skin is warm and dry. Psychiatric: Mood and Affect: Mood normal. Behavior: Behavior normal. Vitals and nursing note reviewed. Exam conducted with a account officer present. Vitals: Estimated body mass index is 51.7 kg/m?? as calculated from the following: Height as of this encounter: 5' 8 . Weight as of this encounter: 340 lb. BP: 130/78 No LMP recorded (lmp unknown). Patient has had an ablation. ASSESSMENT & PLAN ICD-10-CM 1. Well woman exam with routine gynecological exam Z01.419 THIN PREP TIS PAP AND HR HPV DNA 2. Encounter for screening mammogram for malignant neoplasm of breast Z12.31 Bilateral screening mammogram Bilateral screening mammogram 3. Osteoporosis, post-menopausal M81.0 DEXA bone density 4. Asymptomatic menopausal state Z78.0 Annual: Patient presents today for an annual exam. Patient states she is doing well and has complaints out hot flashes all the time and night sweats. Patient states she is going through menopause and is having a rough time dealing with all the sweating. Pap was obtained without difficulty and patient givenmammogram orderDexa scan to have scheduled/obtained. We will send in Bijuva. Orders Placed This Encounter Procedures Bilateral screening mammogram DEXA bone density Follow Up: Patient is to return in one year for annual unless needed otherwise. Documented by Chanelle Souza LPN on behalf of: DIVYA Kyle documented in this encounter Plan of Treatment Upcoming Encounters Date Type Department Care Team (Late st Contact Info) Description 01/23/2026 1:00 PM EDT Procedure Visit JENI Kay [facility] [address] [place] [phone] Shauna Pickett PA [address] [facility] [place] [address] Scheduled Orders Name Type Priority Associated Diagnoses Orde r Schedule Bilateral screening mammogram Imaging Routine Encounter for screening mammogram for malignant neoplasm of breast Expected: 01/17/2025 (Approximate), Expires: 03/19/2026 DEXA bone density Imaging Routine Osteoporosis, post-menopausal Expected: 01/17/2025 (Approximate), Expires: 01/17/2026 THIN PREP TIS PAP AND HR HPV DNA Pathology and Cytology Routine Well woman exam with routine gynecological exam Ordered: 01/17/2025 documented as of this encounter Visit Diagnoses Diagnosis Well woman exam with routine gynecological exam Routine gynecological examination Encounter for screening mammogram for malignant neoplasm of breast Osteoporosis, post-menopausal Senile osteoporosis Asymptomatic menopausal state Symptoms, such as flushing, sleeplessness, headache, lack of concentration, associated with the menopause documented in this encounter Care Teams Trouble Operator Relationship Specialty Start Date End Date Unallocated, Jeni Dahl MD [address] [place] [address] [place] [address] PCP - General Family Medicine 05/05/24 Alyssa Juarez MD [address] [place] [address] Referring Physician Family Medicine 09/24/23 Leon Jerez DO [address] [place] [id number] Referring Physician Neurology 03/04/24 documented as of this encounter
--- OUTSIDE RECORDS SUMMARY | 2025-01-27 12:45 | XMS_ITS | Continuity of Care Document ---
Author Organization [facility] Address [address] [place] [address] Phone Care Team Providers Care Sales Marketing Coordinator Name Role Phone Alyssa Juarez NP-C Primary Care Provider Alexey Maki MD Attending Provider Asif Cox MD Attending Provider Destini Kilgore NP Attending Provider [phone] Care Teams Patient Care Team Team Status: Active Member Role Status Dates Alyssa Juarez NP-C Primary Care Provider Active Visit Care Team Team Status: Active Member Role Status Dates Alyssa Juarez NP-C Primary Care Provider Active Start: 2024 Alexey Maki MD Attending Provider Active Start: 2024 Visit Care Team Team Status: Inactive Member Role Status Dates Alyssa Juarez NP-C Primary Care Provider Active Start: December 30, 2024 End: December 30, 2024 Asif Cox MD Attending Provider Active Sta rt: December 30, 2024 End: December 30, 2024 Visit Care Team Team Status: Inactive Member Role Status Dates Alyssa Juarez NP-C Primary Care Provider Active Start: January 20, 2025 End: January 20, 2025 Destini Kilgore NP Attending Provider Active Start: January 20, 2025 End: January 20, 2025 Patient Care Team Team Status: Inactive Member Role Status Dates Alyssa Juarez NP-C Primary Care Provider Active Start: January 27, 2025 End: January 27, 2025 Asif Cox MD Attending Provider Active Sta rt: January 27, 2025 End: January 27, 2025 Chief Complaint and Reason for Visit Chief Complaint Admit Date 2024 10 :00am MED REFILL/ bilat knee steroid injection December 30, 2024 2:50pm med refill for chronic pain January 202024 11:42am STEROID INJ RIGHT KNEE January 27, 2025 4:11pm Reason for Visit Admit Date Chronic pain December 30, 2024 2:50pm Primary osteoarthritis of left knee Dec 2:50pm Primary osteoarthritis of right knee [facility] 2024 2:50pm Chronic pain January 20, 2025 11:42am Primary osteoarthritis of left knee Dec 11:42am Primary osteoarthritis of right knee Sep 2024 11:42am Chronic pain January 27, 2025 4: 11pm Primary osteoarthritis of right knee Jan 4:11pm Allergies, Adverse Reactions, Alerts Allergen Type Severity Reaction Last Updated Verified Status Comments aspirin Allergy Unknown Shakiness, TREMORS January 27, 2025 4:24pm Yes Active tremors adhesive tape Allergy Unknown Rash January 4:24pm Yes Active Social History Smoking Status Status Start Date End Date Date of Observa tion Ex-smoker (finding) June 16, 2024 9:50am Observation Status Observation Response Date of Response Legal Sex Female (finding) Sex Assigned At Female November h, 1971 Family History Relationship Condition Age at Onset Recorded Date/T susan father Malignant neoplasm of prostate Unknown brother Schizophrenia Unknown mother Dementia Unknown brother Hypertension Unknown Schizophrenia Unknown Family history of mental disorder Unknown father Malignant neoplasm of prostate Unknown Malignant neoplasm Unknown son Nephromegaly Unknown Problems Active Problems Medical Problem Onset Date Status Arthritis of sacroiliac joint Unknown Ac tive Mid back pain Unknown Active Lumbosacral spondylosis without myelopathy Unkno wn Active Thoracic spondylosis Unknown Active CARLOS (obstructive sleep apnea) Unknown Ac tive Primary osteoarthritis of left knee Unknown Active Primary osteoarthritis of right knee Unknown Active Migraine, unspecified, not intractable, without status migrainosus Unknown Active Lumbar radiculopathy Unknown Active Sacroiliitis Unknown Active Bilateral primary osteoarthritis of knee Unknown Active Osteoarthritis of both knees Unknown Act félix Chronic pain Unknown Active Fibromyalgia Unknown Active Cervical spondylosis Unknown Active Right shoulder pain Unknown Active Lower abdominal pain Unknown Active Constipation Unknown Active Medications Medication Status Dose Units Route Directions Qty Days St art Date Stop Date End Date Instructions Adherence Gabapentin 400 mg capsule Discont inued 400 MG PO Three times daily August 05, 2023 1:27pm Augus t 2023 10:58 am Furosemide 40 mg tablet Discont inued 40 MG PO Twice [facility]:00am [facility]2023 10:57 am Venlafaxine 75 mg capsule,ext ended release 24hr Discont inued 225 MG PO Daily [facility] 1:00am [facility]2023 10:14 am Benztropine 0.5 mg tablet Active 0.5 MG PO Twice daily [facility] 2020 1:00am Complies with drug therapy Lamotrigine 200 mg tablet Active 200 MG PO Daily [facility] 2020 1:00am Complies with drug therapy Azithromyci n 250 mg tablet Discont inued MG [facility] 2020 1:00am August 15, 2021 9:58a m Tolterodine 4 mg capsule,ext ended release 24hr Discont inued 4 MG PO Daily [facility] 2020 1:00am [facility]2023 10:14 am Sucralfate 1 gram tablet Discont inued 1 GM PO Four times daily [facility] 2020 1:00am [facility]2023 10:14 am Famotidine 40 mg tablet Discont inued 40 MG PO Twice daily [facility] 2020 1:00am [facility]2023 10:04 am Butalbital- Acetaminoph en-Caff 50-325-40 mg tablet Discont inued 1 TAB PO As Directed as needed for Migraine Headache [facility] 2020 1:00am August 29, 2021 10:35 am Potassium Chloride (Klor-Con M20) 20 mEq tablet,ER particles/c rystals Discont inued 20 MEQ PO As Directed [facility] 2020 1:00am August 29, 2021 10:35 am Tolterodine 2 mg tablet Discont inued 2 MG PO As Directed [facility] 2020 1:00am August 29, 2021 10:31 am Paroxetine Hcl 20 mg tablet Discont inued 20 MG PO As Directed [facility] 2020 1:00am August 29, 2021 10:35 am Pantoprazol e 40 mg tablet,jabier yed release (DR/EC) Discont inued 40 MG PO Twice daily [facility] 2020 1:00am July 08, 2024 3:00p m Diclofenac Sodium 75 mg tablet,jabier yed release (DR/EC) Discont inued 75 MG PO Twice daily [facility] 2020 1:00am September 04, 2023 9:51a m Topiramate 100 mg tablet Discont inued 100 MG PO As Directed [facility] 2020 1:00am August 29, 2021 10:35 am Fluticasone Propionate 50 mcg/actuati on spray,suspe nsion Discont inued 50 MCG INTRAN PREETI Daily [facility] 2020 1:00am u 2023 10:11 am Lamotrigine 100 mg tablet Active 100 MG PO Daily [facility] 2020 1:00am Complies with drug therapy Spironolact one 50 mg tablet Discont inued 50 MG PO Daily [facility] 2020 1:00am u 2024 10:27 am Brexpiprazo le (Rexulti) 4 mg tablet Active 4 MG PO Every evening [facility] 2020 1:00am Complies with drug therapy Venlafaxine 75 mg capsule,ext ended release 24hr Active 150 MG PO Daily Februa ry 2023 10:13a m Complies with drug therapy Cyclobenzap rine 5 mg tablet Discont inued 5 MG PO Daily at bedtime August 29, 2021 12:00a m Febru isabel2024 10:23 am Rizatriptan 10 mg tablet,disi ntegrating Discont inued 10 MG PO As Directed as needed for Migraine August 29, 2021 12:00a m Febru isabel2023 10:11 am Gabapentin 300 mg capsule Discont inued 300 MG PO Three times daily August 29, 2021 12:00a m 2023 10:07 am Gabapentin 300 mg capsule Discont inued 400 MG PO Three times daily 2023 9:47am July 16, 2023 11:04 am Naratriptan 2.5 mg tablet Discont inued 2.5 MG PO Every 4 hours as needed 2023 1:00am [facility] 2024 10:26 am do not exceed 2 doses per 24 hrs Paroxetine Hcl 20 mg tablet Discont inued 20 MG PO Daily 2023 1:00am [facility] 2024 10:27 am FreeTextSi tablet in the morning Orally Once a day; Note: Source Status: Not-Takingund efinedPRN; Provider: Brooke Gold ( ) Simvastatin 40 mg tablet Active 1 TAB PO Daily 2023 1:00am FreeTextSi tablet in the evening Orally Once a day; Note: Source Status: Taking; Provider: Brooke Gold ( ) Complies with drug therapy Multivitami n (Daily Multi-Vitam in) tablet Active 1 TAB PO Daily 2023 1:00am Complies with drug therapy Methylpredn isolone (Medrol (Sebastian)) 4 mg tablets,dos e pack Discont inued 4 MG PO 2023 1:00am [facility]2023 10:34 am FreeTextSig: as directed Orally for daily dose take half with breakfast half with dinner; Note: Source Status: Taking; Refills: 0; Provider: Jame Machado Gabapentin 400 mg capsule Discont inued 400 MG PO Three times daily July 16, 2023 12:00a m August 05, 2023 1:28p m Diclofenac Sodium (Voltaren Arthritis Pain) 1 % gel Discont inued 2 GM TOPICA L Four times daily September 04, 2023 12:00a m Augus t 2023 10:59 am apply to single elbow, wrist or hand; for hand includes palm/fingers/ back of hand Gabapentin 400 mg capsule Discont inued 400 MG PO Three times daily December 11, 2023 10:57a m 2023 3:59p m Diclofenac Sodium (Voltaren Arthritis Pain) 1 % gel Discont inued 2 GM TOPICA L Four times daily 100 December 11, 2023 10:59a m July 08, 2024 3:00p m apply to single elbow, wrist or hand; for hand includes palm/fingers/ back of hand Metformin 500 mg tablet Active 500 MG PO Daily 2023 12:00a m Complies with drug therapy Rimegepant (Nurtec Odt) 75 mg tablet,disi ntegrating Active 75 MG PO Every 48 hours 2024 1:00am Complies with drug therapy Gabapentin 400 mg capsule Discont inued 400 MG PO Three times daily 30 2024 10:53a m September 29, 2024 11:11 am Gabapentin 400 mg capsule Discont inued 400 MG PO Three times daily 90 2023 3:58pm [facility]2024 10:54 am Albuterol Sulfate 90 mcg/actuati on HFA aerosol inhaler Active 1 INH INHALA TION Every 6 hours July 08, 2024 12:00a m Complies with drug therapy Galcanezuma b-Gnlm (Emgality Pen) 120 mg/mL pen injector Active 120 MG SUBCUT every month July 08, 2024 12:00a m Complies with drug therapy Valbenazine (Ingrezza) 80 mg capsule Active 80 MG PO Daily July 08, 2024 12:00a m Complies with drug therapy Omeprazole 40 mg capsule,del ayed release(DR/ EC) Active 40 MG PO Daily July 08, 2024 12:00a m Complies with drug therapy Mecobalamin (Vitamin B12) 1,000 mcg tablet,chew able Active 1000 MCG PO Daily July 08, 2024 12:00a m Complies with drug therapy Gabapentin 400 mg capsule Discont inued 400 MG PO Three times daily 90 30 September 29, 2024 11:03a m 2024 11:34 am Gabapentin 400 mg capsule Active 400 MG PO Three times daily 90 30 2024 11:34a m Complies with drug therapy Immunizations Immunization Event Date Not Given Reason Dose Number Superintendent Maintenance Lot Number Vaccine Information Statement (VIS) Detail Administration Location COVID-19 mRNA, Comirnaty (Pfizer) December 02, 2020 COVID-19 mRNA, Comirnaty (Pfizer) 2020 COVID-19 Comirnaty (Pfizer) Tri-Sucrose 12+ October 07, 2021 Quadrivalent Influenza January 09, 2015 Zoster Vaccine Recombinant, Adjuvanted October 07, 2021 Vital Signs Vital Reading Result Reference Range Collection Date/Time Height 68 [in_i] December 30, 2024 2:59pm Weight 157.11 kg December 30, 2024 2:59pm Heart Rate 90 /min 60-100 December 30, 2024 2:59pm Oxygen saturation by Pulse oximetry 94 % 95-100 December 30, 2024 2:59pm BP Systolic 124 mm[Hg] 100-140 December 30, 2024 2:59pm BP Diastolic 80 mm[Hg] 60-100 December 30, 2024 2:59pm BMI (Body Mass Index) 52.7 kg/m2 Sept2024 2:59pm Heart Rate 84 /min 60-100 January 27 4:25pm Oxygen saturation by Pulse oximetry 99 % 95-100 January 27, 2025 4: 25pm Advance Directives Advance Directive Response Recorded Date/ Time Advance Directives No May 10:50am Insurance Providers Guarantor Shailesh Blake Address [address] [place] [phone] Contact Info. Home Phone: Payer Policy Id Subscriber's Name Subscriber Id Effectiv e Date Expiration Date Kesha WEST [id number] Cipriano Blake JR [id number] Encounters Encounter Location(s) Arrival/Admit Date Discharge/Depart Date Provider(s) Registered Recurring -BH Credible 2024 10:00am Alexey Maki MD Departed Physician/Provi kallie Office Visit -[facility] December 30, 2024 2:50pm December 30, 2024 3:20pm Asif Cox MD Departed Physician/Provi kallie Office Visit -[facility] January 20, 2025 11:42am January 20, 2025 11:47abdulkadir Kilgore NP Departed Physician/Provi kallie Office Visit -[facility] January 27, 2025 4:11pm January 27, 2025 4:44pm Asif Cox MD Recent Diagnosis Onset Date Admit Date Chronic pain Unknown December 30 025 2:50pm Primary osteoarthritis of left knee Unknown December 30, 2024 2:50pm Primary osteoarthritis of right knee Unknown December 30, 2024 2:50pm Chronic pain Unknown January 20, 2025 11:42am Primary osteoarthritis of left knee Unknown January 20, 2025 11:42am Primary osteoarthritis of right knee Unknown January 20, 2025 11:42am Chronic pain Unknown January 27 4:11pm Primary osteoarthritis of right knee Unknown January 27, 2025 4:11pm Assessments Diagnosis Onset Date Resolution Status Admit Date Chronic pain acute December 2:50pm Primary osteoarthritis of le ft knee acute December 30 025 2:50pm Primary osteoarthritis of ri ght knee acute December 30 025 2:50pm Chronic pain acute January 202024 11:42am Primary osteoarthritis of le ft knee acute January 20, 2025 11:42am Primary osteoarthritis of ri ght knee acute January 20, 2025 11:42am Chronic pain acute January 27, 2025 4:11pm Primary osteoarthritis of ri ght knee acute January 27 4:11pm Plan of Treatment Author Saba [facility] Authored December 30, 2024 3:26pm 54 year old female here for follow up to discuss chronic pain. She voices continued complaints of bilateral knee pain, worse on the left. Different treatment options were discussed in detail with the patient, and I recommend we proceed with a steroid injection to the left knee under ultrasound guidance today in the office as scheduled. Risks and benefits of procedure explained to patient; patient verbalizes understanding. We can proceed with a steroid injection to the right knee in 2-3 weeks. Continue with current treatment plan Author Saba [facility] Authored January 27, 2025 4: 40pm 54 year old female here for follow up to discuss chronic pain. She voices complaints of bilateral knee pain, worse on the right side. She feels pain negatively impacts daily activities. Different treatment options were discussed in detail with the patient, and I recommend we proceed with a steroid injection to the right knee under ultrasound guidance today in the office as scheduled. Risks and benefits of procedure explained to patient; patient verbalizes understanding. Continue with current treatment plan Author Bel[facility] Authored January 20, 2025 11:36am She feels the steroid inject ion provided her with at least 50% relief of left knee pain. 54 year old female evaluated via telephonic call for follow up and medication refill for chronic pain. She voices complaints of bilateral knee pain, worse on the right. She feels the steroid injection provided her with at least 50% relief of left knee pain. She continues taking Gabapentin with relief and is requesting a refill of this today. Different treatment options were discussed in detail with the patient in regards to patients condition. I recommend we proceed with steroid injection to the right knee under ultrasound guidance next week as discussed. Risks and benefits of procedure explained to patient; patient verbalizes understanding. Continue with current treatment plan. Future Tests Future scheduled test information is unavailable Pending Tests Pending diagnostic test information is unavailable Future Visits Future appointment information is unavailable Referrals to Other Providers Referral information is unavailable Future Procedures Future procedure information is unavailable Future Medications Future medication information is unavailable Patient Instructions Patient instructions are unavailable
--- OUTSIDE RECORDS SUMMARY | 2025-01-28 09:14 | XMS_ITS | Encounter Summary ---
Author Organization [facility] Address [address] [place] [address] Care Team Providers Care Monumental Stonemason Name Role Phone Alyssa Juarez MD Unavailable [phone] Leon Jerez DO Unavailable [phone] Unallocated, Jeni Provider Primary Care Provi kallie Encounter Details Date Type Department Care Team (Late st Contact Info) Description 02/12/2024 Orders Only KRISTI VALLE [address] [place] [address] Odessa Lancaster DO Social History [...] EDT Procedure Visit JENI Valle OBGYN [address] [address] Shauna Pickett PA [address] Srinivasan, [id number] documented as of this encounter Procedures Procedure Name Priority Date/Time Associated Diagnosis Comments EMG AND NERVE CONDUCTION STUDY Routine 06/21/2013 1:58 PM EST documented in this encounter Results * EMG AND NERVE CONDUCTION STUDY (06/21/2013 1:58 PM EST) Odessa Lancaster DO NEUROLOGY ORDERABLES Final Resu lt documented in this encounter Visit Diagnoses Not on filedocumented in this encounter Care Teams Monumental Stonemason Relationship Specialty Start Date End Date Unallocated, [place]oms Provider, [address] [place] [address] PCP - General Family Medicine 05/05/24 Alyssa Juarez MD [address] [place] [phone] Referring Physician Family Medicine 09/24/23 Leon Jerez DO [address] [phone] Referring Physician Neurology 03/04/24 documented as of this encounter
--- OUTSIDE RECORDS SUMMARY | 2025-01-28 09:14 | XMS_ITS | Clinical Summary ---
Author Organization [facility] Healthcare Address [address] [place] [address] Care Team Providers Care Brick Chimney Builder Name Role Phone Alyssa Juarez MD Unavailable [phone] Leon Jerez DO Unavailable [phone] Unallocated, [facility] Provider Primary Care Provi kallie Allergies Active [...] Encounters Date Type Department Care Team Description 01/25/2025 Abstract [facility] [place] [address] Rossy Lechuga MA 01/17/2025 1:30 PM EDT Procedure Visit [facility] [place] [address] Shauna Pickett PA Well woman exam with routine gynecological exam; Encounter for screening mammogram for malignant neoplasm of breast; Osteoporosis, post-menopausal ; Asymptomatic menopausal state; Symptoms, such as flushing, sleeplessness, headache, lack of concentration, associated with the menopause 01/17/2025 Clinisync Result Encounter [facility] External Department Unsolicited Shauna Pickett PA 01/17/2025 Bamboo flowsheet [facility] [place] [id number] Shauna Pickett PA from Last 3 Months [...] Description 01/23/2026 1:00 PM EDT Procedure Visit [facility] Rahul OBGYN [address] [place] [address] Shauna Pickett PA [address] [place] [address] Health Maintenance Due Date Last Done Comments CT Colonography 1969 Colonoscopy 1969 Colorectal Cancer Screening 1969 FIT-DNA 1969 FIT 1969 FOBT 1969 Sigmoidoscopy 1969 HPV/Cotest 12/24/1999 Mammogram 2009 Influenza Vaccine (#1) 2024 01/09/2015 Cervical Cancer Screening 08/05/2025 Pap Smear 08/05/2025 08/05/2022 Procedures Procedure Name Priority Date/Time Associated Diagnosis Comments IGP,APTIMA HPV,AGE GDLN Routine 01/17/2025 1:07 PM EDT PAP SMEAR Routine 08/05/2022 12:00 AM EDT from Last 3 Months or Most Recently Relevant to Health Maintenance Results * (ABNORMAL) IGP,APTIMA HPV,AGE GDLN (01/17/2025 1:07 PM EDT) AGE GDLN ACOG TESTING Note . [facility] Comment: TESTS RESULT FLAG UNITS REF RANGE LAB Clinician Provided Cytology Information Source.............Cervix;Endocervix No. of containers..01 ThinPrep Vial Dorothy OJEDA Latasha... 30-65 01 FLAG LEGEND: L-Low Normal,H-High Normal,LL-Alert Low,HH-Alert High <-Panic Low,>-Panic High,A-Abnormal,AA-Critical Abnormal Performed at: 01 =[facility] [place] [address] Yael Mancuso MD, IGP, APTIMA HPV, RFX 16/18,45 Note . [facility] Comment: TESTS RESULT FLAG UNITS REF RANGE LAB DIAGNOSIS: 02 NEGATIVE FOR INTRAEPITHELIAL LESION OR MALIGNANCY. Specimen adequacy: 02 Satisfactory for evaluation. Endocervical and/or squamous metaplastic cells (endocervical component) are present. Performed by: 02 Toan Lama, Structures Engineer ([facility]) . 02 Note: Note 02 The Pap smear is a screening test designed to aid in the detection of premalignant and malignant conditions of the uterine cervix. It is not a diagnostic procedure and should not be used as the sole means of detecting cervical cancer. Both false-positive and false-negative reports do occur. Test Methodology: Note 02 This liquid based ThinPrep(R) pap test was screened with the use of an image guided system. HPV Genotype Reflex Note 02 Criteria met, see HPV Genotype results. FLAG LEGEND: L-Low Normal,H-High Normal,LL-Alert Low,HH-Alert High <-Panic Low,>-Panic High,A-Abnormal,AA-Critical Abnormal Performed at: [facility] [address] [place] [address] Yael Mancuso MD, HPV APTIMA Positive(A) Negative [facility] Comment: This nucleic acid amplification test detects fourteen high- risk HPV types (16,18,31,33,35,39,45,51,52,56,58,59,66,68) without differentiation. HPV GENOTYPE 16 Negative Negative [facility] HPV GENOTYPE 18,45 Negative Negative [facility] Comment: Performed at: =[facility] [address], [place] [id number] Mine Patrol: Yael Mancuso MD, Phone: [phone] Performed at: [place] [address] [address] [id number] Mine Patrol: Yael Mancuso MD, Phone: [phone] 01/17/2025 1:07 PM EDT 01/18/2025 8:28 AM EDT Narrative [facility] - 01/24/2025 10:13 PM EDT BRUSH-SPATULA CERVIX ENDOCERVIX us Shauna [facility] BLOOD ORDERABLES Final Resul t [facility] TB * Pap Smear (08/05/2022 12:00 AM EDT) Swab Cervical swab / Unknown us Chelo Del Valles Bcp Ob LAB CYTOLOGY ORDERABLES Final Result EXTERNAL LAB from Last 3 Months or Most Recently Relevant to Health [place] [address] [employer] [place]ICA[place] Member Subscriber Plan / Payer (Ef fective 2022-Present) Name:Shailesh Blake Relation to Subscriber:Self Name:Shailesh Blake Payer ID:Not on file Group ID:[id number] Type:Not on file Address: [address] [place] [id number] Care Teams Brick Chimney Builder Relationship Specialty Start Date End Date Unallocated, Noms MD [address] [place], [place] [id number] PCP - General Family Medicine 05/05/24 Alyssa Juarez MD [address] [place] [address] Referring Physician Family Medicine 09/24/23 Leon Jerez DO [address] [place] [address] Referring Physician Neurology 03/04/24
--- OUTSIDE RECORDS SUMMARY | 2025-01-28 09:14 | XMS_ITS | Clinical Summary ---
Author Organization [facility] Address [address], [address] [place] [address] Care Team Providers Care Sawmill Manager Name Role Phone Winston Cardona MD Primary Care Provider + Social History Tobacco Use Types Packs/Day Years Used Date Smoking Tobacco: Never Assessed Comments Unknown Sex and Gender Information Value Date Recorded Sex Assigned at Not on file Legal Sex Female 1:51 PM EST Gender Identity Not on file Sexual Orientation Not on file Plan of Treatment Not on file Care Teams Sawmill Manager Relationship Specialty Start Date End Date Winston Cardona MD PCP - General 11/08/14
--- OUTSIDE RECORDS SUMMARY | 2025-01-28 09:14 | XMS_ITS | Encounter Summary ---
Author Organization [facility] Address [address] [place] [address] Care Team Providers Care Policy Service Coordinator Name Role Phone Alyssa Juarez MD Unavailable [phone] Leon Jerez DO Unavailable [phone] Unallocated, Noms Provider Primary Care Provi kallie Encounter Details Date Type Department Care Team (Late st Contact Info) Description 01/17/2025 Clinisync Result Encounter [facility] External Department Unsolicited Shauna Pickett PA [address] [place], [place] [id number] Social History Tobacco Use Types Packs/Day Years [...] 1:00 PM EDT Procedure Visit NOMArabella CROCKER [address] [place] [address] [place] [phone] Shauna Pickett PA [address] [place] [address] documented as of this encounter Procedures Procedure Name Priority Date/Time Associated Diagnosis Comments IGP,APTIMA HPV,AGE GDLN Routine 01/17/2025 1:07 PM EDT documented in this encounter Results * (ABNORMAL) IGP,APTIMA HPV,AGE GDLN (01/17/2025 1:07 PM EDT) [facility] TESTING Note . [facility] Comment: TESTS RESULT FLAG UNITS REF RANGE LAB Clinician Provided Cytology Information Source.............Cervix;Endocervix No. of containers..01 ThinPrep Vial Dorothy OJEDA Latasha... FLAG LEGEND: L-Low Normal,H-High Normal,LL-Alert Low,HH-Alert High <-Panic Low,>-Panic High,A-Abnormal,AA-Critical Abnormal Performed at: 01 =G [address] [address] Yael Mancuso MD, IGP, APTIMA HPV, RFX 16/18,45 Note . [facility] Comment: TESTS RESULT FLAG UNITS REF RANGE LAB DIAGNOSIS: 02 NEGATIVE FOR INTRAEPITHELIAL LESION OR MALIGNANCY. Specimen adequacy: 02 Satisfactory for evaluation. Endocervical and/or squamous metaplastic cells (endocervical component) are present. Performed by: 02 Toan Lama, Web Applications Administrator ([facility]) . 02 Note: Note 02 The Pap [...] High <-Panic Low,>-Panic High,A-Abnormal,AA-Critical Abnormal Performed at: [address] [place] [address] Yael Mancuso MD, HPV APTIMA Positive(A) Negative [facility] Comment: This nucleic acid amplification test detects fourteen high- risk HPV types (16,18,31,33,35,39,45,51,52,56,58,59,66,68) without differentiation. HPV GENOTYPE 16 Negative Negative [facility] HPV GENOTYPE 18,45 Negative Negative [facility] Comment: Performed at: =[address] [id number] Surgical Brace Maker: Yael Mancuso MD, Phone: [phone] Performed at: [address] [id number] Surgical Brace Maker: Yael Mancuso MD, Phone: [phone] 01/17/2025 1:07 PM EDT 01/18/2025 8:28 AM EDT Narrative [facility] - 01/24/2025 10:13 PM EDT BRUSH-SPATULA CERVIX ENDOCERVIX us Shauna [facility] BLOOD ORDERABLES Final Resul t [facility] documented in this encounter Visit Diagnoses Not on filedocumented in this encounter Care Teams Policy Service Coordinator Relationship Specialty Start Date End Date Unallocated, Noms Provider, [facility] [place] [place] [address] PCP - General Family Medicine 05/05/24 Alyssa Juarez MD [address] [place] [address] Referring Physician Family Medicine 09/24/23 Leon Jerez DO [address] [address] Referring Physician Neurology 03/04/24 documented as of this encounter
--- OUTSIDE RECORDS SUMMARY | 2025-01-28 09:14 | XMS_ITS | Clinical Summary ---
Author Organization [facility] Address [address] [place] [address] Care Team Providers Care Press Department Manager Name Role Phone Unavailable Primary Care Provider Unavailabl e Social History Tobacco Use Types Packs/Day Years Used Date Smoking Tobacco: Never Assessed [place] Safety & Environment Answer Date Rec orded [...]
--- OUTSIDE RECORDS SUMMARY | 2025-01-28 09:14 | XMS_ITS | Encounter Summary ---
Author Organization [facility] Address [address] [facility] [place] [address] Care Team Providers Care Respiratory Therapy Director Name Role Phone Alyssa Juarez MD Unavailable [phone] Leon Jerez DO Unavailable [phone] Unallocated, Noms Provider Primary Care [facility] kallie Encounter Details Date Type Department Care Team ([facility] Contact Info) Description 01/17/2025 Bamboo flowsheet JENI CROCKER [address] [place] [address] Shauna Pickett PA [address] [place], [place] [address] Social History Tobacco Use Types Packs/Day Years [...] PM EDT Procedure Visit JENI CROCKER [address] [place] [address] Shauna Pickett PA [address] [facility] [address] [place] [phone] documented as of this encounter Visit Diagnoses Not on filedocumented in this encounter Care Teams Respiratory Therapy Director Relationship Specialty Start Date End Date Unallocated, Noms [place], [address] [place] [address] PCP - General Family Medicine 05/05/24 Alyssa Juarez MD [facility] [place], [place] [phone] Referring Physician Family Medicine 09/24/23 Leon Jerez DO [address] [address] Referring Physician Neurology 03/04/24 documented as of this encounter
--- OUTSIDE RECORDS SUMMARY | 2025-01-28 09:14 | XMS_ITS | Encounter Summary ---
Author Organization [facility] Address [address] [place] [address] Care Team Providers Care Projection Printer Name Role Phone Alyssa Juarez MD Unavailable [phone] Leon Jerez DO Unavailable [phone] Unallocated, Noms Provider Primary Care [facility] kallie Encounter Details Date Type Department Care Team (Late Contact Info) Description 01/25/2025 Abstract JENI CROCKER [address] [place] [address] Rossy Lechuga MA Social History Tobacco Use Types Packs/Day Years [...] Upcoming Encounters Date Type Department Care Team ([facility] Contact Info) Description 01/23/2026 1:00 PM EDT Procedure Visit JENI CROCKER [address] [place] [address] Shauna Pickett PA [address] [place], [place] [phone] documented as of this encounter Visit Diagnoses Not on filedocumented in this encounter Care Teams Projection Printer Relationship Specialty Start Date End Date Unallocated, Noms ProviderMD [facility] [place] [address] PCP - General Family Medicine 05/05/24 Alyssa Juarez MD [address] [place] [address] Referring Physician Family Medicine 09/24/23 Leon Jerez DO [address] [address] Referring Physician Neurology 03/04/24 documented as of this encounter
--- OUTSIDE RECORDS SUMMARY | 2025-01-28 09:14 | XMS_ITS | Encounter Summary ---
Author Organization [facility] Address [address] [facility] [place] [address] Care Team Providers Care Mems Integration Engineer Name Role Phone Alyssa Juarez MD Unavailable [phone] Leon Jerez DO Unavailable [phone] Unallocated, Noms Provider Primary Care Provi kallie Encounter Details Date Type Department Care Team (Late Contact Info) Description 12/10/2023 Orders Only JENI CROCKER [address] [place] [address] Chanelle Souza LPN [address] [place] [facility] Social History Tobacco Use Types Packs/Day Years [...] PM EDT Procedure Visit NOMArabella CROCKER [address] [place] [address] Shauna Pickett PA [address] [place], [facility] documented as of this encounter Procedures Procedure Name Priority Date/Time Associated Diagnosis Comments PAP SMEAR Routine 08/05/2022 12:00 AM EDT documented in this encounter Results * Pap Smear (08/05/2022 12:00 AM EDT) Swab Cervical swab / Unknown Chelo Nurse Jeni Bcp Ob LAB CYTOLOGY ORDERABLES Final Result EXTERNAL LAB documented in this encounter Visit Diagnoses Not on filedocumented in this encounter Care Teams Mems Integration Engineer Relationship Specialty Start Date End Date Unallocated, Jeni Dahl MD [facility] [place] [address] PCP - General Family Medicine 05/05/24 Alyssa Juarez MD [address] [place] [id number] Referring Physician Family Medicine 09/24/23 Leon Jerez DO [address] [address] Referring Physician Neurology 03/04/24 documented as of this encounter
--- OUTSIDE RECORDS SUMMARY | 2025-01-28 09:14 | XMS_ITS | Clinical Summary ---
Author Organization [facility] Address [id number] [address] [place] [address] Care Team Providers Care Graphics Specialist Name Role Phone Unavailable Primary Care Provider [...]
--- OUTSIDE RECORDS SUMMARY | 2025-01-28 09:14 | XMS_ITS | Patient Health Record ---
Author Organization The [facility] in [place] Address [address] [place] [address] Care Team Providers Care Furniture Assembly Supervisor Name Role Phone Alyssa Juarez Primary Care [...] neg Control present CBC AUTO DIFF Reviewed date:11/23/2024 11:07:03 AM Interpretation: Performing Lab: Notes/Report: [facility] , White Blood Count 6.1 4.0-11.0 [...] 3/uL Performing Lab: see note ML - [facility] FREE T3 Reviewed date:11/23/2024 11:07:03 AM Interpretation: Performing Lab: Notes/Report: [facility] , Free T3 2.82 2.18-3.98 pg/mL Performing Lab: see note ML - [facility] LB GLYCOHEMOGLOBIN A1C Reviewed date:11/23/2024 11:07:03 AM Interpretation: Performing Lab: Notes/Report: [facility] , Glycohemoglobin A1C 6.2 4.5-6.2 % ADA RECOMMENDED LIMIT 4.0 - 6.0 ADA THERAPEUTIC TARGET < 7.0 ACTION SUGGESTED > 7.0 Estimated Average Glucose 131 Performing Lab: see note ML - [facility] LB IRON Reviewed date:11/23/2024 11:07:03 AM Interpretation: Performing Lab: Notes/Report: [facility] , Iron 162.0 50.0-170.0 ug/dL Performing Lab: see note ML - [facility] LB LIPID PROFILE Reviewed date:11/23/2024 11:07:03 AM Interpretation: Performing Lab: Notes/Report: [facility] , Triglycerides 129 <=150 mg/dL Cholesterol 151 <=200 mg/dL HDL Cholesterol 40 40-60 mg/dL > or =60 mg/dl - LOW CARDIOVASCULAR RISK <40 mg/dl - HIGH CARDIOVASCULAR RISK LDL Cholesterol Calculated 85.2 <100 mg/dl OPTIMAL 100-129 mg/dl NEAR OR ABOVE OPTIMAL 130-159 mg/dl BORDERLINE HIGH 160-189 mg/dl HIGH >190 mg/dl VERY HIGH VLDL CHOLESTEROL 25.8 Chol HDL Ratio 3.8 3.3 - 4.4 LOW RISK 4.4 - 7.1 AVERAGE RISK 7.1 - 11.0 MODERATE RISK >11.0 HIGH RISK Performing Lab: see note ML - [facility] LB PROF 14(COMP METB) Reviewed date:11/23/2024 11:07:04 AM Interpretation: Performing Lab: Notes/Report: [facility] , Sodium 138 136-145 mmol/L Potassium [...] 0.9 Performing Lab: see note ML - [facility] T4 Reviewed date:11/23/2024 11:07:04 AM Interpretation: Performing Lab: Notes/Report: [facility] , T4 Thyroxine 9.60 4.80-13.90 ug/dL Performing Lab: see note ML - [facility] LB TSH Reviewed date:11/23/2024 11:07:04 AM Interpretation: Performing Lab: Notes/Report: [facility] , Thyroid Stimulating Hormone 1.504 0.358-3.740 u IU/mL Performing Lab: see note - [facility] LB INSULIN Reviewed date:11/24/2024 08:31:31 AM Interpretation: Performing Lab: Notes/Report: [facility] , Insulin 45.3 2.6-24.9 uIU/mL Performed at: CB - [facility] [id number] Vice President Industrial Relations: Drew Katz PhD, Phone: [phone] Performing Lab: see note [facility] LB MR cervical spine wo con Reviewed date:05/26/2024 11:58:51 AM Interpretation: Performing Lab: Notes/Report: Source Facility: [place] [address] Magnetic Resonance Report Signed Patient: SHAILESH BLAKE MR#: [id number] : 1970 Acct:[id number] Age/Sex: 53 / F ADM Date: 05/26/24 Loc: MRI Attending Dr: Kimber Dow PLATFORM INSPECTOR Ordering Physician: Kimber Dow NP Date of Service: 05/26/24 Procedure(s): MR cervical spine wo con Accession Number(s): [id number] cc: ALYSSA JUAREZ ; Kimber Dow NP [place] [address] Patient Name: SHAILESH BLAKE MRN: [id number] date: 1970 Sex: F Assigned Patient Location: MRI Current Patient Location: MRI Accession/Order Number: [id number] Exam Date: 05/26/2024 08:42 Report Date: 05/26/2024 [...] Signed By: 05/26/24 1139 DD/ 1136 TD/TT: Folder Machine Adjuster: VITAMIN D 25 [place] Reviewed date:11/23/2024 11:47:17 AM Interpretation: Performing Lab: Notes/Report: [facility] , Vitamin D 26.6 <20 ng/mL Vit D deficient 20-<30 ng/mL Vit D insufficient 30-100 ng/mL Vit D sufficient >100 ng/mL Potential Toxicity Performing Lab: see note ML - [facility] LB IGP,Aptima HPV,Age Gdln Reviewed date:01/26/2025 08:37:52 AM Interpretation: Performing Lab: Notes/Report: BRUSH-SPATULA CERVIX ENDOCERVIX [facility] , Age Gdln ACOG Testing Note . TESTS RESULT FLAG UNITS REF RANGE LAB ------ Clinician Provided Cytology Information Source.............Cervix;E ndocervix No. of containers..01 ThinPrep Vial Age Algo ACOG Latasha... 30-65 01 ------ FLAG LEGEND: L-Low Normal,H-High Normal,LL-Alert Low,HH-Alert High <-Panic Low,>-Panic High,A-Abnormal,AA-Critical Abnormal ------ Performed at: 01 =G [facility] [address] [place] [address] Yael Mancuso MD, IGP, Aptima HPV, rfx 16/18,45 Note . TESTS RESULT FLAG UNITS REF RANGE LAB ------ DIAGNOSIS: 02 NEGATIVE FOR INTRAEPITHELIAL LESION OR MALIGNANCY. Specimen adequacy: 02 Satisfactory for evaluation. Endocervical and/or squamous metaplastic cells (endocervical component) are present. Performed by: Abdi Lama, Strip Picker (ASCP) . 02 Note: Note 02 The Pap [...] 02 Criteria met, see HPV Genotype results. ------ FLAG LEGEND: L-Low Normal,H-High Normal,LL-Alert Low,HH-Alert High <-Panic Low,>-Panic High,A-Abnormal,AA-Critical Abnormal ------ Performed at: [address] [address] Yael Mancuso MD, HPV Aptima Positive Negative This nucleic acid amplification test detects fourteen high- risk HPV types (16,18,31,33,35,39,45,51,52 ,56,58,59,66,68) without differentiation. HPV Genotype 16 Negative Negative HPV Genotype 18,45 Negative Negative Performed at: =[address] [id number] Vice President Industrial Relations: Yael Mancuso MD, Phone: [phone] Performed at: [address] [id number] Vice President Industrial Relations: Yael Mancuso MD, Phone: [phone] Performing Lab: see note - [facility] LB [...] 40 MG TAKE 1 CAPSULE BY [facility] TWICE A DAY; Duration: 30 Active Cinnamon Active Rexulti 4 MG 1 tablet Orally Once a day; Duration: 30 day(s) Active Flaxseed Oil Active Gen Active metFORMIN HCl 500 MG 1 tablet with a samson l Orally Once a day; Duration: 30 days Active Mupirocin 2 % 1 application Bathing Suit Maker ally Twice a day; Duration: 5 days [...] Notes Problem Obstructive sleep apnea syndrome (disorder) (85420826) Obstructive sleep apnea (adult) (pediatric) (G47.33) Active confirmed Problem Overweight (664097761) Overweight (E66.3) Active confirmed Problem 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, 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) Active confirmed Problem Snoring (73179083) Snoring (R06.83) Active conf irmed Problem Body mass index 40+ - severely obese (050054429) Body mass index (BMI) 45.0-49.9, adult (Z68.42) Active confirmed Problem Gastroesophageal reflux disease (580106364) GERD (gastroesophageal reflux disease) (K21.9) Active confirmed Problem Dyspnea (019372081) SOB (shortne ss of breath) (R06.02) Active confirmed Problem Hypertension (26146041) HTN (hypertension) (I10) Active confirmed Problem Arthritis (3648903) Arthritis (M19.90) Active c onfirmed Problem Urinary tract infectious disease (62724689) UTI (urinary tract infection) (N39.0) Active confirmed Problem Vitamin D deficiency (83803425) Vitamin D deficiency (E55.9) Active confirmed Problem Migraine (08864466) Migraine (G43.909) Active c onfirmed Problem Irritable bowel syndrome (18198783) IBS (irritable bowel syndrome) (K58.9) Active confirmed Problem Weight gain (202227200) Weight gain (R63.5) Active confirmed Problem Mixed anxiety and depressive disorder (936555871) Depression with anxiety (F41.8) Active confirmed Problem Chronic migraine (905545925) Chronic migraine (G43.709) Active confirmed Problem Epigastric discomfort (471531798) Epigastric discomfort (R10.13) Active confirmed Problem Canker sore (432213546) Canker sore (K12.0) Active confirmed Problem Hyperinsulinemia (47620892) Hyperinsulinemia (E16.1) Active confirmed Problem Sore mouth (457422906) Sore mouth (K13.79) Active confirmed Problem Menopausal hot flushes (032951635) Menopausal hot flushes (N95.1) Active confirmed Problem Somnolence (51554757) Somnolence, daytime (R40.0) Active confirmed Problem Prediabetes (576645138) Pre-diabetes (R73.03) Active confirmed Problem Human papillomavirus infection (416919737) 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) Active confirmed Problem Electrocardiogram abnormal (769161388) Abnormal electrocardiogram during exercise stress test (R94.31) Active confirmed Problem Osteoarthritis of knee (139130862) Osteoarthritis of left knee (M17.12) Active confirmed Problem COVID-19 (467979184) COVID-19 (U07.1) Active confirmed Problem Morbid obesity (461566949) Class 3 obesity (E66.01) Active confirmed Vital Signs Temperature 98.2 degrees Fahrenheit 06/09/2024 Blood pressure diastolic 88 mm Hg 11/22/2024 Height 68 in 11/22/2024 Blood pressure systolic 122 mm Hg 11/22/2024 Weight 346.0 lbs 11/22/2024 BMI 52.6 kg/m2 11/22/2024 Encounters Encounter Location Date Provider Diagnosis [address] [place] [address] 06/23/2024 Alyssa Juarez Class 3 obesity E66.[address] [address] 06/09/2024 Alyssa Juarez HTN (hypertension) I10 ; Class 3 obesity E66.01 ; URI (upper respiratory infection) J06.9 and Vitamin D deficiency E55.[address] [place] [address] 07/21/2024 Alyssa Juarez Class 3 obesity E66.01 and Canker sore K12.[address] [place] [address] 08/23/2024 Alyssa Juarez Class 3 obesity E66.[address] [place] [address] 11/22/2024 Alyssa Juarez Wellness examination Z00.00 and IBS (irritable bowel syndrome) K58.[address] [place] [address] 03/11/2024 Alyssa Juarez [address] [place] [address] 11/23/2024 Alyssa Juarez Vitamin D deficiency E55.[address] [address] 11/23/2024 Alyssa Juarez Assessments Encounter Date Diagnosis (ICD Code) Assessment Notes Treatment Notes Treatment Clinical Notes Section Notes 06/23/2024 Class 3 obesity (ICD-10 - E66.01) discussed SE, stop med if needed work on diet, discussed fu one month 06/09/2024 HTN (hypertension) (ICD-10 - I10) 06/09/2024 Class 3 obesity (ICD-10 - E66.01) handouts given work on BP start Adipex? fu 2 weeks 07/21/2024 Class 3 obesity (ICD-10 - E66.01) work on diet, increase activity fu 1m 07/21/2024 Canker sore (ICD-10 - K12.0) 08/23/2024 Class 3 obesity (ICD-10 - E66.01) try OTC Gen work on diet 11/22/2024 Wellness examination (ICD-10 - Z00.00) ROS done exam done recent mammogram due for pap, fu [place] 11/22/2024 IBS (irritable bowel syndrome) (ICD-10 - K58.9) discussed diet decrease sweet tea handouts given on IBS 11/23/2024 Vitamin D deficiency (ICD-10 - E55.9) [...] STOOL CULTURE 07/16/2023 THYROID PANEL (T4/TSH/FREE T3) 07/28/202 5 THYROID PANEL (T4/TSH/FREE T3) 4 THYROID PANEL (T4/TSH/FREE T3) 3 CMP (COMP MET STEIN) w/eGFR CKD-EPI 2024 CBC WITH DIFF 11/22/2024 Next Appt Details Provider Name:Alyssa vincent, 02/22/2025 10:30:00 AM, [address] [place], [address], Insurance Providers Payer Name Payer Address Payer Phone Subscriber Number Group Number Insured Name Patient Relationship to Insured Coverage Start Date Coverage End Date [employer] [place] [employer] [address] [address] [place] [address] [phone] [id number] Shailesh Blake Self - patient is the [...] wall pain R07.89 Surgical History Surgery Date(Month/Year) Epidural injections x2 rt shuolder gallbladder Hospitalization History Reason Date(Month/Year) See above
--- OUTSIDE RECORDS SUMMARY | 2025-01-28 09:17 | XMS_ITS | CCD ---
Author Organization [facility] Care Team Providers Care Azure Principal Solution Specialist Name Role Phone ELTAHAWY, EHAB A Admitting Unavailable ELTAHAWY, EHAB A Attending Unavailable MAXWELL, ALYSSA Primary Care Unavailable MAXWELL, ALYSSA Referring Unavailable ALYSSA ARREOLA S Primary Care Physician Asif Cox Unavailable Destini Kilgore Unavailable Mellissa Strange Unavailable MATTHIAS Arreola Alyssa Lesly Primary Care Provider MD Asif Cox Attending Provider MATTHIAS Arreola Alyssa Lesly Primary Care Provider [phone] MD Asif Cox Attending Provider [phone] MATTHIAS Arreola Alyssa Lesly Primary Care Provider [...] Primary Care Provider ADONAY Kilgore Attending Provider [phone] MATTHIAS Arreola Alyssa Lesly Primary Care Provider [phone] MD Alexey Maki Attending Provider [phone] MD Asif Cox Attending Provider Dioni Flores Primary Care Physician MATTHIAS Arreola Alyssa Lesly Primary Care Provider [phone] MD Alexey Maki Attending Provider [phone] MATTHIAS Arreola Alyssa Lesly Primary Care Provider MD Asif Cox Attending Provider [phone] MATTHIAS Arreola Alyssa Lesly Primary Care Provider MD Alexey Maki Attending Provider MATTHIAS Arreola Primary Care Provider MD Alexey Maki Attending Provider ADONAY Kilgore Attending Provider MATTHIAS Arreola Primary Care Provider MD Alexey Maki Attending Provider [phone] MD Alexey Maki Attending Provider Maxwell JARAMILLO, [...] Attending Provider MD Asif Cox Attending Provider [phone] Joel Jerez DO Unavailable Unallocated MD, Noms Provider Primary Care Provi kallie Maxwell COLOR TECHNICIAN-C, Alyssa Grace Primary Care Provider Alexey Maki MD Attending Provider Maxwell URIAS-C, Alyssa Grace Primary Care Provider Alexey Maki MD Attending Provider [phone] JOSE ELIAS MIRAMONTES Attending Unavailab le THERESA, JOSE ELIAS Buenrostro Attending Unavailab le THERESA, PA-C KAYY E Admitting Unavailab robert Arreola COLOR TECHNICIAN-C, Alyssa Grace Primary Care Provider Alexey Maki MD Attending Provider Maxwell COLOR TECHNICIAN-C, Alyssa Grace Primary Care Provider [phone] Alexey Maki MD Attending Provider Asif Cox MD Attending Provider Joel Jerez DO Unavailable [phone] CHEYANNE SCHILLING Attending Unavailable SHAKIR, CHEYANNE Attending Unavailable SHAKIR, CHEYANNE Attending Unavailable JOEL JEREZ Attending Unavailable SHAKIR, CHEYANNE Attending Unavailable ANKUSH, SHAUNA Attending Unavailable TANK LANCASTER Attending Unavailable SHAKIR, CHEYANNE Attending Unavailable Maxwell, Alyssa Grace Primary Care Unavailable Asif Cox Attending Unavailable Asif Cox Admitting Unavailable Alexey Maki Attending Unavailab le Alexey Maki Admitting Unavailab robert Arreola, Alyssa Lesly Primary Care Unavailable Maxwell COLOR TECHNICIAN-C, Alyssa Lesly Primary Care Provider Alexey Maki MD Attending Provider [phone] Destini Kilgore NP Attending Provider [phone] Allergies Allergy Classification Reported Allergen(s) Allergy Type Date of Onset Reaction(s) Facility (20 sources) Aspirin; Translations: [aspirin] Drug Allergy 2 Tremor (finding) [employer] Other Comment on above: tremors (15 sources) Desonide; Translations: [desonide topical] Drug Allergy 3 Unknown [facility] (11 sources) Tape 1 Drug allergy Eruption of skin (disorder) [facility] Comment on above: adhesive (20 sources) Adhesive Tape; Translations: [adhesive tape] Allergy to substance 2 [facility] (2 sources) Aspirin Drug Allergy 3 [facility] Repository (20 sources) Aluminum aspirin Drug Allergy 4 [facility] (20 sources) Wound Dressing Adhesive Propensity to adverse reactions 4 [facility] (2 sources) Adhesive Tape; Translations: [Tape] Propensity to adverse reactions (disorder) [facility] Repository (1 source) Aspirin Drug Allergy 5 [facility] Repository Medications Current Medications Medication [...] 70 mg Start Date: 08/09/21 Status: Ordered [id number] 200 actuat albuterol 0.09 mg/actuat metered dose inhaler (20 sources) beta2-Adrenergic Agonist Start: 07-08-2024 Start: 05-28-2023 Albuterol (Eqv -ProAir HFA) Inhalation, [...] take 1 tablet by mouth twice daily Start: 04-23-2019 benztropine Re fills(s) 0 Start [...] procedure, # 14 cap(s), Refills(s) 0, Pharmacy: [facility]/pharmacy #[id number], 173quique, 07/15/23 7:46:00 EDT, Height/Length Dosing, 142, kg, 05/28/23 16:07:00 EST, Weight Dosing Start Date: 07/15/23 Status: Ordered Start: 10-09-2021 End: 10-16-2021 take 1 capsule by mouth every twelve hours Keflex 500 mg Cap 500 mg = 1 cap(s), Oral, q12hr, X 7 day(s), # 14 cap(s), Refills(s) 0, Pharmacy: [facility]/pharmacy #[id number], quique Landry, 08/09/21 11:09:00 EDT, Height/Length [...] (Wrist Splint/Cock-Up/Left L) misc (20 sources) Start: 09-25-19 24 Elastic Bandages & Supports (Wrist Splint/Cock-Up/Left L) misc Indications: Carpal tunnel syndrome of left wrist Wear left cock-up wrist splint at bedtime 1 each 09/25/2023 Active 1 ml erenumab-aooe 70 mg/ml auto-injector (9 sources) Start: 08-10-19 Aimovig SureClick 70 mg/mL subcutaneous solution 70 mg Start Date: 08/09/21 Status: Ordered Estradiol / Progesterone (2 sources) Progesterone, Estrogen Start: 01-18-20 End: 02-17-20 25 take 0.5-100 mg by mouth at bedtime Estradiol-Progester one (Bijuva) 0.5-100 MG capsule Indications: Symptoms, such as flushing, sleeplessness, headache, lack of concentration, associated with the menopause Take 50 mg by mouth at bedtime 30 capsule 3 01/17/2025 02/16/2025 Active fluticasone 0.05 mg/inh Nasal Heppner (9 sources) Start: 05-03-19 20 fluticasone 0.05 mg/inh Nasal Heppner Nasal, Daily, Refill(s) 0 Start Date: 05/03/19 Status: Ordered gabapentin 400 mg oral capsule (20 sources) Anti-epileptic Agent Start: 06-19-19 End: 07-16-19 Gabapentin 300 mg capsule Discontinued 400 MG PO Three times daily June 19, 2023 9:47am July 16, 2023 11:04am Start: 06-19-2023 End: 07-16-2023 take 400 mg by mouth three times daily Gabapentin Discontinued 400 MG PO Three times daily June 19, 2023 9:47am July 16, 2023 11:04am Start: 05-28-2023 End: 01-20-2025 take 1 capsule by mouth three times daily Gabapentin 400 mg capsule Active 400 MG PO Three times daily January 20, 2025 11:34am Complies with drug therapy Start: 08-29-2021 End: 06-19-2023 take 1 capsule [...] m g Orally Twice a day Active 1 ml galcanezumab-gnlm 120 m g/ml auto-injector (20 sources) Start: 07-08-2024 inject 120 mg by sub cutaneous injection every month Start: 09-25-2023 End: 09-24-2024 galcanezumab (Emgality) 120 [...] 1 tablet by elyssa th once daily Start: 03-06-2021 take 1 tablet by elyssa th once daily take 1 tablet by elyssa th every [...] Status: Ordered mecobalamin 1 mg chewable tablet (4 sources) Start: 07-08-2024 take 1 tablet by mouth once daily meloxicam (4 sources) Nonsteroidal Anti-inflammatory Drug Start: 04-23-2019 meloxicam Oral, Daily, Refills(s) 0 Start Date: 04/23/19 Status: Ordered metFORMIN hydrochloride 500 mg oral tablet (20 sources) Biguanide Start: 01-02-2024 take 1 tablet by mouth once daily Multivitamin (Daily Multi-Vitamin) tablet (12 sources) Start: 06-19-2023 take 1 tablet by mouth once daily Start: 06-19-2023 take 1 tablet by elyssa [...] disintegrating oral tablet (20 sources) Start: End: simvastatin 40 mg oral tablet (20 sources) HMG-CoA Reductase Inhibitor Start: take 1 tablet by mouth once daily in the evening spironolactone 50 mg oral tablet (20 sources) [...] for 7 day(s), 14 tab(s), Refill(s) 0, [facility]/pharmacy #[id number], 173, cm, 02/12/24 9:11:00 EDT, Height/Length Dosing, 146.2, kg, 02/12/24 9:11:00 EDT, Weight Dosing Start Date: 02/12/24 Stop Date: 02/19/24 Status: Ordered Start: 08-09-2021 End: 08-16-2021 Bactrim DS 800 mg-160 mg Tab 1 tab(s), Oral, BID for 7 day(s), 14 tab(s), Refill(s) 0, [facility]/pharmacy #[id number], 173, cm, 08/09/21 11:09:00 EDT, Height/Length Dosing, 142, kg, 08/09/21 11:09:00 EDT, Weight Dosing Start Date: 08/09/21 Stop Date: 08/16/21 Status: Ordered TANASTANDARD1-Topical Cream Baclofen 2%, Cyclobenzaprine HCL 2%, Diclofenac [...] Sep, Active valbenazine 80 mg oral capsule (11 sources) Start: 05-26-2024 take 1 capsule by [...] take 1 capsule by mouth once daily Start: 03-06-2021 End: 06-19-2023 take 225 mg [...] Active Zavegepant HCl (Zavzpret) 10 MG/ACT solution (5 sources) Start: 09-20-2024 End: 03-19-2025 Zavegepant HCl [...] mg / caffeine 40 mg oral tablet (19 sources) Barbiturate, Central Nervous System Stimulant, Methylxanthine Start: 03-06-2021 End: 08-29-2021 Scstrvedhu-Aaoedlqwkizks-Dvr f 50-325-40 mg tablet Discontinued 1 TAB [...] list cleanup) azithromycin 250 mg oral tablet (19 sources) Macrolide Antimicrobial Start: 03-06-2021 End: 08-15-2021 [...] Active docusate sodium 50 mg / sennosides, senior care 8.6 mg oral tablet (20 sources) Start: [...] Start: 05-03-2019 fluticasone 0. 05 mg/inh Nasal Heppner Nasal, Daily, Refill(s) 0 Start Date: 05/03/19 [...] mouth Daily 03/10/2024 Discontinued (Med list cleanup) methocarbamol 750 mg oral tablet (20 sources) Muscle Relaxant End: 03-10-2024 methocarbamol (Robaxin) 750 MG tablet every 4 (four) hours 03/10/2024 Discontinued (Med list cleanup) methylPREDNISolone 4 mg oral tablet (17 sources) Corticosteroid Start: 06-19-2023 End: 01-02-2024 take [...] (Med list cleanup) take 2 tablets by [facility] every twenty-four hours Paxil 30 MG 2 [...] day Not-Taking sucralfate 1000 mg oral tablet (19 sources) Aluminum Complex Start: 03-06-20 End: 06-19-19 [...] Kenalog-40 Dec, 60 mg Start: 02-07-2022 Kenalog-40 13 Jan, 2022 40 mg Start: 11-20-2020 Kenalog -40 mg Oct, 40 mg Problems Active Problems Problem Classification Problem Date Documented Da te Episodic/Chronic Abdominal pain (19 sources) Lower abdominal pain; Translations: [Lower abdominal [...] 01-17-2025 Chronic Other aftercare (1 source) Other terminal system operator (current) drug therapy; Translations: [OTH SKILLED NURSING CURRENT DRUG THERAPY] Onset: 3 Episodic Other aftercare (10 sources) Polypharmacy ; Translations: [Other terminal system operator (current) drug therapy] 02-11-2024 Episodic Other [...] Test Name Value Interpretation Reference Range Facility IGP,APTIMA HPV,AGE GDLNon AGE GDLN ACOG TESTING Note . [facility] Comment on above: TESTS RESULT FLAG UN ITS REF RANGE LAB Clinician Provided Cytology Information Source.............Cervix;Endocervix No. of containers..01 ThinPrep Vial Age Algo ACOG Latasha... 29 FLAG LEGEND: L-Low Normal,H-High Normal,LL-Alert Low,HH-Alert High <-Panic Low,>-Panic High,A-Abnormal,AA-Critical Abnormal Performed at: 01 =G [address] [address] Yael Mancuso MD, HPV APTIMA Positive Abnormal Negative [facility] Comment on above: This nucleic acid am plification test detects fourteen high- risk HPV types (16,18,31,33,35,39,45,51,52,56,58,59,66,68) without differentiation. HPV GENOTYPE 16 Negative Negative [facility] HPV GENOTYPE 18,45 Negative Negative [facility] Comment on above: Performed at: =G - L [address] [id number] [place] Operator: Yael Mancuso MD, Phone: [phone] Performed at: - [facility] [id number] [place] Operator: Yael Mancuso MD, Phone: [phone] IGP, APTIMA HPV, RFX 16/18,45 Note . [facility] Comment on above: TESTS RESULT FLAG UN ITS REF RANGE LAB DIAGNOSIS: 02 NEGATIVE FOR INTRAEPITHELIAL LESION OR MALIGNANCY. Specimen adequacy: 02 Satisfactory for evaluation. Endocervical and/or squamous metaplastic cells (endocervical component) are present. Performed by: 02 Toan Lama, It Help Desk Analyst (ASCP) . 02 Note: Note 02 The [...] <-Panic Low,>-Panic High,A-Abnormal,AA-Critical Abnormal Performed at: [address] [address] Yael Mancuso MD, Interpretation and review of laboratory results Abnormal [facility] BRUSH-SPATULA CERVIX ENDOCERVIX [facility] Urineon 09-19-2024 Bacteria identified Cx Nom [...] Locations R1: This test was performed at: [facility], [address] [place] [address], [address] , , [facility] Comment on above: Performed By: #### [id number] #### [facility] [address] [place] [address] Ambulatory Visit Summaryon 0 09-17-2024 Ambulatory Visit Summary Ambulatory Visit Summary SHAILESH BLAKE :1970 Visit Date:09/17/2024 Ambulatory Visit Instructions Your Care Team Attending Physician - THERESA MOCTEZUMA, KAYY Buenrostro Primary Care Physician - ALYSSA ARREOLA CNP This Is Your Medications List albuterol (Albuterol (Eqv-ProAir HFA)) benztropine (benztropine 0.5 mg oral tablet) brexpiprazole (Rexulti 4 mg oral tablet) busPIRone (busPIRone 10 mg Tab) erenumab (Aimovig SureClick 70 mg/mL subcutaneous solution) fluticasone nasal (fluticasone 0.05 mg/inh Nasal Heppner) gabapentin (gabapentin 400 mg Cap) lamotrigine (lamotrigine [...] fluticasone nasal (fluticasone 0.05 mg/ inh Nasal Heppner) Nasal Inhalation Every day Unchanged gabapentin (gabapentin [...] choosing us for your care. Normal [facility] - Drug toxicology on 08-04-2024 Amphetamines Ql (U) Negative [facility] Benzodiazepines Ql (U) Negative [facility] Cocaine Ql (U) Negative [facility] Opiates Ql (U) Negative [facility] Phencyclidine Ql (U) Negative [facility] No Panel Informationon 08-04 Urine Barbiturates Screen Negative [facility] Urine Marijuana (THC) Screen Negative [facility] MR Cervical spine WO contras ton 05-26-[address] [address] Magnetic Resonance Report Signed Patient: SHAILESH BLAKE MR#: [id number] : 1970 Acct:[id number] Age/Sex: 53 / F ADM Date: 05/26/24 Loc: MRI Attending Dr: Cheyanne Schilling NP Ordering Physician: Cheyanne Schilling NP Date of Service: 05/26/24 Procedure(s): MR cervical spine wo con Accession Number(s): [id number] cc: ALYSSA ARREOLA ; Cheyanne Schilling NP [address] [address] Patient Name: SHAILESH BLAKE MRN: [id number] date: 1970 Sex: F Assigned Patient Location: MRI Current Patient Location: MRI Accession/Order Number: [id number] Exam Date: 05/26/2024 08:42 Report Date: 05/26/2024 [...] Signed By: 05/26/24 1139 DD/ 1136 TD/TT: Spray Gun Operator: [facility] Radiology, Radiologist, MD - 05/26/2024 [place] [address] Magnetic Resonance Report Signed Patient: SHAILESH BLAKE MR#: [id number] : 1970 Acct:[id number] Age/Sex: 53 / F ADM Date: 05/26/24 Loc: MRI Attending Dr: Cheyanne Schilling COLOR TECHNICIAN Ordering Physician: Cheyanne Schilling NP Date of Service: 05/26/24 Procedure(s): MR cervical spine wo con Accession Number(s): [id number] cc: ALYSSA ARREOLA ; Cheyanne Schilling NP [facility] [place] [id number] Patient Name: SHAILESH BLAKE MRN: [facility]:[id number] date: 1970 Sex: F Assigned Patient Location: MRI Current Patient Location: MRI Accession/Order Number: [id number] Exam Date: 05/26/2024 08:42 Report Date: 05/26/2024 [...] Signed By: 05/26/24 1139 DD/ 1136 TD/TT: Spray Gun Operator: [facility] [employer] Radiology Study observation (narrative) [facility] MR Cervical spine WO contras tOrdered By: Radiologist Radiology on 05-26-2024 [facility] [employer] e Work Phone: MR lumbar spine wo conon MR lumbar spine wo con [place] [address] MRI Report Signed Patient: Shailesh Blake MR#: [id number] : 1970 Acct:[id number] Age/Sex: 53 / F ADM Date: 02/25/24 Loc: Room: Type: [facility] Attending Dr: Asif Cox MD Copies to: [...] Benito Blake M.D.02/25/2024 3:32 PM Dictation Location: [place] [address] Transcribed By: [facility] 02/25/24 1532 Dictated By: Benito Blake DO 02/25/24 1527 Signed By: 02/25/24 1532 Normal [facility] EMG 2 Extremitieson 02-19-20 Normal [facility] NVC 9-10 Nerveson 02-19-2024 Normal [facility] C Urineon 02-14-2024 Bacteria identified Cx Nom (U) Microbiology PROCEDURE: Urine Culture [R1] SOURCE: U CleanCatch BODY SITE: COLLECTED DATE/TIME: 02/12/2024 09:25 EDT RECEIVED DATE/TIME: 02/12/2024 17:43 EDT START DATE/TIME: 02/12/2024 17:43 EDT FREE TEXT SOURCE: THERESA MOCTEZUMA, KAYY MIRAMOTNES PA-C, KAYY Buenrostro FINAL REPORTS Final Report [...] Locations R1: This test was performed at: [facility], [address] [place] [address], [address]- , [place], Normal [facility] Comment on above: Performed By: #### 2 [id number] #### [facility] [address] [place] [address] Ambulatory Visit Summaryon 1 Ambulatory Visit Summary [...] solution) fluticasone nasal (fluticasone 0.05 mg/inh Nasal Heppner) gabapentin (gabapentin 400 mg Cap) lamotrigine (lamotrigine [...] fluticasone nasal (fluticasone 0.05 mg/ inh Nasal Heppner) Nasal Inhalation Every day Unchanged gabapentin (gabapentin [...] choosing us for your care. Normal [facility] Urology Office/Clinic Noteon 02-12-2024 Urology Office/Clinic Note [...] 7 day(s), 14 tab(s), Refill(s) 0, [id number], 173, cm, 02/12/24 9:11:00 EDT, Height/Length Dosing, 146.2, kg, 02/12/24 9:11:00 EDT, Weight Dosing E&M of Est. Patient Moderate 30-39 Min 02003 2. OAB (overactive bladder) (N32.81: Overactive bladder) [...] for 7 day(s), 14 tab(s), Refill(s) 0, [facility] #[id number], 173, cm, 02/12/24 9:11:00 EDT, Height/Length Dosing, 146.2, kg, 02/12/24 9:11:00 EDT, Weight Dosing 29398 Measure Post Void residual urine and/or bladder capacity by US- non-imaging E&M of Est. Patient Moderate 30-39 Min 78484 Urine Culture Urnls Dip Stick Auto w/o Microscopy POC 79030 3. Mixed incontinence (N39.46: Mixed incontinence) Marked improvement in OAB/UUI after Botox 07/15/23. See #1 and #2. Knows Botox won't help w SYLVIE. Encouraged home PFPT. Ordered: sulfamethoxazole-trim ethoprim, 1 tab(s), Oral, BID for 7 day(s), 14 tab(s), Refill(s) 0, [id number], 173, cm, 02/12/24 9:11:00 EDT, Height/Length Dosing, 146.2, kg, 02/12/24 9:11:00 EDT, Weight Dosing E&M of Est. Patient Moderate 30-39 Min [address]1244 Follow-up With When Contact Information KAYY MIRAMONTES PA-C, URL [address] [address] Business (1) Additional Instructions: pending [...] Tab, Oral, BID fluticasone 0.05 mg/inh Nasal Heppner, Nasal, Daily gabapentin 400 mg Cap, Oral, TID lamotrigine 100 mg Tab, Oral, BID lamotrigine 200 mg Tab, Oral, BID meclizine 25 mg (more content not included)... Normal [facility] Comment on above: Result Comment: Elec tronically Signed By: KAYY MIRAMONTES PA-C\.br\Date and Time Signed: 02/12/24 09:45 EDT Provider Letteron 12-22-2023 Provider Letter Provider Letter December 22, 2023 SHAILESH BLAKE [address] [place] [address] : 1970 Dear Shailesh , We have [...] attention to this matter. Sincerely, [facility] [address] [place] [address] [facility] Provider Letteron 11-19-2023 Provider Letter Provider Letter November 19, 2023 SHAILESH BLAKE [address] [place] [address] : 1970 Dear Shailesh, We have been [...] your prompt attention to this matter. Sincerely, [facility] [address] [place] [address] [facility] Ambulatory Visit Summaryon 0 07-29-2023 Ambulatory Visit Summary SHAILESH BLAKE Roma :1970 Visit Date:07/29/2023 Ambulatory Visit Instructions Your [...] solution) fluticasone nasal (fluticasone 0.05 mg/inh Nasal Heppner) gabapentin (gabapentin 400 mg Cap) lamotrigine (lamotrigine [...] if asymptomatic. Where: [address] [place] [address] Medications What How Much When Instructions Unchanged [...] fluticasone nasal (fluticasone 0.05 mg/ inh Nasal Heppner) Nasal Inhalation Every day Contact prescribing physician [...] empty b (more content not included)... Normal [facility] Patient Educationon 07-29-19 Patient Education Obstetrics and [...] health care provider. General instructions ? Take rnbx-eba-risnxmb and prescription medicines only as told by [...] monitor yo (more content not included)... Normal [facility] Urology Office/Clinic Noteon 04-02-2024 Urology Office/Clinic Note Chief Complaint PRW pt. [...] In [address] [place] [address] Additional Instructions: Pt to call and cancel [...] Tab, Oral, BID fluticasone 0.05 mg/inh Nasal Heppner, Nasal, Daily gabapentin 400 mg Cap, Oral, [...] Comments zoster vaccine, inactivated 10/07/2021 Recorded SARSCoV2 mRNA(nsbybzhbf-ighp-k roselyn) vac 10/07/2021 Recorded SARS-CoV-2 (COVID-19) mRNA BNT-162b2 vax 2020 Recorded SARS-CoV-2 (COVID-19) mRNA BNT-162b2 vax 12/02/2020 Recorded influenza virus vaccine, inactivated - Not Given Postpone (more content not included)... [facility] Comment on above: Result Comment: Elec tronically Signed By: KAYY MIRAMONTES PA-C\.br\Date and Time Signed: 07/29/23 15:33 EDT\.br\Electronically Co-Signed By: Caren Shaw MA\.br\Date and Time Co-Signed: 07/29/23 15:22 EDT Consent for Procedure/Surger yon 07-15-2023 Consent for Procedure/Surgery [id number]# 1.00TIFF [facility] Consent for Treatmenton 06-26 Consent for Treatment [id number]#1 .00TIFF [facility] IntraOperative Documentson 0 07-15-2023 IntraOperative Documents [id number]# 1.00TIFF [facility] Main OR Intraoperative Recor don 07-15-2023 Main OR Intraoperative Record IntraOp Document Type FTURO Summary Primary Physician: Hermilo GASTON MD Finalized Date/Time: 07/15/23 08:54:30 Pt. Name: SHAILESH BLAKE Roma Cerrato/Sex: 1970 Female Med Rec #: [id number] Physician: Hermilo GASTON MD Financial #: [id number] Pt. Type: O Room/Bed: / Admit/Disch: 07/15/23 07:29:47 - Institution: Case Times FTURO Entry 1 Patient Times In Room 07/15/23 08:40:00 Out Room 07/15/23 08:56:00 Procedure Times Start 07/15/23 08:42:00 Stop 07/15/23 08:51:00 Anesthesia Times Last Modified By: Sushma MASON, TRAVONOR, Mary Beth 07/15/23 08:53:50 Case Attendance FTURO Entry 1 Entry 2 Entry 3 Case Attendee Hermilo GASTON MD RN, CNOR, Dakota HERNANDEZ, Lissa Clinton Role Performed Surgeon - Primary Scrub - Primary Scrub - Primary Time In 07/15/23 08:40:00 07/15/23 08:40:00 07/15/23 08:40:00 Time Out 07/15/23 08:56:00 07/15/23 08:56:00 07/15/23 08:56:00 Procedure CYSTOSCOPY LOCAL WITH CYSTOSCOPY LOCAL WITH CYSTOSCOPY LOCAL WITH URETHRAL DILATION(.) URETHRAL DILATION(.) URETHRAL DILATION(.) Comments Last Modified By: Sushma RN, CNOR, Sushma RN, CNOR, Sushma RN, TRAVONOR, Mary Beth 07/15/23 Mary [...] 08:53:52 General Comments: botox 100 units lot [id number] General Case Data FTURO Pre-Care Text: Classifies [...] ASHKAN Ordaz RN, Ruthann 07/15/23 08:54 Normal [facility] Main OR Preoperative Recordo n 07-15-2023 Main OR Preoperative Record Holding Area Document Type FTURO Summary Primary Physician: Hermilo GASTON MD Finalized Date/Time: 07/15/23 07:47:45 Pt. Name: [facility] /Sex: 1970 Female Med Rec #: [id number] Physician: Hermilo GASTON MD Financial #: [id number] Pt. Type: O Room/Bed: / Admit/Disch: 07/15/23 [...] By: Lissa Quezada RN 07/15/23 07:47 Normal [facility] Operative Reporton Operative Report Patient: SHAILESH BLAKE [...] with antibiotic coverage, Follow up arranged. Normal [facility] Comment on above: Result Comment: Elec tronically Signed By: ALEK JARAMILLO, Hermilo Bolaños\Date and Time Signed: 07/15/23 08:53 EDT Outpatient Surgery Discharge Instructionon 07-15-2023 Outpatient Surgery Discharge Instruction [id number]# 1.00TIFF [facility] Pre-Certification Formon Pre-Certification Form [id number]#1 .00TIFF [facility] C Urineon 07-10-2023 Bacteria identified Cx Nom [...] This test was performed at: [facility], [address] [place] [address], [facility] , , [facility] Comment on above: Performed By: #### 2 [id number] ####[facility] [address] [place] [address] Pre-Certification Formon Pre-Certification Form [id number]#1 .00TIFF [facility] Pre-Certification Formon Pre-Certification Form [id number]#1 .00TIFF [facility] Pre-Certification Form [id number]#1 .00TIFF [facility] Ambulatory Visit Summaryon 0 3-12-2024 Ambulatory Visit Summary SHAILESH BLAKE :1970 Visit [...] solution) fluticasone nasal (fluticasone 0.05 mg/inh Nasal Heppner) gabapentin (gabapentin 400 mg Cap) lamotrigine (lamotrigine [...] Appointments Friday 10:30 AM EDT With: Where: [facility] Friday 8:30 AM EDT With: Where: [facility] Friday 2:40 PM EDT With: KAYY MIRAMONTES PA-C Where: [facility] Pre-Certification Formon Pre-Certification Form [id number]#1 .00TIFF Normal [facility] Pre-Certification Formon Pre-Certification Form [id number]# 1.00TIFF Normal [facility] Pre-Certification Form [id number]#1 .00TIFF [facility] Pre-Certification Formon Pre-Certification Form [id number]#1 .00TIFF Normal [facility] Pre-Certification Formon Pre-Certification Form [id number]#1 .00TIFF [facility] Urology Office/Clinic Noteon 05-30-2023 Urology Office/Clinic Note [...] complaints: _ History of Present Illness staff [facility] reviewed and agree. Review of Systems PHQ [...] -Begin Tolterodine ER 4mg. Rx sent to [facility] [employer] Monitor for SEs. -Will discuss case with [...] E&M of Est. Patient Moderate 30-39 Min 53561 2. OAB (overactive bladder) (N32.81: Overactive bladder) see #1 Orders: tolterodine, 4 mg = 1 cap(s), Oral, Daily, X 30 day(s), # 30 cap(s), Refills(s) 11, Pharmacy: [facility]/pharmacy #[id number], 173, cm, 05/28/23 16:07:00 EST, Height/Length Dosing, 142, kg, 05/28/23 16:07:00 EST, Weight Dosing 14231 Measure Post Void residual urine and/or bladder capacity by US- non-imaging Urnls Dip Stick Auto w/o Microscopy POC 16268 Follow-up With When Contact Information KAYY MIRAMONTES PA-C, URL [address] [place] [address] [phone] Additional Instructions: sched cysto or Botox Patient [...] Tab, Oral, BID fluticasone 0.05 mg/inh Nasal Heppner, Nasal, Daily gabapentin 400 mg Cap, Oral, [...] (Rash) aspir (more content not included)... Normal [facility] Comment on above: Result Comment: Elec tronically [...] solution) fluticasone nasal (fluticasone 0.05 mg/inh Nasal Heppner) gabapentin (gabapentin 400 mg Cap) lamotrigine (lamotrigine [...] KAYY MIRAMONTES PA-C, URL When: Where: [address] [place] [address] [phone] Medications What How Much When Instructions Unchanged [...] fluticasone nasal (fluticasone 0.05 mg/ inh Nasal Heppner) Nasal Inhalation Every day Unchanged gabapentin (gabapentin [...] including vitamins, herbs, eye drops, creams, and uunz-fot-hfadrtl medicines. ? Any problems you or family [...] your health (more content not included)... Normal [facility] Patient Educationon 05-28-19 Patient Education Urology Botulinum [...] including vitamins, herbs, eye drops, creams, and rbqq-lcm-helityq medicines. ? Any problems you or family [...] tells you to take them. ? Taking azhy-bai-volihao medicines, vitamins, herbs, and supplements. General instructions [...] these instructions at home: Medicines ? Take sblp-std-aculrrl and prescription medicines only as told by [...] health ca (more content not included)... Normal [facility] XR hip LT min 2V(w/wo pelvis )*on 04-09-2023 XR hip LT min 2V(w/wo pelvis)* [facility] [employer] Other XR hip LT min 2V(w/wo pelvis)* [facility] [employer] Other XR hip LT min 2V(w/wo pelvis)* [address] [place] [address] [employer] Other XR hip LT min 2V(w/wo pelvis)* [place] [address] [employer] Other XR hip LT min 2V(w/wo pelvis)* XRay Report [employer] Other XR hip LT min 2V(w/wo pelvis)* Signed [employer] Other XR hip LT min 2V(w/wo pelvis)* Patient: Shailesh Blake MR#: [id number] [employer] Other XR hip LT min 2V(w/wo pelvis)* : 1970 Acct:[id number] [employer] Other XR hip LT min 2V(w/wo pelvis)* Age/Sex: 52 / F ADM Date: 04/09/23 [employer] Other XR hip LT min 2V(w/wo pelvis)* Loc: XD Room: Type: [facility] [employer] Other XR hip LT min 2V(w/wo pelvis)* Attending Dr: Destini Kilgore NP [employer] Other XR hip LT min 2V(w/wo pelvis)* Copies to: Destini Kilgore NP [employer] Other XR hip LT min 2V(w/wo pelvis)* Ordering Provider: Destini Kilgore NP [employer] Other XR hip LT min 2V(w/wo pelvis)* Date of Service: 04/09/23 [employer] Other XR hip LT min 2V(w/wo pelvis)* XR/XR hip LT min 2V(w/wo pelvis)*: Left hip pain [employer] Other XR hip LT min 2V(w/wo pelvis)* Left hip 2 views. [employer] Other XR hip LT min 2V(w/wo pelvis)* Reason for exam: Left hip pain radiates into the joint and down into the knee for 3 days. [employer] Other XR hip LT min 2V(w/wo pelvis)* COMPARISON: None. [employer] Other XR hip LT min 2V(w/wo pelvis)* FINDINGS: Mild degenerative changes of the left hip without acute bony process. [employer] Other XR hip LT min 2V(w/wo pelvis)* XR/XR hip LT min 2V(w/wo pelvis)* [employer] Other XR hip LT min 2V(w/wo pelvis)* IMPRESSION: Mild degenerative changes of the left hip without acute bony process. [employer] Other XR hip LT min 2V(w/wo pelvis)* Impression dictated by: Memo Blanchard Jr., D.OPromise04/09/2023 3:57 PM [employer] Other XR hip LT min 2V(w/wo pelvis)* Dictation Location: [place] [address] [employer] Other XR hip LT min 2V(w/wo pelvis)* Transcribed By: PWS 04/09/23 [facility] [employer] Other XR hip LT min 2V(w/wo pelvis)* Dictated By: Memo Blanchard Jr, DO 04/09/23 [facility] [employer] Other XR hip LT min 2V(w/wo pelvis)* Signed By: [employer] Other XR hip LT min 2V(w/wo pelvis)* 04/09/23 [facility] [employer] Other US PELVIS AND TRANSVAGon US PELVIS [...] by: JACINTA GUTIERREZ Date: 2022-08-27 07:34 Normal [facility] XR DEXA BONE DENSITYon 08-26 XR [...] by: JACINTA GUTIERREZ Date: 2022-08-26 16:16 Normal [facility] PAP ACOG PANEL 2: 30 to 65on 08-10-2022 . . Normal [facility] Comment on above: Result Comment: Perf ormed at: WB Performed By: #### 4 [id number] #### [facility] [address] [place] [address] Dr. Beth Alanis Age Gdln ACOG Testing 30-65 [facility] Comment on above: Performed By: #### 4 [id number] #### [facility] [address] [address] [address] Beth Alanis DIAGNOSIS: Comment Normal [facility] Comment on above: Result Comment: NEGA TIVE FOR INTRAEPITHELIAL LESION OR MALIGNANCY. Performed at: WB Performed By: #### 4 [id number] #### [facility] [address] [place] [address] Dr. Beth Alanis HPV Aptima Negative Normal Negative [facility] Comment on above: Result Comment: This nucleic acid amplification test detects fourteen high-risk HPV types (16,18,31,33,35,39,45,51,52,56,58,59,66,68) without differentiation. Performed at: =G Performed By: #### 4 [id number] #### [facility] [address] [place] [address] Dr. Beth Alanis HPV Genotype Reflex Comment Normal [facility] Comment on above: Result Comment: Crit eria not met, HPV Genotype not performed. Performed at: WB Performed By: #### 4 [id number] #### [facility] [address] [place] [address] Dr. Beth Alanis Methodology: Comment Normal [facility] Comment on above: Result Comment: This liquid based ThinPrep(R) pap test was screened with the use of an image guided system. Performed at: WB Performed By: #### 4 [id number] #### [facility] [address] [place] [address] Dr. Beth Alanis Note: Comment Normal [facility] Comment on above: Result Comment: The Pap smear is a screening test designed to aid in the detection of premalignant and malignant conditions of the uterine cervix. It is not a diagnostic procedure and should not be used as the sole means of detecting cervical cancer. Both false-positive and false-negative reports do occur. . Performed at: WB Performed By: #### 4 [id number] #### [facility] [address] [place] [address] Dr. Beth Alanis Performed by: Comment Normal [facility] Comment on above: Result Comment: Evelyn Ayala, Head Of Design (ASCP) Performed at: WB Performed By: #### 4 [id number] #### [facility] [address] [place] [address] Dr. Beth Alanis Specimen adequacy: Comment Normal [facility] Comment on above: Result Comment: Sati sfactory for evaluation. Endocervical and/or squamous metaplastic cells (endocervical component) are present. Performed at: WB Performed By: #### 4 [id number] #### [facility] [address] [place] [address] Dr. Beth Alanis [facility] SARS-CoV-2 (COVID-19) RNA ANITA+probe Ql (Unsp spec) Not detected Normal NOT DETECTED [facility] Comment on above: Result Comment: This test is not yet approved or cleared by the [place] FDA. When there are no FDA-approved or cleared tests available, and other criteria are met, FDA can make tests available under an emergency access mechanism called an Emergency Use Authorization (EUA). The EUA for this test is supported by the Machine Operator Hop Worker of Health and Human Service's (HHS's) declaration [...] consistent with SARS-CoV-2. Performed By: #### B COLOR TECHNICIAN, BMP, HSTROPN #### [facility] [address] [place] [address] Dr. eBth Alanis INFLUENZA A AND B AGon 07-14 [facility] SEE BELOW Normal [facility] Comment on above: Result Comment: Nega tive for Flu A protein angiten. Infection due to Flu A cannot be ruled out. Flu A angiten in the sample may be below the detection limit of the test. Performed By: #### I NFLUAB #### [facility] [address] [address] [address] Beth Alanis INFLUBNEGH SEE BELOW Normal [facility] Comment on above: Result Comment: Nega tive for Flu B protein antigen. Infection due to Flu B cannot be ruled out. Flu B antigen in the sample may be below the detection limit of the test. Performed By: #### I NFLUAB #### [facility] [address] [address] [address] Beth Alanis INFLUENZA A AG Negative Normal NEGATIVE SEE COMMENT [facility] Comment on above: Performed By: #### I NFLUAB #### [facility] [address] [place] [address] Dr. Beth Alanis INFLUENZA B AG Negative Normal NEGATIVE SEE COMMENT [facility] Comment on above: Performed By: #### I NFLUAB #### [facility] [address] [place] [address] Dr. Beth Alanis SYMPTOMATIC COVID-19 ANTIGEN on 07-14-2022 EUA Statement SEE BELOW Normal [facility] Comment on above: Result Comment: [...] is revoked sooner. Performed By: #### B CHARI URIAS, HSTROPN #### [facility] [address] [place] [address] Dr. Beth Alanis SARS-CoV-2 (COVID-19) RNA ANITA+probe Ql (Unsp spec) Negative Normal NEGATIVE [facility] Comment on above: Performed By: #### B COLOR TECHNICIAN BMP, HSTROPN #### [facility] [address] [place] [address] Dr. Beth Alanis XR CHEST 1 Von 07-14-2022 XR CHEST 1 V EXAM: Chest x-ray HISTORY: . COUGH . COMPARISON: 10/23/2021 TECHNIQUE: Single view of the chest. FINDINGS: Heart and vascularity are unremarkable. Lungs are free of focal infiltrates. Grossly no bony abnormality is appreciated. Impression: No acute heart or lung disease identified. Electronically authenticated by: MELLISSA PRIEST Date: 2022-07-14 11:13 Normal [facility] VAGINITIS/VAGINOSIS DNA PROB Pablo 05-22-2022 Rosie species Negative Normal Negative [facility] Comment on above: Performed By: #### V AGINT #### [facility] [address] [address] [address] Beth Alanis Gardnerella vaginalis Negative Normal Negative [facility] Comment on above: Performed By: #### V AGINT #### [facility] [address] [address] [address] Beth Alanis Trichomonas vaginalis Negative Normal Negative [facility] Comment on above: Performed By: #### V AGINT #### [facility] [address] [address] [address] Beth Alanis LIPID PROFILEon 03-18-2022 CHOL-HDL RATIO NORM SEE BELOW Normal [facility] Comment on above: Result Comment: 3.3 - 4.4 LOW RISK 4.4 - 7.1 AVERAGE RISK 7.1 - 11.0 MODERATE RISK >11.0 HIGH RISK Performed By: #### 4 [id number] #### [facility] [address] [place] [address] Dr. Beth Alanis Cholesterol [Mass/Vol] 183 mg/dL Normal <=200 [facility] Comment on above: Performed By: #### 4 [id number] #### [facility] [address] [address] [address] Beth Alanis Cholesterol in HDL [Mass/Vol] 56 mg/dL Normal 40-60 [facility] Comment on above: Performed By: #### 4 [id number] #### [facility] [address] [address] [address] Beth Alanis Cholesterol in LDL [Mass/Vol] 106.8 mg/dL Normal [facility] Comment on above: Performed By: #### 4 [id number] #### [facility] [address] [address] [address] Beth Alanis Cholesterol.total/C holesterol in HDL [Mass ratio] 3.3 {ratio} Normal [facility] Comment on above: Performed By: #### 4 [id number] #### [facility] [address] [address] [address] Beth Alanis HDL NORMAL > or = 60 mg/dl - LO W CARDIOVASCULAR RISK <40 mg/dl - HIGH CARDIOVASCULAR RISK Normal [facility] Comment on above: Performed By: #### 4 [id number] #### [facility] [address] [address] [address] Beth Alanis LDL CALC NORMAL SEE BELOW Normal [facility] Comment on above: Result Comment: <100 mg/dl OPTIMAL 100 - 129 mg/dl NEAR OR ABOVE OPTIMAL 130 - 159 mg/dl BORDERLINE HIGH 160 - 189 mg/dl HIGH >190 mg/dl VERY HIGH Performed By: #### 4 [id number] #### [facility] [address] [address] [address] Beth Alanis Triglyceride [Mass/Vol] 101 mg/dL Normal <=150 [facility] Comment on above: Performed By: #### 4 [id number] #### [facility] [address] [place] [address] Dr. Beth Alanis VLDL CALC 20.2 mg/dL Normal [facility] Comment on above: Performed By: #### 4 [id number] #### [facility] [address] [place] [address] Dr. Beth Alanis PROF 14(COMP METB)on 022 Albumin [Mass/Vol] 3.8 g/dL Normal 3.4-5.0 [facility] Comment on above: Performed By: #### 4 [id number] #### [facility] [address] [place] [address] Dr. Beth Alanis Albumin/Globulin [Mass ratio] 0.8 {ratio} Normal [facility] Comment on above: Performed By: #### 4 [id number] #### [facility] [address] [place] [address] Dr. Beth Alanis ALP [Catalytic activity/Vol] 108 U/L Normal 46-116 [facility] Comment on above: Performed By: #### 4 [id number] #### [facility] [address] [place] [address] Dr. Beth Alanis ALT [Catalytic activity/Vol] 28 U/L Normal 14-59 [facility] Comment on above: Performed By: #### 4 [id number] #### [facility] [address] [address] [address] Beth Alanis Anion gap [Moles/Vol] 10.3 mmol/L Normal [facility] Comment on above: Performed By: #### 4 [id number] #### [facility] [address] [address] [address] Beth Alanis AST [Catalytic activity/Vol] 18 U/L Normal 15-37 [facility] Comment on above: Performed By: #### 4 [id number] #### [facility] [address] [place] [address] Dr. Beth Alanis Bilirubin [Mass/Vol] 0.7 mg/dL Normal 0.2-1.0 [facility] Comment on above: Performed By: #### 4 [id number] #### [facility] [address] [place] [address] Dr. Beth Alanis Calcium [Mass/Vol] 9.5 mg/dL Normal 8.5-10.1 [facility] Comment on above: Performed By: #### 4 [id number] #### [facility] [address] [place] [address] Dr. Beth Alanis Chloride [Moles/Vol] 102 mmol/L Normal 98-107 [facility] Comment on above: Performed By: #### 4 [id number] #### [facility] [address] [place] [address] Dr. Beth Alanis CO2 [Moles/Vol] 27.6 mmol/L Normal 21.0-32.0 [facility] Comment on above: Performed By: #### 4 [id number] #### [facility] [address] [place] [address] Dr. Beth Alanis Creatinine [Mass/Vol] 0.93 mg/dL Normal 0.55-1.02 [facility] Comment on above: Performed By: #### 4 [id number] #### [facility] [address] [place] [address] Dr. Beth Alanis EGFR-AF PORTUGUESE >60 Normal >=60 [facility] Comment on above: Performed By: #### 4 [id number] #### [facility] [address] [address] [address] Beth Alanis EGFR-NON AF PORTUGUESE >60 Normal >=60 [facility] Comment on above: Performed By: #### 4 [id number] #### [facility] [address] [address] [address] Beth Alanis Globulin (S) [Mass/Vol] 5.0 g/dL Normal [facility] Comment on above: Performed By: #### 4 [id number] #### [facility] [address] [address] [address] Beth Alanis Glucose [Mass/Vol] 108 mg/dL Critically high 74-106 [facility] Comment on above: Performed By: #### 4 [id number] #### [facility] [address] [place] [address] Dr. Beth Alanis Potassium [Moles/Vol] 3.9 mmol/L Normal 3.5-5.1 [facility] Comment on above: Performed By: #### 4 [id number] #### [facility] [address] [address] [address] Beth Alanis Protein [Mass/Vol] 8.8 g/dL Critically high 6.4-8.2 [facility] Comment on above: Performed By: #### 4 [id number] #### [facility] [address] [place] [address] Dr. Beth Alanis Sodium [Moles/Vol] 136 mmol/L Normal 136-145 [facility] Comment on above: Performed By: #### 4 [id number] #### [facility] [address] [place] [address] Dr. Beth Alanis Urea nitrogen [Mass/Vol] 17.0 mg/dL Normal 7.0-18.0 [facility] Comment on above: Performed By: #### 4 [id number] #### [facility] [address] [place] [address] Dr. Beth Alanis Urea nitrogen/Creatinine [Mass ratio] 18.3 mg/mg Normal [facility] Comment on above: Performed By: #### 4 [id number] #### [facility] [address] [address] [address] Beth Alanis MG MAMM SCREEN 3D LUCINDA CADon 11-22-2021 MG MAMM SCREEN 3D LUCINDA CAD Patient: SHAILESH BLAKE Exam Date: 11/22/2021 : 1970 Gender:F Ordering : DR MARTI JEREZ . Admission #: [id number] Family : Order #: [id number] CLICK HERE TO VIEW EXAM RADIOLOGY REPORT [...] Treatments None Family Cancers None LOCATION: [facility] BREAST COMPOSITION: Heterogeneously dense,which may [...] Gutierrez M.D. on 11/22/2021 at 15:52 Normal [facility] GLUCOSE BLOODon 11-21-2021 Glucose [Mass/Vol] 110 mg/dL Critically high 74-106 [facility] Comment on above: Performed By: #### 4 [id number] #### [facility] [address] [address] [address] Beth Alanis LIPID PROFILEon 11-21-2021 CHOL-HDL RATIO NORM SEE BELOW Normal [facility] Comment on above: Result Comment: 3.3 - 4.4 LOW RISK 4.4 - 7.1 AVERAGE RISK 7.1 - 11.0 MODERATE RISK >11.0 HIGH RISK Performed By: #### 4 [id number] #### [facility] [address] [address] [address] Beth Alanis Cholesterol [Mass/Vol] 258 mg/dL Critically high <=200 [facility] Comment on above: Performed By: #### 4 [id number] #### [facility] [address] [address] [address] Beth Alanis Cholesterol in HDL [Mass/Vol] 34 mg/dL Critically low 40-60 [facility] Comment on above: Performed By: #### 4 [id number] #### [facility] [address] [address] [address] Beth Alanis Cholesterol in LDL [Mass/Vol] 161.4 mg/dL Normal [facility] Comment on above: Performed By: #### 4 [id number] #### [facility] [address] [address] [address] Beth Alanis Cholesterol.total/C holesterol in HDL [Mass ratio] 7.6 {ratio} Normal [facility] Comment on above: Performed By: #### 4 [id number] #### [facility] [address] [address] [address] Beth Alanis HDL NORMAL > or = 60 mg/dl - LO W CARDIOVASCULAR RISK <40 mg/dl - HIGH CARDIOVASCULAR RISK Normal [facility] Comment on above: Performed By: #### 4 [id number] #### [facility] [address] [address] [address] Beth Alanis LDL CALC NORMAL SEE BELOW Normal [facility] Comment on above: Result Comment: <100 mg/dl OPTIMAL 100 - 129 mg/dl NEAR OR ABOVE OPTIMAL 130 - 159 mg/dl BORDERLINE HIGH 160 - 189 mg/dl HIGH >190 mg/dl VERY HIGH Performed By: #### 4 [id number] #### [facility] [address] [address] [address] Beth Alanis Triglyceride [Mass/Vol] 313 mg/dL Critically high <=150 [facility] Comment on above: Performed By: #### 4 [id number] #### [facility] [address] [address] [address] Beth Alanis VLDL CALC 62.6 mg/dL Normal [facility] Comment on above: Performed By: #### 4 [id number] #### [facility] [address] [place] [address] Dr. Beth Alanis BNPon 10-23-2021 Natriuretic peptide B (Bld) [Mass/Vol] 15.0 pg/mL Normal <=900.0 [facility] Comment on above: Performed By: #### B COLOR TECHNICIAN, BMP, HSTROPN #### [facility] [address] [place] [address] Dr. Beth Alanis CBC AUTO DIFFon 10-23-2021 BASO # 0.1 103/ul Normal 0.0-0.1 [facility] Comment on above: Performed By: #### B COLOR TECHNICIAN, BMP, HSTROPN #### [facility] [address] [place] [address] Dr. Beth Alanis Basophils/100 WBC (Bld) 0.6 % Normal 0.2-2.0 [facility] Comment on above: Performed By: #### B COLOR TECHNICIAN, BMP, HSTROPN #### [facility] [address] [place] [address] Dr. Beth Alanis EO # 0.1 103/ul Normal 0.0-0.7 [facility] Comment on above: Performed By: #### B COLOR TECHNICIAN, BMP, HSTROPN #### [facility] [address] [place] [address] Dr. Beth Alanis Eosinophils/100 WBC (Bld) 1.8 % Normal 0.9-7.0 [facility] Comment on above: Performed By: #### B COLOR TECHNICIAN, BMP, HSTROPN #### [facility] [address] [place] [address] Dr. Beth Alanis Erythrocyte distribution width (RBC) [Ratio] 13.6 % Normal 11.0-15.0 [facility] Comment on above: Performed By: #### B COLOR TECHNICIAN, BMP, HSTROPN #### [facility] [address] [place] [address] Dr. Beth Alanis Hematocrit (Bld) [Volume fraction] 46.6 % Normal 36.0-48.0 [facility] Comment on above: Performed By: #### B COLOR TECHNICIAN, BMP, HSTROPN #### [facility] [address] [place] [address] Dr. Beth Alanis Hemoglobin (Bld) [Mass/Vol] 15.1 g/dL Normal 12.0-16.0 [facility] Comment on above: Performed By: #### B COLOR TECHNICIAN, BMP, HSTROPN #### [facility] [address] [place] [address] Dr. Beth Alanis IG # 0.02 10e3/ul Normal 0.00-0.03 [facility] Comment on above: Performed By: #### B COLOR TECHNICIAN, BMP, HSTROPN #### [facility] [address] [place] [address] Dr. Beth Alanis IG % 0.3 % Normal 0.0-0.5 [facility] Comment on above: Performed By: #### B COLOR TECHNICIAN, BMP, HSTROPN #### [facility] [address] [place] [address] Dr. Beth Alanis LYMPH # 1.9 103/ul Normal 1.2-3.8 [facility] Comment on above: Performed By: #### B COLOR TECHNICIAN, BMP, HSTROPN #### [facility] [address] [place] [address] Dr. Beth Alanis Lymphocytes/100 WBC (Bld) 23.9 % Normal 20.5-60.0 [facility] Comment on above: Performed By: #### B COLOR TECHNICIAN, BMP, HSTROPN #### [facility] [address] [place] [address] Dr. Beth Alanis MANUAL DIFF REQ NO Normal [facility] Comment on above: Performed By: #### B COLOR TECHNICIAN, BMP, HSTROPN #### [facility] [address] [place] [address] Dr. Beth Alanis MCH (RBC) [Entitic mass] 29.8 pg Normal 26.7-34.0 [facility] Comment on above: Performed By: #### B COLOR TECHNICIAN, BMP, HSTROPN #### [facility] [address] [place] [address] Dr. Beth Alanis MCHC (RBC) [Mass/Vol] 32.4 g/dL Normal 29.9-35.2 [facility] Comment on above: Performed By: #### B COLOR TECHNICIAN, BMP, HSTROPN #### [facility] [address] [place] [address] Dr. Beth Alanis MCV (RBC) [Entitic vol] 91.9 fL Normal 81.0-99.0 [facility] Comment on above: Performed By: #### B COLOR TECHNICIAN, BMP, HSTROPN #### [facility] [address] [place] [address] Dr. Beth Alanis MONO # 0.6 103/ul Normal 0.3-0.8 [facility] Comment on above: Performed By: #### B COLOR TECHNICIAN, BMP, HSTROPN #### [facility] [address] [place] [address] Dr. Beth Alanis Monocytes/100 WBC (Bld) 7.7 % Normal 1.7-12.0 [facility] Comment on above: Performed By: #### B COLOR TECHNICIAN, BMP, HSTROPN #### [facility] [address] [place] [address] Dr. Beth Alanis NEUT # 5.1 103/ul Normal 1.4-6.5 [facility] Comment on above: Performed By: #### B COLOR TECHNICIAN, BMP, HSTROPN #### [facility] [address] [place] [address] Dr. Beth Alanis Neutrophils/100 WBC (Bld) 65.7 % Normal 43.0-75.0 [facility] Comment on above: Performed By: #### B COLOR TECHNICIAN, BMP, HSTROPN #### [facility] [address] [place] [address] Dr. Beth Alanis Platelet mean volume (Bld) [Entitic vol] 9.6 fL Normal 9.5-13.5 [facility] Comment on above: Performed By: #### B COLOR TECHNICIAN, BMP, HSTROPN #### [facility] [address] [place] [address] Dr. Beth Alanis PLT 324 103/ul Normal 150-450 [facility] Comment on above: Performed By: #### B COLOR TECHNICIAN, BMP, HSTROPN #### [facility] [address] [place] [address] Dr. Beth Alanis RBC 5.07 106/ul Normal 4.20-5.40 [facility] Comment on above: Performed By: #### B COLOR TECHNICIAN, BMP, HSTROPN #### [facility] [address] [address] [address] Beth Alanis WBC 7.8 103/ul Normal 4.0-11.0 [facility] Comment on above: Performed By: #### B COLOR TECHNICIAN, BMP, HSTROPN #### [facility] [address] [place] [address] Dr. Beth Alanis PROF CHEM 8 (BAS METB)on Anion gap [Moles/Vol] 6.7 mmol/L Normal [facility] Comment on above: Performed By: #### B COLOR TECHNICIAN, BMP, HSTROPN #### [facility] [address] [place] [address] Dr. Beth Alanis Calcium [Mass/Vol] 9.3 mg/dL Normal 8.5-10.1 [facility] Comment on above: Performed By: #### B COLOR TECHNICIAN, BMP, HSTROPN #### [facility] [address] [place] [address] Dr. Beth Alanis Chloride [Moles/Vol] 104 mmol/L Normal 98-107 [facility] Comment on above: Performed By: #### B COLOR TECHNICIAN, BMP, HSTROPN #### [facility] [address] [place] [address] Dr. Beth Alanis CO2 [Moles/Vol] 31.3 mmol/L Normal 21.0-32.0 [facility] Comment on above: Performed By: #### B COLOR TECHNICIAN, BMP, HSTROPN #### [facility] [address] [place] [address] Dr. Beth Alanis Creatinine [Mass/Vol] 0.98 mg/dL Normal 0.55-1.02 [facility] Comment on above: Performed By: #### B COLOR TECHNICIAN, BMP, HSTROPN #### [facility] [address] [address] [address] Beth Alanis EGFR-AF PORTUGUESE >60 Normal >=60 [facility] Comment on above: Performed By: #### B COLOR TECHNICIAN, BMP, HSTROPN #### [facility] [address] [address] [address] Beth Alanis EGFR-NON AF PORTUGUESE =60 Normal >=60 [facility] Comment on above: Performed By: #### B COLOR TECHNICIAN, BMP, HSTROPN #### [facility] [address] [place] [address] Dr. Beth Alanis Glucose [Mass/Vol] 104 mg/dL Normal 74-106 [facility] Comment on above: Performed By: #### B COLOR TECHNICIAN, BMP, HSTROPN #### [facility] [address] [place] [address] Dr. Beth Alanis Potassium [Moles/Vol] 4.0 mmol/L Normal 3.5-5.1 [facility] Comment on above: Performed By: #### B COLOR TECHNICIAN, BMP, HSTROPN #### [facility] [address] [place] [address] Dr. Beth Alanis Sodium [Moles/Vol] 138 mmol/L Normal 136-145 [facility] Comment on above: Performed By: #### B COLOR TECHNICIAN, BMP, HSTROPN #### [facility] [address] [place] [address] Dr. Beth Alanis Urea nitrogen [Mass/Vol] 12.0 mg/dL Normal 7.0-18.0 [facility] Comment on above: Performed By: #### B COLOR TECHNICIAN, BMP, HSTROPN #### [facility] [address] [place] [address] Dr. Beth Alanis Urea nitrogen/Creatinine [Mass ratio] 12.2 mg/mg Normal [facility] Comment on above: Performed By: #### B COLOR TECHNICIAN, BMP, HSTROPN #### [facility] [address] [place] [address] Dr. Beth Alanis TROPONIN, HIGH SENSITIVITYon 10-23-2021 HSTROP 5.6 pg/mL Normal 4.0-51.3 [facility] Comment on above: Result Comment: CUT- OFF POINTS HAVE BEEN ESTABLISHED BASED ON THE FOURTH UNIVERSAL DEFINITIONS OF MYOCARDIAL INFARCTION. THE UPPER REFERENCE LIMIT (URL) OF TROPONIN, DEFINED THE 99TH PERCENTILE OF cTnI DISTRIBUTION IN A REFERENCE POPULATION, HAS BEEN CONFIRMED THE DECISION THRESHOLD FOR UT DIAGNOSIS. Performed By: #### B COLOR TECHNICIAN, BMP, HSTROPN #### [facility] [address] [place] [address] Dr. Beth Alanis XR CHEST 1 Von [...] CHELY KEITH Date: 2021-10-23 16:45 Normal [facility] INSULINon 09-05-2021 Insulin 26.0 uIU/mL Critically high 2.6-24.9 [facility] Comment on above: Performed By: #### [id number] #### [facility] [address] [place] [address] Dr. Beth Alanis OCC BLD IMMUNO SCREENon 08-26 OCCULT BLOOD Negative Normal NEGATIVE [facility] Comment on above: Performed By: #### O BSCRN #### [facility] [address] [place] [address] Dr. Beth Alanis CBC AUTO DIFFon 09-04-2021 BASO # 0.0 103/ul Normal 0.0-0.1 [facility] Comment on above: Performed By: #### C BC #### [facility] [address] [place] [address] Dr. Beth Alanis Basophils/100 WBC (Bld) 0.4 % Normal 0.2-2.0 [facility] Comment on above: Performed By: #### C BC #### [facility] [address] [place] [address] Dr. Beth Alanis EO # 0.1 103/ul Normal 0.0-0.7 [facility] Comment on above: Performed By: #### C BC #### [facility] [address] [place] [address] Dr. Beth Alanis Eosinophils/100 WBC (Bld) 1.2 % Normal 0.9-7.0 [facility] Comment on above: Performed By: #### C BC #### [facility] [address] [place] [address] Dr. Beth Alanis Erythrocyte distribution width (RBC) [Ratio] 14.1 % Normal 11.0-15.0 [facility] Comment on above: Performed By: #### C BC #### [facility] [address] [place] [address] Dr. Beth Alanis Hematocrit (Bld) [Volume fraction] 44.1 % Normal 36.0-48.0 [facility] Comment on above: Performed By: #### C BC #### [facility] [address] [place] [address] Dr. Beth Alanis Hemoglobin (Bld) [Mass/Vol] 14.6 g/dL Normal 12.0-16.0 [facility] Comment on above: Performed By: #### C BC #### [facility] [address] [place] [address] Dr. Beth Alanis IG # 0.03 10e3/ul Normal 0.00-0.03 [facility] Comment on above: Performed By: #### C BC #### [facility] [address] [place] [address] Dr. Beth Alanis IG % 0.3 % Normal 0.0-0.5 [facility] Comment on above: Performed By: #### C BC #### [facility] [address] [place] [address] Dr. Beth Alanis LYMPH # 1.9 103/ul Normal 1.2-3.8 [facility] Comment on above: Performed By: #### C BC #### [facility] [address] [address] [address] Beth Alanis Lymphocytes/100 WBC (Bld) 17.8 % Critically low 20.5-60.0 [facility] Comment on above: Performed By: #### C BC #### [facility] [address] [place] [address] Dr. Beth Alanis MANUAL DIFF REQ NO Normal [facility] Comment on above: Performed By: #### C BC #### [facility] [address] [place] [address] Dr. Beth Alanis MCH (RBC) [Entitic mass] 30.3 pg Normal 26.7-34.0 [facility] Comment on above: Performed By: #### C BC #### [facility] [address] [place] [address] Dr. Beth Alanis MCHC (RBC) [Mass/Vol] 33.1 g/dL Normal 29.9-35.2 [facility] Comment on above: Performed By: #### C BC #### [facility] [address] [place] [address] Dr. Beth Alanis MCV (RBC) [Entitic vol] 91.5 fL Normal 81.0-99.0 [facility] Comment on above: Performed By: #### C BC #### [facility] [address] [place] [address] Dr. Beth Alanis MONO # 0.9 103/ul Critically high 0.3-0.8 [facility] Comment on above: Performed By: #### C BC #### [facility] [address] [place] [address] Dr. Beth Alanis Monocytes/100 WBC (Bld) 8.9 % Normal 1.7-12.0 [facility] Comment on above: Performed By: #### C BC #### [facility] [address] [place] [address] Dr. Beth Alanis NEUT # 7.6 103/ul Critically high 1.4-6.5 [facility] Comment on above: Performed By: #### C BC #### [facility] [address] [address] [address] Beth Alanis Neutrophils/100 WBC (Bld) 71.4 % Normal 43.0-75.0 [facility] Comment on above: Performed By: #### C BC #### [facility] [address] [place] [address] Dr. Beth Alanis Platelet mean volume (Bld) [Entitic vol] 9.7 fL Normal 9.5-13.5 [facility] Comment on above: Performed By: #### C BC #### [facility] [address] [address] [address] Beth Alanis PLT 377 103/ul Normal 150-450 [facility] Comment on above: Performed By: #### C BC #### [facility] [address] [place] [address] Dr. Beth Alanis RBC 4.82 106/ul Normal 4.20-5.40 [facility] Comment on above: Performed By: #### C BC #### [facility] [address] [place] [address] Dr. Beth Alanis WBC 10.6 103/ul Normal 4.0-11.0 [facility] Comment on above: Performed By: #### C BC #### [facility] [address] [place] [address] Dr. Beth Alanis FREE THYROXINE INDEX T7on FTI 3.20 Normal 1.30-4.50 [facility] Comment on above: Performed By: #### C MP, T7, LIPID, TSH #### [facility] [address] [place] [address] Dr. Beth Alanis T3U 33.0 % Normal 30.0-39.0 [facility] Comment on above: Performed By: #### C MP, T7, LIPID, TSH #### [facility] [address] [place] [address] Dr. Beth Alanis T4 [Mass/Vol] 9.70 ug/dL Normal 4.80-13.90 [facility] Comment on above: Performed By: #### C MP, T7, LIPID, TSH #### [facility] [address] [address] [address] Beth Alanis GLYCOHEMOGLOBIN A1Con 2021 ADA RECOMMENDATION SEE BELOW Normal [facility] Comment on above: Result Comment: ADA RECOMMENDED LIMIT 4.0 - 6.0 ADA THERAPEUTIC TARGET < 7.0 ACTION SUGGESTED > 7.0 Performed By: #### 4 [id number] #### [facility] [address] [address] [address] Beth Alanis Glucose [Mass/Vol] 114 mg/dL Normal [facility] Comment on above: Performed By: #### 4 [id number] #### [facility] [address] [address] [address] Beth Alanis HbA1c (Bld) [Mass fraction] 5.6 % Normal 4.5-6.2 [facility] Comment on above: Performed By: #### 4 [id number] #### [facility] [address] [address] [address] Beth Alanis IRONon 09-04-2021 Iron [Mass/Vol] 73.0 ug/dL Normal 50.0-170.0 [facility] Comment on above: Performed By: #### 4 [id number] #### [facility] [address] [place] [address] Dr. Beth Alanis LIPID PROFILEon 09-04-2021 CHOL-HDL RATIO NORM SEE BELOW Normal [facility] Comment on above: Result Comment: 3.3 - 4.4 LOW RISK 4.4 - 7.1 AVERAGE RISK 7.1 - 11.0 MODERATE RISK >11.0 HIGH RISK Performed By: #### 4 [id number] #### [facility] [address] [place] [address] Dr. Beth Alanis Cholesterol [Mass/Vol] 229 mg/dL Critically high <=200 [facility] Comment on above: Performed By: #### 4 [id number] #### [facility] [address] [place] [address] Dr. Beth Alanis Cholesterol in HDL [Mass/Vol] 49 mg/dL Normal 40-60 [facility] Comment on above: Performed By: #### 4 [id number] #### [facility] [address] [address] [address] Beth Alanis Cholesterol in LDL [Mass/Vol] 160.2 mg/dL Normal [facility] Comment on above: Performed By: #### 4 [id number] #### [facility] [address] [address] [address] Beth Alanis Cholesterol.total/C holesterol in HDL [Mass ratio] 4.7 {ratio} Normal [facility] Comment on above: Performed By: #### 4 [id number] #### [facility] [address] [address] [address] Beth Alanis HDL NORMAL > or = 60 mg/dl - LO W CARDIOVASCULAR RISK <40 mg/dl - HIGH CARDIOVASCULAR RISK Normal [facility] Comment on above: Performed By: #### 4 [id number] #### [facility] [address] [place] [address] Dr. Beth Alanis LDL CALC NORMAL SEE BELOW Normal [facility] Comment on above: Result Comment: <100 mg/dl OPTIMAL 100 - 129 mg/dl NEAR OR ABOVE OPTIMAL 130 - 159 mg/dl BORDERLINE HIGH 160 - 189 mg/dl HIGH >190 mg/dl VERY HIGH Performed By: #### 4 [id number] #### [facility] [address] [place] [address] Dr. Beth Alanis Triglyceride [Mass/Vol] 99 mg/dL Normal <=150 [facility] Comment on above: Performed By: #### 4 [id number] #### [facility] [address] [address] [address] Beth Alanis VLDL CALC 19.8 mg/dL Normal [facility] Comment on above: Performed By: #### 4 [id number] #### [facility] [address] [place] [address] Dr. Beth Alanis PROF 14(COMP METB)on 022 Albumin [Mass/Vol] 3.6 g/dL Normal 3.4-5.0 [facility] Comment on above: Performed By: #### 4 [id number] #### [facility] [address] [address] [address] Beth Alanis Albumin/Globulin [Mass ratio] 0.8 {ratio} Normal [facility] Comment on above: Performed By: #### 4 [id number] #### [facility] [address] [place] [address] Dr. Beth Alanis ALP [Catalytic activity/Vol] 107 U/L Normal 46-116 [facility] Comment on above: Performed By: #### 4 [id number] #### [facility] [address] [address] [address] Beth Alanis ALT [Catalytic activity/Vol] 31 U/L Normal 14-59 [facility] Comment on above: Performed By: #### 4 [id number] #### [facility] [address] [place] [address] Dr. Beth Alanis Anion gap [Moles/Vol] 14.4 mmol/L Normal [facility] Comment on above: Performed By: #### 4 [id number] #### [facility] [address] [place] [address] Dr. Beth Alanis AST [Catalytic activity/Vol] 11 U/L Critically low 15-37 [facility] Comment on above: Performed By: #### 4 [id number] #### [facility] [address] [place] [address] Dr. Beth Alanis Bilirubin [Mass/Vol] 0.4 mg/dL Normal 0.2-1.0 [facility] Comment on above: Performed By: #### 4 [id number] #### [facility] [address] [place] [address] Dr. Beth Alanis Calcium [Mass/Vol] 9.0 mg/dL Normal 8.5-10.1 [facility] Comment on above: Performed By: #### 4 [id number] #### [facility] [address] [place] [address] Dr. Beth Alanis Chloride [Moles/Vol] 103 mmol/L Normal 98-107 [facility] Comment on above: Performed By: #### 4 [id number] #### [facility] [address] [place] [address] Dr. Beth Alanis CO2 [Moles/Vol] 24.7 mmol/L Normal 21.0-32.0 [facility] Comment on above: Performed By: #### 4 [id number] #### [facility] [address] [place] [address] Dr. Beth Alanis Creatinine [Mass/Vol] 0.92 mg/dL Normal 0.55-1.02 [facility] Comment on above: Performed By: #### 4 [id number] #### [facility] [address] [place] [address] Dr. Beth Alanis EGFR-AF PORTUGUESE >60 Normal >=60 [facility] Comment on above: Performed By: #### 4 [id number] #### [facility] [address] [place] [address] Dr. Beth Alanis EGFR-NON AF PORTUGUESE >60 Normal >=60 [facility] Comment on above: Performed By: #### 4 [id number] #### [facility] [address] [place] [address] Dr. Beth Alanis Globulin (S) [Mass/Vol] 4.5 g/dL Normal [facility] Comment on above: Performed By: #### 4 [id number] #### [facility] [address] [place] [address] Dr. Beth Alanis Glucose [Mass/Vol] 100 mg/dL Normal 74-106 [facility] Comment on above: Performed By: #### 4 [id number] #### [facility] [address] [place] [address] Dr. Beth Alanis Potassium [Moles/Vol] 4.1 mmol/L Normal 3.5-5.1 [facility] Comment on above: Performed By: #### 4 [id number] #### [facility] [address] [place] [address] Dr. Beth Alanis Protein [Mass/Vol] 8.1 g/dL Normal 6.4-8.2 [facility] Comment on above: Performed By: #### 4 [id number] #### [facility] [address] [place] [address] Dr. Beth Alanis Sodium [Moles/Vol] 138 mmol/L Normal 136-145 [facility] Comment on above: Performed By: #### 4 [id number] #### [facility] [address] [place] [address] Dr. Beth Alanis Urea nitrogen [Mass/Vol] 27.0 mg/dL Critically high 7.0-18.0 [facility] Comment on above: Performed By: #### 4 [id number] #### [facility] [address] [place] [address] Dr. Beth Alanis Urea nitrogen/Creatinine [Mass ratio] 29.3 mg/mg Normal [facility] Comment on above: Performed By: #### 4 [id number] #### [facility] [address] [place] [address] Dr. Beth Alanis TSHon 09-04-2021 TSH 3.758 uIU/mL Critically high 0.358-3.740 [facility] Comment on above: Performed By: #### C MP, T7, LIPID, TSH #### [facility] [address] [place] [address] Dr. Beth Alanis TSH RANGE SEE BELOW Normal [facility] Comment on above: Result Comment: <0.3 4 UIU/ml HYPERTHYROID 0.34-5.60 UIU/ml EUTHYROID >5.60 UIU/ml HYPOTHYROID Performed By: #### C MP, T7, LIPID, TSH #### [facility] [address] [place] [address] Dr. Beth Alanis CTA HEART-CORONARY/ ARTERY B YPASS GRAFT WITH 3DPPon 04-26-2021 CTA HEART-CORONARY/ ARTERY BYPASS GRAFT WITH 3DPP [facility] Department of Radiology [address] [place] [id number] Patient Name: SHAILESH BLAKE: 1970 Sex: F Age: Race: White Pt. Location: [facility] Patient Status: D Ordered Date: 03/19/2021 8:55:00 AM Completed Date: 04/26/2021 11:45 AM Requesting Provider: MELANIA ABARCA Attending Provider: MELANIA ABARCA Report Copy To: Signs & Symptoms: R94.39 Abnormal result of other cardiovascular function study History: Order in [facility] [id number] Is patient on meds for HTN or [...] achievable Electronically signed: Corazon Carter. Transcribed by: [email or web address], User Resident: Electronically Signed by: CORAZON CARTER @ 04/30/2021 09:22 AM Normal [facility] Vital Signs Date Time Vital Sign Value Performing Clinician Facility 01-17-2025 13:18-0400 Body height 172.7 cm Shauna STOKES Work Phone: [facility] 01-17-2025 13:18-0400 Body mass index (BMI) [Ratio] 51.7 kg/m2 Shauna STOKES Work Phone: [facility] 01-17-2025 13:18-0400 Body weight 154.22 kg Shauna Pickett PA Work Phone: [facility] 01-17-2025 13:18-0400 Diastolic blood pressure 78 mm[Hg] Shauna Pickett PA Work Phone: [facility] 01-17-2025 13:18-0400 Systolic blood pressure 130 mm[Hg] Shauna Pickett PA Work Phone: [facility] 12-30-2024 14:59-0400 Body height 172.72 cm Alyssa Arreola COLOR TECHNICIAN-C Work Phone: [facility] 12-30-2024 14:59-0400 Body mass index (BMI) [Ratio] 52.7 kg/m2 Alyssa Arreola COLOR TECHNICIAN-C Work Phone: [facility] 12-30-2024 14:59-0400 Body weight 157.11 kg Alyssa Arreola COLOR TECHNICIAN-C Work Phone: [facility] 12-30-2024 14:59-0400 Diastolic blood pressure 80 mm[Hg] Alyssa Arreola COLOR TECHNICIAN-C Work Phone: [facility] 12-30-2024 14:59-0400 Heart rate 90 /min Alyssa Arreola COLOR TECHNICIAN-C Work Phone: [facility] 12-30-2024 14:59-0400 SaO2% (BldA) [Mass fraction] 94 % Alyssa Arreola COLOR TECHNICIAN-C Work Phone: [facility] 12-30-2024 14:59-0400 Systolic blood pressure 124 mm[Hg] Alyssa Arreola COLOR TECHNICIAN-C Work Phone: [facility] 09-29-2024 10:55-0400 Body height 172.72 cm Alyssa Arreola COLOR TECHNICIAN-C Work Phone: [facility] 09-29-2024 10:55-0400 Body mass index (BMI) [Ratio] 53.5 kg/m2 Alyssa Arreola COLOR TECHNICIAN-C Work Phone: [facility] 09-29-2024 10:55-0400 Body weight 159.66 kg Alyssapollo Mortensenmer COLOR TECHNICIAN-C Work Phone: [facility] 09-29-2024 10:55-0400 Diastolic blood pressure 72 mm[Hg] Alyssa Maxwell COLOR TECHNICIAN-C Work Phone: [facility] 09-29-2024 10:55-0400 Heart rate 86 /min Alyssa Maxwell COLOR TECHNICIAN-C Work Phone: [facility] 09-29-2024 10:55-0400 SaO2% (BldA) [Mass fraction] 96 % Alyssa Maxwell COLOR TECHNICIAN-C Work Phone: [facility] 09-29-2024 10:55-0400 Systolic blood pressure 118 mm[Hg] Alyssa Maxwell COLOR TECHNICIAN-C Work Phone: [facility] 09-15-2024 09:55-0400 Body mass index (BMI) [Ratio] 53.67 kg/m2 Cheyanne Schilling COLOR TECHNICIAN Work Phone: [facility] 09-15-2024 09:55-0400 Body weight 160.12 kg Cheyanne Dardenoll COLOR TECHNICIAN Work Phone: [facility] 09-15-2024 09:55-0400 Diastolic blood pressure 95 mm[Hg] Cheyanne Schilling COLOR TECHNICIAN Work Phone: [facility] 09-15-2024 09:55-0400 Heart rate 79 /min Cheyanne Schilling COLOR TECHNICIAN Work Phone: [facility] 09-15-2024 09:55-0400 Systolic blood pressure 141 mm[Hg] Cheyanne Schilling COLOR TECHNICIAN Work Phone: [facility] 07-08-2024 15:01-0400 Diastolic blood pressure 80 mm[Hg] Alyssa Maxwell COLOR TECHNICIAN-C Work Phone: [facility] 07-08-2024 15:01-0400 Heart rate 77 /min Alyssa Maxwell COLOR TECHNICIAN-C Work Phone: [facility] 07-08-2024 15:01-0400 SaO2% (BldA) [Mass fraction] 96 % Alyssa Mortensenmer COLOR TECHNICIAN-C Work Phone: [facility] 07-08-2024 15:01-0400 Systolic blood pressure 120 mm[Hg] Alyssa Mortensenmer COLOR TECHNICIAN-C Work Phone: [facility] 06-16-2024 09:22-0500 Body height 172.72 cm Alyssa Mortensenmer COLOR TECHNICIAN-C Work Phone: [facility] 06-16-2024 09:22-0500 Body mass index (BMI) [Ratio] 54.3 kg/m2 Alyssa Mortensenmer COLOR TECHNICIAN-C Work Phone: [facility] 06-16-2024 09:22-0500 Body weight 162.1 kg Alyssa Mortensenmer COLOR TECHNICIAN-C Work Phone: [facility] 06-16-2024 09:22-0500 Heart rate 97 /min Alyssa Arreola COLOR TECHNICIAN-C Work Phone: [facility] 06-16-2024 09:22-0500 SaO2% (BldA) [Mass fraction] 96 % Alyssa Arreola COLOR TECHNICIAN-C Work Phone: [facility] 06-03-2024 13:19-0500 Body mass index (BMI) [Ratio] 55.35 kg/m2 Cheyanne Schilling COLOR TECHNICIAN Work Phone: [facility] 06-03-2024 13:19-0500 Body weight 165.11 kg Cheyanne Schilling COLOR TECHNICIAN Work Phone: [facility] 06-03-2024 13:19-0500 Diastolic blood pressure 80 mm[Hg] Cheyanne Schilling COLOR TECHNICIAN Work Phone: [facility] 06-03-2024 13:19-0500 Heart rate 95 /min Cheyanne Schilling COLOR TECHNICIAN Work Phone: [facility] 06-03-2024 13:19-0500 SaO2% (BldA) [Mass fraction] 99 % Cheyanne Schilling COLOR TECHNICIAN Work Phone: [facility] 06-03-2024 13:19-0500 Systolic blood pressure 134 mm[Hg] Cheyanne Schilling COLOR TECHNICIAN Work Phone: [facility] 05-05-2024 11:09-0500 Body height 172.7 cm Cheyanne Schilling COLOR TECHNICIAN Work Phone: [facility] 05-05-2024 11:09-0500 Body mass index (BMI) [Ratio] 53.52 kg/m2 Cheyanne Schilling COLOR TECHNICIAN Work Phone: [facility] 05-05-2024 11:09-0500 Body weight 159.67 kg Cheyanne Schilling COLOR TECHNICIAN Work Phone: [facility] 05-05-2024 11:09-0500 Diastolic blood pressure 88 mm[Hg] Cheyanne Schilling COLOR TECHNICIAN Work Phone: [facility] 05-05-2024 11:09-0500 Heart rate 104 /min Cheyanne Schilling COLOR TECHNICIAN Work Phone: [facility] 05-05-2024 11:09-0500 SaO2% (BldA) [Mass fraction] 96 % Cheyanne Schilling COLOR TECHNICIAN Work Phone: [facility] 05-05-2024 11:09-0500 Systolic blood pressure 144 mm[Hg] Cheyanne Schilling COLOR TECHNICIAN Work Phone: [facility] 03-10-2024 12:51-0500 Body height 172.7 cm Tank Anisha DO Work Phone: [facility] 03-10-2024 12:51-0500 Body mass index (BMI) [Ratio] 53.76 kg/m2 Tank Anisha DO Work Phone: [facility] 03-10-2024 12:51-0500 Body weight 160.39 kg Tank Anihsa DO Work Phone: [facility] 03-10-2024 12:51-0500 Diastolic blood pressure 88 mm[Hg] Tank Anisha DO Work Phone: [facility] 03-10-2024 12:51-0500 Heart rate 81 /min Tank Anisha DO Work Phone: [facility] 03-10-2024 12:51-0500 SaO2% (BldA) [Mass fraction] 96 % Tank Anisha DO Work Phone: [facility] 03-10-2024 12:51-0500 Systolic blood pressure 132 mm[Hg] Tank Anisha DO Work Phone: [facility] 03-04-2024 15:08-0500 Body height 172.7 cm Cheyanne Schilling COLOR TECHNICIAN Work Phone: [facility] 03-04-2024 15:08-0500 Body mass index (BMI) [Ratio] 53.98 kg/m2 Cheyanne Schilling COLOR TECHNICIAN Work Phone: [facility] 03-04-2024 15:08-0500 Body weight 161.03 kg Cheyanne Schilling COLOR TECHNICIAN Work Phone: [facility] 03-04-2024 15:08-0500 Diastolic blood pressure 86 mm[Hg] Cheyanne Schilling COLOR TECHNICIAN Work Phone: [facility] 03-04-2024 15:08-0500 Heart rate 103 /min Cheyanne Schilling COLOR TECHNICIAN Work Phone: [facility] 03-04-2024 15:08-0500 SaO2% (BldA) [Mass fraction] 98 % Cheyanne Schilling COLOR TECHNICIAN Work Phone: [facility] 03-04-2024 15:08-0500 Systolic blood pressure 132 mm[Hg] Cheyanne Schilling COLOR TECHNICIAN Work Phone: [facility] 02-12-2024 08:56-0400 Blood Pressure Location KAYY MIRAMONTES [facility] 02-12-2024 08:56-0400 Body temperature 98.6 [degF] KAYY MIRAMONTES [facility] 02-12-2024 08:56-0400 Diastolic blood pressure 89 mm[Hg] KAYY MIRAMONTES [facility] 02-12-2024 08:56-0400 Heart rate 75 /min KAYY MIRAMONTES [facility] 02-12-2024 08:56-0400 Respiratory rate 16 /min KAYY MIRAMONTES [facility] 02-12-2024 08:56-0400 Systolic blood pressure 133 mm[Hg] KAYY MIRAMONTES [facility] 02-11-2024 10:34-0400 Body height 172.7 cm Cheyanne Schilling COLOR TECHNICIAN Work Phone: [facility] 02-11-2024 10:34-0400 Body mass index (BMI) [Ratio] 53.28 kg/m2 Cheyanne Schilling COLOR TECHNICIAN Work Phone: [facility] 02-11-2024 10:34-0400 Body weight 158.94 kg Cheyanne Schilling COLOR TECHNICIAN Work Phone: [facility] 02-11-2024 10:34-0400 Diastolic blood pressure 80 mm[Hg] Cheyanne Schilling COLOR TECHNICIAN Work Phone: [facility] 02-11-2024 10:34-0400 Heart rate 76 /min Cheyanne Schilling COLOR TECHNICIAN Work Phone: [facility] 02-11-2024 10:34-0400 SaO2% (BldA) [Mass fraction] 98 % Cheyanne Schilling COLOR TECHNICIAN Work Phone: [facility] 02-11-2024 10:34-0400 Systolic blood pressure 138 mm[Hg] Cheyanne Schilling COLOR TECHNICIAN Work Phone: [facility] 01-15-2024 15:47-0400 Diastolic blood pressure 60 mm[Hg] COLOR TECHNICIAN-C Alyssa Arreola Work Phone: [facility] 01-15-2024 15:47-0400 Heart rate 82 /min COLOR TECHNICIAN-C Alyssa Maxwell Work Phone: [facility] 01-15-2024 15:47-0400 SaO2% (BldA) [Mass fraction] 98 % COLOR TECHNICIAN-C Alyssa Maxwell Work Phone: [facility] 01-15-2024 15:47-0400 Systolic blood pressure 102 mm[Hg] COLOR TECHNICIAN-C Alyssa Maxwell Work Phone: [facility] 01-02-2024 10:32-0400 Body weight 159.21 kg COLOR TECHNICIAN-C Alyssa Maxwell Work Phone: [facility] 01-02-2024 10:32-0400 Diastolic blood pressure 80 mm[Hg] COLOR TECHNICIAN-C Alyssa Maxwell Work Phone: [facility] 01-02-2024 10:32-0400 Heart rate 81 /min COLOR TECHNICIAN-C Alyssa Maxwell Work Phone: [facility] 01-02-2024 10:32-0400 SaO2% (BldA) [Mass fraction] 98 % COLOR TECHNICIAN-C Alyssa Maxwell Work Phone: [facility] 01-02-2024 10:32-0400 Systolic blood pressure 130 mm[Hg] COLOR TECHNICIAN-C Alyssa Maxwell Work Phone: [facility] 12-11-2023 10:35-0400 Body weight 161.93 kg COLOR TECHNICIAN-C Alyssa Maxwell Work Phone: [facility] 12-11-2023 10:35-0400 Diastolic blood pressure 60 mm[Hg] COLOR TECHNICIAN-C Alyssa Maxwell Work Phone: [facility] 12-11-2023 10:35-0400 Heart rate 72 /min COLOR TECHNICIAN-C Alyssa Maxwell Work Phone: [facility] 12-11-2023 10:35-0400 SaO2% (BldA) [Mass fraction] 97 % COLOR TECHNICIAN-C Alyssa Maxwell Work Phone: [facility] 12-11-2023 10:35-0400 Systolic blood pressure 102 mm[Hg] COLOR TECHNICIAN-C Alyssa Maxwell Work Phone: [facility] 09-04-2023 09:23-0400 Body weight 157.16 kg COLOR TECHNICIAN-C Alyssa Mortensenmer Work Phone: [facility] 09-04-2023 09:23-0400 Diastolic blood pressure 70 mm[Hg] COLOR TECHNICIAN-C Alyssa Maxwell Work Phone: [facility] 09-04-2023 09:23-0400 Heart rate 74 /min COLOR TECHNICIAN-C Alyssa Maxwell Work Phone: [facility] 09-04-2023 09:23-0400 SaO2% (BldA) [Mass fraction] 98 % COLOR TECHNICIAN-C Alyssa Mortensenmer Work Phone: [facility] 09-04-2023 09:23-0400 Systolic blood pressure 102 mm[Hg] COLOR TECHNICIAN-C Alyssapollo Mortensenmer Work Phone: [facility] 07-29-2023 15:08-0400 Body temperature 98.42 [degF] KAYY THERESA [facility] 07-29-2023 15:08-0400 Diastolic blood pressure 88 mm[Hg] KAYY THERESA [facility] 07-29-2023 15:08-0400 Heart rate 71 /min KAYY THERESA [facility] 07-29-2023 15:08-0400 Respiratory rate 16 /min KAYY THERESA [facility] 07-29-2023 15:08-0400 Systolic blood pressure 138 mm[Hg] KAYY THERESA [facility] 06-04-2023 11:48-0500 Diastolic blood pressure 71 mm[Hg] COLOR TECHNICIAN-C Alyssa Maxwell Work Phone: [facility] 06-04-2023 11:48-0500 Heart rate 76 /min COLOR TECHNICIAN-C Alyssa Maxwell Work Phone: [facility] 06-04-2023 11:48-0500 Respiratory rate 16 /min COLOR TECHNICIAN-C Alyssa Maxwell Work Phone: [facility] 06-04-2023 11:48-0500 SaO2% (BldA) [Mass fraction] 95 % COLOR TECHNICIAN-C Alyssa Maxwell Work Phone: [facility] 06-04-2023 11:48-0500 Systolic blood pressure 126 mm[Hg] COLOR TECHNICIAN-C Alyssa Maxwell Work Phone: [facility] 06-04-2023 09:51-0500 Body height 172.72 cm COLOR TECHNICIAN-C Alyssa Maxwell Work Phone: [facility] 06-04-2023 09:51-0500 Body weight 146.51 kg COLOR TECHNICIAN-C Alyssa Maxwell Work Phone: [facility] 05-19-2023 15:45-0500 Body height 168.91 cm Asif Cox Other [facility] 05-19-2023 15:45-0500 Body mass index (BMI) [Ratio] 54.69 kg/m2 Asif Cox Other [facility] [employer] Other 05-19-2023 15:45-0500 Body weight 156.04 kg Asif Cox Other [facility] [employer] Other 05-19-2023 15:45-0500 Body weight 156.03 kg COLOR TECHNICIAN-C Alyssa Maxwell Work Phone: [facility] 05-19-2023 15:45-0500 SaO2% (BldA) [Mass fraction] 97 % Asif Cox Other [employer] Other 04-09-2023 10:30-0500 Body height 168.91 cm Destini Kilgore Other [employer] Other 04-09-2023 10:30-0500 Body mass index (BMI) [Ratio] 54.3 kg/m2 Destini Kilgore Other [employer] Other 04-09-2023 10:30-0500 Body weight 154.95 kg Destini Kilgore Other [employer] Other 04-09-2023 10:30-0500 Diastolic blood pressure 87 mm[Hg] Destini Kilgore Other [employer] Other 04-09-2023 10:30-0500 SaO2% (BldA) [Mass fraction] 97 % Destini Kilgore Other [employer] Other 04-09-2023 10:30-0500 Systolic blood pressure 123 mm[Hg] Destini Kilgore Other [employer] Other 01-23-2023 16:00-0400 Body height 168.91 cm Asif Cox Other [employer] Other 01-23-2023 16:00-0400 Body mass index (BMI) [Ratio] 53.25 kg/m2 Asif Cox Other [employer] Other 01-23-2023 16:00-0400 Body weight 151.96 kg Asif Cox Other [employer] Other 01-23-2023 16:00-0400 Diastolic blood pressure 90 mm[Hg] Asif Cox Other [employer] Other 01-23-2023 16:00-0400 SaO2% (BldA) [Mass fraction] 97 % Asif Garciaky Other [employer] Other 01-23-2023 16:00-0400 Systolic blood pressure 140 mm[Hg] Asifjohn Cox Other [employer] Other 01-09-2023 10:30-0400 Body height 168.91 cm Destini Kilgore Other [employer] Other 01-09-2023 10:30-0400 Body mass index (BMI) [Ratio] 53.25 kg/m2 Destini Kilgore Other [employer] Other 01-09-2023 10:30-0400 Body weight 151.96 kg Destini Kilgore Other [employer] Other 01-09-2023 10:30-0400 Diastolic blood pressure 86 mm[Hg] Destini Kilgore Other [employer] Other 01-09-2023 10:30-0400 Systolic blood pressure 124 mm[Hg] Destini Kilgore Other [employer] Other 11-07-2022 13:15-0400 Body height 168.91 cm Asif Jackie Other [employer] Other 11-07-2022 13:15-0400 Body mass index (BMI) [Ratio] 55.32 kg/m2 Asif Cox Other [employer] Other 11-07-2022 13:15-0400 Body weight 157.85 kg Asif Cox Other [employer] Other 11-07-2022 13:15-0400 SaO2% (BldA) [Mass fraction] 95 % Asif Cox Other [employer] Other 10-31-2022 16:00-0400 Body height 168.91 cm Asif Cox Other [employer] Other 10-31-2022 16:00-0400 Body mass index (BMI) [Ratio] 54.62 kg/m2 Asif Cox Other [employer] Other 10-31-2022 16:00-0400 Body weight 155.86 kg Asif Cox Other [employer] Other 10-31-2022 16:00-0400 Diastolic blood pressure 84 mm[Hg] Asif Cox Other [employer] Other 10-31-2022 16:00-0400 SaO2% (BldA) [Mass fraction] 97 % Asif Cox Other [employer] Other 10-31-2022 16:00-0400 Systolic blood pressure 126 mm[Hg] Asif Cox Other [employer] Other 08-07-2022 17:30-0400 Body height 168.91 cm Asif Cox Other [employer] Other 08-07-2022 17:30-0400 Body mass index (BMI) [Ratio] 54.53 kg/m2 Asif Cox Other [employer] Other 08-07-2022 17:30-0400 Body weight 155.58 kg Asif Cox Other [employer] Other 08-07-2022 17:30-0400 Diastolic blood pressure 96 mm[Hg] Asif Cox Other [employer] Other 08-07-2022 17:30-0400 SaO2% (BldA) [Mass fraction] 99 % Asif Cox Other [facility] [employer] Other 08-07-2022 17:30-0400 Systolic blood pressure 142 mm[Hg] Asfi Cox Other [facility] [employer] Other 07-24-2022 10:04-0400 Diastolic blood pressure 76 mm[Hg] COLOR TECHNICIAN-C Alyssa Maxwell Work Phone: [facility] 07-24-2022 10:04-0400 Heart rate 74 /min COLOR TECHNICIAN-C Alyssa Maxwell Work Phone: [facility] 07-24-2022 10:04-0400 Respiratory rate 18 /min COLOR TECHNICIAN-C Alyssa Maxwell Work Phone: [facility] 07-24-2022 10:04-0400 SaO2% (BldA) [Mass fraction] 96 % COLOR TECHNICIAN-C Alyssa Maxwell Work Phone: [facility] 07-24-2022 10:04-0400 Systolic blood pressure 117 mm[Hg] COLOR TECHNICIAN-C Alyssa Maxwell Work Phone: [facility] 07-24-2022 09:23-0400 Inhaled oxygen flow rate 3 L/min COLOR TECHNICIAN-C Alyssa Maxwell Work Phone: [facility] 07-24-2022 08:46-0400 Body height 172.72 cm COLOR TECHNICIAN-C Alyssa Maxwell Work Phone: [facility] 07-24-2022 08:46-0400 Body weight 136.07 kg COLOR TECHNICIAN-C Alyssa Arreola Work Phone: [facility] 07-08-2022 15:45-0400 Body height 168.91 cm Asif Garciaky Other [employer] Other 07-08-2022 15:45-0400 Body mass index (BMI) [Ratio] 56.59 kg/m2 Asifjohn Cox Other [employer] Other 07-08-2022 15:45-0400 Body weight 161.48 kg Asif Cox Other [employer] Other 07-08-2022 15:45-0400 Diastolic blood pressure 80 mm[Hg] Asif Cox Other [employer] Other 07-08-2022 15:45-0400 SaO2% (BldA) [Mass fraction] 97 % Asif Cox Other [employer] Other 07-08-2022 15:45-0400 Systolic blood pressure 120 mm[Hg] Asif Cox Other [employer] Other 05-17-2022 10:15-0500 Body height 168.91 cm Asif Cox Other [employer] Other 05-17-2022 10:15-0500 Body mass index (BMI) [Ratio] 55.93 kg/m2 Asif Cox Other [employer] Other 05-17-2022 10:15-0500 Body weight 159.58 kg Asif Cox Other [employer] Other 05-17-2022 10:15-0500 Diastolic blood pressure 86 mm[Hg] Asif Cox Other [employer] Other 05-17-2022 10:15-0500 SaO2% (BldA) [Mass fraction] 96 % Asif Cox Other [employer] Other 05-17-2022 10:15-0500 Systolic blood pressure 132 mm[Hg] Asif Jackie Other [employer] Other 04-05-2022 13:15-0500 Body height 168.91 cm Asif Cox Other [employer] Other 04-05-2022 13:15-0500 Body mass index (BMI) [Ratio] 55.64 kg/m2 Asif Cox Other [employer] Other 04-05-2022 13:15-0500 Body weight 158.76 kg Asif Cox Other [employer] Other 04-05-2022 13:15-0500 Diastolic blood pressure 80 mm[Hg] Asif Cox Other [employer] Other 04-05-2022 13:15-0500 SaO2% (BldA) [Mass fraction] 98 % Asif Cox Other [employer] Other 04-05-2022 13:15-0500 Systolic blood pressure 124 mm[Hg] Asif Cox Other [employer] Other 02-07-2022 14:45-0400 Body height 168.91 cm Asif Cox Other [employer] Other 02-07-2022 14:45-0400 Body mass index (BMI) [Ratio] 55.48 kg/m2 Asif Cox Other [employer] Other 02-07-2022 14:45-0400 Body weight 158.31 kg Asif Cox Other [employer] Other 02-07-2022 14:45-0400 Diastolic blood pressure 80 mm[Hg] Asif Jackie Other [employer] Other 02-07-2022 14:45-0400 SaO2% (BldA) [Mass fraction] 94 % Asif Jackie Other [employer] Other 02-07-2022 14:45-0400 Systolic blood pressure 126 mm[Hg] Asif Jackie Other [employer] Other 01-18-2022 13:15-0400 Body height 168.91 cm Asif Cox Other [employer] Other 01-18-2022 13:15-0400 Body mass index (BMI) [Ratio] 54.84 kg/m2 Asif Cox Other [employer] Other 01-18-2022 13:15-0400 Body weight 156.49 kg Asif Cox Other [employer] Other 01-18-2022 13:15-0400 Diastolic blood pressure 98 mm[Hg] Asif Jackie Other [employer] Other 01-18-2022 13:15-0400 SaO2% (BldA) [Mass fraction] 97 % Asif Cox Other [employer] Other 01-18-2022 13:15-0400 Systolic blood pressure 132 mm[Hg] Asif Cox Other [employer] Other 12-17-2021 11:45-0400 Body height 168.91 cm Asif Cox Other [employer] Other 12-17-2021 11:45-0400 Body mass index (BMI) [Ratio] 54.84 kg/m2 Asif Cox Other [employer] Other 12-17-2021 11:45-0400 Body weight 156.49 kg Asif Cox Other [employer] Other 12-17-2021 11:45-0400 Diastolic blood pressure 80 mm[Hg] Asif Cox Other [employer] Other 12-17-2021 11:45-0400 SaO2% (BldA) [Mass fraction] 97 % Asif Cox Other [employer] Other 12-17-2021 11:45-0400 Systolic blood pressure 110 mm[Hg] Asif Cox Other [employer] Other 10-15-2021 10:30-0400 Body height 168.91 cm Asif Cox Other [employer] Other 10-15-2021 10:30-0400 Body mass index (BMI) [Ratio] 54.3 kg/m2 Asif Cox Other [employer] Other 10-15-2021 10:30-0400 Body weight 154.95 kg Asif Cox Other [employer] Other 10-15-2021 10:30-0400 Diastolic blood pressure 70 mm[Hg] Asif Cox Other [employer] Other 10-15-2021 10:30-0400 SaO2% (BldA) [Mass fraction] 98 % Asif Cox Other [employer] Other 10-15-2021 10:30-0400 Systolic blood pressure 110 mm[Hg] Asif Cox Other [employer] Other 09-13-2021 10:45-0400 Body height 168.91 cm Destini Kilgore Other [employer] Other 09-13-2021 10:45-0400 Body mass index (BMI) [Ratio] 54.21 kg/m2 Destini Kilgore Other [employer] Other 09-13-2021 10:45-0400 Body weight 154.68 kg Destini Kilgore Other [employer] Other 09-13-2021 10:45-0400 Diastolic blood pressure 74 mm[Hg] Destini Kilgore Other [employer] Other 09-13-2021 10:45-0400 Systolic blood pressure 124 mm[Hg] Destini Kilgore Other [employer] Other 08-02-2021 15:30-0400 Body height 168.91 cm Asif Cox Other [employer] Other 08-02-2021 15:30-0400 Body mass index (BMI) [Ratio] 52.71 kg/m2 Asif Cox Other [employer] Other 08-02-2021 15:30-0400 Body weight 150.41 kg Asif Cox Other [employer] Other 08-02-2021 15:30-0400 Diastolic blood pressure 82 mm[Hg] Asif Cox Other [employer] Other 08-02-2021 15:30-0400 SaO2% (BldA) [Mass fraction] 97 % Asif Cox Other [employer] Other 08-02-2021 15:30-0400 Systolic blood pressure 134 mm[Hg] Asif Cox Other [employer] Other 07-09-2021 16:00-0400 Body height 168.91 cm Asif Cox Other [employer] Other 07-09-2021 16:00-0400 Diastolic blood pressure 80 mm[Hg] Asif Cox Other [employer] Other 07-09-2021 16:00-0400 SaO2% (BldA) [Mass fraction] 99 % Asif Cox Other [employer] Other 07-09-2021 16:00-0400 Systolic blood pressure 130 mm[Hg] Asif Cox Other [employer] Other 07-04-2021 15:30-0500 Body height 168.91 cm Mellissa Strange Other [employer] Other 07-04-2021 15:30-0500 Body mass index (BMI) [Ratio] 52.78 kg/m2 Mellissa Strange Other [employer] Other 07-04-2021 15:30-0500 Body weight 150.6 kg Mellissa Strange Other [employer] Other 07-04-2021 15:30-0500 Diastolic blood pressure 96 mm[Hg] Mellissa Strange Other [employer] Other 07-04-2021 15:30-0500 Systolic blood pressure 137 mm[Hg] Mellissa Strange Other [employer] Other 06-07-2021 11:15-0500 Body height 168.91 cm Destini Kilgore Other [employer] Other 06-07-2021 11:15-0500 Body mass index (BMI) [Ratio] 52.48 kg/m2 Destini Kilgore Other [employer] Other 06-07-2021 11:15-0500 Body weight 149.73 kg Destini Iklgore Other [employer] Other 06-07-2021 11:15-0500 Respiratory rate 18 /min Destini Kilgore Other [employer] Other 04-30-2021 15:00-0500 Body height 168.91 cm Asif Cox Other [employer] Other 04-30-2021 15:00-0500 Body mass index (BMI) [Ratio] 51.98 kg/m2 Asif Cox Other [employer] Other 01-03-2022 15:00-0500 Body weight 148.33 kg Asif Cox Other [employer] Other 04-30-2021 15:00-0500 Diastolic blood pressure 74 mm[Hg] Asif Jackie Other [employer] Other 04-30-2021 15:00-0500 Systolic blood pressure 116 mm[Hg] Asif Jackie Other [employer] Other 04-05-2021 17:00-0500 Body height 168.91 cm Asif Cox Other [employer] Other 04-05-2021 17:00-0500 Body mass index (BMI) [Ratio] 50.93 kg/m2 Asifjohn Cox Other [employer] Other 04-05-2021 17:00-0500 Body weight 145.33 kg Asif Cox Other [employer] Other 03-19-2021 12:15-0500 Body height 168.91 cm Asif Cox Other [employer] Other 03-19-2021 12:15-0500 Body mass index (BMI) [Ratio] 49.92 kg/m2 Asif Cox Other [employer] Other 03-19-2021 12:15-0500 Body weight 142.43 kg Asif Jackie Other [employer] Other 03-19-2021 12:15-0500 Diastolic blood pressure 80 mm[Hg] Asif Jackie Other [employer] Other 03-19-2021 12:15-0500 Systolic blood pressure 120 mm[Hg] Asif Cox Other [employer] Other 02-26-2021 14:30-0400 Body height 168.91 cm Asif Cox Other [employer] Other 02-26-2021 14:30-0400 Body mass index (BMI) [Ratio] 50.84 kg/m2 Asif oCx Other [employer] Other 02-26-2021 14:30-0400 Body weight 145.06 kg Asif Cox Other [employer] Other 02-26-2021 14:30-0400 Diastolic blood pressure 70 mm[Hg] Asif Cox Other [employer] Other 02-26-2021 14:30-0400 SaO2% (BldA) [Mass fraction] 98 % Asif Cox Other [employer] Other 02-26-2021 14:30-0400 Systolic blood pressure 118 mm[Hg] Asif Cox Other [employer] Other Encounters Encounter Date Encounter Type Care Provider Facility Start: 01-20-2025 End: 01-20-2025 ambulatory Alyssa Arreola COLOR TECHNICIAN-Jess Work Phone: [facility] Work Phone: Start: 01-20-2025 End: 01-20-2025 Patient encounter procedure Destini Kilgore COLOR TECHNICIAN -[facility] Work Phone: Start: 01-17-2025 End: 01-17-2025 Bamboo flowsheet Shauna STOKES Work Phone: [facility] Start: 01-17-2025 End: 01-24-2025 Bamboo flowsheet Shauna STOKES Work Phone: [facility] Start: 01-17-2025 End: 01-24-2025 Clinisync Result Encounter Shauna STOKES Work Phone: [facility] External Department Unsolicited Start: 01-17-2025 End: 01-17-2025 Patient encounter procedure Shauna STOKES Work Phone: [facility] Start: 01-17-2025 End: 01-17-2025 Periodic preventive med est patient 40-64yrs Shauna STOKES Work Phone: [facility] Comment on above: Well woman exam with routine gynecological exam; Encounter for screening mammogram for malignant neoplasm of breast; Osteoporosis, post-menopausal ; Asymptomatic menopausal state; Symptoms, such as flushing, sleeplessness, headache, lack of concentration, associated with the menopause Start: 01-17-2025 End: 01-17-2025 ambulatory SHAUNA PICKETT Not Available Start: 12-30-2024 End: 12-30-2024 ambulatory Alyssa Arreola COLOR TECHNICIAN-C Work Phone: [facility] Work Phone: Start: 12-30-2024 End: 12-30-2024 Patient encounter procedure Asif Cox MD -[facility] Work Phone: Start: 2024 ambulatory Alexey Maki Facility:[facility] Start: 2024 Registered Recurring Josselin DAVILA [employer] Start: 12-02-2024 Registered Recurring Josselin DAVILA [employer] Start: 09-29-2024 End: 09-29-2024 ambulatory Alyssa Arreola COLOR TECHNICIAN-C Work Phone: [facility] Work Phone: Start: 09-29-2024 End: 09-29-2024 Patient encounter procedure Alyssa Arreola COLOR TECHNICIAN-C Work Phone: [facility] Work Phone: Start: 09-17-2024 End: 09-17-2024 ambulatory JOSE ELIAS MIRAMONTES Facility:[facility] Start: 09-16-2024 Registered Recurring Alyssa solitario COLOR TECHNICIAN-C Work Phone: [facility] Start: 09-15-2024 End: 09-15-2024 Office outpatient visit 25 minutes Cheyanne Shakir COLOR TECHNICIAN Work Phone: [facility] Comment on above: Migraine without aur a and without status migrainosus, not intractable (CMS/HCC) (Primary Dx); CARLOS (obstructive sleep apnea); Lumbar radiculopathy; Degeneration of intervertebral disc of lumbar region, unspecified whether pain present; Neck pain; Polypharmacy; Seizure (CMS/HCC) Start: 09-15-2024 End: 09-15-2024 ambulatory CHEYANNE SCHILLING Not Available Start: 08-12-2024 Non-patient / Non-visit Alyssa Arreola COLOR TECHNICIAN-C Work Phone: [facility] Work Phone: Start: 08-04-2024 Non-patient / Non-visit Alyssa Arreola COLOR TECHNICIAN-C Work Phone: [facility] Work Phone: Start: 07-08-2024 End: 07-08-2024 ambulatory Alyssa Arreola COLOR TECHNICIAN-C Work Phone: [facility] Work Phone: Start: 07-08-2024 End: 07-08-2024 Patient encounter procedure Alyssa Arreola COLOR TECHNICIAN-C Work Phone: [facility] Work Phone: Start: 06-16-2024 End: 06-16-2024 ambulatory Alyssa Arreola COLOR TECHNICIAN-C Work Phone: [facility] Work Phone: Start: 06-16-2024 End: 06-16-2024 Patient encounter procedure Alyssa Maxwell COLOR TECHNICIAN-C Work Phone: [facility] Work Phone: Start: 06-03-2024 End: 06-03-2024 Bamboo flowsheet Cheyanne Schilling COLOR TECHNICIAN Work Phone: [facility] Start: 06-03-2024 End: 06-03-2024 Bamboo flowsheet Cheyanne Schilling COLOR TECHNICIAN Work Phone: [facility] Start: 06-03-2024 End: 06-03-2024 Office outpatient visit 15 minutes Cheyanne Schilling COLOR TECHNICIAN Work Phone: [facility] Comment on above: Migraine without aur a and without status migrainosus, not intractable (CMS/HCC) (Primary Dx); CARLOS (obstructive sleep apnea); Lumbar radiculopathy; Degeneration of intervertebral disc of lumbar region, unspecified whether pain present; Neck pain; Polypharmacy; Seizure (CMS/HCC) Start: 06-03-2024 End: 06-03-2024 ambulatory CHEYANNE SCHILLING Not Available Start: 05-26-2024 End: 05-26-2024 Clinisync Result Encounter Cheyanne Schilling COLOR TECHNICIAN Work Phone: [facility] External Department Unsolicited Start: 05-26-2024 End: 05-26-2024 Clinisync Result Encounter Cheyanne Schilling COLOR TECHNICIAN Work Phone: [facility] External Department Unsolicited Start: 05-05-2024 End: 05-05-2024 Bamboo flowsheet Cheyanne Schilling COLOR TECHNICIAN Work Phone: [facility] Start: 05-05-2024 End: 05-05-2024 Bamboo flowsheet Cheyanne Schilling COLOR TECHNICIAN Work Phone: [facility] Start: 05-05-2024 End: 05-05-2024 Office outpatient visit 25 minutes Cheyanne Schilling COLOR TECHNICIAN Work Phone: [facility] Comment on above: Migraine without aur a and without status migrainosus, not intractable (CMS/HCC) (Primary Dx); CARLOS (obstructive sleep apnea); Lumbar radiculopathy; Degeneration of intervertebral disc of lumbar region, unspecified whether pain present; Paresthesias; Polypharmacy; Seizure (CMS/HCC) Start: 05-05-2024 End: 05-05-2024 ambulatory CHEYANNE SCHILLING Not Available Start: 04-27-2024 Registered Recurring Alyssa solitario COLOR TECHNICIAN-C Work Phone: [facility] Start: 03-10-2024 End: 03-10-2024 Bamboo flowsheet [...] Office outpatient visit 15 minutes Cheyanne Schilling COLOR TECHNICIAN Work Phone: [facility] [facility] Comment on above: Migraine without aur a and without status migrainosus, not intractable (CMS/HCC) (Primary Dx); CARLOS (obstructive sleep apnea); Lumbar radiculopathy; Paresthesias; Polypharmacy; Seizure (CMS/HCC) Start: 03-04-2024 End: 03-04-2024 ambulatory CHEYANNE SCHILLING Not Available Start: 03-04-2024 End: 03-04-2024 Bamboo flowsheet Cheyanne Schilling COLOR TECHNICIAN Work Phone: [facility] Start: 03-04-2024 End: 03-04-2024 Bamboo flowsheet Cheyanne Schilling COLOR TECHNICIAN Work Phone: [facility] Start: 02-25-2024 End: 02-25-2024 Patient encounter procedure COLOR TECHNICIAN-C Alyssa Arreola Work Phone: [facility] [place] Work Phone: Start: 02-25-2024 End: 02-25-2024 ambulatory COLOR TECHNICIAN-C Alyssa Lesly Arreola Work Phone: [facility] Work Phone: Start: 02-19-2024 End: 02-19-2024 [...] JEREZ Not Available Start: 02-16-2024 Registered Recurring COLOR TECHNICIAN-C Alanis Azar Work Phone: [facility] Start: 02-12-2024 End: 02-12-2024 Lab Drop off AKYY MIRAMONTES [facility] Start: 02-12-2024 End: 02-12-2024 ambulatory PA-C KAYY MIRAMONTES Facility:[facility] Start: 02-12-2024 End: 02-12-2024 Patient encounter procedure [facility] Start: 02-11-2024 End: 02-11-2024 Bamboo flowsheet Cheyanne Schilling COLOR TECHNICIAN Work Phone: [facility] Start: 02-11-2024 End: 02-11-2024 Bamboo flowsheet Cheyanne Schilling COLOR TECHNICIAN [facility] Phone[facility] Start: 02-11-2024 End: 02-17-2024 Telephone encounter Cheyanne Schilling COLOR TECHNICIAN Work Phone: [facility] Start: 02-11-2024 End: 02-11-2024 Office outpatient visit 25 minutes Cheyanne Schilling COLOR TECHNICIAN Work Phone: [facility] Comment on above: Migraine without aur a and without status migrainosus, not intractable (CMS/HCC) (Primary Dx); CARLOS (obstructive sleep apnea); Carpal tunnel syndrome, bilateral; Polypharmacy; Seizure (CMS/HCC) Start: 02-11-2024 End: 02-11-2024 ambulatory CHEYANNE SCHILLING Not Available Start: 01-15-2024 End: 01-15-2024 ambulatory COLOR TECHNICIAN-C Alyssa Lesly Maxwell Work Phone: [facility] Work Phone: Start: 01-15-2024 End: 01-15-2024 Patient encounter procedure COLOR TECHNICIAN-C Alyssa Maxwell Work Phone: [facility] Work Phone: Start: 01-06-2024 Registered Recurring COLOR TECHNICIAN-C Alanis la Maxwell Work Phone: [facility] Start: 01-02-2024 End: 01-02-2024 ambulatory COLOR TECHNICIAN-C Alyssa Lesly Maxwell Work Phone: [facility] Work Phone: Start: 01-02-2024 End: 01-02-2024 Patient encounter procedure COLOR TECHNICIAN-C Alyssa Maxwell Work Phone: [facility] [place] Work Phone: Start: 12-16-2023 Registered Recurring COLOR TECHNICIAN-C Alanis la Maxwell Work Phone: [facility] [employer] Start: 12-11-2023 End: 12-11-2023 ambulatory COLOR TECHNICIAN-C Alyssa Lesly Maxwell Work Phone: [facility] Work Phone: Start: 12-11-2023 End: 12-11-2023 Patient encounter procedure COLOR TECHNICIAN-C Alyssa Maxwell Work Phone: [facility] Work Phone: Start: 10-15-2023 Registered Recurring COLOR TECHNICIAN-C Alanis la Maxwell Work Phone: [facility] Start: 09-04-2023 End: 09-04-2023 ambulatory COLOR TECHNICIAN-C Alyssa Lesly Maxwell Work Phone: [facility] Work Phone: Start: 09-04-2023 End: 09-04-2023 Patient encounter procedure COLOR TECHNICIAN-C Alyssa Maxwell Work Phone: [facility] Work Phone: Start: 07-29-2023 End: 07-29-2023 ambulatory PA-C KAYY MIRAMONTES Facility:[facility] Start: 07-29-2023 End: 07-29-2023 Patient encounter procedure KAYY MIRAMONTES [facility] Start: 07-16-2023 End: 07-16-2023 ambulatory COLOR TECHNICIAN-C Alyssa Lesly Maxwell Work Phone: [facility] Work Phone: Start: 07-16-2023 End: 07-16-2023 Patient encounter procedure COLOR TECHNICIAN-C Alyssa Maxwell Work Phone: [facility] Work Phone: Start: 07-15-2023 End: 07-15-2023 ambulatory Hermilo GASTON Facility:[facility] Start: 07-15-2023 End: 07-15-2023 Patient encounter procedure Hermilo GASTON [facility] Start: 07-08-2023 End: 07-08-2023 ambulatory PA-C KAYY MIRAMONTES Facility:[facility] Start: 07-08-2023 End: 07-08-2023 Lab Drop off KAYY MIRAMONTES [facility] Start: 07-08-2023 End: 07-08-2023 ambulatory Hermilo Aimee ALEK Facility:[facility] Start: 07-08-2023 End: 07-08-2023 Patient encounter procedure Hermilo GASTON [facility] Start: 06-24-2023 ambulatory PA-C KAYY MIRAMONTES Facility:[facility] Start: 06-24-2023 Registered Recurring COLOR TECHNICIAN-C Alanis Azar Work Phone: [facility] Start: 06-05-2023 End: 06-05-2023 ambulatory Asif Cox Other [employer] Other Start: 06-05-2023 Telephone encounter Asif Cox [facility] Start: 06-04-2023 (PROC) PROCEDURE Asif Cox [facility] Start: 06-04-2023 End: 06-04-2023 Admission to same day surgery center COLOR TECHNICIAN-C Alyssa Arreola Work Phone: [facility] Work Phone: Start: 06-04-2023 End: 06-04-2023 ambulatory COLOR TECHNICIAN-C Alyssa Arreola Work Phone: [facility] Work Phone: Start: 05-28-2023 End: 05-28-2023 ambulatory PA-C KAYY [facility]ONTES [facility] Start: 05-28-2023 End: 05-28-2023 Patient encounter procedure KAYY MIRAMONTES [facility] Start: 05-19-2023 End: 05-19-2023 Patient encounter procedure COLOR TECHNICIAN-C Alyssa Arreola Work Phone: [facility] [place] Work Phone: Start: 05-19-2023 End: 05-19-2023 ambulatory COLOR TECHNICIAN-C Alyssapollo Arreola Work Phone: [facility] Work Phone: Start: 05-19-2023 Office outpatient vi sit 25 minutes Asif Jackie [facility] Start: 05-19-2023 End: 05-19-2023 Patient encounter procedure COLOR TECHNICIAN-C Alyssa Arreola Work Phone: [facility]- Start: 04-16-2023 End: 04-16-2023 [address] Asif Jackie Other [facility] [employer] Other Start: 04-16-2023 Telephone encounter Asif Jackie [facility] Start: 04-09-2023 Office outpatient vi sit 25 minutes Destini Kilgore [facility] Start: 04-09-2023 End: 04-09-2023 ambulatory COLOR TECHNICIAN-C Alyssa Arreola Work Phone: [facility] Work Phone: Start: 04-09-2023 End: 04-09-2023 Patient encounter procedure COLOR TECHNICIAN-C Alyssa Arreola Work Phone: [facility] [place] Work Phone: Start: 04-09-2023 End: 04-09-2023 Patient encounter procedure COLOR TECHNICIAN-C Alyssa Arreola Work Phone: [facility] Work Phone: Start: 03-06-2023 Registered Recurring COLOR TECHNICIAN-C Alanis Azar Work Phone: [facility] Start: 02-25-2023 Registered Recurring COLOR TECHNICIAN-Jess Azar Work Phone: [facility] Start: 01-23-2023 End: 01-23-2023 ambulatory Asif Cox Other [employer] Other Start: 01-23-2023 Patient encounter procedure Asif Cox [facility] Start: 01-09-2023 End: 01-09-2023 ambulatory Destini Kilgore Other [employer] Other Start: 01-09-2023 Office outpatient vi sit 25 minutes Destini Kilgore [facility] Start: 11-07-2022 End: 11-07-2022 ambulatory Asifjohn Cox Other [employer] Other Start: 11-07-2022 Office outpatient vi sit 25 minutes Asifjohn Cox [facility] Start: 10-31-2022 End: 10-31-2022 ambulatory Asif Cox Other [employer] Other Start: 10-31-2022 Office outpatient vi sit 25 minutes Asifjohn Cox [facility] Start: 08-26-2022 End: 08-27-[address] MARTI JEREZ . Facility:[facility] Start: 08-07-2022 End: 08-07-2022 ambulatory Asif Cox Other [employer] Other Start: 08-07-2022 Office outpatient vi sit 15 minutes Asif Cox [facility] Start: 08-05-2022 End: 08-05-[address] MARTI JEREZ . Facility:[facility] Start: 07-24-2022 (PROC) PROCEDURE Asif Cox [facility] Start: 07-24-2022 End: 07-24-2022 Admission to same day surgery center COLOR TECHNICIAN-Jess Arreola Work Phone: [facility] Work Phone: Start: 07-24-2022 End: 07-24-2022 ambulatory COLOR TECHNICIAN-C Alyssa Lesly Maxwell Work Phone: [facility] [employer] Work Phone: Start: 07-14-2022 End: 07-14-2022 ambulatory FRANNIE BURTON . Facility:[facility] Start: 07-08-2022 Office outpatient vi sit 25 minutes Asif Jackie [facility] Start: 07-08-2022 End: 07-08-2022 ambulatory COLOR TECHNICIAN-C Alyssa Lesly Maxwell Work Phone: [facility] [employer] Work Phone: Start: 07-08-2022 End: 07-08-2022 Patient encounter procedure COLOR TECHNICIAN-C Alyssa Maxwell Work Phone: [facility] Work Phone: Start: 05-20-2022 End: 05-20-[address] MARTI JEREZ . Facility:[facility] Start: 05-17-2022 End: 05-17-2022 ambulatory Asif Jackie Other [employer] Other Start: 05-17-2022 Office outpatient vi sit 25 minutes Asif Jackie [facility] Start: 05-01-2022 End: 05-25-2022 ambulatory ASIF JACKIE Facility:[facility] Start: 04-05-2022 Office outpatient vi sit 25 minutes Asif Jackie [facility] Start: 04-05-2022 End: 04-05-2022 ambulatory COLOR TECHNICIAN-C Alyssa Lesly Maxwell Work Phone: [facility] [employer] Other Start: 04-05-2022 End: 04-05-2022 Patient encounter procedure COLOR TECHNICIAN-C Alyssa Maxwell Work Phone: [facility] Start: 03-18-2022 End: 03-19-2022 ambulatory ALYSSA MAXWELL Facility:[facility] Start: 02-07-2022 End: 02-07-2022 ambulatory Asif Jackie Other [employer] Other Start: 02-07-2022 Patient encounter procedure Asif Cox [facility] Start: 01-18-2022 End: 01-18-2022 ambulatory Asif Cox Other [employer] Other Start: 01-18-2022 Office outpatient vi sit 25 minutes Asifjohn Cox [facility] [place] Start: 12-24-2021 End: 12-24-2021 Patient encounter procedure COLOR TECHNICIAN-C Alyssa Arreola Work Phone: [facility] Start: 12-17-2021 End: 12-17-2021 ambulatory Asif Cox Other [facility] [employer] Other Start: 12-17-2021 Office outpatient vi sit [...] 10-15-2021 End: 10-15-2021 ambulatory Asif Cox Other [employer] Other Start: 10-15-2021 Office outpatient vi sit 25 minutes Asif Cox [facility] Start: 10-15-2021 End: 10-15-2021 Patient encounter procedure COLOR TECHNICIAN-C Alyssa [facility] Start: 10-12-[address] MARTI JEREZ . Facili ty:[facility] Start: 10-09-2021 End: 10-09-2021 Lab [facility] Start: 10-09-2021 End: 10-09-2021 Patient encounter procedure Cipriano Romero Jr. [facility] Start: 09-19-2021 End: 09-19-2021 ambulatory Destini Kilgore Other [employer] Other Start: 09-19-2021 Telephone encounter Destini Kilgore [facility] Start: 09-13-2021 End: 09-13-2021 ambulatory Destini Kilgore Other [employer] Other Start: 09-13-2021 Office outpatient vi sit 15 minutes Destini Kilgore [facility] Start: 09-06-2021 End: 09-06-2021 ambulatory ALYSSAPOLLO ARREOLA Facility:[facility] Start: 09-04-2021 End: 09-05-2021 ambulatory ALYSSA ARREOLA Facility:[facility] Start: 08-15-2021 (Procedure) Short Asif Garciaky [facility] Start: 08-15-2021 End: 08-15-2021 ambulatory Asif Jackie Other [employer] Other Start: 08-09-2021 End: 08-09-2021 Lab Drop off KAYY MIRAMONTES [facility] Start: 08-09-2021 End: 08-09-2021 Patient encounter procedure KAYY MIRAMONTES [facility] Start: 08-02-2021 End: 08-02-2021 ambulatory Asif Jackie Other [employer] Other Start: 08-02-2021 Office outpatient vi sit 25 minutes Asif Jackie [facility] Start: 07-09-2021 End: 07-09-2021 ambulatory Mellissa Strange Other [employer] Other Start: 07-09-2021 Office outpatient vi sit 25 minutes Asif Jackie [facility] Start: 07-09-2021 Telephone encounter Mellissa Strange [facility] Start: 07-04-2021 End: 07-04-2021 ambulatory Mellissa Strange Other [employer] Other Start: 07-04-2021 Office outpatient ne w 30 minutes Mellissa Strange [facility] Start: 06-07-2021 End: 06-07-2021 ambulatory Destini Kilgore Other [employer] Other Start: 06-07-2021 Office outpatient vi sit 25 minutes Destini Kilgore [facility] Start: 05-08-2021 (Procedure) [place] Asif Cox [facility] Start: 05-08-2021 End: 05-08-2021 ambulatory Asif Jackie Other [employer] Other Start: 04-30-2021 End: 04-30-2021 ambulatory Asif Jackie Other [employer] Other Start: 04-30-2021 Office outpatient vi sit 25 minutes Asif Jackie [facility] Start: 04-26-2021 End: 04-27-2021 ambulatory AB A [facility] Facility:[facility] Start: 04-19-2021 (Procedure) Short Asif Cox [facility] Start: 04-19-2021 End: 04-19-2021 ambulatory Asif Jackie Other [employer] Other Start: 04-05-2021 End: 04-05-2021 ambulatory Asif Jackie Other [employer] Other Start: 04-05-2021 Office outpatient vi sit 25 minutes Asif Cox [facility] Start: 03-29-2021 (Procedure) Short Asif Cox [facility] Start: 03-29-2021 End: 03-29-2021 ambulatory Asif Cox Other [facility] [employer] Other Start: 03-19-2021 End: 03-19-2021 ambulatory Asif Cox Other [employer] Other Start: 03-19-2021 Office outpatient vi sit 25 minutes Asif Cox [facility] Start: 03-07-2021 (Procedure) Enzo Cox [facility] Start: 03-07-2021 End: 03-07-2021 ambulatory Asif Cox Other [facility] [employer] Other Start: 02-26-2021 End: 02-26-2021 ambulatory Asif Cox Other [employer] Other Start: 02-26-2021 Office outpatient vi sit 25 minutes Asif Cox [facility] Procedures Date Procedure Procedure Detail Performing Clinician Start: 01-17-2025 IGP,APTIMA HPV,AGE GDLN Shauna Pickett PA Work Phone: Start: 05-26-2024 Mri spinal canal cer vical w/o contrast matrl Cheyanne Schilling COLOR TECHNICIAN Work Phone: Start: 02-25-2024 MR lumbar spine wo con COLOR TECHNICIAN-C Alyssa Arreola Work Phone: Start: 02-19-2024 End: 02-19-2024 Needle emg ea extremty w/paraspinl area complete Cheyanne Schilling COLOR TECHNICIAN Work Phone: Start: 12-11-2023 X-ray of both knees COLOR TECHNICIAN- C Alyssa Arreola Work Phone: Start: 07-15-2023 Injection of botulin um toxin type A into detrusor muscle of urinary bladder KAYY MIRAMONTES Start: 06-04-2023 [employer] Frequ ency (Bilateral) COLOR TECHNICIAN-C Alyssa Arreola Work Phone: Start: 05-19-2023 X-ray of lumbar spin e, four views COLOR TECHNICIAN-C Alyssa Arreola Work Phone: Start: 04-09-2023 Plain X-ray of left hip COLOR TECHNICIAN-C Alyssa Arreola Work Phone: Start: 08-05-2022 Microscopic observat ion [Identifier] in Cervix by Cyto stain Cheyanne Schilling COLOR TECHNICIAN Work Phone: Start: 07-24-2022 [employer] Frequ ency (Bilateral) COLOR TECHNICIAN-C Alyssa Arreola Work Phone: Start: 07-08-2022 Plain X-ray of right shoulder COLOR TECHNICIAN-C Alyssa Arreola Work Phone: Start: 04-05-2022 X-ray of cervical spine COLOR TECHNICIAN-C Alyssa Arreola Work Phone: Start: 12-24-2021 MR thoracic spine wo con COLOR TECHNICIAN-C Alyssa Arreola Work Phone: Start: 10-15-2021 Radiography of thora cic spine COLOR TECHNICIAN-C Alyssa Arreola Work Phone: Start: 02-20-2021 Cystoscopy KAYY Felicita AILYN Start: 01-04-2020 Cystoscopy KAYY Mims ERRY Start: 06-02-2018 cysto/ botox KAYY Felicita ERRY Start: 01-28-2017 cystoscopy KAYY Mims ERRY back surgery KAYY THERESA carpel tunnel release SAGE DICKSON THERESA cesearian section KAYY Mims ERRY Cholecystectomy KAYY CALDERON D&C KAYY MIRAMONTES H/O: tubal ligation KAYY MIRAMONTES Plan of Treatment Date Care Activity Detail Author Start: 01-23-2026 End: 01-23-2026 Patient encounter procedure 01/23/2026 1:00 PM EDT Procedure Visit JENI CROCKER [address] [place] [address] Shauna Pickett PA [address] [place], [place] [id number] JENI DUMONTGYAbel Start: 08-05-2025 Screening for malignant neoplasm of cervix [facility] Start: 03-16-2025 End: 03-16-2025 Patient encounter procedure [facility] [address] Start: 01-17-2025 End: 01-17-2026 DXA Skeletal system Views for bone density DEXA bone density Imaging Routine Osteoporosis, post-menopausal Expected: 01/17/2025 (Approximate), Expires: 01/17/2026 [facility] Comment on above: Expected: 01/17/2025 (Approximate), Expires: 01/17/2026 Start: 01-17-2025 End: 03-19-2026 MG Breast - bilateral Screening Bilateral screening mammogram Imaging Routine Encounter for screening mammogram for malignant neoplasm of breast Expected: 01/17/2025 (Approximate), Expires: 03/19/2026 [facility] Work Phone: Comment on above: Expected: 01/17/2025 (Approximate), Expires: 03/19/2026 Start: 01-17-2025 End: 01-17-2025 Patient encounter procedure 01/17/2025 1:30 PM EDT Procedure Visit JENI CROCKER [address] [place] [address] Shauna Pickett PA [address] [place] [address] Arrived JENI CROCKER Comment on above: Arrived Start: 01-05-2025 End: 01-05-2025 Patient encounter procedure 01/05/2025 11:00 AM EDT Office Visit KRISTI VALLE [address] [place] [id number] Cheyanne Schilling NP [address] [place] [address] [facility]ST[facility] Start: 12-27-2024 Influenza vaccination [facility] Start: 09-15-2024 End: 09-15-2024 Patient encounter procedure 09/15/2024 9:40 AM EDT Office Visit KRISTI VALLE [address] [place] [address] Cheyanne Schilling NP [address] [place] [address] [facility]RISTI [facility] Start: 06-03-2024 End: 06-03-2024 Patient encounter procedure [facility] [place] Comment on above: Arrived Start: 05-05-2024 End: [...] procedure 03/04/2024 3:40 PM EST Office Visit [facility] [place] [address] [place] [address] Cheyanne Schilling NP [address] [place] [address] Arrived [facility] [place] [facility] Comment on above: Arrived Start: 02-19-2024 End: 02-19-2024 Patient encounter procedure [facility] Comment on above: Arrived Start: 02-11-2024 End: 02-10-2025 EMG 2 Extremities EMG 2 Extremities Neurology Routine Carpal tunnel syndrome, bilateral Expected: 02/11/2024 (Approximate), Expires: 02/10/2025 [facility] Work Phone: Comment on above: Expected: 02/11/2024 (Approximate), Expires: 02/10/2025 Start: 02-11-2024 End: 02-11-2024 Patient encounter procedure 02/11/2024 10:40 AM EDT Office Visit [facility] [address] [place] [address] Cheyanne Schilling, COLOR TECHNICIAN [address] [place] [address] Migraine without aura and without status migrainosus, not intractable (CMS/HCC) (Primary Dx); CARLOS (obstructive sleep apnea); Lumbar radiculopathy; Fibromyalgia; Polypharmacy [facility] [address] Comment on above: Migraine without aur a and without status migrainosus, not intractable (CMS/HCC) (Primary Dx); CARLOS (obstructive sleep apnea); Lumbar radiculopathy; Fibromyalgia; Polypharmacy Start: 12-28-2023 Influenza vaccination Influenza Vacc ine (#1) [facility] Start: 06-04-2023 [facility] Start: 07-24-2022 [facility] Start: 2009 Screening for malignant neoplasm of breast Mammogram [facility] Start: 12-24-1999 Screening for malignant neoplasm of cervix HPV/Cotest [facility] Start: 1969 Screening for malignant neoplasm of colon [facility] MR Lumbar spine WO contrast [facility] Patient Education Jackie Non Diagn ostic Block [facility] Work Phone: Patient referral [facility] Work Phone: THIN PREP TIS PAP AN D HR HPV DNA THIN PREP TIS PAP AND HR HPV DNA Pathology and Cytology Routine Well woman exam with routine gynecological exam Ordered: 01/17/2025 [facility] Comment on above: Ordered: 01/17/2025 XR Knee - bilateral 4 Views [facility] Immunizations Immunization Date Immunization Notes Care Provider Fa pito 10-07-2021 COVID-19 Comirnaty (Pfizer) Tri-Sucrose 12+ COLOR TECHNICIAN-C Alyssa Arreola Work Phone: [facility] 10-07-2021 SARS-CoV-2 mRNA (mazfakynpyn-mzzu-zbfu ose) vaccine KAYY MIRAMONTES [facility] 10-07-2021 zoster vaccine recombinant KAYY MIRAMONTES [facility] 2020 SARS-CoV-2 (COVID-19 ) mRNA BNT-162b2 vax KAYY MIRAMONTES [facility] 12-02-2020 SARS-CoV-2 (COVID-19 ) mRNA BNT-162b2 vax KAYY MIRAMONTES [facility] 01-09-2015 influenza virus vaccine, unspecified formulation KAYY MIRAMONTES [facility] 01-09-2015 influenza, injectabl e, quadrivalent, preservative free COLOR TECHNICIAN-C Alyssa Arreola Work Phone: [facility] NEGATED: Highlighted row has not occurred!07-31-2020 influenza virus vaccine, unspecified formulation KAYY MIRAMONTES [facility] Payers Date Payer Category Payer Self-pay [id number] 2022 Medicaid [employer] [place] [id number] 2022 Medicaid [id number] 1970 Unknown [id number] 2.16.840.1.715593.3.579.2.647 1969 Unknown [id number] 2.16.840.1.966740.3.579.2.593 1969 Unknown [id number] 2.16.840.1.755538.3.579.2.593 1969 Unknown [id number] 2.16.840.1.904057.3.579.2.593 1969 Unknown [id number] 2.16.840.1.603203.3.579.2.593 1969 Unknown [id number] 2.16.840.1.708600.3.579.2.593 1969 Unknown [id number] 2.16.840.1.714562.3.579.2.593 1969 Unknown [id number] 2.16.840.1.757741.3.579.2.593 1969 Unknown [id number] 2.16.840.1.995155.3.579.2.593 1969 Unknown [id number] 2.16.840.1.315675.3.579.2.593 1969 Unknown [id number] 2.16.840.1.476959.3.579.2.593 1969 Unknown [id number] 2.16.840.1.012699.3.579.2.593 1969 Unknown [id number] 2.16.840.1.284558.3.579.2.593 1969 Unknown [id number] 2.16.840.1.986680.3.579.2.593 1969 Unknown [id number] 2.16.840.1.974007.3.579.2.593 1969 Unknown [id number] 2.16.840.1.416511.3.579.2.727 1969 Unknown [id number] 2.16.840.1.501572.3.579.2.727 1969 Unknown [id number] 2.16.840.1.755224.3.579.2.727 1969 Unknown [id number] 2.16.840.1.829198.3.579.2.727 1969 Unknown [id number] 2.16.840.1.897696.3.579.2.727 1969 Unknown [id number] 2.16.840.1.482550.3.579.2.727 1969 Unknown [id number] 2.16.840.1.851241.3.579.2.727 1969 Unknown [id number] 2.16.840.1.266058.3.579.2.727 1969 Unknown [id number] 2.16.840.1.769764.3.579.2.727 1969 Unknown [id number] 2.16.840.1.718839.3.579.2.727 1969 Unknown [id number] 2.16.840.1.552765.3.579.2.1259 1969 Unknown [id number] 2.16.840.1.343194.3.579.2.1259 1969 Unknown [id number] 2.16.840.1.301723.3.579.2.1259 1969 Unknown [id number] 2.16.840.1.449667.3.579.2.1259 1969 Unknown [id number] 2.16.840.1.151320.3.579.2.1259 1969 Unknown [id number] 2.16.840.1.755323.3.579.2.9 1969 Unknown [id number] 2.16.840.1.604955.3.579.2.1259 1969 Unknown [id number] 2.16.840.1.152494.3.579.2.1259 1959 Unknown [id number] Self-pay Self Pay Cosmetic/Pain Mgmt [id number] Unknown [id number] 2..1.206676.19 Unknown [place] [employer]/BS [id number] Unknown [place] [employer] [id number] Unknown [id number] 2.840.1.519268.3.579.2.531 Unknown [id number] 2.0.1.256633.3.579.2.531 Social History Date Type Detail Facility Start: 12-29-2020 End: 09-24-2023 Tobacco smoking status Never smoked tobacco (finding) [employer] Other Start: 09-24-2023 End: 05-05-2024 Sex Assigned At Female [facility] [employer] Other Start: 08-29-2021 End: 06-16-2024 Tobacco smoking status NHIS Ex-smoker (finding) [facility] Start: 1970 Sex Assigned At Female [facility] Tobacco smoking status Never [facility] Start: 09-24-2023 Tobacco use and exposure Smokeless tobacco non-user [facility] Start: 09-24-2023 End: 03-04-2024 Alcoholic beverage intake Lifetime non-drinker (finding) [facility] Start: 09-24-2023 End: 05-05-2024 History of Social function [facility] Start: 1970 Sex assigned at Not on file [facility] Start: 05-05-2024 End: 01-17-2025 Alcoholic beverage intake Ex-drinker (finding) [facility] Start: 06-16-2024 End: 09-29-2024 Sex Female (finding) [facility] Goals Date Patient Goal Desired Activity /State Functional Status Date Assessment Result Facility 02-12-2024 Functional Status N/A [facility] 07-29-2023 Functional Status N/A [facility] 07-15-2023 Functional Status N/A [facility] 05-28-2023 Functional Status N/A [facility] Clinical Notes 03-19-2021 to 01-17-2025 DIVYA Kyle - 01/17/2025 1:30 PM EDT Note Date & Type Note Facility 01-17-2025 History of Presen t illness Narrative Reason for Appointment: Patient ID: Shailesh Blake is a 54 y.o. female who presents for Gynecologic Exam Patient presents today for Annual Exam. MEDICATIONS Current Outpatient Medications Medication Instructions acetaZOLAMIDE (DIAMOX) 250 mg, Daily albuterol HFA 90 mcg/act inhaler 1 puff, Every 4 hours PRN kxuwcgc-ktzfoovgugtnx-noddgtve (Excedrin Migraine) 250-250-65 MG tablet 2 tablets, [...] nursing note reviewed. Exam conducted with a carpenter maintenance present. Vitals: Estimated body mass index is [...] of: DIVYA Kyle documented in this encounter [facility] 12-30-2024 Evaluation note Diagnosis Onset Date Resolution Chronic pain acute December 2:50pm Primary osteoarthritis of left knee acute December 30, 025 2:50pm Primary osteoarthritis of right knee acute December 30, 2 025 2:50pm Chronic pain acute January 202024 11:42am Primary osteoarthritis of left knee acute January 20, 2025 11:42am Primary osteoarthritis of right knee acute January 20, 2025 11:42am [facility] Work Phone: 1(960) 312-511605-21-2025 History of Present illness Narrative* Cheyanne Schilling, ADONAY - 09/15/2024 9:40 AM EDT Images from the original note were not included. Chief Complaint Patient presents with Migraine Back Pain Subjective Shailesh Blake is a 53 y.o. female. History of Present Illness The patient presents today for follow-up. She states her migraines have worsened since the prior neurology appointment. She had not been able to steel pickler Emgality from her pharmacy since 07/21/2024, so [...] provided at the prior appointment and states thiswas more effective than Nurtec. The patient states [...] 2024. She has not returned to the [facility] since the prior neurology appointment. She [...] extensors , and wrist flexor strength 5/5. Parts Facilitator strength 4+/5. LUE strength deltoid , biceps , triceps , wrist extensors , and wrist flexor strength 5/5. Parts Facilitator strength 4+/5. RLE strength iliopsoas, quadriceps, tibialis [...] reflex 0. LLE knee reflex 0. Coordination: Cnecru-gq-qziz testing normal. Rapid alternating movements are normal. [...] EMG of the bilateral upper extremities at [facility] on 02/23/24: Normal. No [...] of the lumbar spine w/o contrast at [facility] on 05/19/23: No fractures or subluxation. No pathologic movement on flexion or extension. There is mild intervertebral disc height loss at L3-L4, L4-L5, and L5-S1. Facet degenerative changes are present throughout the lower lumbar spine. The sacrum and sacroiliac joints are normal. MRI of the brain w and w/o contrast at [facility] on 05/15/23: No acute intracranial process. Scattered nonenhancing T2 hyperintense white matter lesions which are nonspecific, typically attributed to prior trauma/inflammation/demyelination, or chronic ischemia associated with migraine/atherosclerosis. Nasal sinus disease. MRI of the lumbar spine w/o contrast at [facility] on 02/14/21: See report for [...] headache cause. The patient has tried Ajovy, Aimovig,Depakote, venlafaxine, lamotrigine, topiramate, rizatriptan, naratriptan, and Ubrelvy [...] . Take no more than 1 time in24 hours. Proper use reviewed - Ensure adequate [...] with both Dr. Cox (pain management) and [facility] with positive response. PLAN: - Follow up with pain management and [facility] for management - She is taking [...] symptoms may be musculoskeletal or secondary to fibromyal vickie. PLAN: - Follow up with pain management and [facility] for management Polypharmacy PLAN: - Consider dose reduction or discontinuation of any unnecessary medications with outside providers Seizure ([facility]) The patient reportedly had one [...] if needed for new or worsening symptoms. LD Lemus [facility] documented in this encounterExcelsior Springs Medical [id number] Evaluation note* Diagnosis Onset Date Resolution Status Admit Date Chronic pain acute July 08, 2024 2:53pm Lumbar radiculopathy acute [place] h 2024 2:53pm Primary osteoarthritis of le ft knee acute July 08, 2024 2:53pm Cervical spondylosis acute September 29, 2024 10:32am Chronic pain acute September 29 10:32am Lumbar radiculopathy acute September 29, 2024 10:32am Primary osteoarthritis of le ft knee acute September 29, 2024 1 0:32am Primary osteoarthritis of ri ght knee acute September 29, 2024 1 0:32am [facility] Work Phone: 1(591) 379-674802-19-2025 Evaluation note* Diagnosis Onset Date Resolution Status Admit Date Chronic pain acute May 9:07am Primary osteoarthritis of le ft knee acute June 16, 025 9:07am Primary osteoarthritis of ri ght knee acute June 16, 2 025 9:07am Chronic pain acute July 08, 2024 2:53pm Lumbar radiculopathy acute [place] h 2024 2:53pm Primary osteoarthritis of le ft knee acute July 08, 2024 2:53pm [facility] Work Phone: 1(428) 800-784402-06-2025 History of Present illness Narrative* Cheyanne Schilling, ADONAY - 06/03/2024 1:20 PM EST Images from [...] She has not been back to the [facility] recently due to weather andsnow. She states she will return as soon as the snow clears up. She states they were doing physicaltherapy, acupuncture, cupping, chiropractic manipulation, and trigger point injections at [facility] which all helped to adequately control [...] extensors , and wrist flexor strength 5/5. Parts Facilitator strength 4+/5. LUE strength deltoid , biceps , triceps , wrist extensors , and wrist flexor strength 5/5. Parts Facilitator strength 4+/5. RLE strength iliopsoas, quadriceps, tibialis [...] reflex 0. LLE knee reflex 0. Coordination: Axyebv-dv-nqei testing normal. Rapid alternating movements are normal. [...] EMG of the bilateral upper extremities at [facility] on 02/23/24: Normal. No [...] of the lumbar spine w/o contrast at [facility] on 05/19/23: No fractures or subluxation. No pathologic movement on flexion or extension. There is mild intervertebral disc height loss at L3-L4, L4-L5, and L5-S1. Facet degenerative changes are present throughout the lower lumbar spine. The sacrum and sacroiliac joints are normal. MRI of the brain w and w/o contrast at [facility] on 05/15/23: No acute intracranial process. Scattered nonenhancing T2 hyperintense white matter lesions which are nonspecific, typically attributed to prior trauma/inflammation/demyelination, or chronic ischemia associated with migraine/atherosclerosis. Nasal sinus disease. MRI of the lumbar spine w/o contrast at [facility] on 02/14/21: See report for [...] foraminal stenosis. The patient previously followed withDr. Jackie (pain management) but has since transitioned care to [facility] with positive response. PLAN: - Follow up with [facility] for management - She is taking [...] secondary to fibromyalgia - Follow up with [facility] for management Polypharmacy PLAN: - Consider dose reduction or discontinuation of any unnecessary medications with outside providers Seizure ([facility]) The patient reportedly had one [...] [facility] documented in this encounterExcelsior Springs Medical [id number] History of Present illness Narrative* Cheyanne Schilling [...] does not drop objects. She isfollowing with [facility] for her neck and low back [...] extensors , and wrist flexor strength 5/5. Parts Facilitator strength 4+/5. LUE strength deltoid , biceps , triceps , wrist extensors , and wrist flexor strength 5/5. Parts Facilitator strength 4+/5. RLE strength iliopsoas, quadriceps, tibialis [...] reflex 0. LLE knee reflex 0. Coordination: Vxxnhc-ae-ifrh testing normal. Rapid alternating movements are normal. Gait: Normal. Steady. Review and summary of old records: EMG of the bilateral upper extremities at [facility] on 02/23/24: Normal. No [...] of the lumbar spine w/o contrast at [facility] on 05/19/23: No fractures or subluxation. No pathologic movement on flexion or extension. There is mild intervertebral disc height loss at L3-L4, L4-L5, and L5-S1. Facet degenerative changes are present throughout the lower lumbar spine. The sacrum and sacroiliac joints are normal. MRI of the brain w and w/o contrast at [facility] on 05/15/23: No acute intracranial process. Scattered nonenhancing T2 hyperintense white matter lesions which are nonspecific, typically attributed to prior trauma/inflammation/demyelination, or chronic ischemia associated with migraine/atherosclerosis. Nasal sinus disease. MRI of the lumbar spine w/o contrast at [facility] on 02/14/21: See report for [...] plans to pick these up in our [place] office tomorrow. I educated the patient on [...] management) but has since transitioned care to [facility] with positive response. PLAN: - Follow up with [facility] for management - She is taking [...] the patient's symptoms - Follow up with [facility] for management Polypharmacy PLAN: - Consider dose reduction or discontinuation of any unnecessary medications with outside providers Seizure ([facility]) The patient reportedly had one [...] [facility] documented in this [facility]01-08-2025 Instructions* Patient Instructions* Cheyanne Schilling NP - 05/05/2024 11:20 AM EST - MRI of the cervical spine ([facility]) - Start Zavzpret as directed for acute migraine treatment. Do not take concurrently with Nurtec documented in this [facility]11-13-2024 History of Present illness Narrative* Tank Lancaster DO - 03/10/2024 1:15 PM EST Images from the original note were not included. Chief Complaint Patient presents with Sleep Apnea Subjective Shailesh Brandon Hayden, 53 y.o., female here for follow up [...] download we are trying to get 1from [facility]. She likely is taking off and not [...] Plan [facility] Her sleep study was once again reviewed with her with her oxygen going down to 78 percent Wear the CPAP machine whenever sleeping including naps The patient was counseled on the need for aggressive diet, exercise, and weight loss. The patient was counseled on the risks of stroke, UT, and sudden with CARLOS, along with the [...] once we get it. documented in this encounterExcelsior Springs Medical [id number] History of Present illness Narrative* Cheyanne Schilling [...] states pain management referred her to the [facility] where they are doing injections and [...] wrist extensors , wrist flexor , and admin prog coord strength 5/5. LUE strength deltoid , biceps , triceps , wrist extensors , wrist flexor , and admin prog coord strength 5/5. RLE strength iliopsoas, quadriceps, tibialis [...] reflex 0. LLE Knee reflex 0. Coordination: Cighvr-ts-xguc testing normal. Rapid alternating movements are normal. Gait: Normal. Review and summary of old records: EMG of the bilateral upper extremities at [facility] on 02/23/24: Normal. No [...] of the lumbar spine w/o contrast at [facility] on 05/19/23: No fractures or subluxation. No pathologic movement on flexion or extension. There is mild intervertebral disc height loss at L3-L4, L4-L5, and L5-S1. Facet degenerative changes are present throughout the lower lumbar spine. The sacrum and sacroiliac joints are normal. MRI of the brain w and w/o contrast at [facility] on 05/15/23: No acute intracranial process. Scattered nonenhancing T2 hyperintense white matter lesions which are nonspecific, typically attributed to prior trauma/inflammation/demyelination, or chronic ischemia associated with migraine/atherosclerosis. Nasal sinus disease. MRI of the lumbar spine w/o contrast at [facility] on 02/14/21: See report for [...] Follow up with pain management and the [facility] - She is taking gabapentin 400 [...] management - Continue physical therapy at the [facility] Polypharmacy PLAN: - Consider dose reduction or discontinuation of any unnecessary medications with outside providers Seizure ([facility]) The patient reportedly had one [...] [facility] documented in this encounterExcelsior Springs Medical [id number] Instructions* Patient Instructions* Cheyanne Schilling NP - 03/04/2024 3:00 PM EST - Continue physical therapy documented in this [facility]10-24-2024 History of Present illness Narrative* EVETTE Sanchez - 02/19/2024 12:30 PM EDT Images from the original note were not included. Reason for Appointment: EMG Patient: Shailesh Blake : 1970 EMG Computer: [employer] Referring Physician: Dr. Joel Jerez EMG: TIMA government affairs researcher: Wenceslao Carballo RT(R) Office Location: [place] Reason for EMG: c/o pain in bilateral hands/forearms L>R, neck pain into bilateral shoulders. Hxof CTR on right. Pt states Borderline DM. Not on blood thinners. Comments: Procedure was explained to the patient who expressed understanding. Patient appeared to have tolerated the test well despite some discomfort due to the nature of the test. documented in this [facility]10-22-2024 Telephone encounter Note* Telephone Encounter - Kelly Carty MA - 02/17/2024 10:32 AM EDT Patient picked this up on 02/10 and has refills on file with the pharmacy and they said she should be able to steel pickler it uo every 30 days. [facility] [id number] Miscellaneous Notes* Telephone Encounter - Kelly Carty MA - 02/17/2024 10:32 AM EDT Patient picked this up on 02/10 and has refills on file with the pharmacy and they said she should be able to steel pickler it uo every 30 days. * Telephone Encounter - Carol Sheridan MA - 02/11/2024 1:24 PM EDT PA request was in the medical center, I did this on [facility] but got this response: Electronic prior authorization [...] needs a prior authorization. documented in this encounterExcelsior Springs Medical [id number] Evaluation + Plan note Diagnostic Tests Pending * Urine Culture 02/12/24 [facility] [id number] Hospital Discharge instructions Patient Education 02/12/2024 09:43:47 [...] your health care provider. General instructions Take muji-hdv-ttrjimf and prescription medicines only as told by [...] provider. Document Revised: 01/01/2021 Document Reviewed: 01/01/2021 [employer] Patient Education 2023 [employer]. Follow Up Care 07/29/2023 15:25:11 With:THERESA MOCTEZUMA, KAYY Buenrostro, URL Address: [address] [place] [address] [facility] (1) When: Unknown Comments:pending results of imaging/testing, will call with next steps [facility] Leonard 10-17-2024 NotePatient Education Obstetrics and Gynecology Overactive [...] health care provider. General instructions ? Take dzih-cwe-zaisghs and prescription medicines only as told by [...] help your health care (more content not included)...[facility]10-16-2024 Telephone encounter Note* Telephone Encounter - Carol Sheridan MA - 02/11/2024 1:24 PM EDT PA request was in epic, I did this on [facility] but got this response: Electronic prior authorization not supported as a duplicate PA was found. If requesting a dose increase or requesting above quantity limits, please submit via other methods. [facility] [id number] Telephone encounter Note* Telephone Encounter - Cheyanne Schilling NP - 02/11/2024 12:39 PM EDT I prescribed Nurtec at the patient's prior appointment. She states her pharmacy dispensed one 30-day prescription to her and then no further refills. Are you able to look into this please? I did reorder the medication today. Not sure if it just needs a prior authorization. [facility] [id number] History of Present illness Narrative* Cheyanne Schilling [...] a migraine. She does not take any zutx-ico-rvulxbu medications for her migraines because she is [...] wrist extensors , wrist flexor , and admin prog coord strength 5/5. LUE strength deltoid , biceps , triceps , wrist extensors , wrist flexor , and admin prog coord strength 5/5. RLE strength iliopsoas, quadriceps, tibialis [...] reflex 0. LLE Knee reflex 0. Coordination: Ighcjn-jk-fszj testing normal. Rapid alternating movements are normal. Gait: Normal. Review and summary of old records: X-ray of the lumbar spine w/o contrast at [facility] on 05/19/23: No fractures or subluxation. No pathologic movement on flexion or extension. There is mild intervertebral disc height loss at L3-L4, L4-L5, and L5-S1. Facet degenerative changes are present throughout the lower lumbar spine. The sacrum and sacroiliac joints are normal. MRI of the brain w and w/o contrast at [facility] on 05/15/23: No acute intracranial process. Scattered nonenhancing T2 hyperintense white matter lesions which are nonspecific, typically attributed to prior trauma/inflammation/demyelination, or chronic ischemia associated with migraine/atherosclerosis. Nasal sinus disease. MRI of the lumbar spine w/o contrast at [facility] on 02/14/21: See report for [...] any unnecessary medications with outside providers Seizure ([facility]) The patient reportedly had one [...] NP [facility] documented in this encounterExcelsior Springs Medical [id number] Instructions* Patient Instructions* Cheyanne Schilling NP - 02/11/2024 10:40 AM EDT - EMG of the bilateral upper extremities - Will prescribe bilateral cock-up wrist splints to wear at bedtime - Follow up with pain management for back pain documented in this encounterExcelsior Springs Medical [id number] Hospital Discharge instructions Patient Education 07/29/2023 15:05:16 [...] your health care provider. General instructions Take zipv-zgn-mxlbmoz and prescription medicines only as told by [...] provider. Document Revised: 01/01/2021 Document Reviewed: 01/01/2021 [employer] Patient Education 2022 [employer]. Follow Up Care 06/06/2023 14:46:16 With:THERESA MOCTEZUMA, KAYY Buenrostro, URL Address: [address] [place] [phone] When:Within 6 Month(s) Comments:Pt to call and cancel if asymptomatic. [facility] 03-19-2024 Hospital Discharge instructions Patient Education 07/15/2023 [...] [place] Address: [facility] [address] [place] [address]- Business (1) When:07/29/2023 08:51:07 Comments:With Whit Miramontes and [facility]03-19-2024 Note [id number] Citizens [facility] 07-[facility]-2023 NoteCustom Cystoscopy with Botox injection [...] if you have a fever over 100 degrees.[facility] 06-05-2023 Evaluation note* Encounter Date Diagnosis Assessment Notes Treatment Notes Treatment Clinical Notes May, Fibromyalgia (ICD-10 - M79.7) [employer] Other [id number] [facility] Hospital Discharge instructions Patient Education 05/28/2023 [...] including vitamins, herbs, eye drops, creams, and xdon-nrd-sastgus medicines. Any problems you or family members [...] provider tells you to take them. Taking cnrs-dlc-udvpicr medicines, vitamins, herbs, and supplements. General instructions [...] Follow these instructions at home: Medicines Take nohs-dpf-crrytjf and prescription medicines only as told by [...] provider. Document Revised: 10/19/2021 Document Reviewed: 10/19/2021 [employer] Patient Education 2022 [employer]. 05/28/2023 16:17:08 Urinary Incontinence Urinary Incontinence Urinary [...] nerve stimulation). ?For women, using a medical affairs director to prevent urine leaks. This is [...] right after experiencing incontinence. General instructions Take ucpr-fwp-jnjajtw and prescription medicines only as told by [...] important. Where to find more information National [place] of Diabetes and Digestive and Kidney Diseases: www.niddk.nih.gov [employer]: www.urologyhealth.org Contact a health care [...] provider. Document Revised: 11/17/2020 Document Reviewed: 11/17/2020 [employer] Patient Education 2022 [employer]. Follow Up Care 04/22/2023 13:23:48 With:THERESA MOCTEZUMA, KAYY Buenrostro, URL Address: [facility] [address] [address] [phone] When: Unknown Comments:sched cysto or Botox [facility] Sue 01-22-2024 Evaluation note* Encounter [...] (ICD-10 - M79.7) Continue medications as prescribed [employer] Other 12-13-2023 Evaluation note* Encounter Date Diagnosis [...] medication related side effects. UDS performed through [facility] today, will await confirmatory results. [employer] Other 09-28-2023 Evaluation note* Encounter Date Diagnosis [...] pain (ICD-10 - G89.29) Continue taking medications [employer] Other 09-14-2023 Evaluation note* Encounter Date Diagnosis [...] 400 mg, two to three times daily [employer] Other 07-13-2023 Evaluation note* Encounter Date Diagnosis [...] Meloxicam and Gabapentin to help with pain. 13 Jorge L, 2023 Myofascial muscle pain (ICD-10 - M79.18) If her pain persists, we can consider trigger point injections to the thoracic paraspinal muscles under ultrasound guidance. Oct, Right knee pain (ICD-10 - M25.561) Continue Meloxicam as prescribed Oct, Chronic pain (ICD-10 - G89.29) Patient is encouraged to call the office when she is close to needing a refill of Gabapentin [employer] Other 07-06-2023 Evaluation note* Encounter Date Diagnosis [...] Stable. Oct, Sacroiliitis (ICD-10 - M46.1) Stable. [employer] Other 04-12-2023 Evaluation note* Encounter Date Diagnosis [...] - M46.1) Follow up in 4 weeks [employer] Other 03-29-2023 [facility] Evaluation note* Encounter Date Diagnosis Assessment [...] Proceed with updated imaging of the shoulder. [employer] Other 01-20-2023 Evaluation note* Encounter Date Diagnosis [...] Proceed with updated imaging of the shoulder. [employer] Other 12-09-2022 Evaluation note* Encounter Date Diagnosis [...] schedule her next appointment to refill this. [employer] Other 10-13-2022 Evaluation note* Encounter Date Diagnosis [...] M47.817) Stable. Continue with current treatment plan. [employer] Other 09-23-2022 Evaluation note* Encounter Date Diagnosis [...] - G89.29) Continue taking Gabapentin as prescribed. [employer] Other 08-22-2022 Evaluation note* Encounter Date Diagnosis [...] - G89.29) Continue taking Gabapentin as prescribed. [employer] Other 06-20-2022 Evaluation note* Encounter Date Diagnosis [...] to use as tolerated for pain relief. [employer] Other 06-14-2022 Evaluation + Plan note Diagnostic Tests Pending * Urine Culture 10/09/21 [facility]05-19-2022 Evaluation note* Encounter Date Diagnosis Assessment [...] time. August, Chronic pain (ICD-10 - G89.29) [employer] Other 04-14-2022 Evaluation + Plan note Diagnostic Tests Pending * Urine Culture 08/09/21 [facility]04-14-2022 Hospital Discharge instructions Patient Education 08/09/2021 [...] fried and sweet foods. General instructions Take nhpz-pqo-scfkqcf and prescription medicines only as told by [...] 02/08/2010 Document Revised: 08/05/2019 Document Reviewed: 04/30/2018 [employer] Patient Education 2019 [employer]. Follow Up Care 07/11/2021 12:59:04 With:THERESA MOCTEZUMA, KAYY Buenrostro, URL Address: [address] [place] [address] [phone] When: Unknown [facility] Sue 04-07-2022 Evaluation note* Encounter [...] time. Jul, Chronic pain (ICD-10 - G89.29) [employer] Other 03-14-2022 Evaluation note* Encounter Date Diagnosis [...] (ICD-10 - G89.29) Continue medications as prescribed [employer] Other 03-09-2022 Evaluation note* Encounter Date Diagnosis Assessment Notes Treatment Notes Treatment Clinical Notes Jun, GERD (gastroesophageal reflux disease) (ICD-10 - K21.9) Jun, Irritable bowel syndrome with constipation (ICD-10 - K58.1) Jun, Morbid obesity (ICD-10 - E66.01) [employer] Other 02-10-2022 Evaluation note* Encounter Date Diagnosis [...] (ICD-10 - G89.29) Continue medications as prescribed [employer] Other 12-09-2021 Evaluation note* Encounter Date Diagnosis [...] (ICD-10 - G89.29) Continue medications as prescribed [employer] Other [id number] Evaluation note* Encounter Date Diagnosis Assessment Notes [...] (ICD-10 - G89.29) Continue medications as prescribed [employer] Other Evaluation + Plan note No data available for this section [facility] [place] Evaluation + Plan note Future Appointments Appointment Date:07/15/2023 08:30:00 AM Scheduled Provider: Location:[facility] Appointment Type:Urology FT Appointment Date:07/29/2023 02:40:00 PM Scheduled Provider:KAYY MIRAMONTES PA-C Location:[facility] Appointment Type:URO Office Visit Diagnostic Tests Pending * [facility]rine [facility] Future Appointments Appointment Date:07/15/2023 08:30:00 AM Scheduled Provider: Location:[facility] Appointment Type:Urology FT Appointment Date:07/29/2023 02:40:00 PM Scheduled Provider:KAYY MIRAMONTES PA-C Location:[facility] Appointment Type:URO Office Visit [facility] evaluation + Plan note Future Appointments Appointment Date:07/29/2023 02:40:00 PM Scheduled Provider:KAYY MIRAMONTES PA-C Location:[facility] Appointment Type:[facility]ments Appointment Date:02/03/2024 08:20:00 AM Scheduled Provider:KAYY MIRAMONTES PA-C Location:[facility] Appointment Type:URO Office Visit [facility] evaluation noteNort [employer] Other evaluation noteNo InformationNoIntapp Other evaluation noteNortPrivalia Other evaluation noteNo assessment information available [facility] Work Phone: evaluation note* Diagnosis Onset Date Resolution Status Chronic pain acute Fibromyalgia acute Lumbosacral spondylosis without myelopathy acute Sacroiliitis acute [facility] Work Phone: evaluation note* Diagnosis Onset Date Resolution Status Chronic pain acute Fibromyalgia acute Lumbosacral spondylosis without myelopathy acute Sacroiliitis acute Chronic pain acute Fibromyalgia acute Lumbosacral spondylosis without myelopathy acute Osteoarthritis of both knees acute Sacroiliitis acute Thoracic spondylosis acute [facility] Work Phone: evaluation note* Diagnosis Onset Date Resolution Status Chronic pain acute Fibromyalgia acute Lumbosacral spondylosis without myelopathy acute Osteoarthritis of both knees acute Sacroiliitis acute [facility] Work Phone: Evaluation note* Diagnosis Onset Date Resolution Status Chronic pain acute Fibromyalgia acute Lumbosacral spondylosis without myelopathy acute Osteoarthritis of both knees acute Sacroiliitis acute Chronic pain acute Lumbar radiculopathy acute Primary osteoarthritis of left knee acute Primary osteoarthritis of right knee acute [facility] Work Phone: Evaluation note* Diagnosis Onset Date Resolution Status Chronic pain acute Fibromyalgia acute Lumbosacral spondylosis without myelopathy acute Osteoarthritis of both knees acute Sacroiliitis acute Chronic pain acute Lumbar radiculopathy acute Primary osteoarthritis of left knee acute Primary osteoarthritis of right knee acute Chronic pain acute Primary osteoarthritis of left knee acute Primary osteoarthritis of right knee acute [facility] Work Phone: Evaluation note* Diagnosis Migraine without aura and without status migrainosus, not intractable ([facility])- Primary CARLOS (obstructive sleep apnea) Obstructive sleep apnea (adult) (pediatric) Carpal tunnel syndrome, bilateral Carpal tunnel syndrome Polypharmacy Issue of repeat prescriptions Seizure ([facility]) Other convulsions documented in this encounter [facility]* Diagnosis Paresthesia- Primary Disturbance of skin sensation documented in this encounter [facility]* Diagnosis Migraine without aura and without status migrainosus, not intractable ([facility]/HCC)- Primary CARLOS (obstructive sleep apnea) Obstructive sleep apnea (adult) (pediatric) Lumbar radiculopathy Thoracic or lumbosacral neuritis or radiculitis, unspecified Paresthesias Disturbance of skin sensation Polypharmacy Issue of repeat prescriptions Seizure ([facility]) Other convulsions documented in this encounter [facility] [...] sensation Polypharmacy Issue of repeat prescriptions Seizure ([facility]/HCC) Other convulsions documented in this encounter [facility] HealthcareEvaluation note* Diagnosis Migraine without aura and without status migrainosus, not intractable ([facility])- Primary CARLOS (obstructive sleep apnea) Obstructive sleep apnea (adult) (pediatric) Lumbar radiculopathy Thoracic or lumbosacral neuritis or radiculitis, unspecified Degeneration of intervertebral disc of lumbar region, unspecified whether pain present Neck pain Cervicalgia Polypharmacy Issue of repeat prescriptions Seizure (CMS/HCC) Other convulsions documented in this encounter [facility] HealthcareEvaluation note* Diagnosis Onset Date Resolution Status Admit Date Chronic pain acute May 9:07am Primary osteoarthritis of le ft knee acute June 16, 025 9:07am Primary osteoarthritis of ri ght knee acute June 16 025 9:07am [facility] Work Phone: Evaluation note* Diagnosis Migraine without aura and without status migrainosus, not intractable (CMS/HCC)- Primary CARLOS (obstructive sleep apnea) Obstructive sleep apnea (adult) (pediatric) Lumbar radiculopathy Thoracic or lumbosacral neuritis or radiculitis, unspecified Degeneration of intervertebral disc of lumbar region, unspecified whether pain present Neck pain Cervicalgia Polypharmacy Issue of repeat prescriptions Seizure ([facility]) Other convulsions documented in this encounter [facility] HealthcareEvaluation note* Diagnosis Well woman exam with routine gynecological exam Routine gynecological examination Encounter for screening mammogram for malignant neoplasm of breast Osteoporosis, post-menopausal Senile osteoporosis Asymptomatic menopausal state Symptoms, such as flushing, sleeplessness, headache, lack of concentration, associated with the menopause documented in this encounter [facility] HealthcareHistory general Narrative - ReportedNortSt. Luke's University [facility] [employer] Other History general Narrative - Reported* Type [...] History ENDOMETRIAL ABLATION Surgical History WISDOM TEETH [employer] Other History general Narrative - ReportedNossm [facility] [employer] Other Hisacub general Narrative - ReportedNossm [facility] [employer] Other History general Narrative - Reported* Type [...] History WISDOM TEETH Hospitalization History see above [place] [employer] Other Hospital Discharge instructions No data available for this section [facility] No data available for this section [facility] reason for referral (narrative)No reason for referral information availableTrinity Health System Work Phone: Summary Purpose Family History Relationship Condition Age [...] neoplasm Unknown son Nephromegaly Unknown Advance Directives Advance Directive Response Recorded [...] For Pain Control m25.552 m47.817 Chief Complaint Med Refill For Pain Control m25.552 Increase Buttock Radiating To Leg Pain m47.817 pain Chief Complaint Increase Buttock Rad iating To Leg Pain m47.817 pain med refill Reason for Visit Chronic pain Fibromyalgia Lumbosacral spondylosis without myelopathy Sacroiliitis Chief Complaint med refill med refill Reason for Visit Chronic pain Fibromyalgia Lumbosacral spondylosis without myelopathy Sacroiliitis Chronic pain Fibromyalgia Lumbosacral spondylosis without myelopathy Osteoarthritis of both knees Sacroiliitis Thoracic spondylosis Chief Complaint med refill Reason for Visit Chronic pain [...] 9:07am Primary osteoarthritis of left knee Febr uary 2024 9:07am Primary osteoarthritis of right knee Feb ruary 2024 9:07am Chief Complaint Admit Date April 27, 2024 8:20am med refill June 16, 2024 9:07am steroid injection L knee/med refill [facility] 2024 2:53pm Reason for Visit Admit Date Chronic pain June 16, 2024 9:07am Primary osteoarthritis of left knee Febr uary 2024 9:07am Primary osteoarthritis of right knee [...] 2024 10:32am Primary osteoarthritis of right knee Sep 10:32am Chief Complaint Admit Date December 02, 2024 10: 00am MED REFILL/ bilat knee steroid injection December 30, 2024 2:50pm Chief Complaint Admit Date 2024 10 :00am MED REFILL/ bilat knee steroid injection December 30, 2024 2:50pm med refill for chronic pain January 202024 11:42am Reason for Visit Admit Date Chronic pain December 30, 2024 2:50pm Primary osteoarthritis of left knee Dec 2:50pm Primary osteoarthritis of right knee Sep 2024 2:50pm Chronic pain January 20, 2025 11:42am Primary osteoarthritis of left knee Dec 11:42am Primary osteoarthritis of right knee Sep 2024 11:42am Additional Source Comments INFORMATION SOURCE (unrecogn ized section and content) DATE CREATED AUTHOR 05/03/2021 [facility] DATE CREATED AUTHOR AUTHOR'S ORGANIZ ATION 08/30/2022 [facility] DATE CREATED AUTHOR AUTHOR'S ORGANIZ ATION 02/14/2024 [facility] DATE CREATED AUTHOR AUTHOR'S ORGANIZ ATION 02/16/2024 [facility] DATE CREATED AUTHOR AUTHOR'S ORGANIZ ATION 09/23/2024 [facility] DATE CREATED AUTHOR AUTHOR'S ORGANIZ ATION 09/24/2024 [facility] DATE CREATED AUTHOR AUTHOR'S ORGANIZ ATION 09/30/2024 [facility] DATE CREATED AUTHOR AUTHOR'S ORGANIZ ATION 01/18/2025 [facility] DATE CREATED AUTHOR AUTHOR'S ORGANIZ ATION 01/19/2025 [facility] Care Team (unrecognized sect ion and content) Team Status: Active Member Role Status Dates Alyssa Arreola NP-C Primary Care Provider Active Team Status: Active Member Role Status Dates Alyssa Arreola NP-C Primary Care Provider Active Start: December 02, [...] MATTHIAS Altamirano Primary Care Provider Active Start: July 08, 2024 End: July 08, 2024 Asif Cox MD Attending Provider Active Sta rt: July 08, 2024 End: July 08, 2024 Team Status: Active Member Role Status Dates Alyssa Arreola NP-Jess Primary Care Antonina gonzalez, Attending Provider Active Start: August 04, 2024 Team Status: Active Member Role Status Dates Alyssa Arreola NP-C Primary Care Provider Active Start: August 12, 2024 Jolene Morales LPN Attending Provider Active S tart: August 12, 2024 Team Status: Active Member Role Status Dates Alyssa Lesly Maxwell , COLOR TECHNICIAN-C Primary Care Provider Active Start: September 16, 2024 Alexey Maki MD Attending Provider Active Start: September 16, 2024 Team Status: Inactive Member Role Status Dates Alyssa Arreola COLOR TECHNICIAN-C Primary Care Provider Active Start: September 29, 2024 End: September 29, 2024 Destini Kilgore , COLOR TECHNICIAN Attending Provider Active Start: September 29, 2024 End: September 29, 2024 Team Status: Active Member Role Status Dates Alyssa Arreola COLOR TECHNICIAN-C Primary Care Provider Active Start: April 27, 2024 Alexey Mkai MD Attending Provider Active Start: April 27, 2024 Team Status: Inactive Member Role Status Dates Alyssa Arreola COLOR TECHNICIAN-C Primary Care Provider Active Start: June 16, 2024 End: June 16, 2024 Destini Kilgore , COLOR TECHNICIAN Attending Provider Active Start: June 16, 2024 End: June 16, 2024 Team Status: Inactive Member Role Status Dates Alyssa Arreola COLOR TECHNICIAN-C Primary Care Provider Active Start: December 11, 2023 End: December 11, 2023 Destini Kilgore , COLOR TECHNICIAN Attending Provider Active Start: December 11, 2023 End: December 11, 2023 Team Status: Active Member Role Status Dates Alyssa Arreola COLOR TECHNICIAN-C Primary Care Provider Active Start: December 16, 2023 Alexey Maki MD Attending Provider Active Start: December 16, 2023 Team Status: Inactive Member Role Status Dates Alyssa Arreola COLOR TECHNICIAN-C Primary Care Provider Active Start: January 02, 2024 End: January 02, 2024 Asif Cox MD Attending Provider Active Sta rt: January 02, 2024 End: January 02, 2024 Team Status: Active Member Role Status Dates Alyssa Arreola COLOR TECHNICIAN-C Primary Care Provider Active Start: June 24, 2023 Alexey Maki MD Attending Provider Active Start: June 24, 2023 Team Status: Inactive Member Role Status Dates Alyssa rAreola COLOR TECHNICIAN-C Primary Care Provider Active Start: July 16, 2023 End: July 16, 2023 Asif Cox MD Active Start: [facility] 2023 End: July 16, 2023 Destini Kilgore , COLOR TECHNICIAN Attending Provider Active Start: July 16, 2023 End: July 16, 2023 Team Status: Inactive Member Role Status Dates Alyssa Arreola COLOR TECHNICIAN-C Primary Care Provider Active Start: September 04, 2023 End: September 04, 2023 Destini Kilgore , COLOR TECHNICIAN Attending Provider Active Start: September 04, 2023 End: September 04, 2023 Team Status: Inactive Member Role Status Dates Asif Cox MD Attending Provider Active Sta rt: May 19, 2023 End: May 19, 2023 Team Status: Inactive Member Role Status Dates Alyssa Arreola COLOR TECHNICIAN-C Primary Care Provider Active Start: May 19, 2023 End: May 19, 2023 Asif Cox MD Attending Provider Active Sta rt: May 19, 2023 End: May 19, 2023 Team Status: Inactive Member Role Status Dates Alyssa Arreola COLOR TECHNICIAN-C Primary Care Provider Active Start: June 04, 2023 End: June 04, 2023 Asif Cox MD Attending Provider Active Sta rt: June 04, 2023 End: June 04, 2023 Team Status: Active Member Role Status Dates Alyssa Arreola COLOR TECHNICIAN-C Primary Care Provider Active Start: February 25, 2023 Alexey Maki MD Attending Provider Active Start: February 25, 2023 Team Status: Inactive Member Role Status Dates Destini Kilgore COLOR TECHNICIAN Attending Provider Active Start: April 09, 2023 End: April 09, 2023 Team Status: Inactive Member Role Status Dates Alyssa Arreola COLOR TECHNICIAN-C Primary Care Provider Active Start: April 09, 2023 End: April 09, 2023 Destini Kilgore , COLOR TECHNICIAN Attending Provider Active Start: April 09, 2023 End: April 09, 2023 Team Status: Inactive Member Role Status Dates Alyssa Arreola COLOR TECHNICIAN-C Primary Care Provider Active Asif Cox MD Attending Provider Active Team Status: Inactive Member Role Status Dates Alyssa Arreola COLOR TECHNICIAN-C Primary Care Provider Active Destinihayden Kilgore , COLOR TECHNICIAN Attending Provider Active Team Status: Active Member Role Status Dates Alyssa Arreola COLOR TECHNICIAN-C Primary Care Provider Active Start: March 06, 2023 Alexey Maki MD Attending Provider Active Start: March 06, 2023 Team Status: Active Member Role Status Dates MATTHIAS Altamirano Primary Care Provider Active Start: October 15, 2023 Alexey Maki MD Attending Provider Active Start: October 15, 2023 Team Status: Active Member Role Status Dates RAMONA AltamiranoC Primary Care Provider Active Start: January 06, 2024 Alexey Maki MD Attending Provider Active Start: January 06, 2024 Team Status: Inactive Member Role Status Dates MATTHIAS Altamirano Primary Care Provider Active Start: January 15, 2024 End: January 15, 2024 Asif Cox MD Attending Provider Active Sta rt: January 15, 2024 End: January 15, 2024 [employer] Principal Solution Specialist Relationship Specialty Start Date End Date Alyssa Arreola MD [address] [place] [id number] Referring Physician Family Medicine 09/24/23 Azure Principal Solution Specialist Relationship Specialty Start Date End Date Alyssa Arreola MD [address] [place] [address] [phone] Referring Physician Family Medicine 09/24/23 Azure Principal Solution Specialist Relationship Specialty Start Date End Date Alyssa Arreola MD [address] [place] [id number] Referring Physician Family Medicine 09/24/23 Azure Principal Solution Specialist Relationship Specialty Start Date End Date Alyssa Arreola MD [address] [place] [phone] Referring Physician Family Medicine 09/24/23 Team Status: [...] February 25, 2024 End: February 25, 2024 Azure Principal Solution Specialist Relationship Specialty Start Date End Date Alyssa Arreola MD [address] [place] [address] [phone] Referring Physician Family Medicine 09/24/23 Joel Jerez DO [address] [address] Referring Physician Neurology 03/04/24 Azure Principal Solution Specialist Relationship Specialty Start Date End Date Alyssa Arreola MD [address] [place] [phone] Referring Physician Family Medicine 09/24/23 Joel Jerez DO [address] [address] Referring Physician Neurology 03/04/24 Azure Principal Solution Specialist Relationship Specialty Start Date End Date Alyssa Arreola MD [address] [place] [phone] Referring Physician Family Medicine 09/24/23 Joel Jerez DO [address] [phone] Referring Physician Neurology 03/04/24 Azure Principal Solution Specialist Relationship Specialty Start Date End Date Unallocated, [place], [address] [place] [address] PCP - General Family Medicine 05/05/24 Alyssa Arreola MD [address] [place] [phone] Referring Physician Family Medicine 09/24/23 Joel Jerez DO [address] [place] [phone] Referring Physician Neurology 03/04/24 Azure Principal Solution Specialist Relationship Specialty Start Date End Date Unallocated, Jeni Dahl MD [facility] [place] [address] PCP - General Family Medicine 05/05/24 Alyssa Arreola MD [address] [place], [place] [phone] Referring Physician Family Medicine 09/24/23 Joel Jerez DO [address] [place] [address] Referring Physician Neurology 03/04/24 Azure Principal Solution Specialist Relationship Specialty Start Date End Date Unallocated, Jeni Dahl MD [address] [place] [id number] PCP - General Family Medicine 05/05/24 Alyssa Arreola MD [address] [place], [place] [phone] Referring Physician Family Medicine 09/24/23 Joel Jerez DO [address] [place] [phone] Referring Physician Neurology 03/04/24 Azure Principal Solution Specialist Relationship Specialty Start Date End Date Unallocated, Jeni Dahl MD [address] [place], [place] [address] [address] PCP - General Family Medicine 05/05/24 Alyssa Arreola MD [address] [place] [phone] Referring Physician Family Medicine 09/24/23 Joel Jerez DO [address] [place] [phone] Referring Physician Neurology 03/04/24 Azure Principal Solution Specialist Relationship Specialty Start Date End Date Unallocated, Jeni Dahl MD [facility] [place] [address] PCP - General Family Medicine 05/05/24 Alyssa Arreola MD [address] [place] [phone] Referring Physician Family Medicine 09/24/23 Joel Jerez, [address] [place] [phone] Referring Physician Neurology 03/04/24 Azure Principal Solution Specialist Relationship Specialty Start Date End Date Unallocated, Jeni Dahl MD [address] [place] [id number] PCP - General Family Medicine 05/05/24 Alyssa Arreola MD [address] [place] [phone] Referring Physician Family Medicine 09/24/23 Joel Jerez DO [address] [place] [phone] Referring Physician Neurology 03/04/24 Team Status: Active Member Role Status Dates MATTHIAS Altamirano Primary Care Provider Active Start: 2024 Alexey Maki MD Attending Provider Active Start: 2024 Team Status: Inactive Member Role Status Dates MATTHIAS Altamirano Primary Care Provider Active Start: January 20, 2025 End: January 20, 2025 Destini Kilgore NP Attending Provider Active Start: January 20, 2025 End: January 20, 2025 Azure Principal Solution Specialist Relationship Specialty Start Date End Date Unallocated, Jeni Dahl MD [address] [facility] [place] [address] PCP - General Family Medicine 05/05/24 Alyssa Arreola MD [address] [place] [address] Referring Physician Family Medicine 09/24/23 Joel Jerez DO [address] [phone] Referring Physician Neurology 03/04/24 REASON FOR [...] BE BASED ON THE PRIMARY CLINICAL RECORDS. [facility]. provides no warranty or guarantee of the accuracy or completeness of information in this document.
--- NOTE | 2025-01-28 09:35 | MM_ITS ---
Patient Name: DOUG CARO MR#: [id number] : 1970 Exam Date: 01/28/2025 Ordering Doctor: DIVYA LECHUGA . RADIOLOGY REPORT PROCEDURE: MM TOMOSYNTHESIS SCREENING BI COMPARISON: MM TOMOSYNTHESIS SCREENING BI, 05/20/2023. MG MAMM SCREEN 3D LUCINDA CAD, 11/22/2021. MG MAMM SCREEN LUCINDA W CAD, 11/17/2019. MG MAMM LUCINDA SCRN W CAD DIG, 11/16/2012. INDICATIONS: screening for malignant of breast Calculator Name [facility] Breast Cancer Risk Assessment Tool 5 Year Breast Cancer Risk 1.20% Lifetime Breast Cancer Risk 8.10% Personal Breast Cancer No Personal Ovarian Cancer No Treatments None Family Cancers Mother with uterine cancer at age 75. LOCATION: [facility] BREAST COMPOSITION: The breasts are heterogeneously dense, which may obscure small masses. FINDINGS: DIAGNOSTIC CATEGORY 1--NEGATIVE. RIGHT BREAST: No significant suspicious finding. LEFT BREAST: No significant suspicious finding. RECOMMENDATIONS: ROUTINE MAMMOGRAM AND CLINICAL EVALUATION IN 12 MONTHS. Dictated by: Memo Blanchard DO on 01/28/2025 at 15:49 Approved by: Memo Blanchard DO on 01/28/2025 at 15:50
== END 2025-01-28 09:11 | disposition home or self-care (01) ==
LOC: MAMMO 09:10
PROVIDERS: PCP Nurse Practitioner Family; Visit Provider Physician Assistant
DX: Z12.31 Encounter for screening mammogram for malignant neoplasm of breast (principal); M81.0 Age-related osteoporosis without current pathological fracture; Z80.8 Family history of malignant neoplasm of other organs or systems
CPT/HCPCS: 77063; 77067; 77080